=== PATIENT | male | born 1935 | race Caucasian/White ===

== ENCOUNTER → 2018-03-26 07:42 | Outpatient (CLI) | payer MEDICARE, OTHER, SELFPAY ==
[2018-03-26 09:13] LABS: Add Manual Diff / Slide Review NO; Basophils Percent Auto 0.5 % (0-2); Eosinophils Percent Auto 1.7 % (2-4); Hematocrit 43.6 % (41-53); Hemoglobin 14.8 g/dL (13.5-17.5); Lymphocytes Percent Auto 24.9 % (25-40); Mean Corpuscular Hemoglobin 32.6 PG (26-34); Mean Corpuscular Volume 95.9 fL (80-100); Monocytes Percent Auto 8.2 % (3-14); Neutrophils Absolute Auto 4900 /uL (3000-5900); Neutrophils Percent Auto 64.7 % (50-75); Platelet Count 211 X10^3/uL (150-400); Red Blood Cell Count 4.55 X10^6/uL (4.5-5.9); Red Cell Distribution Width 13.2 % (11.6-14.8); White Blood Cell Count 7.5 X10^3/uL (4.5-11.0)
[2018-03-26 09:37] LABS: Alanine Aminotransferase 34 IU/L (21-72); Albumin 4.3 g/dL (3.5-5.0); Albumin Globulin Ratio 1.3 (1.0-2.8); Alkaline Phosphatase 74 U/L (38-126); Aspartate Aminotransferase 41 IU/L (17-59); BUN Creatinine Ratio 32.5 (6-22); Bilirubin Total 0.7 mg/dL (0.2-1.3); Blood Urea Nitrogen 26 mg/dL (9-20); Calcium 9.7 mg/dL (8.4-10.2); Carbon Dioxide 30 mmol/L (22-32); Chloride 104 mmol/L (98-107); Cholesterol 197 mg/dL (140-199); Estimated Glomerular Filt Rate > 60.0 mL/min (>60); Globulin 3.4 g/dL (1.7-4.1); Glucose 91 mg/dL (80-110); HDL Cholesterol 39 mg/dL (40-60); HEMOLYSIS < 15 (0-50); LDL Cholesterol Calculated 110 mg/dL (<100); Potassium 4.6 mmol/L (3.4-5.1); Sodium 144 mmol/L (137-145); Total Protein 7.7 g/dL (6.3-8.2); Triglycerides 239 mg/dL (35-150)
[2018-03-26 10:18] LABS: Free T4, Direct Thyroxine 0.98 ng/dL (0.78-2.19)
[2018-03-26 10:32] LABS: Thyroid Stimulating Hormone 2.44 uIU/mL (0.47-4.68)
== END ==
PROVIDERS: Visit Provider Internal Medicine
DX: I10 Essential (primary) hypertension (principal); I25.10 Atherosclerotic heart disease of native coronary artery without angina pectoris; E78.5 Hyperlipidemia, unspecified
CPT/HCPCS: 36415; 80053; 80061; 84439; 84443; 85025

== ENCOUNTER → 2018-05-21 08:18 | Outpatient (CLI) | payer MEDICARE, OTHER, SELFPAY ==
--- NOTE | 2018-05-21 08:21 | DI.RAD.S_ITS ---
PROCEDURE: XR LUMBAR SPINE MIN 4V INDICATIONS: Spinal stenosis, site unspecified TECHNIQUE: 5 total views of the lumbar spine were acquired, including bilateral oblique views. COMPARISON: None. FINDINGS: Bones: Mild levoconvex scoliotic curvature is noted. 5 nonrib-bearing, lumbar type vertebral bodies are seen. There is minimal retrolisthesis at L1-L2. There is minimal anterolisthesis seen at the L3-L4 level. Minimal retrolisthesis is seen at L4-L5. There is minimal anterolisthesis at L5-S1. There is moderate to severe disc space narrowing at L4-L5, with moderate disc space narrowing at L1-L2 and mild to moderate disc space narrowing at L2-L3, L2-L4, and L5-S1. Facet arthropathy is seen throughout, which is most prominent inferiorly. Soft tissues: Overlying bowel gas pattern is normal. No suspicious soft tissue calcifications. Oblique images: No pars defects. IMPRESSION: Multiple levels of lower spine degenerative change are seen, which are worst at the L4-L5 level. No pars defects are seen. Mild levoconvex scoliotic curvature. Relatively prominent lower lumbar spine facet arthropathy. Dictated by: Omid Turner M.D. on 05/21/2018 at 8:29 Approved by: Omid Turner M.D. on 05/21/2018 at 8:32
== END ==
PROVIDERS: PCP Internal Medicine; Visit Provider Physical Medicine & Rehabilitation
DX: M51.36 Other intervertebral disc degeneration, lumbar region (principal); M47.816 Spondylosis without myelopathy or radiculopathy, lumbar region; M48.061 Spinal stenosis, lumbar region without neurogenic claudication; M96.1 Postlaminectomy syndrome, not elsewhere classified
CPT/HCPCS: 72110

== ENCOUNTER 2018-06-12 14:01 | Outpatient (CLI) | payer MEDICARE, OTHER, SELFPAY ==
--- NOTE | 2018-06-12 14:02 | DI.RAD.S_ITS ---
PROCEDURE: PAIN L/S FACET INJ/BLK 1ST ARON COMPARISON: None. INDICATIONS: SPONDYLOSIS FINDINGS: 6 intraoperative fluoroscopy images demonstrate localization and injection of left and right L4-L5 and L5-S1 facet joints. IMPRESSION: Fluoroscopy for pain management. Dictated by: Kaylie Brennan M.D. on 06/12/2018 at 17:19 Approved by: Kaylie Brennan M.D. on 06/12/2018 at 17:20
[2018-06-12 14:33] VITALS: BP 144/87; PULSE 75; RESP 20; TEMP 36.2; O2SAT 99
[2018-06-12 14:44] VITALS: BP 159/89; PULSE 75; RESP 16; O2SAT 100
[2018-06-12 14:54] VITALS: BP 158/99; PULSE 81; RESP 16; O2SAT 99
[2018-06-12] MEDS: IOPAMIDOL 15 ML VIAL 3 ML INJ (14:55)
[2018-06-12] MEDS: BUPIVACAINE 0.5% (PF) VIAL 2 ML INJ (14:56)
[2018-06-12] MEDS: BETAMETHASONE 30 MG/5 ML MDV 12 MG INJ (14:56)
[2018-06-12] MEDS: LIDOCAINE 1% 20 ML INJ 10 ML INJ (14:56)
[2018-06-12 14:57] VITALS: BP 160/91; PULSE 79; RESP 16; O2SAT 99
--- NOTE | 2018-06-12 14:59 | PC.NURSE ---
no sedation meds given during procedure. pt being assisted from table and transported to post proc area in stable position
--- NOTE | 2018-06-12 15:03 | P.PCN_ITS ---
Procedures Date/Time Date of procedure: 06/12/18 Time of procedure: 15:02 General Procedure description: PREOP DIAGNOSIS 1. FACET ARTHROPATHY 2. AXIAL LBP 3. MULTILEVEL DDD POST OP DIAGNOSIS 1. FACET ARTHROPATHY 2. AXIAL LBP 3. MULTILEVEL DDD PROCEDURES 1. FLUORSCOPICALLY GUIDED CONTRAST CONTROLLED FACET JOINT INJECTIONS BILATERAL L4/5, L5/S1 PHYSICIAN: Bry Marie, DO INDICATIONS Chuckie is referred by Dr. Proctor for treatment of Axial LBP FINDINGS Multilevel Facet Arthropathy with Clinically significant axial LBP DESCRIPTION OF PROCEDURE Fluoroscopically guided, contrast-controlled bilateral L4/5, L5/S1 facet joint injections. Following denial of allergy and review of potential side effects and complications, including, but not necessarily limited to, infection, allergic reaction, local tissue breakdown, stroke, temporary or permanent nerve injury, paralysis, and possible , the patient indicated that the patient understood and agreed to proceed. An informed consent document was signed by the patient, witnessed by a nurse, and placed in the patient's chart. Additionally, other treatment options including medications, modalities, and physical therapy were reviewed with the patient. After review of previous anaesthesic history and IV conscious sedation the patient was deemed safe to proceed with todays procedure with IV conscious sedation as ASA class II designation. Safety time-out was performed to confirm patient ID, procedure to be performed and site of procedure. IV sedation was deemed unnecessary and thus not administered by the RN after DO order, during the course of the procedure while the patient remained responsive to all verbal commands In the prone position, following sterile prep and drape of the lumbar region, the posterior aspect of the L4/5, L5/S1 facet joints were identified fluoroscopically. The skin was anesthetized via a 25-gauge 1.5-inch needle with 1% lidocaine solution into the corresponding facet joints. At this point, a 22-gauge 3.5-inch spinal needle was atraumatically introduced and advanced under fluoroscopic guidance into the corresponding facet joints. Following negative aspiration, injections of approximately 0.2-cc of Isovue 200 confirmed interarticular placement without vascular uptake. The identical procedure was then performed at the L4/5, L5/S1 facet joints on the left. Radiological data, including multiple fluoroscopic views of the lumbosacral spine, reveal a spinal needle at the L4/5, L5/S1 facet joints bilaterally. Subsequent views show flow of contrast material both superiorly and inferiorly within the joint space without vascular or intrathecal uptake. At this point, a total of 0.5 cc including a mixture of 0.25cc Marcaine and 0.25cc betamethasone was injected without complication into each of the corresponding facet joints. The patient tolerated the procedure well without signs or symptoms of complications prior to transfer to the recovery area continued monitoring without incident. The patient was then transferred to the recovery area where they were observed for an appropriate period of time after the injection. The patient reported a VAS score of 7 prior to the procedure and a post- procedure VAS of 0. Total Fluoroscopy Time: 20.3 seconds Total Conscious Sedation Time: 24min POST OP INSTRUCTIONS The patient was provided a Pain Log to continue to record their response to the target-specific procedure prior to follow-up visit with their referring physician. Additionally, specific post-injection care instructions and a contact number to our office were provided if concerns arise regarding possible complications associated with the procedure are suspected. Bry Marie, Complications: none
--- NOTE | 2018-06-12 15:28 | PC.NURSE ---
pt went unresponsive post procedure, dr granados at bedside and pt taken to er via stretcher,. pt placed on monitor nand iv started. pt care given over to dr beasley er.
--- NOTE | 2018-06-13 12:43 | PC.NURSE ---
FOLLOW UP CALL MADE, PT STATES PAIN DECREASED SINCE PROCEDURE AND DENIES ANY FURTHER SYNCOPAL EPISODES AFTER NOTED EPISODE IN POST CARE AREA AFTER PROCEDURE IN WHICH PT WAS TRANSFERED TO ED FOR FURTHER EVALUATION.
== END 2018-06-12 16:12 | disposition admitted as inpatient to this hospital (09) ==
LOC: RAD 14:01
PROVIDERS: PCP Internal Medicine; Visit Provider Physical Medicine & Rehabilitation
DX: M47.816 Spondylosis without myelopathy or radiculopathy, lumbar region (principal); M47.817 Spondylosis without myelopathy or radiculopathy, lumbosacral region; M51.36 Other intervertebral disc degeneration, lumbar region; M51.37 Other intervertebral disc degeneration, lumbosacral region; M96.1 Postlaminectomy syndrome, not elsewhere classified; M54.5 Low back pain; M48.00 Spinal stenosis, site unspecified; G89.29 Other chronic pain; G62.9 Polyneuropathy, unspecified
CPT/HCPCS: 64493; 64494; J0702; J2250

== ENCOUNTER 2018-06-12 15:18 | Emergency (ER) | payer MEDICARE, OTHER, SELFPAY ==
--- NOTE | 2018-06-12 15:24 | DI.CT.S_ITS ---
PROCEDURE: CT HEAD/BRAIN WO CON INDICATIONS: syncope on Xarelto, previous CVA TECHNIQUE: Noncontrast 4.5 mm thick angled axial sections acquired from the foramen magnum to the vertex, with coronal and sagittal reformats. For radiation dose reduction, the following was used: automated exposure control, adjustment of mA and/or kV according to patient size. COMPARISON: Outside Facility, RG, CT HEAD WITH CONTRAST, 10/06/2016, 13:17. FINDINGS: Image quality: Excellent. CSF spaces: Basal cisterns are patent. No extra-axial fluid collections. The ventricles are symmetric in size and shape. Brain: No intracranial bleeds or masses. There is cerebral volume loss for age, with resultant ventricular and sulcal prominence. There are periventricular and deep white matter chronic small vessel ischemic changes. There is intracranial internal carotid artery atherosclerosis. Skull and face: There is a chronic appearing bony defect involving the right frontal bone, which is partially healed compared to the outside 2017 CT examination. Calvarium and visualized facial bones appear intact, without suspicious lesions. Sinuses: Visualized sinuses and mastoids are clear. IMPRESSION: Negative for acute hemorrhage. No doe CT findings of acute stroke can be seen. If there is strong clinical suspicion for an acute stroke, please consider an MRI for further evaluation, as it is more sensitive (assuming that there is no contraindication to MRI). Healing lesion of the right frontal bone. Dictated by: Omid Turner M.D. on 06/12/2018 at 14:49 Approved by: Omid Turner M.D. on 06/12/2018 at 14:51
--- NOTE | 2018-06-12 15:24 | DI.RAD.S_ITS ---
PROCEDURE: XR CHEST 1V INDICATIONS: syncope TECHNIQUE: One view of the chest was acquired. COMPARISON: None. FINDINGS: Surgical changes and devices: An electronic device in the left thorax is noted. Lungs and pleura: No pleural effusions or pneumothorax. Lungs are clear. Mediastinum: Mediastinal contours appear normal. Heart size is normal. Bones and chest wall: There is left second rib fractures anteriorly. Overlying soft tissues appear unremarkable. IMPRESSION: 1. No acute cardiopulmonary disease. 2. Left second rib fracture of uncertain chronicity. Dictated by: Kaylie Brennan M.D. on 06/12/2018 at 16:03 Approved by: Kaylie Brennan M.D. on 06/12/2018 at 16:05
--- NOTE | 2018-06-12 15:33 | ED.SYNCOPE ---
HPI - Syncope General Chief Complaint: Syncope Stated Complaint: Syncope Time Seen by Provider: 06/12/18 15:23 Source: patient Mode of arrival: ambulatory Limitations: no limitations History of Present Illness HPI narrative: Patient is a 83-year-old male who had a syncopal episode after a spinal injection. He is on Xarelto. He stood up got extremely lightheaded and clammy and diaphoretic. He became unresponsive briefly. His he does have a history of a CVA and has chronic left-sided eyelid droop. He is now responsive. Family states that he frequently has these episodes. He has a 3 year loop recorder. 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 The loop recorder apparently does not show anything. They now live up here he he is established with a PCP but not a supervisor commissary production. Related Data Home Medications Medication Instructions Recorded Confirmed clopidogrel 75 mg tablet 75 mg PO DAILY 03/02/18 06/08/18 gabapentin 100 mg capsule 100 mg PO DAILY 03/02/18 06/08/18 losartan 100 mg tablet 100 mg PO DAILY 03/02/18 06/12/18 zevegvnp-pza-dktdm acid 300 1 tab PO DAILY 03/02/18 06/08/18 mcg-lycopene 600 mcg-lutein 300 mcg tablet simvastatin 20 mg tablet 20 mg PO QPM 03/02/18 06/12/18 timolol maleate 0.5 % eye drops 1 drp EYE-BOTH DIRECTED ml 05/04/18 06/12/18 Previous Rx's Medication Instructions Recorded gabapentin 400 mg capsule 400 mg PO TID #90 cap 05/10/18 Allergies Allergy/AdvReac Type Severity Reaction Status Date / Time alprazolam [From Xanax] Allergy Severe Passed Out Verified 06/12/18 14:38 oxycodone Allergy Severe Passed Out Verified 06/12/18 14:38 Review of Systems Review of Systems All systems reviewed & are unremarkable except as noted in HPI and below Constitutional Denies chills, Denies fever(s), Denies lethargy and Denies weakness Cardiovascular Reports as per HPI, Reports syncope, Denies dyspnea and Denies dyspnea on exertion Respiratory Denies cough, Denies dyspnea, Denies dyspnea on exertion and Denies wheezing Gastrointestinal Gastrointestinal: Denies abdominal pain, Denies change in bowel habits, Denies diarrhea, Denies nausea and Denies vomiting Musculoskeletal Denies back pain, Denies muscle weakness, Denies numbness and Denies tingling Integumentary/Breasts Denies pruritus, Denies erythema, Denies rash and Denies wounds Neurologic Reports syncope, Denies numbness, Denies tingling and Denies weakness Allergic/Immunologic Denies wheezing [facility] Medical History Hypertension (Chronic ~2016) Hyperlipidemia (Chronic) CAD (coronary artery disease) (Chronic ~2007) Spinal stenosis (Chronic) Osteoarthritis (Chronic) Chronic back pain (Chronic) Vertigo (Chronic ~2013) Sick sinus syndrome (Chronic) Peripheral neuropathy (Chronic ~1979) H/O: stroke (Inactive 04/10/16) Vision disorder (Chronic) Measles (Resolved) Mumps (Resolved) Squamous cell skin cancer (Resolved ~2015) Colon polyps (Inactive ~2010) Skin cancer (Inactive) Family History Father No problems noted. Mother No problems noted. Brother Diabetes mellitus Hypertension Hyperlipidemia Grandfather No problems noted. 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 travel history: other (Travel a lot) leisure activities: music and other (Writing, travel) Smoking Status: Former smoker Tobacco: How many years used: 10 Smokeless tobacco user: other (cigarettes) quit status: quit date established (1970) alcohol intake: current (1-2 drinks per week) substance use type: does not use Exam Initial Vital Signs Initial Vital Signs: Vital Signs Temperature 97.6 F 06/12/18 16:00 Pulse Rate 59 L 06/12/18 16:00 Respiratory Rate 20 06/12/18 16:00 Blood Pressure 91/63 06/12/18 16:00 Pulse Oximetry 97 06/12/18 16:00 GENERAL: Diaphoretic pale elderly male responsive follows commands currently in Trendelenburg position HEENT: Head atraumatic,EOMI, pupils reactive, left eye droop CARDIOVASCULAR: Regular rate and rhythm without murmurs, rubs or gallops. RESPIRATORY: Breath sounds equal bilaterally, no wheezes rales or rhonchi. ABDOMEN: Soft, nontender. Normoactive bowel sounds all 4 quadrants. No guarding or rebound. EXTREMITIES: Normal range of motion, no clubbing or edema. Neurovascularly intact NEUROLOGICAL: Alert and oriented x4.Normal gait and speech. Cranial nerves II through XII grossly intact. Government Relations Director strength equal bilaterally moving all extremities SKIN: Warm, dry, no laceration, no petechiae, no rashes or lesions. Course Orders Ordered: Discontinued Medications Sodium Chloride (Normal Saline 0.9%) 1,000 mls @ 1,000 mls/hr IV BOLUS ONE Stop: 06/12/18 16:23 Last Infusion: 06/12/18 17:11 Dose: 0 mls/hr Admin: 06/12/18 16:00 Dose: 1,000 mls/hr Vital Signs - 8 hr 06/12/18 16:00 Temperature 97.6 F Pulse Rate 59 L Respiratory Rate 20 Blood Pressure 91/63 Pulse Oximetry 97 MDM - Syncope Lab Data Attestation: I reviewed the patient's lab results. Result diagrams: 06/12/18 15:30 06/12/18 15:30 Lab Results 06/12/18 06/12/18 06/12/18 Range/Units 15:30 15:30 15:30 WBC 8.4 (4.5-11.0) X10^3/uL RBC 4.14 L (4.5-5.9) X10^6/uL Hgb 13.5 (13.5-17.5) g/dL Hct 39.6 L (41-53) % MCV 95.8 (80-100) fL MCH 32.6 (26-34) PG MCHC 34.0 (30-36) % RDW 13.4 (11.6-14.8) % Plt Count 209 (150-400) X10^3/uL Neut % (Auto) 53.7 (50-75) % Lymph % (Auto) 36.3 (25-40) % Robertson % (Auto) 8.6 (3-14) % Eos % (Auto) 1.1 L (2-4) % Baso % (Auto) 0.3 (0-2) % Neut # (Auto) 4500 (1896-7568) /uL PT 11.3 (10.1-12.7) SECONDS INR 1.1 (0.9-1.3) Sodium 141 (137-145) mmol/L Potassium 4.4 (3.4-5.1) mmol/L Chloride 106 (98-107) mmol/L Carbon Dioxide 24 (22-32) mmol/L BUN 22 H (9-20) mg/dL Creatinine 0.80 (0.66-1.25) mg/dL Estimated GFR > 60.0 (>60) mL/min BUN/Creatinine Ratio 27.5 H (6-22) Glucose 102 (80-110) mg/dL Calcium 8.6 (8.4-10.2) mg/dL Total Bilirubin 0.5 (0.2-1.3) mg/dL AST 38 (17-59) IU/L ALT 41 (21-72) IU/L Alkaline Phosphatase 66 (38-126) U/L Total Creatine Kinase 231 H (55-170) U/L CK-MB (CK-2) 8.01 H (<2.37) ng/mL CK-MB (CK-2) Rel Index 3.5 (1.5-5.0) % Troponin I < 0.012 (0.01-0.034) ng/mL Total Protein 7.0 (6.3-8.2) g/dL Albumin 4.0 (3.5-5.0) g/dL Globulin 3.0 (1.7-4.1) g/dL Albumin/Globulin Ratio 1.3 (1.0-2.8) Point of Care Testing Glucose POC 91 Imaging Data Chest x-ray: Radiologist's impression: PROCEDURE: XR CHEST 1V INDICATIONS: syncope TECHNIQUE: One view of the chest was acquired. COMPARISON: None. FINDINGS: Surgical changes and devices: An electronic device in the left thorax is noted. Lungs and pleura: No pleural effusions or pneumothorax. Lungs are clear. Mediastinum: Mediastinal contours appear normal. Heart size is normal. Bones and chest wall: There is left second rib fractures anteriorly. Overlying soft tissues appear unremarkable. IMPRESSION: 1. No acute cardiopulmonary disease. 2. Left second rib fracture of uncertain chronicity. Dictated by: Kaylie Brennan M.D. on 06/12/2018 at 16:03 CT scan - head: Radiologist's impression: PROCEDURE: CT HEAD/BRAIN WO CON INDICATIONS: syncope on Xarelto, previous CVA TECHNIQUE: Noncontrast 4.5 mm thick angled axial sections acquired from the foramen magnum to the vertex, with coronal and sagittal reformats. For radiation dose reduction, the following was used: automated exposure control, adjustment of mA and/or kV according to patient size. COMPARISON: Outside Facility, RG, CT HEAD WITH CONTRAST, 10/06/2016, 13:17. FINDINGS: Image quality: Excellent. CSF spaces: Basal cisterns are patent. No extra-axial fluid collections. The ventricles are symmetric in size and shape. Brain: No intracranial bleeds or masses. There is cerebral volume loss for age, with resultant ventricular and sulcal prominence. There are periventricular and deep white matter chronic small vessel ischemic changes. There is intracranial internal carotid artery atherosclerosis. Skull and face: There is a chronic appearing bony defect involving the right frontal bone, which is partially healed compared to the outside 2017 CT examination. Calvarium and visualized facial bones appear intact, without suspicious lesions. Sinuses: Visualized sinuses and mastoids are clear. IMPRESSION: Negative for acute hemorrhage. No doe CT findings of acute stroke can be seen. If there is strong clinical suspicion for an acute stroke, please consider an MRI for further evaluation, as it is more sensitive (assuming that there is no contraindication to MRI). Healing lesion of the right frontal bone. Dictated by: Omid Turner M.D. on 06/12/2018 at 14:49 Approved by: Omid Turner M.D. on 06/12/2018 at 14:51 ECG Data Attestation: I personally reviewed and interpreted this ECG as follows: Prior ECG tracings: not available for review Interpretation: Normal sinus rhythm rate [address] changes no T-wave inversions AR interval 167 QRS 83, QTC 396 MDM Narrative Medical decision making narrative: Patient is ambulatory to the restroom he is overall feeling much better. Family states this is very typical of his previous episodes. Discharge Plan Departure Patient Disposition: Home Clinical Impression: Syncope, vasovagal Discharge Date/Time: 06/12/18 17:36 Interventions: ED Discharge Assessment Last Done: 06/12/18 17:36 Instructions: DI for Syncope in Adults (Fainting) Activity Restrictions/Additional Instructions: *You have been diagnosed with vasovagal hypotension *What to do: Recommend follow-up with local Cardiology. You should have your loop recorder evaluated *Continue to take medications as directed *Follow up with your primary care provider in 2-3 days *Return to ER if you should have recurrent syncopal episode, chest pain, heart palpitation, confusion or any new, worsening or concerning symptoms Prescriptions: No Action gabapentin 400 mg capsule 400 mg PO TID Qty: 90 RF: 2 clopidogrel 75 mg tablet 75 mg PO DAILY RF: 0 simvastatin 20 mg tablet 20 mg PO QPM RF: 0 gabapentin 100 mg capsule 100 mg PO DAILY RF: 0 losartan 100 mg tablet 100 mg PO DAILY RF: 0 fwuqgctj-cnk-TO-lycopen-lutein [Centrum Silver Men] 300-600-300 mcg tablet 1 tab PO DAILY RF: 0 timolol maleate 0.5 % drops 1 drp EYE-BOTH DIRECTED RF: 0 Referrals: Dalton Proctor MD [Primary Care Provider] - Steve Walker MD [Physician] -
[2018-06-12 15:40] LABS: Add Manual Diff / Slide Review NO; Basophils Percent Auto 0.3 % (0-2); Eosinophils Percent Auto 1.1 % (2-4); Hematocrit 39.6 % (41-53); Hemoglobin 13.5 g/dL (13.5-17.5); Lymphocytes Percent Auto 36.3 % (25-40); Mean Corpuscular Hemoglobin 32.6 PG (26-34); Mean Corpuscular Volume 95.8 fL (80-100); Monocytes Percent Auto 8.6 % (3-14); Neutrophils Absolute Auto 4500 /uL (3000-5900); Neutrophils Percent Auto 53.7 % (50-75); Platelet Count 209 X10^3/uL (150-400); Red Blood Cell Count 4.14 X10^6/uL (4.5-5.9); Red Cell Distribution Width 13.4 % (11.6-14.8); White Blood Cell Count 8.4 X10^3/uL (4.5-11.0)
[2018-06-12 15:46] LABS: INR 1.1 (0.9-1.3); Prothrombin Time 11.3 SECONDS (10.1-12.7)
[2018-06-12 15:52] LABS: Alanine Aminotransferase 41 IU/L (21-72); Albumin Globulin Ratio 1.3 (1.0-2.8); Alkaline Phosphatase 66 U/L (38-126); Aspartate Aminotransferase 38 IU/L (17-59); BUN Creatinine Ratio 27.5 (6-22); Bilirubin Total 0.5 mg/dL (0.2-1.3); Blood Urea Nitrogen 22 mg/dL (9-20); Calcium 8.6 mg/dL (8.4-10.2); Carbon Dioxide 24 mmol/L (22-32); Chloride 106 mmol/L (98-107); Creatine Kinase 231 U/L (55-170); Estimated Glomerular Filt Rate > 60.0 mL/min (>60); Glucose 102 mg/dL (80-110); HEMOLYSIS < 15 (0-50); Potassium 4.4 mmol/L (3.4-5.1); Sodium 141 mmol/L (137-145)
[2018-06-12 16:00] VITALS: BP 91/63; PULSE 59; RESP 20; TEMP 36.4; O2SAT 97
[2018-06-12] MEDS: SODIUM CHLORIDE 0.9% 1,000 ML 1000 ML IV (16:00)
[2018-06-12 16:04] LABS: Troponin I < 0.012 ng/mL (0.01-0.034)
[2018-06-12 16:07] LABS: CKMB % Relative Index 3.5 % (1.5-5.0); Creatine Kinase MB 8.01 ng/mL (<2.37)
--- NOTE | 2018-06-12 16:20 | PC.NURSE ---
pt reported lightheadedness following procedure in DI r/t spinal injections, was witnessed by nurse to appear pale, diaphoretic, was assisted to chair at that time and had a reported LOC lasting approx 10 sec, no fall/injury reported. On arrival pt appears pale, diaphoretic, supine position, responds appropriately to verbal, negative FAST exam, moving all ext, reports feels just weak, denies dizziness/headache/nausea/numbness/tingling/visual changes, NSR on monitor
[2018-06-12 16:30] VITALS: BP 127/61; PULSE 76; RESP 13
[2018-06-12 17:00] VITALS: BP 141/77; PULSE 81; RESP 11
[2018-06-12 17:36] VITALS: BP 144/77; PULSE 69; RESP 20; O2SAT 98
== END 2018-06-12 17:36 | disposition home or self-care (01) ==
PROVIDERS: Emergency Provider Emergency Medicine; PCP Internal Medicine
DX: R55 Syncope and collapse (principal); M47.816 Spondylosis without myelopathy or radiculopathy, lumbar region; M47.817 Spondylosis without myelopathy or radiculopathy, lumbosacral region; M51.36 Other intervertebral disc degeneration, lumbar region; M51.37 Other intervertebral disc degeneration, lumbosacral region; M96.1 Postlaminectomy syndrome, not elsewhere classified; M54.5 Low back pain; M48.00 Spinal stenosis, site unspecified; G89.29 Other chronic pain; G62.9 Polyneuropathy, unspecified
CPT/HCPCS: 36591; 64493; 64494; 70450; 71045; 80053; 82550; 82553; 82962; 84484; 85025; 85610; 93005; 96360; 99283; 99285; J0702; J2250

== ENCOUNTER 2018-08-07 14:46 | Outpatient (CLI) | payer MEDICARE, OTHER, SELFPAY ==
[2018-08-07] VITALS (9 sets, daily range): BP systolic 118–161; BP diastolic 63–94; PULSE 74–83; RESP 11–18; TEMP 36; O2SAT 97–100
--- NOTE | 2018-08-07 14:50 | DI.RAD.S_ITS ---
PROCEDURE: PAIN L/S FACET INJ/BLK 1ST ARON COMPARISON: [facility], , PAIN L/S FACET INJ/BLK 1ST ARON, 06/12/2018, 15:52. INDICATIONS: SPONDYLOSIS FINDINGS: Multiple intraoperative fluoroscopy images were obtained for localization during pain management. Needle localizations are labeled on the film. IMPRESSION: Fluoroscopy for pain management Dictated by: Kaylie Brennan M.D. on 08/08/2018 at 9:27 Approved by: Kaylie Brennan M.D. on 08/08/2018 at 9:32
--- NOTE | 2018-08-07 15:11 | PM.PROC.1 ---
Procedures Date/Time Date of procedure: 08/07/18 Time of procedure: 15:11 General Procedure description: Procedure description: 1. FACET ARTHROPATHY PROCEDURES: 1. BILATERAL- L4, L5 and S1 MB BLOCKS PHYSICIAN: Bry Marie DO INDICATIONS: Chuckie is referred by for treatment of Bilateral Axial LBP. DESCRIPTION OF PROCEDURE Fluoroscopically guided, contrast-controlled bilateral L4, L5 and S1 medial branch blocks with 0.5cc of 0.5% Marcaine. Following denial of allergy and review of potential side effects and complications, including, but not necessarily limited to, infection, allergic reaction, local tissue breakdown, nerve injury, paralysis, stroke and possible , the patient indicated that the patient understood and agreed to proceed. An informed consent document was signed by the patient, witnessed by a nurse, and placed in the patient's chart. After review of previous anaesthesic history and IV conscious sedation the patient was deemed safe to proceed with todays procedure with IV conscious sedation as ASA class II designation. Safety time-out was performed to confirm patient ID, procedure to be performed and site of procedure. IV sedation was accomplished with a combination of 3mg of Versed was administered by the RN after DO order, titrated to patient comfort during the course of the procedure while the patient remained responsive to all verbal commands In the prone position, following sterile prep and drape of the lumbar region, the right L4, L5 and S1 anatomical location of the medial branch of the dorsal ramus was identified fluoroscopically. Subsequently an anesthetic skin wheal using 1% lidocaine solution was initiated at each of the anatomical spots. Subsequently then a 22-gauge 3.5-inch spinal needle was atraumatically introduced and advanced under fluoroscopic guidance at each of the corresponding sites at the right L4, L5 and S1 MB. After negative aspiration, 0.2 cc of Isovue 200 was injected, confirming placement without vascular or intrathecal uptake. Subsequently then 0.5 cc of 0.5% Marcaine solution was injected at each of the corresponding sites at the right L4, L5 and S1 medial branch locations. The identical procedure was replicated on the left. The patient tolerated the procedure well without signs or symptoms of complications prior to transfer to the recovery area continued monitoring without incident. Post-procedure, the patient was monitored initiating provocative activities to measure the amount of relief from block of the facetogenic pain. The patient reported a VAS of 7 prior to the procedure and a post-procedure VAS of 1. It has been a pleasure to assist in the diagnostic and therapeutic care of your patient. Total Fluoroscopy Time: 24.8 seconds Total Conscious Sedation Time: 24min POST OP INSTRUCTIONS The patient was provided with a Pain Log to complete over the next several hours and subsequent days prior to the patient's follow up with the ordering physician. If the patient has saddle and side wire stitcher relief to the solution applied, then they may be a candidate for medial branch rhizotomy. The patient is aware, was provided, once again, with a Pain Log and will follow up with the referring physician for review and clinical correlation Bry Marie DO Complications: none
[2018-08-07] MEDS: MIDAZOLAM 5 MG/5 ML VIAL IV (15:20)
[2018-08-07] MEDS: BUPIVACAINE 0.5% (PF) VIAL 30 ML INJ (15:30)
[2018-08-07] MEDS: LIDOCAINE 1% 20 ML INJ 10 ML INJ (15:31)
[2018-08-07] MEDS: BETAMETHASONE 30 MG/5 ML MDV 12 MG INJ (15:31)
[2018-08-07] MEDS: IOPAMIDOL 15 ML VIAL 3 ML INJ (15:31)
--- NOTE | 2018-08-07 15:35 | PC.NURSE ---
Pt finished procedure at 1530, pt tolerated well, able to get off table with 2 person assist. Transferred via W/C to pre procedure room where pt resumed monitoring by Marie FLORENTINO.
--- NOTE | 2018-08-07 15:46 | PC.NURSE ---
ACCEPTING CARE OF PT IN POST PROC AREA. PT IN STABLE CONDITION AT THIS TIME.
--- NOTE | 2018-08-08 16:45 | PC.NURSE ---
FOLLOW UP CALL ATTEMPTED, LEFT MSG WITH CLINIC # FOR ANY QUESTIONS/CONCERNS.
== END 2018-08-07 16:26 | disposition home or self-care (01) ==
LOC: RAD 14:48
PROVIDERS: PCP Internal Medicine; Visit Provider Physical Medicine & Rehabilitation
DX: M47.817 Spondylosis without myelopathy or radiculopathy, lumbosacral region (principal); M47.816 Spondylosis without myelopathy or radiculopathy, lumbar region; M96.1 Postlaminectomy syndrome, not elsewhere classified
CPT/HCPCS: 64493; 64494; 99152; J0702; J2250

== ENCOUNTER 2018-08-09 12:40 | Outpatient (RCR) | payer MEDICARE, OTHER, SELFPAY ==
--- NOTE | 2018-08-14 17:18 | PT.OIE ---
Current Diagnoses Other chronic pain (08/09/18) Spondylosis without myelopathy or radiculopathy, lumbosacral region (08/09/18) Spinal stenosis, site unspecified (08/09/18) Spinal stenosis, cervical region (08/09/18) Dorsalgia, unspecified (08/09/18) Postlaminectomy syndrome, not elsewhere classified (08/09/18) Past Medical History (Last Reviewed 07/11/18 @ 13:32 by Bry Marie DO) Lumbar post-laminectomy syndrome (Chronic) Cervical stenosis of spinal canal (Chronic) Lumbosacral spondylosis (Chronic) Hypertension (Chronic ~2016) Hyperlipidemia (Chronic) CAD (coronary artery disease) (Chronic ~2007) Spinal stenosis (Chronic) Osteoarthritis (Chronic) Chronic back pain (Chronic) Vertigo (Chronic ~2013) Sick sinus syndrome (Chronic) Peripheral neuropathy (Chronic ~1979) H/O: stroke (Inactive 04/10/16) Vision disorder (Chronic) Measles (Resolved) Mumps (Resolved) Squamous cell skin cancer (Resolved ~2015) Colon polyps (Inactive ~2010) Skin cancer (Inactive) Provider Visit Care Team Role Provider Type Dalton Proctor MD Primary Care Provider Physician Specialty: Internal Medicine Address: [address] [place] [address] Email: [email or web address] Bry Marie DO Attending Provider Physician Specialty: Physiatry Pain Management Address: [address] [place] [address] Email: Physical Therapy Initial Evaluation PT-OP-A Visit Information Start: 08/09/18 16:24 Freq: Status: Active Protocol: Document 08/09/18 16:25 [facility] (Rec: 08/09/18 16:30 [facility] [email or web address]) Out-Patient Physical Therapy Visit Information Visit Information Visit Type Initial Evaluation Visit Note Chuckie is being referred for cervical stenosis of the spinal canal and lumbosacral spondylosis. At this time his only complaint is right sided shoulder pain and only at night. He notes that since the injections in his lumbar spine that his shoulder pain is also a little better. He did not wish to work on the lumbar spine at this time Visit Start Time 13:00 Visit Stop Time 13:45 Total Visit Minutes 45 Visit Number 1 Evaluation Information Evaluation Date 08/09/18 PT-OP-B Current Condition Start: 08/09/18 16:24 Freq: Status: Active Protocol: Document 08/09/18 13:00 [facility] (Rec: 08/14/18 17:18 [facility] [email or web address]) Current Condition History of Current Condition Onset Date chronic Current Complaints c/o right sided shoulder pain History of Current Condition 83 year old male with c/o pain in the right shoulder when sleeping at night. He notes his shoulder does not bother him during the day but during the night when he is trying to sleep he ends up being woken up due to pain. Chuckie has recently had a series of cortisone injections into the lumbar spine and he notes that this has actually helped his shoulder some as it is not as painful as it was. Pain is rated 5/10 in the right shoulder at night. I talked with Chuckie today about his referral for his lumbosacral spondylosis. He notes his back is doing fine and he did not wish to do any PT at this time for his back Treatment Goals Patient/Caregiver Goals to reduce right sided shoulder pain at night PT-OP-F Manual Assessment Start: 08/09/18 16:24 Freq: Status: Active Protocol: Document 08/09/18 13:00 [facility] (Rec: 08/14/18 17:18 [facility] [email or web address]) Manual Assessments Soft Tissue Assessment Soft Tissue Mobility Assessment tightness in the upper trapezius, pectoralis major and minor, scalenes B PT-OP-K Range of Motion Start: 08/09/18 16:24 Freq: Status: Active Protocol: Document 08/09/18 13:00 [facility] (Rec: 08/14/18 17:18 [facility] [email or web address]) Cervical Spine Range of Motion Cervical Spine Active Testing Position Sitting Flexion 60 Extension 15 Rotation Left 50 Rotation Right 40 Lateral Flexion Left 10 Lateral Flexion Right 5 ROM Limitations Soft Tissue Tightness Bony Restriction Muscle Tone Pain Comments pain in the cervical spine with both right rotation and sidebending R Shoulder Goniometric Range of Motion Shoulder Measured in Degrees Right Shoulder ROM WFL No Testing Position Sitting Flexion 150 Abduction 145 External Rotation at 0 degrees Abduction 45 Internal Rotation 40 Internal Rotation Behind Back (text) to sacrum PT-OP-T Assessment and Plan Start: 08/09/18 16:24 Freq: Status: Active Protocol: Document 08/09/18 13:00 [facility] (Rec: 08/14/18 17:18 [facility] [email or web address]) Physical Therapy Assessment Rehab Potential Rehabilitation Potential Good Evaluation Complexity Number of Personal Factors/Comorbidities 0 Number of Body Systems Impaired 1-2 Clinical Presentation at Evaluation Stable Impairments Impairments Activity Tolerance Functional Activities Pain Posture ROM Soft Tissue Mobility Strength Tone Goals Three Impairment decreased ROM of the right shoulder and cervical spine Short Term Goal (STG) Improve pain free cervical and shoulder ROM to WFL STG Duration 5 weeks Two Impairment Right sided shoulder pain rated 5/10 only at night Short Term Goal (STG) Reduce complaints of right sided shoulder pain by correcting the neck position for sleep and working on cervical spine stretching. STG Duration 5 weeks One Impairment Chuckie lacks a HEP for cervical spine and shoulder stretching Short Term Goal (STG) Chuckie is independent with a home stretching for the cervical spine and shoulder STG Duration 5 weeks Assessment Summary Assessment Aleksey presents to physical therapy today with his diagnosis of spinal stenosis, cervical stenosis of spinal canal and lumbosacral spondylosis. His only complaint at this time is right sided shoulder pain at night. This is most likely stemming from his cervical spine. I was able to produce his symptoms of shoulder pain with cervical rotation to the right and with right sidebending. I did talk to him about working on a program for his back and he did not wish to do that at this time as it is feeling good. I gave Chuckie a list of stretches to work on both for his neck and for his shoulder and he felt comfortable doing these exercises at home. He wished to be seen for one visit only however I told him I am happy to work on additional visits should he feel he needs them. Physical Therapy Plan Frequency and Duration Frequency of Treatment 1x/Week Duration of Treatment 8 Plan of Care Start Date 08/09/18 Plan of Care End Date 10/04/18 Therapeutic Interventions Therapeutic Interventions Home Exercise Program Manual Therapy Self-Care/Home Management Soft Tissue Mobilization Therapeutic Exercises Next Visit Focus/Plan Next Note Type Treatment Note Next Visit Plan review ther ex next visit and progress as tolerated
--- NOTE | 2018-08-14 17:18 | PT.OPPOC ---
Current Diagnoses Other chronic pain (08/09/18) Spondylosis without myelopathy or radiculopathy, lumbosacral region (08/09/18) Spinal stenosis, site unspecified (08/09/18) Spinal stenosis, cervical region (08/09/18) Dorsalgia, unspecified (08/09/18) Postlaminectomy syndrome, not elsewhere classified (08/09/18) Provider Visit Care Team Role Provider Type Dalton Proctor MD Primary Care Provider Physician Specialty: Internal Medicine Address: [address] [place] [address], [id number] Email: [email or web address] Bry Marie DO Attending Provider Physician Specialty: Physiatry Pain Management Address: [address] [place] [address], [id number] Email: Plan Of Care PT-OP-T Assessment and Plan Start: 08/09/18 16:24 Freq: Status: Active Protocol: Document 08/09/18 13:00 [facility] (Rec: 08/14/18 17:18 [facility] [email or web address]) Physical Therapy Assessment Rehab Potential Rehabilitation Potential Good Evaluation Complexity Number of Personal Factors/Comorbidities 0 Number of Body Systems Impaired 1-2 Clinical Presentation at Evaluation Stable Impairments Impairments Activity Tolerance Functional Activities Pain Posture ROM Soft Tissue Mobility Strength Tone Goals Three Impairment decreased ROM of the right shoulder and cervical spine Short Term Goal (STG) Improve pain free cervical and shoulder ROM to WFL STG Duration 5 weeks Two Impairment Right sided shoulder pain rated 5/10 only at night Short Term Goal (STG) Reduce complaints of right sided shoulder pain by correcting the neck position for sleep and working on cervical spine stretching. STG Duration 5 weeks One Impairment Chuckie lacks a HEP for cervical spine and shoulder stretching Short Term Goal (STG) Chuckie is independent with a home stretching for the cervical spine and shoulder STG Duration 5 weeks Assessment Summary Assessment Aleksey presents to physical therapy today with his diagnosis of spinal stenosis, cervical stenosis of spinal canal and lumbosacral spondylosis. His only complaint at this time is right sided shoulder pain at night. This is most likely stemming from his cervcial spine. I was able to produce his symptoms of shoulder pain with cervical rotation to the right and with right sidebending. I did talk to him about working on a program for his back and he did not wish to do that at this time as it is feeling good. I gave Chuckie a list of stretches to work on both for his neck and for his shoulder and he felt comfortable doing these exercises at home. He wished to be seen for one visit only however I told him I am happy to work on additional visits should he feel he needs them. Physical Therapy Plan Frequency and Duration Frequency of Treatment 1x/Week Duration of Treatment 8 Plan of Care Start Date 08/09/18 Plan of Care End Date 10/04/18 Therapeutic Interventions Therapeutic Interventions Home Exercise Program Manual Therapy Self-Care/Home Management Soft Tissue Mobilization Therapeutic Exercises Next Visit Focus/Plan Next Note Type Treatment Note Next Visit Plan review ther ex next visit and progress as tolerated Plan of Care Dates Plan of Care Start Date 08/09/18 Plan of Care End Date 10/04/18 Please Sign and Return: I have reviewed this Plan of Care and certify that the skilled therapy services above are required to meet the patient?s needs. Physician Signature Date Printed Name and Credentials Clinical Instructor Signature Printed Name and Credentials
--- NOTE | 2019-04-02 14:13 | PT.OPDS ---
Current Diagnoses Other chronic pain (08/09/18) Spondylosis without myelopathy or radiculopathy, lumbosacral region (08/09/18) Spinal stenosis, site unspecified (08/09/18) Spinal stenosis, cervical region (08/09/18) Dorsalgia, unspecified (08/09/18) Postlaminectomy syndrome, not elsewhere classified (08/09/18) Visit Care Team Role Provider Type Dalton Proctor MD Primary Care Provider Physician Specialty: Internal Medicine Address: [address] [place] [address], [address], [address] Email: [email or web address] Bry Marie DO Attending Provider Physician Specialty: Physiatry Pain Management Address: [address] [place] [address], [id number] Email: [email or web address] Visit Number Visit Number 1 Discharge Summary PT-OP-B Current Condition Start: 08/09/18 16:24 Freq: Status: Active Protocol: Document 08/09/18 13:00 [facility] (Rec: 08/14/18 17:18 [facility] [id number]) Current Condition History of Current Condition Onset Date chronic Current Complaints c/o right sided shoulder pain History of Current Condition 83 year old male with c/o pain in the right shoulder when sleeping at night. He notes his shoulder does not bother him during the day but during the night when he is trying to sleep he ends up being woken up due to pain. Chuckie has recently had a series of cortisone injections into the lumbar spine and he notes that this has actually helped his shoulder some as it is not as painful as it was. Pain is rated 5/10 in the right shoulder at night. I talked with Chuckie today about his referral for his lumbosacral spondylosis. He notes his back is doing fine and he did not wish to do any PT at this time for his back Treatment Goals Patient/Caregiver Goals to reduce right sided shoulder pain at night PT-OP-F Manual Assessment Start: 08/09/18 16:24 Freq: Status: Active Protocol: Document 08/09/18 13:00 [facility] (Rec: 08/14/18 17:18 [facility] [email or web address]) Manual Assessments Soft Tissue Assessment Soft Tissue Mobility Assessment tightness in the upper trapezius, pectoralis major and minor, scalenes B PT-OP-K Range of Motion Start: 08/09/18 16:24 Freq: Status: Active Protocol: Document 08/09/18 13:00 [facility] (Rec: 08/14/18 17:18 [facility] [email or web address]) Cervical Spine Range of Motion Cervical Spine Active Testing Position Sitting Flexion 60 Extension 15 Rotation Left 50 Rotation Right 40 Lateral Flexion Left 10 Lateral Flexion Right 5 ROM Limitations Soft Tissue Tightness,Bony Restriction,Muscle Tone,Pain Comments pain in the cervical spine with both right rotation and sidebending R Shoulder Goniometric Range of Motion Shoulder Right Shoulder ROM WFL No Testing Position Sitting Flexion 150 Abduction 145 External Rotation at 0 degrees Abduction 45 Internal Rotation 40 Internal Rotation Behind Back (text) to sacrum PT-OP-T Assessment and Plan Start: 08/09/18 16:24 Freq: Status: Active Protocol: Document 04/02/19 14:12 [facility] (Rec: 04/02/19 14:13 [facility] [email or web address]) Physical Therapy Plan Discharge Physical Therapy Discharge Reasons No Longer Attending PT Discharge Comments Chuckie has not been seen since his initial visit in July for PT. No further treatments have been done. He will be discharged at this time
== END 2019-04-02 13:40 ==
LOC: PHYS 12:40
PROVIDERS: PCP Internal Medicine; Visit Provider Physical Medicine & Rehabilitation
DX: M47.817 Spondylosis without myelopathy or radiculopathy, lumbosacral region (principal); M96.1 Postlaminectomy syndrome, not elsewhere classified; M48.02 Spinal stenosis, cervical region; M48.00 Spinal stenosis, site unspecified; M54.9 Dorsalgia, unspecified; G89.29 Other chronic pain
CPT/HCPCS: 97110; 97161

== ENCOUNTER 2018-09-06 07:31 | Day surgery (SDC) | payer MEDICARE, OTHER, SELFPAY ==
[2018-09-06] MEDS: PROPARACAINE 0.5% OPHTH SOL 2 DROPS EYE-OP (07:56)
[2018-09-06] MEDS: CATARACT EYE COMPOUND (10 DROPS/SYRINGE) 3 DROPS EYE-OP (08:00)
[2018-09-06 08:02] VITALS: BMI 24.6
[2018-09-06 08:12] VITALS: BP 150/79; PULSE 66; RESP 20; TEMP 36; O2SAT 99
--- NOTE | 2018-09-06 08:35 | PM.PREOP ---
Pre-operative Note Interval Note History & Physical reviewed/Exam performed by Physician: Yes Changes to H&P: No
[2018-09-06] MEDS: CHONDROIDTIN/SOD HYALURONATE 1.05 ML SYRINGE INTRAOCULA (08:50)
[2018-09-06] MEDS: MOXIFLOXACIN OPHTH DROPS 3 ML BOTTLE 2 DROPS INJ (08:50)
[2018-09-06] MEDS: LIDOCAINE JELLY 2% 5 ML 1 APPLIC TOP (08:50)
[2018-09-06] MEDS: BALANCED SALT IRRIG SOLN NO.2 500 ML, EPINEPHrine 1 MG IRR (08:51)
[2018-09-06] MEDS: PHENYLEPHRINE/LIDOCAINE VIAL (OR) 0.2 ML EYE-OP (08:51)
[2018-09-06] MEDS: TETRACAINE 0.5% OPHTH DROPS 4 ML 2 DROPS EYE-RIGHT (08:52)
--- NOTE | 2018-09-06 09:28 | PM.OP.1 ---
Procedure & Clinicians Procedure: cataract extraction with intraocular lens implant, right Indications: nuclear sclerosis, visually significant, right Surgeon: Bennie Ca Click Yes if Unassisted: Yes Anesthesia Type: MAC +/- Operative Notes Procedure in detail: The patient was brought to the operating suite. The correct patient, surgical site and lens were confirmed. 0.5 % tetracaine drops were placed in the right eye. The patient was prepped and draped in the typical sterile manner. A lid speculum was placed in the eye. 3.5% lidocaine gel was placed on the eye. A paracentesis port was created with a side-port blade. 0.1 mL of 1% preservative free lidocaine was injected into the anterior chamber. Viscoelastic was injected into the anterior chamber. A 2.6mm keratome was used to create a clear corneal temporal incision. Cystotome and Utrata forceps were used to create a continuous curvilinear capsulorrhexis. Balanced salt solution was used to hydrodissect the nucleus. Phacoemulsification was used to remove the lens. The capsular bag was inflated with viscoelastic. A Ordaz ZBOO +15.0D lens was inserted into the capsule. Viscoelastic was removed and the wound hydrated. The wound was sutured with a 10-0 nylon, knot buried, and found to be leak free and the eye was assessed to be at normal physiologic pressure. 0.1mL Vigamox was injected into the anterior chamber. The lid speculum was removed. Maxitrol ointment was applied to the eye and the eye was pressure patched. The patient left the operating room in excellent condition. Complications: none Condition: stable Disposition: same day surgery
[2018-09-06] MEDS: NEOMYCIN/POLY/DEX OPHTH OINT 1 APPLIC EYE-RIGHT (09:30)
[2018-09-06 09:44] VITALS: BP 131/70; PULSE 66; RESP 16; TEMP 36.2; O2SAT 100
== END 2018-09-06 09:57 | disposition home or self-care (01) ==
PROVIDERS: PCP Internal Medicine; Visit Provider Ophthalmology
DX: H25.11 Age-related nuclear cataract, right eye (principal); I10 Essential (primary) hypertension
CPT/HCPCS: J0171; J2704

== ENCOUNTER 2018-10-09 10:03 | Outpatient (CLI) | payer MEDICARE, OTHER, SELFPAY ==
[2018-10-09] VITALS (13 sets, daily range): BP systolic 111–141; BP diastolic 60–96; PULSE 67–83; RESP 16–18; TEMP 36.4; O2SAT 98–100
--- NOTE | 2018-10-09 10:05 | DI.RAD.S_ITS ---
PROCEDURE: PAIN L/S MED/LAT N RFA BILAT INDICATIONS: SPONDYLOSIS FINDINGS: Fluoroscopic spot filming was performed to verify placement of spinal needles at the L4, L5, S1 level(s), as labeled on the films. Appropriate location(s) of the needle tip(s) was confirmed by injection of iodinated contrast. Dictated by: Michael Myers M.D. on 10/09/2018 at 14:19 Approved by: Michael Myers M.D. on 10/09/2018 at 14:20
[2018-10-09] MEDS: MIDAZOLAM 5 MG/5 ML VIAL IV (11:09)
[2018-10-09] MEDS: LIDOCAINE 1% 20 ML INJ 10 ML INJ (11:17)
[2018-10-09] MEDS: BETAMETHASONE 30 MG/5 ML MDV 12 MG INJ (11:17)
[2018-10-09] MEDS: BUPIVACAINE 0.25% (PF) VIAL 2 ML INJ (11:36)
--- NOTE | 2018-10-09 11:57 | PC.NURSE ---
assisting pt off table and tranporting to post proc area in stable condition
--- NOTE | 2018-10-09 12:04 | P.PCN_ITS ---
Procedures Date/Time Date of procedure: 10/09/18 Time of procedure: 12:01 General Procedure description: PREOP DIAGNOSIS 1. RECALCITRANT FACET ARTHROPATHY, POST OP DIAGNOSIS 1. RECALCITRANT FACET ARTHROPATHY PROCEDURES 1. BILATERAL L4 AND L5 MEDIAL BRANCH RADIOFREQUENCY NEUROTOMY AND S1 DORSAL RAMUS BRANCH RADIOFREQUENCY NEUROTOMY, PHYSICIAN: Bry Marie DO INDICATIONS: Chuckie is referred by Dr. Proctor for treatment of facet arthropathy. DESCRIPTION OF PROCEDURE Bilateral L4 and L5 medial branch radiofrequency neurotomy and bilateral S1 dorsal ramus radiofrequency neurotomy under fluoroscopy with conscious sedation. The patient is well known to this clinic having undergone previous facet injections with good but temporary relief. The patient has experienced appropriate, concordant relief with previous facet and median branch blocks but the patient's pain has been recalcitrant to further conservative measures. Therefore, based upon the patient's relief and persistent symptoms, the patient is considered an appropriate candidate for facet rhizotomy. All of the patient's questions regarding the risks versus benefits of the procedure, including, but not limited to, bleeding, infection, temporary as well as lasting nerve injury, paralysis, stroke, and , as well treatment alternatives were answered to satisfaction. After obtaining informed consent, denial of pertinent drug allergies, as well as being made aware of the potential risks of bleeding, infection, spinal cord trauma, paralysis, temporary and permanent nerve damage, seizure, stroke, and possible , the patient was brought to the fluoroscopy suite and positioned prone on the fluoroscopy table. The lumbar region was prepped with Betadine and covered with a fenestrated drape in the usual sterile fashion. Appropriate monitors applied including pulse oximeter, pulse, and blood pressure for regular monitoring throughout the procedure. After review of previous anaesthesic history and IV conscious sedation the patient was deemed safe to proceed with todays procedure with IV conscious sedation as ASA class II designation. Safety time-out was performed to confirm patient ID, procedure to be performed and site of procedure. IV sedation was accomplished with a combination of 3mg of Versed administered by the RN after DO order, titrated to patient comfort during the course of the procedure while the patient remained responsive to all verbal commands. After local infiltration using 1% lidocaine, under fluoroscopic guidance, a 10- cm RF insulated needle with a 10-mm active tip was positioned parallel to the junction of the right sacral ala and the superior articulating process where the S1 dorsal ramus resides. Needle placement was confirmed with sensory stimulation at 50 Hz, with motor stimulation of .5v on the right which produced local stimulation without radicular component. The stimulation was then increased to 1.5v with, once again, only local multifidus stimulation without radicular component. This was then followed by two discreet lesions performed at 80 degrees Celsius for 90 seconds each. The needle was then removed and the identical procedure was performed along the length of the right L5 medial branch with motor stimulation at .7v on the right. The identical procedure was once again performed along the length of the right L4 medial branch with motor stimulation of .5v on the right. The identical procedure was repeated on the left. The patient tolerated the procedure well without signs or symptoms of complications prior to transfer to the recovery area continued monitoring without incident. The patient was then transferred to the recovery area where they were observed for an appropriate period of time after the injection. The patient reported a VAS score of 9 prior to the procedure and a post-procedure VAS of 0. Total Fluoroscopy Time: 22.7 seconds Total Conscious Sedation Time: 34min POST OP INSTRUCTIONS The patient was provided a Pain Log to continue to record the patient's response to the target-specific procedure prior to the patient's follow-up visit with the referring physician. Additionally, specific post-injection care instructions and a contact number to our office were provided if concerns arise regarding possible complications associated with the procedure are suspected. Bry Marie DO Complications: none
--- NOTE | 2018-10-10 15:59 | PC.NURSE ---
Follow up call made for post RFA, pt reports he didn't sleep very well but his pain is very low and he is doing well. Pt denies any complaints.
== END 2018-10-09 12:32 ==
LOC: RAD 10:04
PROVIDERS: PCP Internal Medicine; Visit Provider Physical Medicine & Rehabilitation
DX: M47.816 Spondylosis without myelopathy or radiculopathy, lumbar region (principal); M47.817 Spondylosis without myelopathy or radiculopathy, lumbosacral region; G62.9 Polyneuropathy, unspecified
CPT/HCPCS: 64635; 64636; 99152; 99153; J0702; J2250; J3010

== ENCOUNTER 2018-10-14 10:11 | Emergency (ER) | payer MEDICARE, OTHER, SELFPAY ==
[2018-10-14] VITALS (8 sets, daily range): BP systolic 113–160; BP diastolic 64–89; PULSE 62–97; RESP 14–24; TEMP 36.3–36.4; O2SAT 92–99
--- NOTE | 2018-10-14 10:27 | DI.RAD.S_ITS ---
PROCEDURE: XR RIBS RT MIN 3V W CXR 1V INDICATIONS: Fall into Glass table on Plavix TECHNIQUE: 3 views of the right ribs were acquired, along with a single view chest. COMPARISON: None. FINDINGS: Surgical changes and devices: None. Bones and chest wall: Moderately displaced right lateral eighth rib fracture. Mild displaced right anterolateral fifth rib fracture. Moderately displaced right anterolateral sixth and seventh rib fractures. No suspicious bony lesions. Overlying soft tissues appear unremarkable. Lungs and pleura: No pleural effusions or pneumothorax. Lungs appear clear. Mediastinum: Mediastinal contours appear normal. Heart size is normal. IMPRESSION: Right rib fractures. Dictated by: Deedee Mark M.D. on 10/14/2018 at 10:43 Approved by: Deedee Mark M.D. on 10/14/2018 at 10:44
--- NOTE | 2018-10-14 11:05 | PC.NURSE ---
bruising on right side of rib cage.
--- NOTE | 2018-10-14 11:33 | ED.FALL ---
HPI - Fall General Chief Complaint: Fall Stated Complaint: FALL Time Seen by Provider: 10/14/18 10:35 Source: patient and family Mode of arrival: ambulatory Limitations: no limitations History of Present Illness HPI Narrative: Patient complains of right posterior rib pain after a fall 2 days ago. He states he was stepping backwards down off a ladder when he missed the bottom rung and stumbled back against a TV entertainment stand. Patient states he struck his posterior right ribs and felt instant pain. He denies shortness of breath but states that it hurts to take a deep breath. He stated it especially hurts to cough. He denies any fevers or chills. He was not injured in any other way. No back pain. No abdominal pain no nausea or vomiting. No chest pain or shortness of breath. Patient states he had been feeling fine before the fall. He states that he did not have any lightheadedness, dizziness, chest pain, or shortness of breath at the time to indicate anything else going on besides a simple mechanical stumble. Patient denies prior history of injury to his ribs. Related Data Home Medications Medication Instructions Recorded Confirmed clopidogrel 75 mg tablet 75 mg PO DAILY 03/02/18 10/17/18 losartan 100 mg tablet 100 mg PO DAILY 03/02/18 10/17/18 qcgjyzug-dla-dajpa acid 300 1 tab PO DAILY 03/02/18 10/17/18 mcg-lycopene 600 mcg-lutein 300 mcg tablet timolol maleate 0.5 % eye drops 1 drp EYE-BOTH BID ml 05/04/18 10/17/18 trazodone 50 mg PO BEDTIME 10/17/18 10/17/18 Previous Rx's Medication Instructions Recorded gabapentin 400 mg capsule 400 mg PO TID #90 cap 07/27/18 simvastatin 20 mg tablet 20 mg PO QPM #90 tab 10/08/18 hydrocodone-acetaminophen 2 tab PO Q4H PRN #20 tab 10/14/18 ondansetron 4 mg PO Q6-8H PRN #20 tab 10/14/18 Allergies Allergy/AdvReac Type Severity Reaction Status Date / Time alprazolam [From Xanax] Allergy Severe Passed Out Verified 10/17/18 15:21 oxycodone Allergy Severe Passed Out Verified 10/17/18 15:21 Review of Systems Constitutional Denies chills, Denies fever(s), Denies lethargy and Denies weakness Eyes Denies change in vision, Denies eye discharge, Denies irritation and Denies loss of vision ENT Ears, Nose, Mouth, and Throat: Denies change in voice, Denies neck pain and Denies sore throat Cardiovascular Denies chest pain, Denies irregular heart rhythm, Denies lightheadedness, Denies palpitations, Denies dyspnea, Denies dyspnea on exertion and Denies orthopnea Respiratory Denies cough, Denies dyspnea, Denies dyspnea on exertion and Denies wheezing Comments: Pain with deep breath Gastrointestinal Gastrointestinal: Denies abdominal pain, Denies change in bowel habits, Denies diarrhea, Denies nausea and Denies vomiting Genitourinary Denies hematuria, Denies flank pain, Denies urinary incontinence and Denies urinary urgency Musculoskeletal Denies neck pain Comments: Posterior rib pain, right Integumentary/Breasts Denies pruritus, Denies erythema, Denies rash and Denies wounds Neurologic Denies confusion, Denies loss of vision and Denies weakness Psychiatric Denies anxiety, Denies confusion, Denies depression, Denies homicidal ideation and Denies suicidal ideation Endocrine Denies palpitations Hematologic/Lymphatic Denies easy bruising Allergic/Immunologic Denies wheezing Exam Initial Vital Signs Initial Vital Signs: Vital Signs Temperature 97.4 F L 10/14/18 10:21 Pulse Rate 97 H 10/14/18 10:21 Respiratory Rate 24 10/14/18 10:21 Blood Pressure 133/89 10/14/18 10:21 Pulse Oximetry 99 10/14/18 10:21 Const General: cooperative and well developed Nutritional Appearance: well nourished Orientation: alert, awake, oriented x3 and not confused [facility] Head: normocephalic and atraumatic Ears: external ears normal and TM's normal bilaterally Nose: external nose normal and No nasal discharge Face and sinus: sinuses nontender, face symmetric, no sinus tenderness and No dry mucous membranes Mouth: oral mucosae normal and moist mucous membranes Teeth and gingiva: dentition normal Throat: tonsils normal and uvula midline Eyes General: appearance normal, both eyes and all related structures Eyelids: eyelids normal Conjunctivae: conjunctivae normal Sclera: sclerae normal Pupils: PERRL EOM: EOM intact bilaterally Neck Neck: normal visual inspection, trachea midline, No lymphadenopathy, No midline deformity and No JVD Lymphatic: No lymphedema Chest Chest: normal inspection of the chest Resp Effort & Inspection: normal respiratory effort, able to speak in complete sentences, no respiratory distress and no use of accessory muscles Auscultation: clear to auscultation bilaterally, no rales, no rhonchi and no wheezes Cardio Rate: regular rate Rhythm: regular rhythm Heart Sounds: no click, no gallops, no murmurs and no rubs Pulses: normal peripheral pulses GI Inspection: non-distended Palpation: soft, no hepatosplenomegaly, No guarding, No pulsatile mass and No tender Auscultation: normal bowel sounds Back/Spine/Pelvis Back: No CVA tenderness Cervical Spine: cervical ROM normal and No pain with cervical ROM Thoracic/Lumbar Spine: thoracic and lumbar spine normal to inspection Skin General: no rashes or lesions noted, No jaundice and No petechiae Neuro General: alert, oriented x3, gait normal and no focal motor deficits Speech: speech normal Extrem General: full ROM, no clubbing, cyanosis or edema, no pedal edema and no calf tenderness Psych Appearance: well kempt Mental Status: mental status grossly normal Attitude: cooperative Thought Content: normal and suicidality Judgment: judgment good [facility] Medical History Lumbar post-laminectomy syndrome (Chronic) Cervical stenosis of spinal canal (Chronic) Lumbosacral spondylosis (Chronic) Hypertension (Chronic ~2016) Hyperlipidemia (Chronic) CAD (coronary artery disease) (Chronic ~2007) Spinal stenosis (Chronic) Osteoarthritis (Chronic) Chronic back pain (Chronic) Vertigo (Chronic ~2013) Sick sinus syndrome (Chronic) Peripheral neuropathy (Chronic ~1979) H/O: stroke (Inactive 04/10/16) History of cardiac monitoring (Acute) Vision disorder (Chronic) Measles (Resolved) Mumps (Resolved) Squamous cell skin cancer (Resolved ~2015) Colon polyps (Inactive ~2010) Skin cancer (Inactive) Family History Father No problems noted. Mother No problems noted. Brother Diabetes mellitus Hypertension Hyperlipidemia Grandfather No problems noted. 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 Mother No problems noted. Brother Diabetes mellitus Hypertension Hyperlipidemia Grandfather No problems noted. 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 Given the patient's anticoagulated status, I was concerned for the potential for organ injury involving the liver or kidney. As such, I did feel the patient should have a CT scan of the abdomen and pelvis. Labs were initially obtained, and patient was sent for this study. commercial hvac technician noted some fluid in the patient's right chest, and so a CT scan of the thorax was performed along with that a CT of the abdomen and pelvis. Radiologist read this as a small pleural effusion, and noted the same rib fractures, with 1 fracture per rib, but otherwise no other findings. The patient had been found to be quite nauseated after receiving Dilaudid and the IV contrast, and was treated symptomatically for this. He was observed in the emergency department until feeling well enough to make the trip home with his . We have discussed home management of the symptoms; patient has been given an incentive spirometer in the emergency department, which he has been using. He has also been given a prescription for Vicodin and for Zofran. We have discussed the usual indications for return. Orders Ordered: Discontinued Medications Hydromorphone HCl (Dilaudid) 1 mg IV NOW ONE Stop: 10/14/18 11:33 Last Admin: 10/14/18 12:02 Dose: 1 mg Metoclopramide HCl (Reglan) 10 mg IV NOW ONE Stop: 10/14/18 15:06 Last Admin: 10/14/18 15:05 Dose: 10 mg Ondansetron HCl (Zofran) 4 mg IV NOW ONE Stop: 10/14/18 14:17 Last Admin: 10/14/18 14:17 Dose: 4 mg Prochlorperazine (Compazine) 10 mg IV NOW ONE Stop: 10/14/18 16:42 Last Admin: 10/14/18 16:47 Dose: 10 mg Vital Signs - 8 hr 10/14/18 10:21 Temperature 97.4 F L Pulse Rate 97 H Respiratory Rate 24 Blood Pressure 133/89 Pulse Oximetry 99 MDM - Fall Medical Records Attestation: I reviewed the patient's medical records. Lab Data Attestation: I reviewed the patient's lab results. Result diagrams: 10/14/18 11:57 10/14/18 11:57 Lab Results 10/14/18 10/14/18 10/14/18 Range/Units 11:57 11:57 11:57 WBC 10.8 (4.5-11.0) X10^3/uL RBC 4.41 L (4.5-5.9) X10^6/uL Hgb 14.5 (13.5-17.5) g/dL Hct 43.4 (41-53) % MCV 98.3 (80-100) fL MCH 32.9 (26-34) PG MCHC 33.5 (30-36) % RDW 13.8 (11.6-14.8) % Plt Count 199 (150-400) X10^3/uL Neut % (Auto) 73.5 (50-75) % Lymph % (Auto) 14.5 L (25-40) % [place] % (Auto) 10.1 (3-14) % Eos % (Auto) 1.6 L (2-4) % Baso % (Auto) 0.3 (0-2) % Neut # (Auto) 7900 H (2191-8111) /uL Lymph # (Auto) 1600 (6878-5162) /uL [place] # (Auto) 1100 H (0-900) /uL Eos # (Auto) 200 (0-450) /uL Baso # (Auto) 0 (0-100) /uL PT 11.4 (10.1-12.7) SECONDS INR 1.0 (0.9-1.3) Sodium 139 (137-145) mmol/L Potassium 4.5 (3.4-5.1) mmol/L Chloride 101 (98-107) mmol/L Carbon Dioxide 29 (22-32) mmol/L BUN 27 H (9-20) mg/dL Creatinine 0.70 (0.66-1.25) mg/dL Estimated GFR > 60.0 (>60) mL/min BUN/Creatinine Ratio 38.6 H (6-22) Glucose 87 (80-110) mg/dL Calcium 9.2 (8.4-10.2) mg/dL Total Bilirubin 0.8 (0.2-1.3) mg/dL AST 37 (17-59) IU/L ALT 56 (21-72) IU/L Alkaline Phosphatase 61 (38-126) U/L Total Protein 7.5 (6.3-8.2) g/dL Albumin 4.2 (3.5-5.0) g/dL Globulin 3.3 (1.7-4.1) g/dL Albumin/Globulin Ratio 1.3 (1.0-2.8) Imaging Data CT scan - chest: Radiologist's impression: PROCEDURE: CT CHEST WO CON INDICATIONS: trauma TECHNIQUE: Noncontrast 5 mm thick sections acquired from the pulmonary apices to the posterior costophrenic angles. 7 mm thick coronal and sagittal MIP reformats were then acquired. For radiation dose reduction, the following was used: automated exposure control, adjustment of mA and/or kV according to patient size. COMPARISON: [facility], CR, XR RIBS RT MIN 3V W CXR 1V, 10/14/2018, 10:25. FINDINGS: Image quality: Excellent. Lungs and pleura: Mild right basilar atelectasis. No pneumothorax. Small right pleural effusion. Central and peripheral airways are patent and normal in caliber. Mediastinum: Heart size is normal. There is calcification of the coronary vasculature. No pericardial effusion. No mediastinal adenopathy by size criteria. Thoracic aorta and central pulmonary arteries are normal in size. Esophagus is normal in caliber. Small hiatal hernia. Bones and chest wall: Mildly displaced fractures of the right anterolateral fifth, sixth, and seventh ribs. Mildly displaced right lateral eighth rib fracture. Mild displaced right posterior ninth rib fracture. Chronic healed left posterior second, third, and fourth rib fractures. No suspicious bony lesions. No vertebral body compression fractures. No axillary or supraclavicular adenopathy by size criteria. Thyroid gland is within normal limits. Abdomen: Visualized upper abdominal solid organs and bowel loops appear normal in the absence of contrast. IMPRESSION: 1. Right rib fractures. 2. Small right pleural effusion. 3. Small hiatal hernia. 4. Coronary artery disease. Dictated by: Deedee Mark M.D. on 10/14/2018 at 13:39 Approved by: Deedee Mark M.D. on 10/14/2018 at 13:41 CT scan - abdomen: Radiologist's impression: PROCEDURE: CT ABDOMEN PELVIS W CON INDICATIONS: trauma R side, on anticoagulation TECHNIQUE: After the administration of intravenous contrast, 5 mm thick sections acquired from the diaphragm to the symphysis. 5 mm coronal and sagittal reformats were acquired. For radiation dose reduction, the following was used: automated exposure control, adjustment of mA and/or kV according to patient size. COMPARISON: [facility], CR, XR RIBS RT MIN 3V W CXR 1V, 10/14/2018, 10:25. [facility], CT, CT CHEST WO CON, 10/14/2018, 13:03. FINDINGS: Image quality: Excellent. ABDOMEN: Lung bases: A small right pleural effusion is present. There is mild right basilar atelectasis. Heart size is normal. Solid organs: Liver is normal in size and enhancement. Gallbladder is within normal limits. Biliary system is non dilated. Pancreas enhances normally. Spleen is normal in size and enhancement. No adrenal nodules. Bilateral renal cysts are present. Kidneys demonstrate otherwise normal size and enhancement, without hydronephrosis. Peritoneum and bowel: Bowel loops demonstrate normal wall thickness and caliber. No free fluid or air. Normal appendix. Nodes and vessels: No retroperitoneal or mesenteric adenopathy by size criteria. Aorta and inferior vena cava are normal in size. Miscellaneous: No ventral hernias. PELVIS: Genitourinary: Bladder wall thickness is normal. Miscellaneous: No inguinal hernias or adenopathy. Bones: Mildly displaced right posterior ninth rib fracture. Mildly displaced fractures of the right anterolateral fifth, sixth, and seventh ribs. Mildly displaced right lateral eighth rib fracture. No suspicious bony lesions. No vertebral body compression fractures. IMPRESSION: 1. Right-sided rib fractures. 2. No evidence of injury to the soft tissues of the abdomen, nor pelvis. Dictated by: Deedee Mark M.D. on 10/14/2018 at 13:36 Approved by: Deedee Mark M.D. on 10/14/2018 at 13:38 Rib x-ray: Radiologist's impression: [place] [address] XRay Report Signed Patient: Chuckie Ryder [facility]#: [id number] : 5Acct:[id number] Age/Sex: 83 / MDate of Service: 10/14/18 Loc: ED Accession Number: [id number] Procedure: XR ribs RT min 3V w CXR1V Ordering Provider: Angle Mendoza MD PROCEDURE: XR RIBS RT MIN 3V W CXR 1V INDICATIONS: Fall into Glass table on Plavix TECHNIQUE: 3 views of the right ribs were acquired, along with a single view chest. COMPARISON: None. FINDINGS: Surgical changes and devices: None. Bones and chest wall: Moderately displaced right lateral eighth rib fracture. Mild displaced right anterolateral fifth rib fracture. Moderately displaced right anterolateral sixth and seventh rib fractures. No suspicious bony lesions. Overlying soft tissues appear unremarkable. Lungs and pleura: No pleural effusions or pneumothorax. Lungs appear clear. Mediastinum: Mediastinal contours appear normal. Heart size is normal. IMPRESSION: Right rib fractures. Dictated by: Deedee Mark M.D. on 10/14/2018 at 10:43 Approved by: Deedee Mark M.D. on 10/14/2018 at 10:44 Discharge Plan Departure Patient Disposition: Home Clinical Impression: Fracture, ribs Qualifiers: Encounter type: initial encounter Rib fracture type: multiple ribs Fracture type: closed Laterality: right Qualified Code(s): S22.41XA - Multiple fractures of ribs, right side, initial encounter for closed fracture Discharge Date/Time: 10/14/18 18:41 Interventions: ED Discharge Assessment Last Done: 10/14/18 18:41 Instructions: DI for Rib Fracture Activity Restrictions/Additional Instructions: Your chest x-ray and CT scan showed fractures of several ribs on the right. However, there is no evidence of any other organ damage, either to your lung, or to your right kidney or liver. You have developed some nausea from the pain medicine that you were given, as well as possibly from the IV contrast. This is not an allergy, and does not preclude you from having these medicines in the future, especially if necessary; however, it may be solis for you to have nausea medicine if you do require these medications in the future. You will be given a prescription for pain and nausea medicine for home, to used as needed. You should also exercise your lungs with the incentive spirometer that you have been given. This is very important to prevent pneumonia while your ribs are healing. You should blow 10 times in these incentive spirometer every hour that your awake. Try to get the ball as high as you can to encourage your lungs to open up as much as possible. If you develop a worsening cough, shortness of breath, and fever, you should be re-evaluated immediately. You may use a chest binder to help support your chest wall until the ribs are feeling better. Prescriptions: New hydrocodone-acetaminophen 5-325 mg tablet 2 tab PO Q4H PRN (Reason: pain) Qty: 20 RF: 0 ondansetron 4 mg tablet,disintegrating 4 mg PO Q6-8H PRN (Reason: nausea and vomiting) Qty: 20 RF: 0 No Action gabapentin 400 mg capsule 400 mg PO TID Qty: 90 RF: 2 simvastatin 20 mg tablet 20 mg PO QPM Qty: 90 RF: 3 clopidogrel 75 mg tablet 75 mg PO DAILY RF: 0 losartan 100 mg tablet 100 mg PO DAILY RF: 0 sdhsndfx-gll-SF-lycopen-lutein [Centrum Silver Men] 300-600-300 mcg tablet 1 tab PO DAILY RF: 0 trazodone 50 mg tablet 50 mg PO BEDTIME RF: 0 timolol maleate 0.5 % drops 1 drp EYE-BOTH BID RF: 0 Referrals: Dalton Proctor MD [Primary Care Provider] -
--- NOTE | 2018-10-14 11:38 | ED_ITS ---
HPI - Fall General Chief Complaint: Fall Stated Complaint: FALL Time Seen by Provider: 10/14/18 10:35 Source: patient and family Mode of arrival: ambulatory Limitations: no limitations History of Present Illness HPI Narrative: Patient complains of right posterior rib pain after a fall 2 days ago. He states he was stepping backwards down off a ladder when he missed the bottom rung and stumbled back against a TV entertainment stand. Patient states he struck his posterior right ribs and felt instant pain. He denies shortness of breath but states that it hurts to take a deep breath. He stated it especially hurts to cough. He denies any fevers or chills. He was not injured in any other way. No back pain. No abdominal pain no nausea or vomiting. No chest pain or shortness of breath. Patient states he had been feeling fine before the fall. He states that he did not have any lightheadedness, dizziness, chest pain, or shortness of breath at the time to indicate anything else going on besides a simple mechanical stumble. Patient denies prior history of injury to his ribs. Related Data Home Medications Medication Instructions Recorded Confirmed clopidogrel 75 mg tablet 75 mg PO DAILY 03/02/18 10/17/18 losartan 100 mg tablet 100 mg PO DAILY 03/02/18 10/17/18 [id number]-fem-ffpmr acid 300 1 tab PO DAILY 03/02/18 10/17/18 mcg-lycopene 600 mcg-lutein 300 mcg tablet timolol maleate 0.5 % eye drops 1 drp EYE-BOTH BID ml 05/04/18 10/17/18 trazodone 50 mg PO BEDTIME 10/17/18 10/17/18 Previous Rx's Medication Instructions Recorded gabapentin 400 mg capsule 400 mg PO TID #90 cap 07/27/18 simvastatin 20 mg tablet 20 mg PO QPM #90 tab 10/08/18 hydrocodone-acetaminophen 2 tab PO Q4H PRN #20 tab 10/14/18 ondansetron 4 mg PO Q6-8H PRN #20 tab 10/14/18 Allergies Allergy/AdvReac Type Severity Reaction Status Date / Time alprazolam [From Xanax] Allergy Severe Passed Out Verified 10/17/18 15:21 oxycodone Allergy Severe Passed Out Verified 10/17/18 15:21 Review of Systems Constitutional Denies chills, Denies fever(s), Denies lethargy and Denies weakness Eyes Denies change in vision, Denies eye discharge, Denies irritation and Denies loss of vision ENT Ears, Nose, Mouth, and Throat: Denies change in voice, Denies neck pain and Denies sore throat Cardiovascular Denies chest pain, Denies irregular heart rhythm, Denies lightheadedness, Denies palpitations, Denies dyspnea, Denies dyspnea on exertion and Denies orthopnea Respiratory Denies cough, Denies dyspnea, Denies dyspnea on exertion and Denies wheezing Comments: Pain with deep breath Gastrointestinal Gastrointestinal: Denies abdominal pain, Denies change in bowel habits, Denies diarrhea, Denies nausea and Denies vomiting Genitourinary Denies hematuria, Denies flank pain, Denies urinary incontinence and Denies urinary urgency Musculoskeletal Denies neck pain Comments: Posterior rib pain, right Integumentary/Breasts Denies pruritus, Denies erythema, Denies rash and Denies wounds Neurologic Denies confusion, Denies loss of vision and Denies weakness Psychiatric Denies anxiety, Denies confusion, Denies depression, Denies homicidal ideation and Denies suicidal ideation Endocrine Denies palpitations Hematologic/Lymphatic Denies easy bruising Allergic/Immunologic Denies wheezing Exam Initial Vital Signs Initial Vital Signs: Vital Signs Temperature 97.4 F L 10/14/18 10:21 Pulse Rate 97 H 10/14/18 10:21 Respiratory Rate 24 10/14/18 10:21 Blood Pressure 133/89 10/14/18 10:21 Pulse Oximetry 99 10/14/18 10:21 Const General: cooperative and well developed Nutritional Appearance: well nourished Orientation: alert, awake, oriented x3 and not confused [facility] Head: normocephalic and atraumatic Ears: external ears normal and TM's normal bilaterally Nose: external nose normal and No nasal discharge Face and sinus: sinuses nontender, face symmetric, no sinus tenderness and No dry mucous membranes Mouth: oral mucosae normal and moist mucous membranes Teeth and gingiva: dentition normal Throat: tonsils normal and uvula midline Eyes General: appearance normal, both eyes and all related structures Eyelids: eyelids normal Conjunctivae: conjunctivae normal Sclera: sclerae normal Pupils: PERRL EOM: EOM intact bilaterally Neck Neck: normal visual inspection, trachea midline, No lymphadenopathy, No midline deformity and No JVD Lymphatic: No lymphedema Chest Chest: normal inspection of the chest Resp Effort & Inspection: normal respiratory effort, able to speak in complete sentences, no respiratory distress and no use of accessory muscles Auscultation: clear to auscultation bilaterally, no rales, no rhonchi and no wheezes Cardio Rate: regular rate Rhythm: regular rhythm Heart Sounds: no click, no gallops, no murmurs and no rubs Pulses: normal peripheral pulses GI Inspection: non-distended Palpation: soft, no hepatosplenomegaly, No guarding, No pulsatile mass and No tender Auscultation: normal bowel sounds Back/Spine/Pelvis Back: No CVA tenderness Cervical Spine: cervical ROM normal and No pain with cervical ROM Thoracic/Lumbar Spine: thoracic and lumbar spine normal to inspection Skin General: no rashes or lesions noted, No jaundice and No petechiae Neuro General: alert, oriented x3, gait normal and no focal motor deficits Speech: speech normal Extrem General: full ROM, no clubbing, cyanosis or edema, no pedal edema and no calf tenderness Psych Appearance: well kempt Mental Status: mental status grossly normal Attitude: cooperative Thought Content: normal and suicidality Judgment: judgment good [facility] Medical History Lumbar post-laminectomy syndrome (Chronic) Cervical stenosis of spinal canal (Chronic) Lumbosacral spondylosis (Chronic) Hypertension (Chronic ~2016) Hyperlipidemia (Chronic) CAD (coronary artery disease) (Chronic ~2007) Spinal stenosis (Chronic) Osteoarthritis (Chronic) Chronic back pain (Chronic) Vertigo (Chronic ~2013) Sick sinus syndrome (Chronic) Peripheral neuropathy (Chronic ~1979) H/O: stroke (Inactive 04/10/16) History of cardiac monitoring (Acute) Vision disorder (Chronic) Measles (Resolved) Mumps (Resolved) Squamous cell skin cancer (Resolved ~2015) Colon polyps (Inactive ~2010) Skin cancer (Inactive) Family History Father No problems noted. Mother No problems noted. Brother Diabetes mellitus Hypertension Hyperlipidemia Grandfather No problems noted. 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 Mother No problems noted. Brother Diabetes mellitus Hypertension Hyperlipidemia Grandfather No problems noted. 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 Given the patient's anticoagulated status, I was concerned for the potential for organ injury involving the liver or kidney. As such, I did feel the patient should have a CT scan of the abdomen and pelvis. Labs were initially obtained, and patient was sent for this study. electronic test technician noted some fluid in the patient's right chest, and so a CT scan of the thorax was performed along with that a CT of the abdomen and pelvis. Radiologist read this as a small pleural effusion, and noted the same rib fractures, with 1 fracture per rib, but otherwise no other findings. The patient had been found to be quite nauseated after receiving Dilaudid and the IV contrast, and was treated symptomatically for this. He was observed in the emergency department until feeling well enough to make the trip home with his . We have discussed home management of the symptoms; [facility]. He has also been given a prescription for Vicodin and for Zofran. We have discussed the usual indications for return. Orders Ordered: Discontinued Medications Hydromorphone HCl (Dilaudid) 1 mg IV NOW ONE Stop: 10/14/18 11:33 Last Admin: 10/14/18 12:02 Dose: 1 mg Metoclopramide HCl (Reglan) 10 mg IV NOW ONE Stop: 10/14/18 15:06 Last Admin: 10/14/18 15:05 Dose: 10 mg Ondansetron HCl (Zofran) 4 mg IV NOW ONE Stop: 10/14/18 14:17 Last Admin: 10/14/18 14:17 Dose: 4 mg Prochlorperazine (Compazine) 10 mg IV NOW ONE Stop: 10/14/18 16:42 Last Admin: 10/14/18 16:47 Dose: 10 mg Vital Signs - 8 hr 10/14/18 10:21 Temperature 97.4 F L Pulse Rate 97 H Respiratory Rate 24 Blood Pressure 133/89 Pulse Oximetry 99 MDM - Fall Medical Records Attestation: I reviewed the patient's medical records. Lab Data Attestation: I reviewed the patient's lab results. Result diagrams: 10/14/18 11:57 10/14/18 11:57 Lab Results 10/14/18 10/14/18 10/14/18 Range/Units 11:57 11:57 11:57 WBC 10.8 (4.5-11.0) X10^3/uL RBC 4.41 L (4.5-5.9) X10^6/uL Hgb 14.5 (13.5-17.5) g/dL Hct 43.4 (41-53) % MCV 98.3 (80-100) fL MCH 32.9 (26-34) PG MCHC 33.5 (30-36) % RDW 13.8 (11.6-14.8) % Plt Count 199 (150-400) X10^3/uL Neut % (Auto) 73.5 (50-75) % Lymph % (Auto) 14.5 L (25-40) % Luce % (Auto) 10.1 (3-14) % Eos % (Auto) 1.6 L (2-4) % Baso % (Auto) 0.3 (0-2) % Neut # (Auto) 7900 H (0510-4774) /uL Lymph # (Auto) 1600 (1365-4162) /uL Luce # (Auto) 1100 H (0-900) /uL Eos # (Auto) 200 (0-450) /uL Baso # (Auto) 0 (0-100) /uL PT 11.4 (10.1-12.7) SECONDS INR 1.0 (0.9-1.3) Sodium 139 (137-145) mmol/L Potassium 4.5 (3.4-5.1) mmol/L Chloride 101 (98-107) mmol/L Carbon Dioxide 29 (22-32) mmol/L BUN 27 H (9-20) mg/dL Creatinine 0.70 (0.66-1.25) mg/dL Estimated GFR > 60.0 (>60) mL/min BUN/Creatinine Ratio 38.6 H (6-22) Glucose 87 (80-110) mg/dL Calcium 9.2 (8.4-10.2) mg/dL Total Bilirubin 0.8 (0.2-1.3) mg/dL AST 37 (17-59) IU/L ALT 56 (21-72) IU/L Alkaline Phosphatase 61 (38-126) U/L Total Protein 7.5 (6.3-8.2) g/dL Albumin 4.2 (3.5-5.0) g/dL Globulin 3.3 (1.7-4.1) g/dL Albumin/Globulin Ratio 1.3 (1.0-2.8) Imaging Data CT scan - chest: Radiologist's impression: PROCEDURE: CT CHEST WO CON INDICATIONS: trauma TECHNIQUE: Noncontrast 5 mm thick sections acquired from the pulmonary apices to the posterior costophrenic angles. 7 mm thick coronal and sagittal MIP reformats were then acquired. For radiation dose reduction, the following was used: automated exposure control, adjustment of mA and/or kV according to patient size. COMPARISON: [facility], CR, XR RIBS RT MIN 3V W CXR 1V, 10/14/2018, 10:25. FINDINGS: Image quality: Excellent. Lungs and pleura: Mild right basilar atelectasis. No pneumothorax. Small right pleural effusion. Central and peripheral airways are patent and normal in caliber. Mediastinum: Heart size is normal. There is calcification of the coronary vasculature. No pericardial effusion. No mediastinal adenopathy by size criteria. Thoracic aorta and central pulmonary arteries are normal in size. Esophagus is normal in caliber. Small hiatal hernia. Bones and chest wall: Mildly displaced fractures of the right anterolateral fifth, sixth, and seventh ribs. Mildly displaced right lateral eighth rib fracture. Mild displaced right posterior ninth rib fracture. Chronic healed left posterior second, third, and fourth rib fractures. No suspicious bony lesions. No vertebral body compression fractures. No axillary or supraclavicular adenopathy by size criteria. Thyroid gland is within normal limits. Abdomen: Visualized upper abdominal solid organs and bowel loops appear normal in the absence of contrast. IMPRESSION: 1. Right rib fractures. 2. Small right pleural effusion. 3. Small hiatal hernia. 4. Coronary artery disease. Dictated by: Deedee Mark M.D. on 10/14/2018 at 13:39 Approved by: Deedee Mark M.D. on 10/14/2018 at 13:41 CT scan - abdomen: Radiologist's impression: PROCEDURE: CT ABDOMEN PELVIS W CON INDICATIONS: trauma R side, on anticoagulation TECHNIQUE: After the administration of intravenous contrast, 5 mm thick sections acquired from the diaphragm to the symphysis. 5 mm coronal and sagittal reformats were acquired. For radiation dose reduction, the following was used: automated exposure control, adjustment of mA and/or kV according to patient size. COMPARISON: [facility], CR, XR RIBS RT MIN 3V W CXR 1V, 10/14/2018, 10:25. [facility], CT, CT CHEST WO CON, 10/14/2018, 13:03. FINDINGS: Image quality: Excellent. ABDOMEN: Lung bases: A small right pleural effusion is present. There is mild right basilar atelectasis. Heart size is normal. Solid organs: Liver is normal in size and enhancement. Gallbladder is within normal limits. Biliary system is non dilated. Pancreas enhances normally. Spleen is normal in size and enhancement. No adrenal nodules. Bilateral renal cysts are present. Kidneys demonstrate otherwise normal size and enhancement, without hydronephrosis. Peritoneum and bowel: Bowel loops demonstrate normal wall thickness and caliber. No free fluid or air. Normal appendix. Nodes and vessels: No retroperitoneal or mesenteric adenopathy by size criteria. Aorta and inferior vena cava are normal in size. Miscellaneous: No ventral hernias. PELVIS: Genitourinary: Bladder wall thickness is normal. Miscellaneous: No inguinal hernias or adenopathy. Bones: Mildly displaced right posterior ninth rib fracture. Mildly displaced fractures of the right anterolateral fifth, sixth, and seventh ribs. Mildly displaced right lateral eighth rib fracture. No suspicious bony lesions. No vertebral body compression fractures. IMPRESSION: 1. Right-sided rib fractures. 2. No evidence of injury to the soft tissues of the abdomen, nor pelvis. Dictated by: Deedee Mark M.D. on 10/14/2018 at 13:36 Approved by: Deedee Mark M.D. on 10/14/2018 at 13:38 Rib x-ray: Radiologist's impression: [place] [address] XRay Report Signed Patient: Chuckie Ryder [facility]#: [id number] : 5Acct:[id number] Age/Sex: 83 / MDate of Service: 10/14/18 Loc: ED Accession Number: [id number] Procedure: XR ribs RT min 3V w CXR1V Ordering Provider: Angle Mendoza MD PROCEDURE: XR RIBS RT MIN 3V W CXR 1V INDICATIONS: Fall into Glass table on Plavix TECHNIQUE: 3 views of the right ribs were acquired, along with a single view c hest. COMPARISON: None. FINDINGS: Surgical changes and devices: None. Bones and chest wall: Moderately displaced right lateral eighth rib fracture. Mild displaced right anterolateral fifth rib fracture. Moderately displaced right anterolateral sixth and seventh rib fractures. No suspicious bony lesions. Overlying soft tissues appear unremarkable. Lungs and pleura: No pleural effusions or pneumothorax. Lungs appear clear. Mediastinum: Mediastinal contours appear normal. Heart size is normal. IMPRESSION: Right rib fractures. Dictated by: Deedee Mark M.D. on 10/14/2018 at 10:43 Approved by: Deedee Mark M.D. on 10/14/2018 at 10:44 Discharge Plan Departure Patient Disposition: Home Clinical Impression: Fracture, ribs Qualifiers: Encounter type: initial encounter Rib fracture type: multiple ribs Fracture type: closed Laterality: right Qualified Code(s): S22.41XA - Multiple fractures of ribs, right side, initial encounter for closed fracture Discharge Date/Time: 10/14/18 18:41 Interventions: ED Discharge Assessment Last Done: 10/14/18 18:41 Instructions: DI for Rib Fracture Activity Restrictions/Additional Instructions: Your chest x-ray and CT scan showed fractures of several ribs on the right. However, there is no evidence of any other organ damage, either to your lung, or to your right kidney or liver. You have developed some nausea from the pain medicine that you were given, as well as possibly from the IV contrast. This is not an allergy, and does not preclude you from having these medicines in the future, especially if necessary; however, it may be solis for you to have nausea medicine if you do require these medications in the future. You will be given a prescription for pain and nausea medicine for home, to used as needed. You should also exercise your lungs with the incentive spirometer that you have been given. This is very important to prevent pneumonia while your ribs are healing. You should blow 10 times in these incentive spirometer every hour that your awake. Try to get the ball as high as you can to encourage your lungs to open up as much as possible. If you develop a worsening cough, shortness of breath, and fever, you should be re-evaluated immediately. You may use a chest binder to help support your chest wall until the ribs are feeling better. Prescriptions: New hydrocodone-acetaminophen 5-325 mg tablet 2 tab PO Q4H PRN (Reason: pain) Qty: 20 RF: 0 ondansetron 4 mg tablet,disintegrating 4 mg PO Q6-8H PRN (Reason: nausea and vomiting) Qty: 20 RF: 0 No Action gabapentin 400 mg capsule 400 mg PO TID Qty: 90 RF: 2 simvastatin 20 mg tablet 20 mg PO QPM Qty: 90 RF: 3 clopidogrel 75 mg tablet 75 mg PO DAILY RF: 0 losartan 100 mg tablet 100 mg PO DAILY RF: 0 [id number]-lycopen-lutein [Centrum Silver Men] 300-600-300 mcg tablet 1 tab PO DAILY RF: 0 trazodone 50 mg tablet 50 mg PO BEDTIME RF: 0 timolol maleate 0.5 % drops 1 drp EYE-BOTH BID RF: 0 Referrals: Dalton Proctor MD [Primary Care Provider] -
[2018-10-14] MEDS: HYDROMORPHONE 1 MG INJ IV (12:02)
[2018-10-14 12:04] LABS: Add Manual Diff / Slide Review NO; Basophils Absolute Auto 0 /uL (0-100); Basophils Percent Auto 0.3 % (0-2); Eosinophils Absolute Auto 200 /uL (0-450); Eosinophils Percent Auto 1.6 % (2-4); Hematocrit 43.4 % (41-53); Hemoglobin 14.5 g/dL (13.5-17.5); Lymphocytes Absolute Auto 1600 /uL (1100-4500); Lymphocytes Percent Auto 14.5 % (25-40); Mean Corpuscular HGB Conc 33.5 % (30-36); Mean Corpuscular Hemoglobin 32.9 PG (26-34); Mean Corpuscular Volume 98.3 fL (80-100); Monocytes Absolute Auto 1100 /uL (0-900); Monocytes Percent Auto 10.1 % (3-14); Neutrophils Absolute Auto 7900 /uL (1500-7000); Neutrophils Percent Auto 73.5 % (50-75); Platelet Count 199 X10^3/uL (150-400); Red Blood Cell Count 4.41 X10^6/uL (4.5-5.9); Red Cell Distribution Width 13.8 % (11.6-14.8); White Blood Cell Count 10.8 X10^3/uL (4.5-11.0)
[2018-10-14 12:10] LABS: Prothrombin Time 11.4 SECONDS (10.1-12.7)
[2018-10-14 12:14] LABS: Alanine Aminotransferase 56 IU/L (21-72); Albumin 4.2 g/dL (3.5-5.0); Albumin Globulin Ratio 1.3 (1.0-2.8); Alkaline Phosphatase 61 U/L (38-126); Aspartate Aminotransferase 37 IU/L (17-59); BUN Creatinine Ratio 38.6 (6-22); Bilirubin Total 0.8 mg/dL (0.2-1.3); Blood Urea Nitrogen 27 mg/dL (9-20); Calcium 9.2 mg/dL (8.4-10.2); Carbon Dioxide 29 mmol/L (22-32); Chloride 101 mmol/L (98-107); Estimated Glomerular Filt Rate > 60.0 mL/min (>60); Globulin 3.3 g/dL (1.7-4.1); Glucose 87 mg/dL (80-110); HEMOLYSIS 16 (0-50); Potassium 4.5 mmol/L (3.4-5.1); Sodium 139 mmol/L (137-145); Total Protein 7.5 g/dL (6.3-8.2)
--- NOTE | 2018-10-14 13:02 | DI.CT.S_ITS ---
PROCEDURE: CT CHEST WO CON INDICATIONS: trauma TECHNIQUE: Noncontrast 5 mm thick sections acquired from the pulmonary apices to the posterior costophrenic angles. 7 mm thick coronal and sagittal MIP reformats were then acquired. For radiation dose reduction, the following was used: automated exposure control, adjustment of mA and/or kV according to patient size. COMPARISON: [facility], CR, XR RIBS RT MIN 3V W CXR 1V, 10/14/2018, 10:25. FINDINGS: Image quality: Excellent. Lungs and pleura: Mild right basilar atelectasis. No pneumothorax. Small right pleural effusion. Central and peripheral airways are patent and normal in caliber. Mediastinum: Heart size is normal. There is calcification of the coronary vasculature. No pericardial effusion. No mediastinal adenopathy by size criteria. Thoracic aorta and central pulmonary arteries are normal in size. Esophagus is normal in caliber. Small hiatal hernia. Bones and chest wall: Mildly displaced fractures of the right anterolateral fifth, sixth, and seventh ribs. Mildly displaced right lateral eighth rib fracture. Mild displaced right posterior ninth rib fracture. Chronic healed left posterior second, third, and fourth rib fractures. No suspicious bony lesions. No vertebral body compression fractures. No axillary or supraclavicular adenopathy by size criteria. Thyroid gland is within normal limits. Abdomen: Visualized upper abdominal solid organs and bowel loops appear normal in the absence of contrast. IMPRESSION: 1. Right rib fractures. 2. Small right pleural effusion. 3. Small hiatal hernia. 4. Coronary artery disease. Dictated by: Deedee Mark M.D. on 10/14/2018 at 13:39 Approved by: Deedee Mark M.D. on 10/14/2018 at 13:41
--- NOTE | 2018-10-14 13:22 | DI.CT.S_ITS ---
PROCEDURE: CT ABDOMEN PELVIS W CON INDICATIONS: trauma R side, on anticoagulation TECHNIQUE: After the administration of intravenous contrast, 5 mm thick sections acquired from the diaphragm to the symphysis. 5 mm coronal and sagittal reformats were acquired. For radiation dose reduction, the following was used: automated exposure control, adjustment of mA and/or kV according to patient size. COMPARISON: [facility], CR, XR RIBS RT MIN 3V W CXR 1V, 10/14/2018, 10:25. [facility], CT, CT CHEST WO CON, 10/14/2018, 13:03. FINDINGS: Image quality: Excellent. ABDOMEN: Lung bases: A small right pleural effusion is present. There is mild right basilar atelectasis. Heart size is normal. Solid organs: Liver is normal in size and enhancement. Gallbladder is within normal limits. Biliary system is non dilated. Pancreas enhances normally. Spleen is normal in size and enhancement. No adrenal nodules. Bilateral renal cysts are present. Kidneys demonstrate otherwise normal size and enhancement, without hydronephrosis. Peritoneum and bowel: Bowel loops demonstrate normal wall thickness and caliber. No free fluid or air. Normal appendix. Nodes and vessels: No retroperitoneal or mesenteric adenopathy by size criteria. Aorta and inferior vena cava are normal in size. Miscellaneous: No ventral hernias. PELVIS: Genitourinary: Bladder wall thickness is normal. Miscellaneous: No inguinal hernias or adenopathy. Bones: Mildly displaced right posterior ninth rib fracture. Mildly displaced fractures of the right anterolateral fifth, sixth, and seventh ribs. Mildly displaced right lateral eighth rib fracture. No suspicious bony lesions. No vertebral body compression fractures. IMPRESSION: 1. Right-sided rib fractures. 2. No evidence of injury to the soft tissues of the abdomen, nor pelvis. Dictated by: Deedee Mark M.D. on 10/14/2018 at 13:36 Approved by: Deedee Mark M.D. on 10/14/2018 at 13:38
[2018-10-14] MEDS: ONDANSETRON 4 MG/2 ML INJ IV (14:17)
[2018-10-14] MEDS: METOCLOPRAMIDE 10 MG/2 ML INJ IV (15:05)
[2018-10-14] MEDS: PROCHLORPERAZINE 10 MG/2 ML VIAL IV (16:47)
--- NOTE | 2018-10-14 16:48 | PC.NURSE ---
In attempt to discharging patient he became nauseated and unable to sit upright. Patient needed to lay back down. Discussed symptoms with provider. Additional antiemetic ordered. patient repositioned in bed will continue to monitor
--- NOTE | 2018-10-14 18:14 | PC.NURSE ---
pt is reporting that he is still nauseated. Dr. Mendoza aware. will re evaluate patient.
== END 2018-10-14 18:41 | disposition home or self-care (01) ==
PROVIDERS: Emergency Provider Emergency Medicine; PCP Internal Medicine
DX: S22.41XA Multiple fractures of ribs, right side, initial encounter for closed fracture (principal); W11.XXXA Fall on and from ladder, initial encounter
CPT/HCPCS: 36591; 71101; 71250; 74177; 80053; 85025; 85610; 96374; 96375; 99283; 99285; J0780; J1170; J2405; J2765; Q9967

== ENCOUNTER → 2018-11-08 14:30 | Day surgery (SDC) | payer MEDICARE, OTHER, SELFPAY | PROVIDERS: Family Provider Internal Medicine; PCP Internal Medicine; Visit Provider Ophthalmology ==

== ENCOUNTER → 2018-11-09 09:07 | Outpatient (CLI) | payer MEDICARE, OTHER, SELFPAY ==
[2018-11-09 09:54] LABS: Add Manual Diff / Slide Review NO; Basophils Absolute Auto 100 /uL (0-100); Basophils Percent Auto 0.9 % (0-2); Eosinophils Absolute Auto 400 /uL (0-450); Eosinophils Percent Auto 6.1 % (2-4); Hematocrit 39.6 % (41-53); Hemoglobin 13.5 g/dL (13.5-17.5); Lymphocytes Absolute Auto 1600 /uL (1100-4500); Lymphocytes Percent Auto 25.4 % (25-40); Mean Corpuscular Hemoglobin 33.1 PG (26-34); Mean Corpuscular Volume 97.3 fL (80-100); Monocytes Absolute Auto 600 /uL (0-900); Monocytes Percent Auto 8.8 % (3-14); Neutrophils Absolute Auto 3800 /uL (1500-7000); Neutrophils Percent Auto 58.8 % (50-75); Platelet Count 270 X10^3/uL (150-400); Red Blood Cell Count 4.07 X10^6/uL (4.5-5.9); Red Cell Distribution Width 13.2 % (11.6-14.8); White Blood Cell Count 6.5 X10^3/uL (4.5-11.0)
[2018-11-09 11:38] LABS: Alanine Aminotransferase 34 IU/L (21-72); Albumin 4.2 g/dL (3.5-5.0); Albumin Globulin Ratio 1.4 (1.0-2.8); Alkaline Phosphatase 117 U/L (38-126); Aspartate Aminotransferase 34 IU/L (17-59); BUN Creatinine Ratio 38.6 (6-22); Bilirubin Total 0.5 mg/dL (0.2-1.3); Blood Urea Nitrogen 27 mg/dL (9-20); Calcium 9.7 mg/dL (8.4-10.2); Carbon Dioxide 28 mmol/L (22-32); Chloride 104 mmol/L (98-107); Cholesterol 160 mg/dL (140-199); Estimated Glomerular Filt Rate > 60.0 mL/min (>60); Globulin 2.9 g/dL (1.7-4.1); Glucose 88 mg/dL (80-110); HDL Cholesterol 39 mg/dL (40-60); HEMOLYSIS < 15 (0-50); LDL Cholesterol Calculated 100 mg/dL (<100); Magnesium 2.2 mg/dL (1.6-2.3); Potassium 5.2 mmol/L (3.4-5.1); Sodium 140 mmol/L (137-145); Total Protein 7.1 g/dL (6.3-8.2); Triglycerides 106 mg/dL (35-150)
[2018-11-09 12:09] LABS: Thyroid Stimulating Hormone 0.91 uIU/mL (0.47-4.68)
== END ==
PROVIDERS: Family Provider Internal Medicine; PCP Internal Medicine; Visit Provider Internal Medicine Cardiovascular Disease
DX: I49.3 Ventricular premature depolarization (principal); E78.5 Hyperlipidemia, unspecified; I10 Essential (primary) hypertension
CPT/HCPCS: 36415; 80053; 80061; 83735; 84443; 85025

== ENCOUNTER → 2018-11-14 06:36 | Outpatient (CLI) | payer MEDICARE, OTHER, SELFPAY ==
--- NOTE | 2018-11-14 | DI.ECHO.S_ITS ---
[place] [facility] +---------+ : : [address] : : : : [id number] : : : : Phone: [phone]+ Echocardiogram Report + + :Name: RENUKA ARREDONDO Study Date: 11/14/2018 Height: 60 in : :[facility] Exam Location: IS Weight: 167 lb : : Gender: Male BSA: 1.7 m2 : :: 1935 Age: 83 yrs BP: 140/85 mmHg: :Reason For Study: Sick Sinus Syndrome : :Ordering Physician: Sommer Wadsworth : :[place] Performed By: Kati Page : :Referring: SOMMER ZHOU : + + Interpretation Summary The left ventricle is normal in size. The ejection fraction is estimated to be 55-60%. The right ventricle is normal in size and function. There is mild to moderate mitral regurgitation. There is mild to moderate aortic regurgitation. The ascending aorta is moderate-severely enlarged.asc Aorta Diam: 4.7 cm Procedure: A two-dimensional transthoracic echocardiogram with color flow and Doppler was performed. The study quality was technically adequate. There is no prior echocardiogram noted for this patient. The patient had occasional PVCs during the exam. The patient was in normal sinus rhythm during the exam. Left Ventricle: The left ventricle is normal in size. Proximal septal thickening is noted. There is no echo evidence for significant left ventricular outflow tract obstruction. There is no thrombus. The ejection fraction is estimated to be 55-60%. There are no focal wall motion abnormalities. MV E/A: 0.92 Med Peak E' Dean: 5.4 cm/sec E/E' med: 16.4. Right Ventricle: The right ventricle is normal in size and function. Atria: Both atria are normal in size. There is no Doppler evidence for an interatrial shunt. Mitral Valve: The mitral valve leaflets are slightly calcified. There is mild mitral annular calcification. There is mild to moderate mitral regurgitation. Aortic Valve: The aortic valve is trileaflet. The aortic valve opens well. The aortic valve is mildly calcified. There is no aortic valve stenosis. There is mild to moderate aortic regurgitation. Tricuspid Valve: The tricuspid valve is normal in structure and function. There is trace tricuspid regurgitation. The right ventricular systolic pressure is estimated to be at least 23 mmHg based on an estimated right atrial pressure of 3 mm Hg. Pulmonic Valve: The pulmonic valve is not well visualized. There is trace pulmonic regurgitation. Great Vessels: The aortic root is mildly dilated. 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 Mild atherosclerotic plaque(s) in the aortic arch. The pulmonary is not well visualized. The IVC is of normal diameter and collapses greater than 50% with a sniff. This suggests a low right atrial pressure of 3 mm Hg. Pericardium/ Pleura There is no pericardial effusion. There is no pleural effusion. MMode/2D Measurements & Calculations LVIDd: 4.9 cm LVOT diam: 2.1 cm LVIDs: 3.5 cm Ao root diam: 4.2 cm FS: 27.0 % asc Aorta Diam: 4.7 cm EPSS: 0.32 cm IVSd: 0.74 cm LVPWd: 0.80 cm LV martino. diameter/BSA (cm/m^2): 2.8 LV sys. diameter/BSA (cm/m^2): 2.1 LA A2 area: 19.7 cm2 RA long axis: 5.0 cm LA A4 area: 20.7 cm2 RA area: 16.1 cm2 LA length (vol): 6.1 cm RA vol: 44.1 ml LA vol: 56.7 ml RA : 25.5 ml/m2 LA vol index: 32.8 ml/m2 IVC diam: 2.1 cm RVD1 (basal): 3.0 cm TAPSE: 1.8 cm Doppler Measurements & Calculations Ao V2 max: 133.5 cm/sec LVOT Max Dean: 114.2 cm/sec Ao V2 mean: 96.5 cm/sec LV V1 max P.2 mmHg Ao max P.1 mmHg LV V1 VTI: 24.3 cm Ao mean P.1 mmHg BRIDGETTE(I,D): 2.6 cm2 Ao V2 VTI: 31.6 cm BRIDGETTE(V,D): 2.9 cm2 sev ratio: 0.77 BRIDGETTE indexed to BSA (cm^2/m^2): 1.5 AI P1/2t: 491.3 msec AI dec slope: 249.2 cm/sec2 MV E max dean: 87.9 cm/sec TR max dean: 223.0 cm/sec MV A max dean: 95.8 cm/sec TR max P.9 mmHg MV E/A: 0.92 PA V2 max: 58.2 cm/sec Med Peak E' Dean: 5.4 cm/sec PA V2 mean: 43.3 cm/sec E/E' med: 16.4 PA mean P.80 mmHg Lat Peak E' Dean: 6.8 cm/sec PA Accel Time: 0.11 sec E/E' lat: 12.8 E/e' average: 14.6 MV dec time: 0.19 sec MV P1/2t: 57.2 msec MV P1/2t max dean: 88.9 cm/sec SV(LVOT): 82.7 ml MVA(P1/2t): 3.8 cm2 Reading Physician:ROXANNA
== END ==
PROVIDERS: Family Provider Internal Medicine; PCP Internal Medicine; Visit Provider Internal Medicine Cardiovascular Disease
DX: I08.0 Rheumatic disorders of both mitral and aortic valves (principal); I49.5 Sick sinus syndrome; I70.0 Atherosclerosis of aorta
CPT/HCPCS: 93306

== ENCOUNTER 2018-11-29 09:24 | Day surgery (SDC) | payer MEDICARE, OTHER, SELFPAY ==
[2018-11-29] MEDS: PROPARACAINE 0.5% OPHTH SOL 2 DROPS EYE-OP (09:39)
[2018-11-29 09:44] VITALS: BP 138/83; PULSE 70; RESP 15; TEMP 36.6; O2SAT 98; BMI 54.3
--- NOTE | 2018-11-29 09:47 | SUR.OPER ---
Supine on eye stretcher, head on extension cradle secured with tape. Arms tucked at sides with blanket. Pillow under knees.
[2018-11-29] MEDS: CATARACT EYE COMPOUND (10 DROPS/SYRINGE) 3 DROPS EYE-OP (09:50)
--- NOTE | 2018-11-29 10:03 | PM.PREOP ---
Pre-operative Note Interval Note History & Physical reviewed/Exam performed by Physician: Yes Changes to H&P: No
[2018-11-29] MEDS: PHENYLEPHRINE/LIDOCAINE VIAL (OR) 0.2 ML EYE-OP (10:39)
[2018-11-29] MEDS: MOXIFLOXACIN OPHTH DROPS 3 ML BOTTLE 2 DROPS INJ (10:40)
[2018-11-29] MEDS: BALANCED SALT IRRIG SOLN NO.2 15 ML IRR (10:41)
[2018-11-29] MEDS: CHONDROIDTIN/SOD HYALURONATE 1.05 ML SYRINGE INTRAOCULA (10:41)
[2018-11-29] MEDS: BALANCED SALT IRRIG SOLN NO.2 500 ML, EPINEPHrine 1 MG IRR (10:42)
[2018-11-29] MEDS: TETRACAINE 0.5% OPHTH DROPS 4 ML 1 DROPS EYE-LEFT (10:42)
[2018-11-29] MEDS: LIDOCAINE 2% INJ SDV 0.5 ML TOP (10:43)
--- NOTE | 2018-11-29 11:10 | P.OP_ITS ---
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 The correct patient, surgical site and lens were confirmed. 0.5 % tetracaine drops were placed in the left eye. The patient was prepped and draped in the typical steri le manner. A lid speculum was placed in the eye. 2% lidocaine was placed on the eye. A paracentesis port was created with a side-port blade. 0.1 mL of 1% preservative free lidocaine with phenylephrine was injected into the anterior chamber. Viscoelastic was injected into the anterior chamber. A 2.6mm keratome was used to create a clear corneal temporal incision. Cystotome and Utrata forceps were used to create a continuous curvilinear capsulorrhexis. During this step the bag was noted to be stable. Balanced salt solution was used to hydrodissect the nucleus. Phacoemulsification was used to remove the lens and residual cortical material was removed with irrigation and aspiration. The bag was polished with irrigation and aspiration tip. The capsular bag was inflated with viscoelastic. A Ordaz ZBOO +15.0D lens was inserted into the capsule. Viscoelastic was removed. The lens was well centered and the lens/capsular complex was found to be stable. The wounds were hydrated. The wounds was found to be leak free and the eye was assessed to be at normal physiologic pressure. 0.1mL Vigamox was injected into the anterior chamber. The lid speculum was removed and the patient left the operating room in excellent condition. Complications: none Condition: stable Disposition: same day surgery
[2018-11-29 11:18] VITALS: BP 142/77; PULSE 65; RESP 14; TEMP 36; O2SAT 100
[2018-11-29 11:25] VITALS: BP 151/77; PULSE 62; O2SAT 99
== END 2018-11-29 11:39 | disposition home or self-care (01) ==
LOC: OR 09:26
PROVIDERS: Family Provider Internal Medicine; PCP Internal Medicine; Visit Provider Ophthalmology
DX: H25.12 Age-related nuclear cataract, left eye (principal); I10 Essential (primary) hypertension
CPT/HCPCS: J0171; J2704

== ENCOUNTER → 2019-03-28 07:37 | Outpatient (CLI) | payer MEDICARE, OTHER, SELFPAY ==
[2019-03-28 09:22] LABS: Alanine Aminotransferase 26 IU/L (21-72); Albumin 4.2 g/dL (3.5-5.0); Albumin Globulin Ratio 1.3 (1.0-2.8); Alkaline Phosphatase 88 U/L (38-126); Aspartate Aminotransferase 33 IU/L (17-59); BUN Creatinine Ratio 33.3 (6-22); Bilirubin Total 0.6 mg/dL (0.2-1.3); Blood Urea Nitrogen 30 mg/dL (9-20); Calcium 9.7 mg/dL (8.4-10.2); Carbon Dioxide 28 mmol/L (22-32); Chloride 106 mmol/L (98-107); Cholesterol 180 mg/dL (140-199); Estimated Glomerular Filt Rate > 60.0 mL/min (>60); Globulin 3.2 g/dL (1.7-4.1); Glucose 93 mg/dL (80-110); HDL Cholesterol 41 mg/dL (40-60); HEMOLYSIS < 15 (0-50); LDL Cholesterol Calculated 108 mg/dL (<100); Sodium 141 mmol/L (137-145); Total Protein 7.4 g/dL (6.3-8.2); Triglycerides 157 mg/dL (35-150)
[2019-03-28 09:24] LABS: Potassium 5.4 mmol/L (3.4-5.1)
== END ==
PROVIDERS: PCP Internal Medicine; Visit Provider Internal Medicine Cardiovascular Disease
DX: E78.5 Hyperlipidemia, unspecified (principal)
CPT/HCPCS: 36415; 80053; 80061

== ENCOUNTER → 2019-03-29 08:30 | Outpatient (CLI) | payer MEDICARE, OTHER, SELFPAY ==
--- NOTE | 2019-03-29 | DI.CT.S_ITS ---
PROCEDURE: CT ANGIO CHEST ABDOMEN INDICATIONS: Thoracic aortic ectasia TECHNIQUE: Precontrast 5 mm thick sections acquired from the lung apices to the iliac crests. After the administration of intravenous contrast, 2.5 mm thick sections again acquired from the lung apices to the iliac crests. 10 mm maximum intensity projection (MIP) oblique sagittal and coronal reformats were then acquired. For radiation dose reduction, the following was used: automated exposure control. COMPARISON: [facility], CT, CT CHEST WO CON, 10/14/2018, 13:03. [facility], CR, XR CHEST 1V, 10/17/2018, 15:20. [facility], CR, XR CHEST 2 VIEWS, 11/21/2018, 8:01. FINDINGS: Image quality: Excellent. AORTA: Intramural hematoma: Absent Maximum hematoma thickness: Not applicable. Focal contrast enhancement: Intramural blood pool (< 2 mm neck or imperceptible communication with aortic lumen): Absent. Ulcer-like projection (broad communication with aortic lumen > 3 mm): Absent. Dissection: Absent Bellwood classification: Not applicable Maximum aortic diameter: 4.4 cm, without dissection. Periaortic hematoma: Absent. CHEST: Lungs and pleura: No acute airspace opacities. There is an interstitial prominence suggestive of prior smoking history. No pleural effusions or pneumothorax. Central and peripheral airways are patent and normal in caliber. Mediastinum: Heart size is normal. No pericardial effusion. No mediastinal or hilar adenopathy by size criteria. Central pulmonary arteries are normal in size. Esophagus is normal in caliber. No hiatal hernias. Pacemaker device and leads extend in normal position. Bones and chest wall: No axillary adenopathy by size criteria. Thyroid gland appears normal where well seen, considering streak artifact from adjacent contrast infusion density crossing through that area. No suspicious bony lesions. No vertebral body compression fractures. ABDOMEN: Vasculature: Celiac trunk and mesenteric arteries are patent. Renal arteries are also patent. Solid organs: Liver is normal in size and enhancement. Gallbladder appears normal. Biliary system is non dilated. Pancreas enhances normally. Spleen is normal in size and enhancement. No adrenal nodules. Both kidneys are normal in size and enhancement, without hydronephrosis. Several simple appearing renal cortical cysts are incidentally noted. Peritoneum and bowel: No free fluid or air. Bowel loops are normal in caliber and wall thickness. Nodes and vessels: No retroperitoneal or mesenteric adenopathy by size criteria. Inferior vena cava is normal in morphology. Bones: No suspicious bony lesions. No vertebral body compression fractures. Miscellaneous: No ventral hernias. IMPRESSION: 1. Mild ectasia of the ascending thoracic aorta measuring up to 4.4 cm in maximal dimension measured at the same site as previously measured 10/14/18 when the measurement was 4.6 cm. There is a normal degree of variability of the measurements of the ascending aorta to a last density of the vessel in different phases of the cardiac cycle. 2. No suspicion for aortic dissection or aneurysm leak. Incidental is made of interstitial prominence involving the lung parenchyma symmetric bilaterally and most likely reflecting prior smoking history. Dictated by: Victor Hugo Higgins M.D. on 03/29/2019 at 12:13 Approved by: Victor Hugo Higgins M.D. on 03/29/2019 at 12:21
== END ==
PROVIDERS: PCP Internal Medicine; Visit Provider Internal Medicine Cardiovascular Disease
DX: I77.810 Thoracic aortic ectasia (principal); J84.9 Interstitial pulmonary disease, unspecified
CPT/HCPCS: 71275; 74175; Q9967

== ENCOUNTER 2019-05-23 10:19 | Outpatient (CLI) | payer MEDICARE, OTHER, SELFPAY ==
--- NOTE | 2019-05-23 10:22 | DI.RAD.S_ITS ---
PROCEDURE: PAIN L/S TRANSFORAMINAL INJECT INDICATIONS: SPINAL STENOSIS FINDINGS: Fluoroscopic spot filming was performed to verify placement of spinal needles at the L4-L5 level(s), as labeled on the films. Appropriate location(s) of the needle tip(s) was confirmed by injection of iodinated contrast. Dictated by: Michael Myers M.D. on 05/23/2019 at 12:49 Approved by: Michael Myers M.D. on 05/23/2019 at 12:49
[2019-05-23 10:30] VITALS: BP 139/79; PULSE 63; RESP 16; TEMP 36; O2SAT 100
[2019-05-23 11:10] VITALS: BP 149/71; PULSE 60; RESP 16; O2SAT 100
[2019-05-23] MEDS: MIDAZOLAM 5 MG/5 ML VIAL IV (11:12)
[2019-05-23 11:17] VITALS: BP 128/67; PULSE 76; RESP 14; O2SAT 100
[2019-05-23] MEDS: BETAMETHASONE 30 MG/5 ML MDV 6 MG INJ (11:18)
[2019-05-23] MEDS: DEXAMETHASONE 10 MG/ML VIAL 20 MG INJ (11:18)
[2019-05-23] MEDS: BUPIVACAINE 0.25% (PF) VIAL 2 ML INJ (11:18)
[2019-05-23] MEDS: IOPAMIDOL 15 ML VIAL 3 ML INJ (11:18)
--- NOTE | 2019-05-23 11:31 | P.PCN_ITS ---
Procedures Date/Time Date of procedure: 05/23/19 Time of procedure: 11:31 General Procedure description: PREOP DIAGNOSIS 1. FORMAINAL STENOSIS WITH LE SYMPTOMS POST OP DIAGNOSIS 1. FORMAINAL STENOSIS WITH LE SYMPTOMS PROCEDURES 1. FLUOROSCOPICALLY GUIDED CONTRAST CONTROLLED TRANSFORAMINAL EPIDURAL STEROID INJECTION - LEFT L4/5 PHYSICIAN: Bry Marie DO INDICATIONS: Chuckie is referred by Dr. Proctor for treatment of Foraminal Stenosis with Left LE Symptoms FINDINGS Foraminal Nerve Root Compression secondary to disc disease and facet hypertrophy DESCRIPTION OF PROCEDURE: Following review of allergy and review of potential side effects and complications, including, but not necessarily limited to, infection, allergic reaction, local tissue breakdown, stroke, temporary or permanent nerve injury, paralysis, and possible , the patient indicated that the patient understood and agreed to proceed. An informed consent document was signed by the patient, witnessed by a nurse, and placed in the patient's chart. Additionally, other treatment options including medications, modalities, and physical therapy were reviewed with the patient. After review of previous anaesthesic history and IV conscious sedation the lynn ent was deemed safe to proceed with todays procedure with IV conscious sedation as ASA class II designation. Safety time-out was performed to confirm patient ID, procedure to be performed and site of procedure. IV sedation was accomplished with a combination of 2mg of Versed administered by the RN after DO order, titrated to patient comfort during the course of the procedure while the patient remained responsive to all verbal commands In the prone position following sterile prep and drape of the lumbar region, the left L4/5 posterior neuroforamen was identified fluoroscopically. The skin was anesthetized via a 25-gauge 1.5-inch needle with 1% lidocaine solution. At this point, a 25-gauge 3.5-inch spinal needle was atraumatically introduced and advanced under fluoroscopic guidance through the posterior left L4/5 neuroforamen to approximately the anterior aspect of the canal. Depth was confirmed on lateral view. Following negative aspiration, injection of approximately 1.5 cc of Isovue 200 under live fluoroscopy in the AP view confirmed excellent flow along the nerve root, into the epidural space without vascular or intrathecal uptake observed Radiological data, including multiple fluoroscopic views of the lumbosacral spine, reveal a spinal needle at the left L4/5 posterior neuroforamen. Subsequent views show flow of contrast material flowing superiorly and inferiorly along the nerve root confirming epidural flow. Subsequently, a test dose of 1.5 cc of 1% lidocaine solution was administered and patient was observed for two minutes for signs or symptoms of complications, including abdominal pain, shortness of breath, bilateral upper or lower extremity weakness, nausea and vomiting, prior to steroid injection. At this point, a total of 3cc or 20mg of dexamethasone and 6mg of betamethasone was injected without incident. The procedure tolerated the procedure well without signs or symptoms of complications prior to transfer to the recovery area continued monitoring without incident. The patient was then transferred to the recovery area where they were observed for an appropriate time after the injection. The patient reported a VAS score of 7 prior to the procedure and a post- procedure VAS of 0. Total Fluoroscopy Time: 20.9 seconds Total Conscious Sedation Time: 24min POST OP INSTRUCTIONS The patient was provided a Pain Log to continue to record their response to the target-specific procedure prior to follow-up visit with their referring physician. Additionally, specific post-injection care instructions and a contact number to our office were provided if concerns arise regarding possible complications associated with the procedure are suspected. Bry Marie DO Complications: none
[2019-05-23 11:37] VITALS: BP 126/83; PULSE 73; RESP 16; O2SAT 98
--- NOTE | 2019-05-23 11:37 | PC.NURSE ---
Post procedure note: time out at 1110. Medicated per provider order with 2 mg Versed IV at 1112. Tolerated procedure well. VSS, O2 Sat WNL on 2L throughtout procedure. Procedure end at 1122. patient sat up and transfered to wheelchair with 2 stand by assist. Legs slightly week but denied numbness or tingling to lower extremities. .pain level prior to transfer 3/10. Transported for post procedure monitoring. Handoff report given to Ambrose Licea at 1130. [facility] 1[facility]10 [facility]
--- NOTE | 2019-05-23 11:39 | PC.NURSE ---
ACCEPTED CARE OF PT IN POST PROC AREA IN STABLE CONDITION AT 1138AM.
[2019-05-23 11:42] VITALS: BP 110/76; PULSE 72; RESP 16; O2SAT 98
== END 2019-05-23 12:08 | disposition home or self-care (01) ==
LOC: RAD 10:21
PROVIDERS: PCP Internal Medicine; Visit Provider Physical Medicine & Rehabilitation
DX: M48.061 Spinal stenosis, lumbar region without neurogenic claudication (principal); M51.16 Intervertebral disc disorders with radiculopathy, lumbar region
CPT/HCPCS: 64483; 99152; J0702; J1100; J2250; J3010

== ENCOUNTER → 2019-06-24 08:34 | Outpatient (CLI) | payer MEDICARE, OTHER, SELFPAY ==
--- NOTE | 2019-06-24 09:22 | DI.CT.S_ITS ---
PROCEDURE: CT LUMBAR SPINE WO CON INDICATIONS: radicular pain right TECHNIQUE: Noncontrast 3 mm thick sections acquired from the T12 level to the sacrum. Sagittal and coronal reformats were constructed. For radiation dose reduction, the following was used: automated exposure control. COMPARISON: [facility], [facility], MRI L-SPINE W/O CONTRAST, 01/17/2017, 7:50. FINDINGS: Image quality: Excellent. Bones: There is trace anterolithesis of L3 on L4, trace retrolithesis of L4 on L5. Moderate to severe disc space narrowing is present at L4-5, mild throughout the remainder of the lumbar spine. Mild disc bulges are present L1-2 through L5-S1. There is moderate to severe spinal stenosis at L1-L2, severe L2-3, L3-4, L4-5 and mild to moderate L5-S1. Multilevel areas demonstrate regression compared to prior exam. There is severe left and moderate to severe right foraminal narrowing at L1-L2, moderate to severe bilateral foraminal narrowing L2-3, severe bilateral L3-4, severe bilateral L4-5 and mild left L5-S1. Multilevel interval progression is noted. Multilevel facet and ligamentum flavum hypertrophy are present. L3 left laminectomy is noted. Soft tissues: No retroperitoneal masses or hematomas. Visualized aorta is normal in caliber. IMPRESSION: 1. Significant multiple degenerative changes, progressive compared at 2017. 2. Multilevel spinal stenosis, severe at multiple levels secondary to disc bulge with contributing effect of facet/ligamentum flavum arthropathy. Dictated by: Hortensia Ashby M.D. on 06/24/2019 at 11:30 Approved by: Hortensia Ashby M.D. on 06/24/2019 at 11:56
== END ==
PROVIDERS: PCP Internal Medicine; Visit Provider Registered Nurse
DX: M47.26 Other spondylosis with radiculopathy, lumbar region (principal); M47.27 Other spondylosis with radiculopathy, lumbosacral region; M48.061 Spinal stenosis, lumbar region without neurogenic claudication; M48.07 Spinal stenosis, lumbosacral region; M51.16 Intervertebral disc disorders with radiculopathy, lumbar region; M51.17 Intervertebral disc disorders with radiculopathy, lumbosacral region
CPT/HCPCS: 72131

== ENCOUNTER 2019-07-30 14:35 | Outpatient (CLI) | payer MEDICARE, OTHER, SELFPAY ==
[2019-07-30] VITALS (7 sets, daily range): BP systolic 108–139; BP diastolic 65–76; PULSE 59–66; RESP 15–16; TEMP 36.3; O2SAT 98–100
--- NOTE | 2019-07-30 14:38 | DI.RAD.S_ITS ---
PROCEDURE: PAIN L/S TRANSFORAMINAL INJECT INDICATIONS: SPONDYLOSIS FINDINGS: Fluoroscopic spot filming was performed to verify placement of spinal needles at the L3-4 level(s), as labeled on the films. Appropriate location(s) of the needle tip(s) was confirmed by injection of iodinated contrast. There is trace anterolisthesis of L3 on L4. IMPRESSION: L3-4 needle placement as above. Dictated by: Hortensia Ashby M.D. on 07/30/2019 at 17:07 Approved by: Hortensia Ashby M.D. on 07/30/2019 at 17:08
[2019-07-30] MEDS: MIDAZOLAM 5 MG/5 ML VIAL IV (15:41)
[2019-07-30] MEDS: IOPAMIDOL 15 ML VIAL 3 ML INJ (15:52)
[2019-07-30] MEDS: BUPIVACAINE 0.25% (PF) VIAL 2 ML INJ (15:53)
[2019-07-30] MEDS: BETAMETHASONE 30 MG/5 ML MDV 12 MG INJ (15:54)
--- NOTE | 2019-07-30 16:05 | P.PCN_ITS ---
Procedures Date/Time Date of procedure: 07/30/19 Time of procedure: 16:05 General Procedure description: PROVIDER: Bry Marie DO Operative Note PREOP DIAGNOSIS 1. FORAMINAL STENOSIS WITH LE SYMPTOMS, POST OP DIAGNOSIS 1. FORAMINAL STENOSIS WITH LE SYMPTOMS, PROCEDURES 1. FLUOROSCOPICALLY GUIDED CONTRAST CONTROLLED TRANSFORAMINAL EPIDURAL STEROID INJECTION - LEFT L3/4 TFESI SURGEON: Bry Marie DO INDICATIONS is referred by for treatment of Foraminal Stenosis with left LE Symptoms FINDINGS Foraminal Nerve Root Compression secondary to disc disease and facet hypertrophy DESCRIPTION OF PROCEDURE Following review of allergy and review of potential side effects and complications, including, but not necessarily limited to, infection, allergic reaction, local tissue breakdown, stroke, temporary or permanent nerve injury, paralysis, and possible , the patient indicated that the patient understood and agreed to proceed. An informed consent document was signed by the patient, witnessed by a nurse, and placed in the patient's chart. Additionally, other treatment options including medications, modalities, and physical therapy were reviewed with the patient. After review of previous anaesthesic history and IV conscious sedation the patient was deemed safe to proceed with todays procedure with IV conscious sedation as ASA class II designation. Safety time-out was performed to confirm patient ID, procedure to be performed and site of procedure. IV sedation was accomplished with 2mg of Versed was administered by the RN after DO order, titrated to patient comfort during the course of the procedure while the patient remained responsive to all verbal commands In the prone position following sterile prep and drape of the lumbar region, the left L3/4 posterior neuroforamen was identified fluoroscopically. The skin was anesthetized via a 25-gauge 1.5-inch needle with 1% lidocaine solution. At this point, a 25-gauge 3.5-inch spinal needle was atraumatically introduced and advanced under fluoroscopic guidance through the posterior left L3/4 neuroforamen to approximately the anterior aspect of the canal. Depth was confirmed on lateral view. Following negative aspiration, injection of approxi mately 1.5cc of Isovue 200 under live fluoroscopy in the AP view confirmed excellent flow along the nerve root, into the epidural space without vascular or intrathecal uptake observed Radiological data, including multiple fluoroscopic views of the lumbosacral spine, reveal a spinal needle at the left L3/4 posterior neuroforamen. Subsequent views show flow of contrast material flowing superiorly and inferiorly along the nerve root confirming epidural flow. Subsequently, a test dose of 1.5cc of 1% lidocaine solution was administered and patient was observed for two minutes for signs or symptoms of complications, including abdominal pain, shortness of breath, bilateral upper or lower extremity weakness, nausea and vomiting, prior to steroid injection. At this point, a total of 2cc or 12mg betamethasone was injected without incident. The patient tolerated the procedure well without signs or symptoms of complications prior to transfer to the recovery area continued monitoring wit hout incident. The patient was then transferred to the recovery area where they were observed for an appropriate time after the injection. The patient reported a VAS score of 7 prior to the procedure and a post-procedure VAS of 0. Total Fluoroscopy Time: 24.2 seconds Total Conscious Sedation Time: 24min POST OP INSTRUCTIONS The patient was provided a Pain Log to continue to record their response to the target-specific procedure prior to follow-up visit with their referring physician. Additionally, specific post-injection care instructions and a contact number to our office were provided if concerns arise regarding possible complications associated with the procedure are suspected. Bry Marie DO Complications: none
--- NOTE | 2019-07-30 16:05 | PC.NURSE ---
Post procedure note: Patient medicated per providers orders. Tolerated procedure well. VSS. Able to transfer to wheelchair with 2 stand by assist. No complaints of pain, numbness or tingling. Mild weakness to lower extremities per patient. Handoff report given to Ambrose Licea RN.
--- NOTE | 2019-07-30 16:30 | PC.NURSE ---
ACCEPTED CARE OF PT IN POST PROC AREA AT 1607 IN STABLE CONDITION.
== END 2019-07-30 16:29 | disposition home or self-care (01) ==
PROVIDERS: Family Provider Internal Medicine; PCP Internal Medicine; Visit Provider Physical Medicine & Rehabilitation
DX: M48.061 Spinal stenosis, lumbar region without neurogenic claudication (principal); M51.16 Intervertebral disc disorders with radiculopathy, lumbar region
CPT/HCPCS: 64483; 99152; J0702; J2250; J3010

== ENCOUNTER → 2019-09-19 07:22 | Outpatient (CLI) | payer MEDICARE, OTHER, SELFPAY ==
[2019-09-19 08:55] LABS: Alanine Aminotransferase 33 IU/L (<50); Albumin 4.2 g/dL (3.5-5.0); Albumin Globulin Ratio 1.3 (1.0-2.8); Alkaline Phosphatase 77 U/L (38-126); Aspartate Aminotransferase 40 IU/L (17-59); BUN Creatinine Ratio 28.8 (6-22); Bilirubin Total 0.7 mg/dL (0.2-1.3); Blood Urea Nitrogen 23 mg/dL (9-20); Calcium 9.2 mg/dL (8.4-10.2); Carbon Dioxide 26 mmol/L (22-32); Chloride 106 mmol/L (98-107); Cholesterol 145 mg/dL (140-199); Estimated Glomerular Filt Rate > 60.0 mL/min (>60); Globulin 3.2 g/dL (1.7-4.1); Glucose 100 mg/dL (80-110); HDL Cholesterol 36 mg/dL (40-60); HEMOLYSIS < 15 (0-50); LDL Cholesterol Calculated 79 mg/dL (<100); Potassium 4.5 mmol/L (3.4-5.1); Sodium 140 mmol/L (137-145); Total Protein 7.4 g/dL (6.3-8.2); Triglycerides 149 mg/dL (35-150)
== END ==
PROVIDERS: Family Provider Internal Medicine; PCP Internal Medicine; Referring Provider Internal Medicine Cardiovascular Disease; Visit Provider Internal Medicine Cardiovascular Disease
DX: E78.5 Hyperlipidemia, unspecified (principal)
CPT/HCPCS: 36415; 80053; 80061

== ENCOUNTER 2019-09-24 09:42 | Outpatient (CLI) | payer MEDICARE, OTHER, SELFPAY ==
[2019-09-24] VITALS (9 sets, daily range): BP systolic 104–127; BP diastolic 59–76; PULSE 59–71; RESP 14–16; TEMP 36.6; O2SAT 97–100
--- NOTE | 2019-09-24 09:44 | DI.RAD.S_ITS ---
PROCEDURE: PAIN L/S FACET INJ/BLK 1ST ARON COMPARISON: [facility], XA, PAIN L/S FACET INJ/BLK 1ST ARON, 08/07/2018, 16:25. [facility], XA, PAIN L/S FACET INJ/BLK 1ST ARON, 06/12/2018, 15:52. INDICATIONS: SPONDYLOSIS FINDINGS: Needle tip position was documented for bilateral L3 and L4 medial branch block procedures (4 total). IMPRESSION: Successful needle tip localization for subsequent bilateral medial branch block procedures. Dictated by: Victor Hugo Higgins M.D. on 09/24/2019 at 13:22 Approved by: Victor Hugo Higgins M.D. on 09/24/2019 at 13:23
[2019-09-24] MEDS: MIDAZOLAM 5 MG/5 ML VIAL IV (10:28)
[2019-09-24] MEDS: LIDOCAINE 1% 20 ML 10 ML INJ (10:33)
[2019-09-24] MEDS: IOPAMIDOL 15 ML VIAL 3 ML INJ (10:33)
[2019-09-24] MEDS: BUPIVACAINE 0.5% (PF) VIAL 2 ML INJ (10:33)
--- NOTE | 2019-09-24 10:37 | PC.NURSE ---
ASSISTING PT OFF TABLE AND TRANSPORTING TO POST PROC AREA IN STABLE CONDITION. PASSING RN CARE OF PT OFF TO KIMBERLEE Velazquez RN
--- NOTE | 2019-09-24 10:41 | PM.PROC.1 ---
Procedures Date/Time Date of procedure: 09/24/19 Time of procedure: 10:41 General Procedure description: POST OP DIAGNOSIS 1. FACET ARTHROPATHY PROCEDURES 1. BILATERAL L3, L4 DIAGNOSTIC MB BLOCKS PHYSICIAN: DO SAMSON Merrill Chuckie is referred by Dr. Proctor for treatment of Bilateral Axial LBP. DESCRIPTION OF PROCEDURE Fluoroscopically guided, contrast-controlled bilateral L3, L4 medial branch blocks with 0.5cc of 0.5% Marcaine. Following review of allergy and review of potential side effects and complications, including, but not necessarily limited to, infection, allergic reaction, local tissue breakdown, nerve injury, paralysis, stroke and possible , the patient indicated that the patient understood and agreed to proceed. An informed consent document was signed by the patient, witnessed by a nurse, and placed in the patient's chart. After review of previous anaesthesic history and IV conscious sedation the patient was deemed safe to proceed with todays procedure with IV conscious sedation as ASA class II designation. Safety time-out was performed to confirm patient ID, procedure to be performed and site of procedure. IV sedation was accomplished with a combination of 2mg of Versed was administered by the RN after DO order, titrated to patient comfort during the course of the procedure while the patient remained responsive to all verbal commands In the prone position, following sterile prep and drape of the lumbar region, the right L3, L4 anatomical location of the medial branch of the dorsal ramus was identified fluoroscopically. Subsequently an anesthetic skin wheal using 1% lidocaine solution was initiated at each of the anatomical spots. Subsequently then a 22-gauge 3.5-inch spinal needle was atraumatically introduced and advanced under fluoroscopic guidance at each of the corresponding sites at the right L3, L4 MB. After negative aspiration, 0.2cc of Isovue 200 was injected, confirming placement without vascular or intrathecal uptake. Subsequently then 0.5cc of 0.5% Marcaine solution was injected at each of the corresponding sites at the right L3, L4 medial branch locations. The identical procedure was replicated on the left. The patient tolerated the procedure well without signs or symptoms of complications. The patient tolerated the procedure well and then extra time and reversal of the Versed due to his tentative cardiac status was implemented to ensure safe transfer to the recovery area where continued monitoring occurred without incident. Post-procedure, the patient was monitored initiating provocative activities to measure the amount of relief from block of the facetogenic pain. The patient reported a VAS of 7 prior to the procedure and a post-procedure VAS of 1. It has been a pleasure to assist in the diagnostic and therapeutic care of your patient. Total Fluoroscopy Time: 7 seconds Total Conscious Sedation Time: 24min POST OP INSTRUCTIONS The patient was provided with a Pain Log to complete over the next several hours and subsequent days prior to the patient's follow up with the ordering physician. If the patient has sole seamer relief to the solution applied, then they may be a candidate for medial branch rhizotomy. The patient is aware, was provided, once again, with a Pain Log and will follow up with the referring physician for review and clinical correlation Bry Marie DO Complications: none
--- NOTE | 2019-09-24 10:59 | PC.NURSE ---
1100: Received patient post procedure, drowsy but arouses to voice easily. Transferred from to chair, SBA. VSS upon arrival, O2 sat 99% on RA.
--- NOTE | 2019-09-24 11:07 | PC.NURSE ---
PT GROGGY AND NEEDED ASSISTANCE SITTING UP. PT ASKED MULTIPLE TIMES TO OPEN EYES AND WAS SWAYING ON TABLE WHEN ASKED TO INDEPENDENTLY SIT. PT A&OX4 AND ALL VSS. UPON ATTEMPT TO STAND, ALTHOUGH LEGS WERE STRONG AND BLE NEURO CHECK WAS NEGATIVE, PT UNABLE TO STAND. DR RODARTE ASKED FOR VERSED TO BE REVERSED. 0.2MG OF FLUMAZENIL GIVEN AT 1052. AFTER 2 MINUTES, PT ABLE TO SIT INDEPENDENTLY, STATES WOOZINESS IS GONE, MAKING EYE CONTACT AND HOLDING NORMAL CONVERSATION. PT ABLE TO GET OFF PROCEDURE TABLE WITH ASSISTANCE AND TAKEN TO POST PROC AREA IN STABLE CONDITION. RN CARE OF PT PASSING TO KIMBERLEE Velazquez RN AT APPROX [id number].
[2019-09-24] MEDS: FLUMAZENIL 0.5 MG/5 ML MDV 0.2 MG IV (11:30)
--- NOTE | 2019-09-24 11:46 | PC.NURSE ---
1125: Discharge criteria met, VSS, O2 sat 99% on RA. Awake, able to carry conversation. Very pleasant and calm. Up out of chair to WC with SBA. Discharge home via WC accompanied by and True Morgan
== END 2019-09-24 11:25 | disposition home or self-care (01) ==
LOC: RAD 09:43
PROVIDERS: Family Provider Internal Medicine; PCP Internal Medicine; Referring Provider Internal Medicine; Visit Provider Physical Medicine & Rehabilitation
DX: M47.816 Spondylosis without myelopathy or radiculopathy, lumbar region (principal)
CPT/HCPCS: 64493; 99152; J2250; J3010

== ENCOUNTER → 2019-10-07 11:04 | Outpatient (CLI) | payer MEDICARE, OTHER, SELFPAY ==
--- NOTE | 2019-10-07 11:07 | DI.RAD.S_ITS ---
PROCEDURE: XR SHOULDER RT MIN 2V INDICATIONS: Right shoulder pain TECHNIQUE: 3 is views of the shoulder were acquired. COMPARISON: None. FINDINGS: Bones: No fractures or dislocations. No suspicious bony lesions. Visualized ribs appear intact. Widening of the AC joint space measuring 11 mm, and glenohumeral degenerative sclerosis and spurring. Soft tissues: No suspicious soft tissue calcifications. IMPRESSION: Widening of the AC joint space, technically age-indeterminate although suggests acromioclavicular separation. Dedicated acromioclavicular radiographs within without weights could be performed as clinical warranted. Mild right shoulder joint degeneration. If the patient's pain or other symptoms persist, consider further evaluation with MRI Dictated by: Michael Myers M.D. on 10/07/2019 at 11:51 Approved by: Michael Myers M.D. on 10/07/2019 at 11:53
== END ==
PROVIDERS: Family Provider Internal Medicine; PCP Internal Medicine; Referring Provider Physical Medicine & Rehabilitation; Visit Provider Physical Medicine & Rehabilitation
DX: M75.41 Impingement syndrome of right shoulder (principal); M25.511 Pain in right shoulder; M19.011 Primary osteoarthritis, right shoulder
CPT/HCPCS: 73030

== ENCOUNTER → 2020-01-06 10:28 | Outpatient (CLI) | payer MEDICARE, OTHER, SELFPAY ==
[2020-01-07 15:52] LABS: COVID19 Sendout NOT DETECTED (Not Detect)
== END ==
PROVIDERS: Family Provider Internal Medicine; PCP Internal Medicine; Visit Provider Registered Nurse
DX: Z01.812 Encounter for preprocedural laboratory examination (principal)
CPT/HCPCS: 87635

== ENCOUNTER 2020-01-09 07:19 | Outpatient (CLI) | payer MEDICARE, OTHER, SELFPAY ==
[2020-01-09] VITALS (10 sets, daily range): BP systolic 115–149; BP diastolic 67–99; PULSE 60–72; RESP 12–16; TEMP 36.1; O2SAT 97–100
--- NOTE | 2020-01-09 07:23 | DI.RAD.S_ITS ---
PROCEDURE: PAIN L/S MED/LAT N RFA BILAT INDICATIONS: SPONDYLOSIS FINDINGS: Fluoroscopic spot filming was performed to verify placement of spinal needles at the L3 and L4 level(s), as labeled on the films. Appropriate location(s) of the needle tip(s) was confirmed by injection of iodinated contrast. IMPRESSION: Bilateral L3 and L4 needle tip positioning has been performed for medial branch block rhizotomy procedures, 4 total. Dictated by: Victor Hugo Higgins M.D. on 01/09/2020 at 10:18 Approved by: Victor Hugo Higgins M.D. on 01/09/2020 at 10:28
[2020-01-09] MEDS: fentaNYL 100 MCG/2 ML INJ 50 MCG IV (08:22)
[2020-01-09] MEDS: BUPIVACAINE 0.5% (PF) VIAL 5 ML INJ (08:28)
[2020-01-09] MEDS: LIDOCAINE 1% 20 ML 10 ML INJ (08:28)
--- NOTE | 2020-01-09 09:01 | PM.PROC.1 ---
Procedures Date/Time Date of procedure: 01/09/20 Time of procedure: 09:01 General Procedure description: PREOP DIAGNOSIS 1. RECALCITRANT FACET ARTHROPATHY, POST OP DIAGNOSIS 1. RECALCITRANT FACET ARTHROPATHY PROCEDURES 1. BILATERAL L3, L4 MEDIAL BRANCH RADIOFREQUENCY NEUROTOMY PHYSICIAN: Bry Marie DO INDICATIONS: Chuckie is referred by Dr. Proctor for treatment of facet arthropathy. DESCRIPTION OF PROCEDURE Bilateral L3, L4 medial branch radiofrequency neurotomy The patient is well known to this clinic having undergone previous facet injections with good but temporary relief. The patient has experienced appropriate, concordant relief with previous facet and median branch blocks but the patient's pain has been recalcitrant to further conservative measures. Therefore, based upon the patient's relief and persistent symptoms, the patient is considered an appropriate candidate for facet rhizotomy. All of the patient's questions regarding the risks versus benefits of the procedure, including, but not limited to, bleeding, infection, temporary as well as lasting nerve injury, paralysis, stroke, and , as well treatment alternatives were answered to satisfaction. After obtaining informed consent, denial of pertinent drug allergies, as well as being made aware of the potential risks of bleeding, infection, spinal cord trauma, paralysis, temporary and permanent nerve damage, seizure, stroke, and possible , the patient was brought to the fluoroscopy suite and positioned prone on the fluoroscopy table. The lumbar region was prepped with Betadine and covered with a fenestrated drape in the usual sterile fashion. Appropriate monitors applied including pulse oximeter, pulse, and blood pressure for regular monitoring throughout the procedure. After review of previous anaesthesic history and IV conscious sedation the patient was deemed safe to proceed with todays procedure with IV conscious sedation as ASA class II designation. Safety time-out was performed to confirm patient ID, procedure to be performed and site of procedure. IV sedation was accomplished with a combination of 3mg of Versed and 50mcg of Fentanyl administered by the RN after DO order, titrated to patient comfort during the course of the procedure while the patient remained responsive to all verbal commands. After local infiltration using 1% lidocaine, under fluoroscopic guidance, a 10-cm RF insulated needle with a 10-mm active tip was positioned parallel to the junction of the right the superior articulating process where the L4 medial branch resides. Needle placement was confirmed with motor stimulation of .5v on the right which produced local stimulation without radicular component. The stimulation was then increased to 1.5v with, once again, only local multifidus stimulation without radicular component. The needle was then removed and the identical procedure was performed along the length of the right L3 medial branch with motor stimulation at .7v on the right. This was then followed by two discreet lesions performed at 80 degrees Celsius for 90 seconds each. The identical procedures were repeated on the left. The patient tolerated the procedure well without signs or symptoms of complications prior to transfer to the recovery area continued monitoring without incident. The patient was then transferred to the recovery area where they were observed for an appropriate period of time after the injection. The patient reported a VAS score of 9 prior to the procedure and a post-procedure VAS of 0. Total Fluoroscopy Time: 15 seconds Total Conscious Sedation Time: 34min POST OP INSTRUCTIONS The patient was provided a Pain Log to continue to record the patient's response to the target-specific procedure prior to the patient's follow-up visit with the referring physician. Additionally, specific post-injection care instructions and a contact number to our office were provided if concerns arise regarding possible complications associated with the procedure are suspected. Bry Marie, DO Complications: none
[2020-01-09] MEDS: MIDAZOLAM 5 MG/5 ML VIAL IV (09:16)
--- NOTE | 2020-01-09 11:51 | PC.NURSE ---
0850: pt tolerated procedure well, some difficulty with moving pt from table to wc. Max assist was required to transfer. returned to procedure room in stable condition, report to CHADD Saucedo
== END 2020-01-09 09:45 | disposition home or self-care (01) ==
LOC: RAD 07:21
PROVIDERS: Family Provider Internal Medicine; PCP Internal Medicine; Referring Provider Internal Medicine; Visit Provider Physical Medicine & Rehabilitation
DX: M47.816 Spondylosis without myelopathy or radiculopathy, lumbar region (principal)
CPT/HCPCS: 64635; 99152; 99153; J2250; J3010

== ENCOUNTER → 2020-06-10 11:36 | Outpatient (CLI) | payer MEDICARE, OTHER, SELFPAY ==
--- NOTE | 2020-06-10 11:37 | DI.RAD.S_ITS ---
PROCEDURE: XR LUMBAR SPINE MIN 4V INDICATIONS: LOW BACK PAIN TECHNIQUE: A total of 4 views of the lumbar spine were acquired. COMPARISON: [facility], CR, XR LUMBAR SPINE MIN 4V, 05/21/2018, 8:33. FINDINGS: Bones: 5 nonrib-bearing vertebrae are present. There is mild convex leftward bony alignment. No vertebral body compression fractures. No suspicious bony lesions. As was previously the case in April of 2018 there is a [id number] degree of degenerative disc disease most prominent at L3-4 and L4-5. Mild grade 1 retrolisthesis of L4 is present in relationship to L3 and L5, as was previously the case. 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 Soft tissues: Overlying bowel gas pattern is normal. No suspicious soft tissue calcifications. Oblique images: No pars defects. IMPRESSION: A compression fractures not seen. No definite interval worsening of the degenerative disc disease previously present. Facet osteoarthritis becomes progressively more prominent from L3 inferiorly and allows the mild subluxation of L 4 in relationship to L3 and L5 as discussed, stable over time. Dictated by: Victor Hugo Higgins M.D. on 06/10/2020 at 13:31 Approved by: Victor Hugo Higgins M.D. on 06/10/2020 at 13:33
== END ==
PROVIDERS: Family Provider Internal Medicine; PCP Internal Medicine; Referring Provider Internal Medicine; Visit Provider Physical Medicine & Rehabilitation
DX: M48.061 Spinal stenosis, lumbar region without neurogenic claudication (principal); M48.07 Spinal stenosis, lumbosacral region; M47.816 Spondylosis without myelopathy or radiculopathy, lumbar region; M47.817 Spondylosis without myelopathy or radiculopathy, lumbosacral region; M51.36 Other intervertebral disc degeneration, lumbar region; M51.37 Other intervertebral disc degeneration, lumbosacral region
CPT/HCPCS: 72110

== ENCOUNTER 2020-06-18 14:30 | Outpatient (RCR) | payer MEDICARE, OTHER, SELFPAY ==
--- NOTE | 2020-06-04 14:04 | PT.OIE ---
Current Diagnoses Spondylosis without myelopathy or radiculopathy, lumbosacral region (06/04/20) Spinal stenosis, lumbar region without neurogenic claudication (06/04/20) Unsteadiness on feet (06/04/20) Past Medical History (Last Reviewed 04/20/20 @ 15:06 by Bry Marie DO) Acromioclavicular joint separation, type 2 (Acute) CAD (coronary artery disease) (Chronic ~2007) Cervical stenosis of spinal canal (Chronic) Chronic back pain (Chronic) Colon polyps (Inactive ~2010) Facet arthropathy, lumbar (Acute) Foraminal stenosis of lumbosacral region (Chronic) Gait instability (Chronic) H/O: stroke (Inactive 04/10/16) History of cardiac monitoring (Acute) Hyperlipidemia (Chronic) Hypertension (Chronic ~2016) Lumbar post-laminectomy syndrome (Chronic) Lumbosacral spondylosis (Chronic) Measles (Resolved) Mumps (Resolved) Osteoarthritis (Chronic) Peripheral neuropathy (Chronic ~1979) Rotator cuff impingement syndrome of right shoulder (Acute) Sick sinus syndrome (Chronic) Skin cancer (Inactive) Spinal stenosis (Chronic) Spinal stenosis of lumbar region without neurogenic claudication (Chronic) Squamous cell skin cancer (Resolved ~2015) Vertigo (Chronic ~2013) Vision disorder (Chronic) Past Surgical History (Last Reviewed 04/20/20 @ 15:06 by Bry Marie DO) S/P cardiac pacemaker procedure (Chronic) Visit Care Team Role Provider Type Dalton Proctor MD Attending Provider Physician Family Provider Primary Care Provider Referring Provider Specialty: Internal Medicine Address: [address] [place] [address], [address], [facility] Email: [email or web address] Physical Therapy Initial Evaluation PT-OP-A Visit Information Start: 06/04/20 13:22 Freq: Status: Active Protocol: Document 06/04/20 09:45 DCW (Rec: 06/04/20 13:34 DCW [id number]) Out-Patient Physical Therapy Visit Information Visit Information Visit Type Initial Evaluation Visit Start Time 09:45 Visit Stop Time 10:20 Total Visit Minutes 35 Visit Number 1 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 Pt notes that he originally hurt his back when he was 17 years old and feel out of a tree. Pt has had low back pain off and on ever since. Notes that in 1988, he did undergo surgery that helped decrease his pain for a number of years, but it has become more prominent over the last decade or two. Pt notes that suddenly about a week ago , he began getting a dull pain in his posterior hip, and severe pain down his left leg and up his left lumbar paraspinals. Pt is currently walking with a cane, which he never used prior to his leg pain, because he feels like his leg will give out at any time. Pt notes he has in the past been diagnosed with stenosis and arthritis, and can occasionally relieve some of his pain by leaning onto his counter top with his hands and performing a mild spinal traction on himself. PT-OP-C Subjective Start: 06/04/20 13:22 Freq: Status: Active Protocol: Document 06/04/20 09:45 [facility] (Rec: 06/04/20 13:34 [facility] [id number]) OP-PT Subjective Patient Comments Patient Comments I was hopful yesterday it seemed to be calming down a little, but it seems like it is even worse today. Patient Reported Progress Worse Patient Questionnaires Oswestry Low Back Index Oswestry Score 42% Oswestry Impairment 40 to 59% Impaired (Score 40- 59) PT-OP-F Manual Assessment Start: 06/04/20 13:22 Freq: Status: Active Protocol: Document 06/04/20 09:45 [facility] (Rec: 06/04/20 13:37 [facility] [id number]) Manual Assessments Soft Tissue Assessment Soft Tissue Mobility Assessment Severe tone left paraspinals, left piriformis, left QL with tenderness to palpation 3/4: Wincing and withdraw. PT-OP-G Mobility & Gait Start: 06/04/20 13:34 Freq: Status: Active Protocol: Document 06/04/20 09:45 DCW (Rec: 06/04/20 13:42 DCW [id number]) OP Gait Assessment Gait Gait Assistance Required: Standby Assistance Distance (Feet) 100 Assistive Devices Assistive Device Straight Cane Gait Deviations General Gait Pattern Antalgic,Decreased Stride Length,Flexed Trunk,Lateral Trunk Lean,Step-to Gait Factors Limiting Gait Function Factors Limiting Gait Function Abnormal Tonal Influences, Decreased Activity Tolerance, Decreased Strength,Pain Comments Gait Comments Pt ambulates with a severe lateral trunk flexion, complaints of left leg pain and weakness. After 100', complains that he feels like his leg will give out if he does not sit down soon. PT-OP-L Special Tests Start: 06/04/20 13:22 Freq: Status: Active Protocol: Document 06/04/20 09:45 DCW (Rec: 06/04/20 13:42 DCW [id number]) Special Tests Lumbar Spine Special Tests Straight Leg Raise Test Results 45? HS tightness, L ipsilateral pain Slump Test Results Positive left Manual Traction Test Results Mild relief Hip Special Tests Piriformis Test Results Left positive RUBEN Test Results Left ipsilateral pain PT-OP-M Strength Start: 06/04/20 13:22 Freq: Status: Active Protocol: Document 06/04/20 09:45 DCW (Rec: 06/04/20 13:43 DCW [id number]) Hip Strength Hip Manual Muscle Testing Right Flexion (L2) 4+ Good+ Abduction 4 Good Adduction 4 Good External Rotation 4- Good- Internal Rotation 4- Good- Left Flexion (L2) 3 Fair Abduction 3+ Fair+ Adduction 3+ Fair+ External Rotation 3- Fair- Internal Rotation 3- Fair- PT-OP-Q Treatments Start: 06/04/20 13:22 Freq: Status: Active Protocol: Document 06/04/20 09:45 DCW (Rec: 06/04/20 13:46 DCW [id number]) Self-Care/Home Management Treatment Education Other Education Seated piriformis stretch, Tennis ball self-massage of piriformis PT-OP-T Assessment and Plan Start: 06/02/20 09:32 Freq: Status: Active Protocol: Document 06/04/20 09:45 DCW (Rec: 06/04/20 14:03 DCW [id number]) Physical Therapy Assessment Rehab Potential Rehabilitation Potential Fair Evaluation Complexity Number of Personal Factors/Comorbidities 3 or More Number of Body Systems Impaired 3 Clinical Presentation at Evaluation Evolving Impairments Impairments Activity Tolerance,Functional Activities,Functional Mobility ,Gait,Posture,ROM,Strength Goals Three Impairment Left leg wekaness secondary to pain and apparent nerve impingement Intermediate Goal (LTG) Pt to improve LE MMT to at least 4/5 bilaterally LTG Duration 08/04/20 Two Impairment Pt unable to amb more than 100 ' without feeling like his leg will collapse Intermediate Goal (LTG) Pt to demonstrate ability to ambulate 300' without an assistive device with no increased pain LTG Duration 08/04/20 One Impairment Pt does not have an appropriate home exercise program Short Term Goal (STG) Pt to be independent and compliant with an appropriate HEP STG Duration 07/04/20 Assessment Summary Assessment Pt presents with significant pain and increased tone long left lumbar paraspinals and left piriformis. Pt unable to tolerate most positioning or testing due to severe pain, making a true DDx difficult. Based on reported symptoms and increased tone, at least some of pt's radicular pain does appear to be due to piriformis syndrome, with a spasming piriformis putting pressure on his sciatic nerve. Pt was shown stretches and how to use a ball for self-STM in an effort to decrease tone, and therefore allow symptoms to decline so further testing can be performed to assess any underlying changes which may be adding to his symptoms. Also discussed pt returning to his PCP if he does not improve at all over the next few days. Pt will likely benefit from skilled therapy focusing on decreasing compression of sciatic nerve, improving gait quality and tolerance, decreasing tone, and pain-control modalities. Physical Therapy Plan Frequency and Duration Frequency of Treatment 2x/Week Duration of Treatment Two months Plan of Care Start Date 06/04/20 Plan of Care End Date 08/04/20 Therapeutic Interventions Therapeutic Interventions Aquatic Therapy,Gait Training, Home Exercise Program,Joint Mobilizations,Manual Therapy, Neuromuscular Re-education, Patient/Caregiver Education, Self-Care/Home Management,Soft Tissue Mobilization, Therapeutic Activities, Therapeutic Exercises Modalities Cold Pack/Ice Massage,Electric Stimulation,Hot Packs, Ultrasound Next Visit Focus/Plan Next Note Type Treatment Note Next Visit Plan STM to lumbar paraspinals and piriformis, gait training, LE strengthening
--- NOTE | 2020-06-04 14:05 | PT.OPPOC ---
Physical, Occupational & Speech Therapy At [facility] Current Diagnoses Spondylosis without myelopathy or radiculopathy, lumbosacral region (06/04/20) Spinal stenosis, lumbar region without neurogenic claudication (06/04/20) Unsteadiness on feet (06/04/20) Visit Care Team Role Provider Type Dalton Proctor MD Attending Provider Physician Family Provider Primary Care Provider Referring Provider Specialty: Internal Medicine Address: [address] [place] [address], [address], [facility] Email: [email or web address] Plan Of Care PT-OP-T Assessment and Plan Start: 06/02/20 09:32 Freq: Status: Active Protocol: Document 06/04/20 09:45 DCW (Rec: 06/04/20 14:03 DCW [id number]) Physical Therapy Assessment Rehab Potential Rehabilitation Potential Fair Evaluation Complexity Number of Personal Factors/Comorbidities 3 or More Number of Body Systems Impaired 3 Clinical Presentation at Evaluation Evolving Impairments Impairments Activity Tolerance,Functional Activities,Functional Mobility ,Gait,Posture,ROM,Strength Goals Three Impairment Left leg wekaness secondary to pain and apparent nerve impingement Intermediate Goal (LTG) Pt to improve LE MMT to at least 4/5 bilaterally LTG Duration 08/04/20 Two Impairment Pt unable to amb more than 100 ' without feeling like his leg will collapse Intermediate Goal (LTG) Pt to demonstrate ability to ambulate 300' without an assistive device with no increased pain LTG Duration 08/04/20 One Impairment Pt does not have an appropriate home exercise program Short Term Goal (STG) Pt to be independent and compliant with an appropriate HEP STG Duration 07/04/20 Assessment Summary Assessment Pt presents with significant pain and increased tone long left lumbar paraspinals and left piriformis. Pt unable to tolerate most positioning or testing due to severe pain, making a true DDx difficult. Based on reported symptoms and increased tone, at least some of pt's radicular pain does appear to be due to piriformis syndrome, with a spasming piriformis putting pressure on his sciatic nerve. Pt was shown stretches and how to use a ball for self-STM in an effort to decrease tone, and therefore allow symptoms to decline so further testing can be performed to assess any underlying changes which may be adding to his symptoms. Also discussed pt returning to his PCP if he does not improve at all over the next few days. Pt will likely benefit from skilled therapy focusing on decreasing compression of sciatic nerve, improving gait quality and tolerance, decreasing tone, and pain-control modalities. Physical Therapy Plan Frequency and Duration Frequency of Treatment 2x/Week Duration of Treatment Two months Plan of Care Start Date 06/04/20 Plan of Care End Date 08/04/20 Therapeutic Interventions Therapeutic Interventions Aquatic Therapy,Gait Training, Home Exercise Program,Joint Mobilizations,Manual Therapy, Neuromuscular Re-education, Patient/Caregiver Education, Self-Care/Home Management,Soft Tissue Mobilization, Therapeutic Activities, Therapeutic Exercises Modalities Cold Pack/Ice Massage,Electric Stimulation,Hot Packs, Ultrasound Next Visit Focus/Plan Next Note Type Treatment Note Next Visit Plan STM to lumbar paraspinals and piriformis, gait training, LE strengthening Plan of Care Dates Plan of Care Start Date 06/04/20 Plan of Care End Date 08/04/20 Electronically Signed by: Eligio Trent, PT 06/04/20 [id number] Please Sign and Return: I have reviewed this Plan of Care and certify that the skilled therapy services above are required to meet the patient?s needs. Physician Signature Date Printed Name and Credentials Clinical Instructor Signature Printed Name and Credentials
--- NOTE | 2020-06-04 14:06 | PT.OPPOC ---
Physical, Occupational & Speech Therapy At [facility] Current Diagnoses Spondylosis without myelopathy or radiculopathy, lumbosacral region (06/04/20) Spinal stenosis, lumbar region without neurogenic claudication (06/04/20) Unsteadiness on feet (06/04/20) Visit Care Team Role Provider Type Dalton Proctor MD Attending Provider Physician Family Provider Primary Care Provider Referring Provider Specialty: Internal Medicine Address: [address] [place] [address], [address], [facility] Email: [email or web address] Plan Of Care PT-OP-T Assessment and Plan Start: 06/02/20 09:32 Freq: Status: Active Protocol: Document 06/04/20 09:45 DCW (Rec: 06/04/20 14:03 DCW [id number]) Physical Therapy Assessment Rehab Potential Rehabilitation Potential Fair Evaluation Complexity Number of Personal Factors/Comorbidities 3 or More Number of Body Systems Impaired 3 Clinical Presentation at Evaluation Evolving Impairments Impairments Activity Tolerance,Functional Activities,Functional Mobility ,Gait,Posture,ROM,Strength Goals Three Impairment Left leg wekaness secondary to pain and apparent nerve impingement Prison Goal (LTG) Pt to improve LE MMT to at least 4/5 bilaterally LTG Duration 08/04/20 Two Impairment Pt unable to amb more than 100 ' without feeling like his leg will collapse Prison Goal (LTG) Pt to demonstrate ability to ambulate 300' without an assistive device with no increased pain LTG Duration 08/04/20 One Impairment Pt does not have an appropriate home exercise program Short Term Goal (STG) Pt to be independent and compliant with an appropriate HEP STG Duration 07/04/20 Assessment Summary Assessment Pt presents with significant pain and increased tone long left lumbar paraspinals and left piriformis. Pt unable to tolerate most positioning or testing due to severe pain, making a true DDx difficult. Based on reported symptoms and increased tone, at least some of pt's radicular pain does appear to be due to piriformis syndrome, with a spasming piriformis putting pressure on his sciatic nerve. Pt was shown stretches and how to use a ball for self-STM in an effort to decrease tone, and therefore allow symptoms to decline so further testing can be performed to assess any underlying changes which may be adding to his symptoms. Also discussed pt returning to his PCP if he does not improve at all over the next few days. Pt will likely benefit from skilled therapy focusing on decreasing compression of sciatic nerve, improving gait quality and tolerance, decreasing tone, and pain-control modalities. Physical Therapy Plan Frequency and Duration Frequency of Treatment 2x/Week Duration of Treatment Two months Plan of Care Start Date 06/04/20 Plan of Care End Date 08/04/20 Therapeutic Interventions Therapeutic Interventions Aquatic Therapy,Gait Training, Home Exercise Program,Joint Mobilizations,Manual Therapy, Neuromuscular Re-education, Patient/Caregiver Education, Self-Care/Home Management,Soft Tissue Mobilization, Therapeutic Activities, Therapeutic Exercises Modalities Cold Pack/Ice Massage,Electric Stimulation,Hot Packs, Ultrasound Next Visit Focus/Plan Next Note Type Treatment Note Next Visit Plan STM to lumbar paraspinals and piriformis, gait training, LE strengthening Plan of Care Dates Plan of Care Start Date 06/04/20 Plan of Care End Date 08/04/20 Electronically Signed by: Eligio Trent, PT 06/04/20 [id number] Please Sign and Return: I have reviewed this Plan of Care and certify that the skilled therapy services above are required to meet the patient?s needs. Physician Signature Date Printed Name and Credentials Clinical Instructor Signature Printed Name and Credentials
--- NOTE | 2020-06-08 11:31 | PT-OP ANOTE ---
Pt cancelled same day, called late am for early pm appt. FIELD TEST ENGINEER called back to educate and discuss the benefits of therapy to assist with pain control. Pt verbalized understanding but decided to stay home today and will return for his next scheduled appt on 06/10/20 with TINY Dixon.
--- NOTE | 2020-06-10 16:19 | PT.OTN ---
Current Diagnoses Spondylosis without myelopathy or radiculopathy, lumbosacral region (06/10/20) Spinal stenosis, lumbar region without neurogenic claudication (06/10/20) Unsteadiness on feet (06/10/20) Physical Therapy Treatment Note PT-OP-A Visit Information Start: 06/04/20 13:22 Freq: Status: Active Protocol: Document 06/10/20 15:15 DCW (Rec: 06/10/20 16:19 DCW [id number]) Out-Patient Physical Therapy Visit Information Visit Information Visit Type Treatment Note Visit Start Time 15:15 Visit Stop Time 16:00 Total Visit Minutes 45 Visit Number 2 Number of PENSIONS RETIREMENT PLAN SPECIALIST Visits 0 Evaluation Information Evaluation Date 06/04/20 PT-OP-B Current Condition Start: 06/04/20 13:22 Freq: Status: Active Protocol: Document 06/04/20 09:45 DCW (Rec: 06/04/20 13:34 DCW [id number]) Current Condition History of Current Condition Onset Date ~one week Current Complaints Severe back pain, immobility History of Current Condition Pt is an 85 year old male presenting with a one week history of severe low back pain with left radicular symptoms. Pt notes that he originally hurt his back when he was 17 years old and feel out of a tree. Pt has had low back pain off and on ever since. Notes that in 1988, he did undergo surgery that helped decrease his pain for a number of years, but it has become more prominent over the last decade or two. Pt notes that suddenly about a week ago , he began getting a dull pain in his posterior hip, and severe pain down his left leg and up his left lumbar paraspinals. Pt is currently walking with a cane, which he never used prior to his leg pain, because he feels like his leg will give out at any time. Pt notes he has in the past been diagnosed with stenosis and arthritis, and can occasionally relieve some of his pain by leaning onto his countertop with his hands and performing a mild spinal traction on himself. PT-OP-C Subjective Start: 06/04/20 13:22 Freq: Status: Active Protocol: Document 06/10/20 15:15 DCW (Rec: 06/10/20 16:19 DCW [id number]) OP-PT Subjective Patient Comments Patient Comments Pt not doing well today, using a wheelchair to come back from the waiting room because he is having such a difficult time standing. PT-OP-F Manual Assessment Start: 06/04/20 13:22 Freq: Status: Active Protocol: Document 06/04/20 09:45 DCW (Rec: 06/04/20 13:37 DCW [id number]) Manual Assessments Soft Tissue Assessment Soft Tissue Mobility Assessment Severe tone left paraspinals, left piriformis, left QL with tenderness to palpation 3/4: Wincing and withdraw. PT-OP-G Mobility & Gait Start: 06/04/20 13:34 Freq: Status: Active Protocol: Document 06/04/20 09:45 DCW (Rec: 06/04/20 13:42 DCW [id number]) OP Gait Assessment Gait Gait Assistance Required: Standby Assistance Distance (Feet) 100 Assistive Devices Assistive Device Straight Cane Gait Deviations General Gait Pattern Antalgic,Decreased Stride Length,Flexed Trunk,Lateral Trunk Lean,Step-to Gait Factors Limiting Gait Function Factors Limiting Gait Function Abnormal Tonal Influences, Decreased Activity Tolerance, Decreased Strength,Pain Comments Gait Comments Pt ambulates with a severe lateral trunk flexion, complaints of left leg pain and weakness. After 100', complains that he feels like his leg will give out if he does not sit down soon. PT-OP-L Special Tests Start: 06/04/20 13:22 Freq: Status: Active Protocol: Document 06/04/20 09:45 DCW (Rec: 06/04/20 13:42 DCW [id number]) Special Tests Lumbar Spine Special Tests Straight Leg Raise Test Results 45? HS tightness, L ipsilateral pain Slump Test Results Positive left Manual Traction Test Results Mild relief Hip Special Tests Piriformis Test Results Left positive RUBEN Test Results Left ipsilateral pain PT-OP-M Strength Start: 06/04/20 13:22 Freq: Status: Active Protocol: Document 06/04/20 09:45 DCW (Rec: 06/04/20 13:43 DCW [id number]) Hip Strength Hip Manual Muscle Testing Right Flexion (L2) 4+ Good+ Abduction 4 Good Adduction 4 Good External Rotation 4- Good- Internal Rotation 4- Good- Left Flexion (L2) 3 Fair Abduction 3+ Fair+ Adduction 3+ Fair+ External Rotation 3- Fair- Internal Rotation 3- Fair- PT-OP-Q Treatments Start: 06/04/20 13:22 Freq: Status: Active Protocol: Document 06/10/20 15:15 DCW (Rec: 06/10/20 16:19 DCW [id number]) Therapeutic Exercises Supine Exercises 1 Supine Exercise Name Piriformis Stretch Side left Manual Therapy Treatment Soft Tissue Mobilization 3 Body Location L Piriformis 2 Body Location B Lumber Paraspinals 1 Body Location B QL Mobilization Type Strumming,Sustained Pressure Body Position Sitting PT-OP-T Assessment and Plan Start: 06/02/20 09:32 Freq: Status: Active Protocol: Document 06/10/20 15:15 DCW (Rec: 06/10/20 16:19 DCW [id number]) Physical Therapy Assessment Impairments Impairments Activity Tolerance,Functional Activities,Functional Mobility ,Gait,Posture,ROM,Strength Goals Three Impairment Left leg weakness secondary to pain and apparent nerve impingement Online Content Developer Goal (LTG) Pt to improve LE MMT to at least 4/5 bilaterally LTG Duration 08/04/20 Two Impairment Pt unable to amb more than 100 ' without feeling like his leg will collapse Alf Goal (LTG) Pt to demonstrate ability to ambulate 300' without an assistive device with no increased pain LTG Duration 08/04/20 One Impairment Pt does not have an appropriate home exercise program Short Term Goal (STG) Pt to be independent and compliant with an appropriate HEP STG Duration 07/04/20 Assessment Summary Assessment Pt tolerated treatment fairly poorly today, had difficulty with and TherEx or mobility, focused almost exclusively on STM in an attempt to decrease paraspinal and piriformis tone . Physical Therapy Plan Frequency and Duration Frequency of Treatment 2x/Week Duration of Treatment Two months Plan of Care Start Date 06/04/20 Plan of Care End Date 08/04/20 Therapeutic Interventions Therapeutic Interventions Aquatic Therapy,Gait Training, Home Exercise Program,Joint Mobilizations,Manual Therapy, Neuromuscular Re-education, Patient/Caregiver Education, Self-Care/Home Management,Soft Tissue Mobilization, Therapeutic Activities, Therapeutic Exercises Modalities Cold Pack/Ice Massage,Electric Stimulation,Hot Packs, Ultrasound Next Visit Focus/Plan Next Note Type Treatment Note Next Visit Plan STM to lumbar paraspinals and piriformis, gait training, LE strengthening
--- NOTE | 2020-06-16 15:15 | PT.OTN ---
Current Diagnoses Spondylosis without myelopathy or radiculopathy, lumbosacral region (06/16/20) Spinal stenosis, lumbar region without neurogenic claudication (06/16/20) Unsteadiness on feet (06/16/20) Physical Therapy Treatment Note PT-OP-A Visit Information Start: 06/04/20 13:22 Freq: Status: Active Protocol: Document 06/16/20 14:30 DCW (Rec: 06/16/20 15:15 DCW [id number]) Out-Patient Physical Therapy Visit Information Visit Information Visit Type Treatment Note Visit Start Time 14:30 Visit Stop Time 15:15 Total Visit Minutes 45 Visit Number [address] INSPECTOR Visits 0 Evaluation Information Evaluation Date 06/04/20 PT-OP-B Current Condition Start: 06/04/20 13:22 Freq: Status: Active Protocol: Document 06/04/20 09:45 DCW (Rec: 06/04/20 13:34 DCW [id number]) Current Condition History of Current Condition Onset Date ~one week Current Complaints Severe back pain, immobility History of Current Condition Pt is an 85 year old male presenting with a one week history of severe low back pain with left radicular symptoms. Pt notes that he originally hurt his back when he was 17 years old and feel out of a tree. Pt has had low back pain off and on ever since. Notes that in 1988, he did undergo surgery that helped decrease his pain for a number of years, but it has become more prominent over the last decade or two. Pt notes that suddenly about a week ago , he began getting a dull pain in his posterior hip, and severe pain down his left leg and up his left lumbar paraspinals. Pt is currently walking with a cane, which he never used prior to his leg pain, because he feels like his leg will give out at any time. Pt notes he has in the past been diagnosed with stenosis and arthritis, and can occasionally relieve some of his pain by leaning onto his countertop with his hands and performing a mild spinal traction on himself. PT-OP-C Subjective Start: 06/04/20 13:22 Freq: Status: Active Protocol: Document 06/16/20 14:30 DCW (Rec: 06/16/20 15:15 DCW [id number]) OP-PT Subjective Patient Comments Patient Comments Pt reports he seems to be getting worse, can barely walk more than five steps. Pt has tried to get in to be seen by Dr Marie, but has so far been unable to make an appointment sooner than 06/29. Does note he felt better following his PT appt last week, but it didn't last. PT-OP-F Manual Assessment Start: 06/04/20 13:22 Freq: Status: Active Protocol: Document 06/04/20 09:45 DCW (Rec: 06/04/20 13:37 DCW [id number]) Manual Assessments Soft Tissue Assessment Soft Tissue Mobility Assessment Severe tone left paraspinals, left piriformis, left QL with tenderness to palpation 3/4: Wincing and withdraw. PT-OP-G Mobility & Gait Start: 06/04/20 13:34 Freq: Status: Active Protocol: Document 06/04/20 09:45 DCW (Rec: 06/04/20 13:42 DCW [id number]) OP Gait Assessment Gait Gait Assistance Required: Standby Assistance Distance (Feet) 100 Assistive Devices Assistive Device Straight Cane Gait Deviations General Gait Pattern Antalgic,Decreased Stride Length,Flexed Trunk,Lateral Trunk Lean,Step-to Gait Factors Limiting Gait Function Factors Limiting Gait Function Abnormal Tonal Influences, Decreased Activity Tolerance, Decreased Strength,Pain Comments Gait Comments Pt ambulates with a severe lateral trunk flexion, complaints of left leg pain and weakness. After 100', complains that he feels like his leg will give out if he does not sit down soon. PT-OP-L Special Tests Start: 06/04/20 13:22 Freq: Status: Active Protocol: Document 06/04/20 09:45 DCW (Rec: 06/04/20 13:42 DCW [id number]) Special Tests Lumbar Spine Special Tests Straight Leg Raise Test Results 45? HS tightness, L ipsilateral pain Slump Test Results Positive left Manual Traction Test Results Mild relief Hip Special Tests Piriformis Test Results Left positive RUBEN Test Results Left ipsilateral pain PT-OP-M Strength Start: 06/04/20 13:22 Freq: Status: Active Protocol: Document 06/04/20 09:45 DCW (Rec: 06/04/20 13:43 DCW [id number]) Hip Strength Hip Manual Muscle Testing Right Flexion (L2) 4+ Good+ Abduction 4 Good Adduction 4 Good External Rotation 4- Good- Internal Rotation 4- Good- Left Flexion (L2) 3 Fair Abduction 3+ Fair+ Adduction 3+ Fair+ External Rotation 3- Fair- Internal Rotation 3- Fair- PT-OP-Q Treatments Start: 06/04/20 13:22 Freq: Status: Active Protocol: Document 06/16/20 14:30 DCW (Rec: 06/16/20 15:15 DCW [id number]) Manual Therapy Treatment Soft Tissue Mobilization 3 Body Location L Piriformis 2 Body Location B Lumber Paraspinals Mobilization Type Sustained Pressure,Trigger Point Release Body Position Sitting 1 Body Location B QL Mobilization Type Strumming,Sustained Pressure Body Position Sitting PT-OP-T Assessment and Plan Start: 06/02/20 09:32 Freq: Status: Active Protocol: Document 06/16/20 14:30 DCW (Rec: 06/16/20 15:15 DCW [id number]) Physical Therapy Assessment Impairments Impairments Activity Tolerance,Functional Activities,Functional Mobility ,Gait,Posture,ROM,Strength Goals Three Impairment Left leg weakness secondary to pain and apparent nerve impingement Sterile Tech Goal (LTG) Pt to improve LE MMT to at least 4/5 bilaterally LTG Duration 08/04/20 Two Impairment Pt unable to amb more than 100 ' without feeling like his leg will collapse Sterile Tech Goal (LTG) Pt to demonstrate ability to ambulate 300' without an assistive device with no increased pain LTG Duration 08/04/20 One Impairment Pt does not have an appropriate home exercise program Short Term Goal (STG) Pt to be independent and compliant with an appropriate HEP STG Duration 07/04/20 Assessment Summary Assessment Pt still very sore, unable to participate in anything other than STM. Trial of e-stim today to hopefully help with pain control. Physical Therapy Plan Frequency and Duration Frequency of Treatment 2x/Week Duration of Treatment Two months Plan of Care Start Date 06/04/20 Plan of Care End Date 08/04/20 Therapeutic Interventions Therapeutic Interventions Aquatic Therapy,Gait Training, Home Exercise Program,Joint Mobilizations,Manual Therapy, Neuromuscular Re-education, Patient/Caregiver Education, Self-Care/Home Management,Soft Tissue Mobilization, Therapeutic Activities, Therapeutic Exercises Modalities Cold Pack/Ice Massage,Electric Stimulation,Hot Packs, Ultrasound Next Visit Focus/Plan Next Note Type Treatment Note Next Visit Plan STM to lumbar paraspinals and piriformis, gait training, LE strengthening
--- NOTE | 2020-06-16 15:16 | PT.OTN ---
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 Pt notes that he originally hurt his back when he was 17 years old and feel out of a tree. Pt has had low back pain off and on ever since. Notes that in 1988, he did undergo surgery that helped decrease his pain for a number of years, but it has become more prominent over the last decade or two. Pt notes that suddenly about a week ago , he began getting a dull pain in his posterior hip, and severe pain down his left leg and up his left lumbar paraspinals. Pt is currently walking with a cane, which he never used prior to his leg pain, because he feels like his leg will give out at any time. Pt notes he has in the past been diagnosed with stenosis and arthritis, and can occasionally relieve some of his pain by leaning onto his countertop with his hands and performing a mild spinal traction on himself. PT-OP-C Subjective Start: 06/04/20 13:22 Freq: Status: Active Protocol: Document 06/16/20 14:30 DCW (Rec: 06/16/20 15:15 DCW [id number]) OP-PT Subjective Patient Comments Patient Comments Pt reports he seems to be getting worse, can barely walk more than five steps. Pt has tried to get in to be seen by Dr Marie, but has so far been unable to make an appointment sooner than 06/29. Does note he felt better following his PT appt last week, but it didn't last. PT-OP-F Manual Assessment Start: 06/04/20 13:22 Freq: Status: Active Protocol: Document 06/04/20 09:45 DCW (Rec: 06/04/20 13:37 DCW [id number]) Manual Assessments Soft Tissue Assessment Soft Tissue Mobility Assessment Severe tone left paraspinals, left piriformis, left QL with tenderness to palpation 3/4: Wincing and withdraw. PT-OP-G Mobility & Gait Start: 06/04/20 13:34 Freq: Status: Active Protocol: Document 06/04/20 09:45 DCW (Rec: 06/04/20 13:42 DCW [id number]) OP Gait Assessment Gait Gait Assistance Required: Standby Assistance Distance (Feet) 100 Assistive Devices Assistive Device Straight Cane Gait Deviations General Gait Pattern Antalgic,Decreased Stride Length,Flexed Trunk,Lateral Trunk Lean,Step-to Gait Factors Limiting Gait Function Factors Limiting Gait Function Abnormal Tonal Influences, Decreased Activity Tolerance, Decreased Strength,Pain Comments Gait Comments Pt ambulates with a severe lateral trunk flexion, complaints of left leg pain and weakness. After 100', complains that he feels like his leg will give out if he does not sit down soon. PT-OP-L Special Tests Start: 06/04/20 13:22 Freq: Status: Active Protocol: Document 06/04/20 09:45 DCW (Rec: 06/04/20 13:42 DCW [id number]) Special Tests Lumbar Spine Special Tests Straight Leg Raise Test Results 45? HS tightness, L ipsilateral pain Slump Test Results Positive left Manual Traction Test Results Mild relief Hip Special Tests Piriformis Test Results Left positive RUBEN Test Results Left ipsilateral pain PT-OP-M Strength Start: 06/04/20 13:22 Freq: Status: Active Protocol: Document 06/04/20 09:45 DCW (Rec: 06/04/20 13:43 DCW [id number]) Hip Strength Hip Manual Muscle Testing Right Flexion (L2) 4+ Good+ Abduction 4 Good Adduction 4 Good External Rotation 4- Good- Internal Rotation 4- Good- Left Flexion (L2) 3 Fair Abduction 3+ Fair+ Adduction 3+ Fair+ External Rotation 3- Fair- Internal Rotation 3- Fair- PT-OP-Q Treatments Start: 06/04/20 13:22 Freq: Status: Active Protocol: Document 06/16/20 14:30 DCW (Rec: 06/16/20 15:15 DCW [id number]) Manual Therapy Treatment Soft Tissue Mobilization 3 Body Location L Piriformis 2 Body Location B Lumber Paraspinals Mobilization Type Sustained Pressure,Trigger Point Release Body Position Sitting 1 Body Location B QL Mobilization Type Strumming,Sustained Pressure Body Position Sitting PT-OP-R Modalities Start: 06/04/20 13:22 Freq: Status: Active Protocol: Document 06/16/20 14:30 DCW (Rec: 06/16/20 15:16 DCW [id number]) Electric Stimulation Electric Stimulation Interferential Current (IFC) Body Location Lumbar spine Duration (Minutes) 15 Cycle Continuous Patient Position Sidelying Combined With Heat/Cold Hot Pack PT-OP-T Assessment and Plan Start: 06/02/20 09:32 Freq: Status: Active Protocol: Document 06/16/20 14:30 DCW (Rec: 06/16/20 15:15 DCW [id number]) Physical Therapy Assessment Impairments Impairments Activity Tolerance,Functional Activities,Functional Mobility ,Gait,Posture,ROM,Strength Goals Three Impairment Left leg weakness secondary to pain and apparent nerve impingement Post Closer Goal (LTG) Pt to improve LE MMT to at least 4/5 bilaterally LTG Duration 08/04/20 Two Impairment Pt unable to amb more than 100 ' without feeling like his leg will collapse Jail Goal (LTG) Pt to demonstrate ability to ambulate 300' without an assistive device with no increased pain LTG Duration 08/04/20 One Impairment Pt does not have an appropriate home exercise program Short Term Goal (STG) Pt to be independent and compliant with an appropriate HEP STG Duration 07/04/20 Assessment Summary Assessment Pt still very sore, unable to participate in anything other than STM. Trial of e-stim today to hopefully help with pain control. Physical Therapy Plan Frequency and Duration Frequency of Treatment 2x/Week Duration of Treatment Two months Plan of Care Start Date 06/04/20 Plan of Care End Date 08/04/20 Therapeutic Interventions Therapeutic Interventions Aquatic Therapy,Gait Training, Home Exercise Program,Joint Mobilizations,Manual Therapy, Neuromuscular Re-education, Patient/Caregiver Education, Self-Care/Home Management,Soft Tissue Mobilization, Therapeutic Activities, Therapeutic Exercises Modalities Cold Pack/Ice Massage,Electric Stimulation,Hot Packs, Ultrasound Next Visit Focus/Plan Next Note Type Treatment Note Next Visit Plan STM to lumbar paraspinals and piriformis, gait training, LE strengthening
--- NOTE | 2020-06-18 15:19 | PT.OTN ---
Current Diagnoses Spondylosis without myelopathy or radiculopathy, lumbosacral region (06/18/20) Spinal stenosis, lumbar region without neurogenic claudication (06/18/20) Unsteadiness on feet (06/18/20) Physical Therapy Treatment Note PT-OP-A Visit Information Start: 06/04/20 13:22 Freq: Status: Active Protocol: Document 06/18/20 14:30 DCW (Rec: 06/18/20 15:18 DCW [id number]) Out-Patient Physical Therapy Visit Information Visit Information Visit Type Treatment Note Visit Start Time 14:30 Visit Stop Time 15:15 Total Visit Minutes 45 Visit Number 4 Number of [employer] Visits 0 Evaluation Information Evaluation Date 06/04/20 PT-OP-B Current Condition Start: 06/04/20 13:22 Freq: Status: Active Protocol: Document 06/04/20 09:45 DCW (Rec: 06/04/20 13:34 DCW [id number]) Current Condition History of Current Condition Onset Date ~one week Current Complaints Severe back pain, immobility History of Current Condition Pt is an 85 year old male presenting with a one week history of severe low back pain with left radicular symptoms. Pt notes that he originally hurt his back when he was 17 years old and feel out of a tree. Pt has had low back pain off and on ever since. Notes that in 1988, he did undergo surgery that helped decrease his pain for a number of years, but it has become more prominent over the last decade or two. Pt notes that suddenly about a week ago , he began getting a dull pain in his posterior hip, and severe pain down his left leg and up his left lumbar paraspinals. Pt is currently walking with a cane, which he never used prior to his leg pain, because he feels like his leg will give out at any time. Pt notes he has in the past been diagnosed with stenosis and arthritis, and can occasionally relieve some of his pain by leaning onto his countertop with his hands and performing a mild spinal traction on himself. PT-OP-C Subjective Start: 06/04/20 13:22 Freq: Status: Active Protocol: Document 06/18/20 14:30 DCW (Rec: 06/18/20 15:18 DCW [id number]) OP-PT Subjective Patient Comments Patient Comments My right leg seems to be getting worse now. I'm n ot sure if it's spreading, or if I'm just compensating and overusing it, but I can barely even take a few steps at this point. PT-OP-F Manual Assessment Start: 06/04/20 13:22 Freq: Status: Active Protocol: Document 06/04/20 09:45 DCW (Rec: 06/04/20 13:37 DCW [id number]) Manual Assessments Soft Tissue Assessment Soft Tissue Mobility Assessment Severe tone left paraspinals, left piriformis, left QL with tenderness to palpation 3/4: Wincing and withdraw. PT-OP-G Mobility & Gait Start: 06/04/20 13:34 Freq: Status: Active Protocol: Document 06/04/20 09:45 DCW (Rec: 06/04/20 13:42 DCW [id number]) OP Gait Assessment Gait Gait Assistance Required: Standby Assistance Distance (Feet) 100 Assistive Devices Assistive Device Straight Cane Gait Deviations General Gait Pattern Antalgic,Decreased Stride Length,Flexed Trunk,Lateral Trunk Lean,Step-to Gait Factors Limiting Gait Function Factors Limiting Gait Function Abnormal Tonal Influences, Decreased Activity Tolerance, Decreased Strength,Pain Comments Gait Comments Pt ambulates with a severe lateral trunk flexion, complaints of left leg pain and weakness. After 100', complains that he feels like his leg will give out if he does not sit down soon. PT-OP-L Special Tests Start: 06/04/20 13:22 Freq: Status: Active Protocol: Document 06/04/20 09:45 DCW (Rec: 06/04/20 13:42 DCW [id number]) Special Tests Lumbar Spine Special Tests Straight Leg Raise Test Results 45? HS tightness, L ipsilateral pain Slump Test Results Positive left Manual Traction Test Results Mild relief Hip Special Tests Piriformis Test Results Left positive RUBEN Test Results Left ipsilateral pain PT-OP-M Strength Start: 06/04/20 13:22 Freq: Status: Active Protocol: Document 06/04/20 09:45 DCW (Rec: 06/04/20 13:43 DCW [id number]) Hip Strength Hip Manual Muscle Testing Right Flexion (L2) 4+ Good+ Abduction 4 Good Adduction 4 Good External Rotation 4- Good- Internal Rotation 4- Good- Left Flexion (L2) 3 Fair Abduction 3+ Fair+ Adduction 3+ Fair+ External Rotation 3- Fair- Internal Rotation 3- Fair- PT-OP-Q Treatments Start: 06/04/20 13:22 Freq: Status: Active Protocol: Document 06/18/20 14:30 DCW (Rec: 06/18/20 15:18 DCW [id number]) Manual Therapy Treatment Soft Tissue Mobilization 3 Body Location L Piriformis 2 Body Location B Lumber Paraspinals Mobilization Type Sustained Pressure,Trigger Point Release Body Position Sitting 1 Body Location B QL Mobilization Type Strumming,Sustained Pressure Body Position Sitting PT-OP-R Modalities Start: 06/04/20 13:22 Freq: Status: Active Protocol: Document 06/16/20 14:30 DCW (Rec: 06/16/20 15:16 DCW [id number]) Electric Stimulation Electric Stimulation Interferential Current (IFC) Body Location Lumbar spine Duration (Minutes) 15 Cycle Continuous Patient Position Sidelying Combined With Heat/Cold Hot Pack PT-OP-T Assessment and Plan Start: 06/02/20 09:32 Freq: Status: Active Protocol: Document 06/18/20 14:30 DCW (Rec: 06/18/20 15:18 DCW [id number]) Physical Therapy Assessment Impairments Impairments Activity Tolerance,Functional Activities,Functional Mobility ,Gait,Posture,ROM,Strength Goals Three Impairment Left leg weakness secondary to pain and apparent nerve impingement Mcfp Goal (LTG) Pt to improve LE MMT to at least 4/5 bilaterally LTG Duration 08/04/20 Two Impairment Pt unable to amb more than 100 ' without feeling like his leg will collapse [employer] 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 Pt will be seeing Dr Marie before he comes to his next appt on 07/03 , will hopefully have more information. Physical Therapy Plan Frequency and Duration Frequency of Treatment 2x/Week Duration of Treatment Two months Plan of Care Start Date 06/04/20 Plan of Care End Date 08/04/20 Therapeutic Interventions Therapeutic Interventions Aquatic Therapy,Gait Training, Home Exercise Program,Joint Mobilizations,Manual Therapy, Neuromuscular Re-education, Patient/Caregiver Education, Self-Care/Home Management,Soft Tissue Mobilization, Therapeutic Activities, Therapeutic Exercises Modalities Cold Pack/Ice Massage,Electric Stimulation,Hot Packs, Ultrasound Next Visit Focus/Plan Next Note Type Treatment Note Next Visit Plan STM to lumbar paraspinals and piriformis, gait training, LE strengthening
--- NOTE | 2020-09-10 14:56 | PT.OPDS ---
Current Diagnoses Spondylosis without myelopathy or radiculopathy, lumbosacral region (06/18/20) Spinal stenosis, lumbar region without neurogenic claudication (06/18/20) Unsteadiness on feet (06/18/20) Visit Care Team Role Provider Type Dalton Proctor MD Attending Provider Physician Family Provider Primary Care Provider Referring Provider Specialty: Internal Medicine Address: [address] [place] [address], [address], [facility] Email: [email or web address] Visit Number Visit Number 4 Discharge Summary PT-OP-B Current Condition Start: 06/04/20 13:22 Freq: Status: Active Protocol: Document 06/04/20 09:45 DCW (Rec: 06/04/20 13:34 DCW [id number]) Current Condition History of Current Condition Onset Date ~one week Current Complaints Severe back pain, immobility History of Current Condition Pt is an 85 year old male presenting with a one week history of severe low back pain with left radicular symptoms. Pt notes that he originally hurt his back when he was 17 years old and feel out of a tree. Pt has had low back pain off and on ever since. Notes that in 1988, he did undergo surgery that helped decrease his pain for a number of years, but it has become more prominent over the last decade or two. Pt notes that suddenly about a week ago , he began getting a dull pain in his posterior hip, and severe pain down his left leg and up his left lumbar paraspinals. Pt is currently walking with a cane, which he never used prior to his leg pain, because he feels like his leg will give out at any time. Pt notes he has in the past been diagnosed with stenosis and arthritis, and can occasionally relieve some of his pain by leaning onto his countertop with his hands and performing a mild spinal traction on himself. PT-OP-C Subjective Start: 06/04/20 13:22 Freq: Status: Active Protocol: Document 06/18/20 14:30 DCW (Rec: 06/18/20 15:18 DCW [id number]) OP-PT Subjective Patient Comments Patient Comments My right leg seems to be getting worse now. I'm n ot sure if it's spreading, or if I'm just compensating and overusing it, but I can barely even take a few steps at this point. PT-OP-F Manual Assessment Start: 06/04/20 13:22 Freq: Status: Active Protocol: Document 06/04/20 09:45 DCW (Rec: 06/04/20 13:37 DCW [id number]) Manual Assessments Soft Tissue Assessment Soft Tissue Mobility Assessment Severe tone left paraspinals, left piriformis, left QL with tenderness to palpation 3/4: Wincing and withdraw. PT-OP-G Mobility & Gait Start: 06/04/20 13:34 Freq: Status: Active Protocol: Document 06/04/20 09:45 DCW (Rec: 06/04/20 13:42 DCW [id number]) OP Gait Assessment Gait Gait Assistance Required: Standby Assistance Distance (Feet) 100 Assistive Devices Assistive Device Straight Cane Gait Deviations General Gait Pattern Antalgic,Decreased Stride Length,Flexed Trunk,Lateral Trunk Lean,Step-to Gait Factors Limiting Gait Function Factors Limiting Gait Function Abnormal Tonal Influences, Decreased Activity Tolerance, Decreased Strength,Pain Comments Gait Comments Pt ambulates with a severe lateral trunk flexion, complaints of left leg pain and weakness. After 100', complains that he feels like his leg will give out if he does not sit down soon. PT-OP-L Special Tests Start: 06/04/20 13:22 Freq: Status: Active Protocol: Document 06/04/20 09:45 DCW (Rec: 06/04/20 13:42 DCW [id number]) Special Tests Lumbar Spine Special Tests Straight Leg Raise Test Results 45? HS tightness, L ipsilateral pain Slump Test Results Positive left Manual Traction Test Results Mild relief Hip Special Tests Piriformis Test Results Left positive RUBEN Test Results Left ipsilateral pain PT-OP-M Strength Start: 06/04/20 13:22 Freq: Status: Active Protocol: Document 06/04/20 09:45 DCW (Rec: 06/04/20 13:43 DCW [id number]) Hip Strength Hip Manual Muscle Testing Right Flexion (L2) 4+ Good+ Abduction 4 Good Adduction 4 Good External Rotation 4- Good- Internal Rotation 4- Good- Left Flexion (L2) 3 Fair Abduction 3+ Fair+ Adduction 3+ Fair+ External Rotation 3- Fair- Internal Rotation 3- Fair- PT-OP-T Assessment and Plan Start: 06/02/20 09:32 Freq: Status: Active Protocol: Document 09/10/20 14:55 DCW (Rec: 09/10/20 14:56 DCW [id number]) Physical Therapy Assessment Assessment Summary Assessment Pt canceled last five scheduled visits, has not made any further follow-up appointments, and has now not been seen in nearly three months. Pt will be discharged from PT at this time, and will require a new referral in order to return to skilled therapy. Physical Therapy Plan Discharge Physical Therapy Discharge Reasons No Longer Attending PT
== END 2020-09-25 09:45 ==
LOC: PHYS 14:30
PROVIDERS: Family Provider Internal Medicine; PCP Internal Medicine; Referring Provider Internal Medicine; Visit Provider Internal Medicine
DX: M48.061 Spinal stenosis, lumbar region without neurogenic claudication (principal); R26.81 Unsteadiness on feet; M47.817 Spondylosis without myelopathy or radiculopathy, lumbosacral region
CPT/HCPCS: 97014; 97110; 97140; 97162; 97535; G0283

== ENCOUNTER → 2020-07-06 13:22 | Outpatient (CLI) | payer MEDICARE, OTHER, SELFPAY ==
[2020-07-06 16:07] LABS: COVID19 -Nasal RAPID Negative (Negative)
== END ==
PROVIDERS: Family Provider Internal Medicine; PCP Internal Medicine; Visit Provider Physical Medicine & Rehabilitation
DX: Z01.812 Encounter for preprocedural laboratory examination (principal); Z20.828 Contact with and (suspected) exposure to other viral communicable diseases
CPT/HCPCS: 87635; C9803

== ENCOUNTER 2020-07-07 13:40 | Outpatient (CLI) | payer MEDICARE, OTHER, SELFPAY ==
[2020-07-07] VITALS (8 sets, daily range): BP systolic 106–142; BP diastolic 56–68; PULSE 60–69; RESP 12–16; TEMP 36.3–36.4; O2SAT 98–100
--- NOTE | 2020-07-07 13:41 | DI.RAD.S_ITS ---
PROCEDURE: PAIN L/S TRANSFORAMINAL INJECT INDICATIONS: SPONDYLOSIS COMPARISON: [facility], , PAIN L/S TRANSFORAMINAL INJECT, 07/30/2019, 15:43. FINDINGS: Fluoroscopic spot filming was performed to verify placement of a spinal needle at the L4-L5 level, as labeled on the films. Appropriate location of the needle tip was confirmed by injection of iodinated contrast. IMPRESSION: Intraprocedural examination within normal limits. Dictated by: Omid Turner M.D. on 07/07/2020 at 14:04 Approved by: Omid Turner M.D. on 07/07/2020 at 14:04
[2020-07-07] MEDS: MIDAZOLAM 5 MG/5 ML VIAL IV (14:33)
[2020-07-07] MEDS: IOPAMIDOL 15 ML VIAL 3 ML INJ (14:37)
[2020-07-07] MEDS: BUPIVACAINE 0.25% (PF) VIAL 2 ML INJ (14:37)
[2020-07-07] MEDS: DEXAMETHASONE 10 MG/ML VIAL 20 MG INJ (14:38)
[2020-07-07] MEDS: BETAMETHASONE 30 MG/5 ML MDV 6 MG INJ (14:38)
--- NOTE | 2020-07-07 14:46 | P.PCN_ITS ---
Date/Time/Diagnoses Date of procedure: 07/07/20 Time of procedure: 14:46 Pre-procedure diagnosis: 1. FORAMINAL STENOSIS WITH LE SYMPTOMS Post-procedure diagnosis: same Procedure Notes Procedure: 1. FLUOROSCOPICALLY GUIDED CONTRAST CONTROLLED TRANSFORAMINAL EPIDURAL STEROID INJECTION - LEFT L4/5 Indications: Chuckie is referred by Dr. Proctor for treatment of Foraminal Stenosis with Left LE Symptoms Physician: Bry Marie Total Fluoroscopy time (seconds): 8 Total sedation minutes: 10 Complications: none Procedure in detail & Post-procedure care: FINDINGS Foraminal Nerve Root Compression secondary to disc disease and facet hypertrophy DESCRIPTION OF PROCEDURE Following review of allergy and review of potential side effects and complications, including, but not necessarily limited to, infection, allergic reaction, local tissue breakdown, stroke, temporary or permanent nerve injury, paralysis, and possible , the patient indicated that the patient understood and agreed to proceed. An informed consent document was signed by the patient, witnessed by a nurse, and placed in the patient's chart. Additionally, other treatment options including medications, modalities, and physical therapy were reviewed with the patient. After review of previous anaesthesic history and IV conscious sedation the patient was deemed safe to proceed with today?s procedure with IV conscious sedation as ASA class II designation. Safety time-out was performed to confirm patient ID, procedure to be performed and site of procedure. IV sedation was accomplished with a combination of 2mg of Versed administered by the RN after DO order, titrated to patient comfort during the course of the procedure while the patient remained responsive to all verbal commands In the prone position following sterile prep and drape of the lumbar region, the left L4/5 posterior neuroforamen was identified fluoroscopically. The skin was anesthetized via a 25-gauge 1.5-inch needle with 1% lidocaine solution. At this point, a 25-gauge 3.5-inch spinal needle was atraumatically introduced and advanced under fluoroscopic guidance through the posterior left L4/5 neuroforamen to approximately the anterior aspect of the canal. Depth was confirmed on lateral view. Following negative aspiration, injection of approximately 1.5 cc of Isovue 200 under live fluoroscopy in the AP view confirmed excellent flow along the nerve root, into the epidural space without vascular or intrathecal uptake observed Radiological data, including multiple fluoroscopic views of the lumbosacral spine, reveal a spinal needle at the left L4/5 posterior neuroforamen. Subsequent views show flow of contrast material flowing superiorly and inferiorly along the nerve root confirming epidural flow. Subsequently, a test dose of 1.5 cc of 1% lidocaine solution was administered and patient was observed for two minutes for signs or symptoms of complications, including abdominal pain, shortness of breath, bilateral upper or lower extremity weakness, nausea and vomiting, prior to steroid injection. At this point, a total of 3cc or 20mg of dexamethasone and 6mg of betamethasone was injected without incident. The procedure tolerated the procedure well without signs or symptoms of complications prior to transfer to the recovery area continued monitoring without incident. The patient was then transferred to the recovery area where they were observed for an appropriate time after the injection. The patient reported a VAS score of 7 prior to the procedure and a post- procedure VAS of 0. POST OP INSTRUCTIONS The patient was provided a Pain Log to continue to record their response to the target-specific procedure prior to follow-up visit with their referring physician. Additionally, specific post-injection care instructions and a contact number to our office were provided if concerns arise regarding possible complications associated with the procedure are suspected.
== END 2020-07-07 15:03 | disposition home or self-care (01) ==
LOC: RAD 13:41
PROVIDERS: Family Provider Internal Medicine; PCP Internal Medicine; Referring Provider Physical Medicine & Rehabilitation; Visit Provider Physical Medicine & Rehabilitation
DX: M48.061 Spinal stenosis, lumbar region without neurogenic claudication (principal); M51.16 Intervertebral disc disorders with radiculopathy, lumbar region
CPT/HCPCS: 64483; 99152; J0702; J1100; J2250; J3010

== ENCOUNTER → 2020-08-19 15:55 | Outpatient (CLI) | payer MEDICARE, OTHER, SELFPAY ==
--- NOTE | 2020-08-19 15:58 | DI.ECHO.S_ITS ---
[facility]---------+ [facility] +---------+ : : [address] : : : : [id number] : : : : Phone: [phone]---------+ Echocardiogram Report + + :Name: RENUKA ARREDONDO Study Date: 08/19/2020 Height: 69 in : :[facility] ReadingLocation: Weight: 168 lb : : Gender: Male BSA: 1.9 m2 : :: 1935 Age: 85 yrs BP: 170/94 mmHg: :Reason For Study: THORACIC AORTIC ECTASIA : :Ordering Physician: CHRISTIAN, : :JOSE LUIS Performed By: Rosi Christine : :Referring: JOSE LUIS GONZALES : + + Interpretation Summary The left ventricle is normal in size. The ejection fraction is estimated to be 55-60%. There has been no significant change in LVEF since the previous exam. The right ventricle is normal in size and function. There is a pacemaker lead in the right ventricle. There is mild mitral regurgitation. Compared to the prior echo study, there has been a decrease in the severity of mitral regurgitation. There is mild aortic regurgitation. Compared to the prior echo study, there has been a decrease in the severity of aortic regurgitation. 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 4.5 cm in diameter. In October 2018, it was 4.7 cm in diameter. Procedure: A two-dimensional transthoracic echocardiogram with color flow and Doppler was performed. The study quality was technically adequate. There is no prior echocardiogram noted for this patient. The patient was in sinus rhythm with heart rates between 60-66 bpm during the exam. Left Ventricle: The left ventricle is normal in size. Proximal septal thickening is noted. There is no echo evidence for significant left ventricular outflow tract obstruction. There is no thrombus. The ejection fraction is estimated to be 55-60%. There has been no significant change since the previous exam. There are no focal wall motion abnormalities. Diastolic parameters suggest a relaxation abnormality of the left ventricle, consistent with probable normal filling pressures. Right Ventricle: The right ventricle is normal in size and function. There is a pacemaker lead in the right ventricle. Atria: Both atria are normal in size. Both atria have remained unchanged in size since the prior echo exam. There is no Doppler evidence for an interatrial shunt. Mitral Valve: The mitral valve leaflets are slightly calcified. There is mild mitral annular calcification. There is mild mitral regurgitation. Compared to the prior echo study, there has been a decrease in the severity of mitral regurgitation. Aortic Valve: The aortic valve is mildly calcified. The aortic valve is trileaflet. The aortic valve opens well. There is no aortic valve stenosis. There is mild aortic regurgitation. Compared to the prior echo study, there has been a decrease in the severity of aortic regurgitation. Tricuspid Valve: The tricuspid valve is normal in structure and function. There is mild tricuspid regurgitation. The right ventricular systolic pressure is estimated to be at least 28 mmHg based on an estimated right atrial pressure of 3 mm Hg. Pulmonic Valve: The pulmonic valve is not well visualized. There is mild pulmonic regurgitation. Great Vessels: The aortic root is mildly dilated. This is unchanged compared to the previous study. 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 The IVC is of normal diameter and collapses greater than 50% with a sniff. This suggests a low right atrial pressure of 3 mm Hg. Pericardium/ Pleura There is no pericardial effusion. There is no pleural effusion. MMode/2D Measurements & Calculations LVIDd: 4.3 cm LVOT diam: 2.3 cm LVIDs: 2.9 cm Ao root diam: 4.2 cm FS: 31.8 % asc Aorta Diam: 4.5 cm IVSd: 0.98 cm Ao Arch Diam (Prox Trans): 2.7 cm LVPWd: 0.96 cm LV martino. diameter/BSA (cm/m^2): 2.2 LV sys. diameter/BSA (cm/m^2): 1.5 LA A2 area: 15.4 cm2 RA long axis: 4.9 cm LA A4 area: 14.9 cm2 RA area: 13.1 cm2 LA length (vol): 5.2 cm RA vol: 29.4 ml LA vol: 37.8 ml RA : 15.3 ml/m2 LA vol index: 19.7 ml/m2 IVC diam: 1.6 cm RVD1 (basal): 3.2 cm TAPSE: 2.3 cm Doppler Measurements & Calculations Ao V2 max: 144.8 cm/sec LVOT Max Dean: 88.8 cm/sec Ao V2 mean: 103.7 cm/sec LV V1 max P.2 mmHg Ao max P.4 mmHg LV V1 VTI: 19.4 cm Ao mean P.7 mmHg BRIDGETTE(I,D): 2.8 cm2 Ao V2 VTI: 29.2 cm BRIDGETTE(V,D): 2.6 cm2 sev ratio: 0.66 BRIDGETTE indexed to BSA (cm^2/m^2): 1.4 MV E max dean: 63.4 cm/sec TR max dean: 251.0 cm/sec MV A max dean: 93.8 cm/sec TR max P.2 mmHg MV E/A: 0.68 PA V2 max: 49.8 cm/sec Med Peak E' Dean: 5.1 cm/sec PA V2 mean: 33.3 cm/sec E/E' med: 12.4 PA mean P.51 mmHg Lat Peak E' Dean: 5.5 cm/sec PA pr(Accel): 25.9 mmHg E/E' lat: 11.4 E/e' average: 11.9 MV dec time: 0.25 sec SV(LVOT): 80.9 ml Reading Physician:11:47 AM
== END ==
PROVIDERS: Family Provider Internal Medicine; PCP Internal Medicine; Referring Provider Internal Medicine Cardiovascular Disease; Visit Provider Internal Medicine Cardiovascular Disease
DX: I08.3 Combined rheumatic disorders of mitral, aortic and tricuspid valves (principal); I77.810 Thoracic aortic ectasia; Z95.0 Presence of cardiac pacemaker
CPT/HCPCS: 93306

== ENCOUNTER → 2020-08-25 09:29 | Outpatient (CLI) | payer MEDICARE, OTHER, SELFPAY ==
--- NOTE | 2020-08-25 09:31 | DI.RAD.S_ITS ---
PROCEDURE: XR ACUTE ABDOMEN SERIES INDICATIONS: diarrhea TECHNIQUE: One view chest and two views of the abdomen were acquired. COMPARISON: [facility], CR, XR CHEST 2 VIEWS, 11/21/2018, 8:01. FINDINGS: Surgical changes and devices: Stable positioning of dual chamber left cardiac pacemaker. Chest: Lungs are clear. Heart size is normal. No pleural effusions. No pneumoperitoneum. Abdomen: Mild fecal loading; otherwise bowel gas pattern is normal. No suspicious calcifications. Visualized solid organ contours appear normal. Bones: No suspicious bony lesions. IMPRESSION: Mild fecal loading. Dictated by: Solomon Sheehan [facility] Interpreted: Sandoval Encarnacion MD on 08/25/2020 at 9:48 Approved by: Sandoval Encarnacion M.D. on 08/25/2020 at 10:09
== END ==
PROVIDERS: Family Provider Internal Medicine; PCP Internal Medicine; Referring Provider Internal Medicine; Visit Provider Internal Medicine
DX: R19.7 Diarrhea, unspecified (principal)
CPT/HCPCS: 74022

== ENCOUNTER → 2020-09-16 06:51 | Outpatient (CLI) | payer MEDICARE, OTHER, SELFPAY ==
[2020-09-16 08:44] LABS: Cholesterol 144 mg/dL (140-199); HDL Cholesterol 39 mg/dL (40-60); LDL Cholesterol Calculated 80 mg/dL (<100); Triglycerides 125 mg/dL (35-150)
== END ==
PROVIDERS: Family Provider Internal Medicine; PCP Internal Medicine; Referring Provider Internal Medicine Cardiovascular Disease; Visit Provider Internal Medicine Cardiovascular Disease
DX: I25.10 Atherosclerotic heart disease of native coronary artery without angina pectoris (principal)
CPT/HCPCS: 36415; 80061

== ENCOUNTER → 2020-12-01 11:08 | Outpatient (CLI) | payer MEDICARE, OTHER, SELFPAY ==
[2020-12-01 12:15] LABS: Add Manual Diff / Slide Review NO; Basophils Absolute Auto 0 /uL (0-100); Basophils Percent Auto 0.3 % (0-2); Eosinophils Absolute Auto 100 /uL (0-450); Eosinophils Percent Auto 1.5 % (2-4); Hemoglobin 13.7 g/dL (13.5-17.5); Lymphocytes Absolute Auto 1700 /uL (1100-4500); Lymphocytes Percent Auto 24.9 % (25-40); Mean Corpuscular HGB Conc 34.2 % (30-36); Mean Corpuscular Volume 96.5 fL (80-100); Monocytes Absolute Auto 700 /uL (0-900); Monocytes Percent Auto 9.8 % (3-14); Neutrophils Absolute Auto 4400 /uL (1500-7000); Neutrophils Percent Auto 63.5 % (50-75); Platelet Count 157 X10^3/uL (150-400); Red Blood Cell Count 4.14 X10^6/uL (4.5-5.9); Red Cell Distribution Width 12.8 % (11.6-14.8); White Blood Cell Count 6.8 X10^3/uL (4.5-11.0)
[2020-12-01 12:43] LABS: BUN Creatinine Ratio 30.2 (6-22); Blood Urea Nitrogen 26 mg/dL (9-20); Calcium 9.9 mg/dL (8.4-10.2); Carbon Dioxide 27 mmol/L (22-32); Chloride 104 mmol/L (98-107); Estimated Glomerular Filt Rate > 60.0 mL/min (>60); Glucose 87 mg/dL (80-110); HEMOLYSIS < 15 (0-50); Potassium 5.3 mmol/L (3.4-5.1); Sodium 139 mmol/L (137-145)
== END ==
PROVIDERS: Family Provider Internal Medicine; PCP Internal Medicine; Referring Provider Orthopaedic Surgery Orthopaedic Surgery of the Spine; Visit Provider Orthopaedic Surgery Orthopaedic Surgery of the Spine
DX: Z01.818 Encounter for other preprocedural examination (principal); Z01.812 Encounter for preprocedural laboratory examination
CPT/HCPCS: 36415; 80048; 85025; 93005

== ENCOUNTER → 2020-12-19 13:56 | Outpatient (CLI) | payer MEDICARE, OTHER, SELFPAY ==
[2020-12-19 14:40] LABS: COVID19 -Nasal RAPID Negative (Negative)
== END ==
PROVIDERS: Family Provider Internal Medicine; PCP Internal Medicine; Referring Provider Physician Assistant; Visit Provider Physician Assistant
DX: Z20.822 Contact with and (suspected) exposure to COVID-19 (principal)
CPT/HCPCS: 87635

== ENCOUNTER 2020-12-21 06:07 | Inpatient (IN) | payer MEDICARE, OTHER, SELFPAY ==
[2020-12-16 12:24] VITALS: BMI 25.7
[2020-12-21] VITALS (16 sets, daily range): BP systolic 102–143; BP diastolic 48–83; PULSE 64–91; RESP 1–18; TEMP 35.8–37.1; O2SAT 94–99; BMI 25.7
[2020-12-21] MEDS: LACTATED RINGERS 1,000 ML 42 ML IV ×2 (07:34→09:56)
--- NOTE | 2020-12-21 07:35 | PM.PREOP ---
Pre-operative Note COVID-19 COVID-19 status: Negative Result date/Date tested (Pos, Neg/Pending): 12/19/20 Interval Note History & Physical reviewed/Exam performed by Physician: Yes Changes to H&P: No
--- NOTE | 2020-12-21 08:16 | SUR.OPER ---
Prone on spine table, head in foam head support, padded chest and pelvic supports, gel pad at knees, lower legs supported by pillows; nipples, genitalia and toes free of pressure, arms secured on foam padded arm boards at <90 degrees abduction. Tape over blanket at thigh secured to table.
[2020-12-21] MEDS: CEFAZOLIN 1 GM VIAL 2 GM IV ×2 (08:42→18:47)
[2020-12-21] MEDS: BUPIVACAINE LIPOSOME 266 MG/20 ML VIAL INJ (08:43)
[2020-12-21] MEDS: BUPIVACAINE 0.5% W/ EPI (PF) 30 ML VIAL INJ (08:43)
--- NOTE | 2020-12-21 11:50 | P.OP_ITS ---
Operative Date/Time/Diagnoses Date of procedure: 12/21/20 Time of procedure: 08:03 Pre-op diagnosis: 1. L3-4, L4-5 spondylolisthesis 2. Spinal stenosis with radiculopathy 3. Hx of laminectomies with epidural scarring and post laminectomy syndrome Post-op diagnosis: same Procedure & Clinicians Procedure: 1. L3-4, L4-5 Postero-lateral and posterior interbody fusion 2. L3-4, L4-5 interbody cage placement. 3. L3-4, L4-5 decompressive laminectomy with bilateral facetecomies 4. L3-4, L4-5 Posterior segmental instrumentation 5. Turrell of bone marrow from iliac crest 6. Utilization of microsurgical technique and operating microscope Same procedure as scheduled: Yes Indications: Patient has been having chronic back pain and worsening lumbar radiculopathy. Patient had previous lumbar laminectomies with recent worsening of back pain and left lower extremity pain weakness and numbness. Patient failed multiple conservative management with worsening pain weakness and numbness in his lower extremity. Patient has been having difficulty performing activity of daily living. After discussing risks benefits of treatment options, patient elected proceed with surgery. Surgeon: Candace Gallardo Materials Planning Analyst: Laci Newton Click Yes if Unassisted: No Anesthesia Type: General Operative Notes Closure Type: primary Specimen(s): none sent Prosthetic devices, grafts, tissues, transplants, or devices: Globus revolve screws, Rise cages Applied: catheter Estimated Blood Loss (mL): 150 Blood products transfused: none Procedure in detail: Patient was seen in the preoperative area. Risks and benefits of the surgery was discussed with the patient. Informed consent was obtained from the patient and placed in the chart. Surgical site was marked. Patient was taken to the operative room. General anesthesia was administered. Prophylactic antibiotic was given to the patient less than 30 min before the incision was made. Patient was placed into a prone position on the Caesar table. Patient's back was then prepped and draped in the sterile fashion. Time- out was performed at this time. Using AP and lateral C-arm imaging the interval between L3-4, L4-5 was identified and marked on patient's back. A 2 inch incision 2 in from midline was made on the left side first. The fascia was incised in line with skin incision. Globus MARS retractors was placed inside the incision and docked onto the L3 and L4 lamina. Using microsurgical technique and operating microscope, a L3 and L4 laminectomy and L3-4, L4-5 facetectomy was performed using a Kerrison rongeur. Patient was found have significant amount of epidural scarring secondary to previous laminectomies. The scar tissue was carefully resected to further decompress the epidural space. The disc space at L3-4, L4-5 was identified. And a total diskectomy was performed at L3-4, L4-5 level. The endplates were decorticated using a rasp and shaver. The total diskectomy and decortication was performed at L3-4, L4-5 level in order to to accomplish a L3- 4, L4-5 fusion. The local bone from the laminectomy and facetectomy was saved for local bone grafting. After the total diskectomy and decortication was completed, Trifecta bone graft material was combined with local bone that was harvested earlier. At this time, a separate skin is incision was made over the iliac crest. A Jamshidi needle was inserted into the iliac crest through a separate skin incision. 5 cc of bone marrow aspiration was obtained through the separate skin incision using a Jamshidi needle from the iliac crest. The bone marrow aspiration was combined with local bone and the Trifecta bone grafting material. The bone grafting material was placed into the L3-4, L4-5 interbody space along with two cages, one expandable cage at each level. The cages were expanded to their maximum height using the torque limiting screwdriver. At this time a mirror image incision was made on the right side. The fascia was incised in line with the skin incision. Globus MARS retractor was inserted and docked onto the L3-4, L4-5 posterolateral gutter. Using the power drill, posterior-lateral decortication was performed at L3-4, L4-5 level until bleeding cortical bone was identified. The remaining bone grafting material was placed into the L3-4, L4-5 posterior lateral gutter he order to accomplish posterolateral fusion at the L3-4, L4-5 levels. Using the double C-arm technique, pedicle screws were placed into the L3, L4, L5 pedicles bilaterally. This was done by placing the Jamshidi needle into the pedicles, then placing the guidewires over the Jamshidi needle, and finally placing the cannulated screws over the guidewires bilaterally. After the pedicle screws were placed, 2 titanium rods was locked into the heads of the pedicle screws using locking caps and torque limiting screwdriver. Total 6 pedicles screws were placed. After all the hardware was placed, and confirmed with AP and lateral C-arm imaging, the wound was then irrigated with sterile normal saline and packed with Ray-Anoop gauze for 3 min to accomplish hemostasis. After the gauze was removed the deep fascia was closed with #1 Vicryl suture. The subcutaneous layer was closed with 2-0 Vicryl. The skin was closed with skin bunny. Patient tolerated the procedure well. There were no complications. Complications: none Post-operative Condition: stable Disposition: PACU Plan for aftercare: Admit to inpatient hospital
--- NOTE | 2020-12-21 11:58 | DI.RAD.S_ITS ---
PROCEDURE: XR LUMBAR SPINE 2-3V INDICATIONS: L3-4, L4-5 TLIF TECHNIQUE: 2 views of the lumbar spine were acquired. COMPARISON: [facility], ANGIE, XR LUMBAR SPINE MIN 4V, 06/10/2020, 11:37. [facility], ANGIE, XR LUMBAR SPINE MIN 4V, 05/21/2018, 8:33. FINDINGS: Intraoperative images of the L3-L5 TLIF and intervertebral body spacers. Pedicle screws project in the expected location. IMPRESSION: L3-L5 pedicle screw fixation. Dictated by: Jarocho Mack M.D. on 12/21/2020 at 12:33 Approved by: Jarocho Mack M.D. on 12/21/2020 at 12:35
[2020-12-21] MEDS: SODIUM CHLORIDE 0.9% 1,000 ML 100 ML IV ×2 (13:39→23:33)
[2020-12-21] MEDS: ACETAMINOPHEN 325 MG TABLET 650 MG PO ×2 (14:56→22:13)
--- NOTE | 2020-12-21 17:00 | PT-IP ANOTE ---
Pt arrived on acute care floor ~1400. Attempted to see pt at 1630 for PT evaluation, but pt was symptomatically hypotensive and diaphoretic sitting EOB (BP 96/55 HR 71). Communicated findings with RN. Will follow up morning of 12/22 to complete evaluation.
[2020-12-21] MEDS: DOCUSATE 100 MG CAPSULE PO (22:12)
[2020-12-21] MEDS: GABAPENTIN 400 MG CAPSULE PO (22:12)
[2020-12-21] MEDS: SENNOSIDES 8.6 MG TABLET 17.2 MG PO (22:12)
[2020-12-22] VITALS (8 sets, daily range): BP systolic 112–128; BP diastolic 63–80; PULSE 79–87; RESP 12–18; TEMP 36.7–37.3; O2SAT 96–99
[2020-12-22] MEDS: CEFAZOLIN 1 GM VIAL 2 GM IV (01:40)
[2020-12-22 05:45] LABS: Hematocrit 33.9 % (41-53); Hemoglobin 11.2 g/dL (13.5-17.5)
--- NOTE | 2020-12-22 08:17 | PM.PNPO.1 ---
Subjective Subjective Date Patient Seen: 12/22/20 Time Patient Seen: 08:17 Interval history: Patient's pain is [id number]. Denies fever or chills. No nausea or vomiting. Patient has his home to assist him. Otherwise without complaints this morning. Exam Vital Signs (past 8 hours): - 12/22/20 05:15 12/22/20 07:30 Temperature 98.3 F 98.8 F Pulse Rate 82 79 Respiratory Rate 12 16 Blood Pressure 119/74 128/68 Pulse Oximetry 97 97 Oxygen Delivery Method Room Air Oxygen Flow Rate 0 Narrative Exam Narrative: A 5-year-old male resting comfortably in bed having breakfast. Patient no apparent distress. Catheter in place. Dressing intact. Motor functions intact bilateral lower extremities. Sensation grossly intact to light touch bilateral lower extremities. Objective Labs Result Diagrams: 12/22/20 05:25 Labs: Laboratory Results - last 24 hr 12/22/20 05:25 Hgb 11.2 L Hct 33.9 L PFSH Medical History Acromioclavicular joint separation, type 2 CAD (coronary artery disease) (~2007) Cervical stenosis of spinal canal Chronic back pain Colon polyps (~2010) CVA (cerebral vascular accident) (2015) Discoloration of skin Facet arthropathy, lumbar Foraminal stenosis of lumbosacral region Gait instability H/O: stroke (04/10/16) Hyperlipidemia Hypertension (~2016) Leg pain, bilateral Lumbar post-laminectomy syndrome Lumbosacral spondylosis Measles Mumps Neuropathy Osteoarthritis PAD (peripheral artery disease) Peripheral neuropathy (~1979) Rotator cuff impingement syndrome of right shoulder Sick sinus syndrome Skin cancer Skin infection Spinal stenosis Spinal stenosis of lumbar region without neurogenic claudication Spondylolisthesis at L4-L5 level Squamous cell skin cancer (~2015) Syncope Vertigo (~2013) Vision disorder Surgical History History of lumbar laminectomy (1988) History of lumbar laminectomy (1952) History of surgery (2007) History of surgery (1952) History of vasectomy Hx of bilateral cataract extraction 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 Mother No problems noted. Brother Diabetes mellitus Hypertension Hyperlipidemia Grandfather No problems noted. 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 Mobilize with physical therapy. Limit bending, twisting, lifting. Possible discharge home tomorrow.
[2020-12-22] MEDS: ATORVASTATIN 20 MG TABLET 40 MG PO (09:17)
[2020-12-22] MEDS: DOCUSATE 100 MG CAPSULE PO ×2 (09:17→20:17)
[2020-12-22] MEDS: METOPROLOL ER 25 MG TABLET PO (09:18)
[2020-12-22] MEDS: GABAPENTIN 400 MG CAPSULE PO ×2 (09:18→20:17)
[2020-12-22] MEDS: LOSARTAN 50 MG TABLET 100 MG PO (09:19)
--- NOTE | 2020-12-22 10:49 | OT.IP.EVAL ---
Current Diagnoses Spondylolisthesis, lumbar region (12/21/20) Other spondylosis with radiculopathy, lumbosacral region (12/21/20) Spinal stenosis, lumbar region without neurogenic claudication (12/21/20) Surgery Performed Operation Date: 12/21/20 07:45 Actual Procedures p L3-4, L4-5 TLIF with posterior instrumentation(Not Applicable) - Candace Gallardo MD Past Medical History (Last Reviewed 12/22/20 @ 08:18 by Davidson Knowles PA-C) Acromioclavicular joint separation, type 2 CAD (coronary artery disease) (~2007) Cervical stenosis of spinal canal Chronic back pain Colon polyps (~2010) CVA (cerebral vascular accident) (2015) Discoloration of skin Facet arthropathy, lumbar Foraminal stenosis of lumbosacral region Gait instability H/O: stroke (04/10/16) Hyperlipidemia Hypertension (~2016) Leg pain, bilateral Lumbar post-laminectomy syndrome Lumbosacral spondylosis Measles Mumps Neuropathy Osteoarthritis PAD (peripheral artery disease) Peripheral neuropathy (~1979) Rotator cuff impingement syndrome of right shoulder Sick sinus syndrome Skin cancer Skin infection Spinal stenosis Spinal stenosis of lumbar region without neurogenic claudication Spondylolisthesis at L4-L5 level Squamous cell skin cancer (~2015) Syncope Vertigo (~2013) Vision disorder Surgical History (Last Reviewed 12/22/20 @ 08:18 by Davidson Knowles PA-C) History of lumbar laminectomy (1988) History of lumbar laminectomy (1952) History of surgery (2007) History of surgery (1952) History of vasectomy Hx of bilateral cataract extraction 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 Pt states could only stand for 10 minutes at a time. Activities of Daily Living and IADL's Pt states was completely independent with all his ADL's . Social History Household Members spouse Living Arrangements House Number of Floors (Floors) Two Floors Number of Stairs To Enter/Railing? NO steps to enter from the back to bedroom,living, and kitchen areas. Pt has 10 step with right rail going up to his office. Pt states will not being going upstairs initially. Home Environment Standard Height Toilet,Walk in Shower,Built-In Shower Seat Home Equipment Four Wheel Walker,Straight Cane,Hand Held Shower,Sagger Preparer, Grab Bars In Shower M2 OT-IP Current Condition Start: 12/22/20 12:04 Freq: Status: Active Protocol: Document 12/22/20 10:03 [facility] (Rec: 12/22/20 12:23 [facility] [id number]) Occupational Therapy Current Condition Current Condition Evaluation Date 12/22/20 Treatment Diagnosis s/p L3-4, L4-5 TLIF with post. instr Diagnosis Onset Date 12/21/20 Post Operative Precautions Lumbar Precautions Log Roll,No Twisting,Limit Bending,Lifting Restriction of 10 lbs,Gait Belt above Incisional Area M3 OT- IP Subjective and Pain Start: 12/22/20 12:04 Freq: Status: Active Protocol: Document 12/22/20 10:03 [facility] (Rec: 12/22/20 12:23 [facility] [id number]) OT- Subjective Occupational Therapy Visit Type Type Initial Evaluation Visit Start Time 10:03 Visit Stop Time 10:49 Total Visit Minutes 46 Occupational Therapy Visit Comments Patient Comments Pt agreed to get up. Patient/Caregiver Goals To go home. OT Pain Assessment Pain When Pain Assessed At Rest Pain Present Pain Present Pain Reported Location Back Intensity 4 Scale Used Numeric (0 - 10) M4 OT- IP ADL's Start: 12/22/20 12:04 Freq: Status: Active Protocol: Document 12/22/20 10:03 [facility] (Rec: 12/22/20 12:23 [facility] [id number]) OT [id number] Comments OT Self-Feeding Comments NOt at meal time. OT ADL-Grooming General Evaluation Grooming Ability Standby Assistance Areas Needing Assistance Retrieving/Set-up of Grooming Items Comments OT Grooming Comments Set up while seated. OT ADL-Oral Care General Eval Oral Care Ability Independent Comments Oral Care Comments Educated if standing, best for pt to spit into a cup to best follow his back precautions. OT ADL-Dressing General Eval Lower Body Dressing Ability Maximum Assistance Areas Needing Assistance Socks Comments OT Dressing Comments Pt insistent that his to assist him with all his needs. OT ADL-Toileting General Evaluation Toileting Ability Total Assistance Comments OT Toileting Comments ledezma in place OT ADL-Bathing Comments OT Bathing Comments Not performed. M5 OT- IP IADL's Start: 12/22/20 12:04 Freq: Status: Active Protocol: Document 12/22/20 10:03 [facility] (Rec: 12/22/20 12:23 [facility] [id number]) OT-Instrumental Activities of Daily Living Home Safety Awareness Home Safety Comments Pt a bit groggy, will need assist and supervision for all ADl and mobility needs. M6 OT- IP Functional Cognition Start: 12/22/20 12:04 Freq: Status: Active Protocol: Document 12/22/20 10:03 [facility] (Rec: 12/22/20 12:23 [facility] [id number]) Cognitive Factors Limiting Selfcare Function Cognitive Ability Level of Alertness Alert Patient Orientation Name,Place,Situation Attention Span Ability Capable of Focused Attention, Capable of Sustained Attention Ability to Follow Commands Able to Follow One Step Commands Safety Awareness Decreased Recall of Precautions,Decreased Ability to Apply Precautions Cognitive Comments Cognitive Assessment Comments Pt a bit groggy and needing cues to recall and follow back precautions. Pt insistent that his to be able to assist him for all needs at home. OT- Vision and Hearing OT- Hearing Assessment OT- Hearing Assessment WFL OT- Vision Assessment Visual Acuity Glasses For Reading M7 OT- IP Mobility and Balance Start: 12/22/20 12:04 Freq: Status: Active Protocol: Document 12/22/20 10:03 [facility] (Rec: 12/22/20 12:23 [facility] [id number]) OT- Bed Mobility Assessment Rolling Type of Rolling Roll to Right Level of Assistance Minimal Assistance Supine to Sit Supine to Sit Assist Minimal Assistance Sit to Supine Sit to Supine Assist Minimal Assistance Scooting Scooting to Edge of Bed Moderate Assistance,1 Person Assistance OT-Transfer Assessment Sit to and From Stand Sit to and from Stand Moderate Assistance Transfers Transfer Ability Moderate Assistance Technique Transfer Destination Bed,Chair Transfer Technique Stand Step Pivot Devices Transfer Assistive Devices Gait Belt,Front Wheeled Walker Comments Mobility Comments MODA to stand and cues to push up from the bed, assist for balance and to help guide the FWW to transfer to the recliner. Pt too tired to do more at this time. OT- Gait Assessment Comments Gait Ability Comments Transfer only at this time. OT- Balance Assessment Sitting Balance and Reactions Static Sitting Balance Ability Good Dynamic Sitting Balance Ability Fair Standing Balance and Reactions Static Standing Balance Ability Poor M8 OT- IP Objective Assessments Start: 12/22/20 12:04 Freq: Status: Active Protocol: Document 12/22/20 10:03 [facility] (Rec: 12/22/20 12:23 [facility] [id number]) OT Gross Range of Motion Upper Extremity Range of Motion Assessment Within Functional Limits OT-Muscle Tone Assessment Muscle Tone WNL Yes M9 OT- IP Assessment and Plan Start: 12/22/20 12:04 Freq: Status: Active Protocol: Document 12/22/20 10:03 [facility] (Rec: 12/22/20 12:23 [facility] [id number]) OT Summary Assessment and Plan Potential Rehabilitation Potential Good Analytic Complexity at Evaluation Low Summary OT Impairments Pain,Strength,Balance, Functional Cognition, Functional Mobility,Grooming, Dressing,Toileting,Bathing, Toilet Transfers,Shower Transfers,Activity Tolerance Progress Towards Goals Slow Progress due to Pain,Slow Progress due to Medical Issues,Slow Progress due to Activity Tolerance,Slow Progress due to Cognition Assessment Summary Pt low complexity and main barriers are weakness in his legs, difficulty with transitions and needing extensive assist for all ADl and functional mobility needs. Pending caregiver training, progress and medical stability , pt may need skilled rehab. Per pt, pt's only able to provide minimal lifting assist for his at home. Goals Grooming Goal Independent Dressing Goal Independent Toileting Goal Independent Bathing Goal Independent Toilet Transfer Goal Independent Shower Transfer Goal Independent Patient/Caregiver Education Goal Demonstrate Post-Op Precautions,Caregiver Independent Assisting Patient Days to Meet Goals 10 Frequency of Treatment Frequency Of Treatment Once a Day Treatment Plan OT Treatment Plan ADL Training,Functional Cognition Training,Functional Mobility,Patient/Family Education,Discharge Planning Other Treatment Recommendations and Next Stand at sink for grooming Treatment Focus needs. Discharge Recommendations OT Discharge Recommendations Home vs SNF Home Equipment Needs FWW, shower chair Transportation Needs at Discharge Wheelchair/Cabulance
--- NOTE | 2020-12-22 11:27 | PT.IIE ---
Current Diagnoses Spondylolisthesis, lumbar region (12/21/20) Other spondylosis with radiculopathy, lumbosacral region (12/21/20) Spinal stenosis, lumbar region without neurogenic claudication (12/21/20) Surgery Performed Operation Date: 12/21/20 07:45 Actual Procedures p L3-4, L4-5 TLIF with posterior instrumentation(Not Applicable) - Candace Gallardo MD Surgical History (Last Reviewed 12/22/20 @ 08:18 by Davidson Knowles PA-C) History of lumbar laminectomy (1988) History of lumbar laminectomy (1952) History of surgery (2007) History of surgery (1952) History of vasectomy Hx of bilateral cataract extraction 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) Medical History (Last Reviewed 12/22/20 @ 08:18 by Davidson Knowles PA-C) Acromioclavicular joint separation, type 2 CAD (coronary artery disease) (~2007) Cervical stenosis of spinal canal Chronic back pain Colon polyps (~2010) CVA (cerebral vascular accident) (2015) Discoloration of skin Facet arthropathy, lumbar Foraminal stenosis of lumbosacral region Gait instability H/O: stroke (04/10/16) Hyperlipidemia Hypertension (~2016) Leg pain, bilateral Lumbar post-laminectomy syndrome Lumbosacral spondylosis Measles Mumps Neuropathy Osteoarthritis PAD (peripheral artery disease) Peripheral neuropathy (~1979) Rotator cuff impingement syndrome of right shoulder Sick sinus syndrome Skin cancer Skin infection Spinal stenosis Spinal stenosis of lumbar region without neurogenic claudication Spondylolisthesis at L4-L5 level Squamous cell skin cancer (~2015) Syncope Vertigo (~2013) Vision disorder Physical Therapy Inpatient Evaluation/Re-Eval M1 PT/OT-IP Prior Functional Status Start: 12/21/20 12:25 Freq: NEEDED Status: Active Protocol: Document 12/22/20 11:27 AW (Rec: 12/22/20 12:40 AW [id number]) Medical Review Prior Functional Status Medical History Reviewed Yes Communication Pt is able to make his needs known Mobility and Gait Pt states he uses a SPC outside and tends to stay close to furniture inside. He will occasionally go on a grocery shopping trip but tends to use the motorized carts when he does. Activities of Daily Living and IADL's Pt reports independent with ADL's. He drives. He and his share housekeeping responsibilities. Social History Household Members spouse Living Arrangements House Number of Floors (Floors) Two Floors Number of Stairs To Enter/Railing? Pt hammer in the garage and then walks through a covered breezeway 20 feet to the back door which has a level entrance. His office is on the second level but he will not need to go upstairs when he goes home. 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 His will be able to provide some assist at home. His son, Yasir, also lives in [facility]. He works during the day but would be able to assist when not at work. M2 PT-IP Current Condition Start: 12/21/20 12:25 Freq: NEEDED Status: Active Protocol: Document 12/22/20 11:27 AW (Rec: 12/22/20 12:40 AW [id number]) Physical Therapy Current Condition Current Condition Evaluation Date 12/22/20 Treatment Diagnosis L3-4 L4-5 TLIF; difficulty in walking Onset Date 12/21/20 Precautions Lumbar Precautions Log Roll,No Twisting,Limit Bending,Lifting Restriction of 10 lbs,Gait Belt above Incisional Area M3 PT-IP Subjective Start: 12/21/20 12:25 Freq: NEEDED Status: Active Protocol: Document 12/22/20 11:27 AW (Rec: 12/22/20 12:40 AW [id number]) Subjective Physical Therapy Visit Type Type Initial Evaluation Visit Start Time 11:11 Visit Stop Time 11:27 Total Visit Minutes 16 Notes Saw pt briefly at 1630 yesterday but he was hypotensive sitting EOB and needed to return to supine. Returned today to finish mobility assessment but pt was unable to tolerate standing > 1 minute. Number of OB TECH Visits 0 Physical Therapy Visit Comments Patient Comments Pt is willing to work with PT Patient Goals Pt hopes to return home with spouse support Therapy Pain Assessment Pain When Pain Assessed During Mobility Pain Present Pain Present Pain Reported Location Back Intensity 7 Scale Used 4/10 at rest; 7/10 in standing Pain Management Techniques Modification of Treatment, Timing of Activity with Medications M4 PT-IP Mobility and Gait Start: 12/21/20 12:25 Freq: NEEDED Status: Active Protocol: Document 12/22/20 11:27 AW (Rec: 12/22/20 12:40 AW [id number]) PT-Bed Mobility Assessment Rolling Level of Assist Moderate Assistance,1 Person Assistance Supine to Sit Supine to Sit Moderate Assistance,1 Person Assistance,Bedrails PT-Transfer Assessment Sit to and From Stand Sit to and from Stand Maximum Assistance,1 Person Assistance,Use of Upper Extremities Equipment Transfer Assistive Device Gait Belt,Front Wheeled Walker Orthotic/Prosthetic Devices or Brace: No Comments Mobility Comments Pt seen for brief assessment on afternoon of 12/21 when he required mod assist for bed mobility and then was symptomatically hypotensive so evaluation was delayed. Today , pt was sitting up in the chair as PT arrived. He had transferred with OT. After seated assessment, pt agreed to mobilize. He attempted to stand, requirng max cues to scoot to EOC and use BUE to push off the chair but was unsuccessful first attempt. Second attempt required max assist, verbal and tactile cues for knee extension and assist to move hands from the chair to walker handles. He was able to stand and take small marching steps in place but reported sharply increased pain and needed to sit after standing <1 minute. Discussed pain control needs with pt and the relationship with mobility independence. Reported findings to RN. Pt was left with call light and tray table in reach. Gait Assessment Comments Gait Comments Pt unable at this time. Stair Climbing Assessment Comments Stair Climbing Comments Not assessed. No need to manage stairs at home. PT-Balance Assessment Sitting Balance and Reactions Static Sitting Balance Ability Good Dynamic Sitting Balance Ability Fair Standing Balance and Reactions Static Standing Balance Ability Poor Device Used FWW Balance Tests Single Limb Standing 1 sec RLE and LLE M5 PT-IP Objective Assessments Start: 12/21/20 12:25 Freq: NEEDED Status: Active Protocol: Document 12/22/20 11:27 AW (Rec: 12/22/20 12:40 AW [id number]) Orientation Orientation/Cognition Level of Alertness Confusional State Orientation Name,Month,Place,Situation Language Function Ability No Deficits Noted Safety Awareness Decreased Safety Awareness Memory Description Short Term Impaired Gross Range of Motion Lower Extremity ROM Assessment Within Functional Limits Strength Lower Extremity Strength Assessment Bilaterally Impaired Hip R 3+/5; L 3/5 Knee R 4/5; L 4-/5 Ankle B 4-/5 Sensation Assessment Sensation Gross Sensation Right LE Impaired,Left LE Impaired Light Touch Impaired Proprioception (Position) Impaired Sensation Description Numbness Comments Sensation Comments Peripheral neuropathy chronically affecting BLE up to ankles Muscle Tone Muscle Tone WNL Yes M6 PT-IP Treatment Start: 12/21/20 12:25 Freq: NEEDED Status: Active Protocol: Document 12/22/20 11:27 AW (Rec: 12/22/20 12:40 AW [id number]) Physical Therapy Treatment Education Education Provided Precautions,Weight Bearing Status,Post-Op Packet,Safety Other Treatments Other Treatment Performed Pt able to recall all three precautions M7 PT-IP Assessment and Plan Start: 12/21/20 12:25 Freq: NEEDED Status: Active Protocol: Document 12/22/20 11:27 AW (Rec: 12/22/20 12:40 AW [id number]) PT Summary Assessment and Plan Potential Rehabilitation Potential Good Status of Condition at Evaluation Evolving Summary Impairments Pain,ROM,Strength,Balance, Sensation,Cognition,Bed Mobility,Transfers,Gait, Activity Tolerance Assessment Summary Chuckie is an 85 yo man seen for PT evaluation on POD1 following L3-4 L4-5 TLIF. He is reportedly modified independent at baseline with use of SPC but he reports limited standing tolerance up to about 10 minutes due to back and BLE pain. Evaluation was limited due to pt's pain response and inability to tolerate standing >1 minute. He present with weakness (left more affected than right) and some confusion affecting his mobility. Pt may require SNF rehab depending on progress before transitioning back to home. PT will continue to assess. If pt going home, PT will conduct caregiver training though pt's may not be able to provide much physical assist. Goals Bed Mobility Goal Standby Assistance Transfer Goal Standby Assistance,Front Wheeled Walker Gait Goal Standby Assistance,Front Wheel Walker Gait Distance 100 Days to Meet Goals 5 Frequency of Treatment Frequency Of Treatment Twice a Day Treatment Plan Physical Therapy Treatment Plan Bed Mobility Training,Transfer Training,Gait Training, Therapeutic Exercise,Balance Retraining,Post Op Education, Discharge Planning,Hot or Cold Pack,Neuromuscular Re-ed, Coordination Retraining Other Recommendations and Next Treatment transfers, standing tolerance, Focus gait as able Precautions Lumbar Precautions Log Roll,No Twisting,Limit Bending,Lifting Restriction of 10 lbs,Gait Belt above Incisional Area Recommendations To Nursing Amount of Assist Needed 1 Person Assist Discharge Recommendations PT Discharge Recommendations Home vs SNF Other Discharge Recommendations SNF vs home with assist and HH depending on prgoress Transportation Needs at Discharge Wheelchair/Cabulance
[2020-12-22] MEDS: ACETAMINOPHEN 325 MG TABLET 650 MG PO (12:10)
--- NOTE | 2020-12-22 12:45 | PT.IPTN ---
Current Diagnoses Spondylolisthesis, lumbar region (12/21/20) Other spondylosis with radiculopathy, lumbosacral region (12/21/20) Spinal stenosis, lumbar region without neurogenic claudication (12/21/20) Surgery Performed Operation Date: 12/21/20 07:45 Actual Procedures p L3-4, L4-5 TLIF with posterior instrumentation(Not Applicable) - Candace Gallardo MD Physical Therapy Treatment Note M2 PT-IP Current Condition Start: 12/21/20 12:25 Freq: NEEDED Status: Active Protocol: Document 12/22/20 11:27 AW (Rec: 12/22/20 12:40 AW [id number]) Physical Therapy Current Condition Current Condition Evaluation Date 12/22/20 Treatment Diagnosis L3-4 L4-5 TLIF; difficulty in walking Onset Date 12/21/20 Precautions Lumbar Precautions Log Roll,No Twisting,Limit Bending,Lifting Restriction of 10 lbs,Gait Belt above Incisional Area M3 PT-IP Subjective Start: 12/21/20 12:25 Freq: NEEDED Status: Active Protocol: Document 12/22/20 12:45 AB (Rec: 12/22/20 14:14 AB [id number]) Subjective Physical Therapy Visit Type Type Treatment Note Visit Start Time 12:45 Visit Stop Time 13:20 Total Visit Minutes 35 Number of BUDGET CONTROLLER Visits 0 Physical Therapy Visit Comments Patient Comments pt is agreeable to do PT Therapy Pain Assessment Pain When Pain Assessed At Rest Pain Present Pain Present Pain Reported Location Back Intensity 6 M4 PT-IP Mobility and Gait Start: 12/21/20 12:25 Freq: NEEDED Status: Active Protocol: Document 12/22/20 12:45 AB (Rec: 12/22/20 14:14 AB [id number]) PT-Bed Mobility Assessment Rolling Type of Rolling Log Rolling Sit to Supine Sit to Supine Moderate Assistance,1 Person Assistance Scooting Scooting Up and Down in Bed Moderate Assistance PT-Transfer Assessment Sit to and From Stand Sit to and from Stand Maximum Assistance,1 Person Assistance,Use of Upper Extremities Equipment Transfer Assistive Device Gait Belt,Front Wheeled Walker Orthotic/Prosthetic Devices or Brace: No Transfers Transfer Destination Bed Transfer Technique Stand Step Pivot Transfer Ability Level of Assist Moderate Assistance,Maximum Assistance,1 Person Assistance ,2 Person Assistance,Use of Upper Extremities Comments Mobility Comments pt sitting on chair and agreed to do PT. Bp sitting on chair: 126/59. completed sit to stand max A and cues. educated pt on sit to stand techniques and completed sit to stand again and was steadier with initial standing but continues to require max A and max cues. instructed to sit down. BP checked again: 123/61. NAC in to assist. pt completed sit to stand max A and max cues. pt ambulated in room using FWW mod to max A ~ 4 ft with chair follow. pt requested to sit down and stated that he feels his legs are going to give out. pt rested. requested to go back to bed. completed sit to stand from chair again max A x 1-2. pt seems to be getting tired and c/o increase pain. completed step transfer to bed max A and cues. completed sit to supine mod A with LE and max cues. positioned in bed. call light and table placed within reach. informed pt regarding SNF rehab at this time and understood. spouse came in at end of tx session and informed regarding pt's mobility and SNF rehab at this time but if pt progresses, will conduct caregiver training and agreed. pt's spouse uses a tripod cane for ambulation and may be limited with assistance that can be provided to the pt. Gait Assessment Gait Gait Assistance Required: Moderate Assistance,Maximum Assistance,1 Person Assist Distance (Feet) 5 Able to Maintain Weight Bearing Status Yes During Gait Assistive Devices Assistive Device Gait Belt,Front Wheeled Walker Orthotic/Prosthetic Devices or Brace: No Gait Deviations General Gait Pattern Antalgic,Decreased Stride Length,Decreased Feet Clearance,Step-to Gait Factors Limiting Gait Function Factors Limiting Gait Function Decreased Activity Tolerance, Decreased Strength,Limited Range of Motion,Pain,Poor Balance M5 PT-IP Objective Assessments Start: 12/21/20 12:25 Freq: NEEDED Status: Active Protocol: Document 12/22/20 11:27 AW (Rec: 12/22/20 12:40 AW [id number]) Orientation Orientation/Cognition Level of Alertness Confusional State Orientation Name,Month,Place,Situation Language Function Ability No Deficits Noted Safety Awareness Decreased Safety Awareness Memory Description Short Term Impaired Gross Range of Motion Lower Extremity ROM Assessment Within Functional Limits Strength Lower Extremity Strength Assessment Bilaterally Impaired Hip R 3+/5; L 3/5 Knee R 4/5; L 4-/5 Ankle B 4-/5 Sensation Assessment Sensation Gross Sensation Right LE Impaired,Left LE Impaired Light Touch Impaired Proprioception (Position) Impaired Sensation Description Numbness Comments Sensation Comments Peripheral neuropathy chronically affecting BLE up to ankles Muscle Tone Muscle Tone WNL Yes M6 PT-IP Treatment Start: 12/21/20 12:25 Freq: NEEDED Status: Active Protocol: Document 12/22/20 12:45 AB (Rec: 12/22/20 14:14 AB [id number]) Physical Therapy Treatment Education Education Provided Precautions,Safety M7 PT-IP Assessment and Plan Start: 12/21/20 12:25 Freq: NEEDED Status: Active Protocol: Document 12/22/20 12:45 AB (Rec: 12/22/20 14:14 AB [id number]) PT Summary Assessment and Plan Potential Rehabilitation Potential Good Summary Impairments Pain,ROM,Strength,Balance, Coordination,Cognition,Bed Mobility,Transfers,Gait, Activity Tolerance Progress Towards Goals Slow Progress due to Pain,Slow Progress due to Activity Tolerance Assessment Summary pt requiring max A with mobility at this time and unable to ambulate much. c/o increase pain with mobility. pt will require SNF rehab at this time. spouse may be limited with assistance that she can provide to pt. will conduct caregiver training when appropriate. will continue to assess pt's mobility. Goals Bed Mobility Goal Standby Assistance Transfer Goal Standby Assistance,Front Wheeled Walker Gait Goal Standby Assistance,Front Wheel Walker Gait Distance 100 Days to Meet Goals 5 Frequency of Treatment Frequency Of Treatment Twice a Day Treatment Plan Physical Therapy Treatment Plan Bed Mobility Training,Transfer Training,Gait Training, Therapeutic Exercise,Balance Retraining,Post Op Education, Discharge Planning,Hot or Cold Pack,Neuromuscular Re-ed, Coordination Retraining Precautions Lumbar Precautions Log Roll,No Twisting,Limit Bending,Lifting Restriction of 10 lbs,Gait Belt above Incisional Area Recommendations To Nursing Amount of Assist Needed 2 Person Assist Discharge Recommendations PT Discharge Recommendations SNF Rehab Transportation Needs at Discharge Wheelchair/Cabulance
[2020-12-22] MEDS: HYDROCODONE/ACET 5/325 TABLET 2 TAB PO ×2 (13:41→20:17)
--- NOTE | 2020-12-22 17:18 | CM.DANOTE ---
DCP Assessement; Patient is an 85 year-old male admitted for a translaminar Interbody fusion/laminotomy. PCP is Dr. Dalton Proctor. Primary payer is Medicare and [employer]. Physical therapy is recommending SNF placement. TEXTILES SALES REPRESENTATIVE student met with patient at bedside he was alert and oriented. TEXTILES SALES REPRESENTATIVE provided education on role of social work in discharge planning. 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 Later in day met with patient again he is open to a SNF placement for rehab. Called Sarah at [facility] to review for acceptance if need at time of D/C. PLAN: CM Team to follow closely home vs SNF. ANDREA Sood MSW Student Discharge Planning/Care Management CM Discharge Assessment Start: 12/22/20 11:48 Freq: Status: Active Protocol: Document 12/22/20 11:48 AL (Rec: 12/22/20 11:50 AL [id number]) Discharge Planning Assessment Assigned Treer ANDREA Escobedo Student Contact Information Jeni Moseley Advance Directives? Yes Advance Directives on File Yes: Dr. Proctor's office has on file History Provided By Patient,Medical Record Has Patient been admitted in last 30 No days? Prior Living Arrangements House Household Members spouse Type of transporation used prior to Drives own vehicle admit Independent with ADL's Yes Is patient alert and oriented? Yes Caregiver for Another No DME Already Rented / Owned FWW / Walker,Cane Barriers to Discharge No Discharge Plan Home Transportation Arrangement Patients Jeni will provide transportation from facility Whiteboard Updated in Patient Room with Yes name and ext. # of Treer Review Status In Process Pre-Anesthesia Assessment Start: 12/14/20 09:54 Freq: Status: Complete Protocol: Document 12/16/20 12:24 CAB (Rec: 12/16/20 12:36 CAB [id number]) Pre-Anesthesia Assessment Patient Information Reviewed Via Chart Review,Phone Assessment Assessment Completed With Patient Diagnostic Results BMP/CMP,CBC,EKG Comment Labs/EKG @ [facility] 12/01/20 COVID screen @ [facility] 12/19/20 Primary Care Provider Dalton Proctor Seen Specialist in Last 12 Months Yes Specialist Seen Disability Specialist,Orthopedist Primary Language Russian Endoscopy Technician Required No Height 175.26 cm Weight 78.925 kg Body Mass Index (BMI) 25.7 Hearing Ability Normal Visual Assist Glasses Dentition Type Full- Upper Barriers to Learning None Hx Anesthesia Reactions No Hx Family Anesthesia Reaction No Hx Malignant Hyperthermia No Hx Blood Transfusions No Hx Blood Transfusion Reaction No Anesthesia Review Requested Yes: Surgeon requested re: Cardiac history alcohol intake current alcohol intake frequency a few times a month Smoking Status Former smoker Substance Use Type does not use Pain Present Pain Reported Musculoskeletal Symptoms Back Pain,Difficulty Walking History of Falling (Recent or History of No ) Patient is completely paralyzed or No completely immobile Prosthesis or Orthotic Device Cane Mental Status Oriented to own ability Is patient on oxygen? No Does patient have OSEI/SOB No Hx Sleep Apnea No CPAP/BIPAP use not prescribed Currently Taking a Beta Manda No Can You Climb a Flight of Stairs Without Yes SOB Hx Chest Pain No Hx SOB No Hx Syncope or Dizziness No Anti-Coagulant Therapy Yes: Plavix-pt stopped 12/14/20 Has a Disability Specialist Yes: Dr. Walker-visit 09/17/20 Hx Pacemaker/ICD Yes Pacemaker Rep Required? No: Form scanned and put in surgery folder for dos Cardiac Clearance Received Yes Comment Cardiac records scanned Diet Type At Home Vegetarian dysphagia No Urinary Catheter Present No Hx Urinary Self Catheterization No Diabetes No Hx Drug Resistant Organism No Presence of External or Internal Medical Yes: Pacemaker, cardiac stent, Devices telly eye lens Have you had any close contact with No someone diagnosed with COVID-19? Marital Status Lives With spouse Prior Living Arrangements House Support System Spouse Does the Patient Have Assistance After Yes Surgery Patient Discharge Plan Description Return Home Comment Pt advised 1-2 day length of stay per surgeon Feels Safe in Current Environment Yes Been Physically Hurt or Threatened By a No Person in Current Environment Do you have thoughts of harming yourself None or others? Are you currently considering suicide? No Do you have a plan to hurt yourself or No Plan others? Do You Have Any Spiritual Beliefs That No May Affect Your HC Choices? Do You Have Any Cultural Practices That No May Affect Your HC Choices? Who Can We Speak to About Patient's Care Family, friends Identifying Code for Release of Patient Declines to issue Information Health Care Proxy/Next of Kin Jeni () Health Care Proxy Emergency Contact Name Jeni () Yasir (son) Emergency Contact Phone Number Jeni: [phone] Yasir: [phone] Advance Directives? Yes Power of Master Mechanic Yes Power of Master Mechanic Name Jeni Ryder Power of Master Mechanic PAC Instructions Durable medical equipment, Medications to take/avoid, Nasal antibiotic,No ETOH/ petroleum product on skin DOS, NPO,Post-op transportation,Pre -surgical wash,Sensory aids, Sturdy shoes/comfortable clothes,Do not bring valuables and remove jewelry
[2020-12-22] MEDS: GABAPENTIN 100 MG CAPSULE PO (20:17)
[2020-12-22] MEDS: SODIUM CHLORIDE 0.9% FLUSH 10 ML IV (20:17)
[2020-12-22] MEDS: SENNOSIDES 8.6 MG TABLET 17.2 MG PO (20:17)
[2020-12-23] VITALS (9 sets, daily range): BP systolic 94–126; BP diastolic 51–79; PULSE 70–88; RESP 12–17; TEMP 36.6–37.1; O2SAT 93–97
--- NOTE | 2020-12-23 07:30 | PM.PNPO.1 ---
Subjective Subjective Date Patient Seen: 12/23/20 Time Patient Seen: 07:30 Interval history: Patient states he is doing well overall and has mild discomfort at rest. At this time the patient states his pain is 4/10 in intensity and he notes that the pain is exacerbated with activity. He reports good sensation throughout the bilateral lower extremities in notes that he has been working with physical therapy successfully on ambulation with the assistance of a front wheel walker. This time the patient denies fever, chills, nausea, chest pain, shortness of breath, or urinary retention. Exam Vital Signs (past 8 hours): - 12/23/20 00:31 12/23/20 05:00 Temperature 98.1 F 98.2 F Pulse Rate 79 79 Respiratory Rate 14 12 Blood Pressure 112/71 125/78 Pulse Oximetry 96 96 Oxygen Delivery Method Room Air Oxygen Flow Rate 0 Narrative Exam Narrative: 85-year-old male postop day 2. Patient is resting comfortably in bed, is in no acute distress, is alert and oriented x3. Skin is warm and dry, skin surrounding the incision site is free of erythema, warmth, induration, or discharge. Dressing over the incision site is clean, dry, and intact. Good sensation appreciated throughout the bilateral lower extremities light touch. Slight discomfort appreciated to palpation along the lateral aspect of the left thigh. Ankle dorsiflexion, plantar flexion, eversion, inversion performed bilaterally without difficulty or discomfort. Palpable pulses appreciated, capillary refill less than 2 seconds. Calves are soft nontender, negative Homans sign. No other signs of DVT appreciated. Const General: cooperative, healthy appearing and comfortable Resp Effort & Inspection: normal respiratory effort and able to speak in complete sentences Skin General: no rashes or lesions noted Objective Labs Result Diagrams: 12/22/20 05:25 [facility] Medical History Acromioclavicular joint separation, type 2 CAD (coronary artery disease) (~2007) Cervical stenosis of spinal canal Chronic back pain Colon polyps (~2010) CVA (cerebral vascular accident) (2015) Discoloration of skin Facet arthropathy, lumbar Foraminal stenosis of lumbosacral region Gait instability H/O: stroke (04/10/16) Hyperlipidemia Hypertension (~2016) Leg pain, bilateral Lumbar post-laminectomy syndrome Lumbosacral spondylosis Measles Mumps Neuropathy Osteoarthritis PAD (peripheral artery disease) Peripheral neuropathy (~1979) Rotator cuff impingement syndrome of right shoulder Sick sinus syndrome Skin cancer Skin infection Spinal stenosis Spinal stenosis of lumbar region without neurogenic claudication Spondylolisthesis at L4-L5 level Squamous cell skin cancer (~2015) Syncope Vertigo (~2013) Vision disorder Surgical History History of lumbar laminectomy (1988) History of lumbar laminectomy (1952) History of surgery (2007) History of surgery (1952) History of vasectomy Hx of bilateral cataract extraction 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 Mother No problems noted. Brother Diabetes mellitus Hypertension Hyperlipidemia Grandfather No problems noted. 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 travel history: other leisure activities: music and other Smoking Status: Former smoker Tobacco: How many years used: 10 Smokeless tobacco user: other quit status: quit date established alcohol intake: current substance use type: does not use Assessment & Plan Post-op Postoperative Procedures: Procedures Operation Date: 12/21/20 07:45 Actual Procedures Side Surgeon p L3-4, L4-5 TLIF with posterior instrumentation Not Applicable Candace Gallardo MD Postoperative day: 2 Postoperative status: doing well Postoperative plan: ambulate Postoperative plan narrative: Patient is to continue working on ambulation with the assistance of a front wheeled walker with physical therapy. Patient is to continue current pain management regimen as it is adequately controlling his pain level at this time. Sequential compression devices are to be continued for DVT prophylaxis. Catheter is to be removed today. Time Spent With Patient Time with patient: less than 15 minutes
[2020-12-23] MEDS: DOCUSATE 100 MG CAPSULE PO ×2 (08:00→21:51)
[2020-12-23] MEDS: SODIUM CHLORIDE 0.9% FLUSH 10 ML IV ×2 (08:00→21:51)
[2020-12-23] MEDS: LOSARTAN 50 MG TABLET 100 MG PO (08:00)
[2020-12-23] MEDS: METOPROLOL ER 25 MG TABLET PO (08:01)
[2020-12-23] MEDS: HYDROCODONE/ACET 5/325 TABLET 2 TAB PO ×2 (08:01→13:00)
[2020-12-23] MEDS: ATORVASTATIN 20 MG TABLET 40 MG PO (08:01)
[2020-12-23] MEDS: GABAPENTIN 400 MG CAPSULE PO ×2 (08:01→21:51)
--- NOTE | 2020-12-23 10:55 | PT.IPTN ---
Current Diagnoses Spondylolisthesis, lumbar region (12/21/20) Other spondylosis with radiculopathy, lumbosacral region (12/21/20) Spinal stenosis, lumbar region without neurogenic claudication (12/21/20) Surgery Performed Operation Date: 12/21/20 07:45 Actual Procedures p L3-4, L4-5 TLIF with posterior instrumentation(Not Applicable) - Candace Gallardo MD Physical Therapy Treatment Note M2 PT-IP Current Condition Start: 12/21/20 12:25 Freq: NEEDED Status: Active Protocol: Document 12/22/20 11:27 AW (Rec: 12/22/20 12:40 AW [id number]) Physical Therapy Current Condition Current Condition Evaluation Date 12/22/20 Treatment Diagnosis L3-4 L4-5 TLIF; difficulty in walking Onset Date 12/21/20 Precautions Lumbar Precautions Log Roll,No Twisting,Limit Bending,Lifting Restriction of 10 lbs,Gait Belt above Incisional Area M3 PT-IP Subjective Start: 12/21/20 12:25 Freq: NEEDED Status: Active Protocol: Document 12/23/20 10:30 SP (Rec: 12/23/20 13:18 SP [id number]) Subjective Physical Therapy Visit Type Type Treatment Note Visit Start Time 10:30 Visit Stop Time 10:55 Total Visit Minutes 25 Notes Vitals taken: supine BP 111/66 SaO2 97% on RA, seated BP 123/69 HR 98, post mobility in supine BP 127/71. Number of DATA ACQUISITION TECHNICIAN Visits 1 Physical Therapy Visit Comments Patient Comments Pt agreeable to working with therapy. Patient Goals Pt agreeable to going to rehab to improve strength before returning home. Therapy Pain Assessment Pain When Pain Assessed During Mobility Pain Present Pain Present Pain Reported Location Back Intensity 6 Scale Used Numeric (0 - 10) Description With Movement Pain Behaviors Facial Grimacing Pain Management Techniques Modification of Treatment,Re- positioning,Timing of Activity with Medications M4 PT-IP Mobility and Gait Start: 12/21/20 12:25 Freq: NEEDED Status: Active Protocol: Document 12/23/20 10:30 SP (Rec: 12/23/20 13:18 SP [id number]) PT-Bed Mobility Assessment Rolling Type of Rolling Log Rolling,Bilateral Level of Assist Minimal Assistance,1 Person Assistance Supine to Sit Supine to Sit Moderate Assistance,1 Person Assistance,Head of Bed Elevated,Bedrails Sit to Supine Sit to Supine Moderate Assistance,1 Person Assistance,Bedrails Scooting Scooting to Edge of Bed Contact Guard Assistance Scooting Up and Down in Bed Moderate Assistance PT-Transfer Assessment Sit to and From Stand Sit to and from Stand Maximum Assistance,1 Person Assistance,Use of Upper Extremities Equipment Transfer Assistive Device Gait Belt,Front Wheeled Walker Orthotic/Prosthetic Devices or Brace: No Transfers Transfer Destination Bed,Chair Transfer Technique Stand Step Pivot Transfer Ability Level of Assist Moderate Assistance,1 Person Assistance,Use of Upper Extremities Comments Mobility Comments Pt inclined in bed when arrived. LR Min A for trunk support, Mod A R SL > sit, scoot to EOB CGA, Sit>stand heavy use of BUE WB and cued for transition to FWW Max A x1 with intermittent cuing for upright posture, cued wt shift pre gait for awareness of stability . SPT bed>chair using FWW Mod A x1 cuing for centering and hand placement, Amina descent into chair. Pt required 2 min rest in chair Sit>stand Mod A x1, ambulated to closet intermittent cuing for upright posture and occasional forward to decrease retro lean Min-Mod A x1 using FWW step over step patterning w/chair trailing by nurse due to decreased strength and activity tolerance, Min A to sit back in chair. Sit>stand Mod A, SPT to bed using fWW Min-Mod A x1 max cuing for body and FWW spacial awareness forward at times COG over TYREL to decrease retro lean. Sit> supine Mod A for BLE support in bed. Mod A x1 to lateral scoot trunk to center in bed. Pt had call light all needs in reach with bed alarmed before left. DATA ACQUISITION TECHNICIAN provided ADMITTED ATTORNEYS and nurse verbal progress in mobility still recommending tranfers only and 2 person for safety support. Gait Assessment Gait Gait Assistance Required: Moderate Assistance,1 Person Assist Distance (Feet) 10 Able to Maintain Weight Bearing Status Yes During Gait Assistive Devices Assistive Device Gait Belt,Front Wheeled Walker Orthotic/Prosthetic Devices or Brace: No Gait Deviations General Gait Pattern Antalgic,Decreased Stride Length,Decreased Feet Clearance,Flexed Trunk Factors Limiting Gait Function Factors Limiting Gait Function Decreased Activity Tolerance, Decreased Strength,Limited Range of Motion,Pain,Poor Balance,Poor Safety Awareness Comments Gait Comments See mobility comments. Stair Climbing Assessment Comments Stair Climbing Comments Not assessed. No need to manage stairs at home. PT-Balance Assessment Sitting Balance and Reactions Static Sitting Balance Ability Good Dynamic Sitting Balance Ability Fair Standing Balance and Reactions Static Standing Balance Ability Poor Dynamic Standing Balance Ability Poor Device Used FWW M5 PT-IP Objective Assessments Start: 12/21/20 12:25 Freq: NEEDED Status: Active Protocol: Document 12/22/20 11:27 AW (Rec: 12/22/20 12:40 AW [id number]) Orientation Orientation/Cognition Level of Alertness Confusional State Orientation Name,Month,Place,Situation Language Function Ability No Deficits Noted Safety Awareness Decreased Safety Awareness Memory Description Short Term Impaired Gross Range of Motion Lower Extremity ROM Assessment Within Functional Limits Strength Lower Extremity Strength Assessment Bilaterally Impaired Hip R 3+/5; L 3/5 Knee R 4/5; L 4-/5 Ankle B 4-/5 Sensation Assessment Sensation Gross Sensation Right LE Impaired,Left LE Impaired Light Touch Impaired Proprioception (Position) Impaired Sensation Description Numbness Comments Sensation Comments Peripheral neuropathy chronically affecting BLE up to ankles Muscle Tone Muscle Tone WNL Yes M6 PT-IP Treatment Start: 12/21/20 12:25 Freq: NEEDED Status: Active Protocol: Document 12/23/20 10:30 SP (Rec: 12/23/20 13:18 SP [id number]) Physical Therapy Treatment Education Education Provided Precautions,Safety M7 PT-IP Assessment and Plan Start: 12/21/20 12:25 Freq: NEEDED Status: Active Protocol: Document 12/23/20 10:30 SP (Rec: 12/23/20 13:18 SP [id number]) PT Summary Assessment and Plan Potential Rehabilitation Potential Good Status of Condition at Evaluation Evolving Summary Impairments Pain,ROM,Strength,Balance, Coordination,Cognition,Bed Mobility,Transfers,Gait, Activity Tolerance Progress Towards Goals Progressing Toward Goals,Slow Progress due to Pain,Slow Progress due to Activity Tolerance Assessment Summary Pt required Mod A during bed mobility, Max> Mod A during sit<>stand, Mod A during transfer and gait using FWW w/ chair trailing with intermittent cuing for tall forward posture. pt will require and is agreeable to SNF rehab at this time. spouse may be limited with assistance. Goals Bed Mobility Goal Standby Assistance Transfer Goal Standby Assistance,Front Wheeled Walker Gait Goal Standby Assistance,Front Wheel Walker Gait Distance 100 Days to Meet Goals 5 Frequency of Treatment Frequency Of Treatment Twice a Day Treatment Plan Physical Therapy Treatment Plan Bed Mobility Training,Transfer Training,Gait Training, Therapeutic Exercise,Balance Retraining,Post Op Education, Discharge Planning,Hot or Cold Pack,Neuromuscular Re-ed, Coordination Retraining Other Recommendations and Next Treatment bed mobiltiy, transfers, gait, Focus sit<>Stands for LE/trunk strengthening. Precautions Lumbar Precautions Log Roll,No Twisting,Limit Bending,Lifting Restriction of 10 lbs,Gait Belt above Incisional Area Recommendations To Nursing Amount of Assist Needed 2 Person Assist Discharge Recommendations PT Discharge Recommendations SNF Rehab Transportation Needs at Discharge Wheelchair/Cabulance
--- NOTE | 2020-12-23 14:10 | OT.IP.TRT ---
Current Diagnoses Spondylolisthesis, lumbar region (12/21/20) Other spondylosis with radiculopathy, lumbosacral region (12/21/20) Spinal stenosis, lumbar region without neurogenic claudication (12/21/20) Surgery Performed Operation Date: 12/21/20 07:45 Actual Procedures p L3-4, L4-5 TLIF with posterior instrumentation(Not Applicable) - Candace Gallardo MD Occupational Therapy Treatment Note M2 OT-IP Current Condition Start: 12/22/20 12:04 Freq: Status: Active Protocol: Document 12/22/20 10:03 [facility] (Rec: 12/22/20 12:23 [facility] [id number]) Occupational Therapy Current Condition Current Condition Evaluation Date 12/22/20 Treatment Diagnosis s/p L3-4, L4-5 TLIF with post. instr Diagnosis Onset Date 12/21/20 Post Operative Precautions Lumbar Precautions Log Roll,No Twisting,Limit Bending,Lifting Restriction of 10 lbs,Gait Belt above Incisional Area M3 OT- IP Subjective and Pain Start: 12/22/20 12:04 Freq: Status: Active Protocol: Document 12/23/20 14:13 [facility] (Rec: 12/23/20 14:23 [facility] [id number]) OT- Subjective Occupational Therapy Visit Type Type Treatment Note Visit Start Time 13:41 Visit Stop Time 14:10 Total Visit Minutes 29 Occupational Therapy Visit Comments Patient Comments Pt very drowsy and had to wake up. Pt's present in the room. Patient/Caregiver Goals Pt wanting to go home , but realizes would be best to go to skilled rehab first as pt's just had arm surgery and not able to do much lifting assist for pt. OT Pain Assessment Pain When Pain Assessed At Rest Pain Present Pain Present Pain Reported Location Back Intensity 5 Scale Used Numeric (0 - 10) M5 OT- IP IADL's Start: 12/22/20 12:04 Freq: Status: Active Protocol: Document 12/22/20 10:03 [facility] (Rec: 12/22/20 12:23 [facility] [id number]) OT-Instrumental Activities of Daily Living Home Safety Awareness Home Safety Comments Pt a bit groggy, will need assist and superivision for all ADl and mobility needs. M6 OT- IP Functional Cognition Start: 12/22/20 12:04 Freq: Status: Active Protocol: Document 12/23/20 14:13 [facility] (Rec: 12/23/20 14:23 [facility] [id number]) Cognitive Factors Limiting Selfcare Function Cognitive Ability Level of Alertness Alert,Drowsy Ability to Follow Commands Able to Follow One Step Commands with Increased Time, Able to Follow One Step Commands with Repetition Cognitive Comments Cognitive Assessment Comments Pt very drowsy and needing repeated cues to follow. M7 OT- IP Mobility and Balance Start: 12/22/20 12:04 Freq: Status: Active Protocol: Document 12/23/20 14:13 [facility] (Rec: 12/23/20 14:23 [facility] [id number]) OT- Bed Mobility Assessment Rolling Type of Rolling Roll to Right Level of Assistance Moderate Assistance Supine to Sit Supine to Sit Assist Moderate Assistance Sit to Supine Sit to Supine Assist Moderate Assistance Scooting Scooting to Edge of Bed Moderate Assistance OT-Transfer Assessment Sit to and From Stand Sit to and from Stand Maximum Assistance Comments Mobility Comments MAX AX 1 to stand and not wanting to take any steps, but agreed to side step to the head of the bed with MODAx1 and FWW. Pt needing MODA to help scoot each leg forwards when coming to the edge of the bed. Pt needing assist to help get trunk up from supine, and assist for legs up when getting back into bed. OT- Balance Assessment Sitting Balance and Reactions Static Sitting Balance Ability Good Dynamic Sitting Balance Ability Fair Standing Balance and Reactions Static Standing Balance Ability Poor M8 OT- IP Objective Assessments Start: 12/22/20 12:04 Freq: Status: Active Protocol: Document 12/22/20 10:03 [facility] (Rec: 12/22/20 12:23 [facility] [id number]) OT Gross Range of Motion Upper Extremity Range of Motion Assessment Within Functional Limits OT-Muscle Tone Assessment Muscle Tone WNL Yes M9 OT- IP Assessment and Plan Start: 12/22/20 12:04 Freq: Status: Active Protocol: Document 12/23/20 14:13 [facility] (Rec: 12/23/20 14:23 [facility] [id number]) OT Summary Assessment and Plan Potential Rehabilitation Potential Good Analytic Complexity at Evaluation Low Summary OT Impairments Pain,Strength,Balance, Functional Cognition, Functional Mobility,Grooming, Dressing,Toileting,Bathing, Toilet Transfers,Shower Transfers,Activity Tolerance Progress Towards Goals Slow Progress due to Pain,Slow Progress due to Medical Issues,Slow Progress due to Activity Tolerance,Slow Progress due to Cognition Assessment Summary Pt very groggy today and having more difficulty to come to stand and needing MAX AX 1 . Pts present and not aware of plan for possible skilled rehab. Based on pt's current status, pt's not able to provide enough assistance and in addition would need another person to assist for ADL and mobility needs. Pt's states that she has just had arm surgery and not able to lift as well. Therefore both pt and agreed it woud be best to go to skilled rehab. Spoke to case management of pt 's request to talk about discharge plans. Goals Grooming Goal Independent Dressing Goal Independent Toileting Goal Independent Bathing Goal Independent Toilet Transfer Goal Independent Shower Transfer Goal Independent Patient/Caregiver Education Goal Demonstrate Post-Op Precautions,Caregiver Independent Assisting Patient Days to Meet Goals 20 Frequency of Treatment Frequency Of Treatment Once a Day Treatment Plan OT Treatment Plan ADL Training,Functional Cognition Training,Functional Mobility,Patient/Family Education,Discharge Planning Other Treatment Recommendations and Next Stand at sink for grooming Treatment Focus needs. Discharge Recommendations OT Discharge Recommendations SNF Rehab Home Equipment Needs defer to SNF Transportation Needs at Discharge Wheelchair/Cabulance
--- NOTE | 2020-12-23 14:57 | PC.NURSE ---
Addendum entered by Marie Yap R.N. 12/23/20 15:03: Voicemail left for provider to inform him of this finding. Original Note: Pt attempted to void standing at bedside at 1200, without success. Bladder scan revealed 86mL and 96mL per [facility]. Pt attempted to void again sitting in bed, pt refused to stand at bedside, again without success. Bladder scan revealed 84mL. Pt denies any urgency.
--- NOTE | 2020-12-23 14:58 | CM.DPC ---
DCP SNF Planning: Per Ortho PA, spoke to pt and spouse and also per PT/OT recommendation of SNF and Ortho also feels SNF needed at d/c. SW updated on [facility] acceptance and Medicare coverage by tomorrow. Ortho feels pt may be stable for d/c tomorrow. Per RN, pt having some urinary retention and addressing that today although he has some at baseline. SW met bedside with pt and spouse and updated spouse on [facility] acceptance and Medicare coverage and process for transport by facility van and she is very appreciative and agreeable with d[facility]. Spouse confirms that she and the pt are fully vaccinated and [facility] and spouse agreeable to bringing a copy if needed. Plan: SW to follow for likely pt d/c to [facility] tomorrow if medically stable and to update spouse on d/c and time if she is not bedside. Stephanie Stone MSW
--- NOTE | 2020-12-23 14:59 | PC.NURSE ---
Pt's questioned pt's left eye, as the eyelid remains slightly closed. I understood on admission that it was pt's baseline, as it was talked about with on day of admit, although possibly misunderstood, because the only issue she reports is the right eye does not close all the way. Assessed pt's strength in hands and arms and sensation to face, no deficits. Call to provider, voicemail left requesting call back, to inform him of this finding.
--- NOTE | 2020-12-23 15:30 | PT-IP ANOTE ---
Pt refused pm physical therapy treatment when arrived stating, I am to tired to do anything, you can come back tomorrow. Pt was not see for pm tx, will return in am. Will continue to assess progress.
--- NOTE | 2020-12-23 16:56 | DI.CT.S_ITS ---
PROCEDURE: CT HEAD/BRAIN WO CON INDICATIONS: left eye droop TECHNIQUE: Noncontrast 4.5 mm thick angled axial sections acquired from the foramen magnum to the vertex, with coronal and sagittal reformats. For radiation dose reduction, the following was used: automated exposure control, adjustment of mA and/or kV according to patient size. COMPARISON: [facility], CT, CT HEAD/BRAIN WO CON, 06/12/2018, 15:24. FINDINGS: Image quality: Excellent. CSF spaces: Basal cisterns are patent. No extra-axial fluid collections. The ventricles are symmetric in size and shape. Brain: No intracranial bleeds or masses. There is cerebral volume loss for age, with resultant ventricular and sulcal prominence. There are periventricular and deep white matter chronic small vessel ischemic changes. There is intracranial internal carotid artery atherosclerosis. Skull and face: Calvarium and visualized facial bones appear intact, without suspicious lesions. Metallic device overlies the right globe anteriorly. Sinuses: Visualized sinuses and mastoids are clear. IMPRESSION: 1. No acute intracranial abnormality. 2. Volume loss and small vessel ischemic disease. Dictated by: Deedee Mark M.D. on 12/23/2020 at 17:34 Approved by: Deedee Mark M.D. on 12/23/2020 at 17:35
[2020-12-23] MEDS: ASPIRIN 325 MG TABLET PO (17:03)
--- NOTE | 2020-12-23 17:51 | P.PN_ITS ---
Exam Vital Signs (past 8 hours): - 12/23/20 12:07 12/23/20 12:53 12/23/20 15:35 Temperature 98.4 F 98.2 F Pulse Rate 85 70 Respiratory Rate 17 16 Blood Pressure 94/56 L 123/67 101/62 Pulse Oximetry 97 93 Oxygen Delivery Method Room Air Oxygen Flow Rate 0 Objective Labs Result Diagrams: 12/22/20 05:25 [facility] Medical History Acromioclavicular joint separation, type 2 CAD (coronary artery disease) (~2007) Cervical stenosis of spinal canal Chronic back pain Colon polyps (~2010) CVA (cerebral vascular accident) (2015) Discoloration of skin Facet arthropathy, lumbar Foraminal stenosis of lumbosacral region Gait instability H/O: stroke (04/10/16) Hyperlipidemia Hypertension (~2016) Leg pain, bilateral Lumbar post-laminectomy syndrome Lumbosacral spondylosis Measles Mumps Neuropathy Osteoarthritis PAD (peripheral artery disease) Peripheral neuropathy (~1979) Rotator cuff impingement syndrome of right shoulder Sick sinus syndrome Skin cancer Skin infection Spinal stenosis Spinal stenosis of lumbar region without neurogenic claudication Spondylolisthesis at L4-L5 level Squamous cell skin cancer (~2015) Syncope Vertigo (~2013) Vision disorder Surgical History History of lumbar laminectomy (1988) History of lumbar laminectomy (1952) History of surgery (2007) History of surgery (1952) History of vasectomy Hx of bilateral cataract extraction 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 Mother No problems noted. Brother Diabetes mellitus Hypertension Hyperlipidemia Grandfather No problems noted. Social History marital status: number of children: 3 household members: spouse lives independently: Yes caregiver/support person: No housing: house pets and animals: No education level: college occupational status: other Previous occupational history: [employer] travel history: other leisure activities: music and other Smoking Status: Former smoker Tobacco: How many years used: 10 Smokeless tobacco user: other quit status: quit date established alcohol intake: current substance use type: does not use Assessment & Plan Assessment & Plan narrative: Patient was reported to have slurred speech and facial droop this PM. Patient was seen and examined. His dressing is clean and dry. He is alert and oriented. Complains of back pain. He did not notice his facial droop or speech. A nurse told him. He has left sided facial droop, speech was normal during our conversation. Other neuro exam was normal without obvious deficits. I discussed with medicine team his management plan. He is high risk for developing epidural hematoma and neurologic injury if he is placed on therapeutic dose heparin or other anticoag agents since he is only 2 days post surgery. His head CT did not show intracranial lesion correlating with his facial droop. Will continue monitoring and continue current medical management.
[2020-12-23 17:58] LABS: Hematocrit 32.1 % (41-53); Hemoglobin 10.6 g/dL (13.5-17.5); Mean Corpuscular Hemoglobin 32.2 PG (26-34); Mean Corpuscular Volume 97.4 fL (80-100); Platelet Count 125 X10^3/uL (150-400); Red Blood Cell Count 3.29 X10^6/uL (4.5-5.9); Red Cell Distribution Width 13.7 % (11.6-14.8)
[2020-12-23 18:01] LABS: INR 1.1 (0.9-1.3); Prothrombin Time 12.3 SECONDS (10.1-12.7)
[2020-12-23 18:07] LABS: Alanine Aminotransferase 24 IU/L (<50); Albumin 3.3 g/dL (3.5-5.0); Albumin Globulin Ratio 1.2 (1.0-2.8); Alkaline Phosphatase 51 U/L (38-126); Aspartate Aminotransferase 44 IU/L (17-59); BUN Creatinine Ratio 29.3 (6-22); Bilirubin Total 0.5 mg/dL (0.2-1.3); Blood Urea Nitrogen 29 mg/dL (9-20); Calcium 8.4 mg/dL (8.4-10.2); Carbon Dioxide 28 mmol/L (22-32); Chloride 102 mmol/L (98-107); Estimated Glomerular Filt Rate > 60.0 mL/min (>60); Globulin 2.8 g/dL (1.7-4.1); Glucose 102 mg/dL (80-110); HEMOLYSIS 25 (0-50); Potassium 4.8 mmol/L (3.4-5.1); Sodium 135 mmol/L (137-145); Total Protein 6.1 g/dL (6.3-8.2)
--- NOTE | 2020-12-23 20:03 | PC.NURSE ---
Addendum entered by Chaya Mims R.N. 12/23/20 23:23: Bobbi shift, late entry: notified provider on all regarding pt's Lt. eyelid droop. hospitalist consulted. reported to day shift nurse that his left eyelid droop is not part of his baseline. pt also has a slight R. facial droop. pt reports that his speech is slightly slurred, but it does not sound slurred speech to me. pt reports he has slight difficulty in swallowing. I did my swallow eval and he passed it. I watched him eat his general diet and he was able to swallow ok. no cough. Original Note: ledezma removed at 0800 today, pt voided 25cc, bladder scan had 109cc at [address]. notified Dr. Oliver, no new orders and just continue to push fluids. BP 101/51, HR 70, pt asymptomatic. urine dark yellow. provider aware.
--- NOTE | 2020-12-23 20:58 | P.CONS_ITS ---
History of Present Illness Consult details Date Patient Seen: 12/23/20 Time Patient Seen: 17:00 Chief complaint: Translaminar Interbody Fusion/Laminotomy Reason for consult: Left eye droop, R facial droop, slurred speech Requesting provider: Rafael Oliver Narrative: Mr. Ryder is an 85M with PMH of CAD, CVA, HTN, HL, PAD who comes in to the hospital on 12/21 for spinal surgery for symptomatic spinal stenosis. He und erwent the surgery successfully on 12/21. Patient after the OR was noted by nursing staff to have left upper eye drooping, R facial droop, and slurred speech. Per nursing this was thought to be his baseline. Speaking with the nurse who has taken care of him for the previous two days. She notes that when patient was admitted to the floor, there was communication with the that indicated the findings of his left upper eyelid droop was chronic. Per the nurse she also noted that the patient had slight R facial droop and intermittent slurred speech. This was again noted on 12/21 and thought to be baseline for the patient. This afternoon the patient's noted his left eyelid droop and said this was not his baseline. Medicine is consulted for further evaluation and treatment. Upon being consulted, I immediately evaluated the patient and discussed with the nurse. Patient was unaware of any changes. He says he does not have at baseline upper left eyelid droop, or facial droop. But aside from some slurred speech after surgery, which he attributed to his medications, he has not noticed any different. I did call the patient's who confirms the difference primarily of his drooping left upper eyelid, but when she was here after surgery on prior day, patient was sleeping, and she did not see if he had eyelid droop at that time. Patient at baseline has trouble with his vision, and he is not sure if his vision is worse than his baseline. He denies any new upper or lower extremity we akness, or any new swallowing difficulty. Meds Home Medications and Allergies Home Medications Medication Instructions Recorded Confirmed Type losartan 100 mg tablet 100 mg PO DAILY 03/02/18 12/21/20 History rosuvastatin 20 mg tablet 20 mg PO DAILY tab 12/03/19 12/21/20 History Disabled Parking #1 ea 06/15/20 12/21/20 Rx acetaminophen 325 mg capsule 325 mg PO DAILY PRN 07/29/20 12/14/20 History gabapentin 100 mg capsule 100 mg PO BEDTIME #90 cap 12/03/20 12/21/20 Rx clopidogrel 75 mg tablet 75 mg PO DAILY #90 tab 12/14/20 12/21/20 Rx gabapentin 400 mg PO BID 12/14/20 12/21/20 History metoprolol succinate 25 mg PO DAILY 12/14/20 12/21/20 History Allergies Allergy/AdvReac Type Severity Reaction Status Date / Time alprazolam [From Xanax] AdvReac Severe Passed Out Verified 12/14/20 10:08 oxycodone AdvReac Severe Passed Out Verified 12/14/20 10:08 Review of Systems Review of Systems Narrative: 14 systems reviewed and negative aside from HPI Exam Vital Signs (past 8 hours): - 12/23/20 15:35 12/23/20 19:49 Temperature 98.2 F 97.9 F Pulse Rate 70 70 Respiratory Rate 16 15 Blood Pressure 101/62 101/51 L Pulse Oximetry 93 95 Oxygen Delivery Method Room Air Oxygen Flow Rate 0 Narrative Exam Narrative: GEN: no acute distress HEENT: moist mucous membranes, pupils equally dilated and reactive NECK: trachea midline, no JVD CV: RRR, with no murmurs PULM: clear bilaterally with no wheezes rhonchi rales ABD: soft, nontender, nondistended no organomegaly EXT: warm and well perfused, no edema NEURO: slight R facial droop noted, patient has drooping left eyelid but he is able to raise it completely, R eyelid is unable to completely close (which patient says is his baseline), speech slow, but clear, no cerebellar signs, able to perform heel to rowland, no arm drift, upper and lower extremity strength 5/5, visual sow intact Objective Labs Result Diagrams: 12/23/20 17:45 12/23/20 17:45 Labs: Laboratory Results - last 24 hr 12/23/20 12/23/20 12/23/20 17:45 17:45 17:45 WBC 13.0 H RBC 3.29 L Hgb 10.6 L Hct 32.1 L MCV 97.4 MCH 32.2 MCHC 33.0 RDW 13.7 Plt Count 125 L PT 12.3 INR 1.1 Sodium 135 L Potassium 4.8 Chloride 102 Carbon Dioxide 28 BUN 29 H Creatinine 0.99 Estimated GFR > 60.0 BUN/Creatinine Ratio 29.3 H Glucose 102 Calcium 8.4 Total Bilirubin 0.5 AST 44 ALT 24 Alkaline Phosphatase 51 Total Protein 6.1 L Albumin 3.3 L Globulin 2.8 Albumin/Globulin Ratio 1.2 Assessment & Plan Assessment & Plan narrative: Mr. Ryder is an 85M with PMH CVA, CAD, s/p PPM, HTN, HL who was admitted for spinal surgery on 12/21 and noted today by to have left eyelid droop. 1. Left ptosis, R facial droop, slow speech -etiology includes stroke, vs other metabolic or med effect -no evidence of impaired dilation, or impaired ocular movement which would raise aneurysm, cranial nerve 3, or rodrick's syndrome as possibilities -may also be aponeurotic or mechanical ptosis -overall findings seem inconsistent with a specific neurologic distribution given right and left facial findings -last known normal after discussion with nurse, family, and patient was prior to surgery over 48 hours ago -patient outside window for code stroke -patient also has recent spinal surgery which is a contraindication to anticoagulation and tPA -did get full dose aspirin -would benefit from continuing anti-platelet for stroke risk reduction -ordered for high dose atorvastatin for stroke risk reduction -NIH stroke score per my exam was 2 (slurred speech, and facial droop), LAMS =1 -repeat NIH score q4 -swallow screen ordered -PT/OT/speech eval -stat CT head showed no acute bleed -MRI brain contraindicated due to pacemaker -ECHO, doppler of carotids ordered to complete stroke workup -lipid panel, a1c ordered for risk stratification -stat cbc, bmp ordered Thank you for this consult. We will continue to follow along.
[2020-12-23] MEDS: ATORVASTATIN 20 MG TABLET 80 MG PO (21:50)
[2020-12-23] MEDS: SENNOSIDES 8.6 MG TABLET 17.2 MG PO (21:51)
[2020-12-23] MEDS: GABAPENTIN 100 MG CAPSULE PO (21:51)
[2020-12-24 00:30] VITALS: BP 111/72; PULSE 77; RESP 18; TEMP 37.1; O2SAT 96
[2020-12-24 05:00] VITALS: BP 107/60; PULSE 81; RESP 16; TEMP 36.9; O2SAT 95
[2020-12-24 06:15] LABS: Add Manual Diff / Slide Review NO; Basophils Absolute Auto 0 /uL (0-100); Basophils Percent Auto 0.4 % (0-2); Eosinophils Absolute Auto 300 /uL (0-450); Eosinophils Percent Auto 2.6 % (2-4); Hematocrit 29.6 % (41-53); Hemoglobin 9.9 g/dL (13.5-17.5); Lymphocytes Absolute Auto 1700 /uL (1100-4500); Lymphocytes Percent Auto 16.6 % (25-40); Mean Corpuscular HGB Conc 33.3 % (30-36); Mean Corpuscular Hemoglobin 32.6 PG (26-34); Mean Corpuscular Volume 97.9 fL (80-100); Monocytes Absolute Auto 1300 /uL (0-900); Neutrophils Absolute Auto 6700 /uL (1500-7000); Neutrophils Percent Auto 67.4 % (50-75); Platelet Count 112 X10^3/uL (150-400); Red Blood Cell Count 3.02 X10^6/uL (4.5-5.9); Red Cell Distribution Width 13.8 % (11.6-14.8)
[2020-12-24 06:44] LABS: Cholesterol 111 mg/dL (140-199); HDL Cholesterol 32 mg/dL (40-60); LDL Cholesterol Calculated 51 mg/dL (<100); Triglycerides 138 mg/dL (35-150)
[2020-12-24 06:46] LABS: Alanine Aminotransferase 21 IU/L (<50); Albumin 2.9 g/dL (3.5-5.0); Albumin Globulin Ratio 1.1 (1.0-2.8); Alkaline Phosphatase 48 U/L (38-126); Aspartate Aminotransferase 35 IU/L (17-59); BUN Creatinine Ratio 28.3 (6-22); Bilirubin Total 0.4 mg/dL (0.2-1.3); Blood Urea Nitrogen 34 mg/dL (9-20); Calcium 8.3 mg/dL (8.4-10.2); Carbon Dioxide 26 mmol/L (22-32); Chloride 102 mmol/L (98-107); Estimated Glomerular Filt Rate 57.5 mL/min (>60); Globulin 2.7 g/dL (1.7-4.1); Glucose 108 mg/dL (80-110); HEMOLYSIS < 15 (0-50); Potassium 4.9 mmol/L (3.4-5.1); Sodium 132 mmol/L (137-145); Total Protein 5.6 g/dL (6.3-8.2)
[2020-12-24 06:52] LABS: Hemoglobin A1C% w Est Avg Glu 5.5 % (4.0-6.0)
--- NOTE | 2020-12-24 07:41 | PM.PNPO.1 ---
Subjective Subjective Date Patient Seen: 12/24/20 Time Patient Seen: 07:42 Interval history: Patient states his pain is mild this morning. Denies fever or chills. No nausea or vomiting. Patient denies headache or vision changes. Patient believes he may have had some blurred vision yesterday but does not recall how long lasted. Denies having any headache yesterday. No shortness of breath or chest pain. Patient states his will likely be unable to assist him much. Patient is wanting to consider residential facility placement. Exam Vital Signs (past 8 hours): - 12/24/20 00:30 12/24/20 05:00 Temperature 98.8 F 98.5 F Pulse Rate 77 81 Respiratory Rate 18 16 Blood Pressure 111/72 107/60 Pulse Oximetry 96 95 Oxygen Delivery Method Room Air Oxygen Flow Rate 0 Narrative Exam Narrative: 85-year-old male resting comfortably in bed in no apparent distress. Lumbar dressing is Clean, dry, intact.. Motor functions intact bilateral lower extremities. Sensation grossly intact to light touch bilateral lower extremities. Const General: cooperative Orientation: alert and oriented x3 Objective Labs Result Diagrams: 12/24/20 05:30 12/24/20 05:30 Labs: Laboratory Results - last 24 hr 12/23/20 12/23/20 12/23/20 17:45 17:45 17:45 WBC 13.0 H RBC 3.29 L Hgb 10.6 L Hct 32.1 L MCV 97.4 MCH 32.2 MCHC 33.0 RDW 13.7 Plt Count 125 L Neut % (Auto) Lymph % (Auto) [place] % (Auto) Eos % (Auto) Baso % (Auto) Neut # (Auto) Lymph # (Auto) [place] # (Auto) Eos # (Auto) Baso # (Auto) PT 12.3 INR 1.1 Sodium 135 L Potassium 4.8 Chloride 102 Carbon Dioxide 28 BUN 29 H Creatinine 0.99 Estimated GFR > 60.0 BUN/Creatinine Ratio 29.3 H Glucose 102 Hemoglobin A1c Calcium 8.4 Total Bilirubin 0.5 AST 44 ALT 24 Alkaline Phosphatase 51 Total Protein 6.1 L Albumin 3.3 L Globulin 2.8 Albumin/Globulin Ratio 1.2 Triglycerides Cholesterol LDL Cholesterol, Calc HDL Cholesterol 12/24/20 12/24/20 12/24/20 05:30 05:30 05:30 WBC 10.0 RBC 3.02 L Hgb 9.9 L Hct 29.6 L MCV 97.9 MCH 32.6 MCHC 33.3 RDW 13.8 Plt Count 112 L Neut % (Auto) 67.4 Lymph % (Auto) 16.6 L [place] % (Auto) 13.0 Eos % (Auto) 2.6 Baso % (Auto) 0.4 Neut # (Auto) 6700 Lymph # (Auto) 1700 [place] # (Auto) 1300 H Eos # (Auto) 300 Baso # (Auto) 0 PT INR Sodium 132 L Potassium 4.9 Chloride 102 Carbon Dioxide 26 BUN 34 H Creatinine 1.20 Estimated GFR 57.5 L BUN/Creatinine Ratio 28.3 H Glucose 108 Hemoglobin A1c 5.5 Calcium 8.3 L Total Bilirubin 0.4 AST 35 ALT 21 Alkaline Phosphatase 48 Total Protein 5.6 L Albumin 2.9 L Globulin 2.7 Albumin/Globulin Ratio 1.1 Triglycerides Cholesterol LDL Cholesterol, Calc HDL Cholesterol 12/24/20 05:30 WBC RBC Hgb Hct MCV MCH MCHC RDW Plt Count Neut % (Auto) Lymph % (Auto) [place] % (Auto) Eos % (Auto) Baso % (Auto) Neut # (Auto) Lymph # (Auto) [place] # (Auto) Eos # (Auto) Baso # (Auto) PT INR Sodium Potassium Chloride Carbon Dioxide BUN Creatinine Estimated GFR BUN/Creatinine Ratio Glucose Hemoglobin A1c Calcium Total Bilirubin AST ALT Alkaline Phosphatase Total Protein Albumin Globulin Albumin/Globulin Ratio Triglycerides 138 Cholesterol 111 L LDL Cholesterol, Calc 51 HDL Cholesterol 32 L [facility] Medical History Acromioclavicular joint separation, type 2 CAD (coronary artery disease) (~2007) Cervical stenosis of spinal canal Chronic back pain Colon polyps (~2010) CVA (cerebral vascular accident) (2016) Discoloration of skin Facet arthropathy, lumbar Foraminal stenosis of lumbosacral region Gait instability H/O: stroke (04/10/16) Hyperlipidemia Hypertension (~2016) Leg pain, bilateral Lumbar post-laminectomy syndrome Lumbosacral spondylosis Measles Mumps Neuropathy Osteoarthritis PAD (peripheral artery disease) Peripheral neuropathy (~1979) Rotator cuff impingement syndrome of right shoulder Sick sinus syndrome Skin cancer Skin infection Spinal stenosis Spinal stenosis of lumbar region without neurogenic claudication Spondylolisthesis at L4-L5 level Squamous cell skin cancer (~2016) Syncope Vertigo (~2013) Vision disorder Surgical History History of lumbar laminectomy (1988) History of lumbar laminectomy (1952) History of surgery (2007) History of surgery (1952) History of vasectomy Hx of bilateral cataract extraction 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 Mother No problems noted. Brother Diabetes mellitus Hypertension Hyperlipidemia Grandfather No problems noted. 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 Patient progressing slower than expected. Patient is 2 person assist with physical therapy. Physical therapy is recommending residential facility rehab. Consultation by hospitalist for left eye droop, right facial droop, slurred speech yesterday evening. Overall findings seemed inconsistent with specific neurologic distribution given right and left facial findings. Head CT December 23, 2020 shows no acute intracranial abnormality. Volume loss and small vessel ischemic disease. Weight-bearing as tolerated. Limit bending, twisting, lifting Discharge to residential facility when stable per hospitalist.
[2020-12-24 08:00] VITALS: BP 113/67; PULSE 82; RESP 16; TEMP 36.9; O2SAT 97
--- NOTE | 2020-12-24 08:00 | DI.US.S_ITS ---
PROCEDURE: US CAROTID DOPPLER BI INDICATIONS: CVA? TECHNIQUE: Color and pulse Doppler interrogation was performed of both carotid systems, with image documentation and velocity measurements. COMPARISON: None. FINDINGS: Stenosis calculations are based on SRU (Society of Radiologists in Ultrasound) criteria. Right side: Brachial blood pressure: 118/67 mm Hg. Common carotid artery peak systolic velocity: 116 cm/sec. Internal carotid artery peak systolic velocity: 113 cm/sec. Internal carotid artery end diastolic velocity: 38 cm/sec. External carotid artery peak systolic velocity: 109 cm/sec. ICA/CCA peak systolic ratio: 1 Clarke scale imaging description: Normal. Percent internal carotid artery stenosis: Less than 50% by velocity criteria. Vertebral artery: Flow direction is antegrade. Left side: Brachial blood pressure: 113/67 mm Hg. Common carotid artery peak systolic velocity: 144 cm/sec. Internal carotid artery peak systolic velocity: Nerve 44 cm/sec. Internal carotid artery end diastolic velocity: 37 cm/sec. External carotid artery peak systolic velocity: 129 cm/sec. ICA/CCA peak systolic ratio: 1 Clarke scale imaging description: Mild soft plaque can be seen. Percent internal carotid artery stenosis: 50-69% by velocity criteria Vertebral artery: Flow direction is antegrade. IMPRESSION: By velocity criteria, there is a moderate stenosis (between 50 and 69% stenosis) within the left proximal internal carotid artery. The true degree of stenosis is felt most likely to be at the lower end of this range. Dictated by: Omid Turner M.D. on 12/24/2020 at 9:26 Approved by: Omid Turner M.D. on 12/24/2020 at 9:27
--- NOTE | 2020-12-24 08:09 | PC.NURSE ---
Addendum entered by Marie Yap R.N. 12/24/20 08:13: Facial droop also included L side eyelid droop. Original Note: NIH score 3, d/t: LLE limb ataxia (pt reports LLE weak for months and painful post operatively), R side facial droop of lip, and mild slur of speech.
[2020-12-24 08:51] VITALS: BP 113/67; PULSE 83
[2020-12-24] MEDS: METOPROLOL ER 25 MG TABLET PO (08:51)
[2020-12-24] MEDS: DOCUSATE 100 MG CAPSULE PO (08:51)
[2020-12-24] MEDS: GABAPENTIN 400 MG CAPSULE PO (08:51)
[2020-12-24] MEDS: LOSARTAN 50 MG TABLET 100 MG PO (08:51)
[2020-12-24] MEDS: SODIUM CHLORIDE 0.9% FLUSH 10 ML IV (08:52)
[2020-12-24] MEDS: HYDROCODONE/ACET 5/325 TABLET 2 TAB PO ×2 (08:54→12:53)
--- NOTE | 2020-12-24 09:23 | PT.IPTN ---
Current Diagnoses Spondylolisthesis, lumbar region (12/21/20) Other spondylosis with radiculopathy, lumbosacral region (12/21/20) Spinal stenosis, lumbar region without neurogenic claudication (12/21/20) Surgery Performed Operation Date: 12/21/20 07:45 Actual Procedures p L3-4, L4-5 TLIF with posterior instrumentation(Not Applicable) - Candace Gallardo MD Physical Therapy Treatment Note M2 PT-IP Current Condition Start: 12/21/20 12:25 Freq: NEEDED Status: Active Protocol: Document 12/22/20 11:27 AW (Rec: 12/22/20 12:40 AW [id number]) Physical Therapy Current Condition Current Condition Evaluation Date 12/22/20 Treatment Diagnosis L3-4 L4-5 TLIF; difficulty in walking Onset Date 12/21/20 Precautions Lumbar Precautions Log Roll,No Twisting,Limit Bending,Lifting Restriction of 10 lbs,Gait Belt above Incisional Area M3 PT-IP Subjective Start: 12/21/20 12:25 Freq: NEEDED Status: Active Protocol: Document 12/24/20 09:00 SP (Rec: 12/24/20 09:51 SP [id number]) Subjective Physical Therapy Visit Type Type Treatment Note Visit Start Time 09:00 Visit Stop Time 09:23 Total Visit Minutes 23 Notes Cotx with OT increased physical assist required this tx. Number of LABORER SHAFT SINKING Visits 2 Physical Therapy Visit Comments Patient Comments Pt agreeable to working with therapy but stated just got his pain meds. Patient Goals Pt agreeable to going to rehab to improve strength before returning home. Therapy Pain Assessment Pain When Pain Assessed At Rest Pain Present Pain Present Pain Reported Location Back Intensity 6 Scale Used Numeric (0 - 10) Description With Movement Pain Behaviors Facial Grimacing,Guarding, Wincing Pain Management Techniques Modification of Treatment,Re- positioning,Timing of Activity with Medications M4 PT-IP Mobility and Gait Start: 12/21/20 12:25 Freq: NEEDED Status: Active Protocol: Document 12/24/20 09:00 SP (Rec: 12/24/20 09:51 SP [id number]) PT-Bed Mobility Assessment Rolling Type of Rolling Log Rolling,Roll to Right Level of Assist Minimal Assistance,1 Person Assistance Supine to Sit Supine to Sit Moderate Assistance,1 Person Assistance,Bedrails Scooting Scooting to Edge of Bed Moderate Assistance PT-Transfer Assessment Sit to and From Stand Sit to and from Stand Moderate Assistance,2 Person Assistance,Use of Upper Extremities Equipment Transfer Assistive Device Gait Belt,Front Wheeled Walker Orthotic/Prosthetic Devices or Brace: No Transfers Transfer Destination Bed Transfer Technique Stand Step Pivot Transfer Ability Level of Assist Moderate Assistance,2 Person Assistance,Use of Upper Extremities Comments Mobility Comments Pt inclined in bed when arrived, lowered bed flat. R LR use of bed rail, R SL>sit Min and Mod A x1 for trunk righting, Mod A x1 to scoot to EOB for trunk stability and LE forward locomotion. Sitting balance initially CGA- min then decreased to SBA while used urinal. Sit>stand retro lean initially required sit back on bed successful complete upright 2nd attempt use of FWW SPT to chair Mod A x2 with support and max cuing for recorrecting R trunk lean and fWW mgt with difficulty stated by pt. Cued for proper hand placement Mod A slow decent into chair. Seated rest for 3 min then Sit>stand Mod A x2 forward gait with heavy WB BUE on FWW Max A x1 and chair follow forward gait toward closet approx 8 ft before requried to sit due to forward and R trunk lean with decreased L>R foot clearance. Pt was upright sitting in chair with chair alarm donned call light and allneeds in reach with OT in room before left. Gait Assessment Gait Gait Assistance Required: Maximum Assistance,1 Person Assist Distance (Feet) 8 Able to Maintain Weight Bearing Status Yes During Gait Assistive Devices Assistive Device Gait Belt,Front Wheeled Walker Orthotic/Prosthetic Devices or Brace: No Gait Deviations General Gait Pattern Antalgic,Decreased Stride Length,Decreased Feet Clearance,Flexed Trunk,Lateral Trunk Lean,Narrow Based Gait Factors Limiting Gait Function Factors Limiting Gait Function Decreased Activity Tolerance, Decreased Strength,Difficulty Following Directions,Limited Range of Motion,Pain,Poor Balance,Poor Safety Awareness Comments Gait Comments See mobility comments Stair Climbing Assessment Comments Stair Climbing Comments Not assessed. No need to manage stairs at home. PT-Balance Assessment Sitting Balance and Reactions Static Sitting Balance Ability Fair Dynamic Sitting Balance Ability Poor Standing Balance and Reactions Static Standing Balance Ability Poor Dynamic Standing Balance Ability Poor Device Used FWW M5 PT-IP Objective Assessments Start: 12/21/20 12:25 Freq: NEEDED Status: Active Protocol: Document 12/22/20 11:27 AW (Rec: 12/22/20 12:40 AW [id number]) Orientation Orientation/Cognition Level of Alertness Confusional State Orientation Name,Month,Place,Situation Language Function Ability No Deficits Noted Safety Awareness Decreased Safety Awareness Memory Description Short Term Impaired Gross Range of Motion Lower Extremity ROM Assessment Within Functional Limits Strength Lower Extremity Strength Assessment Bilaterally Impaired Hip R 3+/5; L 3/5 Knee R 4/5; L 4-/5 Ankle B 4-/5 Sensation Assessment Sensation Gross Sensation Right LE Impaired,Left LE Impaired Light Touch Impaired Proprioception (Position) Impaired Sensation Description Numbness Comments Sensation Comments Peripheral neuropathy chronically affecting BLE up to ankles Muscle Tone Muscle Tone WNL Yes M6 PT-IP Treatment Start: 12/21/20 12:25 Freq: NEEDED Status: Active Protocol: Document 12/24/20 09:00 SP (Rec: 12/24/20 09:51 SP [id number]) Physical Therapy Treatment Education Education Provided Precautions,Safety Other Treatments Other Treatment Performed Pt able to recall 2/3 precautions, missed no heavy lifting. M7 PT-IP Assessment and Plan Start: 12/21/20 12:25 Freq: NEEDED Status: Active Protocol: Document 12/24/20 09:00 SP (Rec: 12/24/20 09:51 SP [id number]) PT Summary Assessment and Plan Potential Rehabilitation Potential Good Status of Condition at Evaluation Evolving Summary Impairments Pain,ROM,Strength,Balance, Coordination,Cognition,Bed Mobility,Transfers,Gait, Activity Tolerance Progress Towards Goals Slow Progress due to Pain,Slow Progress due to Medical Issues,Slow Progress due to Activity Tolerance Assessment Summary Pt more lethargic today with reported increased pain and little confusion in conversation. Pt requires increase physical assist during all mobiltiy: Mod bed mobility, CGA- min for sitting balance at EOB, Mod A x2 for transfers using, gait Max A x1 with chair follow and increased R trunk lean. Continue recommendation of SNF upon DC. Will continue to assess progress. Goals Bed Mobility Goal Standby Assistance Transfer Goal Standby Assistance,Front Wheeled Walker Gait Goal Standby Assistance,Front Wheel Walker Gait Distance 100 Days to Meet Goals 5 Frequency of Treatment Frequency Of Treatment Twice a Day Treatment Plan Physical Therapy Treatment Plan Bed Mobility Training,Transfer Training,Gait Training, Therapeutic Exercise,Balance Retraining,Post Op Education, Discharge Planning,Hot or Cold Pack,Neuromuscular Re-ed, Coordination Retraining Other Recommendations and Next Treatment bed mobiltiy, transfers, gait Focus if tolerated 2 person for safety. Precautions Lumbar Precautions Log Roll,No Twisting,Limit Bending,Lifting Restriction of 10 lbs,Gait Belt above Incisional Area Recommendations To Nursing Amount of Assist Needed 2 Person Assist Discharge Recommendations PT Discharge Recommendations SNF Rehab Transportation Needs at Discharge Wheelchair/Cabulance
--- NOTE | 2020-12-24 09:23 | PT.IPTN ---
Current Diagnoses Spondylolisthesis, lumbar region (12/21/20) Other spondylosis with radiculopathy, lumbosacral region (12/21/20) Spinal stenosis, lumbar region without neurogenic claudication (12/21/20) Surgery Performed Operation Date: 12/21/20 07:45 Actual Procedures p L3-4, L4-5 TLIF with posterior instrumentation(Not Applicable) - Candace Gallardo MD Physical Therapy Treatment Note M2 PT-IP Current Condition Start: 12/21/20 12:25 Freq: NEEDED Status: Active Protocol: Document 12/22/20 11:27 AW (Rec: 12/22/20 12:40 AW [id number]) Physical Therapy Current Condition Current Condition Evaluation Date 12/22/20 Treatment Diagnosis L3-4 L4-5 TLIF; difficulty in walking Onset Date 12/21/20 Precautions Lumbar Precautions Log Roll,No Twisting,Limit Bending,Lifting Restriction of 10 lbs,Gait Belt above Incisional Area M3 PT-IP Subjective Start: 12/21/20 12:25 Freq: NEEDED Status: Active Protocol: Document 12/24/20 09:00 SP (Rec: 12/24/20 09:51 SP [id number]) Subjective Physical Therapy Visit Type Type Treatment Note Visit Start Time 09:00 Visit Stop Time 09:23 Total Visit Minutes 23 Number of YEAST SUPERVISOR Visits 2 Physical Therapy Visit Comments Patient Comments Pt agreeable to working with therapy but stated just got his pain meds. Patient Goals Pt agreeable to going to rehab to improve strength before returning home. Therapy Pain Assessment Pain When Pain Assessed At Rest Pain Present Pain Present Pain Reported Location Back Intensity 6 Scale Used Numeric (0 - 10) Description With Movement Pain Behaviors Facial Grimacing,Guarding, Wincing Pain Management Techniques Modification of Treatment,Re- positioning,Timing of Activity with Medications M4 PT-IP Mobility and Gait Start: 12/21/20 12:25 Freq: NEEDED Status: Active Protocol: Document 12/24/20 09:00 SP (Rec: 12/24/20 09:51 SP [id number]) PT-Bed Mobility Assessment Rolling Type of Rolling Log Rolling,Roll to Right Level of Assist Minimal Assistance,1 Person Assistance Supine to Sit Supine to Sit Moderate Assistance,1 Person Assistance,Bedrails Scooting Scooting to Edge of Bed Moderate Assistance PT-Transfer Assessment Sit to and From Stand Sit to and from Stand Moderate Assistance,2 Person Assistance,Use of Upper Extremities Equipment Transfer Assistive Device Gait Belt,Front Wheeled Walker Orthotic/Prosthetic Devices or Brace: No Transfers Transfer Destination Bed Transfer Technique Stand Step Pivot Transfer Ability Level of Assist Moderate Assistance,2 Person Assistance,Use of Upper Extremities Comments Mobility Comments Pt inclined in bed when arrived, lowered bed flat. R LR use of bed rail, R SL>sit Min and Mod A x1 for trunk righting, Mod A x1 to scoot to EOB for trunk stability and LE forward locomotion. Sitting balance initially CGA- min then decreased to SBA while used urinal. Sit>stand retro lean initially required sit back on bed successful complete upright 2nd attempt use of FWW SPT to chair Mod A x2 with support and max cuing for recorrecting R trunk lean and fWW mgt with difficulty stated by pt. Cued for proper hand placement Mod A slow decent into chair. Seated rest for 3 min then Sit>stand Mod A x2 forward gait with heavy WB BUE on FWW Max A x1 and chair follow forward gait toward closet approx 8 ft before requried to sit due to forward and R trunk lean with decreased L>R foot clearance. Pt was upright sitting in chair with chair alarm donned call light and allneeds in reach with OT in room before left. Gait Assessment Gait Gait Assistance Required: Maximum Assistance,1 Person Assist Distance (Feet) 8 Able to Maintain Weight Bearing Status Yes During Gait Assistive Devices Assistive Device Gait Belt,Front Wheeled Walker Orthotic/Prosthetic Devices or Brace: No Gait Deviations General Gait Pattern Antalgic,Decreased Stride Length,Decreased Feet Clearance,Flexed Trunk,Lateral Trunk Lean,Narrow Based Gait Factors Limiting Gait Function Factors Limiting Gait Function Decreased Activity Tolerance, Decreased Strength,Difficulty Following Directions,Limited Range of Motion,Pain,Poor Balance,Poor Safety Awareness Comments Gait Comments See mobility comments Stair Climbing Assessment Comments Stair Climbing Comments Not assessed. No need to manage stairs at home. PT-Balance Assessment Sitting Balance and Reactions Static Sitting Balance Ability Fair Dynamic Sitting Balance Ability Poor Standing Balance and Reactions Static Standing Balance Ability Poor Dynamic Standing Balance Ability Poor Device Used FWW M5 PT-IP Objective Assessments Start: 12/21/20 12:25 Freq: NEEDED Status: Active Protocol: Document 12/22/20 11:27 AW (Rec: 12/22/20 12:40 AW [id number]) Orientation Orientation/Cognition Level of Alertness Confusional State Orientation Name,Month,Place,Situation Language Function Ability No Deficits Noted Safety Awareness Decreased Safety Awareness Memory Description Short Term Impaired Gross Range of Motion Lower Extremity ROM Assessment Within Functional Limits Strength Lower Extremity Strength Assessment Bilaterally Impaired Hip R 3+/5; L 3/5 Knee R 4/5; L 4-/5 Ankle B 4-/5 Sensation Assessment Sensation Gross Sensation Right LE Impaired,Left LE Impaired Light Touch Impaired Proprioception (Position) Impaired Sensation Description Numbness Comments Sensation Comments Peripheral neuropathy chronically affecting BLE up to ankles Muscle Tone Muscle Tone WNL Yes M6 PT-IP Treatment Start: 12/21/20 12:25 Freq: NEEDED Status: Active Protocol: Document 12/24/20 09:00 SP (Rec: 12/24/20 09:51 SP [id number]) Physical Therapy Treatment Education Education Provided Precautions,Safety Other Treatments Other Treatment Performed Pt able to recall 2/3 precautions, missed no heavy lifting. M7 PT-IP Assessment and Plan Start: 12/21/20 12:25 Freq: NEEDED Status: Active Protocol: Document 12/24/20 09:00 SP (Rec: 12/24/20 09:51 SP [id number]) PT Summary Assessment and Plan Potential Rehabilitation Potential Good Status of Condition at Evaluation Evolving Summary Impairments Pain,ROM,Strength,Balance, Coordination,Cognition,Bed Mobility,Transfers,Gait, Activity Tolerance Progress Towards Goals Slow Progress due to Pain,Slow Progress due to Medical Issues,Slow Progress due to Activity Tolerance Assessment Summary Pt more lethargic today with reported increased pain and little confusion in conversation. Pt requires increase physical assist during all mobiltiy: Mod bed mobility, CGA- min for sitting balance at EOB, Mod A x2 for transfers using, gait Max A x1 with chair follow and increased R trunk lean. Continue recommendation of SNF upon DC. Will continue to assess progress. Goals Bed Mobility Goal Standby Assistance Transfer Goal Standby Assistance,Front Wheeled Walker Gait Goal Standby Assistance,Front Wheel Walker Gait Distance 100 Days to Meet Goals 5 Frequency of Treatment Frequency Of Treatment Twice a Day Treatment Plan Physical Therapy Treatment Plan Bed Mobility Training,Transfer Training,Gait Training, Therapeutic Exercise,Balance Retraining,Post Op Education, Discharge Planning,Hot or Cold Pack,Neuromuscular Re-ed, Coordination Retraining Other Recommendations and Next Treatment bed mobiltiy, transfers, gait Focus if tolerated 2 person for safety. Precautions Lumbar Precautions Log Roll,No Twisting,Limit Bending,Lifting Restriction of 10 lbs,Gait Belt above Incisional Area Recommendations To Nursing Amount of Assist Needed 2 Person Assist Discharge Recommendations PT Discharge Recommendations SNF Rehab Transportation Needs at Discharge Wheelchair/Cabulance
--- NOTE | 2020-12-24 09:30 | OT.IP.TRT ---
Current Diagnoses Spondylolisthesis, lumbar region (12/21/20) Other spondylosis with radiculopathy, lumbosacral region (12/21/20) Spinal stenosis, lumbar region without neurogenic claudication (12/21/20) Surgery Performed Operation Date: 12/21/20 07:45 Actual Procedures p L3-4, L4-5 TLIF with posterior instrumentation(Not Applicable) - Candace Gallardo MD Occupational Therapy Treatment Note M2 OT-IP Current Condition Start: 12/22/20 12:04 Freq: Status: Active Protocol: Document 12/22/20 10:03 [facility] (Rec: 12/22/20 12:23 [facility] [id number]) Occupational Therapy Current Condition Current Condition Evaluation Date 12/22/20 Treatment Diagnosis s/p L3-4, L4-5 TLIF with post. instr Diagnosis Onset Date 12/21/20 Post Operative Precautions Lumbar Precautions Log Roll,No Twisting,Limit Bending,Lifting Restriction of 10 lbs,Gait Belt above Incisional Area M3 OT- IP Subjective and Pain Start: 12/22/20 12:04 Freq: Status: Active Protocol: Document 12/24/20 09:31 [facility] (Rec: 12/24/20 09:42 [facility] [id number]) OT- Subjective Occupational Therapy Visit Type Type Treatment Note Visit Start Time 09:00 Visit Stop Time 09:30 Total Visit Minutes 30 Occupational Therapy Visit Comments Patient Comments Pt wanting to use the urinal versus walk to the bathroom. BRANCH SALES MANAGER there for the session due to pt need for two person assist for mobility needs. Patient/Caregiver Goals Pt wanting to go home , but realizes would be best to go to skilled rehab first as pt's just had arm surgery and not able to do much lifting assist for pt. OT Pain Assessment Pain When Pain Assessed During Mobility Pain Present Pain Present Pain Reported Location Back Intensity 5 Scale Used Numeric (0 - 10) M4 OT- IP ADL's Start: 12/22/20 12:04 Freq: Status: Active Protocol: Document 12/24/20 09:31 [facility] (Rec: 12/24/20 09:42 [facility] [id number]) OT [id number] Comments OT Self-Feeding Comments NOt at meal time. Noted pt coughing after brushing his teeth and voice quetionable if sounding wet. Notified nursing, nursing states CUSTOMER SERVICE LEADER eval ordered already. OT ADL-Grooming General Evaluation Grooming Ability Standby Assistance Areas Needing Assistance Retrieving/Set-up of Grooming Items Comments OT Grooming Comments Set up while seated. OT ADL-Oral Care General Eval Oral Care Ability Independent OT ADL-Dressing General Eval Lower Body Dressing Ability Maximum Assistance Areas Needing Assistance Socks OT ADL-Toileting General Evaluation Toileting Ability Minimal Assistance Comments OT Toileting Comments Assist to help place urinal in place and for set-up of wash cloth. Pt seated. M6 OT- IP Functional Cognition Start: 12/22/20 12:04 Freq: Status: Active Protocol: Document 12/24/20 09:31 [facility] (Rec: 12/24/20 09:42 [facility] [id number]) Cognitive Factors Limiting Selfcare Function Cognitive Ability Level of Alertness Alert,Confusional State,Drowsy Attention Span Ability Capable of Focused Attention, Capable of Sustained Attention Ability to Follow Commands Able to Follow One Step Commands with Increased Time, Able to Follow One Step Commands with Repetition Safety Awareness Decreased Recall of Precautions,Decreased Ability to Apply Precautions Cognitive Comments Cognitive Assessment Comments Pt very drowsy and needing repeated cues to follow. Pt initially trying to put the urinal on top on his gown and needing assist to help position the urinal in place. Pt needing vc for safety awareness for hand placement and FWW safety. Pt only able to recall 2/3 back precautions at this time. M7 OT- IP Mobility and Balance Start: 12/22/20 12:04 Freq: Status: Active Protocol: Document 12/24/20 09:31 [facility] (Rec: 12/24/20 09:42 [facility] [id number]) OT- Bed Mobility Assessment Rolling Type of Rolling Roll to Right Level of Assistance Moderate Assistance Supine to Sit Supine to Sit Assist Moderate Assistance Scooting Scooting to Edge of Bed Moderate Assistance OT-Transfer Assessment Sit to and From Stand Sit to and from Stand Moderate Assistance,2 Person Assistance Transfers Transfer Ability Moderate Assistance,2 Person Assistance Technique Transfer Destination Bed,Chair Transfer Technique Stand Step Pivot Devices Transfer Assistive Devices Gait Belt,Front Wheeled Walker Comments Mobility Comments MOD A x2 to stand from high bed . Pt initially able to take a few steps with mod/MAX a x1 wit FWW and then needing two person for safety . OT- Balance Assessment Sitting Balance and Reactions Static Sitting Balance Ability Good Dynamic Sitting Balance Ability Fair Standing Balance and Reactions Static Standing Balance Ability Poor M8 OT- IP Objective Assessments Start: 12/22/20 12:04 Freq: Status: Active Protocol: Document 12/22/20 10:03 [facility] (Rec: 12/22/20 12:23 [facility] [id number]) OT Gross Range of Motion Upper Extremity Range of Motion Assessment Within Functional Limits OT-Muscle Tone Assessment Muscle Tone WNL Yes M9 OT- IP Assessment and Plan Start: 12/22/20 12:04 Freq: Status: Active Protocol: Document 12/24/20 09:31 [facility] (Rec: 12/24/20 09:42 [facility] [id number]) OT Summary Assessment and Plan Potential Rehabilitation Potential Good Analytic Complexity at Evaluation Low Summary OT Impairments Pain,Strength,Balance, Functional Cognition, Functional Mobility,Grooming, Dressing,Toileting,Bathing, Toilet Transfers,Shower Transfers,Activity Tolerance Progress Towards Goals Slow Progress due to Pain,Slow Progress due to Medical Issues,Slow Progress due to Activity Tolerance,Slow Progress due to Cognition Assessment Summary Pt still groggy, and noted increased leaning to the right while seated and needing cue to correct. Pt also noted heavily leaning to the right while standing. Nursing notified. Pt to go to skilled rehab when medically stable. Goals Grooming Goal Independent Dressing Goal Independent Toileting Goal Independent Bathing Goal Independent Toilet Transfer Goal Independent Shower Transfer Goal Independent Patient/Caregiver Education Goal Demonstrate Post-Op Precautions,Caregiver Independent Assisting Patient Days to Meet Goals 20 Frequency of Treatment Frequency Of Treatment Once a Day Treatment Plan OT Treatment Plan ADL Training,Functional Cognition Training,Functional Mobility,Patient/Family Education,Discharge Planning Other Treatment Recommendations and Next Stand at sink for grooming Treatment Focus needs. Discharge Recommendations OT Discharge Recommendations SNF Rehab Home Equipment Needs defer to SNF Transportation Needs at Discharge Wheelchair/Cabulance
--- NOTE | 2020-12-24 11:05 | P.PN_ITS ---
Subjective Subjective Date Patient Seen: 12/24/20 Time Patient Seen: 11:05 Interval history: Chuckie Ryder is an 85-year-old male, medicine was consulted for further evaluation of neurological changes, including a right-sided facial droop and some slow speech. Initial CT testing showed no evidence of hemorrhage. He had a prior carotid ultrasound in August of this year which did not show evidence of an interatrial shunt. Carotid ultrasound did show mild stenosis in his left internal carotid artery, but not significantly so that he would need surgery. Patient denies complaints of chest pain, palpitations, naseua, vomiting today. Feels slightly stronger today, speech still is a bit slow. Exam Vital Signs (past 8 hours): - 12/24/20 05:00 12/24/20 08:00 12/24/20 08:51 Temperature 98.5 F 98.4 F Pulse Rate 81 82 83 Respiratory Rate 16 16 Blood Pressure 107/60 113/67 113/67 Pulse Oximetry 95 97 Oxygen Delivery Method Room Air Oxygen Flow Rate 0 Narrative Exam Narrative: GEN: no acute distress, WDWN HEENT: moist mucous membranes, pupils equally dilated and reactive NECK: trachea midline, no JVD CV: RRR, with no murmurs PULM: clear bilaterally with no wheezes rhonchi rales ABD: soft, nontender, nondistended no organomegaly EXT: warm and well perfused, no edema NEURO: slight R facial droop noted, patient has drooping left eyelid but he is able to raise it completely, R eyelid is unable to completely close (which patient says is his baseline), speech slow, but clear, no cerebellar signs, able to perform heel to rowland, no arm drift, upper and lower extremity strength 5/5, visual sow intact Objective Labs Result Diagrams: 12/24/20 05:30 12/24/20 05:30 Labs: Laboratory Results - last 24 hr 12/23/20 12/23/20 12/23/20 17:45 17:45 17:45 WBC 13.0 H RBC 3.29 L Hgb 10.6 L Hct 32.1 L MCV 97.4 MCH 32.2 MCHC 33.0 RDW 13.7 Plt Count 125 L Neut % (Auto) Lymph % (Auto) [place] % (Auto) Eos % (Auto) Baso % (Auto) Neut # (Auto) Lymph # (Auto) [place] # (Auto) Eos # (Auto) Baso # (Auto) PT 12.3 INR 1.1 Sodium 135 L Potassium 4.8 Chloride 102 Carbon Dioxide 28 BUN 29 H Creatinine 0.99 Estimated GFR > 60.0 BUN/Creatinine Ratio 29.3 H Glucose 102 Hemoglobin A1c Calcium 8.4 Total Bilirubin 0.5 AST 44 ALT 24 Alkaline Phosphatase 51 Total Protein 6.1 L Albumin 3.3 L Globulin 2.8 Albumin/Globulin Ratio 1.2 Triglycerides Cholesterol LDL Cholesterol, Calc HDL Cholesterol 12/24/20 12/24/20 12/24/20 05:30 05:30 05:30 WBC 10.0 RBC 3.02 L Hgb 9.9 L Hct 29.6 L MCV 97.9 MCH 32.6 MCHC 33.3 RDW 13.8 Plt Count 112 L Neut % (Auto) 67.4 Lymph % (Auto) 16.6 L [place] % (Auto) 13.0 Eos % (Auto) 2.6 Baso % (Auto) 0.4 Neut # (Auto) 6700 Lymph # (Auto) 1700 [place] # (Auto) 1300 H Eos # (Auto) 300 Baso # (Auto) 0 PT INR Sodium 132 L Potassium 4.9 Chloride 102 Carbon Dioxide 26 BUN 34 H Creatinine 1.20 Estimated GFR 57.5 L BUN/Creatinine Ratio 28.3 H Glucose 108 Hemoglobin A1c 5.5 Calcium 8.3 L Total Bilirubin 0.4 AST 35 ALT 21 Alkaline Phosphatase 48 Total Protein 5.6 L Albumin 2.9 L Globulin 2.7 Albumin/Globulin Ratio 1.1 Triglycerides Cholesterol LDL Cholesterol, Calc HDL Cholesterol 12/24/20 05:30 WBC RBC Hgb Hct MCV MCH MCHC RDW Plt Count Neut % (Auto) Lymph % (Auto) [place] % (Auto) Eos % (Auto) Baso % (Auto) Neut # (Auto) Lymph # (Auto) [place] # (Auto) Eos # (Auto) Baso # (Auto) PT INR Sodium Potassium Chloride Carbon Dioxide BUN Creatinine Estimated GFR BUN/Creatinine Ratio Glucose Hemoglobin A1c Calcium Total Bilirubin AST ALT Alkaline Phosphatase Total Protein Albumin Globulin Albumin/Globulin Ratio Triglycerides 138 Cholesterol 111 L LDL Cholesterol, Calc 51 HDL Cholesterol 32 L [facility] Medical History Acromioclavicular joint separation, type 2 CAD (coronary artery disease) (~2007) Cervical stenosis of spinal canal Chronic back pain Colon polyps (~2010) CVA (cerebral vascular accident) (2015) Discoloration of skin Facet arthropathy, lumbar Foraminal stenosis of lumbosacral region Gait instability H/O: stroke (04/10/16) Hyperlipidemia Hypertension (~2016) Leg pain, bilateral Lumbar post-laminectomy syndrome Lumbosacral spondylosis Measles Mumps Neuropathy Osteoarthritis PAD (peripheral artery disease) Peripheral neuropathy (~1979) Rotator cuff impingement syndrome of right shoulder Sick sinus syndrome Skin cancer Skin infection Spinal stenosis Spinal stenosis of lumbar region without neurogenic claudication Spondylolisthesis at L4-L5 level Squamous cell skin cancer (~2015) Syncope Vertigo (~2013) Vision disorder Surgical History History of lumbar laminectomy (1988) History of lumbar laminectomy (1952) History of surgery (2007) History of surgery (1952) History of vasectomy Hx of bilateral cataract extraction 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 Mother No problems noted. Brother Diabetes mellitus Hypertension Hyperlipidemia Grandfather No problems noted. 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 Ryder is an 85M with PMH CVA, CAD, s/p PPM, HTN, HL who was admitted for spinal surgery on 12/21, medicine was consulted for neurological changes and possible CVA. 1. Acute CVA. -etiology includes stroke most likely, unable to completely rule out other metabolic or med effect although given persistent symptoms these are felt to be less likely today. Unable to confirm with MR imaging given patient's PPM. Outside of stroke window at time of consultation. -overall findings seem inconsistent with a specific neurologic distribution given right and left facial findings, although still R facial droop and speech difficulties, left sided sypmtoms may be unrelated. Carotid ultrasound showed mild stenosis on the left, though less than 70%. -did get full dose aspirin, would benefit from continuing anti-platelet for st roke risk reduction, can continue asa and plavix at discharge for 21 days, then can discontinue aspirin. This is ideal, however changes can be modified based on bleeding risk after surgery. He further has a history of atrial fibrillation according to cardiology documentation, though he now has a PPM. 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 -patient's crestor already prescribed at high intensity dosing, no medication changes necessary. -NIH stroke score per my exam was 2 (slurred speech, and facial droop) -continue PT/OT/Speech therapy as an outpatient if recommended by therapies -patient with recent TTE 07/2020 without evidence of shunting. No need for repeat testing this admission. -Lipid panel with adequate control. A1c 5.5%. -consider MRI brain as an outpatient with facility that may be able to perform MRI with his PPM if possible to possibly clarify or confirm the diagnosis. Can also consider repeat head CT to see if there is a notable infarct as an outpa tient. recommend PCP follow up in 1-2 weeks to help determine if this is necessary. 2. HTN - continue home medications, no changes recommended at this time. 3. history of paroxysmal atrial fibrillation - follow up with cardiology as documented above. Medicine will sign off at this time, no further inpatient evaluation is required from my persepective, recommend outpatient evaluation as noted above to, in brief include: 1. further testing with PCP to possibly include outpatient MRI vs repeat head CT, some locations can perform MRI with MRI compatible PPM. 2. continue asa 81 mg daily and plavix 75 mg daily for an additional 20 days after discharge for stroke reduction risk ideally, however surgery may differ with patient's bleeding risk. 3. Follow up with cardiology for interrogation of PPM at that time and discussion about stroke reduction given his history of afib with possible full dose AC. 4. I have reviewed his chart and Patient's PCP is Dr. Proctor, whom typically does inpatient consults on his own patients. I reached out to his office to see if he would like to do anything further at this time, or if patient can follow up as an outpatient.
--- NOTE | 2020-12-24 11:29 | ST.IPIE ---
ST IP Initial Evaluation Report [facility] Clinical Swallow Evaluation Start: 12/24/20 11:09 Freq: Status: Active Protocol: Document 12/24/20 11:10 [facility] (Rec: 12/24/20 11:25 [facility] [id number]) Clinical Swallow Evaluation Session Time Visit Start Time 10:35 Visit Stop Time 11:00 Total Visit Minutes 25 Visit Information Visit Number 1 Referral Reason for Referral Coughing on liquids, slurred speech Setting Assessment Location Acute Care Visit Type Note Type Initial evaluation Patient Information Identification Type Name History Patient had surgery for chronic back pain on 12/21. He was noted to have right sided mouth droop and left sided eye droop. CT on 12/23 revealed No acute intracranial abnormality, Volume loss and small vessel ischemic disease. Patient has pacemaker and is not able to undergo MRI. Subjective Observations Patient sleeping in bed in room, but awoke when I knocked on the door and entered. He was noted to have flat affect and was rather slow and limited in his responses, but was cooperative throughout the visit. Reported by Patient Comment Patient reports increased difficulty swallowing saliva. OT noted coughing after brushing teeth. Current Diet Regular,Thin liquids Baseline Feeding Method Independent in self-feeding Objective Assessment Oral Integrity WFL Dentition Within normal limits,Upper dentures/partials,Adequate denture or partial fitting Lip Function Mild impairment Observation of Lips at Rest Right sided weakness/Drooping Pucker Reduced range of motion Lip Retraction Reduced range of motion,Right sided weakness/Drooping Tongue Function Mild impairment Observations of Tongue at Rest Within normal limits Tongue Protrusion Within normal limits Nasality Within normal limits Phonation Within normal limits Respiratory Sufficiency Within normal limits Comment Noted overall slowness with movement during [facility] . Food and Liquid Trials Position During Assessment Upright (90 degrees) Liquids Trialed Ice chips,Thin Solids Trialed Regular Administration Type Self-feeding Oral Impairment Within functional limits Oral Phase Comments Adequate mastication and manipulation without anterior loss of bolus or oral residue post PO trials. Pharyngeal Impairment Within functional limits Pharyngeal Phase Comments Increased effort and time required to initiate dry swallow when prompted. No delay or difficulty observed during PO trials. No obvious signs of aspiration or penetration observed. We discussed that his difficulty initiating swallow may be due to dryness of the mouth which could be a side effect of medication. Recommend keeping water available at all times and increasing sauces/gravies with meals. Patient verbalized understanding. Comment Not fully assessed due to limited PO trials. Findings Swallowing Function Within functional limits Severity of Swallow Impairment Within functional limits Comments Mouth dryness Prognosis Good Impact on Safety and Functioning No limitations Recommendations Instrumental Assessment No Swallowing Treatment No Recommended Solids Regular Recommended Liquids Thin Other Recommendations Extra sauces/gravies, alternate solids/liquids Medication Recommendations As Tolerated Education Patient/Caregiver Education Described results of evaluation,Patient expressed understanding of evaluation Speech-Language Pathology Speech/Language Eval [facility] Adult Cognitive Linguistic Eval Start: 12/24/20 11:25 Freq: Status: Active Protocol: Document 12/24/20 11:25 [facility] (Rec: 12/24/20 11:28 [facility] [id number]) Adult Cognitive Linguistic Evaluation Vision Vision Status Impaired Comments reading glasses Informal Assessment Receptive Language Normal Yes Expressive Language Normal Yes Pragmatic Language Normal No Pragmatic Language Impairment(s) Flat affect Speech Normal No Speech Impairment(s) Slow speech rate Cognition Normal Did not assess, discussed with OT Findings/Results Findings Speech is 100% intelligible. Patient reports he notices some mild slurring of speech, which could again be due to dry mouth or side effect of medication. Patient was able to follow 2 and 3 step directions without difficulty. No impairments noted in word finding. Patient presents with flat affect, but unsure whether or not this is his baseline.
[2020-12-24 12:52] VITALS: BP 143/66; PULSE 60; RESP 18; TEMP 36.7; O2SAT 96
--- NOTE | 2020-12-24 13:31 | P.DS_ITS ---
History of Present Illness History of Present Illness Date Patient Seen: 12/24/20 Time Patient Seen: 13:31 Chief complaint: Translaminar Interbody Fusion/Laminotomy Narrative: Patient has been having chronic back pain and worsening lumbar radiculopathy. Patient had previous lumbar laminectomies with recent worsening of back pain and left lower extremity pain weakness and numbness. Patient failed multiple conservative management with worsening pain weakness and numbness in his lower extremity. Patient has been having difficulty performing activity of daily living. After discussing risks benefits of treatment options, patient elected proceed with surgery. Discharge Providers Provider Date of admission: 12/21/20 06:07 Discharge Date: 12/24/20 Primary care physician: Dalton Proctor MD Consults: 12/16/20 12:49 Consult to Anesthesiology Routine Comment: Consulting Provider: Anesthesiologist Reason for consultation: Surgeon requested re: Cardiac history 12/21/20 12:20 Consult to Occupational Therapy Evaluate & Treat Comment: Physician Instructions: Evaluate and treat Consult to Physical Therapy Evaluate & Treat Comment: Physician Instructions: Evaluate and Treat 12/23/20 16:33 Consult to Hospitalist Service Routine Comment: Consulting Provider: Rohan Meredith Reason for consultation: Slurred speech Has provider been notified: Yes 12/23/20 18:51 Consult to Discharge Planning Routine Comment: Consult to Occupational Therapy Evaluate & Treat Comment: Physician Instructions: Evaluate and treat Consult to Physical Therapy Evaluate & Treat Comment: Physician Instructions: Evaluate and Treat Consult to Speech Therapy Evaluate & Treat Comment: Physician Instructions: Evaluate and treat Discharge provider: Laci Newton PA-C Summary Hospital Course Discharge Diagnosis: L3-4, L4-5 spondylolisthesis Spinal stenosis with radiculopathy History of laminectomies with epidural scarring and post laminectomy syndrome Status post L3-4, L4-5 Postero-lateral and posterior interbody fusion, L3-4, L4- 5 interbody cage placement, L3-4, L4-5 decompressive laminectomy with bilateral facetecomies, L3-4, L4-5 Posterior segmental instrumentation, [place] of bone marrow from iliac crest, Utilization of microsurgical technique and operating microscope Hospital Course: Patient was admitted to the hospital following the above-listed procedure for the above-listed diagnosis. Following the procedure the patient has been convalescing appropriately in his pain has been managed with his cu rrent pain management regimen. Despite adequate pain control the patient has had difficulty ambulating with the assistance of physical therapy. Throughout his time in the hospital the patient has denied fever, chills, nausea, chest pain, shortness of breath, or urinary retention. Patient has reported good sensation throughout the bilateral lower extremities light touch. Sequential compression devices have been used for DVT prophylaxis. Throughout his stay in the hospital the patient has been ambulating with the assistance of a front wheeled walker and has avoided bending, twisting, or lifting in excess of 10 lb. Status at Discharge Cognitive/behavioral status at discharge: oriented Functional status at discharge: uses cane/walker Overall status at discharge: patient is progressing back to baseline Exam Vital Signs (past 8 hours): - 12/24/20 08:00 12/24/20 08:51 12/24/20 12:52 Temperature 98.4 F 98.1 F Pulse Rate 82 83 60 Respiratory Rate 16 18 Blood Pressure 113/67 113/67 143/66 H Pulse Oximetry 97 96 Oxygen Delivery Method Room Air Oxygen Flow Rate 0 Narrative Exam Narrative: 85-year-old male resting comfortably in bed in no apparent distress. Lumbar dressing is Clean, dry, intact.. Motor functions intact bilateral lower extremities. Sensation grossly intact to light touch bilateral lower extremities. Const General: cooperative Orientation: alert and oriented x3 Objective Labs Result Diagrams: 12/24/20 05:30 12/24/20 05:30 Labs: Laboratory Results - last 24 hr 12/23/20 12/23/20 12/23/20 17:45 17:45 17:45 WBC 13.0 H RBC 3.29 L Hgb 10.6 L Hct 32.1 L MCV 97.4 MCH 32.2 MCHC 33.0 RDW 13.7 Plt Count 125 L Neut % (Auto) Lymph % (Auto) [place] % (Auto) Eos % (Auto) Baso % (Auto) Neut # (Auto) Lymph # (Auto) [place] # (Auto) Eos # (Auto) Baso # (Auto) PT 12.3 INR 1.1 Sodium 135 L Potassium 4.8 Chloride 102 Carbon Dioxide 28 BUN 29 H Creatinine 0.99 Estimated GFR > 60.0 BUN/Creatinine Ratio 29.3 H Glucose 102 Hemoglobin A1c Calcium 8.4 Total Bilirubin 0.5 AST 44 ALT 24 Alkaline Phosphatase 51 Total Protein 6.1 L Albumin 3.3 L Globulin 2.8 Albumin/Globulin Ratio 1.2 Triglycerides Cholesterol LDL Cholesterol, Calc HDL Cholesterol 12/24/20 12/24/20 12/24/20 05:30 05:30 05:30 WBC 10.0 RBC 3.02 L Hgb 9.9 L Hct 29.6 L MCV 97.9 MCH 32.6 MCHC 33.3 RDW 13.8 Plt Count 112 L Neut % (Auto) 67.4 Lymph % (Auto) 16.6 L [place] % (Auto) 13.0 Eos % (Auto) 2.6 Baso % (Auto) 0.4 Neut # (Auto) 6700 Lymph # (Auto) 1700 [place] # (Auto) 1300 H Eos # (Auto) 300 Baso # (Auto) 0 PT INR Sodium 132 L Potassium 4.9 Chloride 102 Carbon Dioxide 26 BUN 34 H Creatinine 1.20 Estimated GFR 57.5 L BUN/Creatinine Ratio 28.3 H Glucose 108 Hemoglobin A1c 5.5 Calcium 8.3 L Total Bilirubin 0.4 AST 35 ALT 21 Alkaline Phosphatase 48 Total Protein 5.6 L Albumin 2.9 L Globulin 2.7 Albumin/Globulin Ratio 1.1 Triglycerides Cholesterol LDL Cholesterol, Calc HDL Cholesterol 12/24/20 05:30 WBC RBC Hgb Hct MCV MCH MCHC RDW Plt Count Neut % (Auto) Lymph % (Auto) [place] % (Auto) Eos % (Auto) Baso % (Auto) Neut # (Auto) Lymph # (Auto) [place] # (Auto) Eos # (Auto) Baso # (Auto) PT INR Sodium Potassium Chloride Carbon Dioxide BUN Creatinine Estimated GFR BUN/Creatinine Ratio Glucose Hemoglobin A1c Calcium Total Bilirubin AST ALT Alkaline Phosphatase Total Protein Albumin Globulin Albumin/Globulin Ratio Triglycerides 138 Cholesterol 111 L LDL Cholesterol, Calc 51 HDL Cholesterol 32 L [facility] Medical History Acromioclavicular joint separation, type 2 CAD (coronary artery disease) (~2007) Cervical stenosis of spinal canal Chronic back pain Colon polyps (~2010) CVA (cerebral vascular accident) (2016) Discoloration of skin Facet arthropathy, lumbar Foraminal stenosis of lumbosacral region Gait instability H/O: stroke (04/10/16) Hyperlipidemia Hypertension (~2016) Leg pain, bilateral Lumbar post-laminectomy syndrome Lumbosacral spondylosis Measles Mumps Neuropathy Osteoarthritis PAD (peripheral artery disease) Peripheral neuropathy (~1979) Rotator cuff impingement syndrome of right shoulder Sick sinus syndrome Skin cancer Skin infection Spinal stenosis Spinal stenosis of lumbar region without neurogenic claudication Spondylolisthesis at L4-L5 level Squamous cell skin cancer (~2015) Syncope Vertigo (~2013) Vision disorder Surgical History History of lumbar laminectomy (1988) History of lumbar laminectomy (1952) History of surgery (2007) History of surgery (1952) History of vasectomy Hx of bilateral cataract extraction 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 Mother No problems noted. Brother Diabetes mellitus Hypertension Hyperlipidemia Grandfather No problems noted. 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 His condition has slowly but gradually improved following surgery. Plan of Treatment: Patient is to continue working on ambulation with the assistance of a front wheeled walker. Patient is to avoid bending, twisting, or lifting in excess of 10 lb. Current pain management regimen is to be continued as it is adequately controlled the patient's pain level at this time. Aspirin 81 mg twice daily is to be added to his home medications for prophylaxis. First postoperative visit in clinic is scheduled for 2 weeks following discharge from hospital. Patient is to contact clinic with any concerns or questions. Any signs of increased redness, swelling, discharge, pain, or warmth from the incision site should be reported to the clinic. Patient is to remain weight-bearing as tolerated with the assistance of a front wheeled walker and he is to avoid bending, twisting, or lifting in excess of 10 lb. Discharge Plan Discharge Plan Patient Disposition: SNF Transfer to: [facility] Discharge orders & Medications Prescriptions: New hydrocodone-acetaminophen 5-325 mg Tablet 2 tab PO Q4HR PRN (Reason: Pain, Severe (7-10)) Qty: 42 RF: 0 aspirin 81 mg tablet,delayed release (DR/EC) 81 mg PO BID Qty: 90 RF: 0 Continued (DME) Disabled Parking See Rx Instructions .ROUTE .MEDSUPPLY Qty: 1 RF: 0 gabapentin 100 mg capsule 100 mg PO BEDTIME Qty: 90 RF: 3 clopidogrel 75 mg tablet 75 mg PO DAILY Qty: 90 RF: 3 losartan 100 mg tablet 100 mg PO DAILY RF: 0 metoprolol succinate 25 mg Tablet Extended Release 24 Hr 25 mg PO DAILY RF: 0 gabapentin 400 mg capsule 400 mg PO BID RF: 0 acetaminophen [Tylenol] 325 mg capsule 325 mg PO DAILY PRN (Reason: Pain) RF: 0 rosuvastatin 20 mg tablet 20 mg PO DAILY RF: 0 Follow up/Referrals: Dalton Proctor MD [Primary Care Provider] - Diet/Activity/Treatments Diet: Diet as Tolerated Activity: Ambulation with the assistance of a front wheeled walker. Avoid bending, twisting, or lifting in excess of 10 lb. Skin/Wound/Dressing Care Report to your healthcare provider any signs of infection, such as:: chills, fever, night sweats, increased pain, unusual drainage and unusual redness Dressing: Dressing over the incision site can be changed as needed if it becomes damaged or soiled. Other wound treatment: Avoid placing topical ointments over the incision site or soaking the incision site. [facility] Rehabilitation [facility] Reason for rehabilitation: Post-operative therapy Rehab type: Physical therapy and Occupational therapy Visit Report/Discharge Packet Instructions: DI for Prescription Opioid Use, DI for Transforaminal Lumbar Interbody Fusion Stand Alone Forms: Surgery Discharge Discharge Data Primary Care Provider: Dalton Proctor
--- NOTE | 2020-12-24 13:57 | CM.DPNOTE ---
Faxed [facility] & signed med list/prescriptions to [facility] gisela Albrecht on 12/24/20. Fax confirm. received. Melvi Tavarez CM Asst.
--- NOTE | 2020-12-24 14:07 | PC.NURSE ---
Spoke with Dr. Proctor regarding pt's admission status and discharge plan, informed him that the hospitalist was consulted and has cleared him for DC. Dr. Proctor okay with DC, will see pt once DC'd from SNF.
[2020-12-24 14:17] LABS: COVID19 -Nasal RAPID Negative (Negative)
--- NOTE | 2020-12-24 14:32 | CM.DPNOTE ---
Faxed Covid 19 vaccine card to [facility] per [facility] on 12/24/20. Received fax confirmation. Also uploaded to EMR. CARIDAD [employer].
--- NOTE | 2020-12-24 14:33 | PC.NURSE ---
Drsg change performed. Unable to assess incisions as Xeroform remained intact. Bruising noted at distal end of periwound skin, no erythema or warmth. Covrsite Plus applied.
--- NOTE | 2020-12-24 15:15 | PT-IP ANOTE ---
Per RN and CM, pt discharging to SNF at 1600. Hold PM treat.
[2020-12-24 15:30] VITALS: BP 103/61; PULSE 79; RESP 16; TEMP 36.7; O2SAT 96
--- NOTE | 2020-12-24 15:31 | PC.NURSE ---
Called Milagro, nurse at [facility] for her to call back to give report for transfer.
--- NOTE | 2020-12-24 17:12 | PC.NURSE ---
Evening Shift Note- [facility] scheduled to pickup up patient at 1600. Transporter had to leave to warehouse order picker another patient because patient was not ready to leave due to need to use restroom. IV line removed and bandaid applied. tele monitor removed. All patient belongings packed up. Patient left with [facility] transported via wheelchair at 1630. Report called to admit nurse Humphrey by this RN.
--- NOTE | 2020-12-25 14:24 | CM.DPNOTE ---
DC Note Late Entry DC order was placed 12.24.20, spoke w/patient and spouse, both agreeable to DC to [facility], so w/c transport was arranged and completed and signed DC ppk/med list were faxed to [facility]. Coordination through December, [facility] w/much assist from CHILANGO Ogden. COVID-19 vaccination card brought in by spouse and faxed to [facility] Plan: DC to [facility] 12.24.20 via w/c JW
== END 2020-12-24 16:30 | DRG 453 ==
PROVIDERS: Internal Medicine; Admitting Provider Orthopaedic Surgery Orthopaedic Surgery of the Spine; Family Provider Internal Medicine; PCP Internal Medicine; Referring Provider Orthopaedic Surgery Orthopaedic Surgery of the Spine; Visit Provider Orthopaedic Surgery Orthopaedic Surgery of the Spine
PROC: 0SG10AJ Fusion of 2 or more Lumbar Vertebral Joints with Interbody Fusion Device, Posterior Approach, Anterior Column, Open Approach (ICD-10-PCS; principal; 2020-12-21 07:45)
DX: M48.061 Spinal stenosis, lumbar region without neurogenic claudication (principal); I63.9 Cerebral infarction, unspecified; Z20.822 Contact with and (suspected) exposure to COVID-19; M43.16 Spondylolisthesis, lumbar region; M96.1 Postlaminectomy syndrome, not elsewhere classified; I10 Essential (primary) hypertension; M47.27 Other spondylosis with radiculopathy, lumbosacral region; I25.10 Atherosclerotic heart disease of native coronary artery without angina pectoris; I48.0 Paroxysmal atrial fibrillation; R47.81 Slurred speech; E78.5 Hyperlipidemia, unspecified; I73.9 Peripheral vascular disease, unspecified; R29.810 Facial weakness; Z95.0 Presence of cardiac pacemaker; Z86.73 Personal history of transient ischemic attack (TIA), and cerebral infarction without residual deficits
CPT/HCPCS: 36415; 70450; 72100; 76000; 80053; 80061; 82962; 83036; 85014; 85018; 85025; 85027; 85610; 87635; 92610; 93880; 97161; 97165; 97530; 97535; C1776; C9803; C9290; J0330; J0690; J1100; J1170; J2405; J2704; J3010

== ENCOUNTER → 2021-10-20 09:07 | Outpatient (CLI) | payer MEDICARE, OTHER, SELFPAY ==
[2020-12-21 13:40] VITALS: BMI 25.7
--- NOTE | 2021-10-20 | DI.ECHO.S_ITS ---
[place] [facility]---------+ [facility] +---------+ : : [address] : [address] : : : : [id number] : : : : Phone: [phone]+ Echocardiogram Report + + :Name: RENUKA ARREDONDO Study Date: 10/20/2021 Height: 69 in : :[facility] ReadingLocation: Weight: 165 lb : : Gender: Male BSA: 1.9 m2 : :: 1935 Age: 86 yrs BP: 129/73 mmHg: :Reason For Study: ASCENDING AORTA ENLARGEMENT : : Performed By: Rip Kellogg : :Referring: JOSE LUIS GONZALES : + + Interpretation Summary The left ventricle is normal in size. The ejection fraction is estimated to be 55-60%. The right ventricle is normal in size and function. There is a pacemaker lead in the right ventricle. No significant valvular pathology seen. Mild atherosclerotic plaque(s) in the aortic arch. 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 4.5 cm in diameter. In August 19, 2020 it was about 4.5 cm in diameter. Procedure: A two-dimensional transthoracic echocardiogram with color flow and Doppler was performed. The study quality was technically adequate. Comparison is made with the echocardiogram of 08/19/20. The suprasternal notch views were difficult to obtain and are suboptimal in quality. The patient was in normal sinus rhythm during the exam. Left Ventricle: The left ventricle is normal in size. Proximal septal thickening is noted. There is no echo evidence for significant left ventricular outflow tract obstruction. There is no thrombus. The ejection fraction is estimated to be 55-60%. There are no focal wall motion abnormalities. Diastolic parameters suggest a relaxation abnormality of the left ventricle, consistent with probable normal filling pressures. Right Ventricle: The right ventricle is normal in size and function. There is a pacemaker lead in the right ventricle. Atria: Both atria are normal in size. Both atria have remained unchanged in size since the prior echo exam. There is a catheter/pacemaker lead seen in the right atrium. There is no Doppler evidence for an atrial septal defect. Mitral Valve: There is mild mitral annular calcification. The mitral valve leaflets are mildly calcified. There is mild mitral regurgitation. Compared to the prior echo study, there has been no change in the severity of mitral regurgitation. Aortic Valve: The aortic valve is trileaflet. The aortic valve opens well. The aortic valve is mildly calcified. There is discrete nodular thickening of the right coronary cusp. There is mild aortic regurgitation. Compared to the prior echo study, there has been no change in the severity of aortic regurgitation. Tricuspid Valve: The tricuspid valve is normal in structure and function. There is trace tricuspid regurgitation. The right ventricular systolic pressure is estimated to be at least 28 mmHg based on an estimated right atrial pressure of 3 mm Hg. Compared to the prior echo exam, there has been a decrease in TR severity. Pulmonic Valve: The pulmonic valve is not well seen, but is grossly normal. There is mild pulmonic regurgitation. Great Vessels: The aortic root is normal size. 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 Mild atherosclerotic plaque(s) in the aortic arch. The pulmonary artery is normal size. The IVC is of normal diameter and collapses greater than 50% with a sniff. This suggests a low right atrial pressure of 3 mm Hg. Pericardium/ Pleura There is no pericardial effusion. There is no pleural effusion. MMode/2D Measurements & Calculations LVIDd: 4.4 cm LVOT diam: 2.4 cm LVIDs: 2.8 cm Ao root diam: 3.9 cm FS: 35.8 % asc Aorta Diam: 4.5 cm EPSS: 0.23 cm IVSd: 0.86 cm LVPWd: 0.73 cm LV martino. diameter/BSA (cm/m^2): 2.3 LV sys. diameter/BSA (cm/m^2): 1.5 LA A2 area: 13.6 cm2 RA long axis: 4.8 cm LA A4 area: 10.6 cm2 RA area: 12.6 cm2 LA length (vol): 4.8 cm RA vol: 27.8 ml LA vol: 25.3 ml RA : 14.6 ml/m2 LA vol index: 13.3 ml/m2 IVC diam: 1.5 cm TAPSE: 1.8 cm Doppler Measurements & Calculations Ao V2 max: 141.7 cm/sec LVOT Max Dean: 92.3 cm/sec Ao V2 mean: 106.6 cm/sec LV V1 max P.4 mmHg Ao max P.0 mmHg LV V1 VTI: 16.0 cm Ao mean P.9 mmHg BRIDGETTE(I,D): 2.2 cm2 Ao V2 VTI: 31.7 cm BRIDGETTE(V,D): 2.9 cm2 sev ratio: 0.50 BRIDGETTE indexed to BSA (cm^2/m^2): 1.2 AI P1/2t: 696.5 msec AI dec slope: 166.8 cm/sec2 MV E max dean: 55.6 cm/sec TR max dean: 248.4 cm/sec MV A max dean: 98.9 cm/sec TR max P.7 mmHg MV E/A: 0.56 PA V2 max: 73.6 cm/sec Med Peak E' Dean: 5.6 cm/sec PA V2 mean: 56.6 cm/sec E/E' med: 10.0 PA mean P.3 mmHg Lat Peak E' Dean: 5.5 cm/sec PA pr(Accel): 32.8 mmHg E/E' lat: 10.1 E/e' average: 10.0 MV dec time: 0.20 sec SV(LVOT): 70.6 ml Reading Physician:05:55 PM
== END ==
PROVIDERS: Family Provider Internal Medicine; PCP Internal Medicine; Referring Provider Internal Medicine Cardiovascular Disease; Visit Provider Internal Medicine Cardiovascular Disease
DX: I08.0 Rheumatic disorders of both mitral and aortic valves (principal); I77.89 Other specified disorders of arteries and arterioles; I70.0 Atherosclerosis of aorta
CPT/HCPCS: 93306

== ENCOUNTER → 2021-11-11 06:47 | Outpatient (CLI) | payer MEDICARE, OTHER, SELFPAY ==
[2020-12-21 13:40] VITALS: BMI 25.7
[2021-11-11 08:23] LABS: Add Manual Diff / Slide Review NO; Basophils Absolute Auto 0 /uL (0-100); Basophils Percent Auto 0.6 % (0-2); Eosinophils Absolute Auto 200 /uL (0-450); Eosinophils Percent Auto 3.1 % (2-4); Hematocrit 40.9 % (41-53); Hemoglobin 13.5 g/dL (13.5-17.5); Lymphocytes Absolute Auto 2000 /uL (1100-4500); Lymphocytes Percent Auto 31.9 % (25-40); Mean Corpuscular HGB Conc 32.9 % (30-36); Mean Corpuscular Hemoglobin 31.8 PG (26-34); Mean Corpuscular Volume 96.5 fL (80-100); Monocytes Absolute Auto 700 /uL (0-900); Monocytes Percent Auto 11.5 % (3-14); Neutrophils Absolute Auto 3300 /uL (1500-7000); Neutrophils Percent Auto 52.9 % (50-75); Platelet Count 190 X10^3/uL (150-400); Red Blood Cell Count 4.24 X10^6/uL (4.5-5.9); Red Cell Distribution Width 13.5 % (11.6-14.8); White Blood Cell Count 6.3 X10^3/uL (4.5-11.0)
[2021-11-11 08:57] LABS: Alanine Aminotransferase 27 IU/L (<50); Albumin 4.3 g/dL (3.5-5.0); Albumin Globulin Ratio 1.3 (1.0-2.8); Alkaline Phosphatase 91 U/L (38-126); Aspartate Aminotransferase 34 IU/L (17-59); BUN Creatinine Ratio 23.3 (6-22); Bilirubin Total 0.6 mg/dL (0.2-1.3); Blood Urea Nitrogen 21 mg/dL (9-20); Calcium 8.7 mg/dL (8.4-10.2); Carbon Dioxide 29 mmol/L (22-32); Chloride 106 mmol/L (98-107); Cholesterol 203 mg/dL (140-199); Estimated Glomerular Filt Rate > 60 mL/min (>60); Globulin 3.3 g/dL (1.7-4.1); Glucose 99 mg/dL (80-110); HDL Cholesterol 34 mg/dL (40-60); HEMOLYSIS < 15 (0-50); LDL Cholesterol Calculated 131 mg/dL (<100); Potassium 4.3 mmol/L (3.4-5.1); Sodium 141 mmol/L (137-145); Total Protein 7.6 g/dL (6.3-8.2); Triglycerides 191 mg/dL (35-150)
== END ==
PROVIDERS: Family Provider Internal Medicine; PCP Internal Medicine; Referring Provider Nurse Practitioner Acute Care; Visit Provider Nurse Practitioner Acute Care
DX: E78.5 Hyperlipidemia, unspecified (principal); I73.9 Peripheral vascular disease, unspecified
CPT/HCPCS: 36415; 80053; 80061; 85025

== ENCOUNTER 2022-01-18 13:20 | Observation (INO) | payer MEDICARE, OTHER, SELFPAY ==
[2020-12-21 13:40] VITALS: BMI 25.7
[2022-01-18] VITALS (20 sets, daily range): BP systolic 80–122; BP diastolic 50–74; PULSE 74–94; RESP 11–22; TEMP 36.6–37.2; O2SAT 95–98; BMI 25.8
--- NOTE | 2022-01-18 13:27 | DI.RAD.S_ITS ---
PROCEDURE: XR CHEST 1V INDICATIONS: Chest pain TECHNIQUE: One view of the chest was acquired. COMPARISON: [facility], CR, XR CHEST 1V, 10/17/2018, 15:20. FINDINGS: Surgical changes and devices: Left chest wall 2 lead cardiac pacing device. Lungs and pleura: Lungs are clear. No pleural effusions or pneumothorax. Mediastinum: Mediastinal contours appear normal. Heart size is normal. Bones and chest wall: No suspicious bony lesions. Overlying soft tissues appear unremarkable. IMPRESSION: No acute cardiopulmonary process demonstrated radiographically. Dictated by: Pardeep Ga M.D. on 01/18/2022 at 14:20 Approved by: Pardeep Ga M.D. on 01/18/2022 at 14:20
[2022-01-18 13:49] LABS: Add Manual Diff / Slide Review NO; Basophils Absolute Auto 0 /uL (0-100); Basophils Percent Auto 0.3 % (0-2); Eosinophils Absolute Auto 100 /uL (0-450); Eosinophils Percent Auto 0.5 % (2-4); Hematocrit 38.9 % (41-53); Hemoglobin 13.4 g/dL (13.5-17.5); Lymphocytes Absolute Auto 1000 /uL (1100-4500); Lymphocytes Percent Auto 9.1 % (25-40); Mean Corpuscular HGB Conc 34.4 % (30-36); Mean Corpuscular Hemoglobin 33.2 PG (26-34); Mean Corpuscular Volume 96.7 fL (80-100); Monocytes Absolute Auto 1100 /uL (0-900); Monocytes Percent Auto 9.9 % (3-14); Neutrophils Absolute Auto 8500 /uL (1500-7000); Neutrophils Percent Auto 80.2 % (50-75); Platelet Count 159 X10^3/uL (150-400); Red Blood Cell Count 4.03 X10^6/uL (4.5-5.9); Red Cell Distribution Width 13.6 % (11.6-14.8); White Blood Cell Count 10.6 X10^3/uL (4.5-11.0)
[2022-01-18 14:02] LABS: Alanine Aminotransferase 23 IU/L (<50); Albumin 4.3 g/dL (3.5-5.0); Albumin Globulin Ratio 1.3 (1.0-2.8); Alkaline Phosphatase 92 U/L (38-126); Aspartate Aminotransferase 30 IU/L (17-59); BUN Creatinine Ratio 32.5 (6-22); Bilirubin Total 0.6 mg/dL (0.2-1.3); Blood Urea Nitrogen 27 mg/dL (9-20); Calcium 8.9 mg/dL (8.4-10.2); Carbon Dioxide 26 mmol/L (22-32); Chloride 105 mmol/L (98-107); Creatine Kinase 132 U/L (55-170); Estimated Glomerular Filt Rate > 60 mL/min (>60); Globulin 3.4 g/dL (1.7-4.1); Glucose 89 mg/dL (80-110); HEMOLYSIS < 15 (0-50); Lipase 121 U/L (23-300); Magnesium 1.7 mg/dL (1.6-2.3); Potassium 4.6 mmol/L (3.4-5.1); Sodium 138 mmol/L (137-145); Total Protein 7.7 g/dL (6.3-8.2)
[2022-01-18 14:13] LABS: Troponin I < 0.012 ng/mL (0.01-0.034)
[2022-01-18 14:17] LABS: CKMB % Relative Index 3.9 % (1.5-5.0); Creatine Kinase MB 5.12 ng/mL (<2.37)
--- NOTE | 2022-01-18 14:33 | ED.GENADULT ---
HPI - General Adult General Chief complaint: Weakness Stated complaint: Fall / Gen Weakness Time Seen by Provider: 01/18/22 13:32 Source: patient, family and EMS Mode of arrival: EMS History of Present Illness HPI narrative: 86-year-old gentleman with history of coronary artery disease, pacemaker placement for sick sinus syndrome anticoagulated on apixaban, hypertension who has has been fully vaccinated against COVID and unfortunately is still tested positive today. He states that yesterday he had a mild cough and had a positive COVID test. He contacted his primary care physician and Paxlovid was prescribed. He does not report fevers, chills, dyspnea, orthopnea, chest pain, palpitations, vomiting, diarrhea, changes to taste or smell and no change chronic lower extremity edema. He does note that today he is so weak that he is having trouble even lifting his hands from the bed. He comes in today with a chief complaint of dramatic weakness. Related Data Home Medications Medication Instructions Recorded Confirmed losartan 100 mg tablet 100 mg PO DAILY 03/02/18 04/26/21 rosuvastatin 20 mg tablet 20 mg PO DAILY 12/03/19 04/26/21 acetaminophen 325 mg capsule 325 mg PO DAILY PRN Pain 07/29/20 04/26/21 (Tylenol) metoprolol succinate 25 mg 25 mg PO DAILY 12/14/20 04/26/21 tablet,extended release 24 hr apixaban 5 mg tablet (Eliquis) 5 mg PO BID 04/26/21 04/26/21 Previous Rx's Medication Instructions Recorded Disabled Parking #1 ea 06/15/20 clopidogrel 75 mg tablet 75 mg PO DAILY #90 tabs 12/14/20 gabapentin 400 mg capsule 400 mg PO BID #180 caps 03/29/21 gabapentin 100 mg capsule 100 mg PO BEDTIME #90 caps 11/09/21 nirmatrelvir 300 mg (150 mg x See Rx Instructions PO .COMPLEX 5 01/18/22 2)-ritonavir 100 mg tablet (EUA) days #30 tabs (Paxlovid 300 mg () Allergies Allergy/AdvReac Type Severity Reaction Status Date / Time alprazolam [From Xanax] AdvReac Severe Passed Out Verified 04/26/21 14:31 oxycodone AdvReac Severe Passed Out Verified 04/26/21 14:31 Review of Systems Review of Systems Narrative: Remainder of complete review of systems is otherwise unremarkable except for that included in the HPI. Patient History Medical History Acromioclavicular joint separation, type 2 CAD (coronary artery disease) (~2007) Cervical stenosis of spinal canal Chronic back pain Colon polyps (~2010) CVA (cerebral vascular accident) (2015) Facet arthropathy, lumbar Foraminal stenosis of lumbosacral region Gait instability H/O: stroke (04/10/16) Hyperlipidemia Hypertension (~2016) Lumbar post-laminectomy syndrome Lumbosacral spondylosis Measles Mumps Neuropathy Osteoarthritis PAD (peripheral artery disease) Peripheral neuropathy (~1979) Peripheral vascular disease Rotator cuff impingement syndrome of right shoulder Sick sinus syndrome Skin cancer Spinal stenosis Spinal stenosis of lumbar region without neurogenic claudication Spondylolisthesis at L4-L5 level Squamous cell skin cancer (~2015) Syncope Vertigo (~2013) Vision disorder Surgical History History of lumbar laminectomy (1988) History of lumbar laminectomy (1952) History of surgery (2007) History of surgery (1952) History of vasectomy Hx of bilateral cataract extraction 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 Mother No problems noted. Brother Diabetes mellitus Hypertension Hyperlipidemia Grandfather No problems noted. 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 travel history: other leisure activities: music and other Smoking Status: Former smoker Tobacco: How many years used: 10 Smokeless tobacco user: other quit status: quit date established alcohol intake: current substance use type: does not use Smoking Status: Former smoker alcohol intake frequency: a few times a month Substance Use Type: does not use Exam Initial Vital Signs Initial Vital Signs: Vital Signs Temperature 99.0 F 01/18/22 13:27 Pulse Rate 93 H 01/18/22 13:27 Respiratory Rate 22 01/18/22 13:27 Blood Pressure 117/66 01/18/22 13:27 Pulse Oximetry 98 01/18/22 13:27 Oxygen Delivery Method 01/18/22 13:27 General: Fatigued and appears that he does not feel well but, in no acute distress. Able to give a complete and coherent history. HEENT: Moist mucous membranes, normal sclera with reactive pupils, so tired he reports that is hard to keep his eyes open Neck: No JVD, supple Respiratory: Lungs are clear to auscultation, no wheezing no rales no rhonchi. Full and symmetrical air movement, no accessory muscle use and no tachypnea Cardiac: Regular rate and rhythm, 2/6 systolic murmur Abdomen: Soft, nontender, good bowel tones, no flank pain Skin: Warm and dry, no rashes Neurologic: Dramatic global weakness but otherwise Grossly neurologically intact with no obvious asymmetries or abnormalities Extremities: No trauma, well perfused, 1+ bilateral lower extremity edema Psych: Cooperative, appropriate insight and affect Course Orders Ordered: ED Orders 01/18/22 13:25 BNP [NT-proBNP (BNP-Adult 18+)] Stat Complete Blood Count AUTO DIFF Stat Comprehensive Metabolic Panel Stat Lactate (Lactic Acid) Stat Lipase Stat Magnesium Stat Procalcitonin Stat Troponin & CK Cardiac Panel Stat 01/18/22 13:27 XR chest 1V Stat EKG-12 Lead Stat 01/18/22 13:32 UA dip and micro [Urinalysis and Microscopic] Stat 01/18/22 14:55 Blood Culture Stat 01/18/22 15:00 Respiratory Panel (Film Array) Stat Sodium Chloride (Normal Saline 0.9%) 1,000 mls @ 500 mls/hr IV BOLUS ONE Stop: 01/18/22 17:23 Last Admin: 01/18/22 15:39 Dose: 500 mls/hr Documented By: JAMAR Sodium Chloride (Normal Saline 0.9%) 1,000 mls @ 150 mls/hr IV CONT JOSHUA Discontinued Medications Dexamethasone (Dexamethasone 10 Mg/Ml Vial) 6 mg IV NOW ONE Stop: 01/18/22 15:25 Last Admin: 01/18/22 15:38 Dose: 6 mg Documented By: JAMAR Vital Signs Vital signs: Vital Signs - 8 hr 01/18/22 13:27 01/18/22 14:29 01/18/22 14:30 Temperature 99.0 F Pulse Rate 93 H 91 H 90 Respiratory Rate 22 Blood Pressure 117/66 Pulse Oximetry 98 96 96 Oxygen Delivery Method Room Air 01/18/22 14:44 01/18/22 14:44 01/18/22 14:45 Temperature Pulse Rate 88 89 Respiratory Rate Blood Pressure 99/54 L Pulse Oximetry 96 96 Oxygen Delivery Method 01/18/22 14:59 01/18/22 14:59 01/18/22 15:00 Temperature Pulse Rate 88 94 H Respiratory Rate 20 Blood Pressure 80/50 L Pulse Oximetry 97 96 Oxygen Delivery Method 01/18/22 15:01 01/18/22 15:01 01/18/22 15:03 Temperature Pulse Rate 87 Respiratory Rate Blood Pressure 89/51 L 89/50 L Pulse Oximetry 96 Oxygen Delivery Method 01/18/22 15:03 01/18/22 15:06 01/18/22 15:06 Temperature Pulse Rate 88 91 H Respiratory Rate 14 Blood Pressure 98/57 L Pulse Oximetry 96 96 Oxygen Delivery Method Medical Decision Making Lab Data Result diagrams: 01/18/22 13:25 01/18/22 13:25 Labs: Lab Results 01/18/22 01/18/22 01/18/22 Range/Units 13:25 13:25 13:25 WBC 10.6 (4.5-11.0) X10^3/uL RBC 4.03 L (4.5-5.9) X10^6/uL Hgb 13.4 L (13.5-17.5) g/dL Hct 38.9 L (41-53) % MCV 96.7 (80-100) fL MCH 33.2 (26-34) PG MCHC 34.4 (30-36) % RDW 13.6 (11.6-14.8) % Plt Count 159 (150-400) X10^3/uL Neut % (Auto) 80.2 H (50-75) % Lymph % (Auto) 9.1 L (25-40) % [place] % (Auto) 9.9 (3-14) % Eos % (Auto) 0.5 L (2-4) % Baso % (Auto) 0.3 (0-2) % Neut # (Auto) 8500 H (1352-8086) /uL Lymph # (Auto) 1000 L (5021-3585) /uL [place] # (Auto) 1100 H (0-900) /uL Eos # (Auto) 100 (0-450) /uL Baso # (Auto) 0 (0-100) /uL Sodium 138 (137-145) mmol/L Potassium 4.6 (3.4-5.1) mmol/L Chloride 105 (98-107) mmol/L Carbon Dioxide 26 (22-32) mmol/L BUN 27 H (9-20) mg/dL Creatinine 0.83 (0.66-1.25) mg/dL Estimated GFR > 60 (>60) mL/min BUN/Creatinine Ratio 32.5 H (6-22) Glucose 89 (80-110) mg/dL Calcium 8.9 (8.4-10.2) mg/dL Magnesium 1.7 (1.6-2.3) mg/dL Total Bilirubin 0.6 (0.2-1.3) mg/dL AST 30 (17-59) IU/L ALT 23 (<50) IU/L Alkaline Phosphatase 92 (38-126) U/L Total Creatine Kinase 132 (55-170) U/L CK-MB (CK-2) 5.12 H (<2.37) ng/mL CK-MB (CK-2) Rel Index 3.9 (1.5-5.0) % Troponin I < 0.012 (0.01-0.034) ng/mL Total Protein 7.7 (6.3-8.2) g/dL Albumin 4.3 (3.5-5.0) g/dL Globulin 3.4 (1.7-4.1) g/dL Albumin/Globulin Ratio 1.3 (1.0-2.8) Lipase 121 (23-300) U/L Procalcitonin 0.10 (<0.5) ng/mL Imaging Data Chest x-ray: Radiologist's Impression: FINDINGS:? ? Surgical changes and devices:? Left chest wall 2 lead cardiac pacing device. ? Lungs and pleura:? Lungs are clear.? No pleural effusions or pneumothorax.? ? Mediastinum:? Mediastinal contours appear normal.? Heart size is normal.? ? Bones and chest wall:? No suspicious bony lesions.? Overlying soft tissues appear unremarkable.? ? IMPRESSION:? No acute cardiopulmonary process demonstrated radiographically. ? ? Dictated by: Pardeep Ga M.D. on 01/18/2022 at 14:20? ?? ECG Data Interpretation: Sinus rhythm at a rate of 98 Normal intervals, normal axis No acute ischemic changes MDM Narrative Medical decision making narrative: 86-year-old gentleman with cardiovascular disease who was testing positive for COVID over the last 24 hours and is now so weak he is having trouble keeping his eyes open or even lifting his hands from the bed. He has no signs of COVID pneumonia, no impending respiratory distress, oxygen saturations are in the upper 90s on room air. There is no evidence of concurrent abnormalities such as acute coronary syndrome, congestive heart failure, alternative viral etiologies, stroke, intracranial hemorrhage, or sepsis.. Discussed with his primary care in admitting physician, Dr. Proctor. Because he is being admitted he is no longer a candidate for paxlovid. Will go ahead and give him 6 mg of Decadron but without significant hypoxia he is not going to be a remdesivir candidate as well. Suspect that he will do quite well and simply needs time to work through this acute viral illness until he has some strength back and can return home. Discharge Plan Departure Patient Disposition: Admitted As Inpatient Clinical Impression: COVID-19, Weakness Admit Date/Time: 01/18/22 15:07 Admit Provider: Dalton Proctor
--- NOTE | 2022-01-18 15:09 | P.HP_ITS ---
History of Present Illness History of Present Illness Date Patient Seen: 01/18/22 Time Patient Seen: 15:09 Chief complaint: Fall / Gen Weakness Narrative: 86-year-old male with multiple medical problems including coronary disease hypertension peripheral vascular disease and significant back issues who was diagnosed with [id number] infection and has been progressively increasingly weak at home. This is reached a point where he is really unable to be up and ar ound whatsoever on unable to be cared for in the home setting. Has no respiratory symptoms, beyond a persistent cough but does not feel short of breath etcetera. He presented to the ER where he was evaluated and evaluation there was essentially unremarkable except for his global weakness and mild hypotension (although blood pressures within his usual range) He was not able to be discharged home and is admitted for further evaluation and observation in case he declines Patient History Medical History Acromioclavicular joint separation, type 2 CAD (coronary artery disease) (~2007) Cervical stenosis of spinal canal Chronic back pain Colon polyps (~2010) CVA (cerebral vascular accident) (2015) Facet arthropathy, lumbar Foraminal stenosis of lumbosacral region Gait instability H/O: stroke (04/10/16) Hyperlipidemia Hypertension (~2016) Lumbar post-laminectomy syndrome Lumbosacral spondylosis Measles Mumps Neuropathy Osteoarthritis PAD (peripheral artery disease) Peripheral neuropathy (~1979) Peripheral vascular disease Rotator cuff impingement syndrome of right shoulder Sick sinus syndrome Skin cancer Spinal stenosis Spinal stenosis of lumbar region without neurogenic claudication Spondylolisthesis at L4-L5 level Squamous cell skin cancer (~2015) Syncope Vertigo (~2013) Vision disorder Surgical History History of lumbar laminectomy (1988) History of lumbar laminectomy (1952) History of surgery (2007) History of surgery (1952) History of vasectomy Hx of bilateral cataract extraction 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) Family & Social History Family History Father No problems noted. Mother No problems noted. Brother Diabetes mellitus Hypertension Hyperlipidemia Grandfather No problems noted. Social History: household members spouse lives independently Yes caregiver/support person No Tobacco & Substance use: Smoking Status Former smoker alcohol intake current alcohol intake frequency a few times a month Substance Use Type does not use Meds Home Medications and Allergies Home Medications Medication Instructions Recorded Confirmed Type losartan 100 mg tablet 100 mg PO DAILY 03/02/18 01/19/22 History rosuvastatin 20 mg tablet 20 mg PO DAILY 12/03/19 04/26/21 History Disabled Parking #1 ea 06/15/20 04/26/21 Rx acetaminophen 325 mg capsule 325 mg PO DAILY PRN Pain 07/29/20 01/19/22 History (Tylenol) clopidogrel 75 mg tablet 75 mg PO DAILY #90 tabs 12/14/20 01/19/22 Rx metoprolol succinate 25 mg 25 mg PO DAILY 12/14/20 01/19/22 History tablet,extended release 24 hr gabapentin 400 mg capsule 400 mg PO BID #180 caps 03/29/21 04/26/21 Rx apixaban 5 mg tablet (Eliquis) 2.5 mg PO BID 04/26/21 01/19/22 History gabapentin 100 mg capsule 100 mg PO BEDTIME #90 caps 11/09/21 Rx nirmatrelvir 300 mg (150 mg x See Rx Instructions PO .COMPLEX 5 01/18/22 Rx 2)-ritonavir 100 mg tablet (EUA) days #30 tabs (Paxlovid 300 mg () gabapentin 400 mg capsule 400 mg PO BEDTIME 01/19/22 01/19/22 History pravastatin 40 mg PO DAILY 01/19/22 01/19/22 History Allergies Allergy/AdvReac Type Severity Reaction Status Date / Time alprazolam [From Xanax] AdvReac Severe Passed Out Verified 04/26/21 14:31 oxycodone AdvReac Severe Passed Out Verified 04/26/21 14:31 Review of Systems Review of Systems ROS: Yes All systems reviewed with the patient and are negative except as otherwise documented Exam Vital Signs (past 8 hours): - 01/18/22 13:27 01/18/22 14:29 01/18/22 14:30 Temperature 99.0 F Pulse Rate 93 H 91 H 90 Respiratory Rate 22 Blood Pressure 117/66 Pulse Oximetry 98 96 96 Oxygen Delivery Method Room Air 01/18/22 14:44 01/18/22 14:44 Temperature Pulse Rate 88 Respiratory Rate Blood Pressure 99/54 L Pulse Oximetry 96 Oxygen Delivery Method Oxygen Delivery Method Room Air Narrative Exam Narrative: Elderly male lying on a gurney in the emergency department with an occasional cough looks to be generally fatigued but not in any extremis HEENT unremarkable Neck-no bruits Lungs-good breath sounds deep breathing causes cough no wheezes or crackles Heart-regular rate and rhythm Abdomen-benign Objective Labs Result Diagrams: 01/18/22 13:25 01/18/22 13:25 Labs: Laboratory Results - last 24 hr 01/18/22 01/18/22 01/18/22 13:25 13:25 13:25 WBC 10.6 RBC 4.03 L Hgb 13.4 L Hct 38.9 L MCV 96.7 MCH 33.2 MCHC 34.4 RDW 13.6 Plt Count 159 Neut % (Auto) 80.2 H Lymph % (Auto) 9.1 L [place] % (Auto) 9.9 Eos % (Auto) 0.5 L Baso % (Auto) 0.3 Neut # (Auto) 8500 H Lymph # (Auto) 1000 L [place] # (Auto) 1100 H Eos # (Auto) 100 Baso # (Auto) 0 Sodium 138 Potassium 4.6 Chloride 105 Carbon Dioxide 26 BUN 27 H Creatinine 0.83 Estimated GFR > 60 BUN/Creatinine Ratio 32.5 H Glucose 89 Calcium 8.9 Magnesium 1.7 Total Bilirubin 0.6 AST 30 ALT 23 Alkaline Phosphatase 92 Total Creatine Kinase 132 CK-MB (CK-2) 5.12 H CK-MB (CK-2) Rel Index 3.9 Troponin I < 0.012 Total Protein 7.7 Albumin 4.3 Globulin 3.4 Albumin/Globulin Ratio 1.3 Lipase 121 Procalcitonin 0.10 Assessment & Plan Assessment & Plan narrative: 1. [id number] infection-patient obviously extraordinarily weak in part because of his multiple medical issues and his age in the setting of COVID-19 infection. Fortunately does not appear to have any serious respiratory issues or other serious issues at this time. Given that he is now hospitalized he is not a candidate for an oral antiviral nor a monoclonal antibody therapy. It had been attempted to start him on Paxlovid as an outpatient but this was denied by his insurance company as per his pharmacy requiring prior authorization. Reviewing current literature there is a suggestion that remdesivir given for least 3 days intravenously can reduce risk of progression to severe disease in patients at high risk of progression who have more moderate to mild disease, and or hospitalized either for other reasons or with [id number] COVID-19 disease. I believe that applies in this case and so will give 100 mg remdesivir IV daily x3 or 4 days depending on his clinical course and length of stay I am going to go ahead and start him on dexamethasone though in effort to reduce likelihood of progression to more severe respiratory illness. Fortunately he is fully immunized and boosted against [id number] 2. Coronary artery disease-no evidence of cardiac issue currently. Lab work unremarkable. Continue usual medications although will hold his losartan for now given his modest hypotension 3. Back issues-patient with chronic long-term back issues. Continue his usual medications including gabapentin 4. Chronic shoulder pain-continue patient's usual medications the setting of significant right shoulder issues as well 5. VTE prophylaxis-patient chronic anticoagulated with Eliquis which will be continued and serve as excellent prophylaxis against venous thromboembolism 6. Code status-patient should be a full code in the event of a sudden cardiac or respiratory arrest which is confirmed with patient and ordered COVID-19 COVID-19 status: Positive Result date/Date tested (Pos, Neg/Pending): 01/17/22
[2022-01-18] MEDS: DEXAMETHASONE 10 MG/ML VIAL 6 MG IV (15:38)
[2022-01-18] MEDS: SODIUM CHLORIDE 0.9% 1,000 ML 500 ML IV (15:39)
[2022-01-18 17:46] LABS: Adenovirus Not Detected (Not Detect); B. parapertussis Not Detected (Not Detecte); Bordetella pertussis Not Detected (Not Detecte); Chlamydophila pneumoniae Not Detected (Not Detect); Coronavirus 229E Not Detected (Not Detect); Coronavirus HKU1 Not Detected (Not Detect); Coronavirus NL 63 Not Detected (Not Detect); Coronavirus OC43 Not Detected (Not Detect); Human Metapneumovirus Not Detected (Not Detect); Human Rhinovirus/Enterovirus Not Detected (Not Detect); Influenza A Not Detected (Not Detect); Influenza B Not Detected (Not Detect); Mycoplasma pneumoniae Not Detected (Not Detect); Parainfluenza Virus 1 Not Detected (Not Detect); Parainfluenza Virus 2 Not Detected (Not Detect); Parainfluenza Virus 3 Not Detected (Not Detect); Parainfluenza Virus 4 Not Detected (Not Detect); Respiratory Syncytial Virus Not Detected (Not Detect); SARS- CoV-2 Detected (Not Detecte)
[2022-01-18] MEDS: DEXTROSE 5%-0.9% NS 1,000 ML 80 ML IV (18:30)
[2022-01-18] MEDS: REMDESIVIR 100 MG in SODIUM CHLORIDE 0.9% 230 ML 250 MG IV (19:10)
[2022-01-18 19:45] LABS: Lactate (Lactic Acid) 1.6 mmol/L (0.7-2.1)
[2022-01-18 19:54] LABS: NT-proBNP (BNP-Adult 18+) 85 pg/mL (<450)
[2022-01-18] MEDS: GABAPENTIN 100 MG CAPSULE PO (22:24)
[2022-01-18] MEDS: GABAPENTIN 400 MG CAPSULE PO (22:24)
[2022-01-18] MEDS: APIXABAN 5 MG TABLET PO (22:24)
--- NOTE | 2022-01-19 07:26 | PM.PN.1 ---
Subjective Subjective Date Patient Seen: 01/19/22 Time Patient Seen: 07:26 Interval history: Patient looks to be feeling somewhat better. Still feels very weak and overall bothered by his cough but no other particular symptoms Uneventful evening. He was able to be placed in a regular hospital room eventually yesterday Exam Vital Signs (past 8 hours): Oxygen Delivery Method Room Air Oxygen Flow Rate 0 Objective Labs Result Diagrams: 01/18/22 13:25 01/18/22 13:25 Labs: Laboratory Results - last 24 hr 01/18/22 01/18/22 01/18/22 13:25 13:25 13:25 WBC 10.6 RBC 4.03 L Hgb 13.4 L Hct 38.9 L MCV 96.7 MCH 33.2 MCHC 34.4 RDW 13.6 Plt Count 159 Neut % (Auto) 80.2 H Lymph % (Auto) 9.1 L [place] % (Auto) 9.9 Eos % (Auto) 0.5 L Baso % (Auto) 0.3 Neut # (Auto) 8500 H Lymph # (Auto) 1000 L [place] # (Auto) 1100 H Eos # (Auto) 100 Baso # (Auto) 0 Sodium 138 Potassium 4.6 Chloride 105 Carbon Dioxide 26 BUN 27 H Creatinine 0.83 Estimated GFR > 60 BUN/Creatinine Ratio 32.5 H Glucose 89 Lactate Calcium 8.9 Magnesium 1.7 Total Bilirubin 0.6 AST 30 ALT 23 Alkaline Phosphatase 92 Total Creatine Kinase 132 CK-MB (CK-2) 5.12 H CK-MB (CK-2) Rel Index 3.9 Troponin I < 0.012 NT-Pro-B Natriuret Pep 85 Total Protein 7.7 Albumin 4.3 Globulin 3.4 Albumin/Globulin Ratio 1.3 Lipase 121 Procalcitonin Chlamy pneumoniae PCR Adenovirus (PCR) B. pertussis DNA (PCR) B.parapertussis DNA PCR Coronavirus OC43 (PCR) Coronavirus HKU1 (PCR) Coronavirus 229E (PCR) SARS-CoV-2 (PCR) Coronavirus NL63 (PCR) Human Metapneumovir PCR Influenza Type A (PCR) Influenza Type B (PCR) M. pneumoniae (PCR) Parainfluenza 1 (PCR) Parainfluenza 2 (PCR) Parainfluenza 3 (PCR) Parainfluenza 4 (PCR) RSV (PCR) Entero/Rhino (PCR) 01/18/22 01/18/22 01/18/22 13:25 13:25 15:00 WBC RBC Hgb Hct MCV MCH MCHC RDW Plt Count Neut % (Auto) Lymph % (Auto) [place] % (Auto) Eos % (Auto) Baso % (Auto) Neut # (Auto) Lymph # (Auto) [place] # (Auto) Eos # (Auto) Baso # (Auto) Sodium Potassium Chloride Carbon Dioxide BUN Creatinine Estimated GFR BUN/Creatinine Ratio Glucose Lactate 1.6 Calcium Magnesium Total Bilirubin AST ALT Alkaline Phosphatase Total Creatine Kinase CK-MB (CK-2) CK-MB (CK-2) Rel Index Troponin I NT-Pro-B Natriuret Pep Total Protein Albumin Globulin Albumin/Globulin Ratio Lipase Procalcitonin 0.10 Chlamy pneumoniae PCR Not detected Adenovirus (PCR) Not detected B. pertussis DNA (PCR) Not detected B.parapertussis DNA PCR Not detected Coronavirus OC43 (PCR) Not detected Coronavirus HKU1 (PCR) Not detected Coronavirus 229E (PCR) Not detected SARS-CoV-2 (PCR) Detected H Coronavirus NL63 (PCR) Not detected Human Metapneumovir PCR Not detected Influenza Type A (PCR) Not detected Influenza Type B (PCR) Not detected M. pneumoniae (PCR) Not detected Parainfluenza 1 (PCR) Not detected Parainfluenza 2 (PCR) Not detected Parainfluenza 3 (PCR) Not detected Parainfluenza 4 (PCR) Not detected RSV (PCR) Not detected Entero/Rhino (PCR) Not detected [facility] [place] Medical History Acromioclavicular joint separation, type 2 CAD (coronary artery disease) (~2007) Cervical stenosis of spinal canal Chronic back pain Colon polyps (~2010) CVA (cerebral vascular accident) (2015) Facet arthropathy, lumbar Foraminal stenosis of lumbosacral region Gait instability H/O: stroke (04/10/16) Hyperlipidemia Hypertension (~2016) Lumbar post-laminectomy syndrome Lumbosacral spondylosis Measles Mumps Neuropathy Osteoarthritis PAD (peripheral artery disease) Peripheral neuropathy (~1979) Peripheral vascular disease Rotator cuff impingement syndrome of right shoulder Sick sinus syndrome Skin cancer Spinal stenosis Spinal stenosis of lumbar region without neurogenic claudication Spondylolisthesis at L4-L5 level Squamous cell skin cancer (~2016) Syncope Vertigo (~2013) Vision disorder Surgical History History of lumbar laminectomy (1988) History of lumbar laminectomy (1952) History of surgery (2007) History of surgery (1952) History of vasectomy Hx of bilateral cataract extraction 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 Mother No problems noted. Brother Diabetes mellitus Hypertension Hyperlipidemia Grandfather No problems noted. 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 COVID-19 infection-patient minimally symptomatic at this point. Continue with the plan 4 days of remdesivir. Despite my statement in the H&P that I was starting him on dexamethasone after further review I decided not to do that. There is more evidence to support use of remdesivir without dexamethasone in patients who are basically minimally symptomatic or admitted to the hospital for an alternate diagnosis and found to have COVID-19 as well. Patient does seem to be improved slightly with increased strength etcetera. No change in overall plan. When he improves enough to be able to be managed in the home setting he can likely be discharged hopefully in the next 2-4 days 2. Patient's other medical issues including his coronary disease chronic back pain and shoulder pain issues appear to be stable. Continue usual medications 3. Disposition-patient likely be able to return home when his weakness in overall symptoms from his COVID-19 infection begin to improve. At this point I am not anticipating need for skilled therapies but if he is failing to improve over the next 24-36 hours likely would benefit from some level of physical therapy and/or occupational therapy. Note: Greater than 20 minutes total time was spent on day of service, evaluating the patient on the floor, including examining the patient, discussing clinical course with clinical and nursing staff, reviewing clinical course in the computer, preparing documentation and writing orders for continued management of care, discussing status with family as appropriate, reviewing plans for the next 24 hours with both patient/family and nursing staff as appropriate. Quality VTE Deep Vein Thrombosis/Pulmonary Embolism Present on Admission: No
[2022-01-19 08:00] VITALS: BP 135/77; PULSE 77; RESP 17; TEMP 36.4; O2SAT 99
[2022-01-19] MEDS: GABAPENTIN 400 MG CAPSULE PO ×2 (09:37→22:38)
[2022-01-19] MEDS: REMDESIVIR 100 MG in SODIUM CHLORIDE 0.9% 230 ML 250 MG IV (09:37)
[2022-01-19] MEDS: ATORVASTATIN 20 MG TABLET 40 MG PO (09:37)
[2022-01-19] MEDS: CLOPIDOGREL 75 MG TABLET PO (09:37)
[2022-01-19 09:38] VITALS: PULSE 77
[2022-01-19] MEDS: METOPROLOL ER 25 MG TABLET PO (09:38)
[2022-01-19] MEDS: APIXABAN 5 MG TABLET PO ×2 (09:38→22:38)
[2022-01-19] MEDS: DEXTROSE 5%-0.9% NS 1,000 ML 80 ML IV ×2 (09:43→22:37)
[2022-01-19 10:00] VITALS: O2SAT 97
--- NOTE | 2022-01-19 16:37 | CM.DANOTE ---
DCP/Brief Assessment: Reviewed chart. Patient is a 86yr old male admitted to [facility] with COVID related symptoms. PCP is Dr. Proctor. Primary payor is 1)Medicare 2). DIE ATTACHER did not attempt visit today. Patient currently on treatment for COVID and expected to remain hospitalized for the next 3-4dys. Per provider note if patient weakens during hospitalization he will order PT/OT evaluations. CM team following closely and will plan to touch base with patient prior to d/c. P: Home when stable. Home health to be determined. [facility] Discharge Planning/Care Management CM Discharge Assessment Start: 01/19/22 16:32 Freq: Status: Active Protocol: Document 01/19/22 16:33 KJS (Rec: 01/19/22 16:37 KJ [id number]) Discharge Planning Assessment Assigned Dispensing And Measuring Optician ANDREA Sood Contact Information Jeni Ryder (spouse) # Advance Directives? Yes Advance Directives on File Yes: Dr. Proctor's office has on file History Provided By Medical Record Prior Living Arrangements House Household Members spouse Independent with ADL's Yes: Currently weak due to COVID Is patient alert and oriented? Yes Caregiver for Another No Barriers to Discharge No Comment Anticipate patient will return home once stable. Patient currently being treated for COVID with remdesivir. Unclear if patient will need PT/OT evaluations once treatment completed. Discharge Plan Home Transportation Arrangement Patients Jnei will provide transportation from facility Referrals Initiated Other Additional Comment Too soon to tell. CM team following closely. Anticipate home when stable, may need HH depending on progress. Review Status In Process Next Review Type Continued Stay Review
[2022-01-19 19:00] VITALS: O2SAT 94
[2022-01-19 19:15] VITALS: BP 162/79; PULSE 69; RESP 16; TEMP 36.6; O2SAT 94
[2022-01-19 19:50] VITALS: O2SAT 94
[2022-01-19] MEDS: GABAPENTIN 100 MG CAPSULE PO (22:38)
--- NOTE | 2022-01-20 06:55 | PC.NURSE ---
End of shift note. Care of patient from . AAOX4, denies pain, BS clear diminished, on RA O2 Sats 95%. Uses call light appropriately, up to BR with SBA. Hopes to go home today.
[2022-01-20 08:07] VITALS: O2SAT 97
[2022-01-20] MEDS: CLOPIDOGREL 75 MG TABLET PO (08:07)
[2022-01-20] MEDS: GABAPENTIN 400 MG CAPSULE PO (08:07)
[2022-01-20] MEDS: APIXABAN 5 MG TABLET PO (08:07)
[2022-01-20] MEDS: ATORVASTATIN 20 MG TABLET 40 MG PO (08:07)
[2022-01-20 08:08] VITALS: PULSE 69
[2022-01-20] MEDS: METOPROLOL ER 25 MG TABLET PO (08:08)
--- NOTE | 2022-01-20 08:08 | PM.DS.1 ---
History of Present Illness History of Present Illness Date Patient Seen: 01/20/22 Time Patient Seen: 08:08 Chief complaint: Fall / Gen Weakness Narrative: 86-year-old male with multiple medical problems including coronary disease hypertension peripheral vascular disease and significant back issues who was diagnosed with [id number] infection and has been progressively increasingly weak at home. This is reached a point where he is really unable to be up and around whatsoever on unable to be cared for in the home setting. Has no respiratory symptoms, beyond a persistent cough but does not feel short of breath etcetera. He presented to the ER where he was evaluated and evaluation there was essentially unremarkable except for his global weakness and mild hypotension (although blood pressures within his usual range) He was not able to be discharged home and is admitted for further evaluation and observation in case he declines Discharge Providers Provider Date of admission: 01/18/22 15:07 Discharge Date: 01/20/22 Primary care physician: Dalton Proctor MD Discharge provider: Dalton Proctor MD Summary Hospital Course Discharge Diagnosis: 1. SARS-CoV-2 infection 2. Generalized weakness 3. Hypertension 4. Coronary disease 5. Peripheral vascular disease 6. Chronic back pain 7. Lumbar post-laminectomy syndrome 8. Chronic shoulder pain 9. Sick sinus syndrome status post pacemaker placement prior to hospitalization Hospital Course: Patient presented as above. He was globally weak although fortunately not showing any serious respiratory symptoms from his COVID-19 infection. He was gently rehydrated with IV fluids. Some of his antihypertensives were held given his modest hypotension upon presentation and admission However blood pressure came back up patient began to feel much improved was able to be up and around limited fashion in his room. He felt like he could probably function at home. His normal antihypertensive regimen is reinstituted Patient did receive remdesivir 100 mg daily intravenously while hospitalized in effort to provide some risk reduction for progression of his infection to something more serious given his age and comorbidities However patient did not show any evidence of progression of his COVID-19 infection and disease during his hospitalization fortunately. He did have some coughing some episodes of coughing but remained without any evidence of hypoxia or respiratory issues beyond the persistent cough Exam Vital Signs (past 8 hours): Oxygen Delivery Method Room Air Oxygen Flow Rate 0 Objective Labs Result Diagrams: 01/18/22 13:25 01/18/22 13:25 COUNTS INCLUDE 234 BEDS AT THE [facility] Medical History Acromioclavicular joint separation, type 2 CAD (coronary artery disease) (~2007) Cervical stenosis of spinal canal Chronic back pain Colon polyps (~2010) CVA (cerebral vascular accident) (2015) Facet arthropathy, lumbar Foraminal stenosis of lumbosacral region Gait instability H/O: stroke (04/10/16) Hyperlipidemia Hypertension (~2016) Lumbar post-laminectomy syndrome Lumbosacral spondylosis Measles Mumps Neuropathy Osteoarthritis PAD (peripheral artery disease) Peripheral neuropathy (~1979) Peripheral vascular disease Rotator cuff impingement syndrome of right shoulder Sick sinus syndrome Skin cancer Spinal stenosis Spinal stenosis of lumbar region without neurogenic claudication Spondylolisthesis at L4-L5 level Squamous cell skin cancer (~2015) Syncope Vertigo (~2013) Vision disorder Surgical History History of lumbar laminectomy (1988) History of lumbar laminectomy (1952) History of surgery (2007) History of surgery (1952) History of vasectomy Hx of bilateral cataract extraction 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 Mother No problems noted. Brother Diabetes mellitus Hypertension Hyperlipidemia Grandfather No problems noted. 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 He had been prescribed Paxlovid prior to being admitted to the hospital. He has does not need to take that upon discharge. He received antiviral therapy here in the hospital. Patient will be seen in the outpatient clinic in approximately 2 weeks time Discharge Plan Discharge Plan Patient Disposition: Home Discharge orders & Medications Prescriptions: Continued (DME) Disabled Parking See Rx Instructions .ROUTE .MEDSUPPLY Qty: 1 0RF Rx Instructions: Patient qualifies for disabled parking as per the attached form. clopidogrel 75 mg tablet 75 mg PO DAILY Qty: 90 3RF gabapentin 400 mg capsule 400 mg PO BID Qty: 180 3RF gabapentin 100 mg capsule 100 mg PO BEDTIME Qty: 90 3RF Rx Instructions: PATIENT SHOULD FOLLOW UP W/PCP COME 03/2022 FOR YEARLY CHECK IN. THANK YOU losartan 100 mg tablet 100 mg PO DAILY Eliquis 5 mg tablet 2.5 mg PO BID gabapentin 400 mg Capsule 400 mg PO BEDTIME pravastatin 40 mg PO DAILY metoprolol succinate 25 mg Tablet Extended Release 24 Hr 25 mg PO DAILY acetaminophen [Tylenol] 325 mg capsule 325 mg PO DAILY PRN (Reason: Pain) rosuvastatin 20 mg tablet 20 mg PO DAILY Discontinued Paxlovid (EUA) 150 mg x 2- 100 mg tablet See Rx Instructions PO .COMPLEX 5 Days Qty: 30 0RF Rx Instructions: take TWO 150 mg tablets of nirmatrelvir with ONE 100 mg tablet of ritonavir twice daily for 5 days PO// PATIENT AWARE OF NOT TAKING HIS PLAVIX/HOLD FOR 5 DAYS. Follow up/Referrals: Dalton Proctor MD [Primary Care Provider] - 2 Weeks Discharge Health Status Multidrug resistant organism: No MDRO Diet/Activity/Treatments Diet: Diet as Tolerated Discharge Data Primary Care Provider: Dalton Proctor Quality VTE Deep Vein Thrombosis/Pulmonary Embolism Present on Admission: No
[2022-01-20 08:09] VITALS: BP 162/79; PULSE 69
[2022-01-20] MEDS: LOSARTAN 50 MG TABLET 100 MG PO (08:09)
[2022-01-20 08:15] VITALS: BP 150/74; PULSE 71; RESP 17; TEMP 36.2; O2SAT 97
[2022-01-20] MEDS: REMDESIVIR 100 MG in SODIUM CHLORIDE 0.9% 230 ML 250 MG IV (09:36)
--- NOTE | 2022-01-20 12:36 | CM.DPC ---
DCP Discharge Home Per MD, pt has improved with his COVID symptoms and is medically stable to d/c home today with no identified barriers to discharge. Per RN, d/c instructions provided and pt discharged home via family POV during SW rounds with the MD this morning. Plan: Patient discharged home via spouse POV and no further d/c needs at this time and outpt f/u. ANDREA Chiang
== END 2022-01-20 10:31 | disposition home or self-care (01) ==
LOC: ED 15:06 → AC 15:35
PROVIDERS: Admitting Provider Internal Medicine; Emergency Provider Emergency Medicine; Family Provider Internal Medicine; PCP Internal Medicine; Referring Provider Emergency Medicine; Visit Provider Internal Medicine
DX: U07.1 COVID-19 (principal); I25.10 Atherosclerotic heart disease of native coronary artery without angina pectoris; G89.29 Other chronic pain; M25.511 Pain in right shoulder; M54.9 Dorsalgia, unspecified; I10 Essential (primary) hypertension; E78.5 Hyperlipidemia, unspecified; I49.3 Ventricular premature depolarization; Z87.891 Personal history of nicotine dependence; Z79.01 Long term (current) use of anticoagulants; Z95.0 Presence of cardiac pacemaker
CPT/HCPCS: 36415; 71045; 80053; 82550; 82553; 83605; 83690; 83735; 83880; 84145; 84484; 85025; 87040; 87633; 93005; 94760; 96365; 96375; 99217; 99219; 99224; 99284; G0378; J1100

== ENCOUNTER 2022-04-13 22:16 | Emergency (ER) | payer MEDICARE, OTHER, SELFPAY ==
[2022-01-18 15:17] VITALS: BMI 25.8
[2022-04-13 22:21] VITALS: BP 193/93; PULSE 89; RESP 20; TEMP 36.7; O2SAT 100
--- NOTE | 2022-04-13 22:29 | DI.CT.S_ITS ---
PROCEDURE: CT CERVICAL SPINE WO CON INDICATIONS: trauma TECHNIQUE: Noncontrast 3 mm thick sections acquired from the skull base to the T4 level. Sagittal and coronal reformats were then constructed. For radiation dose reduction, the following was used: automated exposure control, adjustment of mA and/or kV according to patient size. COMPARISON: Outside Facility, RG, CT C-SPINE WO CONTRAST, 10/06/2016, 13:21. FINDINGS: Image quality: Excellent. Bones: No fractures or subluxation. There is straightening of the cervical lordosis. Multilevel degenerative disc disease and facet joint arthropathy demonstrated throughout the cervical spine. Visualized superior ribs are intact. Soft tissues: Prevertebral soft tissues are normal in thickness. No paravertebral hematomas. No apical pneumothoraces. IMPRESSION: 1. No acute fracture or subluxation. Dictated by: Benjamin Cadena M.D. on 04/14/2022 at 0:08 Approved by: Benjamin Cadena M.D. on 04/14/2022 at 0:09
--- NOTE | 2022-04-13 22:29 | DI.CT.S_ITS ---
PROCEDURE: CT HEAD/BRAIN WO CON INDICATIONS: trauma TECHNIQUE: Noncontrast 4.5 mm thick angled axial sections acquired from the foramen magnum to the vertex, with coronal and sagittal reformats. For radiation dose reduction, the following was used: automated exposure control, adjustment of mA and/or kV according to patient size. COMPARISON: [facility], CT, CT HEAD/BRAIN WO CON, 12/23/2020, 17:04. FINDINGS: Image quality: There is metallic streak artifact from a metal device reportedly on the patient's right eyelid. CSF spaces: Basal cisterns are patent. No extra-axial fluid collections. There is mild to moderate cerebral volume loss, with resultant ventricular and sulcal prominence. Brain: No intracranial hemorrhage, mass, or mass effect. There are subcortical, periventricular and deep white matter hypodensities consistent with jtzj-on-dkgjnnly chronic small vessel ischemic changes. The goode-white matter junction appears preserved. There is intracranial internal carotid artery atherosclerosis. Skull and face: Calvarium and visualized facial bones appear intact, without suspicious lesions. There is a metallic device adjacent to the right globe with associated streak artifact. Sinuses: Visualized sinuses and mastoids are clear. IMPRESSION: 1. No definite acute intracranial abnormality. 2. Mild to moderate chronic white matter small vessel ischemic changes and cerebral volume loss. Dictated by: Benjamin Cadena M.D. on 04/13/2022 at 23:55 Approved by: Benjamin Cadena M.D. on 04/13/2022 at 23:56
[2022-04-13 23:42] VITALS: O2SAT 96
[2022-04-13 23:43] VITALS: BP 167/77; PULSE 71; O2SAT 97
[2022-04-13 23:45] VITALS: BP 167/77; PULSE 72; RESP 13; TEMP 36.8; O2SAT 99
[2022-04-14] VITALS (9 sets, daily range): BP systolic 141–197; BP diastolic 64–88; PULSE 61–73; RESP 9–15; O2SAT 95–98
--- NOTE | 2022-04-14 00:53 | DI.RAD.S_ITS ---
PROCEDURE: XR CHEST 1V INDICATIONS: chest pain TECHNIQUE: One view of the chest was acquired. COMPARISON: [facility], CR, XR CHEST 2 VIEWS, 11/21/2018, 8:01. [facility], CR, XR CHEST 1V, 01/18/2022, 13:38. FINDINGS: Surgical changes and devices: Left chest wall dual lead pacemaker and leads appear similar in position. Lungs and pleura: There is an indistinct peripheral opacity redemonstrated laterally in the left lung base. No definite acute consolidation. No pleural effusions or pneumothorax. Mediastinum: Mediastinal contours appear normal. Heart size is normal. Bones and chest wall: No suspicious bony lesions. Overlying soft tissues appear unremarkable. IMPRESSION: 1. No definite acute cardiopulmonary disease. 2. Indistinct peripheral opacity in the left lung base is suggestive of atelectasis or scarring. Dictated by: Benjamin Cadena M.D. on 04/14/2022 at 1:34 Approved by: Benjamin Cadena M.D. on 04/14/2022 at 1:37
[2022-04-14 01:04] LABS: Add Manual Diff / Slide Review NO; Basophils Absolute Auto 0 /uL (0-100); Basophils Percent Auto 0.3 % (0-2); Eosinophils Absolute Auto 100 /uL (0-450); Eosinophils Percent Auto 1.3 % (2-4); Hematocrit 42.5 % (41-53); Hemoglobin 14.4 g/dL (13.5-17.5); Lymphocytes Absolute Auto 1400 /uL (1100-4500); Mean Corpuscular Hemoglobin 32.6 PG (26-34); Mean Corpuscular Volume 95.9 fL (80-100); Monocytes Absolute Auto 800 /uL (0-900); Monocytes Percent Auto 9.3 % (3-14); Neutrophils Absolute Auto 5800 /uL (1500-7000); Neutrophils Percent Auto 72.1 % (50-75); Platelet Count 203 X10^3/uL (150-400); Red Blood Cell Count 4.43 X10^6/uL (4.5-5.9); Red Cell Distribution Width 13.4 % (11.6-14.8); White Blood Cell Count 8.1 X10^3/uL (4.5-11.0)
[2022-04-14 01:06] LABS: Alanine Aminotransferase 31 IU/L (<50); Albumin 4.4 g/dL (3.5-5.0); Albumin Globulin Ratio 1.1 (1.0-2.8); Alkaline Phosphatase 96 U/L (38-126); Aspartate Aminotransferase 42 IU/L (17-59); BUN Creatinine Ratio 25.3 (6-22); Bilirubin Total 0.5 mg/dL (0.2-1.3); Blood Urea Nitrogen 22 mg/dL (9-20); Calcium 9.1 mg/dL (8.4-10.2); Carbon Dioxide 27 mmol/L (22-32); Chloride 104 mmol/L (98-107); Creatine Kinase 303 U/L (55-170); Estimated Glomerular Filt Rate > 60 mL/min (>60); Globulin 3.9 g/dL (1.7-4.1); Glucose 117 mg/dL (80-110); HEMOLYSIS 19 (0-50); Lipase 107 U/L (23-300); Magnesium 2.2 mg/dL (1.6-2.3); Potassium 4.7 mmol/L (3.4-5.1); Sodium 141 mmol/L (137-145); Total Protein 8.3 g/dL (6.3-8.2)
[2022-04-14 01:17] LABS: Troponin I < 0.012 ng/mL (0.01-0.034)
[2022-04-14 01:21] LABS: CKMB % Relative Index 4.1 % (1.5-5.0)
--- NOTE | 2022-04-14 02:42 | ED.FALL ---
HPI - Fall General Chief Complaint: Trauma Stated Complaint: Fall on thinners Time Seen by Provider: 04/14/22 02:42 Source: patient Mode of arrival: EMS Limitations: no limitations History of Present Illness HPI Narrative: This is a 86-year-old male with prior pacemaker for sick sinus syndrome, hypertension, cardiac stents and TIAs on Eliquis and Plavix who had a ground level fall witnessed on Eliquis and Plavix. Patient was confused after hitting his head. He had a witnessed fall with positive loss of consciousness and patient does not recall the event. Repetitive with family. Patient's mentation has improved over time. Denies headache or syncope. He has a mild headache at this time. No neck or back pain, no chest pain or shortness of breath, no nausea or vomiting, no bowel or bladder incontinence. Patient has chronic weakness bilateral lower extremities after back surgery and normally uses a walker but does not appreciate any new numbness, tingling or weakness. Related Data Home Medications Medication Instructions Recorded Confirmed losartan 100 mg tablet 100 mg PO DAILY 03/02/18 02/25/22 acetaminophen 325 mg capsule 325 mg PO DAILY PRN Pain 07/29/20 02/25/22 (Tylenol) metoprolol succinate 25 mg 25 mg PO DAILY 12/14/20 02/25/22 tablet,extended release 24 hr apixaban 5 mg tablet (Eliquis) 2.5 mg PO BID 04/26/21 02/25/22 gabapentin 400 mg capsule 400 mg PO BEDTIME 01/19/22 02/25/22 pravastatin 40 mg tablet 40 mg PO BEDTIME 02/25/22 02/25/22 Previous Rx's Medication Instructions Recorded Disabled Parking #1 ea 06/15/20 clopidogrel 75 mg tablet 75 mg PO DAILY #90 tabs 12/14/20 gabapentin 400 mg capsule 400 mg PO BID #180 caps 02/01/22 Allergies Allergy/AdvReac Type Severity Reaction Status Date / Time alprazolam [From Xanax] AdvReac Severe Passed Out Verified 02/25/22 10:33 oxycodone AdvReac Severe Passed Out Verified 02/25/22 10:33 Review of Systems Review of Systems ROS Unobtainable: All systems reviewed & are unremarkable except as noted in HPI and below Patient History Medical History Acromioclavicular joint separation, type 2 CAD (coronary artery disease) (~2007) Cervical stenosis of spinal canal Chronic back pain Colon polyps (~2010) CVA (cerebral vascular accident) (2016) Facet arthropathy, lumbar Foraminal stenosis of lumbosacral region Gait instability H/O: stroke (04/10/16) Hyperlipidemia Hypertension (~2016) Lumbar post-laminectomy syndrome Lumbosacral spondylosis Measles Mumps Neuropathy Osteoarthritis PAD (peripheral artery disease) Peripheral neuropathy (~1979) Peripheral vascular disease Rotator cuff impingement syndrome of right shoulder Sick sinus syndrome Skin cancer Spinal stenosis Spinal stenosis of lumbar region without neurogenic claudication Spondylolisthesis at L4-L5 level Squamous cell skin cancer (~2015) Syncope Vertigo (~2013) Vision disorder Surgical History History of lumbar laminectomy (1988) History of lumbar laminectomy (1952) History of surgery (2007) History of surgery (1952) History of vasectomy Hx of bilateral cataract extraction 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 Mother No problems noted. Brother Diabetes mellitus Hypertension Hyperlipidemia Grandfather No problems noted. Social History marital status: number of children: 3 household members: spouse lives independently: Yes caregiver/support person: No housing: house pets and animals: No education level: college occupational status: other Previous occupational history: [employer] travel history: other leisure activities: music and other Smoking Status: Former smoker Tobacco: How many years used: 10 Smokeless tobacco user: other quit status: quit date established alcohol intake: current substance use type: does not use Smoking Status: Former smoker alcohol intake frequency: a few times a month Substance Use Type: does not use Exam Narrative Exam Narrative: GEN: Patient appears in mild distress. HEAD: No evidence of trauma, no raccoon/Cantrell sign. NECK: Nontender, painless range of motion, trachea midline Positive for Nexus criteria, there is no midline line tenderness, distracting injury, positive for altered mental status, negative for neuro deficit, recent EtOH. EYES: PERRLA, EOMI ENT: External inspection normal, trachea is midline, TM's are normal no hemotypanum, Nares are clear, no septal hematoma, no dental or oral injury, airway is normal and with normal occlusion, No bony tenderness RESP: Chest is nontender and has symmetric movement, no ecchymosis, breath sounds are normal no crackles, wheezes or rales CVS: Heart sounds are normal, no murmur noted, No JVD. ABG/GI: Nontender, soft, normal bowel sounds, no distention, no organomegaly, pelvic rock is negative NEURO: Oriented AOx3, neuro is grossly intact, sensation and motor is normal all 4 extremities moving, cranial nerves II through XII are intact, GCS is 15 PSYCH: Normal mood and affect SKIN: Intact, warm and dry, no crepitus and without decubitus BACK: No CVA tenderness, no vertebral tenderness, no step-off's, no crepitus EXT: Atraumatic, hips are nontender, no pedal edema, normal color and temperature, normal range of motion of extremities with normal tendon exam, 2+ pulses in all four extremities Initial Vital Signs Initial Vital Signs: Vital Signs Temperature 98.1 F 04/13/22 22:21 Pulse Rate 89 04/13/22 22:21 Respiratory Rate 20 04/13/22 22:21 Blood Pressure 193/93 H 04/13/22 22:21 Pulse Oximetry 100 04/13/22 22:21 Oxygen Delivery Method 04/13/22 22:[address] Head Rule Age <16 years old: No Patient on blood thinners: Yes Seizure after injury: No Exclusion: Patient meets exclusion criteria GCS < 15 at 2 hr post trauma: No Suspected open or depressed skull fracture: No Any sign of basilar skull fracture (hemotympanum, raccoon eyes, Cantrell's sign, CSF abi-/rhinorrhea): No Two or more episodes of vomiting: No Age greater or equal to 65 years: Yes Retrograde amnesia to the event greater or equal to 30 min: No Dangerous Mechanism (pedestrian vs. mv, occupant ejected from mv, fall from >3 ft or > 5 stairs): No Recommendation: Consider CT. The [facility] Head CT Rule cannot rule out need for Imaging. GCS Grant coma scale eye opening: Spontaneous Grant coma scale verbal response: Orientated [place] coma scale motor response: Obey commands Grant coma scale total score: 15 Nexus Score for C-Spine Focal Neurologic deficit present: No Midline spinal tenderness present: No Altered level of conciousness present: Yes Intoxication present: No Distracting Injury Present: No Nexus Criteria for C-spine: 1 Course Orders Ordered: ED Orders 04/13/22 22:29 CT cervical spine wo con Stat CT head/brain wo con Stat 04/14/22 00:53 XR chest 1V Stat Complete Blood Count AUTO DIFF Stat Comprehensive Metabolic Panel Stat Lipase Stat Magnesium Stat Troponin & CK Cardiac Panel Stat 04/14/22 00:57 EKG-12 Lead Stat Vital Signs Vital signs: Vital Signs - 8 hr 04/13/22 22:21 04/13/22 23:45 04/13/22 23:42 Temperature 98.1 F 98.3 F Pulse Rate 89 72 Respiratory Rate 20 13 Blood Pressure 193/93 H 167/77 H Pulse Oximetry 100 99 96 Oxygen Delivery Method Room Air 04/13/22 23:43 04/13/22 23:43 04/14/22 00:00 Temperature Pulse Rate 71 Respiratory Rate Blood Pressure 167/77 H 158/73 H Pulse Oximetry 97 Oxygen Delivery Method 04/14/22 00:00 04/14/22 00:30 04/14/22 00:37 Temperature Pulse Rate 68 73 68 Respiratory Rate 11 L 14 15 Blood Pressure Pulse Oximetry 96 95 98 Oxygen Delivery Method 04/14/22 00:37 04/14/22 01:00 04/14/22 01:01 Temperature Pulse Rate 64 67 Respiratory Rate 10 L 13 Blood Pressure 197/88 H Pulse Oximetry 98 97 Oxygen Delivery Method 04/14/22 01:01 04/14/22 01:30 04/14/22 01:30 Temperature Pulse Rate 64 Respiratory Rate 9 L Blood Pressure 156/76 H 152/72 H Pulse Oximetry 96 Oxygen Delivery Method 04/14/22 02:00 04/14/22 02:00 04/14/22 02:30 Temperature Pulse Rate 62 Respiratory Rate 9 L Blood Pressure 151/66 H 141/64 H Pulse Oximetry 97 Oxygen Delivery Method 04/14/22 02:30 04/14/22 03:00 04/14/22 03:00 Temperature Pulse Rate 61 65 Respiratory Rate 9 L 10 L Blood Pressure 157/74 H Pulse Oximetry 97 97 Oxygen Delivery Method MDM - Fall Lab Data Result diagrams: 04/13/22 22:18 04/13/22 22:18 Labs: Lab Results 04/13/22 04/13/22 Range/Units 22:18 22:18 WBC 8.1 (4.5-11.0) X10^3/uL RBC 4.43 L (4.5-5.9) X10^6/uL Hgb 14.4 (13.5-17.5) g/dL Hct 42.5 (41-53) % MCV 95.9 (80-100) fL MCH 32.6 (26-34) PG MCHC 34.0 (30-36) % RDW 13.4 (11.6-14.8) % Plt Count 203 (150-400) X10^3/uL Neut % (Auto) 72.1 (50-75) % Lymph % (Auto) 17.0 L (25-40) % Griggs % (Auto) 9.3 (3-14) % Eos % (Auto) 1.3 L (2-4) % Baso % (Auto) 0.3 (0-2) % Neut # (Auto) 5800 (8995-0101) /uL Lymph # (Auto) 1400 (8192-9356) /uL [place]gs # (Auto) 800 (0-900) /uL Eos # (Auto) 100 (0-450) /uL Baso # (Auto) 0 (0-100) /uL Sodium 141 (137-145) mmol/L Potassium 4.7 (3.4-5.1) mmol/L Chloride 104 (98-107) mmol/L Carbon Dioxide 27 (22-32) mmol/L BUN 22 H (9-20) mg/dL Creatinine 0.87 (0.66-1.25) mg/dL Estimated GFR > 60 (>60) mL/min BUN/Creatinine Ratio 25.3 H (6-22) Glucose 117 H (80-110) mg/dL Calcium 9.1 (8.4-10.2) mg/dL Magnesium 2.2 (1.6-2.3) mg/dL Total Bilirubin 0.5 (0.2-1.3) mg/dL AST 42 (17-59) IU/L ALT 31 (<50) IU/L Alkaline Phosphatase 96 (38-126) U/L Total Creatine Kinase 303 H (55-170) U/L CK-MB (CK-2) 12.30 H (<2.37) ng/mL CK-MB (CK-2) Rel Index 4.1 (1.5-5.0) % Troponin I < 0.012 (0.01-0.034) ng/mL Total Protein 8.3 H (6.3-8.2) g/dL Albumin 4.4 (3.5-5.0) g/dL Globulin 3.9 (1.7-4.1) g/dL Albumin/Globulin Ratio 1.1 (1.0-2.8) Lipase 107 (23-300) U/L Imaging Data CT scan - head: Radiologist's Impression: [address] [address] [address] Scan Report Signed Patient: Chuckie Ryder MR#: [id number] : 1935 Acct:[id number] Age/Sex: 86 / M Date of Service: 04/13/22 Loc: ED Accession Number: [id number] ?? Procedure: CT head/brain wo con Ordering Provider: Sindhu Stein D.O. PROCEDURE:? CT HEAD/BRAIN WO CON ? INDICATIONS:? trauma ? TECHNIQUE:? Noncontrast 4.5 mm thick angled axial sections acquired from the foramen magnum to the vertex, with coronal and sagittal reformats.? For radiation dose reduction, the following was used:? automated exposure control, adjustment of mA and/or kV according to patient size.? ? COMPARISON:? [facility], CT, CT HEAD/BRAIN WO CON, 12/23/2020, 17:04. ? FINDINGS:? Image quality:? There is metallic streak artifact from a metal device reportedly on the patient's right eyelid.? ? CSF spaces:? Basal cisterns are patent.? No extra-axial fluid collections.? There is mild to moderate cerebral volume loss, with resultant ventricular and sulcal prominence.? ? Brain:? No intracranial hemorrhage, mass, or mass effect.? There are subcortical, periventricular and deep white matter hypodensities consistent with [id number] chronic small vessel ischemic changes.? The goode-white matter junction appears preserved. ?There is intracranial internal carotid artery atherosclerosis.? ? Skull and face:? Calvarium and visualized facial bones appear intact, without suspicious lesions.? There is a metallic device adjacent to the right globe with associated streak artifact.? ? Sinuses:? Visualized sinuses and mastoids are clear.? ? IMPRESSION:? ? 1. No definite acute intracranial abnormality. ? 2. Mild to moderate chronic white matter small vessel ischemic changes and cerebral volume loss.? ? Dictated by: Benjamin Cadena M.D. on 04/13/2022 at 23:55 ? ? Approved by: Benjamin Cadena M.D. on 04/13/2022 at 23: CT - cervical spine: Radiologist's Impression: [place] [address] CT Scan Report Signed Patient: Chuckie Ryder MR#: [id number] : 1935 Acct:[id number] Age/Sex: 86 / M Date of Service: 04/13/22 Loc: ED Accession Number: [id number] ?? Procedure: CT cervical spine wo con Ordering Provider: Sindhu Stein D.O. PROCEDURE:? CT CERVICAL SPINE WO CON ? INDICATIONS:? trauma ? TECHNIQUE:? Noncontrast 3 mm thick sections acquired from the skull base to the T4 level.? Sagittal and coronal reformats were then constructed.? For radiation dose reduction, the following was used:? automated exposure control, adjustment of mA and/or kV according to patient size.? ? COMPARISON:? Outside Facility, , CT C-SPINE WO CONTRAST, 10/06/2016, 13:21. ? FINDINGS:? Image quality:? Excellent.? ? Bones:? No fractures or subluxation.? There is straightening of the cervical lordosis.? Multilevel degenerative disc disease and facet joint arthropathy demonstrated throughout the cervical spine.? Visualized superior ribs are intact.? ? Soft tissues:? Prevertebral soft tissues are normal in thickness.? No paravertebral hematomas.? No apical pneumothoraces.? ? ? IMPRESSION:? ? 1. No acute fracture or subluxation.? Dictated by: Benjamin Cadena M.D. on 04/14/2022 at 0:08 ? ? Approved by: Benjamin Cadena M.D. on 04/14/2022 at 0:09 Chest x-ray: Radiologist's Impression: Close Chest X-Ray (Signed) Benjamin Cadena - 04/14/[address] (Signed) Benjamin Cadena - 04/13/[address] (Signed) Benjamin Cadena - 04/13/22 Chest X-Ray (Signed) Pardeep Ga - 01/18/22 EKG Rpt. 01/18/22 Echocardiogram Ultrasound (Signed) Steve Walker - 10/20/21 DI Result 01/12/21 Carotid Doppler Study (Signed) Omid Turner - 12/24/[address] (Signed) MarkFredrick williamsonr - 12/23/20 Lumbar Spine X-Ray (Signed) Kye Mackwn - 12/21/20 Telemetry Strips 12/21/20 DI Result CC 12/18/20 DI Result 12/18/20 Outside EKG 09/17/20 Chest/Abdomen X-ray (Signed) Sandoval Encarnacion - 08/25/20 Echocardiogram Ultrasound (Signed) Steve Walker - 08/19/20 Injection Lumbar, Sacrum (Signed) Omid Turner - 07/07/20 Lumbar Spine X-Ray (Signed) Victor Hugo Higgins - 06/10/20 Injection Lumbar, Sacrum (Signed) Victor Hugo Higgins - 01/09/20 Shoulder X-Ray (Signed) Michael Myers - 10/07/19 Facet Joint Injection X-Ray (Signed) Victor Hugo Higgins - 09/24/19 Injection Lumbar, Sacrum (Signed) Hortensia Ashby - 07/30/[address] (Signed) Hortensia Ashby - 06/24/19 Injection Lumbar, Sacrum (Signed) Michael Myers - 05/23/19 Chest/Abdomen CTA (Signed) Victor Hugo Higgins - 03/29/19 Echocardiogram Ultrasound (Signed) Steve Walker - 11/14/18 Chest X-Ray (Signed) Deedee Mark - 10/17/18 Abdomen/Pelvis CT (Signed) Mark,Muneer - 10/14/[address] (Signed) Mark,Muneer - 10/14/18 Ribs X-Ray (Signed) Mark,Muneer - 10/14/18 Injection Lumbar, Sacrum (Signed) Michael Myers - 10/09/18 Facet Joint Injection X-Ray (Signed) Keya Brennan - 08/07/[address] (Signed) Ania Turnere - 06/12/18 Chest X-Ray (Signed) Keya Brennan - 06/12/18 Facet Joint Injection X-Ray (Signed) Keya Brennan - 06/12/18 Lumbar Spine X-Ray (Signed) Johnny,Omid - 05/21/18 DI Result CC 01/17/17 Launch?Image [address] [address] XRay Report Signed Patient: Chuckie Ryder MR#: [id number] : 1935 Acct:[id number] Age/Sex: 86 / M Date of Service: 04/14/22 Loc: ED Accession Number: [id number] ?? Procedure: XR chest 1V Ordering Provider: Sindhu Stein D.O. PROCEDURE:? XR CHEST 1V ? INDICATIONS:? chest pain ? TECHNIQUE:? One view of the chest was acquired.? ? COMPARISON:? [facility], CR, XR CHEST 2 VIEWS, 11/21/2018, 8:01.? [facility], CR, XR CHEST 1V, 01/18/2022, 13:38. ? FINDINGS:? ? Surgical changes and devices:? Left chest wall dual lead pacemaker and leads appear similar in position.? ? Lungs and pleura:? There is an indistinct peripheral opacity redemonstrated laterally in the left lung base.? No definite acute consolidation.? No pleural effusions or pneumothorax.? ? Mediastinum:? Mediastinal contours appear normal.? Heart size is normal.? ? Bones and chest wall:? No suspicious bony lesions.? Overlying soft tissues appear unremarkable.? ? IMPRESSION:? ? 1. No definite acute cardiopulmonary disease. ? 2. Indistinct peripheral opacity in the left lung base is suggestive of atelectasis or scarring.? ? ? Dictated by: Benjamin Cadena M.D. on 04/14/2022 at 1:34 ? ? Approved by: Benjamin Cadena M.D. on 04/14/2022 at 1:37?? ECG Data Attestation: I personally reviewed and interpreted this ECG as follows: Interpretation: Sinus rhythm rate of 68 NC 168 QRS is 72 and QTC of 401. No acute ST changes noted. EKG 2. Normal sinus rhythm rate of 64 NC 166, QRS is 72 and QTC 396. No acute ST changes appreciated. MDM Narrative Medical decision making narrative: This is an 86-year-old male with a witnessed fall with loss of consciousness, confusion and repetitive questioning immediately afterwards patient had improvement of mentation over time, head CT is negative, C-spine is negative which was obtained as he was altered immediately afterwards. Chest x-ray is negative, labs do not show any clear changes. EKG does not show acute change or arrhythmia. Patient was ambulated in the department on clinically cleared. Discharge Plan Departure Patient Disposition: Home Clinical Impression: Concussion Qualifiers: Encounter type: initial encounter Loss of consciousness presence/duration: with LOC of 30 min or less Qualified Code(s): S06.0X1A - Concussion with loss of consciousness of 30 minutes or less, initial encounter Instructions: DI for Concussion Activity Restrictions/Additional Instructions: Follow-up with your physician for recheck. You may continue normal activities as tolerated if activities make you dizzy, tired or exacerbate your symptoms please return to your lower activity level for 24 hours and then re-attempt. You can take Tylenol up to a 1000 mg every 6 hours as needed for headache. Please return for new confusion, severe headaches, new neck or back pain, numbness, tingling new weakness, new loss of bowel or bladder control, persistent vomiting or other new or concerning symptoms. Prescriptions: No Action (DME) Disabled Parking See Rx Instructions .ROUTE .MEDSULY Qty: 1 0RF Rx Instructions: Patient qualifies for disabled parking as per the attached form. clopidogrel 75 mg tablet 75 mg PO DAILY Qty: 90 3RF gabapentin 400 mg capsule 400 mg PO BID Qty: 180 3RF losartan 100 mg tablet 100 mg PO DAILY Eliquis 5 mg tablet 2.5 mg PO BID pravastatin 40 mg tablet 40 mg PO BEDTIME gabapentin 400 mg Capsule 400 mg PO BEDTIME metoprolol succinate 25 mg Tablet Extended Release 24 Hr 25 mg PO DAILY acetaminophen [Tylenol] 325 mg capsule 325 mg PO DAILY PRN (Reason: Pain) Referrals: Dalton Proctor MD [Primary Care Provider] - Visit Report Forms: Patient Portal/API
== END 2022-04-14 03:50 | disposition home or self-care (01) ==
PROVIDERS: Emergency Provider Emergency Medicine; Family Provider Internal Medicine; PCP Internal Medicine
DX: S06.0X1A Concussion with loss of consciousness of 30 minutes or less, initial encounter (principal); R07.9 Chest pain, unspecified; Z79.01 Long term (current) use of anticoagulants; W19.XXXA Unspecified fall, initial encounter
CPT/HCPCS: 70450; 71045; 72125; 80053; 82550; 82553; 83690; 83735; 84484; 85025; 93005; 99283; 99284

== ENCOUNTER 2022-05-31 16:45 | Outpatient (RCR) | payer MEDICARE, OTHER, SELFPAY ==
[2020-12-21 13:40] VITALS: BMI 25.7
--- NOTE | 2022-01-05 17:38 | PT.OIE ---
Current Diagnoses Polyneuropathy, unspecified (01/05/22) Other abnormalities of gait and mobility (01/05/22) Repeated falls (01/05/22) Past Medical History (Last Updated 04/26/21 @ 15:13 by Dalton Proctor MD) Acromioclavicular joint separation, type 2 CAD (coronary artery disease) (~2007) Cervical stenosis of spinal canal Chronic back pain Colon polyps (~2010) CVA (cerebral vascular accident) (2015) Facet arthropathy, lumbar Foraminal stenosis of lumbosacral region Gait instability H/O: stroke (04/10/16) History of lumbar laminectomy (1988) History of lumbar laminectomy (1952) History of surgery (2007) History of surgery (1952) History of vasectomy Hx of bilateral cataract extraction Hyperlipidemia Hypertension (~2016) Lumbar post-laminectomy syndrome Lumbosacral spondylosis Measles Mumps Neuropathy Osteoarthritis PAD (peripheral artery disease) Peripheral neuropathy (~1979) Peripheral vascular disease Rotator cuff impingement syndrome of right shoulder 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) Sick sinus syndrome Skin cancer Spinal stenosis Spinal stenosis of lumbar region without neurogenic claudication Spondylolisthesis at L4-L5 level Squamous cell skin cancer (~2015) Syncope Vertigo (~2013) Vision disorder Past Surgical History (Last Reviewed 12/24/20 @ 13:36 by Laci Newton PA-C) History of lumbar laminectomy (1988) History of lumbar laminectomy (1952) History of surgery (2007) History of surgery (1952) History of vasectomy Hx of bilateral cataract extraction 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) Visit Care Team Role Provider Type Dalton Proctor MD Family Provider Physician Primary Care Provider Specialty: Internal Medicine Address: [address] [place] [address], [address] [place] [address], [address] Email: [email or web address] David Lowery MD Attending Provider Non-Staff Referring Provider Specialty: Medical Address: [address] [place] [address], [id number] Email: Physical Therapy Initial Evaluation PT-OP-A Visit Information Start: 06/08/22 17:14 Freq: Status: Active Protocol: Document 01/05/22 16:00 DCW (Rec: 01/05/22 17:23 DCW [id number]) Out-Patient Physical Therapy Visit Information Visit Information Visit Type Initial Evaluation Visit Start Time 16:00 Visit Stop Time 16:45 Total Visit Minutes 45 Visit Number 1 Number of CLERICAL SUPERVISOR Visits 0 Evaluation Information Evaluation Date 01/05/22 PT-OP-B Current Condition Start: 01/05/22 17:14 Freq: Status: Active Protocol: Document 01/05/22 16:00 DCW (Rec: 01/05/22 17:33 DCW [id number]) Current Condition History of Current Condition Onset Date Long-standing history Current Complaints LE neuropathy, poor balance, gait difficulty, falls History of Current Condition Pt is an 86 year old male presenting with a long- standing history of LE polyneuropathy. Pt notes a general muted sensation in his feet and ankles, and feels like his balance has been worsening, but is unsure if his difficulty comes from his actual neuropathy, or just his leg weakness, which he feels is the main issue. Pt notes that he had back surgery November of last year, the cleaned out between L4-5 and put some contraption in, and following therapy, was receiving therapy at a different clinic. Pt reports that both he and the therapist felt that he had reached a plateau, and they were not seeing much progress, however pt admits that since he stopped PT, he has lost a significant amount of LE strength and stability. Notes increased back pain when standing or walking longer than 15-20 minutes. Has had two recent falls, and another that was a few months ago. Admits that he doesn't really worry about his falls, because they have not yet resulted in an injury, but they seem to occur when he is in the bathroom and he just loses his balance. Uses a 4WW around his house, but finds it hard to get the walker into his car , so he keeps a FWW in the car for use when out. Notes that when he showers, he is unable to feel the water on his left foot because of his neuropathy . PT-OP-C Subjective Start: 01/05/22 17:14 Freq: Status: Active Protocol: Document 01/05/22 16:00 DCW (Rec: 01/05/22 17:33 [facility] [id number]) OP-PT Subjective Patient Comments Patient Comments My big question is whether or not my difficulty is from the neuropathy, or if my legs have just gotten weak. Patient Reported Progress Worse OP-PT Pain Assessment Location Bilateral Leg Intensity 4 Scale Used Numeric (0 - 10) Description Tingling PT-OP-D Balance Start: 01/05/22 17:14 Freq: Status: Active Protocol: Document 01/05/22 16:00 DCW (Rec: 01/05/22 17:36 [facility] [id number]) Balance Tests Ann Balance Test Ann Balance Test Score 10/56 Ann Impairment Rating 80 to 99% Impaired (Score 1-11 ) Ann Balance Assessment Evaluation Sitting to Standing Ability Independent w/Hands Unsupported Stance Unable w/out Assistance Sitting Unsupported, Feet on Floor Safely- 2 minutes Standing to Sitting Ability Independent, Uncontrolled Transfer Ability Supervision, Verbal Cues Unsupported Stance- Eyes Closed Falls Without Assistance Unsupported Stance- Eyes Open Assist to attain,<15 secs Reaching Forward Standing Supported, Looses Balance Pick- Up Object From Floor Requires Assistance Look Behind Shoulder - Standing Assist to Prevent Fall Turning 360 Degrees Requires Assistance Unsupported Stance, Alternating Feet on Assist to Prevent Fall Stair Unsupported Tandem Stance Balance Lost- Step/Stand Unilateral Leg Stance Unable,assist to not fall Total Score Ann Total Score (out of 56 points) 10 Ann Impairment Rating 80 to 99% Impaired (Score 1-11 ) PT-OP-E Functional Tests Start: 01/05/22 17:14 Freq: Status: Active Protocol: Document 01/05/22 16:00 DCW (Rec: 01/05/22 17:36 [facility] [id number]) Functional Tests Timed Up and Go (TUG) Score 21.14 /c FWW Comments 3-trial average: 22.19, 21.37 , 19.87 TUG Impairment Rating 100% Impaired (Score 20) PT-OP-G Mobility & Gait Start: 01/05/22 17:14 Freq: Status: Active Protocol: Document 01/05/22 16:00 DCW (Rec: 01/05/22 17:36 [facility] [id number]) OP Gait Assessment Gait Gait Assistance Required: Standby Assistance Assistive Devices Assistive Device Gait Belt,Front Wheeled Walker Gait Deviations General Gait Pattern Decreased Stride Length, Decreased Feet Clearance, Flexed Trunk,Lateral Trunk Lean,Wide Based Gait Factors Limiting Gait Function Factors Limiting Gait Function Decreased Activity Tolerance, Decreased Sensation,Decreased Strength,Poor Balance PT-OP-M Strength Start: 01/05/22 17:36 Freq: Status: Active Protocol: Document 01/05/22 16:00 DCW (Rec: 01/05/22 17:38 DCW [id number]) Hip Strength Hip Manual Muscle Testing Right Flexion (L2) 4- Good- Abduction 4- Good- Adduction 4 Good External Rotation 4 Good Internal Rotation 4 Good Left Flexion (L2) 4- Good- Abduction 4- Good- Adduction 4 Good External Rotation 4- Good- Internal Rotation 4- Good- Knee Strength Knee Manual Muscle Testing Right Flexion (S2) 4- Good- Extension (L3) 4+ Good+ Left Flexion (S2) 4- Good- Extension (L3) 4 Good Ankle/Foot Strength Ankle and Foot Manual Muscle Testing Right Dorsiflexion (L4) 3+ Fair+ Plantarflexion (S1) 3 Fair Left Dorsiflexion (L4) 3- Fair- Plantarflexion (S1) 3- Fair- PT-OP-T Assessment and Plan Start: 01/05/22 17:14 Freq: Status: Active Protocol: Document 01/05/22 16:00 DCW (Rec: 01/05/22 17:23 DCW [id number]) Physical Therapy Assessment Rehab Potential Rehabilitation Potential Fair Evaluation Complexity Number of Personal Factors/Comorbidities 3 or More Number of Body Systems Impaired 4 or More Clinical Presentation at Evaluation Unstable Impairments Impairments Activity Tolerance,Balance, Functional Activities, Functional Mobility,Gait, Posture,Strength,Tone, Transfers Other Concerns Fall Risk Yes, per falls history and Ann score (10/56) Goals Three Impairment TUG score of 21.14 using a FWW [employer] Goal (LTG) Pt to decrease time taken to perform TUG while using a FWW to <16 seconds in order to demonstrate an improved gait speed. LTG Duration 04/05/22 Two Impairment Pt shows significant falls risk with Ann score of 10/56 [employer] Goal (LTG) Pt to score at least 10 points higher on the Ann Balance scale with a score of 20/56 in order to demonstrate a decreased falls risk. LTG Duration 04/05/22 One Impairment Pt does not have an appropriate home exercise program Short Term Goal (STG) Pt to be independent and compliant with an appropriate HEP STG Duration 02/04/22 Assessment Summary Assessment Pt presents with significant falls risk and poor performance with balance testing. Score of 10/56 shows significant balance impairment . Balance negatively affected by LE neuropathy, as well as hip and ankle weakness. Pt struggles with sit<->stand transfers, and is unable to stand unsupported longer than 3-4 seconds. Pt additionally presents with poor posture, with a right lateral trunk lean and forward flexion while ambulating using his FWW. Pt should benefit from skilled therapy focusing on LE strengthening, posture training, balance training, and gait training. Physical Therapy Plan Frequency and Duration Frequency of Treatment 2x/Week Duration of Treatment 90 days Plan of Care Start Date 01/05/22 Plan of Care End Date 04/05/22 Therapeutic Interventions Therapeutic Interventions Aquatic Therapy,Balance Training,Gait Training,Home Exercise Program,Manual Therapy,Neuromuscular Re- education,Patient/Caregiver Education,Self-Care/Home Management,Soft Tissue Mobilization,Therapeutic Activities,Therapeutic Exercises Next Visit Focus/Plan Next Note Type Treatment Note Next Visit Plan LE strengthening, transfers, balance and gait training
--- NOTE | 2022-01-05 17:39 | PT.OPPOC ---
Physical, Occupational & Speech Therapy At [facility] Current Diagnoses Polyneuropathy, unspecified (01/05/22) Other abnormalities of gait and mobility (01/05/22) Repeated falls (01/05/22) Visit Care Team Role Provider Type Dalton Proctor MD Family Provider Physician Primary Care Provider Specialty: Internal Medicine Address: [address] [place] [address], [facility] [address], [place], [address] Email: [email or web address] David Lowery MD Attending Provider Non-Staff Referring Provider Specialty: Medical Address: [address] [place] [address], [place], [address] Email: Plan Of Care PT-OP-T Assessment and Plan Start: 01/05/22 17:14 Freq: Status: Active Protocol: Document 01/05/22 16:00 DCW (Rec: 01/05/22 17:23 DC[facility] [id number]) Physical Therapy Assessment Rehab Potential Rehabilitation Potential Fair Evaluation Complexity Number of Personal Factors/Comorbidities 3 or More Number of Body Systems Impaired 4 or More Clinical Presentation at Evaluation Unstable Impairments Impairments Activity Tolerance,Balance, Functional Activities, Functional Mobility,Gait, Posture,Strength,Tone, Transfers Other Concerns Fall Risk Yes, per falls history and Ann score (10/56) Goals Three Impairment TUG score of 21.14 using a FWW [employer] Operations [employer] Goal (LTG) Pt to decrease time taken to perform TUG while using a FWW to <16 seconds in order to demonstrate an improved gait speed. LTG Duration 04/05/22 Two Impairment Pt shows significant falls risk with Ann score of 10/56 [employer] Goal (LTG) Pt to score at least 10 points higher on the Ann Balance scale with a score of 20/56 in order to demonstrate a decreased falls risk. LTG Duration 04/05/22 One Impairment Pt does not have an appropriate home exercise program Short Term Goal (STG) Pt to be independent and compliant with an appropriate HEP STG Duration 02/04/22 Assessment Summary Assessment Pt presents with significant falls risk and poor performance with balance testing. Score of 10/56 shows significant balance impairment . Balance negatively affected by LE neuropathy, as well as hip and ankle weakness. Pt struggles with sit<->stand transfers, and is unable to stand unsupported longer than 3-4 seconds. Pt additionally presents with poor posture, with a right lateral trunk lean and forward flexion while ambulating using his FWW. Pt should benefit from skilled therapy focusing on LE strengthening, posture training, balance training, and gait training. Physical Therapy Plan Frequency and Duration Frequency of Treatment 2x/Week Duration of Treatment 90 days Plan of Care Start Date 01/05/22 Plan of Care End Date 04/05/22 Therapeutic Interventions Therapeutic Interventions Aquatic Therapy,Balance Training,Gait Training,Home Exercise Program,Manual Therapy,Neuromuscular Re- education,Patient/Caregiver Education,Self-Care/Home Management,Soft Tissue Mobilization,Therapeutic Activities,Therapeutic Exercises Next Visit Focus/Plan Next Note Type Treatment Note Next Visit Plan LE strengthening, transfers, balance and gait training Plan of Care Dates Plan of Care Start Date 01/05/22 Plan of Care End Date 04/05/22 Electronically Signed by: Eligio Trent, PT 01/05/22 [id number] If you are in agreement with this Plan of Care, please return a signed and dated copy. I have reviewed this Plan of Care and certify that the skilled therapy services above are required to meet the patient?s needs. Physician Signature Date Printed Name and Credentials Clinical Instructor Signature Printed Name and Credentials
--- NOTE | 2022-02-01 14:31 | PT.OTN ---
Current Diagnoses Polyneuropathy, unspecified (02/01/22) Other abnormalities of gait and mobility (02/01/22) Repeated falls (02/01/22) Physical Therapy Treatment Note PT-OP-A Visit Information Start: 01/05/22 17:14 Freq: Status: Active Protocol: Document 02/01/22 13:45 DCW (Rec: 02/01/22 14:31 DCW [id number]) Out-Patient Physical Therapy Visit Information Visit Information Visit Type Treatment Note Visit Start Time 13:45 Visit Stop Time 14:30 Total Visit Minutes 45 Visit Number 2 Number of CIVIL PREPAREDNESS OFFICER Visits 0 Evaluation Information Evaluation Date 01/05/22 PT-OP-B Current Condition Start: 01/05/22 17:14 Freq: Status: Active Protocol: Document 01/05/22 16:00 DCW (Rec: 01/05/22 17:33 DCW [id number]) Current Condition History of Current Condition Onset Date Long-standing history Current Complaints LE neuropathy, poor balance, gait difficulty, falls History of Current Condition Pt is an 86 year old male presenting with a long- standing history of LE polyneuropathy. Pt notes a general muted sensation in his feet and ankles, and feels like his balance has been worsening, but is unsure if his difficulty comes from his actual neuropathy, or just his leg weakness, which he feels is the main issue. Pt notes that he had back surgery November of last year, the cleaned out between L4-5 and put some contraption in, and following therapy, was receiving therapy at a different clinic. Pt reports that both he and the therapist felt that he had reached a plateau, and they were not seeing much progress, however pt admits that since he stopped PT, he has lost a significant amount of LE strength and stability. Notes increased back pain when standing or walking longer than 15-20 minutes. Has had two recent falls, and another that was a few months ago. Admits that he doesn't really worry about his falls, because they have not yet resulted in an injury, but they seem to occur when he is in the bathroom and he just loses his balance. Uses a 4WW around his house, but finds it hard to get the walker into his car , so he keeps a FWW in the car for use when out. Notes that when he showers, he is unable to feel the water on his left foot because of his neuropathy . PT-OP-C Subjective Start: 01/05/22 17:14 Freq: Status: Active Protocol: Document 02/01/22 13:45 DCW (Rec: 02/01/22 14:31 DCW [id number]) OP-PT Subjective Patient Comments Patient Comments Pt returns to PT following multiple cancellations while he was ill with COVID-19. Notes that has he was worsening, his legs gave out under him, he slid to the floor, and was just so weak that I couldn't get myself up, ended up hospitalized for two days. PT-OP-D Balance Start: 01/05/22 17:14 Freq: Status: Active Protocol: Document 01/05/22 16:00 DCW (Rec: 01/05/22 17:36 DCW [id number]) Balance Tests Ann Balance Test Ann Balance Test Score 10/56 Ann Impairment Rating 80 to 99% Impaired (Score 1-11 ) Ann Balance Assessment Evaluation Sitting to Standing Ability Independent w/Hands Unsupported Stance Unable w/out Assistance Sitting Unsupported, Feet on Floor Safely- 2 minutes Standing to Sitting Ability Independent, Uncontrolled Transfer Ability Supervision, Verbal Cues Unsupported Stance- Eyes Closed Falls Without Assistance Unsupported Stance- Eyes Open Assist to attain,<15 secs Reaching Forward Standing Supported, Looses Balance Pick- Up Object From Floor Requires Assistance Look Behind Shoulder - Standing Assist to Prevent Fall Turning 360 Degrees Requires Assistance Unsupported Stance, Alternating Feet on Assist to Prevent Fall Stair Unsupported Tandem Stance Balance Lost- Step/Stand Unilateral Leg Stance Unable,assist to not fall Total Score Ann Total Score (out of 56 points) 10 Ann Impairment Rating 80 to 99% Impaired (Score 1-11 ) PT-OP-E Functional Tests Start: 01/05/22 17:14 Freq: Status: Active Protocol: Document 01/05/22 16:00 DCW (Rec: 01/05/22 17:36 DCW [id number]) Functional Tests Timed Up and Go (TUG) Score 21.14 /c FWW Comments 3-trial average: 22.19, 21.37 , 19.87 TUG Impairment Rating 100% Impaired (Score 20) PT-OP-G Mobility & Gait Start: 01/05/22 17:14 Freq: Status: Active Protocol: Document 01/05/22 16:00 DCW (Rec: 01/05/22 17:36 [facility] [id number]) OP Gait Assessment Gait Gait Assistance Required: Standby Assistance Assistive Devices Assistive Device Gait Belt,Front Wheeled Walker Gait Deviations General Gait Pattern Decreased Stride Length, Decreased Feet Clearance, Flexed Trunk,Lateral Trunk Lean,Wide Based Gait Factors Limiting Gait Function Factors Limiting Gait Function Decreased Activity Tolerance, Decreased Sensation,Decreased Strength,Poor Balance PT-OP-M Strength Start: 01/05/22 17:36 Freq: Status: Active Protocol: Document 01/05/22 16:00 DCW (Rec: 01/05/22 17:38 DC [id number]) Hip Strength Hip Manual Muscle Testing Right Flexion (L2) 4- Good- Abduction 4- Good- Adduction 4 Good External Rotation 4 Good Internal Rotation 4 Good Left Flexion (L2) 4- Good- Abduction 4- Good- Adduction 4 Good External Rotation 4- Good- Internal Rotation 4- Good- Knee Strength Knee Manual Muscle Testing Right Flexion (S2) 4- Good- Extension (L3) 4+ Good+ Left Flexion (S2) 4- Good- Extension (L3) 4 Good Ankle/Foot Strength Ankle and Foot Manual Muscle Testing Right Dorsiflexion (L4) 3+ Fair+ Plantarflexion (S1) 3 Fair Left Dorsiflexion (L4) 3- Fair- Plantarflexion (S1) 3- Fair- PT-OP-Q Treatments Start: 01/05/22 17:14 Freq: Status: Active Protocol: Document 02/01/22 13:45 DCW (Rec: 02/01/22 14:31 [facility] [id number]) Cardio Equipment Recumbent Elliptical ([employer]) Duration (Minutes) 5 Resistance 3 Seat Position 9 Therapeutic Exercises Sitting Exercises LAQ Side bilateral Resistance 4# Hamstring Curls Side bilateral Resistance Lv 2 Ankle Flexion Sitting Exercise Name 4-way ankle flexion Standing Exercises Extension Standing Exercise Name Hip Extension Side bilateral Resistance Red Reps/Minutes x10 Abduction Standing Exercise Name Hip Abduction Side bilateral Resistance Red Reps/Minutes x10 Therapeutic Activity Therapeutic Activity Sit<->Stand Name Sit<->Stand Comments Cures for positioning, posture , hip hinge PT-OP-T Assessment and Plan Start: 01/05/22 17:14 Freq: Status: Active Protocol: Document 02/01/22 13:45 DCW (Rec: 02/01/22 14:31 [facility] [id number]) Physical Therapy Assessment Impairments Impairments Activity Tolerance,Balance, Functional Activities, Functional Mobility,Gait, Posture,Strength,Tone, Transfers Goals Three Impairment TUG score of 21.14 using a FWW Marine Steam Fitter Helper Goal (LTG) Pt to decrease time taken to perform TUG while using a FWW to <16 seconds in order to demonstrate an improved gait speed. LTG Duration 04/05/22 Two Impairment Pt shows significant falls risk with Ann score of 10/56 Senior Care Goal (LTG) Pt to score at least 10 points higher on the Ann Balance scale with a score of 20/56 in order to demonstrate a decreased falls risk. LTG Duration 04/05/22 One Impairment Pt does not have an appropriate home exercise program Short Term Goal (STG) Pt to be independent and compliant with an appropriate HEP STG Duration 02/04/22 Assessment Summary Assessment Pt very fatigued, clearly still very low tolerance to activity following recent COVID illness. Pt did better with sit<->stand positioning following verbal cues, however still struggled simply due to quad weakness. Physical Therapy Plan Frequency and Duration Frequency of Treatment 2x/Week Duration of Treatment 90 days Plan of Care Start Date 01/05/22 Plan of Care End Date 04/05/22 Therapeutic Interventions Therapeutic Interventions Aquatic Therapy,Balance Training,Gait Training,Home Exercise Program,Manual Therapy,Neuromuscular Re- education,Patient/Caregiver Education,Self-Care/Home Management,Soft Tissue Mobilization,Therapeutic Activities,Therapeutic Exercises Next Visit Focus/Plan Next Note Type Treatment Note Next Visit Plan LE strengthening, transfers, balance and gait training
--- NOTE | 2022-02-03 14:29 | PT.OTN ---
Current Diagnoses Polyneuropathy, unspecified (02/03/22) Other abnormalities of gait and mobility (02/03/22) Repeated falls (02/03/22) Physical Therapy Treatment Note PT-OP-A Visit Information Start: 01/05/22 17:14 Freq: Status: Active Protocol: Document 02/03/22 13:45 DCW (Rec: 02/03/22 14:29 DCW [id number]) Out-Patient Physical Therapy Visit Information Visit Information Visit Type Treatment Note Visit Start Time 13:45 Visit Stop Time 14:30 Total Visit Minutes 45 Visit Number 3 Number of LOG BRANDER Visits 0 Evaluation Information Evaluation Date 01/05/22 PT-OP-B Current Condition Start: 01/05/22 17:14 Freq: Status: Active Protocol: Document 01/05/22 16:00 DCW (Rec: 01/05/22 17:33 DCW [id number]) Current Condition History of Current Condition Onset Date Long-standing history Current Complaints LE neuropathy, poor balance, gait difficulty, falls History of Current Condition Pt is an 86 year old male presenting with a long- standing history of LE polyneuropathy. Pt notes a general muted sensation in his feet and ankles, and feels like his balance has been worsening, but is unsure if his difficulty comes from his actual neuropathy, or just his leg weakness, which he feels is the main issue. Pt notes that he had back surgery November of last year, the cleaned out between L4-5 and put some contraption in, and following therapy, was receiving therapy at a different clinic. Pt reports that both he and the therapist felt that he had reached a plateau, and they were not seeing much progress, however pt admits that since he stopped PT, he has lost a significant amount of LE strength and stability. Notes increased back pain when standing or walking longer than 15-20 minutes. Has had two recent falls, and another that was a few months ago. Admits that he doesn't really worry about his falls, because they have not yet resulted in an injury, but they seem to occur when he is in the bathroom and he just loses his balance. Uses a 4WW around his house, but finds it hard to get the walker into his car , so he keeps a FWW in the car for use when out. Notes that when he showers, he is unable to feel the water on his left foot because of his neuropathy . PT-OP-C Subjective Start: 01/05/22 17:14 Freq: Status: Active Protocol: Document 02/03/22 13:45 DCW (Rec: 02/03/22 14:29 DCW [id number]) OP-PT Subjective Patient Comments Patient Comments I'm doing about as well as expected. Does admit his legs were pretty fatigued after his last visit. PT-OP-D Balance Start: 01/05/22 17:14 Freq: Status: Active Protocol: Document 01/05/22 16:00 DCW (Rec: 01/05/22 17:36 DCW [id number]) Balance Tests Ann Balance Test Ann Balance Test Score 10/56 Ann Impairment Rating 80 to 99% Impaired (Score 1-11 ) Ann Balance Assessment Evaluation Sitting to Standing Ability Independent w/Hands Unsupported Stance Unable w/out Assistance Sitting Unsupported, Feet on Floor Safely- 2 minutes Standing to Sitting Ability Independent, Uncontrolled Transfer Ability Supervision, Verbal Cues Unsupported Stance- Eyes Closed Falls Without Assistance Unsupported Stance- Eyes Open Assist to attain,<15 secs Reaching Forward Standing Supported, Looses Balance Pick- Up Object From Floor Requires Assistance Look Behind Shoulder - Standing Assist to Prevent Fall Turning 360 Degrees Requires Assistance Unsupported Stance, Alternating Feet on Assist to Prevent Fall Stair Unsupported Tandem Stance Balance Lost- Step/Stand Unilateral Leg Stance Unable,assist to not fall Total Score Ann Total Score (out of 56 points) 10 Ann Impairment Rating 80 to 99% Impaired (Score 1-11 ) PT-OP-E Functional Tests Start: 01/05/22 17:14 Freq: Status: Active Protocol: Document 01/05/22 16:00 DCW (Rec: 01/05/22 17:36 DCW [id number]) Functional Tests Timed Up and Go (TUG) Score 21.14 /c FWW Comments 3-trial average: 22.19, 21.37 , 19.87 TUG Impairment Rating 100% Impaired (Score 20) PT-OP-G Mobility & Gait Start: 01/05/22 17:14 Freq: Status: Active Protocol: Document 01/05/22 16:00 DCW (Rec: 01/05/22 17:36 DC [id number]) OP Gait Assessment Gait Gait Assistance Required: Standby Assistance Assistive Devices Assistive Device Gait Belt,Front Wheeled Walker Gait Deviations General Gait Pattern Decreased Stride Length, Decreased Feet Clearance, Flexed Trunk,Lateral Trunk Lean,Wide Based Gait Factors Limiting Gait Function Factors Limiting Gait Function Decreased Activity Tolerance, Decreased Sensation,Decreased Strength,Poor Balance PT-OP-M Strength Start: 01/05/22 17:36 Freq: Status: Active Protocol: Document 01/05/22 16:00 DCW (Rec: 01/05/22 17:38 DCW [id number]) Hip Strength Hip Manual Muscle Testing Right Flexion (L2) 4- Good- Abduction 4- Good- Adduction 4 Good External Rotation 4 Good Internal Rotation 4 Good Left Flexion (L2) 4- Good- Abduction 4- Good- Adduction 4 Good External Rotation 4- Good- Internal Rotation 4- Good- Knee Strength Knee Manual Muscle Testing Right Flexion (S2) 4- Good- Extension (L3) 4+ Good+ Left Flexion (S2) 4- Good- Extension (L3) 4 Good Ankle/Foot Strength Ankle and Foot Manual Muscle Testing Right Dorsiflexion (L4) 3+ Fair+ Plantarflexion (S1) 3 Fair Left Dorsiflexion (L4) 3- Fair- Plantarflexion (S1) 3- Fair- PT-OP-Q Treatments Start: 01/05/22 17:14 Freq: Status: Active Protocol: Document 02/03/22 13:45 DCW (Rec: 02/03/22 14:29 DCW [id number]) Cardio Equipment Recumbent Elliptical (Biodex) Duration (Minutes) 5 Resistance 3 Seat Position 9 Gym Equipment Shuttle Recovery Bilateral Heel Raises Resistance 37#->12# Reps/Time Pt unable to perform Unilateral Squats Resistance 25# Bilateral Squats Resistance 62# Therapeutic Exercises Sitting Exercises Marching Sitting Exercise Name Seated marching Side bilateral Resistance 4# LAQ Side bilateral Resistance 4# Hamstring Curls Side bilateral Resistance Lv 2 Ankle Flexion Sitting Exercise Name 4-way ankle flexion Side bilateral Resistance Lv 2 Standing Exercises Extension Standing Exercise Name Hip Extension Side bilateral Resistance Red Reps/Minutes x10 Abduction Standing Exercise Name Hip Abduction Side bilateral Resistance Red Reps/Minutes x10 Neuro Re-Education Treatment Balance Activities NBOS Details NBOS Surface Firm Equipment @ rail Foam stance Surface Blue foam PT-OP-T Assessment and Plan Start: 01/05/22 17:14 Freq: Status: Active Protocol: Document 02/03/22 13:45 DCW (Rec: 02/03/22 14:29 DCW [id number]) Physical Therapy Assessment Impairments Impairments Activity Tolerance,Balance, Functional Activities, Functional Mobility,Gait, Posture,Strength,Tone, Transfers Goals Three Impairment TUG score of 21.14 using a FWW Nursing Home Goal (LTG) Pt to decrease time taken to perform TUG while using a FWW to <16 seconds in order to demonstrate an improved gait speed. LTG Duration 04/05/22 Two Impairment Pt shows significant falls risk with Ann score of 10/56 Spanish Interpreter Goal (LTG) Pt to score at least 10 points higher on the Ann Balance scale with a score of 20/56 in order to demonstrate a decreased falls risk. LTG Duration 04/05/22 One Impairment Pt does not have an appropriate home exercise program Short Term Goal (STG) Pt to be independent and compliant with an appropriate HEP STG Duration 02/04/22 Assessment Summary Assessment Pt again very fatigued by end of session, but puts forward very good effort during his PT appointments. Physical Therapy Plan Frequency and Duration Frequency of Treatment 2x/Week Duration of Treatment 90 days Plan of Care Start Date 01/05/22 Plan of Care End Date 04/05/22 Therapeutic Interventions Therapeutic Interventions Aquatic Therapy,Balance Training,Gait Training,Home Exercise Program,Manual Therapy,Neuromuscular Re- education,Patient/Caregiver Education,Self-Care/Home Management,Soft Tissue Mobilization,Therapeutic Activities,Therapeutic Exercises Next Visit Focus/Plan Next Note Type Treatment Note Next Visit Plan LE strengthening, transfers, balance and gait training
--- NOTE | 2022-02-07 14:28 | PT.OTN ---
Current Diagnoses Polyneuropathy, unspecified (02/07/22) Other abnormalities of gait and mobility (02/07/22) Repeated falls (02/07/22) Physical Therapy Treatment Note PT-OP-A Visit Information Start: 01/05/22 17:14 Freq: Status: Active Protocol: Document 02/07/22 13:45 DCW (Rec: 02/07/22 14:28 DCW [id number]) Out-Patient Physical Therapy Visit Information Visit Information Visit Type Treatment Note Visit Start Time 13:45 Visit Stop Time 14:30 Total Visit Minutes 45 Visit Number 4 Number of HULL DRAFTER Visits 0 Evaluation Information Evaluation Date 01/05/22 PT-OP-B Current Condition Start: 01/05/22 17:14 Freq: Status: Active Protocol: Document 01/05/22 16:00 DCW (Rec: 01/05/22 17:33 DCW [id number]) Current Condition History of Current Condition Onset Date Long-standing history Current Complaints LE neuropathy, poor balance, gait difficulty, falls History of Current Condition Pt is an 86 year old male presenting with a long- standing history of LE polyneuropathy. Pt notes a general muted sensation in his feet and ankles, and feels like his balance has been worsening, but is unsure if his difficulty comes from his actual neuropathy, or just his leg weakness, which he feels is the main issue. Pt notes that he had back surgery November of last year, the cleaned out between L4-5 and put some contraption in, and following therapy, was receiving therapy at a different clinic. Pt reports that both he and the therapist felt that he had reached a plateau, and they were not seeing much progress, however pt admits that since he stopped PT, he has lost a significant amount of LE strength and stability. Notes increased back pain when standing or walking longer than 15-20 minutes. Has had two recent falls, and another that was a few months ago. Admits that he doesn't really worry about his falls, because they have not yet resulted in an injury, but they seem to occur when he is in the bathroom and he just loses his balance. Uses a 4WW around his house, but finds it hard to get the walker into his car , so he keeps a FWW in the car for use when out. Notes that when he showers, he is unable to feel the water on his left foot because of his neuropathy . PT-OP-C Subjective Start: 01/05/22 17:14 Freq: Status: Active Protocol: Document 02/07/22 13:45 DCW (Rec: 02/07/22 14:28 DCW [id number]) OP-PT Subjective Patient Comments Patient Comments Pt notes he is not all that great today, just general fatigue, and I just feel like I'm not moving right. PT-OP-D Balance Start: 01/05/22 17:14 Freq: Status: Active Protocol: Document 01/05/22 16:00 DCW (Rec: 01/05/22 17:36 DCW [id number]) Balance Tests Ann Balance Test Ann Balance Test Score 10/56 Ann Impairment Rating 80 to 99% Impaired (Score 1-11 ) Ann Balance Assessment Evaluation Sitting to Standing Ability Independent w/Hands Unsupported Stance Unable w/out Assistance Sitting Unsupported, Feet on Floor Safely- 2 minutes Standing to Sitting Ability Independent, Uncontrolled Transfer Ability Supervision, Verbal Cues Unsupported Stance- Eyes Closed Falls Without Assistance Unsupported Stance- Eyes Open Assist to attain,<15 secs Reaching Forward Standing Supported, Looses Balance Pick- Up Object From Floor Requires Assistance Look Behind Shoulder - Standing Assist to Prevent Fall Turning 360 Degrees Requires Assistance Unsupported Stance, Alternating Feet on Assist to Prevent Fall Stair Unsupported Tandem Stance Balance Lost- Step/Stand Unilateral Leg Stance Unable,assist to not fall Total Score Ann Total Score (out of 56 points) 10 Ann Impairment Rating 80 to 99% Impaired (Score 1-11 ) PT-OP-E Functional Tests Start: 01/05/22 17:14 Freq: Status: Active Protocol: Document 01/05/22 16:00 DCW (Rec: 01/05/22 17:36 [facility] [id number]) Functional Tests Timed Up and Go (TUG) Score 21.14 /c FWW Comments 3-trial average: 22.19, 21.37 , 19.87 TUG Impairment Rating 100% Impaired (Score 20) PT-OP-G Mobility & Gait Start: 01/05/22 17:14 Freq: Status: Active Protocol: Document 01/05/22 16:00 DCW (Rec: 01/05/22 17:36 [facility] [id number]) OP Gait Assessment Gait Gait Assistance Required: Standby Assistance Assistive Devices Assistive Device Gait Belt,Front Wheeled Walker Gait Deviations General Gait Pattern Decreased Stride Length, Decreased Feet Clearance, Flexed Trunk,Lateral Trunk Lean,Wide Based Gait Factors Limiting Gait Function Factors Limiting Gait Function Decreased Activity Tolerance, Decreased Sensation,Decreased Strength,Poor Balance PT-OP-M Strength Start: 01/05/22 17:36 Freq: Status: Active Protocol: Document 01/05/22 16:00 DCW (Rec: 01/05/22 17:38 DCW [id number]) Hip Strength Hip Manual Muscle Testing Right Flexion (L2) 4- Good- Abduction 4- Good- Adduction 4 Good External Rotation 4 Good Internal Rotation 4 Good Left Flexion (L2) 4- Good- Abduction 4- Good- Adduction 4 Good External Rotation 4- Good- Internal Rotation 4- Good- Knee Strength Knee Manual Muscle Testing Right Flexion (S2) 4- Good- Extension (L3) 4+ Good+ Left Flexion (S2) 4- Good- Extension (L3) 4 Good Ankle/Foot Strength Ankle and Foot Manual Muscle Testing Right Dorsiflexion (L4) 3+ Fair+ Plantarflexion (S1) 3 Fair Left Dorsiflexion (L4) 3- Fair- Plantarflexion (S1) 3- Fair- PT-OP-Q Treatments Start: 01/05/22 17:14 Freq: Status: Active Protocol: Document 02/07/22 13:45 DCW (Rec: 02/07/22 14:28 DCW [id number]) Cardio Equipment Recumbent Elliptical (Biodex) Duration (Minutes) 5 Resistance 3 Seat Position 10 Gym Equipment Shuttle Recovery Unilateral Squats Resistance 25# Bilateral Squats Resistance 62# Therapeutic Exercises Standing Exercises Extension Standing Exercise Name Hip Extension Side bilateral Resistance Red Reps/Minutes x10 Abduction Standing Exercise Name Hip Abduction Side bilateral Resistance Red Reps/Minutes x10 Therapeutic Activity Therapeutic Activity Sit<->Stand Name Sit<->Stand Comments Cures for positioning, posture , hip hinge Neuro Re-Education Treatment Balance Activities Hurdles Details Hurdles Equipment // bars Comments UE support, Fwd and lateral NBOS Details NBOS Surface Firm Equipment @ rail Foam stance Surface Blue foam PT-OP-T Assessment and Plan Start: 01/05/22 17:14 Freq: Status: Active Protocol: Document 02/07/22 13:45 DCW (Rec: 02/07/22 14:28 DCW [id number]) Physical Therapy Assessment Impairments Impairments Activity Tolerance,Balance, Functional Activities, Functional Mobility,Gait, Posture,Strength,Tone, Transfers Goals Three Impairment TUG score of 21.14 using a FWW Pressing Machine Tender Goal (LTG) Pt to decrease time taken to perform TUG while using a FWW to <16 seconds in order to demonstrate an improved gait speed. LTG Duration 04/05/22 Two Impairment Pt shows significant falls risk with Ann score of 10/56 Long-Term Goal (LTG) Pt to score at least 10 points higher on the Ann Balance scale with a score of 20/56 in order to demonstrate a decreased falls risk. LTG Duration 04/05/22 One Impairment Pt does not have an appropriate home exercise program Short Term Goal (STG) Pt to be independent and compliant with an appropriate HEP STG Duration 02/04/22 Assessment Summary Assessment Pt showing improved sit<-> stand, able to lift body weight with LEs, still needs min Ax1 to limit retro lean during transfer and immediately upon standing. Physical Therapy Plan Frequency and Duration Frequency of Treatment 2x/Week Duration of Treatment 90 days Plan of Care Start Date 01/05/22 Plan of Care End Date 04/05/22 Therapeutic Interventions Therapeutic Interventions Aquatic Therapy,Balance Training,Gait Training,Home Exercise Program,Manual Therapy,Neuromuscular Re- education,Patient/Caregiver Education,Self-Care/Home Management,Soft Tissue Mobilization,Therapeutic Activities,Therapeutic Exercises Next Visit Focus/Plan Next Note Type Treatment Note Next Visit Plan LE strengthening, transfers, balance and gait training
--- NOTE | 2022-02-10 14:29 | PT.OTN ---
Current Diagnoses Polyneuropathy, unspecified (02/10/22) Other abnormalities of gait and mobility (02/10/22) Repeated falls (02/10/22) Physical Therapy Treatment Note PT-OP-A Visit Information Start: 01/05/22 17:14 Freq: Status: Active Protocol: Document 02/10/22 13:45 DCW (Rec: 02/10/22 14:29 DCW [id number]) Out-Patient Physical Therapy Visit Information Visit Information Visit Type Treatment Note Visit Start Time 13:45 Visit Stop Time 14:30 Total Visit Minutes 45 Visit Number 5 Number of FINANCE BUSINESS MANAGER Visits 0 Evaluation Information Evaluation Date 01/05/22 PT-OP-B Current Condition Start: 01/05/22 17:14 Freq: Status: Active Protocol: Document 01/05/22 16:00 DCW (Rec: 01/05/22 17:33 DCW [id number]) Current Condition History of Current Condition Onset Date Long-standing history Current Complaints LE neuropathy, poor balance, gait difficulty, falls History of Current Condition Pt is an 86 year old male presenting with a long- standing history of LE polyneuropathy. Pt notes a general muted sensation in his feet and ankles, and feels like his balance has been worsening, but is unsure if his difficulty comes from his actual neuropathy, or just his leg weakness, which he feels is the main issue. Pt notes that he had back surgery November of last year, the cleaned out between L4-5 and put some contraption in, and following therapy, was receiving therapy at a different clinic. Pt reports that both he and the therapist felt that he had reached a plateau, and they were not seeing much progress, however pt admits that since he stopped PT, he has lost a significant amount of LE strength and stability. Notes increased back pain when standing or walking longer than 15-20 minutes. Has had two recent falls, and another that was a few months ago. Admits that he doesn't really worry about his falls, because they have not yet resulted in an injury, but they seem to occur when he is in the bathroom and he just loses his balance. Uses a 4WW around his house, but finds it hard to get the walker into his car , so he keeps a FWW in the car for use when out. Notes that when he showers, he is unable to feel the water on his left foot because of his neuropathy . PT-OP-C Subjective Start: 01/05/22 17:14 Freq: Status: Active Protocol: Document 02/10/22 13:45 DCW (Rec: 02/10/22 14:29 DCW [id number]) OP-PT Subjective Patient Comments Patient Comments Pt notes he is okay today, but admits that he is pretty impatient, feels he isn't improving quickly. PT-OP-D Balance Start: 01/05/22 17:14 Freq: Status: Active Protocol: Document 01/05/22 16:00 DCW (Rec: 01/05/22 17:36 DCW [id number]) Balance Tests Ann Balance Test Ann Balance Test Score 10/56 Ann Impairment Rating 80 to 99% Impaired (Score 1-11 ) Ann Balance Assessment Evaluation Sitting to Standing Ability Independent w/Hands Unsupported Stance Unable w/out Assistance Sitting Unsupported, Feet on Floor Safely- 2 minutes Standing to Sitting Ability Independent, Uncontrolled Transfer Ability Supervision, Verbal Cues Unsupported Stance- Eyes Closed Falls Without Assistance Unsupported Stance- Eyes Open Assist to attain,<15 secs Reaching Forward Standing Supported, Looses Balance Pick- Up Object From Floor Requires Assistance Look Behind Shoulder - Standing Assist to Prevent Fall Turning 360 Degrees Requires Assistance Unsupported Stance, Alternating Feet on Assist to Prevent Fall Stair Unsupported Tandem Stance Balance Lost- Step/Stand Unilateral Leg Stance Unable,assist to not fall Total Score Ann Total Score (out of 56 points) 10 Ann Impairment Rating 80 to 99% Impaired (Score 1-11 ) PT-OP-E Functional Tests Start: 01/05/22 17:14 Freq: Status: Active Protocol: Document 01/05/22 16:00 DCW (Rec: 01/05/22 17:36 DCW [id number]) Functional Tests Timed Up and Go (TUG) Score 21.14 /c FWW Comments 3-trial average: 22.19, 21.37 , 19.87 TUG Impairment Rating 100% Impaired (Score 20) PT-OP-G Mobility & Gait Start: 01/05/22 17:14 Freq: Status: Active Protocol: Document 01/05/22 16:00 DCW (Rec: 01/05/22 17:36 DCW [id number]) OP Gait Assessment Gait Gait Assistance Required: Standby Assistance Assistive Devices Assistive Device Gait Belt,Front Wheeled Walker Gait Deviations General Gait Pattern Decreased Stride Length, Decreased Feet Clearance, Flexed Trunk,Lateral Trunk Lean,Wide Based Gait Factors Limiting Gait Function Factors Limiting Gait Function Decreased Activity Tolerance, Decreased Sensation,Decreased Strength,Poor Balance PT-OP-M Strength Start: 01/05/22 17:36 Freq: Status: Active Protocol: Document 01/05/22 16:00 DCW (Rec: 01/05/22 17:38 DCW [id number]) Hip Strength Hip Manual Muscle Testing Right Flexion (L2) 4- Good- Abduction 4- Good- Adduction 4 Good External Rotation 4 Good Internal Rotation 4 Good Left Flexion (L2) 4- Good- Abduction 4- Good- Adduction 4 Good External Rotation 4- Good- Internal Rotation 4- Good- Knee Strength Knee Manual Muscle Testing Right Flexion (S2) 4- Good- Extension (L3) 4+ Good+ Left Flexion (S2) 4- Good- Extension (L3) 4 Good Ankle/Foot Strength Ankle and Foot Manual Muscle Testing Right Dorsiflexion (L4) 3+ Fair+ Plantarflexion (S1) 3 Fair Left Dorsiflexion (L4) 3- Fair- Plantarflexion (S1) 3- Fair- PT-OP-Q Treatments Start: 01/05/22 17:14 Freq: Status: Active Protocol: Document 02/10/22 13:45 DCW (Rec: 02/10/22 14:29 DCW [id number]) Cardio Equipment Recumbent Elliptical (Biodex) Duration (Minutes) 5 Resistance 3 Seat Position 10 Gym Equipment Shuttle Recovery Unilateral Squats Resistance 25# Bilateral Squats Resistance 62# Therapeutic Exercises Sitting Exercises Ankle Flexion Sitting Exercise Name 4-way ankle flexion Side bilateral Resistance Lv 2 Standing Exercises Extension Standing Exercise Name Hip Extension Side bilateral Resistance Red Reps/Minutes x10 Abduction Standing Exercise Name Hip Abduction Side bilateral Resistance Red Reps/Minutes x10 Neuro Re-Education Treatment Balance Activities Tilt board Details Tilt board Comments DF/PF SLS Details SLS Equipment // bars Tandem Stance Details Tandem stance Equipment // bars Hurdles Details Hurdles Equipment // bars Comments UE support, Fwd and lateral PT-OP-T Assessment and Plan Start: 01/05/22 17:14 Freq: Status: Active Protocol: Document 02/10/22 13:45 DCW (Rec: 02/10/22 14:29 [facility] [id number]) Physical Therapy Assessment Impairments Impairments Activity Tolerance,Balance, Functional Activities, Functional Mobility,Gait, Posture,Strength,Tone, Transfers Goals Three Impairment TUG score of 21.14 using a FWW Care Home Goal (LTG) Pt to decrease time taken to perform TUG while using a FWW to <16 seconds in order to demonstrate an improved gait speed. LTG Duration 04/05/22 Two Impairment Pt shows significant falls risk with Ann score of 10/56 Utilization Management Manager Goal (LTG) Pt to score at least 10 points higher on the Ann Balance scale with a score of 20/56 in order to demonstrate a decreased falls risk. LTG Duration 04/05/22 One Impairment Pt does not have an appropriate home exercise program Short Term Goal (STG) Pt to be independent and compliant with an appropriate HEP STG Duration 02/04/22 Assessment Summary Assessment Pt continues to fatigue quickly throughout his session , multiple short rest breaks, pt does recover quickly. Physical Therapy Plan Frequency and Duration Frequency of Treatment 2x/Week Duration of Treatment 90 days Plan of Care Start Date 01/05/22 Plan of Care End Date 04/05/22 Therapeutic Interventions Therapeutic Interventions Aquatic Therapy,Balance Training,Gait Training,Home Exercise Program,Manual Therapy,Neuromuscular Re- education,Patient/Caregiver Education,Self-Care/Home Management,Soft Tissue Mobilization,Therapeutic Activities,Therapeutic Exercises Next Visit Focus/Plan Next Note Type Treatment Note Next Visit Plan LE strengthening, transfers, balance and gait training
--- NOTE | 2022-02-17 10:25 | PT.OTN ---
Current Diagnoses Polyneuropathy, unspecified (02/17/22) Other abnormalities of gait and mobility (02/17/22) Repeated falls (02/17/22) Physical Therapy Treatment Note PT-OP-A Visit Information Start: 01/05/22 17:14 Freq: Status: Active Protocol: Document 02/17/22 09:45 AMB (Rec: 02/17/22 10:25 AMB [id number]) Out-Patient Physical Therapy Visit Information Visit Information Visit Type Treatment Note Visit Start Time 09:45 Visit Stop Time 10:30 Total Visit Minutes 45 Visit Number 6 PT-OP-B Current Condition Start: 01/05/22 17:14 Freq: Status: Active Protocol: Document 01/05/22 16:00 DCW (Rec: 01/05/22 17:33 DCW [id number]) Current Condition History of Current Condition Onset Date Long-standing history Current Complaints LE neuropathy, poor balance, gait difficulty, falls History of Current Condition Pt is an 86 year old male presenting with a long- standing history of LE polyneuropathy. Pt notes a general muted sensation in his feet and ankles, and feels like his balance has been worsening, but is unsure if his difficulty comes from his actual neuropathy, or just his leg weakness, which he feels is the main issue. Pt notes that he had back surgery November of last year, the cleaned out between L4-5 and put some contraption in, and following therapy, was receiving therapy at a different clinic. Pt reports that both he and the therapist felt that he had reached a plateau, and they were not seeing much progress, however pt admits that since he stopped PT, he has lost a significant amount of LE strength and stability. Notes increased back pain when standing or walking longer than 15-20 minutes. Has had two recent falls, and another that was a few months ago. Admits that he doesn't really worry about his falls, because they have not yet resulted in an injury, but they seem to occur when he is in the bathroom and he just loses his balance. Uses a 4WW around his house, but finds it hard to get the walker into his car , so he keeps a FWW in the car for use when out. Notes that when he showers, he is unable to feel the water on his left foot because of his neuropathy . PT-OP-C Subjective Start: 01/05/22 17:14 Freq: Status: Active Protocol: Document 02/17/22 09:45 AMB (Rec: 02/17/22 10:25 AMB [id number]) OP-PT Subjective Patient Comments Patient Comments No new falls. Continues to feel quite fatigued. PT-OP-D Balance Start: 01/05/22 17:14 Freq: Status: Active Protocol: Document 01/05/22 16:00 DCW (Rec: 01/05/22 17:36 DCW [id number]) Balance Tests Ann Balance Test Ann Balance Test Score 10/56 Ann Impairment Rating 80 to 99% Impaired (Score 1-11 ) Ann Balance Assessment Evaluation Sitting to Standing Ability Independent w/Hands Unsupported Stance Unable w/out Assistance Sitting Unsupported, Feet on Floor Safely- 2 minutes Standing to Sitting Ability Independent, Uncontrolled Transfer Ability Supervision, Verbal Cues Unsupported Stance- Eyes Closed Falls Without Assistance Unsupported Stance- Eyes Open Assist to attain,<15 secs Reaching Forward Standing Supported, Looses Balance Pick- Up Object From Floor Requires Assistance Look Behind Shoulder - Standing Assist to Prevent Fall Turning 360 Degrees Requires Assistance Unsupported Stance, Alternating Feet on Assist to Prevent Fall Stair Unsupported Tandem Stance Balance Lost- Step/Stand Unilateral Leg Stance Unable,assist to not fall Total Score Ann Total Score (out of 56 points) 10 Ann Impairment Rating 80 to 99% Impaired (Score 1-11 ) PT-OP-E Functional Tests Start: 01/05/22 17:14 Freq: Status: Active Protocol: Document 01/05/22 16:00 DCW (Rec: 01/05/22 17:36 DCW [id number]) Functional Tests Timed Up and Go (TUG) Score 21.14 /c FWW Comments 3-trial average: 22.19, 21.37 , 19.87 TUG Impairment Rating 100% Impaired (Score 20) PT-OP-G Mobility & Gait Start: 01/05/22 17:14 Freq: Status: Active Protocol: Document 01/05/22 16:00 DCW (Rec: 01/05/22 17:36 DCW [id number]) OP Gait Assessment Gait Gait Assistance Required: Standby Assistance Assistive Devices Assistive Device Gait Belt,Front Wheeled Walker Gait Deviations General Gait Pattern Decreased Stride Length, Decreased Feet Clearance, Flexed Trunk,Lateral Trunk Lean,Wide Based Gait Factors Limiting Gait Function Factors Limiting Gait Function Decreased Activity Tolerance, Decreased Sensation,Decreased Strength,Poor Balance PT-OP-M Strength Start: 01/05/22 17:36 Freq: Status: Active Protocol: Document 01/05/22 16:00 DCW (Rec: 01/05/22 17:38 DCW [id number]) Hip Strength Hip Manual Muscle Testing Right Flexion (L2) 4- Good- Abduction 4- Good- Adduction 4 Good External Rotation 4 Good Internal Rotation 4 Good Left Flexion (L2) 4- Good- Abduction 4- Good- Adduction 4 Good External Rotation 4- Good- Internal Rotation 4- Good- Knee Strength Knee Manual Muscle Testing Right Flexion (S2) 4- Good- Extension (L3) 4+ Good+ Left Flexion (S2) 4- Good- Extension (L3) 4 Good Ankle/Foot Strength Ankle and Foot Manual Muscle Testing Right Dorsiflexion (L4) 3+ Fair+ Plantarflexion (S1) 3 Fair Left Dorsiflexion (L4) 3- Fair- Plantarflexion (S1) 3- Fair- PT-OP-Q Treatments Start: 01/05/22 17:14 Freq: Status: Active Protocol: Document 02/17/22 09:45 AMB (Rec: 02/17/22 10:25 AMB [id number]) Cardio Equipment Recumbent Elliptical (Biodex) Duration (Minutes) 5 Resistance 4>5 Seat Position 10 Gym Equipment Shuttle Recovery Unilateral Squats Resistance 25# Bilateral Squats Resistance 62# Shuttle Recovery Platform Stable Reps/Time 10 Therapeutic Exercises Standing Exercises Extension Standing Exercise Name Hip Extension Side bilateral Resistance Red Reps/Minutes x10 Abduction Standing Exercise Name Hip Abduction Side bilateral Resistance Red Reps/Minutes x10 Neuro Re-Education Treatment Balance Activities Tandem Stance Details Tandem stance Equipment // bars NBOS Details NBOS Surface Firm Equipment @ rail Comments working on looking forward rather than at feet, posture PT-OP-T Assessment and Plan Start: 01/05/22 17:14 Freq: Status: Active Protocol: Document 02/17/22 09:45 AMB (Rec: 02/17/22 10:25 AMB [id number]) Physical Therapy Assessment Goals Three Impairment TUG score of 21.14 using a FWW Economic Developer Goal (LTG) Pt to decrease time taken to perform TUG while using a FWW to <16 seconds in order to demonstrate an improved gait speed. LTG Duration 04/05/22 Two Impairment Pt shows significant falls risk with Ann score of 10/56 Economic Developer Goal (LTG) Pt to score at least 10 points higher on the Ann Balance scale with a score of 20/56 in order to demonstrate a decreased falls risk. LTG Duration 04/05/22 One Impairment Pt does not have an appropriate home exercise program Short Term Goal (STG) Pt to be independent and compliant with an appropriate HEP STG Duration 02/04/22 Assessment Summary Assessment Pt continues to require rest breaks especially after standing activities. Sit to stand was improved from 2 visits previous. Not requiring as much assist. Physical Therapy Plan Next Visit Focus/Plan Next Note Type Treatment Note Next Visit Plan LE strengthening, transfers, balance and gait training
--- NOTE | 2022-02-22 15:45 | PT.OTN ---
Current Diagnoses Polyneuropathy, unspecified (02/22/22) Other abnormalities of gait and mobility (02/22/22) Repeated falls (02/22/22) Physical Therapy Treatment Note PT-OP-A Visit Information Start: 01/05/22 17:14 Freq: Status: Active Protocol: Document 02/22/22 14:38 AMB (Rec: 02/22/22 15:45 AMB [id number]) Out-Patient Physical Therapy Visit Information Visit Information Visit Type Treatment Note Visit Start Time 14:30 Visit Stop Time 15:15 Total Visit Minutes 45 Visit Number 7 PT-OP-B Current Condition Start: 01/05/22 17:14 Freq: Status: Active Protocol: Document 01/05/22 16:00 DCW (Rec: 01/05/22 17:33 DCW [id number]) Current Condition History of Current Condition Onset Date Long-standing history Current Complaints LE neuropathy, poor balance, gait difficulty, falls History of Current Condition Pt is an 86 year old male presenting with a long- standing history of LE polyneuropathy. Pt notes a general muted sensation in his feet and ankles, and feels like his balance has been worsening, but is unsure if his difficulty comes from his actual neuropathy, or just his leg weakness, which he feels is the main issue. Pt notes that he had back surgery November of last year, the cleaned out between L4-5 and put some contraption in, and following therapy, was receiving therapy at a different clinic. Pt reports that both he and the therapist felt that he had reached a plateau, and they were not seeing much progress, however pt admits that since he stopped PT, he has lost a significant amount of LE strength and stability. Notes increased back pain when standing or walking longer than 15-20 minutes. Has had two recent falls, and another that was a few months ago. Admits that he doesn't really worry about his falls, because they have not yet resulted in an injury, but they seem to occur when he is in the bathroom and he just loses his balance. Uses a 4WW around his house, but finds it hard to get the walker into his car , so he keeps a FWW in the car for use when out. Notes that when he showers, he is unable to feel the water on his left foot because of his neuropathy . PT-OP-C Subjective Start: 01/05/22 17:14 Freq: Status: Active Protocol: Document 02/22/22 14:38 AMB (Rec: 02/22/22 15:45 AMB [id number]) OP-PT Subjective Patient Comments Patient Comments Very fatigued, no falls. Doesn't sleep well. Upset about schedule. PT-OP-D Balance Start: 01/05/22 17:14 Freq: Status: Active Protocol: Document 01/05/22 16:00 DCW (Rec: 01/05/22 17:36 DCW [id number]) Balance Tests Ann Balance Test Ann Balance Test Score 10/56 Ann Impairment Rating 80 to 99% Impaired (Score 1-11 ) Ann Balance Assessment Evaluation Sitting to Standing Ability Independent w/Hands Unsupported Stance Unable w/out Assistance Sitting Unsupported, Feet on Floor Safely- 2 minutes Standing to Sitting Ability Independent, Uncontrolled Transfer Ability Supervision, Verbal Cues Unsupported Stance- Eyes Closed Falls Without Assistance Unsupported Stance- Eyes Open Assist to attain,<15 secs Reaching Forward Standing Supported, Looses Balance Pick- Up Object From Floor Requires Assistance Look Behind Shoulder - Standing Assist to Prevent Fall Turning 360 Degrees Requires Assistance Unsupported Stance, Alternating Feet on Assist to Prevent Fall Stair Unsupported Tandem Stance Balance Lost- Step/Stand Unilateral Leg Stance Unable,assist to not fall Total Score Ann Total Score (out of 56 points) 10 Ann Impairment Rating 80 to 99% Impaired (Score 1-11 ) PT-OP-E Functional Tests Start: 01/05/22 17:14 Freq: Status: Active Protocol: Document 01/05/22 16:00 DCW (Rec: 01/05/22 17:36 DCW [id number]) Functional Tests Timed Up and Go (TUG) Score 21.14 /c FWW Comments 3-trial average: 22.19, 21.37 , 19.87 TUG Impairment Rating 100% Impaired (Score 20) PT-OP-G Mobility & Gait Start: 01/05/22 17:14 Freq: Status: Active Protocol: Document 01/05/22 16:00 DCW (Rec: 01/05/22 17:36 DCW [id number]) OP Gait Assessment Gait Gait Assistance Required: Standby Assistance Assistive Devices Assistive Device Gait Belt,Front Wheeled Walker Gait Deviations General Gait Pattern Decreased Stride Length, Decreased Feet Clearance, Flexed Trunk,Lateral Trunk Lean,Wide Based Gait Factors Limiting Gait Function Factors Limiting Gait Function Decreased Activity Tolerance, Decreased Sensation,Decreased Strength,Poor Balance PT-OP-M Strength Start: 01/05/22 17:36 Freq: Status: Active Protocol: Document 01/05/22 16:00 DCW (Rec: 01/05/22 17:38 DCW [id number]) Hip Strength Hip Manual Muscle Testing Right Flexion (L2) 4- Good- Abduction 4- Good- Adduction 4 Good External Rotation 4 Good Internal Rotation 4 Good Left Flexion (L2) 4- Good- Abduction 4- Good- Adduction 4 Good External Rotation 4- Good- Internal Rotation 4- Good- Knee Strength Knee Manual Muscle Testing Right Flexion (S2) 4- Good- Extension (L3) 4+ Good+ Left Flexion (S2) 4- Good- Extension (L3) 4 Good Ankle/Foot Strength Ankle and Foot Manual Muscle Testing Right Dorsiflexion (L4) 3+ Fair+ Plantarflexion (S1) 3 Fair Left Dorsiflexion (L4) 3- Fair- Plantarflexion (S1) 3- Fair- PT-OP-Q Treatments Start: 01/05/22 17:14 Freq: Status: Active Protocol: Document 02/22/22 14:38 AMB (Rec: 02/22/22 15:45 AMB [id number]) Cardio Equipment Recumbent Stepper (Sci-Fit) Duration (Minutes) 5 Resistance 3 Seat Position 12 Gym Equipment Shuttle Recovery Unilateral Squats Resistance 25# Reps/Time 10 ea Bilateral Squats Resistance 62# Shuttle Recovery Platform Stable Reps/Time 10 Therapeutic Exercises Standing Exercises mini squats Standing Exercise Name at FWW/ chair behind Marching Standing Exercise Name at FWW/ chair behind Reps/Minutes 2x10 Neuro Re-Education Treatment Balance Activities WBOS Details at walker Comments trying to reduce UE support- challenging SLS Details SLS Equipment // bars PT-OP-T Assessment and Plan Start: 01/05/22 17:14 Freq: Status: Active Protocol: Document 02/22/22 14:38 AMB (Rec: 02/22/22 15:45 AMB [id number]) Physical Therapy Assessment Goals Three Impairment TUG score of 21.14 using a FWW Gut Snatcher Goal (LTG) Pt to decrease time taken to perform TUG while using a FWW to <16 seconds in order to demonstrate an improved gait speed. LTG Duration 04/05/22 Two Impairment Pt shows significant falls risk with Ann score of 10/56 Gut Snatcher Goal (LTG) Pt to score at least 10 points higher on the Ann Balance scale with a score of 20/56 in order to demonstrate a decreased falls risk. LTG Duration 04/05/22 One Impairment Pt does not have an appropriate home exercise program Short Term Goal (STG) Pt to be independent and compliant with an appropriate HEP STG Duration 02/04/22 Assessment Summary Assessment Pt required fewer rest breaks today, but continues to need UE support with balance exercises, can only hold for a few seconds with WBOS when not holding onto FWW. Physical Therapy Plan Next Visit Focus/Plan Next Note Type Treatment Note Next Visit Plan LE strengthening, transfers, balance and gait training
--- NOTE | 2022-02-24 21:26 | PT.OTN ---
Current Diagnoses Polyneuropathy, unspecified (02/24/22) Other abnormalities of gait and mobility (02/24/22) Repeated falls (02/24/22) Physical Therapy Treatment Note PT-OP-A Visit Information Start: 01/05/22 17:14 Freq: Status: Active Protocol: Document 02/24/22 14:31 AMB (Rec: 02/24/22 15:08 AMB [id number]) Out-Patient Physical Therapy Visit Information Visit Information Visit Type Treatment Note Visit Start Time 14:30 Visit Stop Time 15:15 Total Visit Minutes 45 Visit Number 8 PT-OP-B Current Condition Start: 01/05/22 17:14 Freq: Status: Active Protocol: Document 01/05/22 16:00 DCW (Rec: 01/05/22 17:33 DCW [id number]) Current Condition History of Current Condition Onset Date Long-standing history Current Complaints LE neuropathy, poor balance, gait difficulty, falls History of Current Condition Pt is an 86 year old male presenting with a long- standing history of LE polyneuropathy. Pt notes a general muted sensation in his feet and ankles, and feels like his balance has been worsening, but is unsure if his difficulty comes from his actual neuropathy, or just his leg weakness, which he feels is the main issue. Pt notes that he had back surgery November of last year, the cleaned out between L4-5 and put some contraption in, and following therapy, was receiving therapy at a different clinic. Pt reports that both he and the therapist felt that he had reached a plateau, and they were not seeing much progress, however pt admits that since he stopped PT, he has lost a significant amount of LE strength and stability. Notes increased back pain when standing or walking longer than 15-20 minutes. Has had two recent falls, and another that was a few months ago. Admits that he doesn't really worry about his falls, because they have not yet resulted in an injury, but they seem to occur when he is in the bathroom and he just loses his balance. Uses a 4WW around his house, but finds it hard to get the walker into his car , so he keeps a FWW in the car for use when out. Notes that when he showers, he is unable to feel the water on his left foot because of his neuropathy . PT-OP-C Subjective Start: 01/05/22 17:14 Freq: Status: Active Protocol: Document 02/24/22 14:31 AMB (Rec: 02/24/22 15:08 AMB [id number]) OP-PT Subjective Patient Comments Patient Comments Did try HEP, squats and marches at home went fine, did them 1x/day. PT-OP-D Balance Start: 01/05/22 17:14 Freq: Status: Active Protocol: Document 01/05/22 16:00 DCW (Rec: 01/05/22 17:36 DCW [id number]) Balance Tests Ann Balance Test Ann Balance Test Score 10/56 Ann Impairment Rating 80 to 99% Impaired (Score 1-11 ) Ann Balance Assessment Evaluation Sitting to Standing Ability Independent w/Hands Unsupported Stance Unable w/out Assistance Sitting Unsupported, Feet on Floor Safely- 2 minutes Standing to Sitting Ability Independent, Uncontrolled Transfer Ability Supervision, Verbal Cues Unsupported Stance- Eyes Closed Falls Without Assistance Unsupported Stance- Eyes Open Assist to attain,<15 secs Reaching Forward Standing Supported, Looses Balance Pick- Up Object From Floor Requires Assistance Look Behind Shoulder - Standing Assist to Prevent Fall Turning 360 Degrees Requires Assistance Unsupported Stance, Alternating Feet on Assist to Prevent Fall Stair Unsupported Tandem Stance Balance Lost- Step/Stand Unilateral Leg Stance Unable,assist to not fall Total Score Ann Total Score (out of 56 points) 10 Ann Impairment Rating 80 to 99% Impaired (Score 1-11 ) PT-OP-E Functional Tests Start: 01/05/22 17:14 Freq: Status: Active Protocol: Document 01/05/22 16:00 DCW (Rec: 01/05/22 17:36 DCW [id number]) Functional Tests Timed Up and Go (TUG) Score 21.14 /c FWW Comments 3-trial average: 22.19, 21.37 , 19.87 TUG Impairment Rating 100% Impaired (Score 20) PT-OP-G Mobility & Gait Start: 01/05/22 17:14 Freq: Status: Active Protocol: Document 01/05/22 16:00 DCW (Rec: 01/05/22 17:36 DCW [id number]) OP Gait Assessment Gait Gait Assistance Required: Standby Assistance Assistive Devices Assistive Device Gait Belt,Front Wheeled Walker Gait Deviations General Gait Pattern Decreased Stride Length, Decreased Feet Clearance, Flexed Trunk,Lateral Trunk Lean,Wide Based Gait Factors Limiting Gait Function Factors Limiting Gait Function Decreased Activity Tolerance, Decreased Sensation,Decreased Strength,Poor Balance PT-OP-M Strength Start: 01/05/22 17:36 Freq: Status: Active Protocol: Document 01/05/22 16:00 DCW (Rec: 01/05/22 17:38 DCW [id number]) Hip Strength Hip Manual Muscle Testing Right Flexion (L2) 4- Good- Abduction 4- Good- Adduction 4 Good External Rotation 4 Good Internal Rotation 4 Good Left Flexion (L2) 4- Good- Abduction 4- Good- Adduction 4 Good External Rotation 4- Good- Internal Rotation 4- Good- Knee Strength Knee Manual Muscle Testing Right Flexion (S2) 4- Good- Extension (L3) 4+ Good+ Left Flexion (S2) 4- Good- Extension (L3) 4 Good Ankle/Foot Strength Ankle and Foot Manual Muscle Testing Right Dorsiflexion (L4) 3+ Fair+ Plantarflexion (S1) 3 Fair Left Dorsiflexion (L4) 3- Fair- Plantarflexion (S1) 3- Fair- PT-OP-Q Treatments Start: 01/05/22 17:14 Freq: Status: Active Protocol: Document 02/24/22 14:31 AMB (Rec: 02/24/22 15:08 AMB [id number]) Cardio Equipment Recumbent Elliptical (Biodex) Duration (Minutes) 5 Resistance 4>5 Seat Position 10 Therapeutic Exercises Standing Exercises sidestepping Standing Exercise Name AROM // bars Reps/Minutes 10'x4 partial forward lunge Standing Exercise Name // bars Reps/Minutes 10 mini squats Standing Exercise Name // bars Reps/Minutes 2x10 Marching Standing Exercise Name // bars Reps/Minutes 2x10 Neuro Re-Education Treatment Balance Activities tap ups Details 4 step // bars Reps/Duration 2x10 Hurdles Details Hurdles Equipment // bars Comments UE support, Fwd and lateral Foam stance Surface Blue foam PT-OP-T Assessment and Plan Start: 01/05/22 17:14 Freq: Status: Active Protocol: Document 02/24/22 14:31 AMB (Rec: 02/24/22 15:08 AMB [id number]) Physical Therapy Assessment Goals Three Impairment TUG score of 21.14 using a FWW Automotive Hardware Engineer Goal (LTG) Pt to decrease time taken to perform TUG while using a FWW to <16 seconds in order to demonstrate an improved gait speed. LTG Duration 04/05/22 Two Impairment Pt shows significant falls risk with Ann score of 10/56 Automotive Hardware Engineer Goal (LTG) Pt to score at least 10 points higher on the Ann Balance scale with a score of 20/56 in order to demonstrate a decreased falls risk. LTG Duration 04/05/22 One Impairment Pt does not have an appropriate home exercise program Short Term Goal (STG) Pt to be independent and compliant with an appropriate HEP STG Duration 02/04/22 Assessment Summary Assessment Pt did need continued rest breaks today, especially fatigued after hurdles. Does well in // bars with UE support, but ankle weakness is significant. Physical Therapy Plan Next Visit Focus/Plan Next Note Type Treatment Note Next Visit Plan LE strengthening, transfers, balance and gait training
--- NOTE | 2022-02-28 10:57 | PT.OTN ---
Current Diagnoses Polyneuropathy, unspecified (02/28/22) Other abnormalities of gait and mobility (02/28/22) Repeated falls (02/28/22) Physical Therapy Treatment Note PT-OP-A Visit Information Start: 01/05/22 17:14 Freq: Status: Active Protocol: Document 02/28/22 09:56 AMB (Rec: 02/28/22 10:56 AMB [id number]) Out-Patient Physical Therapy Visit Information Visit Information Visit Type Progress Note Visit Start Time 09:45 Visit Stop Time 10:30 Total Visit Minutes 45 Visit Number 9 PT-OP-B Current Condition Start: 01/05/22 17:14 Freq: Status: Active Protocol: Document 01/05/22 16:00 DCW (Rec: 01/05/22 17:33 DCW [id number]) Current Condition History of Current Condition Onset Date Long-standing history Current Complaints LE neuropathy, poor balance, gait difficulty, falls History of Current Condition Pt is an 86 year old male presenting with a long- standing history of LE polyneuropathy. Pt notes a general muted sensation in his feet and ankles, and feels like his balance has been worsening, but is unsure if his difficulty comes from his actual neuropathy, or just his leg weakness, which he feels is the main issue. Pt notes that he had back surgery November of last year, the cleaned out between L4-5 and put some contraption in, and following therapy, was receiving therapy at a different clinic. Pt reports that both he and the therapist felt that he had reached a plateau, and they were not seeing much progress, however pt admits that since he stopped PT, he has lost a significant amount of LE strength and stability. Notes increased back pain when standing or walking longer than 15-20 minutes. Has had two recent falls, and another that was a few months ago. Admits that he doesn't really worry about his falls, because they have not yet resulted in an injury, but they seem to occur when he is in the bathroom and he just loses his balance. Uses a 4WW around his house, but finds it hard to get the walker into his car , so he keeps a FWW in the car for use when out. Notes that when he showers, he is unable to feel the water on his left foot because of his neuropathy . PT-OP-C Subjective Start: 01/05/22 17:14 Freq: Status: Active Protocol: Document 02/28/22 09:56 AMB (Rec: 02/28/22 10:56 AMB [id number]) OP-PT Subjective Patient Comments Patient Comments Difficult to do exercises 2x/ day, pretty wiped by the afternoon PT-OP-D Balance Start: 01/05/22 17:14 Freq: Status: Active Protocol: Document 01/05/22 16:00 DCW (Rec: 01/05/22 17:36 DCW [id number]) Balance Tests Cunha Balance Test Cunha Balance Test Score 10/56 Cunha Impairment Rating 80 to 99% Impaired (Score 1-11 ) Cunha Balance Assessment Evaluation Sitting to Standing Ability Independent w/Hands Unsupported Stance Unable w/out Assistance Sitting Unsupported, Feet on Floor Safely- 2 minutes Standing to Sitting Ability Independent, Uncontrolled Transfer Ability Supervision, Verbal Cues Unsupported Stance- Eyes Closed Falls Without Assistance Unsupported Stance- Eyes Open Assist to attain,<15 secs Reaching Forward Standing Supported, Looses Balance Pick- Up Object From Floor Requires Assistance Look Behind Shoulder - Standing Assist to Prevent Fall Turning 360 Degrees Requires Assistance Unsupported Stance, Alternating Feet on Assist to Prevent Fall Stair Unsupported Tandem Stance Balance Lost- Step/Stand Unilateral Leg Stance Unable,assist to not fall Total Score Cunha Total Score (out of 56 points) 10 Cunha Impairment Rating 80 to 99% Impaired (Score 1-11 ) PT-OP-E Functional Tests Start: 01/05/22 17:14 Freq: Status: Active Protocol: Document 01/05/22 16:00 DCW (Rec: 01/05/22 17:36 DCW [id number]) Functional Tests Timed Up and Go (TUG) Score 21.14 /c FWW Comments 3-trial average: 22.19, 21.37 , 19.87 TUG Impairment Rating 100% Impaired (Score 20) PT-OP-G Mobility & Gait Start: 01/05/22 17:14 Freq: Status: Active Protocol: Document 01/05/22 16:00 DCW (Rec: 01/05/22 17:36 DCW [id number]) OP Gait Assessment Gait Gait Assistance Required: Standby Assistance Assistive Devices Assistive Device Gait Belt,Front Wheeled Walker Gait Deviations General Gait Pattern Decreased Stride Length, Decreased Feet Clearance, Flexed Trunk,Lateral Trunk Lean,Wide Based Gait Factors Limiting Gait Function Factors Limiting Gait Function Decreased Activity Tolerance, Decreased Sensation,Decreased Strength,Poor Balance PT-OP-M Strength Start: 01/05/22 17:36 Freq: Status: Active Protocol: Document 01/05/22 16:00 DCW (Rec: 01/05/22 17:38 DCW [id number]) Hip Strength Hip Manual Muscle Testing Right Flexion (L2) 4- Good- Abduction 4- Good- Adduction 4 Good External Rotation 4 Good Internal Rotation 4 Good Left Flexion (L2) 4- Good- Abduction 4- Good- Adduction 4 Good External Rotation 4- Good- Internal Rotation 4- Good- Knee Strength Knee Manual Muscle Testing Right Flexion (S2) 4- Good- Extension (L3) 4+ Good+ Left Flexion (S2) 4- Good- Extension (L3) 4 Good Ankle/Foot Strength Ankle and Foot Manual Muscle Testing Right Dorsiflexion (L4) 3+ Fair+ Plantarflexion (S1) 3 Fair Left Dorsiflexion (L4) 3- Fair- Plantarflexion (S1) 3- Fair- PT-OP-Q Treatments Start: 01/05/22 17:14 Freq: Status: Active Protocol: Document 02/28/22 09:56 AMB (Rec: 02/28/22 10:56 AMB [id number]) Cardio Equipment Recumbent Elliptical (Biodex) Duration (Minutes) 5 Resistance 5 Seat Position 10 Gym Equipment Shuttle Recovery Unilateral Squats Resistance 25# Reps/Time 10 ea Bilateral Squats Resistance 50# Shuttle Recovery Platform Stable Reps/Time 10 Therapeutic Exercises Sitting Exercises sit to stand Sitting Exercise Name work at reducing UE support Reps/Minutes 3 Ankle Flexion Sitting Exercise Name 4-way ankle flexion Side bilateral Resistance Lv 2 Standing Exercises partial forward lunge Standing Exercise Name rail Reps/Minutes 10 mini squats Standing Exercise Name rail Reps/Minutes 2x10 Neuro Re-Education Treatment Balance Activities transfer Details from chair to chair Comments reducing UE support WBOS Details at walker Comments trying to reduce UE support- challenging PT-OP-T Assessment and Plan Start: 01/05/22 17:14 Freq: Status: Active Protocol: Document 02/28/22 09:56 AMB (Rec: 02/28/22 10:56 AMB [id number]) Physical Therapy Assessment Goals Three Impairment TUG score of 21.14 using a FWW Alf Goal (LTG) Pt to decrease time taken to perform TUG while using a FWW to <16 seconds in order to demonstrate an improved gait speed. 02/28: 25.5 seconds LTG Duration 04/05/22 Two Impairment Pt shows significant falls risk with Cunha score of 10/56 Alf Goal (LTG) Pt to score at least 10 points higher on the Cunha Balance scale with a score of 20/56 in order to demonstrate a decreased falls risk. 02/28: 13 /56 LTG Duration 04/05/22 One Impairment Pt does not have an appropriate home exercise program Short Term Goal (STG) Pt to be independent and compliant with an appropriate HEP STG Duration 02/04/22 Assessment Summary Assessment Pt's CUNHA score has improved slightly since eval, but TUG score declined. Pt did have significant decline from initial eval to second visit due to 1 month c COVID, will continue to benefit from PT to improve balance/gait/strength to reduce fall risk and improve activity tolerance. Physical Therapy Plan Next Visit Focus/Plan Next Note Type Treatment Note Next Visit Plan LE strengthening, transfers, balance and gait training
--- NOTE | 2022-03-03 16:28 | PT.OTN ---
Current Diagnoses Polyneuropathy, unspecified (03/03/22) Other abnormalities of gait and mobility (03/03/22) Repeated falls (03/03/22) Physical Therapy Treatment Note PT-OP-A Visit Information Start: 01/05/22 17:14 Freq: Status: Active Protocol: Document 03/03/22 12:59 SAK (Rec: 03/03/22 13:45 SAK [id number]) Out-Patient Physical Therapy Visit Information Visit Information Visit Type Treatment Note Visit Start Time 13:00 Visit Stop Time 13:45 Total Visit Minutes 45 Visit Number 10 Evaluation Information Evaluation Date 01/05/22 PT-OP-B Current Condition Start: 01/05/22 17:14 Freq: Status: Active Protocol: Document 01/05/22 16:00 DCW (Rec: 01/05/22 17:33 DCW [id number]) Current Condition History of Current Condition Onset Date Long-standing history Current Complaints LE neuropathy, poor balance, gait difficulty, falls History of Current Condition Pt is an 86 year old male presenting with a long- standing history of LE polyneuropathy. Pt notes a general muted sensation in his feet and ankles, and feels like his balance has been worsening, but is unsure if his difficulty comes from his actual neuropathy, or just his leg weakness, which he feels is the main issue. Pt notes that he had back surgery November of last year, the cleaned out between L4-5 and put some contraption in, and following therapy, was receiving therapy at a different clinic. Pt reports that both he and the therapist felt that he had reached a plateau, and they were not seeing much progress, however pt admits that since he stopped PT, he has lost a significant amount of LE strength and stability. Notes increased back pain when standing or walking longer than 15-20 minutes. Has had two recent falls, and another that was a few months ago. Admits that he doesn't really worry about his falls, because they have not yet resulted in an injury, but they seem to occur when he is in the bathroom and he just loses his balance. Uses a 4WW around his house, but finds it hard to get the walker into his car , so he keeps a FWW in the car for use when out. Notes that when he showers, he is unable to feel the water on his left foot because of his neuropathy . PT-OP-C Subjective Start: 01/05/22 17:14 Freq: Status: Active Protocol: Document 03/03/22 12:59 SAK (Rec: 03/03/22 13:45 SAK [id number]) OP-PT Subjective Patient Comments Patient Comments Balance is my biggest issue. Strength an issue as well especially left foot and ankle . Wants to be able to walk without assistance or at the most, a cane. PT-OP-D Balance Start: 01/05/22 17:14 Freq: Status: Active Protocol: Document 01/05/22 16:00 DCW (Rec: 01/05/22 17:36 DCW [id number]) Balance Tests Ann Balance Test Ann Balance Test Score 10/56 Ann Impairment Rating 80 to 99% Impaired (Score 1-11 ) Ann Balance Assessment Evaluation Sitting to Standing Ability Independent w/Hands Unsupported Stance Unable w/out Assistance Sitting Unsupported, Feet on Floor Safely- 2 minutes Standing to Sitting Ability Independent, Uncontrolled Transfer Ability Supervision, Verbal Cues Unsupported Stance- Eyes Closed Falls Without Assistance Unsupported Stance- Eyes Open Assist to attain,<15 secs Reaching Forward Standing Supported, Looses Balance Pick- Up Object From Floor Requires Assistance Look Behind Shoulder - Standing Assist to Prevent Fall Turning 360 Degrees Requires Assistance Unsupported Stance, Alternating Feet on Assist to Prevent Fall Stair Unsupported Tandem Stance Balance Lost- Step/Stand Unilateral Leg Stance Unable,assist to not fall Total Score Ann Total Score (out of 56 points) 10 Ann Impairment Rating 80 to 99% Impaired (Score 1-11 ) PT-OP-E Functional Tests Start: 01/05/22 17:14 Freq: Status: Active Protocol: Document 01/05/22 16:00 DCW (Rec: 01/05/22 17:36 DCW [id number]) Functional Tests Timed Up and Go (TUG) Score 21.14 /c FWW Comments 3-trial average: 22.19, 21.37 , 19.87 TUG Impairment Rating 100% Impaired (Score 20) PT-OP-G Mobility & Gait Start: 01/05/22 17:14 Freq: Status: Active Protocol: Document 01/05/22 16:00 DCW (Rec: 01/05/22 17:36 DCW [id number]) OP Gait Assessment Gait Gait Assistance Required: Standby Assistance Assistive Devices Assistive Device Gait Belt,Front Wheeled Walker Gait Deviations General Gait Pattern Decreased Stride Length, Decreased Feet Clearance, Flexed Trunk,Lateral Trunk Lean,Wide Based Gait Factors Limiting Gait Function Factors Limiting Gait Function Decreased Activity Tolerance, Decreased Sensation,Decreased Strength,Poor Balance PT-OP-M Strength Start: 01/05/22 17:36 Freq: Status: Active Protocol: Document 01/05/22 16:00 DCW (Rec: 01/05/22 17:38 DCW [id number]) Hip Strength Hip Manual Muscle Testing Right Flexion (L2) 4- Good- Abduction 4- Good- Adduction 4 Good External Rotation 4 Good Internal Rotation 4 Good Left Flexion (L2) 4- Good- Abduction 4- Good- Adduction 4 Good External Rotation 4- Good- Internal Rotation 4- Good- Knee Strength Knee Manual Muscle Testing Right Flexion (S2) 4- Good- Extension (L3) 4+ Good+ Left Flexion (S2) 4- Good- Extension (L3) 4 Good Ankle/Foot Strength Ankle and Foot Manual Muscle Testing Right Dorsiflexion (L4) 3+ Fair+ Plantarflexion (S1) 3 Fair Left Dorsiflexion (L4) 3- Fair- Plantarflexion (S1) 3- Fair- PT-OP-Q Treatments Start: 01/05/22 17:14 Freq: Status: Active Protocol: Document 03/03/22 12:59 [facility] (Rec: 03/03/22 13:45 [facility] [id number]) Cardio Equipment Recumbent Elliptical (Biodex) Duration (Minutes) 6 Resistance 5 Seat Position 10 Gym Equipment Shuttle Recovery Unilateral Squats Resistance 25# Reps/Time 10 ea Bilateral Squats Resistance 50# Shuttle Recovery Platform Stable Reps/Time 10 Therapeutic Exercises Sitting Exercises sit to stand Sitting Exercise Name work at reducing UE support Reps/Minutes 4x Comments fatigued, needs mod verbal and tactile cues for set up and performance Ankle Flexion Sitting Exercise Name 4-way ankle flexion Side bilateral Resistance Lv 2 Reps/Minutes 10x ea Standing Exercises mini squats Standing Exercise Name rail Reps/Minutes 2x10 Neuro Re-Education Treatment Balance Activities Tilt board Details Tilt board A/P Comments easily loses balances, needs moderate UE support Hurdles Details Hurdles Equipment // bars Comments UE support, Fwd and lateral 3 times ea Foam stance Surface Blue foam Reps/Duration 3 min Comments mod UE support telly PT-OP-T Assessment and Plan Start: 01/05/22 17:14 Freq: Status: Active Protocol: Document 03/03/22 12:59 [facility] (Rec: 03/03/22 13:45 SAK [id number]) Physical Therapy Assessment Goals Three Impairment TUG score of 21.14 using a FWW Oven Unloader Goal (LTG) Pt to decrease time taken to perform TUG while using a FWW to <16 seconds in order to demonstrate an improved gait speed. 02/28: 25.5 seconds LTG Duration 04/05/22 Two Impairment Pt shows significant falls risk with Ann score of 10/56 Oven Unloader Goal (LTG) Pt to score at least 10 points higher on the Ann Balance scale with a score of 20/56 in order to demonstrate a decreased falls risk. 02/28: 56 LTG Duration 04/05/22 One Impairment Pt does not have an appropriate home exercise program Short Term Goal (STG) Pt to be independent and compliant with an appropriate HEP STG Duration 02/04/22 Assessment Summary Assessment Patient had much difficulty with balance tasks, losing balance both forward and backward requiring extensive use of hands for support. Needed moderate verbal and tactile cues for set-up and performance of controlled sit to stand, would benefit from practicing from higher surface than standard height chair used today. Physical Therapy Plan Frequency and Duration Frequency of Treatment 2x/Week Duration of Treatment 90 days Plan of Care Start Date 01/05/22 Plan of Care End Date 04/05/22 Therapeutic Interventions Therapeutic Interventions Aquatic Therapy,Balance Training,Gait Training,Home Exercise Program,Manual Therapy,Neuromuscular Re- education,Patient/Caregiver Education,Self-Care/Home Management,Soft Tissue Mobilization,Therapeutic Activities,Therapeutic Exercises Next Visit Focus/Plan Next Note Type Treatment Note Next Visit Plan Continue PT per POC for strengthening, transfers, balance and gait training
--- NOTE | 2022-03-08 16:48 | PT.OTN ---
Current Diagnoses Polyneuropathy, unspecified (03/08/22) Other abnormalities of gait and mobility (03/08/22) Repeated falls (03/08/22) Physical Therapy Treatment Note PT-OP-A Visit Information Start: 01/05/22 17:14 Freq: Status: Active Protocol: Document 03/08/22 12:58 SAK (Rec: 03/08/22 13:50 SAK [id number]) Out-Patient Physical Therapy Visit Information Visit Information Visit Type Treatment Note Visit Start Time 13:00 Visit Stop Time 13:45 Total Visit Minutes 45 Visit Number 11 Evaluation Information Evaluation Date 01/05/22 PT-OP-B Current Condition Start: 01/05/22 17:14 Freq: Status: Active Protocol: Document 01/05/22 16:00 DCW (Rec: 01/05/22 17:33 DCW [id number]) Current Condition History of Current Condition Onset Date Long-standing history Current Complaints LE neuropathy, poor balance, gait difficulty, falls History of Current Condition Pt is an 86 year old male presenting with a long- standing history of LE polyneuropathy. Pt notes a general muted sensation in his feet and ankles, and feels like his balance has been worsening, but is unsure if his difficulty comes from his actual neuropathy, or just his leg weakness, which he feels is the main issue. Pt notes that he had back surgery November of last year, the cleaned out between L4-5 and put some contraption in, and following therapy, was receiving therapy at a different clinic. Pt reports that both he and the therapist felt that he had reached a plateau, and they were not seeing much progress, however pt admits that since he stopped PT, he has lost a significant amount of LE strength and stability. Notes increased back pain when standing or walking longer than 15-20 minutes. Has had two recent falls, and another that was a few months ago. Admits that he doesn't really worry about his falls, because they have not yet resulted in an injury, but they seem to occur when he is in the bathroom and he just loses his balance. Uses a 4WW around his house, but finds it hard to get the walker into his car , so he keeps a FWW in the car for use when out. Notes that when he showers, he is unable to feel the water on his left foot because of his neuropathy . PT-OP-C Subjective Start: 01/05/22 17:14 Freq: Status: Active Protocol: Document 03/08/22 12:58 SAK (Rec: 03/08/22 13:50 SAK [id number]) OP-PT Subjective Patient Comments Patient Comments States frustrated by continued weakness and balance difficulty. Feels he has felt weaker since his back surgery , though back feels much better. C/o telly LE pain. States the doctors don't give him much hope for improvement, he feels unsure what to do. PT-OP-D Balance Start: 01/05/22 17:14 Freq: Status: Active Protocol: Document 01/05/22 16:00 DCW (Rec: 01/05/22 17:36 DCW [id number]) Balance Tests Ann Balance Test Ann Balance Test Score 10/56 Ann Impairment Rating 80 to 99% Impaired (Score 1-11 ) Ann Balance Assessment Evaluation Sitting to Standing Ability Independent w/Hands Unsupported Stance Unable w/out Assistance Sitting Unsupported, Feet on Floor Safely- 2 minutes Standing to Sitting Ability Independent, Uncontrolled Transfer Ability Supervision, Verbal Cues Unsupported Stance- Eyes Closed Falls Without Assistance Unsupported Stance- Eyes Open Assist to attain,<15 secs Reaching Forward Standing Supported, Looses Balance Pick- Up Object From Floor Requires Assistance Look Behind Shoulder - Standing Assist to Prevent Fall Turning 360 Degrees Requires Assistance Unsupported Stance, Alternating Feet on Assist to Prevent Fall Stair Unsupported Tandem Stance Balance Lost- Step/Stand Unilateral Leg Stance Unable,assist to not fall Total Score Ann Total Score (out of 56 points) 10 Ann Impairment Rating 80 to 99% Impaired (Score 1-11 ) PT-OP-E Functional Tests Start: 01/05/22 17:14 Freq: Status: Active Protocol: Document 01/05/22 16:00 DCW (Rec: 01/05/22 17:36 DCW [id number]) Functional Tests Timed Up and Go (TUG) Score 21.14 /c FWW Comments 3-trial average: 22.19, 21.37 , 19.87 TUG Impairment Rating 100% Impaired (Score 20) PT-OP-G Mobility & Gait Start: 01/05/22 17:14 Freq: Status: Active Protocol: Document 01/05/22 16:00 DCW (Rec: 01/05/22 17:36 DCW [id number]) OP Gait Assessment Gait Gait Assistance Required: Standby Assistance Assistive Devices Assistive Device Gait Belt,Front Wheeled Walker Gait Deviations General Gait Pattern Decreased Stride Length, Decreased Feet Clearance, Flexed Trunk,Lateral Trunk Lean,Wide Based Gait Factors Limiting Gait Function Factors Limiting Gait Function Decreased Activity Tolerance, Decreased Sensation,Decreased Strength,Poor Balance PT-OP-M Strength Start: 01/05/22 17:36 Freq: Status: Active Protocol: Document 01/05/22 16:00 DCW (Rec: 01/05/22 17:38 DC [id number]) Hip Strength Hip Manual Muscle Testing Right Flexion (L2) 4- Good- Abduction 4- Good- Adduction 4 Good External Rotation 4 Good Internal Rotation 4 Good Left Flexion (L2) 4- Good- Abduction 4- Good- Adduction 4 Good External Rotation 4- Good- Internal Rotation 4- Good- Knee Strength Knee Manual Muscle Testing Right Flexion (S2) 4- Good- Extension (L3) 4+ Good+ Left Flexion (S2) 4- Good- Extension (L3) 4 Good Ankle/Foot Strength Ankle and Foot Manual Muscle Testing Right Dorsiflexion (L4) 3+ Fair+ Plantarflexion (S1) 3 Fair Left Dorsiflexion (L4) 3- Fair- Plantarflexion (S1) 3- Fair- PT-OP-Q Treatments Start: 01/05/22 17:14 Freq: Status: Active Protocol: Document 03/08/22 12:58 [facility] (Rec: 03/08/22 13:50 [facility] [id number]) Cardio Equipment Recumbent Elliptical (Biodex) Duration (Minutes) 8 Resistance 5 Seat Position 10 Therapeutic Exercises Sitting Exercises sit to stand Sitting Exercise Name work at reducing UE support Reps/Minutes 5x Comments fatigued, needs mod verbal and tactile cues for set up and performance Standing Exercises sidestepping Standing Exercise Name // bars Reps/Minutes 10'x4 mini squats Standing Exercise Name rail Reps/Minutes 2x10 Gait Training Gait Activity 2 min walk Device Used FWW Level of Assistance CGA Surface firm Distance/Duration 156 ft Treatment Focus walking endurance Comments c/o leg fatigue and pain walk parallel bars Device Used telly UE suport Level of Assistance CGA Distance/Duration 10'x2 Treatment Focus decreasing UE support as able Manual Therapy Treatment Manual Traction Lumbar Details gentle Body Position Hooklying Reps/Duration 2 min Comments no improvement in symptoms Neuro Re-Education Treatment Balance Activities rhythmic stabilization Details standing in // bars Reps/Duration 3 min Comments much difficulty with adapting to changing direction of pressure Foam stance Surface Blue foam Reps/Duration 3 min Comments mod UE support telly Self-Care/Home Management Treatment Education Other Education Consider 2nd opinion regarding prognosis. Consider aquatic PT as part of his treatment. PT-OP-T Assessment and Plan Start: 01/05/22 17:14 Freq: Status: Active Protocol: Document 03/08/22 12:58 [facility] (Rec: 03/08/22 13:50 [facility] [id number]) Physical Therapy Assessment Goals Three Impairment TUG score of 21.14 using a FWW Shelter Goal (LTG) Pt to decrease time taken to perform TUG while using a FWW to <16 seconds in order to demonstrate an improved gait speed. 02/28: 25.5 seconds LTG Duration 04/05/22 Two Impairment Pt shows significant falls risk with Ann score of 10/56 [employer] Goal (LTG) Pt to score at least 10 points higher on the Ann Balance scale with a score of 20/56 in order to demonstrate a decreased falls risk. 02/28: 56 LTG Duration 04/05/22 One Impairment Pt does not have an appropriate home exercise program Short Term Goal (STG) Pt to be independent and compliant with an appropriate HEP STG Duration 02/04/22 Assessment Summary Assessment 2 min walk test 156 ft. Patient fatigues quickly with gait, felt unable to attempt 6 min walk test. Poor balance reactions. Patient expressing frustration with continued limitations and no guidance from physicans. He remains at high risk for falls at this time. Fair compliance to HEP. Physical Therapy Plan Frequency and Duration Frequency of Treatment 2x/Week Duration of Treatment 90 days Plan of Care Start Date 01/05/22 Plan of Care End Date 04/05/22 Therapeutic Interventions Therapeutic Interventions Aquatic Therapy,Balance Training,Gait Training,Home Exercise Program,Manual Therapy,Neuromuscular Re- education,Patient/Caregiver Education,Self-Care/Home Management,Soft Tissue Mobilization,Therapeutic Activities,Therapeutic Exercises Next Visit Focus/Plan Next Note Type Treatment Note Next Visit Plan Continue PT per POC for strengthening, transfers, balance, gait training.
--- NOTE | 2022-03-10 17:16 | PT.OTN ---
Current Diagnoses Polyneuropathy, unspecified (03/10/22) Other abnormalities of gait and mobility (03/10/22) Repeated falls (03/10/22) Physical Therapy Treatment Note PT-OP-A Visit Information Start: 01/05/22 17:14 Freq: Status: Active Protocol: Document 03/10/22 13:00 SAK (Rec: 03/10/22 13:46 SAK [id number]) Out-Patient Physical Therapy Visit Information Visit Information Visit Type Treatment Note Visit Start Time 13:00 Visit Stop Time 13:45 Total Visit Minutes 45 Visit Number 12 Evaluation Information Evaluation Date 01/05/22 PT-OP-B Current Condition Start: 01/05/22 17:14 Freq: Status: Active Protocol: Document 01/05/22 16:00 DCW (Rec: 01/05/22 17:33 DCW [id number]) Current Condition History of Current Condition Onset Date Long-standing history Current Complaints LE neuropathy, poor balance, gait difficulty, falls History of Current Condition Pt is an 86 year old male presenting with a long- standing history of LE polyneuropathy. Pt notes a general muted sensation in his feet and ankles, and feels like his balance has been worsening, but is unsure if his difficulty comes from his actual neuropathy, or just his leg weakness, which he feels is the main issue. Pt notes that he had back surgery November of last year, the cleaned out between L4-5 and put some contraption in, and following therapy, was receiving therapy at a different clinic. Pt reports that both he and the therapist felt that he had reached a plateau, and they were not seeing much progress, however pt admits that since he stopped PT, he has lost a significant amount of LE strength and stability. Notes increased back pain when standing or walking longer than 15-20 minutes. Has had two recent falls, and another that was a few months ago. Admits that he doesn't really worry about his falls, because they have not yet resulted in an injury, but they seem to occur when he is in the bathroom and he just loses his balance. Uses a 4WW around his house, but finds it hard to get the walker into his car , so he keeps a FWW in the car for use when out. Notes that when he showers, he is unable to feel the water on his left foot because of his neuropathy . PT-OP-C Subjective Start: 01/05/22 17:14 Freq: Status: Active Protocol: Document 03/10/22 13:00 SAK (Rec: 03/10/22 13:46 SAK [id number]) OP-PT Subjective Patient Comments Patient Comments [place] weaker immediately after PT for short time, then resolved. PT-OP-D Balance Start: 01/05/22 17:14 Freq: Status: Active Protocol: Document 01/05/22 16:00 DCW (Rec: 01/05/22 17:36 DCW [id number]) Balance Tests Ann Balance Test Ann Balance Test Score 10/56 Ann Impairment Rating 80 to 99% Impaired (Score 1-11 ) Ann Balance Assessment Evaluation Sitting to Standing Ability Independent w/Hands Unsupported Stance Unable w/out Assistance Sitting Unsupported, Feet on Floor Safely- 2 minutes Standing to Sitting Ability Independent, Uncontrolled Transfer Ability Supervision, Verbal Cues Unsupported Stance- Eyes Closed Falls Without Assistance Unsupported Stance- Eyes Open Assist to attain,<15 secs Reaching Forward Standing Supported, Looses Balance Pick- Up Object From Floor Requires Assistance Look Behind Shoulder - Standing Assist to Prevent Fall Turning 360 Degrees Requires Assistance Unsupported Stance, Alternating Feet on Assist to Prevent Fall Stair Unsupported Tandem Stance Balance Lost- Step/Stand Unilateral Leg Stance Unable,assist to not fall Total Score Ann Total Score (out of 56 points) 10 Ann Impairment Rating 80 to 99% Impaired (Score 1-11 ) PT-OP-E Functional Tests Start: 01/05/22 17:14 Freq: Status: Active Protocol: Document 01/05/22 16:00 DCW (Rec: 01/05/22 17:36 DCW [id number]) Functional Tests Timed Up and Go (TUG) Score 21.14 /c FWW Comments 3-trial average: 22.19, 21.37 , 19.87 TUG Impairment Rating 100% Impaired (Score 20) PT-OP-G Mobility & Gait Start: 01/05/22 17:14 Freq: Status: Active Protocol: Document 01/05/22 16:00 DCW (Rec: 01/05/22 17:36 DCW [id number]) OP Gait Assessment Gait Gait Assistance Required: Standby Assistance Assistive Devices Assistive Device Gait Belt,Front Wheeled Walker Gait Deviations General Gait Pattern Decreased Stride Length, Decreased Feet Clearance, Flexed Trunk,Lateral Trunk Lean,Wide Based Gait Factors Limiting Gait Function Factors Limiting Gait Function Decreased Activity Tolerance, Decreased Sensation,Decreased Strength,Poor Balance PT-OP-M Strength Start: 01/05/22 17:36 Freq: Status: Active Protocol: Document 01/05/22 16:00 DCW (Rec: 01/05/22 17:38 DCW [id number]) Hip Strength Hip Manual Muscle Testing Right Flexion (L2) 4- Good- Abduction 4- Good- Adduction 4 Good External Rotation 4 Good Internal Rotation 4 Good Left Flexion (L2) 4- Good- Abduction 4- Good- Adduction 4 Good External Rotation 4- Good- Internal Rotation 4- Good- Knee Strength Knee Manual Muscle Testing Right Flexion (S2) 4- Good- Extension (L3) 4+ Good+ Left Flexion (S2) 4- Good- Extension (L3) 4 Good Ankle/Foot Strength Ankle and Foot Manual Muscle Testing Right Dorsiflexion (L4) 3+ Fair+ Plantarflexion (S1) 3 Fair Left Dorsiflexion (L4) 3- Fair- Plantarflexion (S1) 3- Fair- PT-OP-Q Treatments Start: 01/05/22 17:14 Freq: Status: Active Protocol: Document 03/10/22 13:00 SAK (Rec: 03/10/22 13:46 SAK [id number]) Cardio Equipment Recumbent Elliptical (Biodex) Duration (Minutes) 8 Resistance 5>4 Seat Position 10 Other UE's and LE's 4 min, LE's only (L4) 4 min Gym Equipment Shuttle Recovery Unilateral Squats Resistance 25# Reps/Time 10x2 Bilateral Squats Resistance 50# Shuttle Recovery Platform Stable Reps/Time 10x2 Therapeutic Exercises Sitting Exercises sit to stand Sitting Exercise Name focus on reducing UE support Reps/Minutes 5x Comments fatigued, needs mod verbal and tactile cues for set up and performance Ankle Flexion Sitting Exercise Name 4-way ankle flexion Side bilateral Resistance Lv 2 Reps/Minutes 10x ea Standing Exercises sidestepping Standing Exercise Name // bars Reps/Minutes 10'x4 Gait Training Gait Activity walk parallel bars Device Used telly UE suport Level of Assistance CGA Distance/Duration 10'x2 Treatment Focus decreasing UE support as able Neuro Re-Education Treatment Balance Activities seated on dynadisc Details feet shoulder width Reps/Duration 6 min Comments EO, EC, balloon volleyball, LAQ PT-OP-T Assessment and Plan Start: 01/05/22 17:14 Freq: Status: Active Protocol: Document 03/10/22 13:00 MICHELL (Rec: 03/10/22 13:46 SAK [id number]) Physical Therapy Assessment Goals Three Impairment TUG score of 21.14 using a FWW Senior Care Goal (LTG) Pt to decrease time taken to perform TUG while using a FWW to <16 seconds in order to demonstrate an improved gait speed. 02/28: 25.5 seconds LTG Duration 04/05/22 Two Impairment Pt shows significant falls risk with Ann score of 10/56 Chief Information Security Officer Goal (LTG) Pt to score at least 10 points higher on the Ann Balance scale with a score of 20/56 in order to demonstrate a decreased falls risk. 02/28: LTG Duration 04/05/22 One Impairment Pt does not have an appropriate home exercise program Short Term Goal (STG) Pt to be independent and compliant with an appropriate HEP STG Duration 02/04/22 Assessment Summary Assessment Good static balance reactions seated on Dynadisc, frequent LOB dynamic with balloon volleyball but frequently able to catch balance without use of hands vs in standing where use of hands required constantly. Progressed to 2 sets of 10 with shuttle recovery. Scheduled 2 visits for trial of aquatic therapy after discussing benefits and patient receptive. Physical Therapy Plan Frequency and Duration Frequency of Treatment 2x/Week Duration of Treatment 90 days Plan of Care Start Date 01/05/22 Plan of Care End Date 04/05/22 Therapeutic Interventions Therapeutic Interventions Aquatic Therapy,Balance Training,Gait Training,Home Exercise Program,Manual Therapy,Neuromuscular Re- education,Patient/Caregiver Education,Self-Care/Home Management,Soft Tissue Mobilization,Therapeutic Activities,Therapeutic Exercises Next Visit Focus/Plan Next Note Type Treatment Note Next Visit Plan Continue PT per POC for strengthening, transfers, balance, gait training.
--- NOTE | 2022-03-14 16:46 | PT.OTN ---
Current Diagnoses Polyneuropathy, unspecified (03/14/22) Other abnormalities of gait and mobility (03/14/22) Repeated falls (03/14/22) Physical Therapy Treatment Note PT-OP-A Visit Information Start: 01/05/22 17:14 Freq: Status: Active Protocol: Document 03/14/22 16:00 DCW (Rec: 03/14/22 16:46 DCW [id number]) Out-Patient Physical Therapy Visit Information Visit Information Visit Type Treatment Note Visit Start Time 16:00 Visit Stop Time 16:45 Total Visit Minutes 45 Visit Number 13 Number of GLOBAL ACCOUNT MANAGER Visits 0 Evaluation Information Evaluation Date 01/05/22 PT-OP-B Current Condition Start: 01/05/22 17:14 Freq: Status: Active Protocol: Document 01/05/22 16:00 DCW (Rec: 01/05/22 17:33 DCW [id number]) Current Condition History of Current Condition Onset Date Long-standing history Current Complaints LE neuropathy, poor balance, gait difficulty, falls History of Current Condition Pt is an 86 year old male presenting with a long- standing history of LE polyneuropathy. Pt notes a general muted sensation in his feet and ankles, and feels like his balance has been worsening, but is unsure if his difficulty comes from his actual neuropathy, or just his leg weakness, which he feels is the main issue. Pt notes that he had back surgery November of last year, the cleaned out between L4-5 and put some contraption in, and following therapy, was receiving therapy at a different clinic. Pt reports that both he and the therapist felt that he had reached a plateau, and they were not seeing much progress, however pt admits that since he stopped PT, he has lost a significant amount of LE strength and stability. Notes increased back pain when standing or walking longer than 15-20 minutes. Has had two recent falls, and another that was a few months ago. Admits that he doesn't really worry about his falls, because they have not yet resulted in an injury, but they seem to occur when he is in the bathroom and he just loses his balance. Uses a 4WW around his house, but finds it hard to get the walker into his car , so he keeps a FWW in the car for use when out. Notes that when he showers, he is unable to feel the water on his left foot because of his neuropathy . PT-OP-C Subjective Start: 01/05/22 17:14 Freq: Status: Active Protocol: Document 03/14/22 16:00 DCW (Rec: 03/14/22 16:46 DCW [id number]) OP-PT Subjective Patient Comments Patient Comments I'm feeling alright, I'm just not seeing much progress. I'm still feeling weak during the day, and more problematic is my balance. PT-OP-D Balance Start: 01/05/22 17:14 Freq: Status: Active Protocol: Document 01/05/22 16:00 DCW (Rec: 01/05/22 17:36 DCW [id number]) Balance Tests Ann Balance Test Ann Balance Test Score 10/56 Ann Impairment Rating 80 to 99% Impaired (Score 1-11 ) Ann Balance Assessment Evaluation Sitting to Standing Ability Independent w/Hands Unsupported Stance Unable w/out Assistance Sitting Unsupported, Feet on Floor Safely- 2 minutes Standing to Sitting Ability Independent, Uncontrolled Transfer Ability Supervision, Verbal Cues Unsupported Stance- Eyes Closed Falls Without Assistance Unsupported Stance- Eyes Open Assist to attain,<15 secs Reaching Forward Standing Supported, Looses Balance Pick- Up Object From Floor Requires Assistance Look Behind Shoulder - Standing Assist to Prevent Fall Turning 360 Degrees Requires Assistance Unsupported Stance, Alternating Feet on Assist to Prevent Fall Stair Unsupported Tandem Stance Balance Lost- Step/Stand Unilateral Leg Stance Unable,assist to not fall Total Score Ann Total Score (out of 56 points) 10 Ann Impairment Rating 80 to 99% Impaired (Score 1-11 ) PT-OP-E Functional Tests Start: 01/05/22 17:14 Freq: Status: Active Protocol: Document 01/05/22 16:00 DCW (Rec: 01/05/22 17:36 DC [id number]) Functional Tests Timed Up and Go (TUG) Score 21.14 /c FWW Comments 3-trial average: 22.19, 21.37 , 19.87 TUG Impairment Rating 100% Impaired (Score 20) PT-OP-G Mobility & Gait Start: 01/05/22 17:14 Freq: Status: Active Protocol: Document 01/05/22 16:00 DCW (Rec: 01/05/22 17:36 DCW [id number]) OP Gait Assessment Gait Gait Assistance Required: Standby Assistance Assistive Devices Assistive Device Gait Belt,Front Wheeled Walker Gait Deviations General Gait Pattern Decreased Stride Length, Decreased Feet Clearance, Flexed Trunk,Lateral Trunk Lean,Wide Based Gait Factors Limiting Gait Function Factors Limiting Gait Function Decreased Activity Tolerance, Decreased Sensation,Decreased Strength,Poor Balance PT-OP-M Strength Start: 01/05/22 17:36 Freq: Status: Active Protocol: Document 01/05/22 16:00 DCW (Rec: 01/05/22 17:38 DC [id number]) Hip Strength Hip Manual Muscle Testing Right Flexion (L2) 4- Good- Abduction 4- Good- Adduction 4 Good External Rotation 4 Good Internal Rotation 4 Good Left Flexion (L2) 4- Good- Abduction 4- Good- Adduction 4 Good External Rotation 4- Good- Internal Rotation 4- Good- Knee Strength Knee Manual Muscle Testing Right Flexion (S2) 4- Good- Extension (L3) 4+ Good+ Left Flexion (S2) 4- Good- Extension (L3) 4 Good Ankle/Foot Strength Ankle and Foot Manual Muscle Testing Right Dorsiflexion (L4) 3+ Fair+ Plantarflexion (S1) 3 Fair Left Dorsiflexion (L4) 3- Fair- Plantarflexion (S1) 3- Fair- PT-OP-Q Treatments Start: 01/05/22 17:14 Freq: Status: Active Protocol: Document 03/14/22 16:00 DCW (Rec: 03/14/22 16:46 DC [id number]) Cardio Equipment Recumbent Elliptical (Biodex) Duration (Minutes) 5 Resistance 5 Seat Position 9 Gym Equipment Shuttle Recovery Unilateral Squats Resistance 25# Reps/Time 10x2 Bilateral Squats Resistance 50# Shuttle Recovery Platform Stable Reps/Time 10x2 Therapeutic Exercises Sitting Exercises Seated crunches Sitting Exercise Name Crunches/Reverse Crunches Resistance Lv 3 T-band Ankle Flexion Sitting Exercise Name 4-way ankle flexion Side bilateral Resistance Lv 3 Reps/Minutes 10x ea Standing Exercises Hamstring Curls Standing Exercise Name HS curls Side bilateral Resistance 2# sidestepping Standing Exercise Name // bars Reps/Minutes 10'x4 partial forward lunge Standing Exercise Name rail Reps/Minutes x10 each mini squats Standing Exercise Name rail Reps/Minutes x10 Therapeutic Activity Therapeutic Activity Sit<->Stand Name Sit<->Stand Comments Cures for positioning, posture , hip hinge Neuro Re-Education Treatment Balance Activities tap ups Details 6 step // bars Equipment 2# Reps/Duration 2x10 PT-OP-T Assessment and Plan Start: 01/05/22 17:14 Freq: Status: Active Protocol: Document 03/14/22 16:00 DCW (Rec: 03/14/22 16:46 DCW [id number]) Physical Therapy Assessment Goals Three Impairment TUG score of 21.14 using a FWW President And Chief Operating Officer Goal (LTG) Pt to decrease time taken to perform TUG while using a FWW to <16 seconds in order to demonstrate an improved gait speed. 02/28: 25.5 seconds LTG Duration 04/05/22 Two Impairment Pt shows significant falls risk with Ann score of 10/56 [facility] Goal (LTG) Pt to score at least 10 points higher on the Ann Balance scale with a score of 20/56 in order to demonstrate a decreased falls risk. 02/28: 13 /56 LTG Duration 04/05/22 One Impairment Pt does not have an appropriate home exercise program Short Term Goal (STG) Pt to be independent and compliant with an appropriate HEP STG Duration 02/04/22 Assessment Summary Assessment Pt tired in a good way after session today, clearly very fatigued by end of session. Pt required fewer rest breaks than he used to, showing some improvement in activity tolerance. Physical Therapy Plan Frequency and Duration Frequency of Treatment 2x/Week Duration of Treatment 90 days Plan of Care Start Date 01/05/22 Plan of Care End Date 04/05/22 Therapeutic Interventions Therapeutic Interventions Aquatic Therapy,Balance Training,Gait Training,Home Exercise Program,Manual Therapy,Neuromuscular Re- education,Patient/Caregiver Education,Self-Care/Home Management,Soft Tissue Mobilization,Therapeutic Activities,Therapeutic Exercises Next Visit Focus/Plan Next Note Type Treatment Note Next Visit Plan Continue PT per POC for strengthening, transfers, balance, gait training.
--- NOTE | 2022-03-18 15:55 | PT.OTN ---
Current Diagnoses Polyneuropathy, unspecified (03/18/22) Other abnormalities of gait and mobility (03/18/22) Repeated falls (03/18/22) Physical Therapy Treatment Note PT-OP-A Visit Information Start: 01/05/22 17:14 Freq: Status: Active Protocol: Document 03/18/22 15:15 DCW (Rec: 03/18/22 15:55 DCW [id number]) Out-Patient Physical Therapy Visit Information Visit Information Visit Type Treatment Note Visit Start Time 15:15 Visit Stop Time 16:00 Total Visit Minutes 45 Visit Number 14 Number of FIELD PARTY MANAGER Visits 0 Evaluation Information Evaluation Date 01/05/22 PT-OP-B Current Condition Start: 01/05/22 17:14 Freq: Status: Active Protocol: Document 01/05/22 16:00 DCW (Rec: 01/05/22 17:33 DCW [id number]) Current Condition History of Current Condition Onset Date Long-standing history Current Complaints LE neuropathy, poor balance, gait difficulty, falls History of Current Condition Pt is an 86 year old male presenting with a long- standing history of LE polyneuropathy. Pt notes a general muted sensation in his feet and ankles, and feels like his balance has been worsening, but is unsure if his difficulty comes from his actual neuropathy, or just his leg weakness, which he feels is the main issue. Pt notes that he had back surgery November of last year, the cleaned out between L4-5 and put some contraption in, and following therapy, was receiving therapy at a different clinic. Pt reports that both he and the therapist felt that he had reached a plateau, and they were not seeing much progress, however pt admits that since he stopped PT, he has lost a significant amount of LE strength and stability. Notes increased back pain when standing or walking longer than 15-20 minutes. Has had two recent falls, and another that was a few months ago. Admits that he doesn't really worry about his falls, because they have not yet resulted in an injury, but they seem to occur when he is in the bathroom and he just loses his balance. Uses a 4WW around his house, but finds it hard to get the walker into his car , so he keeps a FWW in the car for use when out. Notes that when he showers, he is unable to feel the water on his left foot because of his neuropathy . PT-OP-C Subjective Start: 01/05/22 17:14 Freq: Status: Active Protocol: Document 03/18/22 15:15 DCW (Rec: 03/18/22 15:55 DCW [id number]) OP-PT Subjective Patient Comments Patient Comments Pt reports he's doing fairly well today. PT-OP-D Balance Start: 01/05/22 17:14 Freq: Status: Active Protocol: Document 01/05/22 16:00 DCW (Rec: 01/05/22 17:36 DCW [id number]) Balance Tests Ann Balance Test Ann Balance Test Score 10/56 Ann Impairment Rating 80 to 99% Impaired (Score 1-11 ) Ann Balance Assessment Evaluation Sitting to Standing Ability Independent w/Hands Unsupported Stance Unable w/out Assistance Sitting Unsupported, Feet on Floor Safely- 2 minutes Standing to Sitting Ability Independent, Uncontrolled Transfer Ability Supervision, Verbal Cues Unsupported Stance- Eyes Closed Falls Without Assistance Unsupported Stance- Eyes Open Assist to attain,<15 secs Reaching Forward Standing Supported, Looses Balance Pick- Up Object From Floor Requires Assistance Look Behind Shoulder - Standing Assist to Prevent Fall Turning 360 Degrees Requires Assistance Unsupported Stance, Alternating Feet on Assist to Prevent Fall Stair Unsupported Tandem Stance Balance Lost- Step/Stand Unilateral Leg Stance Unable,assist to not fall Total Score Ann Total Score (out of 56 points) 10 Ann Impairment Rating 80 to 99% Impaired (Score 1-11 ) PT-OP-E Functional Tests Start: 01/05/22 17:14 Freq: Status: Active Protocol: Document 01/05/22 16:00 DCW (Rec: 01/05/22 17:36 DCW [id number]) Functional Tests Timed Up and Go (TUG) Score 21.14 /c FWW Comments 3-trial average: 22.19, 21.37 , 19.87 TUG Impairment Rating 100% Impaired (Score 20) PT-OP-G Mobility & Gait Start: 01/05/22 17:14 Freq: Status: Active Protocol: Document 01/05/22 16:00 DCW (Rec: 01/05/22 17:36 DCW [id number]) OP Gait Assessment Gait Gait Assistance Required: Standby Assistance Assistive Devices Assistive Device Gait Belt,Front Wheeled Walker Gait Deviations General Gait Pattern Decreased Stride Length, Decreased Feet Clearance, Flexed Trunk,Lateral Trunk Lean,Wide Based Gait Factors Limiting Gait Function Factors Limiting Gait Function Decreased Activity Tolerance, Decreased Sensation,Decreased Strength,Poor Balance PT-OP-M Strength Start: 01/05/22 17:36 Freq: Status: Active Protocol: Document 01/05/22 16:00 DCW (Rec: 01/05/22 17:38 DCW [id number]) Hip Strength Hip Manual Muscle Testing Right Flexion (L2) 4- Good- Abduction 4- Good- Adduction 4 Good External Rotation 4 Good Internal Rotation 4 Good Left Flexion (L2) 4- Good- Abduction 4- Good- Adduction 4 Good External Rotation 4- Good- Internal Rotation 4- Good- Knee Strength Knee Manual Muscle Testing Right Flexion (S2) 4- Good- Extension (L3) 4+ Good+ Left Flexion (S2) 4- Good- Extension (L3) 4 Good Ankle/Foot Strength Ankle and Foot Manual Muscle Testing Right Dorsiflexion (L4) 3+ Fair+ Plantarflexion (S1) 3 Fair Left Dorsiflexion (L4) 3- Fair- Plantarflexion (S1) 3- Fair- PT-OP-Q Treatments Start: 01/05/22 17:14 Freq: Status: Active Protocol: Document 03/18/22 15:15 DCW (Rec: 03/18/22 15:55 DCW [id number]) Cardio Equipment Recumbent Elliptical (Biodex) Duration (Minutes) 5 Resistance 5 Seat Position 11 Gym Equipment Shuttle Recovery Unilateral Squats Resistance 25# Reps/Time 10x2 Bilateral Squats Resistance 50# Shuttle Recovery Platform Stable Reps/Time 10x2 Therapeutic Exercises Sitting Exercises Seated crunches Sitting Exercise Name Crunches/Reverse Crunches Resistance Lv 3 T-band LAQ Sitting Exercise Name LAQ Side bilateral Resistance 4# Ankle Flexion Sitting Exercise Name 4-way ankle flexion Side bilateral Resistance Lv 3 Reps/Minutes 10x ea Standing Exercises Hamstring Curls Standing Exercise Name HS curls Side bilateral Resistance 4# sidestepping Standing Exercise Name // bars Reps/Minutes 20'x4 partial forward lunge Standing Exercise Name rail Reps/Minutes x10 each mini squats Standing Exercise Name rail Reps/Minutes x10 PT-OP-T Assessment and Plan Start: 01/05/22 17:14 Freq: Status: Active Protocol: Document 03/18/22 15:15 DCW (Rec: 03/18/22 15:55 DCW [id number]) Physical Therapy Assessment Impairments Impairments Activity Tolerance,Balance, Functional Activities, Functional Mobility,Gait, Posture,Strength,Tone, Transfers Goals Three Impairment TUG score of 21.14 using a FWW Half-Way Goal (LTG) Pt to decrease time taken to perform TUG while using a FWW to <16 seconds in order to demonstrate an improved gait speed. 02/28: 25.5 seconds LTG Duration 04/05/22 Two Impairment Pt shows significant falls risk with Ann score of 10/56 Bar Tacker Goal (LTG) Pt to score at least 10 points higher on the Ann Balance scale with a score of 20/56 in order to demonstrate a decreased falls risk. 02/28: 13 /56 LTG Duration 04/05/22 One Impairment Pt does not have an appropriate home exercise program Short Term Goal (STG) Pt to be independent and compliant with an appropriate HEP STG Duration 02/04/22 Assessment Summary Assessment Pt once again very fatigued with activity, required multiple rest breaks. Still making good effort with activities. Physical Therapy Plan Frequency and Duration Frequency of Treatment 2x/Week Duration of Treatment 90 days Plan of Care Start Date 01/05/22 Plan of Care End Date 04/05/22 Therapeutic Interventions Therapeutic Interventions Aquatic Therapy,Balance Training,Gait Training,Home Exercise Program,Manual Therapy,Neuromuscular Re- education,Patient/Caregiver Education,Self-Care/Home Management,Soft Tissue Mobilization,Therapeutic Activities,Therapeutic Exercises Next Visit Focus/Plan Next Note Type Treatment Note Next Visit Plan Continue PT per POC for strengthening, transfers, balance, gait training.
--- NOTE | 2022-03-22 15:15 | PT.OTN ---
Current Diagnoses Polyneuropathy, unspecified (03/22/22) Other abnormalities of gait and mobility (03/22/22) Repeated falls (03/22/22) Physical Therapy Treatment Note PT-OP-A Visit Information Start: 01/05/22 17:14 Freq: Status: Active Protocol: Document 03/22/22 14:30 DCW (Rec: 03/22/22 15:15 DCW [id number]) Out-Patient Physical Therapy Visit Information Visit Information Visit Type Treatment Note Visit Start Time 14:30 Visit Stop Time 15:15 Total Visit Minutes 45 Visit Number 15 Number of APARTMENT MAINTENANCE TECHNICIAN Visits 0 Evaluation Information Evaluation Date 01/05/22 PT-OP-B Current Condition Start: 01/05/22 17:14 Freq: Status: Active Protocol: Document 01/05/22 16:00 DCW (Rec: 01/05/22 17:33 DCW [id number]) Current Condition History of Current Condition Onset Date Long-standing history Current Complaints LE neuropathy, poor balance, gait difficulty, falls History of Current Condition Pt is an 86 year old male presenting with a long- standing history of LE polyneuropathy. Pt notes a general muted sensation in his feet and ankles, and feels like his balance has been worsening, but is unsure if his difficulty comes from his actual neuropathy, or just his leg weakness, which he feels is the main issue. Pt notes that he had back surgery November of last year, the cleaned out between L4-5 and put some contraption in, and following therapy, was receiving therapy at a different clinic. Pt reports that both he and the therapist felt that he had reached a plateau, and they were not seeing much progress, however pt admits that since he stopped PT, he has lost a significant amount of LE strength and stability. Notes increased back pain when standing or walking longer than 15-20 minutes. Has had two recent falls, and another that was a few months ago. Admits that he doesn't really worry about his falls, because they have not yet resulted in an injury, but they seem to occur when he is in the bathroom and he just loses his balance. Uses a 4WW around his house, but finds it hard to get the walker into his car , so he keeps a FWW in the car for use when out. Notes that when he showers, he is unable to feel the water on his left foot because of his neuropathy . PT-OP-C Subjective Start: 01/05/22 17:14 Freq: Status: Active Protocol: Document 03/22/22 14:30 DCW (Rec: 03/22/22 15:15 DCW [id number]) OP-PT Subjective Patient Comments Patient Comments I feel like my legs are a bit stronger, but my balance doesn't seem to be getting any better. PT-OP-D Balance Start: 01/05/22 17:14 Freq: Status: Active Protocol: Document 01/05/22 16:00 DCW (Rec: 01/05/22 17:36 DCW [id number]) Balance Tests Ann Balance Test Ann Balance Test Score 10/56 Ann Impairment Rating 80 to 99% Impaired (Score 1-11 ) Ann Balance Assessment Evaluation Sitting to Standing Ability Independent w/Hands Unsupported Stance Unable w/out Assistance Sitting Unsupported, Feet on Floor Safely- 2 minutes Standing to Sitting Ability Independent, Uncontrolled Transfer Ability Supervision, Verbal Cues Unsupported Stance- Eyes Closed Falls Without Assistance Unsupported Stance- Eyes Open Assist to attain,<15 secs Reaching Forward Standing Supported, Looses Balance Pick- Up Object From Floor Requires Assistance Look Behind Shoulder - Standing Assist to Prevent Fall Turning 360 Degrees Requires Assistance Unsupported Stance, Alternating Feet on Assist to Prevent Fall Stair Unsupported Tandem Stance Balance Lost- Step/Stand Unilateral Leg Stance Unable,assist to not fall Total Score Ann Total Score (out of 56 points) 10 Ann Impairment Rating 80 to 99% Impaired (Score 1-11 ) PT-OP-E Functional Tests Start: 01/05/22 17:14 Freq: Status: Active Protocol: Document 01/05/22 16:00 DCW (Rec: 01/05/22 17:36 DCW [id number]) Functional Tests Timed Up and Go (TUG) Score 21.14 /c FWW Comments 3-trial average: 22.19, 21.37 , 19.87 TUG Impairment Rating 100% Impaired (Score 20) PT-OP-G Mobility & Gait Start: 01/05/22 17:14 Freq: Status: Active Protocol: Document 01/05/22 16:00 DCW (Rec: 01/05/22 17:36 DCW [id number]) OP Gait Assessment Gait Gait Assistance Required: Standby Assistance Assistive Devices Assistive Device Gait Belt,Front Wheeled Walker Gait Deviations General Gait Pattern Decreased Stride Length, Decreased Feet Clearance, Flexed Trunk,Lateral Trunk Lean,Wide Based Gait Factors Limiting Gait Function Factors Limiting Gait Function Decreased Activity Tolerance, Decreased Sensation,Decreased Strength,Poor Balance PT-OP-M Strength Start: 01/05/22 17:36 Freq: Status: Active Protocol: Document 01/05/22 16:00 DCW (Rec: 01/05/22 17:38 DCW [id number]) Hip Strength Hip Manual Muscle Testing Right Flexion (L2) 4- Good- Abduction 4- Good- Adduction 4 Good External Rotation 4 Good Internal Rotation 4 Good Left Flexion (L2) 4- Good- Abduction 4- Good- Adduction 4 Good External Rotation 4- Good- Internal Rotation 4- Good- Knee Strength Knee Manual Muscle Testing Right Flexion (S2) 4- Good- Extension (L3) 4+ Good+ Left Flexion (S2) 4- Good- Extension (L3) 4 Good Ankle/Foot Strength Ankle and Foot Manual Muscle Testing Right Dorsiflexion (L4) 3+ Fair+ Plantarflexion (S1) 3 Fair Left Dorsiflexion (L4) 3- Fair- Plantarflexion (S1) 3- Fair- PT-OP-Q Treatments Start: 01/05/22 17:14 Freq: Status: Active Protocol: Document 03/22/22 14:30 DCW (Rec: 03/22/22 15:15 DCW [id number]) Cardio Equipment Recumbent Elliptical (Biodex) Duration (Minutes) 5 Resistance 5 Seat Position 10 Gym Equipment Shuttle Recovery Unilateral Squats Resistance 37# Reps/Time 10x2 Bilateral Squats Resistance 50# Shuttle Recovery Platform Stable Reps/Time 10x2 Neuro Re-Education Treatment Balance Activities WBOS Equipment // bars Comments WBOS, nudge, EO/EC Tilt board Details Tilt board A/P, Lateral Comments Able to spend 5-10 seconds at a time without UE support SLS Details SLS Equipment // bars Tandem Stance Details Tandem stance Equipment // bars Hurdles Details Hurdles Equipment // bars Comments UE support, Fwd and lateral 3 times ea Foam stance Surface Blue foam Reps/Duration 3 min Comments Occasional UE support PT-OP-T Assessment and Plan Start: 01/05/22 17:14 Freq: Status: Active Protocol: Document 03/22/22 14:30 DCW (Rec: 08/23/22 15:15 DCW [id number]) Physical Therapy Assessment Impairments Impairments Activity Tolerance,Balance, Functional Activities, Functional Mobility,Gait, Posture,Strength,Tone, Transfers Goals Three Impairment TUG score of 21.14 using a FWW [facility] Goal (LTG) Pt to decrease time taken to perform TUG while using a FWW to <16 seconds in order to demonstrate an improved gait speed. 02/28: 25.5 seconds LTG Duration 04/05/22 Two Impairment Pt shows significant falls risk with Ann score of 10/56 [facility] Goal (LTG) Pt to score at least 10 points higher on the Ann Balance scale with a score of 20/56 in order to demonstrate a decreased falls risk. 02/28: 13 /56 LTG Duration 04/05/22 One Impairment Pt does not have an appropriate home exercise program Short Term Goal (STG) Pt to be independent and compliant with an appropriate HEP STG Duration 02/04/22 Assessment Summary Assessment Pt showing some improvement with balance today, able to perform most activities with less UE assistance and tolerates longer without a rest break. Physical Therapy Plan Frequency and Duration Frequency of Treatment 2x/Week Duration of Treatment 90 days Plan of Care Start Date 01/05/22 Plan of Care End Date 04/05/22 Therapeutic Interventions Therapeutic Interventions Aquatic Therapy,Balance Training,Gait Training,Home Exercise Program,Manual Therapy,Neuromuscular Re- education,Patient/Caregiver Education,Self-Care/Home Management,Soft Tissue Mobilization,Therapeutic Activities,Therapeutic Exercises Next Visit Focus/Plan Next Note Type Treatment Note Next Visit Plan Continue PT per POC for strengthening, transfers, balance, gait training.
--- NOTE | 2022-03-25 12:02 | PT.OTN ---
Current Diagnoses Polyneuropathy, unspecified (03/25/22) Other abnormalities of gait and mobility (03/25/22) Repeated falls (03/25/22) Physical Therapy Treatment Note PT-OP-A Visit Information Start: 01/05/22 17:14 Freq: Status: Active Protocol: Document 03/25/22 11:17 DCW (Rec: 03/25/22 12:02 DCW [id number]) Out-Patient Physical Therapy Visit Information Visit Information Visit Type Treatment Note Visit Start Time 11:17 Visit Stop Time 12:00 Total Visit Minutes 43 Visit Number 16 Number of DIAGNOSTIC SALES SPECIALIST Visits 0 Evaluation Information Evaluation Date 01/05/22 PT-OP-B Current Condition Start: 01/05/22 17:14 Freq: Status: Active Protocol: Document 01/05/22 16:00 DCW (Rec: 01/05/22 17:33 DCW [id number]) Current Condition History of Current Condition Onset Date Long-standing history Current Complaints LE neuropathy, poor balance, gait difficulty, falls History of Current Condition Pt is an 86 year old male presenting with a long- standing history of LE polyneuropathy. Pt notes a general muted sensation in his feet and ankles, and feels like his balance has been worsening, but is unsure if his difficulty comes from his actual neuropathy, or just his leg weakness, which he feels is the main issue. Pt notes that he had back surgery November of last year, the cleaned out between L4-5 and put some contraption in, and following therapy, was receiving therapy at a different clinic. Pt reports that both he and the therapist felt that he had reached a plateau, and they were not seeing much progress, however pt admits that since he stopped PT, he has lost a significant amount of LE strength and stability. Notes increased back pain when standing or walking longer than 15-20 minutes. Has had two recent falls, and another that was a few months ago. Admits that he doesn't really worry about his falls, because they have not yet resulted in an injury, but they seem to occur when he is in the bathroom and he just loses his balance. Uses a 4WW around his house, but finds it hard to get the walker into his car , so he keeps a FWW in the car for use when out. Notes that when he showers, he is unable to feel the water on his left foot because of his neuropathy . PT-OP-C Subjective Start: 01/05/22 17:14 Freq: Status: Active Protocol: Document 03/25/22 11:17 DCW (Rec: 03/25/22 12:02 DCW [id number]) OP-PT Subjective Patient Comments Patient Comments Pt feeling alright today, still notes leg weakness, notes they hurt when he is sitting around for too long. PT-OP-D Balance Start: 01/05/22 17:14 Freq: Status: Active Protocol: Document 01/05/22 16:00 DCW (Rec: 01/05/22 17:36 DC [id number]) Balance Tests Ann Balance Test Ann Balance Test Score 10/56 Ann Impairment Rating 80 to 99% Impaired (Score 1-11 ) Ann Balance Assessment Evaluation Sitting to Standing Ability Independent w/Hands Unsupported Stance Unable w/out Assistance Sitting Unsupported, Feet on Floor Safely- 2 minutes Standing to Sitting Ability Independent, Uncontrolled Transfer Ability Supervision, Verbal Cues Unsupported Stance- Eyes Closed Falls Without Assistance Unsupported Stance- Eyes Open Assist to attain,<15 secs Reaching Forward Standing Supported, Looses Balance Pick- Up Object From Floor Requires Assistance Look Behind Shoulder - Standing Assist to Prevent Fall Turning 360 Degrees Requires Assistance Unsupported Stance, Alternating Feet on Assist to Prevent Fall Stair Unsupported Tandem Stance Balance Lost- Step/Stand Unilateral Leg Stance Unable,assist to not fall Total Score Ann Total Score (out of 56 points) 10 Ann Impairment Rating 80 to 99% Impaired (Score 1-11 ) PT-OP-E Functional Tests Start: 01/05/22 17:14 Freq: Status: Active Protocol: Document 01/05/22 16:00 DCW (Rec: 01/05/22 17:36 [facility] [id number]) Functional Tests Timed Up and Go (TUG) Score 21.14 /c FWW Comments 3-trial average: 22.19, 21.37 , 19.87 TUG Impairment Rating 100% Impaired (Score 20) PT-OP-G Mobility & Gait Start: 01/05/22 17:14 Freq: Status: Active Protocol: Document 01/05/22 16:00 DCW (Rec: 01/05/22 17:36 [facility] [id number]) OP Gait Assessment Gait Gait Assistance Required: Standby Assistance Assistive Devices Assistive Device Gait Belt,Front Wheeled Walker Gait Deviations General Gait Pattern Decreased Stride Length, Decreased Feet Clearance, Flexed Trunk,Lateral Trunk Lean,Wide Based Gait Factors Limiting Gait Function Factors Limiting Gait Function Decreased Activity Tolerance, Decreased Sensation,Decreased Strength,Poor Balance PT-OP-M Strength Start: 01/05/22 17:36 Freq: Status: Active Protocol: Document 01/05/22 16:00 DCW (Rec: 01/05/22 17:38 DCW [id number]) Hip Strength Hip Manual Muscle Testing Right Flexion (L2) 4- Good- Abduction 4- Good- Adduction 4 Good External Rotation 4 Good Internal Rotation 4 Good Left Flexion (L2) 4- Good- Abduction 4- Good- Adduction 4 Good External Rotation 4- Good- Internal Rotation 4- Good- Knee Strength Knee Manual Muscle Testing Right Flexion (S2) 4- Good- Extension (L3) 4+ Good+ Left Flexion (S2) 4- Good- Extension (L3) 4 Good Ankle/Foot Strength Ankle and Foot Manual Muscle Testing Right Dorsiflexion (L4) 3+ Fair+ Plantarflexion (S1) 3 Fair Left Dorsiflexion (L4) 3- Fair- Plantarflexion (S1) 3- Fair- PT-OP-Q Treatments Start: 01/05/22 17:14 Freq: Status: Active Protocol: Document 03/25/22 11:17 DCW (Rec: 03/25/22 12:02 DCW [id number]) Cardio Equipment Recumbent Elliptical (Biodex) Duration (Minutes) 5 Resistance 5 Seat Position 9 Gym Equipment Shuttle Recovery Unilateral Squats Resistance 37# Reps/Time 10x2 Bilateral Squats Resistance 50# Shuttle Recovery Platform Stable Reps/Time 10x2 Neuro Re-Education Treatment Balance Activities Tandem Stance Details Tandem stance Equipment // bars Hurdles Details Hurdles Equipment // bars Comments UE support, Fwd and lateral 3 times ea NBOS Details NBOS Surface Firm Equipment @ rail Comments working on looking forward rather than at feet, posture Foam stance Surface [place] foam Reps/Duration 3 min Comments Occasional UE support, EO/EC PT-OP-T Assessment and Plan Start: 01/05/22 17:14 Freq: Status: Active Protocol: Document 03/25/22 11:17 DCW (Rec: 03/25/22 12:02 DCW [id number]) Physical Therapy Assessment Impairments Impairments Activity Tolerance,Balance, Functional Activities, Functional Mobility,Gait, Posture,Strength,Tone, Transfers Goals Three Impairment TUG score of 21.14 using a FWW Suction Plate Roller Hand Goal (LTG) Pt to decrease time taken to perform TUG while using a FWW to <16 seconds in order to demonstrate an improved gait speed. 02/28: 25.5 seconds LTG Duration 04/05/22 Two Impairment Pt shows significant falls risk with Ann score of 10/56 [facility] Goal (LTG) Pt to score at least 10 points higher on the Ann Balance scale with a score of 20/56 in order to demonstrate a decreased falls risk. 02/28: 13 /56 LTG Duration 04/05/22 One Impairment Pt does not have an appropriate home exercise program Short Term Goal (STG) Pt to be independent and compliant with an appropriate HEP STG Duration 02/04/22 Assessment Summary Assessment Pt completely fatigued by end of session today, requested a few rest breaks in the middle of his exercises today. Worked more on balance today vs strengthening. Physical Therapy Plan Frequency and Duration Frequency of Treatment 2x/Week Duration of Treatment 90 days Plan of Care Start Date 01/05/22 Plan of Care End Date 04/05/22 Therapeutic Interventions Therapeutic Interventions Aquatic Therapy,Balance Training,Gait Training,Home Exercise Program,Manual Therapy,Neuromuscular Re- education,Patient/Caregiver Education,Self-Care/Home Management,Soft Tissue Mobilization,Therapeutic Activities,Therapeutic Exercises Next Visit Focus/Plan Next Note Type Treatment Note Next Visit Plan Continue PT per POC for strengthening, transfers, balance, gait training.
--- NOTE | 2022-03-29 15:56 | PT.OTN ---
Current Diagnoses Polyneuropathy, unspecified (03/29/22) Other abnormalities of gait and mobility (03/29/22) Repeated falls (03/29/22) Physical Therapy Treatment Note PT-OP-A Visit Information Start: 01/05/22 17:14 Freq: Status: Active Protocol: Document 03/29/22 15:15 DCW (Rec: 03/29/22 15:55 DCW [id number]) Out-Patient Physical Therapy Visit Information Visit Information Visit Type Treatment Note Visit Start Time 15:15 Visit Stop Time 16:00 Total Visit Minutes 45 Visit Number 17 Number of STRIPPING SHOVEL OILER Visits 0 Evaluation Information Evaluation Date 01/05/22 PT-OP-B Current Condition Start: 01/05/22 17:14 Freq: Status: Active Protocol: Document 01/05/22 16:00 DCW (Rec: 01/05/22 17:33 DCW [id number]) Current Condition History of Current Condition Onset Date Long-standing history Current Complaints LE neuropathy, poor balance, gait difficulty, falls History of Current Condition Pt is an 86 year old male presenting with a long- standing history of LE polyneuropathy. Pt notes a general muted sensation in his feet and ankles, and feels like his balance has been worsening, but is unsure if his difficulty comes from his actual neuropathy, or just his leg weakness, which he feels is the main issue. Pt notes that he had back surgery November of last year, the cleaned out between L4-5 and put some contraption in, and following therapy, was receiving therapy at a different clinic. Pt reports that both he and the therapist felt that he had reached a plateau, and they were not seeing much progress, however pt admits that since he stopped PT, he has lost a significant amount of LE strength and stability. Notes increased back pain when standing or walking longer than 15-20 minutes. Has had two recent falls, and another that was a few months ago. Admits that he doesn't really worry about his falls, because they have not yet resulted in an injury, but they seem to occur when he is in the bathroom and he just loses his balance. Uses a 4WW around his house, but finds it hard to get the walker into his car , so he keeps a FWW in the car for use when out. Notes that when he showers, he is unable to feel the water on his left foot because of his neuropathy . PT-OP-C Subjective Start: 01/05/22 17:14 Freq: Status: Active Protocol: Document 03/29/22 15:15 DCW (Rec: 03/29/22 15:55 DCW [id number]) OP-PT Subjective Patient Comments Patient Comments Nothing much has changed. PT-OP-D Balance Start: 01/05/22 17:14 Freq: Status: Active Protocol: Document 01/05/22 16:00 DCW (Rec: 01/05/22 17:36 DCW [id number]) Balance Tests Ann Balance Test Ann Balance Test Score 10/56 Ann Impairment Rating 80 to 99% Impaired (Score 1-11 ) Ann Balance Assessment Evaluation Sitting to Standing Ability Independent w/Hands Unsupported Stance Unable w/out Assistance Sitting Unsupported, Feet on Floor Safely- 2 minutes Standing to Sitting Ability Independent, Uncontrolled Transfer Ability Supervision, Verbal Cues Unsupported Stance- Eyes Closed Falls Without Assistance Unsupported Stance- Eyes Open Assist to attain,<15 secs Reaching Forward Standing Supported, Looses Balance Pick- Up Object From Floor Requires Assistance Look Behind Shoulder - Standing Assist to Prevent Fall Turning 360 Degrees Requires Assistance Unsupported Stance, Alternating Feet on Assist to Prevent Fall Stair Unsupported Tandem Stance Balance Lost- Step/Stand Unilateral Leg Stance Unable,assist to not fall Total Score Ann Total Score (out of 56 points) 10 Ann Impairment Rating 80 to 99% Impaired (Score 1-11 ) PT-OP-E Functional Tests Start: 01/05/22 17:14 Freq: Status: Active Protocol: Document 01/05/22 16:00 DCW (Rec: 01/05/22 17:36 DCW [id number]) Functional Tests Timed Up and Go (TUG) Score 21.14 /c FWW Comments 3-trial average: 22.19, 21.37 , 19.87 TUG Impairment Rating 100% Impaired (Score 20) PT-OP-G Mobility & Gait Start: 01/05/22 17:14 Freq: Status: Active Protocol: Document 01/05/22 16:00 DCW (Rec: 01/05/22 17:36 DCW [id number]) OP Gait Assessment Gait Gait Assistance Required: Standby Assistance Assistive Devices Assistive Device Gait Belt,Front Wheeled Walker Gait Deviations General Gait Pattern Decreased Stride Length, Decreased Feet Clearance, Flexed Trunk,Lateral Trunk Lean,Wide Based Gait Factors Limiting Gait Function Factors Limiting Gait Function Decreased Activity Tolerance, Decreased Sensation,Decreased Strength,Poor Balance PT-OP-M Strength Start: 01/05/22 17:36 Freq: Status: Active Protocol: Document 01/05/22 16:00 DCW (Rec: 01/05/22 17:38 DCW [id number]) Hip Strength Hip Manual Muscle Testing Right Flexion (L2) 4- Good- Abduction 4- Good- Adduction 4 Good External Rotation 4 Good Internal Rotation 4 Good Left Flexion (L2) 4- Good- Abduction 4- Good- Adduction 4 Good External Rotation 4- Good- Internal Rotation 4- Good- Knee Strength Knee Manual Muscle Testing Right Flexion (S2) 4- Good- Extension (L3) 4+ Good+ Left Flexion (S2) 4- Good- Extension (L3) 4 Good Ankle/Foot Strength Ankle and Foot Manual Muscle Testing Right Dorsiflexion (L4) 3+ Fair+ Plantarflexion (S1) 3 Fair Left Dorsiflexion (L4) 3- Fair- Plantarflexion (S1) 3- Fair- PT-OP-Q Treatments Start: 01/05/22 17:14 Freq: Status: Active Protocol: Document 03/29/22 15:15 DCW (Rec: 03/29/22 15:55 DCW [id number]) Cardio Equipment Recumbent Elliptical (Biodex) Duration (Minutes) 5 Resistance 5 Seat Position 10 Gym Equipment Shuttle Recovery Unilateral Squats Resistance 37# Reps/Time 10x2 Bilateral Squats Resistance 50# Shuttle Recovery Platform Stable Reps/Time 10x2 Therapeutic Exercises Standing Exercises sidestepping Standing Exercise Name // bars Resistance Yellow Reps/Minutes 20'x4 mini squats Standing Exercise Name squats @ // bars Reps/Minutes x10 Neuro Re-Education Treatment Balance Activities Tilt board Details Tilt board A/P, Lateral Comments EO/EC SLS Details SLS Equipment // bars Tandem Stance Details Tandem stance Equipment // bars Hurdles Details Hurdles Equipment // bars Comments UE support, Fwd and lateral 3 times ea NBOS Details NBOS Surface Firm Equipment @ rail Comments X1 PT-OP-T Assessment and Plan Start: 01/05/22 17:14 Freq: Status: Active Protocol: Document 03/29/22 15:15 DCW (Rec: 03/29/22 15:55 DCW [id number]) Physical Therapy Assessment Impairments Impairments Activity Tolerance,Balance, Functional Activities, Functional Mobility,Gait, Posture,Strength,Tone, Transfers Goals Three Impairment TUG score of 21.14 using a FWW Saw Tailer Goal (LTG) Pt to decrease time taken to perform TUG while using a FWW to <16 seconds in order to demonstrate an improved gait speed. 02/28: 25.5 seconds LTG Duration 04/05/22 Two Impairment Pt shows significant falls risk with Ann score of 10/56 [facility] Goal (LTG) Pt to score at least 10 points higher on the Ann Balance scale with a score of 20/56 in order to demonstrate a decreased falls risk. 02/28: 13 /56 LTG Duration 04/05/22 One Impairment Pt does not have an appropriate home exercise program Short Term Goal (STG) Pt to be independent and compliant with an appropriate HEP STG Duration 02/04/22 Assessment Summary Assessment Pt more fatigued again today, multiple rest breaks throughout session. Did perform HEP this morning prior to PT, may have led to increased fatigue. Physical Therapy Plan Frequency and Duration Frequency of Treatment 2x/Week Duration of Treatment 90 days Plan of Care Start Date 01/05/22 Plan of Care End Date 04/05/22 Therapeutic Interventions Therapeutic Interventions Aquatic Therapy,Balance Training,Gait Training,Home Exercise Program,Manual Therapy,Neuromuscular Re- education,Patient/Caregiver Education,Self-Care/Home Management,Soft Tissue Mobilization,Therapeutic Activities,Therapeutic Exercises Next Visit Focus/Plan Next Note Type Treatment Note Next Visit Plan Continue PT per POC for strengthening, transfers, balance, gait training.
--- NOTE | 2022-04-01 15:17 | PT.OTN ---
Current Diagnoses Polyneuropathy, unspecified (04/01/22) Other abnormalities of gait and mobility (04/01/22) Repeated falls (04/01/22) Physical Therapy Treatment Note PT-OP-A Visit Information Start: 01/05/22 17:14 Freq: Status: Active Protocol: Document 04/01/22 14:30 DCW (Rec: 04/01/22 15:17 DCW [id number]) Out-Patient Physical Therapy Visit Information Visit Information Visit Type Treatment Note Visit Start Time 14:30 Visit Stop Time 15:15 Total Visit Minutes 45 Visit Number 18 Number of MAILROOM CLERK Visits 0 Evaluation Information Evaluation Date 01/05/22 PT-OP-B Current Condition Start: 01/05/22 17:14 Freq: Status: Active Protocol: Document 01/05/22 16:00 DCW (Rec: 01/05/22 17:33 DCW [id number]) Current Condition History of Current Condition Onset Date Long-standing history Current Complaints LE neuropathy, poor balance, gait difficulty, falls History of Current Condition Pt is an 86 year old male presenting with a long- standing history of LE polyneuropathy. Pt notes a general muted sensation in his feet and ankles, and feels like his balance has been worsening, but is unsure if his difficulty comes from his actual neuropathy, or just his leg weakness, which he feels is the main issue. Pt notes that he had back surgery November of last year, the cleaned out between L4-5 and put some contraption in, and following therapy, was receiving therapy at a different clinic. Pt reports that both he and the therapist felt that he had reached a plateau, and they were not seeing much progress, however pt admits that since he stopped PT, he has lost a significant amount of LE strength and stability. Notes increased back pain when standing or walking longer than 15-20 minutes. Has had two recent falls, and another that was a few months ago. Admits that he doesn't really worry about his falls, because they have not yet resulted in an injury, but they seem to occur when he is in the bathroom and he just loses his balance. Uses a 4WW around his house, but finds it hard to get the walker into his car , so he keeps a FWW in the car for use when out. Notes that when he showers, he is unable to feel the water on his left foot because of his neuropathy . PT-OP-C Subjective Start: 01/05/22 17:14 Freq: Status: Active Protocol: Document 04/01/22 14:30 DCW (Rec: 04/01/22 15:17 DCW [id number]) OP-PT Subjective Patient Comments Patient Comments I think I feel stronger than I did the other day. PT-OP-D Balance Start: 01/05/22 17:14 Freq: Status: Active Protocol: Document 01/05/22 16:00 DCW (Rec: 01/05/22 17:36 DCW [id number]) Balance Tests Ann Balance Test Ann Balance Test Score 10/56 Ann Impairment Rating 80 to 99% Impaired (Score 1-11 ) Ann Balance Assessment Evaluation Sitting to Standing Ability Independent w/Hands Unsupported Stance Unable w/out Assistance Sitting Unsupported, Feet on Floor Safely- 2 minutes Standing to Sitting Ability Independent, Uncontrolled Transfer Ability Supervision, Verbal Cues Unsupported Stance- Eyes Closed Falls Without Assistance Unsupported Stance- Eyes Open Assist to attain,<15 secs Reaching Forward Standing Supported, Looses Balance Pick- Up Object From Floor Requires Assistance Look Behind Shoulder - Standing Assist to Prevent Fall Turning 360 Degrees Requires Assistance Unsupported Stance, Alternating Feet on Assist to Prevent Fall Stair Unsupported Tandem Stance Balance Lost- Step/Stand Unilateral Leg Stance Unable,assist to not fall Total Score Ann Total Score (out of 56 points) 10 Ann Impairment Rating 80 to 99% Impaired (Score 1-11 ) PT-OP-E Functional Tests Start: 01/05/22 17:14 Freq: Status: Active Protocol: Document 01/05/22 16:00 DCW (Rec: 01/05/22 17:36 DCW [id number]) Functional Tests Timed Up and Go (TUG) Score 21.14 /c FWW Comments 3-trial average: 22.19, 21.37 , 19.87 TUG Impairment Rating 100% Impaired (Score 20) PT-OP-G Mobility & Gait Start: 01/05/22 17:14 Freq: Status: Active Protocol: Document 01/05/22 16:00 DCW (Rec: 01/05/22 17:36 DCW [id number]) OP Gait Assessment Gait Gait Assistance Required: Standby Assistance Assistive Devices Assistive Device Gait Belt,Front Wheeled Walker Gait Deviations General Gait Pattern Decreased Stride Length, Decreased Feet Clearance, Flexed Trunk,Lateral Trunk Lean,Wide Based Gait Factors Limiting Gait Function Factors Limiting Gait Function Decreased Activity Tolerance, Decreased Sensation,Decreased Strength,Poor Balance PT-OP-M Strength Start: 01/05/22 17:36 Freq: Status: Active Protocol: Document 01/05/22 16:00 DCW (Rec: 01/05/22 17:38 DCW [id number]) Hip Strength Hip Manual Muscle Testing Right Flexion (L2) 4- Good- Abduction 4- Good- Adduction 4 Good External Rotation 4 Good Internal Rotation 4 Good Left Flexion (L2) 4- Good- Abduction 4- Good- Adduction 4 Good External Rotation 4- Good- Internal Rotation 4- Good- Knee Strength Knee Manual Muscle Testing Right Flexion (S2) 4- Good- Extension (L3) 4+ Good+ Left Flexion (S2) 4- Good- Extension (L3) 4 Good Ankle/Foot Strength Ankle and Foot Manual Muscle Testing Right Dorsiflexion (L4) 3+ Fair+ Plantarflexion (S1) 3 Fair Left Dorsiflexion (L4) 3- Fair- Plantarflexion (S1) 3- Fair- PT-OP-Q Treatments Start: 01/05/22 17:14 Freq: Status: Active Protocol: Document 04/01/22 14:30 DCW (Rec: 04/01/22 15:17 DCW [id number]) Cardio Equipment Recumbent Elliptical (Biodex) Duration (Minutes) 5 Resistance 5 Seat Position 10 Gym Equipment Shuttle Recovery Unilateral Squats Resistance 37# Shuttle Recovery Platform Stable Reps/Time 10x2 Bilateral Squats Resistance 50# Shuttle Recovery Platform Stable Reps/Time 10x2 Therapeutic Exercises Standing Exercises Hamstring Curls Standing Exercise Name HS curls Side bilateral Resistance 4# sidestepping Standing Exercise Name // bars Resistance Red Reps/Minutes 20'x4 mini squats Standing Exercise Name squats @ // bars Reps/Minutes x10 Extension Standing Exercise Name Hip Extension Side bilateral Resistance Red Reps/Minutes x10 Therapeutic Activity Therapeutic Activity Sit<->Stand Name Sit<->Stand Comments Cures for positioning, posture , hip hinge Neuro Re-Education Treatment Balance Activities SLS Details SLS Equipment // bars Tandem Stance Details Tandem stance Equipment // bars Foam stance Surface Gaona foam Reps/Duration 3 min Comments Occasional UE support, EO/EC PT-OP-T Assessment and Plan Start: 01/05/22 17:14 Freq: Status: Active Protocol: Document 04/01/22 14:30 DCW (Rec: 04/01/22 15:17 DCW [id number]) Physical Therapy Assessment Impairments Impairments Activity Tolerance,Balance, Functional Activities, Functional Mobility,Gait, Posture,Strength,Tone, Transfers Goals Three Impairment TUG score of 21.14 using a FWW Care Home Goal (LTG) Pt to decrease time taken to perform TUG while using a FWW to <16 seconds in order to demonstrate an improved gait speed. 02/28: 25.5 seconds LTG Duration 04/05/22 Two Impairment Pt shows significant falls risk with Ann score of 10/56 Wood Lathe Operator Goal (LTG) Pt to score at least 10 points higher on the Ann Balance scale with a score of 20/56 in order to demonstrate a decreased falls risk. 02/28: 56 LTG Duration 04/05/22 One Impairment Pt does not have an appropriate home exercise program Short Term Goal (STG) Pt to be independent and compliant with an appropriate HEP STG Duration 02/04/22 Assessment Summary Assessment Fewer rest breaks needed today , still struggling noticeably with sit to stand secondary to LE weakness, especially left- sided. Physical Therapy Plan Frequency and Duration Frequency of Treatment 2x/Week Duration of Treatment 90 days Plan of Care Start Date 01/05/22 Plan of Care End Date 04/05/22 Therapeutic Interventions Therapeutic Interventions Aquatic Therapy,Balance Training,Gait Training,Home Exercise Program,Manual Therapy,Neuromuscular Re- education,Patient/Caregiver Education,Self-Care/Home Management,Soft Tissue Mobilization,Therapeutic Activities,Therapeutic Exercises Next Visit Focus/Plan Next Note Type Treatment Note Next Visit Plan Continue PT per POC for strengthening, transfers, balance, gait training.
--- NOTE | 2022-04-05 14:32 | PT.OTN ---
Current Diagnoses Polyneuropathy, unspecified (04/05/22) Other abnormalities of gait and mobility (04/05/22) Repeated falls (04/05/22) Physical Therapy Treatment Note PT-OP-A Visit Information Start: 01/05/22 17:14 Freq: Status: Active Protocol: Document 04/05/22 13:45 DCW (Rec: 04/05/22 14:32 DCW [id number]) Out-Patient Physical Therapy Visit Information Visit Information Visit Type Progress Note Visit Start Time 13:45 Visit Stop Time 14:30 Total Visit Minutes 45 Visit Number 19 Number of ARTIST SCIENTIFIC Visits 0 Evaluation Information Evaluation Date 01/05/22 PT-OP-B Current Condition Start: 01/05/22 17:14 Freq: Status: Active Protocol: Document 01/05/22 16:00 DCW (Rec: 01/05/22 17:33 DCW [id number]) Current Condition History of Current Condition Onset Date Long-standing history Current Complaints LE neuropathy, poor balance, gait difficulty, falls History of Current Condition Pt is an 86 year old male presenting with a long- standing history of LE polyneuropathy. Pt notes a general muted sensation in his feet and ankles, and feels like his balance has been worsening, but is unsure if his difficulty comes from his actual neuropathy, or just his leg weakness, which he feels is the main issue. Pt notes that he had back surgery November of last year, the cleaned out between L4-5 and put some contraption in, and following therapy, was receiving therapy at a different clinic. Pt reports that both he and the therapist felt that he had reached a plateau, and they were not seeing much progress, however pt admits that since he stopped PT, he has lost a significant amount of LE strength and stability. Notes increased back pain when standing or walking longer than 15-20 minutes. Has had two recent falls, and another that was a few months ago. Admits that he doesn't really worry about his falls, because they have not yet resulted in an injury, but they seem to occur when he is in the bathroom and he just loses his balance. Uses a 4WW around his house, but finds it hard to get the walker into his car , so he keeps a FWW in the car for use when out. Notes that when he showers, he is unable to feel the water on his left foot because of his neuropathy . PT-OP-C Subjective Start: 01/05/22 17:14 Freq: Status: Active Protocol: Document 04/05/22 13:45 DCW (Rec: 04/05/22 14:32 DCW [id number]) OP-PT Subjective Patient Comments Patient Comments Pt reports his has asked about the possibility of using a leg brace. PT-OP-D Balance Start: 01/05/22 17:14 Freq: Status: Active Protocol: Document 04/05/22 13:45 DCW (Rec: 04/05/22 14:16 DCW [id number]) Balance Tests Ann Balance Test Ann Balance Test Score 12/56 Ann Impairment Rating 60 to 79% Impaired (Score 12- 22) Ann Balance Assessment Evaluation Sitting to Standing Ability Independent w/Hands Unsupported Stance Unable w/out Assistance Sitting Unsupported, Feet on Floor Safely- 2 minutes Standing to Sitting Ability Assist, Control w/Hands Transfer Ability Supervision, Verbal Cues Unsupported Stance- Eyes Closed Falls Without Assistance Unsupported Stance- Eyes Open Assist to attain,<15 secs Reaching Forward Standing Supported, Looses Balance Pick- Up Object From Floor Requires Assistance Look Behind Shoulder - Standing Assist to Prevent Fall Turning 360 Degrees Requires Assistance Unsupported Stance, Alternating Feet on Assist to Prevent Fall Stair Unsupported Tandem Stance Balance Lost- Step/Stand Unilateral Leg Stance Unable,assist to not fall Total Score Ann Total Score (out of 56 points) 12 Ann Impairment Rating 60 to 79% Impaired (Score 12- 22) PT-OP-E Functional Tests Start: 01/05/22 17:14 Freq: Status: Active Protocol: Document 04/05/22 13:45 DCW (Rec: 04/05/22 14:16 DCW [id number]) Functional Tests Timed Up and Go (TUG) Score 25.51 /c FWW Comments 3-trial average: 30.38, 23.10 , 23.06 TUG Impairment Rating 100% Impaired (Score 20) PT-OP-G Mobility & Gait Start: 01/05/22 17:14 Freq: Status: Active Protocol: Document 04/05/22 13:45 DCW (Rec: 04/05/22 14:16 DCW [id number]) OP Gait Assessment Gait Gait Assistance Required: Standby Assistance Assistive Devices Assistive Device Gait Belt,Front Wheeled Walker Gait Deviations General Gait Pattern Decreased Stride Length, Decreased Feet Clearance, Flexed Trunk,Lateral Trunk Lean,Wide Based Gait Factors Limiting Gait Function Factors Limiting Gait Function Decreased Activity Tolerance, Decreased Sensation,Decreased Strength,Poor Balance PT-OP-M Strength Start: 01/05/22 17:36 Freq: Status: Active Protocol: Document 04/05/22 13:45 DCW (Rec: 04/05/22 14:16 DCW [id number]) Hip Strength Hip Manual Muscle Testing Right Flexion (L2) 4+ Good+ Abduction 4 Good Adduction 4+ Good+ External Rotation 4+ Good+ Internal Rotation 4 Good Left Flexion (L2) 4 Good Abduction 4 Good Adduction 4 Good External Rotation 4+ Good+ Internal Rotation 4 Good Knee Strength Knee Manual Muscle Testing Right Flexion (S2) 4 Good Extension (L3) 4+ Good+ Left Flexion (S2) 4 Good Extension (L3) 4+ Good+ Ankle/Foot Strength Ankle and Foot Manual Muscle Testing Right Dorsiflexion (L4) 4- Good- Plantarflexion (S1) 4- Good- Left Dorsiflexion (L4) 3+ Fair+ Plantarflexion (S1) 4- Good- PT-OP-Q Treatments Start: 01/05/22 17:14 Freq: Status: Active Protocol: Document 04/05/22 13:45 DCW (Rec: 04/05/22 14:32 DCW [id number]) Gym Equipment Shuttle Recovery Unilateral Squats Resistance 37# Shuttle Recovery Platform Stable Reps/Time 10x2 Bilateral Squats Resistance 50# Shuttle Recovery Platform Stable Reps/Time 10x2 Therapeutic Exercises Standing Exercises Hamstring Curls Standing Exercise Name HS curls Side bilateral Resistance 4# PT-OP-T Assessment and Plan Start: 01/05/22 17:14 Freq: Status: Active Protocol: Document 04/05/22 13:45 DCW (Rec: 04/05/22 14:32 [facility] [id number]) Physical Therapy Assessment Impairments Impairments Activity Tolerance,Balance, Functional Activities, Functional Mobility,Gait, Posture,Strength,Tone, Transfers Goals Three Impairment TUG score of 21.14 using a FWW Dental Laboratory Worker Goal (LTG) Pt to decrease time taken to perform TUG while using a FWW to <16 seconds in order to demonstrate an improved gait speed. 04/05/22: 25.51 seconds LTG Duration 06/05/22 Two Impairment Pt shows significant falls risk with Ann score of 10/56 Dental Laboratory Worker Goal (LTG) Pt to score at least 10 points higher on the Ann Balance scale with a score of 20/56 in order to demonstrate a decreased falls risk. 04/05/22: LTG Duration 06/05/22 One Impairment Pt does not have an appropriate home exercise program Short Term Goal (STG) Pt to be independent and compliant with an appropriate HEP STG Duration Met Assessment Summary Assessment Although pt balance testing remains largely unchanged ( Ann ->) or slightly worse (TUG 21.14->25.51), pt is finally progressing with MMT, good improvement in nearly all LE MMT planes. Pt seems to be very close to getting enough strength in his ankles to make a significant change in his stability, will likely benefit from continued LE strengthening, balance challenges, and implementation of aquatic therapy. Physical Therapy Plan Frequency and Duration Frequency of Treatment 2x/Week Duration of Treatment 90 days Plan of Care Start Date 04/05/22 Plan of Care End Date 07/04/22 Therapeutic Interventions Therapeutic Interventions Aquatic Therapy,Balance Training,Gait Training,Home Exercise Program,Manual Therapy,Neuromuscular Re- education,Patient/Caregiver Education,Self-Care/Home Management,Soft Tissue Mobilization,Therapeutic Activities,Therapeutic Exercises Next Visit Focus/Plan Next Note Type Treatment Note Next Visit Plan Continue PT per POC for strengthening, transfers, balance, gait training.
--- NOTE | 2022-04-05 14:33 | PT.OPPOC ---
Physical, Occupational & Speech Therapy At [facility] Current Diagnoses Polyneuropathy, unspecified (04/05/22) Other abnormalities of gait and mobility (04/05/22) Repeated falls (04/05/22) Visit Care Team Role Provider Type Dalton Proctor MD Family Provider Physician Primary Care Provider Specialty: Internal Medicine Address: [address] [place] [address], [facility] [address], [place], [address] Email: [email or web address] David Lowery MD Attending Provider Non-Staff Referring Provider Specialty: Medical Address: [address] [place] [address], [place], [address] Email: Plan Of Care PT-OP-T Assessment and Plan Start: 01/05/22 17:14 Freq: Status: Active Protocol: Document 04/05/22 13:45 DCW (Rec: 04/05/22 14:32 DCW [id number]) Physical Therapy Assessment Impairments Impairments Activity Tolerance,Balance, Functional Activities, Functional Mobility,Gait, Posture,Strength,Tone, Transfers Goals Three Impairment TUG score of 21.14 using a FWW Penitentiary Goal (LTG) Pt to decrease time taken to perform TUG while using a FWW to <16 seconds in order to demonstrate an improved gait speed. 04/05/22: 25.51 seconds LTG Duration 06/05/22 Two Impairment Pt shows significant falls risk with Ann score of 10/56 Executive Personal Assistant Goal (LTG) Pt to score at least 10 points higher on the Ann Balance scale with a score of 20/56 in order to demonstrate a decreased falls risk. 04/05/22: 12/56 LTG Duration 06/05/22 One Impairment Pt does not have an appropriate home exercise program Short Term Goal (STG) Pt to be independent and compliant with an appropriate HEP STG Duration Met Assessment Summary Assessment Although pt balance testing remains largely unchanged ( Ann 10/56->12/56) or slightly worse (TUG 21.14->25.51), pt is finally progressing with MMT, good improvement in nearly all LE MMT planes. Pt seems to be very close to getting enough strength in his ankles to make a significant change in his stability, will likely benefit from continued LE strengthening, balance challenges, and implementation of aquatic therapy. Physical Therapy Plan Frequency and Duration Frequency of Treatment 2x/Week Duration of Treatment 90 days Plan of Care Start Date 04/05/22 Plan of Care End Date 07/04/22 Therapeutic Interventions Therapeutic Interventions Aquatic Therapy,Balance Training,Gait Training,Home Exercise Program,Manual Therapy,Neuromuscular Re- education,Patient/Caregiver Education,Self-Care/Home Management,Soft Tissue Mobilization,Therapeutic Activities,Therapeutic Exercises Next Visit Focus/Plan Next Note Type Treatment Note Next Visit Plan Continue PT per POC for strengthening, transfers, balance, gait training. Plan of Care Dates Plan of Care Start Date 04/05/22 Plan of Care End Date 07/04/22 Electronically Signed by: Eligio Trent, PT 04/05/22 [id number] If you are in agreement with this Plan of Care, please return a signed and dated copy. I have reviewed this Plan of Care and certify that the skilled therapy services above are required to meet the patient?s needs. Physician Signature Date Printed Name and Credentials Clinical Instructor Signature Printed Name and Credentials
--- NOTE | 2022-04-08 14:32 | PT.OTN ---
Current Diagnoses Polyneuropathy, unspecified (04/08/22) Other abnormalities of gait and mobility (04/08/22) Repeated falls (04/08/22) Physical Therapy Treatment Note PT-OP-A Visit Information Start: 01/05/22 17:14 Freq: Status: Active Protocol: Document 04/08/22 13:45 DCW (Rec: 04/08/22 14:32 DCW [id number]) Out-Patient Physical Therapy Visit Information Visit Information Visit Type Treatment Note Visit Start Time 13:45 Visit Stop Time 14:30 Total Visit Minutes 45 Visit Number 20 Number of FULL STACK PHP DEVELOPER Visits 0 Evaluation Information Evaluation Date 01/05/22 PT-OP-B Current Condition Start: 01/05/22 17:14 Freq: Status: Active Protocol: Document 01/05/22 16:00 DCW (Rec: 01/05/22 17:33 DCW [id number]) Current Condition History of Current Condition Onset Date Long-standing history Current Complaints LE neuropathy, poor balance, gait difficulty, falls History of Current Condition Pt is an 86 year old male presenting with a long- standing history of LE polyneuropathy. Pt notes a general muted sensation in his feet and ankles, and feels like his balance has been worsening, but is unsure if his difficulty comes from his actual neuropathy, or just his leg weakness, which he feels is the main issue. Pt notes that he had back surgery November of last year, the cleaned out between L4-5 and put some contraption in, and following therapy, was receiving therapy at a different clinic. Pt reports that both he and the therapist felt that he had reached a plateau, and they were not seeing much progress, however pt admits that since he stopped PT, he has lost a significant amount of LE strength and stability. Notes increased back pain when standing or walking longer than 15-20 minutes. Has had two recent falls, and another that was a few months ago. Admits that he doesn't really worry about his falls, because they have not yet resulted in an injury, but they seem to occur when he is in the bathroom and he just loses his balance. Uses a 4WW around his house, but finds it hard to get the walker into his car , so he keeps a FWW in the car for use when out. Notes that when he showers, he is unable to feel the water on his left foot because of his neuropathy . PT-OP-C Subjective Start: 01/05/22 17:14 Freq: Status: Active Protocol: Document 04/08/22 13:45 DCW (Rec: 04/08/22 14:32 DCW [id number]) OP-PT Subjective Patient Comments Patient Comments Pt reports he had a fall a few days ago, struggled a lot trying to get up off the ground, and discovered that his UEs have become very week. PT-OP-D Balance Start: 01/05/22 17:14 Freq: Status: Active Protocol: Document 04/05/22 13:45 DCW (Rec: 04/05/22 14:16 DCW [id number]) Balance Tests Ann Balance Test Ann Balance Test Score 12/56 Ann Impairment Rating 60 to 79% Impaired (Score 12- 22) Ann Balance Assessment Evaluation Sitting to Standing Ability Independent w/Hands Unsupported Stance Unable w/out Assistance Sitting Unsupported, Feet on Floor Safely- 2 minutes Standing to Sitting Ability Assist, Control w/Hands Transfer Ability Supervision, Verbal Cues Unsupported Stance- Eyes Closed Falls Without Assistance Unsupported Stance- Eyes Open Assist to attain,<15 secs Reaching Forward Standing Supported, Looses Balance Pick- Up Object From Floor Requires Assistance Look Behind Shoulder - Standing Assist to Prevent Fall Turning 360 Degrees Requires Assistance Unsupported Stance, Alternating Feet on Assist to Prevent Fall Stair Unsupported Tandem Stance Balance Lost- Step/Stand Unilateral Leg Stance Unable,assist to not fall Total Score Ann Total Score (out of 56 points) 12 Ann Impairment Rating 60 to 79% Impaired (Score 12- 22) PT-OP-E Functional Tests Start: 01/05/22 17:14 Freq: Status: Active Protocol: Document 04/05/22 13:45 DCW (Rec: 04/05/22 14:16 DCW [id number]) Functional Tests Timed Up and Go (TUG) Score 25.51 /c FWW Comments 3-trial average: 30.38, 23.10 , 23.06 TUG Impairment Rating 100% Impaired (Score 20) PT-OP-G Mobility & Gait Start: 01/05/22 17:14 Freq: Status: Active Protocol: Document 04/05/22 13:45 DCW (Rec: 04/05/22 14:16 DCW [id number]) OP Gait Assessment Gait Gait Assistance Required: Standby Assistance Assistive Devices Assistive Device Gait Belt,Front Wheeled Walker Gait Deviations General Gait Pattern Decreased Stride Length, Decreased Feet Clearance, Flexed Trunk,Lateral Trunk Lean,Wide Based Gait Factors Limiting Gait Function Factors Limiting Gait Function Decreased Activity Tolerance, Decreased Sensation,Decreased Strength,Poor Balance PT-OP-M Strength Start: 01/05/22 17:36 Freq: Status: Active Protocol: Document 04/05/22 13:45 DCW (Rec: 04/05/22 14:16 DCW [id number]) Hip Strength Hip Manual Muscle Testing Right Flexion (L2) 4+ Good+ Abduction 4 Good Adduction 4+ Good+ External Rotation 4+ Good+ Internal Rotation 4 Good Left Flexion (L2) 4 Good Abduction 4 Good Adduction 4 Good External Rotation 4+ Good+ Internal Rotation 4 Good Knee Strength Knee Manual Muscle Testing Right Flexion (S2) 4 Good Extension (L3) 4+ Good+ Left Flexion (S2) 4 Good Extension (L3) 4+ Good+ Ankle/Foot Strength Ankle and Foot Manual Muscle Testing Right Dorsiflexion (L4) 4- Good- Plantarflexion (S1) 4- Good- Left Dorsiflexion (L4) 3+ Fair+ Plantarflexion (S1) 4- Good- PT-OP-Q Treatments Start: 01/05/22 17:14 Freq: Status: Active Protocol: Document 04/08/22 13:45 DCW (Rec: 04/08/22 14:32 DCW [id number]) Cardio Equipment Recumbent Elliptical (Biodex) Duration (Minutes) 5 Resistance 5 Seat Position 9 Gym Equipment Shuttle Recovery Unilateral Squats Resistance 37# Shuttle Recovery Platform Stable Reps/Time 10x2 Bilateral Squats Resistance 50# Shuttle Recovery Platform Stable Reps/Time 10x2 Therapeutic Exercises Other Exercises Wall push-ups Other Exercise Name Wall push-ups Comments help with floor transfers Neuro Re-Education Treatment Balance Activities SLS Details SLS Equipment // bars Tandem Stance Details Tandem stance Equipment // bars Hurdles Details Hurdles Equipment // bars Comments UE support, Fwd and lateral 3 times ea Foam stance Surface Gaona foam Reps/Duration 3 min Comments Occasional UE support, EO/EC PT-OP-T Assessment and Plan Start: 01/05/22 17:14 Freq: Status: Active Protocol: Document 04/08/22 13:45 DCW (Rec: 04/08/22 14:32 DC [id number]) Physical Therapy Assessment Impairments Impairments Activity Tolerance,Balance, Functional Activities, Functional Mobility,Gait, Posture,Strength,Tone, Transfers Goals Three Impairment TUG score of 21.14 using a FWW Senior Care Goal (LTG) Pt to decrease time taken to perform TUG while using a FWW to <16 seconds in order to demonstrate an improved gait speed. 04/05/22: 25.51 seconds LTG Duration 06/05/22 Two Impairment Pt shows significant falls risk with Ann score of 10/56 Senior Care Goal (LTG) Pt to score at least 10 points higher on the Ann Balance scale with a score of 20/56 in order to demonstrate a decreased falls risk. 04/05/22: 1256 LTG Duration 06/05/22 One Impairment Pt does not have an appropriate home exercise program Short Term Goal (STG) Pt to be independent and compliant with an appropriate HEP STG Duration Met Assessment Summary Assessment Continues to display decreased tolerance for activity, requires rest break following most activities. Some indications of improving strength. Physical Therapy Plan Frequency and Duration Frequency of Treatment 2x/Week Duration of Treatment 90 days Plan of Care Start Date 04/05/22 Plan of Care End Date 07/04/22 Therapeutic Interventions Therapeutic Interventions Aquatic Therapy,Balance Training,Gait Training,Home Exercise Program,Manual Therapy,Neuromuscular Re- education,Patient/Caregiver Education,Self-Care/Home Management,Soft Tissue Mobilization,Therapeutic Activities,Therapeutic Exercises Next Visit Focus/Plan Next Note Type Treatment Note Next Visit Plan Continue PT per POC for strengthening, transfers, balance, gait training.
--- NOTE | 2022-04-12 14:30 | PT.OTN ---
Current Diagnoses Polyneuropathy, unspecified (04/12/22) Other abnormalities of gait and mobility (04/12/22) Repeated falls (04/12/22) Physical Therapy Treatment Note PT-OP-A Visit Information Start: 01/05/22 17:14 Freq: Status: Active Protocol: Document 04/12/22 13:45 DCW (Rec: 04/12/22 14:30 DCW [id number]) Out-Patient Physical Therapy Visit Information Visit Information Visit Type Treatment Note Visit Start Time 13:45 Visit Stop Time 14:30 Total Visit Minutes 45 Visit Number 21 Number of MACHINE MAINTENANCE REPAIRER Visits 0 Evaluation Information Evaluation Date 01/05/22 PT-OP-B Current Condition Start: 01/05/22 17:14 Freq: Status: Active Protocol: Document 01/05/22 16:00 DCW (Rec: 01/05/22 17:33 DCW [id number]) Current Condition History of Current Condition Onset Date Long-standing history Current Complaints LE neuropathy, poor balance, gait difficulty, falls History of Current Condition Pt is an 86 year old male presenting with a long- standing history of LE polyneuropathy. Pt notes a general muted sensation in his feet and ankles, and feels like his balance has been worsening, but is unsure if his difficulty comes from his actual neuropathy, or just his leg weakness, which he feels is the main issue. Pt notes that he had back surgery November of last year, the cleaned out between L4-5 and put some contraption in, and following therapy, was receiving therapy at a different clinic. Pt reports that both he and the therapist felt that he had reached a plateau, and they were not seeing much progress, however pt admits that since he stopped PT, he has lost a significant amount of LE strength and stability. Notes increased back pain when standing or walking longer than 15-20 minutes. Has had two recent falls, and another that was a few months ago. Admits that he doesn't really worry about his falls, because they have not yet resulted in an injury, but they seem to occur when he is in the bathroom and he just loses his balance. Uses a 4WW around his house, but finds it hard to get the walker into his car , so he keeps a FWW in the car for use when out. Notes that when he showers, he is unable to feel the water on his left foot because of his neuropathy . PT-OP-C Subjective Start: 01/05/22 17:14 Freq: Status: Active Protocol: Document 04/12/22 13:45 DCW (Rec: 04/12/22 14:30 DCW [id number]) OP-PT Subjective Patient Comments Patient Comments Pt notes that physically, I'm doing pretty good. PT-OP-D Balance Start: 01/05/22 17:14 Freq: Status: Active Protocol: Document 04/05/22 13:45 DCW (Rec: 04/05/22 14:16 DCW [id number]) Balance Tests Ann Balance Test Ann Balance Test Score 12/56 Ann Impairment Rating 60 to 79% Impaired (Score 12- 22) Ann Balance Assessment Evaluation Sitting to Standing Ability Independent w/Hands Unsupported Stance Unable w/out Assistance Sitting Unsupported, Feet on Floor Safely- 2 minutes Standing to Sitting Ability Assist, Control w/Hands Transfer Ability Supervision, Verbal Cues Unsupported Stance- Eyes Closed Falls Without Assistance Unsupported Stance- Eyes Open Assist to attain,<15 secs Reaching Forward Standing Supported, Looses Balance Pick- Up Object From Floor Requires Assistance Look Behind Shoulder - Standing Assist to Prevent Fall Turning 360 Degrees Requires Assistance Unsupported Stance, Alternating Feet on Assist to Prevent Fall Stair Unsupported Tandem Stance Balance Lost- Step/Stand Unilateral Leg Stance Unable,assist to not fall Total Score Ann Total Score (out of 56 points) 12 Ann Impairment Rating 60 to 79% Impaired (Score 12- 22) PT-OP-E Functional Tests Start: 01/05/22 17:14 Freq: Status: Active Protocol: Document 04/05/22 13:45 DCW (Rec: 04/05/22 14:16 DCW [id number]) Functional Tests Timed Up and Go (TUG) Score 25.51 /c FWW Comments 3-trial average: 30.38, 23.10 , 23.06 TUG Impairment Rating 100% Impaired (Score 20) PT-OP-G Mobility & Gait Start: 01/05/22 17:14 Freq: Status: Active Protocol: Document 04/05/22 13:45 DCW (Rec: 04/05/22 14:16 DCW [id number]) OP Gait Assessment Gait Gait Assistance Required: Standby Assistance Assistive Devices Assistive Device Gait Belt,Front Wheeled Walker Gait Deviations General Gait Pattern Decreased Stride Length, Decreased Feet Clearance, Flexed Trunk,Lateral Trunk Lean,Wide Based Gait Factors Limiting Gait Function Factors Limiting Gait Function Decreased Activity Tolerance, Decreased Sensation,Decreased Strength,Poor Balance PT-OP-M Strength Start: 01/05/22 17:36 Freq: Status: Active Protocol: Document 04/05/22 13:45 DCW (Rec: 04/05/22 14:16 DCW [id number]) Hip Strength Hip Manual Muscle Testing Right Flexion (L2) 4+ Good+ Abduction 4 Good Adduction 4+ Good+ External Rotation 4+ Good+ Internal Rotation 4 Good Left Flexion (L2) 4 Good Abduction 4 Good Adduction 4 Good External Rotation 4+ Good+ Internal Rotation 4 Good Knee Strength Knee Manual Muscle Testing Right Flexion (S2) 4 Good Extension (L3) 4+ Good+ Left Flexion (S2) 4 Good Extension (L3) 4+ Good+ Ankle/Foot Strength Ankle and Foot Manual Muscle Testing Right Dorsiflexion (L4) 4- Good- Plantarflexion (S1) 4- Good- Left Dorsiflexion (L4) 3+ Fair+ Plantarflexion (S1) 4- Good- PT-OP-Q Treatments Start: 01/05/22 17:14 Freq: Status: Active Protocol: Document 04/12/22 13:45 DCW (Rec: 04/12/22 14:30 DCW [id number]) Cardio Equipment Recumbent Elliptical (Biodex) Duration (Minutes) 5 Resistance 5 Seat Position 9 Gym Equipment Shuttle Recovery Unilateral Squats Resistance 37# Shuttle Recovery Platform Stable Reps/Time 10x2 Bilateral Squats Resistance 50# Shuttle Recovery Platform Stable Reps/Time 10x2 Therapeutic Exercises Sitting Exercises Bench Press Sitting Exercise Name Seated T-band bench press Side bilateral Resistance Lv 2 Comments Assist /c floor transfer ability Ankle Flexion Sitting Exercise Name 4-way ankle flexion Side bilateral Resistance Lv 2 Reps/Minutes 10x ea Neuro Re-Education Treatment Balance Activities Tilt board Details Tilt board A/P, Lateral Comments EO/EC Tandem Stance Details Tandem stance Equipment // bars Hurdles Details Hurdles Equipment // bars Comments UE support, Fwd and lateral 3 times ea PT-OP-T Assessment and Plan Start: 01/05/22 17:14 Freq: Status: Active Protocol: Document 04/12/22 13:45 DCW (Rec: 04/12/22 14:30 DCW [id number]) Physical Therapy Assessment Impairments Impairments Activity Tolerance,Balance, Functional Activities, Functional Mobility,Gait, Posture,Strength,Tone, Transfers Goals Three Impairment TUG score of 21.14 using a FWW Longterm Goal (LTG) Pt to decrease time taken to perform TUG while using a FWW to <16 seconds in order to demonstrate an improved gait speed. 04/05/22: 25.51 seconds LTG Duration 06/05/22 Two Impairment Pt shows significant falls risk with Ann score of 10/56 Longterm Goal (LTG) Pt to score at least 10 points higher on the Ann Balance scale with a score of 20/56 in order to demonstrate a decreased falls risk. 04/05/22: 1256 LTG Duration 06/05/22 One Impairment Pt does not have an appropriate home exercise program Short Term Goal (STG) Pt to be independent and compliant with an appropriate HEP STG Duration Met Assessment Summary Assessment Fewer rest breaks today, pt able to string together multiple activities in a row without rest, noticeable improvement with hurdles today . Physical Therapy Plan Frequency and Duration Frequency of Treatment 2x/Week Duration of Treatment 90 days Plan of Care Start Date 04/05/22 Plan of Care End Date 07/04/22 Therapeutic Interventions Therapeutic Interventions Aquatic Therapy,Balance Training,Gait Training,Home Exercise Program,Manual Therapy,Neuromuscular Re- education,Patient/Caregiver Education,Self-Care/Home Management,Soft Tissue Mobilization,Therapeutic Activities,Therapeutic Exercises Next Visit Focus/Plan Next Note Type Treatment Note Next Visit Plan Continue PT per POC for strengthening, transfers, balance, gait training.
--- NOTE | 2022-04-20 08:02 | PT-OP ANOTE ---
cancelled due to concerned about safety at pool due to his poor balance. Reports recent fall for which he went to ED.
--- NOTE | 2022-04-22 14:31 | PT.OTN ---
Current Diagnoses Polyneuropathy, unspecified (04/22/22) Other abnormalities of gait and mobility (04/22/22) Repeated falls (04/22/22) Physical Therapy Treatment Note PT-OP-A Visit Information Start: 01/05/22 17:14 Freq: Status: Active Protocol: Document 04/22/22 13:45 DCW (Rec: 04/22/22 14:31 DCW [id number]) Out-Patient Physical Therapy Visit Information Visit Information Visit Type Treatment Note Visit Start Time 13:45 Visit Stop Time 14:30 Total Visit Minutes 45 Visit Number 22 Number of NET C DEVELOPER Visits 0 Evaluation Information Evaluation Date 01/05/22 PT-OP-B Current Condition Start: 01/05/22 17:14 Freq: Status: Active Protocol: Document 01/05/22 16:00 DCW (Rec: 01/05/22 17:33 DCW [id number]) Current Condition History of Current Condition Onset Date Long-standing history Current Complaints LE neuropathy, poor balance, gait difficulty, falls History of Current Condition Pt is an 86 year old male presenting with a long- standing history of LE polyneuropathy. Pt notes a general muted sensation in his feet and ankles, and feels like his balance has been worsening, but is unsure if his difficulty comes from his actual neuropathy, or just his leg weakness, which he feels is the main issue. Pt notes that he had back surgery November of last year, the cleaned out between L4-5 and put some contraption in, and following therapy, was receiving therapy at a different clinic. Pt reports that both he and the therapist felt that he had reached a plateau, and they were not seeing much progress, however pt admits that since he stopped PT, he has lost a significant amount of LE strength and stability. Notes increased back pain when standing or walking longer than 15-20 minutes. Has had two recent falls, and another that was a few months ago. Admits that he doesn't really worry about his falls, because they have not yet resulted in an injury, but they seem to occur when he is in the bathroom and he just loses his balance. Uses a 4WW around his house, but finds it hard to get the walker into his car , so he keeps a FWW in the car for use when out. Notes that when he showers, he is unable to feel the water on his left foot because of his neuropathy . PT-OP-C Subjective Start: 01/05/22 17:14 Freq: Status: Active Protocol: Document 04/22/22 13:45 DCW (Rec: 04/22/22 14:31 DCW [id number]) OP-PT Subjective Patient Comments Patient Comments Pt discussing his recent fall, which resulted in a trip to the ED. Reports he is feeling better, no injuries, still not sure how he actually fell. PT-OP-D Balance Start: 01/05/22 17:14 Freq: Status: Active Protocol: Document 04/05/22 13:45 DCW (Rec: 04/05/22 14:16 DCW [id number]) Balance Tests Ann Balance Test Ann Balance Test Score 12/56 Ann Impairment Rating 60 to 79% Impaired (Score 12- 22) Ann Balance Assessment Evaluation Sitting to Standing Ability Independent w/Hands Unsupported Stance Unable w/out Assistance Sitting Unsupported, Feet on Floor Safely- 2 minutes Standing to Sitting Ability Assist, Control w/Hands Transfer Ability Supervision, Verbal Cues Unsupported Stance- Eyes Closed Falls Without Assistance Unsupported Stance- Eyes Open Assist to attain,<15 secs Reaching Forward Standing Supported, Looses Balance Pick- Up Object From Floor Requires Assistance Look Behind Shoulder - Standing Assist to Prevent Fall Turning 360 Degrees Requires Assistance Unsupported Stance, Alternating Feet on Assist to Prevent Fall Stair Unsupported Tandem Stance Balance Lost- Step/Stand Unilateral Leg Stance Unable,assist to not fall Total Score Ann Total Score (out of 56 points) 12 Ann Impairment Rating 60 to 79% Impaired (Score 12- 22) PT-OP-E Functional Tests Start: 01/05/22 17:14 Freq: Status: Active Protocol: Document 04/05/22 13:45 DCW (Rec: 04/05/22 14:16 DCW [id number]) Functional Tests Timed Up and Go (TUG) Score 25.51 /c FWW Comments 3-trial average: 30.38, 23.10 , 23.06 TUG Impairment Rating 100% Impaired (Score 20) PT-OP-G Mobility & Gait Start: 01/05/22 17:14 Freq: Status: Active Protocol: Document 04/05/22 13:45 DCW (Rec: 04/05/22 14:16 DCW [id number]) OP Gait Assessment Gait Gait Assistance Required: Standby Assistance Assistive Devices Assistive Device Gait Belt,Front Wheeled Walker Gait Deviations General Gait Pattern Decreased Stride Length, Decreased Feet Clearance, Flexed Trunk,Lateral Trunk Lean,Wide Based Gait Factors Limiting Gait Function Factors Limiting Gait Function Decreased Activity Tolerance, Decreased Sensation,Decreased Strength,Poor Balance PT-OP-M Strength Start: 01/05/22 17:36 Freq: Status: Active Protocol: Document 04/05/22 13:45 DCW (Rec: 04/05/22 14:16 DCW [id number]) Hip Strength Hip Manual Muscle Testing Right Flexion (L2) 4+ Good+ Abduction 4 Good Adduction 4+ Good+ External Rotation 4+ Good+ Internal Rotation 4 Good Left Flexion (L2) 4 Good Abduction 4 Good Adduction 4 Good External Rotation 4+ Good+ Internal Rotation 4 Good Knee Strength Knee Manual Muscle Testing Right Flexion (S2) 4 Good Extension (L3) 4+ Good+ Left Flexion (S2) 4 Good Extension (L3) 4+ Good+ Ankle/Foot Strength Ankle and Foot Manual Muscle Testing Right Dorsiflexion (L4) 4- Good- Plantarflexion (S1) 4- Good- Left Dorsiflexion (L4) 3+ Fair+ Plantarflexion (S1) 4- Good- PT-OP-Q Treatments Start: 01/05/22 17:14 Freq: Status: Active Protocol: Document 04/22/22 13:45 DCW (Rec: 04/22/22 14:31 DCW [id number]) Cardio Equipment Recumbent Elliptical (Biodex) Duration (Minutes) 5 Resistance 5 Seat Position 9 Gym Equipment Shuttle Recovery Unilateral Squats Resistance 37# Shuttle Recovery Platform Stable Reps/Time 10x2 Bilateral Squats Resistance 50# Shuttle Recovery Platform Stable Reps/Time 10x2 Therapeutic Exercises Sitting Exercises Bench Press Sitting Exercise Name Seated T-band bench press Side bilateral Resistance Lv 2 Comments Assist /c floor transfer ability LAQ Sitting Exercise Name LAQ Side bilateral Resistance 4# Ankle Flexion Sitting Exercise Name 4-way ankle flexion Side bilateral Resistance Lv 2 Reps/Minutes 10x ea Standing Exercises Hamstring Curls Standing Exercise Name HS curls Side bilateral Resistance 4# Extension Standing Exercise Name Hip Extension Side bilateral Resistance Red Reps/Minutes x10 Abduction Standing Exercise Name Hip Abduction Side bilateral Resistance Red Reps/Minutes x10 Neuro Re-Education Treatment Balance Activities Tilt board Details Tilt board A/P, Lateral Comments EO/EC Tandem Stance Details Tandem stance Equipment // bars Hurdles Details Hurdles Equipment // bars Comments UE support, Fwd and lateral 3 times ea PT-OP-T Assessment and Plan Start: 01/05/22 17:14 Freq: Status: Active Protocol: Document 04/22/22 13:45 DCW (Rec: 04/22/22 14:31 DCW [id number]) Physical Therapy Assessment Impairments Impairments Activity Tolerance,Balance, Functional Activities, Functional Mobility,Gait, Posture,Strength,Tone, Transfers Goals Three Impairment TUG score of 21.14 using a FWW Residential Goal (LTG) Pt to decrease time taken to perform TUG while using a FWW to <16 seconds in order to demonstrate an improved gait speed. 04/05/22: 25.51 seconds LTG Duration 06/05/22 Two Impairment Pt shows significant falls risk with Ann score of 10/56 Residential Goal (LTG) Pt to score at least 10 points higher on the Ann Balance scale with a score of 20/56 in order to demonstrate a decreased falls risk. 04/05/22: 12/56 LTG Duration 06/05/22 One Impairment Pt does not have an appropriate home exercise program Short Term Goal (STG) Pt to be independent and compliant with an appropriate HEP STG Duration Met Assessment Summary Assessment Improving activity tolerance overall, pt feeling a little more confident despite his recent fall. Discussed more how good aquatic therapy could be for him, pt appears to be more interested in it today. Physical Therapy Plan Frequency and Duration Frequency of Treatment 2x/Week Duration of Treatment 90 days Plan of Care Start Date 04/05/22 Plan of Care End Date 07/04/22 Therapeutic Interventions Therapeutic Interventions Aquatic Therapy,Balance Training,Gait Training,Home Exercise Program,Manual Therapy,Neuromuscular Re- education,Patient/Caregiver Education,Self-Care/Home Management,Soft Tissue Mobilization,Therapeutic Activities,Therapeutic Exercises Next Visit Focus/Plan Next Note Type Treatment Note Next Visit Plan Continue PT per POC for strengthening, transfers, balance, gait training.
--- NOTE | 2022-04-25 14:21 | PT-OP ANOTE ---
not up to it today per patient discussion with front office staff
--- NOTE | 2022-04-29 14:33 | PT.OTN ---
Current Diagnoses Polyneuropathy, unspecified (04/29/22) Other abnormalities of gait and mobility (04/29/22) Repeated falls (04/29/22) Physical Therapy Treatment Note PT-OP-A Visit Information Start: 01/05/22 17:14 Freq: Status: Active Protocol: Document 04/29/22 13:45 DCW (Rec: 04/29/22 14:33 DCW [id number]) Out-Patient Physical Therapy Visit Information Visit Information Visit Type Treatment Note Visit Start Time 13:45 Visit Stop Time 14:30 Total Visit Minutes 45 Visit Number 23 Number of VP CUSTOMER SERVICE Visits 0 Evaluation Information Evaluation Date 01/05/22 PT-OP-B Current Condition Start: 01/05/22 17:14 Freq: Status: Active Protocol: Document 01/05/22 16:00 DCW (Rec: 01/05/22 17:33 DCW [id number]) Current Condition History of Current Condition Onset Date Long-standing history Current Complaints LE neuropathy, poor balance, gait difficulty, falls History of Current Condition Pt is an 86 year old male presenting with a long- standing history of LE polyneuropathy. Pt notes a general muted sensation in his feet and ankles, and feels like his balance has been worsening, but is unsure if his difficulty comes from his actual neuropathy, or just his leg weakness, which he feels is the main issue. Pt notes that he had back surgery November of last year, the cleaned out between L4-5 and put some contraption in, and following therapy, was receiving therapy at a different clinic. Pt reports that both he and the therapist felt that he had reached a plateau, and they were not seeing much progress, however pt admits that since he stopped PT, he has lost a significant amount of LE strength and stability. Notes increased back pain when standing or walking longer than 15-20 minutes. Has had two recent falls, and another that was a few months ago. Admits that he doesn't really worry about his falls, because they have not yet resulted in an injury, but they seem to occur when he is in the bathroom and he just loses his balance. Uses a 4WW around his house, but finds it hard to get the walker into his car , so he keeps a FWW in the car for use when out. Notes that when he showers, he is unable to feel the water on his left foot because of his neuropathy . PT-OP-C Subjective Start: 01/05/22 17:14 Freq: Status: Active Protocol: Document 04/29/22 13:45 DCW (Rec: 04/29/22 14:33 DCW [id number]) OP-PT Subjective Patient Comments Patient Comments Pt admits he's just not confident enough to go to the pool for aquatic therapy, has changed his schedule to all land-based PT for now, willing to revisit in the future when he feels more confident. PT-OP-D Balance Start: 01/05/22 17:14 Freq: Status: Active Protocol: Document 04/05/22 13:45 DCW (Rec: 04/05/22 14:16 DCW [id number]) Balance Tests Ann Balance Test Ann Balance Test Score 12/56 Nan Impairment Rating 60 to 79% Impaired (Score 12- 22) Ann Balance Assessment Evaluation Sitting to Standing Ability Independent w/Hands Unsupported Stance Unable w/out Assistance Sitting Unsupported, Feet on Floor Safely- 2 minutes Standing to Sitting Ability Assist, Control w/Hands Transfer Ability Supervision, Verbal Cues Unsupported Stance- Eyes Closed Falls Without Assistance Unsupported Stance- Eyes Open Assist to attain,<15 secs Reaching Forward Standing Supported, Looses Balance Pick- Up Object From Floor Requires Assistance Look Behind Shoulder - Standing Assist to Prevent Fall Turning 360 Degrees Requires Assistance Unsupported Stance, Alternating Feet on Assist to Prevent Fall Stair Unsupported Tandem Stance Balance Lost- Step/Stand Unilateral Leg Stance Unable,assist to not fall Total Score Ann Total Score (out of 56 points) 12 Ann Impairment Rating 60 to 79% Impaired (Score 12- 22) PT-OP-E Functional Tests Start: 01/05/22 17:14 Freq: Status: Active Protocol: Document 04/05/22 13:45 DCW (Rec: 04/05/22 14:16 DCW [id number]) Functional Tests Timed Up and Go (TUG) Score 25.51 /c FWW Comments 3-trial average: 30.38, 23.10 , 23.06 TUG Impairment Rating 100% Impaired (Score 20) PT-OP-G Mobility & Gait Start: 01/05/22 17:14 Freq: Status: Active Protocol: Document 04/05/22 13:45 DCW (Rec: 04/05/22 14:16 DCW [id number]) OP Gait Assessment Gait Gait Assistance Required: Standby Assistance Assistive Devices Assistive Device Gait Belt,Front Wheeled Walker Gait Deviations General Gait Pattern Decreased Stride Length, Decreased Feet Clearance, Flexed Trunk,Lateral Trunk Lean,Wide Based Gait Factors Limiting Gait Function Factors Limiting Gait Function Decreased Activity Tolerance, Decreased Sensation,Decreased Strength,Poor Balance PT-OP-M Strength Start: 01/05/22 17:36 Freq: Status: Active Protocol: Document 04/05/22 13:45 DCW (Rec: 04/05/22 14:16 [email or web address] [id number]) Hip Strength Hip Manual Muscle Testing Right Flexion (L2) 4+ Good+ Abduction 4 Good Adduction 4+ Good+ External Rotation 4+ Good+ Internal Rotation 4 Good Left Flexion (L2) 4 Good Abduction 4 Good Adduction 4 Good External Rotation 4+ Good+ Internal Rotation 4 Good Knee Strength Knee Manual Muscle Testing Right Flexion (S2) 4 Good Extension (L3) 4+ Good+ Left Flexion (S2) 4 Good Extension (L3) 4+ Good+ Ankle/Foot Strength Ankle and Foot Manual Muscle Testing Right Dorsiflexion (L4) 4- Good- Plantarflexion (S1) 4- Good- Left Dorsiflexion (L4) 3+ Fair+ Plantarflexion (S1) 4- Good- PT-OP-Q Treatments Start: 01/05/22 17:14 Freq: Status: Active Protocol: Document 04/29/22 13:45 DCW (Rec: 04/29/22 14:33 DCW [id number]) Cardio Equipment Recumbent Elliptical (Biodex) Duration (Minutes) 5 Resistance 5 Seat Position 9 Gym Equipment Shuttle Recovery Unilateral Squats Resistance 37# Shuttle Recovery Platform Stable Reps/Time 10x2 Bilateral Squats Resistance 50# Shuttle Recovery Platform Stable Reps/Time x10 Therapeutic Exercises Sitting Exercises Ankle Flexion Sitting Exercise Name 4-way ankle flexion Side bilateral Resistance Lv 2 Reps/Minutes 10x ea Standing Exercises Extension Standing Exercise Name Hip Extension Side bilateral Resistance Red Reps/Minutes x10 Abduction Standing Exercise Name Hip Abduction Side bilateral Resistance Red Reps/Minutes x10 Neuro Re-Education Treatment Balance Activities Tilt board Details Tilt board A/P, Lateral Comments EO/EC Tandem Stance Details Tandem stance Equipment // bars Hurdles Details Hurdles Equipment // bars Comments UE support, Fwd and lateral 3 times ea PT-OP-T Assessment and Plan Start: 01/05/22 17:14 Freq: Status: Active Protocol: Document 04/29/22 13:45 DCW (Rec: 04/29/22 14:33 DCW [id number]) Physical Therapy Assessment Impairments Impairments Activity Tolerance,Balance, Functional Activities, Functional Mobility,Gait, Posture,Strength,Tone, Transfers Goals Three Impairment TUG score of 21.14 using a FWW Mcfp Goal (LTG) Pt to decrease time taken to perform TUG while using a FWW to <16 seconds in order to demonstrate an improved gait speed. 04/05/22: 25.51 seconds LTG Duration 06/05/22 Two Impairment Pt shows significant falls risk with Ann score of 10/56 [employer] Tax Auditor Goal (LTG) Pt to score at least 10 points higher on the Ann Balance scale with a score of 20/56 in order to demonstrate a decreased falls risk. 04/05/22: 1256 LTG Duration 06/05/22 One Impairment Pt does not have an appropriate home exercise program Short Term Goal (STG) Pt to be independent and compliant with an appropriate HEP STG Duration Met Assessment Summary Assessment Pt still feeling less confident in his gait and balance after his recent fall, but has been working hard in therapy. Activity tolerance limiting some participation in PT, pt requires fairly consistent rest breaks. Physical Therapy Plan Frequency and Duration Frequency of Treatment 2x/Week Plan of Care Start Date 04/05/22 Plan of Care End Date 07/04/22 Therapeutic Interventions Therapeutic Interventions Aquatic Therapy,Balance Training,Gait Training,Home Exercise Program,Manual Therapy,Neuromuscular Re- education,Patient/Caregiver Education,Self-Care/Home Management,Soft Tissue Mobilization,Therapeutic Activities,Therapeutic Exercises Next Visit Focus/Plan Next Note Type Treatment Note Next Visit Plan Continue PT per POC for strengthening, transfers, balance, gait training.
--- NOTE | 2022-05-02 17:23 | PT.OTN ---
Current Diagnoses Polyneuropathy, unspecified (05/02/22) Other abnormalities of gait and mobility (05/02/22) Repeated falls (05/02/22) Physical Therapy Treatment Note PT-OP-A Visit Information Start: 01/05/22 17:14 Freq: Status: Active Protocol: Document 05/02/22 13:01 NBM (Rec: 05/02/22 13:48 NBM [id number]) Out-Patient Physical Therapy Visit Information Visit Information Visit Type Treatment Note Visit Start Time 13:00 Visit Stop Time 13:42 Total Visit Minutes 42 Visit Number 24 Number of ARTIFICIAL STONE APPLICATOR Visits 1 PT-OP-B Current Condition Start: 01/05/22 17:14 Freq: Status: Active Protocol: Document 01/05/22 16:00 DCW (Rec: 01/05/22 17:33 DCW [id number]) Current Condition History of Current Condition Onset Date Long-standing history Current Complaints LE neuropathy, poor balance, gait difficulty, falls History of Current Condition Pt is an 86 year old male presenting with a long- standing history of LE polyneuropathy. Pt notes a general muted sensation in his feet and ankles, and feels like his balance has been worsening, but is unsure if his difficulty comes from his actual neuropathy, or just his leg weakness, which he feels is the main issue. Pt notes that he had back surgery November of last year, the cleaned out between L4-5 and put some contraption in, and following therapy, was receiving therapy at a different clinic. Pt reports that both he and the therapist felt that he had reached a plateau, and they were not seeing much progress, however pt admits that since he stopped PT, he has lost a significant amount of LE strength and stability. Notes increased back pain when standing or walking longer than 15-20 minutes. Has had two recent falls, and another that was a few months ago. Admits that he doesn't really worry about his falls, because they have not yet resulted in an injury, but they seem to occur when he is in the bathroom and he just loses his balance. Uses a 4WW around his house, but finds it hard to get the walker into his car , so he keeps a FWW in the car for use when out. Notes that when he showers, he is unable to feel the water on his left foot because of his neuropathy . PT-OP-C Subjective Start: 01/05/22 17:14 Freq: Status: Active Protocol: Document 05/02/22 13:01 NBM (Rec: 05/02/22 13:48 NBM [id number]) OP-PT Subjective Patient Comments Patient Comments Pt states he wants to improve balance to feel more confident with accessing the pool for aquatic therapy. PT-OP-D Balance Start: 01/05/22 17:14 Freq: Status: Active Protocol: Document 04/05/22 13:45 DCW (Rec: 04/05/22 14:16 DCW [id number]) Balance Tests Ann Balance Test Ann Balance Test Score 12/56 Ann Impairment Rating 60 to 79% Impaired (Score 12- 22) Ann Balance Assessment Evaluation Sitting to Standing Ability Independent w/Hands Unsupported Stance Unable w/out Assistance Sitting Unsupported, Feet on Floor Safely- 2 minutes Standing to Sitting Ability Assist, Control w/Hands Transfer Ability Supervision, Verbal Cues Unsupported Stance- Eyes Closed Falls Without Assistance Unsupported Stance- Eyes Open Assist to attain,<15 secs Reaching Forward Standing Supported, Looses Balance Pick- Up Object From Floor Requires Assistance Look Behind Shoulder - Standing Assist to Prevent Fall Turning 360 Degrees Requires Assistance Unsupported Stance, Alternating Feet on Assist to Prevent Fall Stair Unsupported Tandem Stance Balance Lost- Step/Stand Unilateral Leg Stance Unable,assist to not fall Total Score Ann Total Score (out of 56 points) 12 Ann Impairment Rating 60 to 79% Impaired (Score 12- 22) PT-OP-E Functional Tests Start: 01/05/22 17:14 Freq: Status: Active Protocol: Document 04/05/22 13:45 DCW (Rec: 04/05/22 14:16 DCW [id number]) Functional Tests Timed Up and Go (TUG) Score 25.51 /c FWW Comments 3-trial average: 30.38, 23.10 , 23.06 TUG Impairment Rating 100% Impaired (Score 20) PT-OP-G Mobility & Gait Start: 01/05/22 17:14 Freq: Status: Active Protocol: Document 04/05/22 13:45 DCW (Rec: 04/05/22 14:16 DCW [id number]) OP Gait Assessment Gait Gait Assistance Required: Standby Assistance Assistive Devices Assistive Device Gait Belt,Front Wheeled Walker Gait Deviations General Gait Pattern Decreased Stride Length, Decreased Feet Clearance, Flexed Trunk,Lateral Trunk Lean,Wide Based Gait Factors Limiting Gait Function Factors Limiting Gait Function Decreased Activity Tolerance, Decreased Sensation,Decreased Strength,Poor Balance PT-OP-M Strength Start: 01/05/22 17:36 Freq: Status: Active Protocol: Document 04/05/22 13:45 DCW (Rec: 04/05/22 14:16 DCW [id number]) Hip Strength Hip Manual Muscle Testing Right Flexion (L2) 4+ Good+ Abduction 4 Good Adduction 4+ Good+ External Rotation 4+ Good+ Internal Rotation 4 Good Left Flexion (L2) 4 Good Abduction 4 Good Adduction 4 Good External Rotation 4+ Good+ Internal Rotation 4 Good Knee Strength Knee Manual Muscle Testing Right Flexion (S2) 4 Good Extension (L3) 4+ Good+ Left Flexion (S2) 4 Good Extension (L3) 4+ Good+ Ankle/Foot Strength Ankle and Foot Manual Muscle Testing Right Dorsiflexion (L4) 4- Good- Plantarflexion (S1) 4- Good- Left Dorsiflexion (L4) 3+ Fair+ Plantarflexion (S1) 4- Good- PT-OP-Q Treatments Start: 01/05/22 17:14 Freq: Status: Active Protocol: Document 05/02/22 13:01 NB (Rec: 05/02/22 13:48 [facility] [place] [id number]) Cardio Equipment Recumbent Elliptical (Biodex) Duration (Minutes) 5 Resistance 5 Seat Position 9 Gym Equipment Shuttle Recovery Unilateral Squats Resistance 37# Shuttle Recovery Platform Stable Reps/Time 10x2 Bilateral Squats Resistance 50# Shuttle Recovery Platform Stable Reps/Time x10, cue for R knee alignment Therapeutic Exercises Sitting Exercises Bench Press Sitting Exercise Name Seated T-band bench press Side bilateral Resistance Lv 2 Comments Assist /c floor transfer ability Ankle Flexion Sitting Exercise Name 4-way ankle- DV/PF only today Side bilateral Resistance Lv 2 Reps/Minutes 10x ea Comments cued slow eccentric Standing Exercises Hamstring Curls Standing Exercise Name HS curls Side bilateral Resistance 4# Marching Equipment Used FWW Reps/Minutes 2x10 Extension Standing Exercise Name Hip Extension Side bilateral Reps/Minutes x10 Comments cued for upright posture, DF Abduction Standing Exercise Name Hip Abduction Side bilateral Resistance Red Reps/Minutes x10 Comments vc for slow eccentric Neuro Re-Education Treatment Balance Activities Tandem Stance Details Tandem stance Equipment // bars Comments L back more challenging Foam stance Surface [place] foam Equipment // bars Reps/Duration 3 min Comments EO: occasional PROJECT FINANCE ANALYST, EC: R PROJECT FINANCE ANALYST> 3 finger touch w/ cueing Coordination Activities Walking Equipment gait belt, // bars Reps/Duration 4x10ft Comments PROJECT FINANCE ANALYST x2>x1, CGA>Yanira, cues for upright posture/focal point. Balance greatly improves w/ PROJECT FINANCE ANALYST. PT-OP-T Assessment and Plan Start: 01/05/22 17:14 Freq: Status: Active Protocol: Document 05/02/22 13:01 [facility] [place] (Rec: 05/02/22 13:48 [facility] [place] [id number]) Physical Therapy Assessment Impairments Impairments Activity Tolerance,Balance, Functional Activities, Functional Mobility,Gait, Posture,Strength,Tone, Transfers Other Concerns Fall Risk Yes, per falls history and Ann score (1056) Goals Three Impairment TUG score of 21.14 using a FWW Longterm Goal (LTG) Pt to decrease time taken to perform TUG while using a FWW to <16 seconds in order to demonstrate an improved gait speed. 04/05/22: 25.51 seconds LTG Duration 06/05/22 Two Impairment Pt shows significant falls risk with Ann score of 10/56 Pre Assembly Wirer Goal (LTG) Pt to score at least 10 points higher on the Ann Balance scale with a score of 20/56 in order to demonstrate a decreased falls risk. 04/05/22: 12/56 LTG Duration 06/05/22 One Impairment Pt does not have an appropriate home exercise program Short Term Goal (STG) Pt to be independent and compliant with an appropriate HEP STG Duration Met Assessment Summary Assessment Pt's requires consistent cues for slow eccentric motion with exercises but responds well to verbal cues. Pt's self- awareness of R knee alignment w/ closed chain ex improves throughout treatment session. Walking in // bars requires CGA>min A w/ PROJECT FINANCE ANALYST cues for upright posture/focal point. Balance noticably improves w/ PROJECT FINANCE ANALYST. Pt requires occasional rest breaks. Physical Therapy Plan Frequency and Duration Frequency of Treatment 2x/Week Plan of Care Start Date 04/05/22 Plan of Care End Date 07/04/22 Therapeutic Interventions Therapeutic Interventions Aquatic Therapy,Balance Training,Gait Training,Home Exercise Program,Manual Therapy,Neuromuscular Re- education,Patient/Caregiver Education,Self-Care/Home Management,Soft Tissue Mobilization,Therapeutic Activities,Therapeutic Exercises Next Visit Focus/Plan Next Note Type Treatment Note Next Visit Plan Continue PT per POC for strengthening, transfers, balance, gait training.
--- NOTE | 2022-05-06 15:15 | PT.OTN ---
Current Diagnoses Polyneuropathy, unspecified (05/06/22) Other abnormalities of gait and mobility (05/06/22) Repeated falls (05/06/22) Physical Therapy Treatment Note PT-OP-A Visit Information Start: 01/05/22 17:14 Freq: Status: Active Protocol: Document 05/06/22 14:30 DCW (Rec: 05/06/22 15:15 DCW [id number]) Out-Patient Physical Therapy Visit Information Visit Information Visit Type Treatment Note Visit Start Time 14:30 Visit Stop Time 15:15 Total Visit Minutes 45 Visit Number 25 Number of PLISSE MACHINE OPERATOR Visits 0 Evaluation Information Evaluation Date 01/05/22 PT-OP-B Current Condition Start: 01/05/22 17:14 Freq: Status: Active Protocol: Document 01/05/22 16:00 DCW (Rec: 01/05/22 17:33 DCW [id number]) Current Condition History of Current Condition Onset Date Long-standing history Current Complaints LE neuropathy, poor balance, gait difficulty, falls History of Current Condition Pt is an 86 year old male presenting with a long- standing history of LE polyneuropathy. Pt notes a general muted sensation in his feet and ankles, and feels like his balance has been worsening, but is unsure if his difficulty comes from his actual neuropathy, or just his leg weakness, which he feels is the main issue. Pt notes that he had back surgery November of last year, the cleaned out between L4-5 and put some contraption in, and following therapy, was receiving therapy at a different clinic. Pt reports that both he and the therapist felt that he had reached a plateau, and they were not seeing much progress, however pt admits that since he stopped PT, he has lost a significant amount of LE strength and stability. Notes increased back pain when standing or walking longer than 15-20 minutes. Has had two recent falls, and another that was a few months ago. Admits that he doesn't really worry about his falls, because they have not yet resulted in an injury, but they seem to occur when he is in the bathroom and he just loses his balance. Uses a 4WW around his house, but finds it hard to get the walker into his car , so he keeps a FWW in the car for use when out. Notes that when he showers, he is unable to feel the water on his left foot because of his neuropathy . PT-OP-C Subjective Start: 01/05/22 17:14 Freq: Status: Active Protocol: Document 05/06/22 14:30 DCW (Rec: 05/06/22 15:15 DCW [id number]) OP-PT Subjective Patient Comments Patient Comments Pt feels his strength is slowly improving. PT-OP-D Balance Start: 01/05/22 17:14 Freq: Status: Active Protocol: Document 04/05/22 13:45 DCW (Rec: 04/05/22 14:16 DCW [id number]) Balance Tests Ann Balance Test Ann Balance Test Score 12/56 Ann Impairment Rating 60 to 79% Impaired (Score 12- 22) Ann Balance Assessment Evaluation Sitting to Standing Ability Independent w/Hands Unsupported Stance Unable w/out Assistance Sitting Unsupported, Feet on Floor Safely- 2 minutes Standing to Sitting Ability Assist, Control w/Hands Transfer Ability Supervision, Verbal Cues Unsupported Stance- Eyes Closed Falls Without Assistance Unsupported Stance- Eyes Open Assist to attain,<15 secs Reaching Forward Standing Supported, Looses Balance Pick- Up Object From Floor Requires Assistance Look Behind Shoulder - Standing Assist to Prevent Fall Turning 360 Degrees Requires Assistance Unsupported Stance, Alternating Feet on Assist to Prevent Fall Stair Unsupported Tandem Stance Balance Lost- Step/Stand Unilateral Leg Stance Unable,assist to not fall Total Score Ann Total Score (out of 56 points) 12 Ann Impairment Rating 60 to 79% Impaired (Score 12- 22) PT-OP-E Functional Tests Start: 01/05/22 17:14 Freq: Status: Active Protocol: Document 04/05/22 13:45 DCW (Rec: 04/05/22 14:16 DCW [id number]) Functional Tests Timed Up and Go (TUG) Score 25.51 /c FWW Comments 3-trial average: 30.38, 23.10 , 23.06 TUG Impairment Rating 100% Impaired (Score 20) PT-OP-G Mobility & Gait Start: 01/05/22 17:14 Freq: Status: Active Protocol: Document 04/05/22 13:45 DCW (Rec: 04/05/22 14:16 DCW [id number]) OP Gait Assessment Gait Gait Assistance Required: Standby Assistance Assistive Devices Assistive Device Gait Belt,Front Wheeled Walker Gait Deviations General Gait Pattern Decreased Stride Length, Decreased Feet Clearance, Flexed Trunk,Lateral Trunk Lean,Wide Based Gait Factors Limiting Gait Function Factors Limiting Gait Function Decreased Activity Tolerance, Decreased Sensation,Decreased Strength,Poor Balance PT-OP-M Strength Start: 01/05/22 17:36 Freq: Status: Active Protocol: Document 04/05/22 13:45 DCW (Rec: 04/05/22 14:16 DCW [id number]) Hip Strength Hip Manual Muscle Testing Right Flexion (L2) 4+ Good+ Abduction 4 Good Adduction 4+ Good+ External Rotation 4+ Good+ Internal Rotation 4 Good Left Flexion (L2) 4 Good Abduction 4 Good Adduction 4 Good External Rotation 4+ Good+ Internal Rotation 4 Good Knee Strength Knee Manual Muscle Testing Right Flexion (S2) 4 Good Extension (L3) 4+ Good+ Left Flexion (S2) 4 Good Extension (L3) 4+ Good+ Ankle/Foot Strength Ankle and Foot Manual Muscle Testing Right Dorsiflexion (L4) 4- Good- Plantarflexion (S1) 4- Good- Left Dorsiflexion (L4) 3+ Fair+ Plantarflexion (S1) 4- Good- PT-OP-Q Treatments Start: 01/05/22 17:14 Freq: Status: Active Protocol: Document 05/06/22 14:30 DCW (Rec: 05/06/22 15:15 DCW [id number]) Cardio Equipment Recumbent Elliptical (Biodex) Duration (Minutes) 5 Resistance 5 Seat Position 9 Gym Equipment Shuttle Recovery Unilateral Squats Resistance 37# Shuttle Recovery Platform Stable Reps/Time 10x2 Bilateral Squats Resistance 50# Shuttle Recovery Platform Stable Reps/Time x10, cue for R knee alignment Therapeutic Exercises Sitting Exercises Marching Sitting Exercise Name Seated marching Side bilateral Resistance 4# Reps/Minutes x10 LAQ Sitting Exercise Name LAQ Side bilateral Resistance 4# Reps/Minutes x10 Hamstring Curls Side bilateral Resistance Lv 2 Ankle Flexion Sitting Exercise Name 4-way ankle flexion Side bilateral Resistance Lv 2 Reps/Minutes 10x ea Standing Exercises Heel Raises Standing Exercise Name Heel Raises Side bilateral Extension Standing Exercise Name Hip Extension Side bilateral Reps/Minutes x10 Comments cued for upright posture, DF Abduction Standing Exercise Name Hip Abduction Side bilateral Resistance Red Reps/Minutes x10 Comments vc for slow eccentric Neuro Re-Education Treatment Balance Activities tap ups Details 6 step // bars Equipment 2# Reps/Duration 2x10 WBOS Surface Blue Foam Equipment // bars Comments EO/EC Tandem Stance Details Tandem stance Equipment // bars Comments L back more challenging PT-OP-T Assessment and Plan Start: 01/05/22 17:14 Freq: Status: Active Protocol: Document 05/06/22 14:30 DCW (Rec: 05/06/22 15:15 DCW [id number]) Physical Therapy Assessment Impairments Impairments Activity Tolerance,Balance, Functional Activities, Functional Mobility,Gait, Posture,Strength,Tone, Transfers Other Concerns Fall Risk Yes, per falls history and Ann score () Goals Three Impairment TUG score of 21.14 using a FWW Child Care Education Coordinator Goal (LTG) Pt to decrease time taken to perform TUG while using a FWW to <16 seconds in order to demonstrate an improved gait speed. 04/05/22: 25.51 seconds LTG Duration 06/05/22 Two Impairment Pt shows significant falls risk with Ann score of 10/56 Child Care Education Coordinator Goal (LTG) Pt to score at least 10 points higher on the Ann Balance scale with a score of 20/56 in order to demonstrate a decreased falls risk. 04/05/22: 1256 LTG Duration 06/05/22 One Impairment Pt does not have an appropriate home exercise program Short Term Goal (STG) Pt to be independent and compliant with an appropriate HEP STG Duration Met Assessment Summary Assessment Pt showing some improvement with strength, able to tolerate more activity without rest. Increased left ankle strength. Physical Therapy Plan Frequency and Duration Frequency of Treatment 2x/Week Plan of Care Start Date 04/05/22 Plan of Care End Date 07/04/22 Therapeutic Interventions Therapeutic Interventions Aquatic Therapy,Balance Training,Gait Training,Home Exercise Program,Manual Therapy,Neuromuscular Re- education,Patient/Caregiver Education,Self-Care/Home Management,Soft Tissue Mobilization,Therapeutic Activities,Therapeutic Exercises Next Visit Focus/Plan Next Note Type Treatment Note Next Visit Plan Continue PT per POC for strengthening, transfers, balance, gait training.
--- NOTE | 2022-05-09 16:55 | PT.OTN ---
Current Diagnoses Polyneuropathy, unspecified (05/09/22) Other abnormalities of gait and mobility (05/09/22) Repeated falls (05/09/22) Physical Therapy Treatment Note PT-OP-A Visit Information Start: 01/05/22 17:14 Freq: Status: Active Protocol: Document 05/09/22 13:49 NBM (Rec: 05/09/22 14:33 NBM [id number]) Out-Patient Physical Therapy Visit Information Visit Information Visit Type Treatment Note Visit Start Time 13:49 Visit Stop Time 14:27 Total Visit Minutes 38 Visit Number 26 Number of SCOOTER MECHANIC Visits 1 Evaluation Information Evaluation Date 01/05/22 PT-OP-B Current Condition Start: 01/05/22 17:14 Freq: Status: Active Protocol: Document 01/05/22 16:00 DCW (Rec: 01/05/22 17:33 DCW [id number]) Current Condition History of Current Condition Onset Date Long-standing history Current Complaints LE neuropathy, poor balance, gait difficulty, falls History of Current Condition Pt is an 86 year old male presenting with a long- standing history of LE polyneuropathy. Pt notes a general muted sensation in his feet and ankles, and feels like his balance has been worsening, but is unsure if his difficulty comes from his actual neuropathy, or just his leg weakness, which he feels is the main issue. Pt notes that he had back surgery November of last year, the cleaned out between L4-5 and put some contraption in, and following therapy, was receiving therapy at a different clinic. Pt reports that both he and the therapist felt that he had reached a plateau, and they were not seeing much progress, however pt admits that since he stopped PT, he has lost a significant amount of LE strength and stability. Notes increased back pain when standing or walking longer than 15-20 minutes. Has had two recent falls, and another that was a few months ago. Admits that he doesn't really worry about his falls, because they have not yet resulted in an injury, but they seem to occur when he is in the bathroom and he just loses his balance. Uses a 4WW around his house, but finds it hard to get the walker into his car , so he keeps a FWW in the car for use when out. Notes that when he showers, he is unable to feel the water on his left foot because of his neuropathy . PT-OP-C Subjective Start: 01/05/22 17:14 Freq: Status: Active Protocol: Document 05/09/22 13:49 NBM (Rec: 05/09/22 14:33 NBM [id number]) OP-PT Subjective Patient Comments Patient Comments Pt reports no changes since last visit. PT-OP-D Balance Start: 01/05/22 17:14 Freq: Status: Active Protocol: Document 04/05/22 13:45 DCW (Rec: 04/05/22 14:16 DCW [id number]) Balance Tests Ann Balance Test Ann Balance Test Score 12/56 Ann Impairment Rating 60 to 79% Impaired (Score 12- 22) Ann Balance Assessment Evaluation Sitting to Standing Ability Independent w/Hands Unsupported Stance Unable w/out Assistance Sitting Unsupported, Feet on Floor Safely- 2 minutes Standing to Sitting Ability Assist, Control w/Hands Transfer Ability Supervision, Verbal Cues Unsupported Stance- Eyes Closed Falls Without Assistance Unsupported Stance- Eyes Open Assist to attain,<15 secs Reaching Forward Standing Supported, Looses Balance Pick- Up Object From Floor Requires Assistance Look Behind Shoulder - Standing Assist to Prevent Fall Turning 360 Degrees Requires Assistance Unsupported Stance, Alternating Feet on Assist to Prevent Fall Stair Unsupported Tandem Stance Balance Lost- Step/Stand Unilateral Leg Stance Unable,assist to not fall Total Score Ann Total Score (out of 56 points) 12 Ann Impairment Rating 60 to 79% Impaired (Score 12- 22) PT-OP-E Functional Tests Start: 01/05/22 17:14 Freq: Status: Active Protocol: Document 04/05/22 13:45 DCW (Rec: 04/05/22 14:16 DCW [id number]) Functional Tests Timed Up and Go (TUG) Score 25.51 /c FWW Comments 3-trial average: 30.38, 23.10 , 23.06 TUG Impairment Rating 100% Impaired (Score 20) PT-OP-G Mobility & Gait Start: 01/05/22 17:14 Freq: Status: Active Protocol: Document 04/05/22 13:45 DCW (Rec: 04/05/22 14:16 DCW [id number]) OP Gait Assessment Gait Gait Assistance Required: Standby Assistance Assistive Devices Assistive Device Gait Belt,Front Wheeled Walker Gait Deviations General Gait Pattern Decreased Stride Length, Decreased Feet Clearance, Flexed Trunk,Lateral Trunk Lean,Wide Based Gait Factors Limiting Gait Function Factors Limiting Gait Function Decreased Activity Tolerance, Decreased Sensation,Decreased Strength,Poor Balance PT-OP-M Strength Start: 01/05/22 17:36 Freq: Status: Active Protocol: Document 04/05/22 13:45 DCW (Rec: 04/05/22 14:16 DCW [id number]) Hip Strength Hip Manual Muscle Testing Right Flexion (L2) 4+ Good+ Abduction 4 Good Adduction 4+ Good+ External Rotation 4+ Good+ Internal Rotation 4 Good Left Flexion (L2) 4 Good Abduction 4 Good Adduction 4 Good External Rotation 4+ Good+ Internal Rotation 4 Good Knee Strength Knee Manual Muscle Testing Right Flexion (S2) 4 Good Extension (L3) 4+ Good+ Left Flexion (S2) 4 Good Extension (L3) 4+ Good+ Ankle/Foot Strength Ankle and Foot Manual Muscle Testing Right Dorsiflexion (L4) 4- Good- Plantarflexion (S1) 4- Good- Left Dorsiflexion (L4) 3+ Fair+ Plantarflexion (S1) 4- Good- PT-OP-Q Treatments Start: 01/05/22 17:14 Freq: Status: Active Protocol: Document 05/09/22 13:49 NB (Rec: 05/09/22 14:33 [facility] [id number]) Cardio Equipment Recumbent Elliptical (Biodex) Duration (Minutes) 5 Resistance 5 Seat Position 8 Other vc for knee alignment. Gym Equipment Shuttle Balance Red Details WBOS, weightshifting a/p, m/l Comments weightshifting a/p - Pt unable to get front of board to touch floor anteriorly - cues for upright, no knee bend : anterior weight shift improves but then pt hyperextends back /bends knees. Therapeutic Exercises Sitting Exercises Bench Press Sitting Exercise Name Seated T-band bench press Side bilateral Resistance Lv 2 Comments Assist /c floor transfer ability Marching Sitting Exercise Name changed to seated step taps 6 Side bilateral Comments cues for knees fwd, high knees Neuro Re-Education Treatment Balance Activities tap ups Details 6 step // bars Equipment mirror Reps/Duration 2x10 Comments upright posture, knees alignment WBOS Surface Blue Foam Equipment // bars, mirror Comments EO/EC Tandem Stance Details Tandem stance Equipment // bars, mirror Comments EO/EC PT-OP-T Assessment and Plan Start: 01/05/22 17:14 Freq: Status: Active Protocol: Document 05/09/22 13:49 NB (Rec: 05/09/22 14:33 [facility] [id number]) Physical Therapy Assessment Goals Three Impairment TUG score of 21.14 using a FWW System Validation Engineer Goal (LTG) Pt to decrease time taken to perform TUG while using a FWW to <16 seconds in order to demonstrate an improved gait speed. 04/05/22: 25.51 seconds LTG Duration 06/05/22 Two Impairment Pt shows significant falls risk with Ann score of 10/56 Alf Goal (LTG) Pt to score at least 10 points higher on the Ann Balance scale with a score of 20/56 in order to demonstrate a decreased falls risk. 04/05/22: LTG Duration 06/05/22 One Impairment Pt does not have an appropriate home exercise program Short Term Goal (STG) Pt to be independent and compliant with an appropriate HEP STG Duration Met Assessment Summary Assessment Treatment focus today on balance training and LE stengthening w/ focus on knee alignment and foot clearance. Pt requires cues for knee alignment and high knees for foot clearance w/ seated 6 step staps, L foot catch x2. Pt is challenged w/ anterior weight shift on Shuttle Balance and needs cues for upright posture and straight leg - pt's self-awareness improves w/ initial weight shift but then pt hyperextends back and bends knees. Pt uses less rest breaks today but requests to end session early due to fatigue. Physical Therapy Plan Frequency and Duration Frequency of Treatment 2x/Week Plan of Care Start Date 04/05/22 Plan of Care End Date 07/04/22 Therapeutic Interventions Therapeutic Interventions Aquatic Therapy,Balance Training,Gait Training,Home Exercise Program,Manual Therapy,Neuromuscular Re- education,Patient/Caregiver Education,Self-Care/Home Management,Soft Tissue Mobilization,Therapeutic Activities,Therapeutic Exercises Next Visit Focus/Plan Next Note Type Treatment Note Next Visit Plan Assess response to last tx session. Continue shuttle balance w/ ant. weight shift focus. Continue PT per POC for strengthening, transfers, balance, gait training.
--- NOTE | 2022-05-12 11:16 | PT.OTN ---
Current Diagnoses Polyneuropathy, unspecified (05/12/22) Other abnormalities of gait and mobility (05/12/22) Repeated falls (05/12/22) Physical Therapy Treatment Note PT-OP-A Visit Information Start: 01/05/22 17:14 Freq: Status: Active Protocol: Document 05/12/22 10:30 DCW (Rec: 05/12/22 11:16 DCW [id number]) Out-Patient Physical Therapy Visit Information Visit Information Visit Type Treatment Note Visit Start Time 10:30 Visit Stop Time 11:15 Total Visit Minutes 45 Visit Number 27 Number of CYTOGEN[employer] LABORATORY MANAGER Visits 0 Evaluation Information Evaluation Date 01/05/22 PT-OP-B Current Condition Start: 01/05/22 17:14 Freq: Status: Active Protocol: Document 01/05/22 16:00 DCW (Rec: 01/05/22 17:33 DCW [id number]) Current Condition History of Current Condition Onset Date Long-standing history Current Complaints LE neuropathy, poor balance, gait difficulty, falls History of Current Condition Pt is an 86 year old male presenting with a long- standing history of LE polyneuropathy. Pt notes a general muted sensation in his feet and ankles, and feels like his balance has been worsening, but is unsure if his difficulty comes from his actual neuropathy, or just his leg weakness, which he feels is the main issue. Pt notes that he had back surgery November of last year, the cleaned out between L4-5 and put some contraption in, and following therapy, was receiving therapy at a different clinic. Pt reports that both he and the therapist felt that he had reached a plateau, and they were not seeing much progress, however pt admits that since he stopped PT, he has lost a significant amount of LE strength and stability. Notes increased back pain when standing or walking longer than 15-20 minutes. Has had two recent falls, and another that was a few months ago. Admits that he doesn't really worry about his falls, because they have not yet resulted in an injury, but they seem to occur when he is in the bathroom and he just loses his balance. Uses a 4WW around his house, but finds it hard to get the walker into his car , so he keeps a FWW in the car for use when out. Notes that when he showers, he is unable to feel the water on his left foot because of his neuropathy . PT-OP-C Subjective Start: 01/05/22 17:14 Freq: Status: Active Protocol: Document 05/12/22 10:30 DCW (Rec: 05/12/22 11:16 DCW [id number]) OP-PT Subjective Patient Comments Patient Comments Pt reports he has a follow-up visit with his neurologist next week. PT-OP-D Balance Start: 01/05/22 17:14 Freq: Status: Active Protocol: Document 04/05/22 13:45 DCW (Rec: 04/05/22 14:16 DCW [id number]) Balance Tests Ann Balance Test Ann Balance Test Score 12/56 Ann Impairment Rating 60 to 79% Impaired (Score 12- 22) Ann Balance Assessment Evaluation Sitting to Standing Ability Independent w/Hands Unsupported Stance Unable w/out Assistance Sitting Unsupported, Feet on Floor Safely- 2 minutes Standing to Sitting Ability Assist, Control w/Hands Transfer Ability Supervision, Verbal Cues Unsupported Stance- Eyes Closed Falls Without Assistance Unsupported Stance- Eyes Open Assist to attain,<15 secs Reaching Forward Standing Supported, Looses Balance Pick- Up Object From Floor Requires Assistance Look Behind Shoulder - Standing Assist to Prevent Fall Turning 360 Degrees Requires Assistance Unsupported Stance, Alternating Feet on Assist to Prevent Fall Stair Unsupported Tandem Stance Balance Lost- Step/Stand Unilateral Leg Stance Unable,assist to not fall Total Score Ann Total Score (out of 56 points) 12 Ann Impairment Rating 60 to 79% Impaired (Score 12- 22) PT-OP-E Functional Tests Start: 01/05/22 17:14 Freq: Status: Active Protocol: Document 04/05/22 13:45 DCW (Rec: 04/05/22 14:16 DCW [id number]) Functional Tests Timed Up and Go (TUG) Score 25.51 /c FWW Comments 3-trial average: 30.38, 23.10 , 23.06 TUG Impairment Rating 100% Impaired (Score 20) PT-OP-G Mobility & Gait Start: 01/05/22 17:14 Freq: Status: Active Protocol: Document 04/05/22 13:45 DCW (Rec: 04/05/22 14:16 DCW [id number]) OP Gait Assessment Gait Gait Assistance Required: Standby Assistance Assistive Devices Assistive Device Gait Belt,Front Wheeled Walker Gait Deviations General Gait Pattern Decreased Stride Length, Decreased Feet Clearance, Flexed Trunk,Lateral Trunk Lean,Wide Based Gait Factors Limiting Gait Function Factors Limiting Gait Function Decreased Activity Tolerance, Decreased Sensation,Decreased Strength,Poor Balance PT-OP-M Strength Start: 01/05/22 17:36 Freq: Status: Active Protocol: Document 04/05/22 13:45 DCW (Rec: 04/05/22 14:16 DCW [id number]) Hip Strength Hip Manual Muscle Testing Right Flexion (L2) 4+ Good+ Abduction 4 Good Adduction 4+ Good+ External Rotation 4+ Good+ Internal Rotation 4 Good Left Flexion (L2) 4 Good Abduction 4 Good Adduction 4 Good External Rotation 4+ Good+ Internal Rotation 4 Good Knee Strength Knee Manual Muscle Testing Right Flexion (S2) 4 Good Extension (L3) 4+ Good+ Left Flexion (S2) 4 Good Extension (L3) 4+ Good+ Ankle/Foot Strength Ankle and Foot Manual Muscle Testing Right Dorsiflexion (L4) 4- Good- Plantarflexion (S1) 4- Good- Left Dorsiflexion (L4) 3+ Fair+ Plantarflexion (S1) 4- Good- PT-OP-Q Treatments Start: 01/05/22 17:14 Freq: Status: Active Protocol: Document 05/12/22 10:30 DCW (Rec: 05/12/22 11:16 DCW [id number]) Cardio Equipment Recumbent Stepper (Sci-Fit) Duration (Minutes) 5 Resistance 3 Seat Position 12 Gym Equipment Shuttle Recovery Unilateral Squats Resistance 37# Shuttle Recovery Platform Stable Reps/Time 10x2 Bilateral Squats Resistance 50# Shuttle Recovery Platform Stable Reps/Time x10, cue for R knee alignment Therapeutic Exercises Sitting Exercises LAQ Sitting Exercise Name LAQ Side bilateral Resistance 5# Reps/Minutes x10 Hamstring Curls Side bilateral Resistance Lv 2 Ankle Flexion Sitting Exercise Name 4-way ankle flexion Side bilateral Resistance Lv 2 Reps/Minutes 10x ea Standing Exercises Marching Side bilateral Resistance 5# Equipment Used // bars Reps/Minutes 2x10 Extension Standing Exercise Name Hip Extension Side bilateral Resistance Red Reps/Minutes x10 Comments cued for upright posture, DF Abduction Standing Exercise Name Hip Abduction Side bilateral Resistance Red Reps/Minutes x10 Comments vc for slow eccentric Other Exercises Wall push-ups Other Exercise Name Wall push-ups Comments help with floor transfers Neuro Re-Education Treatment Balance Activities Tandem Stance Details Tandem stance Equipment // bars, mirror Comments EO/EC PT-OP-T Assessment and Plan Start: 01/05/22 17:14 Freq: Status: Active Protocol: Document 05/12/22 10:30 DCW (Rec: 05/12/22 11:16 DCW [id number]) Physical Therapy Assessment Impairments Impairments Activity Tolerance,Balance, Functional Activities, Functional Mobility,Gait, Posture,Strength,Tone, Transfers Other Concerns Fall Risk Yes, per falls history and Ann score () Goals Three Impairment TUG score of 21.14 using a FWW Microsoft Access Developer Goal (LTG) Pt to decrease time taken to perform TUG while using a FWW to <16 seconds in order to demonstrate an improved gait speed. 04/05/22: 25.51 seconds LTG Duration 06/05/22 Two Impairment Pt shows significant falls risk with Ann score of 10/56 Chcf Goal (LTG) Pt to score at least 10 points higher on the Ann Balance scale with a score of 20/56 in order to demonstrate a decreased falls risk. 04/05/22: LTG Duration 06/05/22 One Impairment Pt does not have an appropriate home exercise program Short Term Goal (STG) Pt to be independent and compliant with an appropriate HEP STG Duration Met Assessment Summary Assessment Pt showing some improvement with balance challenges and strengthening, still mainly limited by right ankle weakness. Requiring fewer verbal cues for LE alignment, although still struggles with sit<->stand positioning and strength. Physical Therapy Plan Frequency and Duration Frequency of Treatment 2x/Week Plan of Care Start Date 04/05/22 Plan of Care End Date 07/04/22 Therapeutic Interventions Therapeutic Interventions Aquatic Therapy,Balance Training,Gait Training,Home Exercise Program,Manual Therapy,Neuromuscular Re- education,Patient/Caregiver Education,Self-Care/Home Management,Soft Tissue Mobilization,Therapeutic Activities,Therapeutic Exercises Next Visit Focus/Plan Next Note Type Treatment Note Next Visit Plan Assess response to last tx session. Continue shuttle balance w/ ant. weight shift focus. Continue PT per POC for strengthening, transfers, balance, gait training.
--- NOTE | 2022-05-17 11:15 | PT.OTN ---
Current Diagnoses Polyneuropathy, unspecified (05/17/22) Other abnormalities of gait and mobility (05/17/22) Repeated falls (05/17/22) Physical Therapy Treatment Note PT-OP-A Visit Information Start: 01/05/22 17:14 Freq: Status: Active Protocol: Document 05/17/22 10:32 SP (Rec: 05/17/22 11:26 SP [id number]) Out-Patient Physical Therapy Visit Information Visit Information Visit Type Treatment Note Visit Start Time 10:32 Visit Stop Time 11:15 Total Visit Minutes 43 Visit Number 28 Number of COPPER PLATE PRINTER Visits 1 PT-OP-B Current Condition Start: 01/05/22 17:14 Freq: Status: Active Protocol: Document 01/05/22 16:00 DCW (Rec: 01/05/22 17:33 DCW [id number]) Current Condition History of Current Condition Onset Date Long-standing history Current Complaints LE neuropathy, poor balance, gait difficulty, falls History of Current Condition Pt is an 86 year old male presenting with a long- standing history of LE polyneuropathy. Pt notes a general muted sensation in his feet and ankles, and feels like his balance has been worsening, but is unsure if his difficulty comes from his actual neuropathy, or just his leg weakness, which he feels is the main issue. Pt notes that he had back surgery November of last year, the cleaned out between L4-5 and put some contraption in, and following therapy, was receiving therapy at a different clinic. Pt reports that both he and the therapist felt that he had reached a plateau, and they were not seeing much progress, however pt admits that since he stopped PT, he has lost a significant amount of LE strength and stability. Notes increased back pain when standing or walking longer than 15-20 minutes. Has had two recent falls, and another that was a few months ago. Admits that he doesn't really worry about his falls, because they have not yet resulted in an injury, but they seem to occur when he is in the bathroom and he just loses his balance. Uses a 4WW around his house, but finds it hard to get the walker into his car , so he keeps a FWW in the car for use when out. Notes that when he showers, he is unable to feel the water on his left foot because of his neuropathy . PT-OP-C Subjective Start: 01/05/22 17:14 Freq: Status: Active Protocol: Document 05/17/22 10:32 SP (Rec: 05/17/22 11:26 SP [id number]) OP-PT Subjective Patient Comments Patient Comments Pt states always sore in anterior and posterior thighs all the time whether post PT or not and more when getting out of bed. PT-OP-D Balance Start: 01/05/22 17:14 Freq: Status: Active Protocol: Document 04/05/22 13:45 DCW (Rec: 04/05/22 14:16 DCW [id number]) Balance Tests Ann Balance Test Ann Balance Test Score 12/56 Ann Impairment Rating 60 to 79% Impaired (Score 12- 22) Ann Balance Assessment Evaluation Sitting to Standing Ability Independent w/Hands Unsupported Stance Unable w/out Assistance Sitting Unsupported, Feet on Floor Safely- 2 minutes Standing to Sitting Ability Assist, Control w/Hands Transfer Ability Supervision, Verbal Cues Unsupported Stance- Eyes Closed Falls Without Assistance Unsupported Stance- Eyes Open Assist to attain,<15 secs Reaching Forward Standing Supported, Looses Balance Pick- Up Object From Floor Requires Assistance Look Behind Shoulder - Standing Assist to Prevent Fall Turning 360 Degrees Requires Assistance Unsupported Stance, Alternating Feet on Assist to Prevent Fall Stair Unsupported Tandem Stance Balance Lost- Step/Stand Unilateral Leg Stance Unable,assist to not fall Total Score Ann Total Score (out of 56 points) 12 Ann Impairment Rating 60 to 79% Impaired (Score 12- 22) PT-OP-E Functional Tests Start: 01/05/22 17:14 Freq: Status: Active Protocol: Document 04/05/22 13:45 DCW (Rec: 04/05/22 14:16 DCW [id number]) Functional Tests Timed Up and Go (TUG) Score 25.51 /c FWW Comments 3-trial average: 30.38, 23.10 , 23.06 TUG Impairment Rating 100% Impaired (Score 20) PT-OP-G Mobility & Gait Start: 01/05/22 17:14 Freq: Status: Active Protocol: Document 04/05/22 13:45 DCW (Rec: 04/05/22 14:16 DCW [id number]) OP Gait Assessment Gait Gait Assistance Required: Standby Assistance Assistive Devices Assistive Device Gait Belt,Front Wheeled Walker Gait Deviations General Gait Pattern Decreased Stride Length, Decreased Feet Clearance, Flexed Trunk,Lateral Trunk Lean,Wide Based Gait Factors Limiting Gait Function Factors Limiting Gait Function Decreased Activity Tolerance, Decreased Sensation,Decreased Strength,Poor Balance PT-OP-M Strength Start: 01/05/22 17:36 Freq: Status: Active Protocol: Document 04/05/22 13:45 DCW (Rec: 04/05/22 14:16 DCW [id number]) Hip Strength Hip Manual Muscle Testing Right Flexion (L2) 4+ Good+ Abduction 4 Good Adduction 4+ Good+ External Rotation 4+ Good+ Internal Rotation 4 Good Left Flexion (L2) 4 Good Abduction 4 Good Adduction 4 Good External Rotation 4+ Good+ Internal Rotation 4 Good Knee Strength Knee Manual Muscle Testing Right Flexion (S2) 4 Good Extension (L3) 4+ Good+ Left Flexion (S2) 4 Good Extension (L3) 4+ Good+ Ankle/Foot Strength Ankle and Foot Manual Muscle Testing Right Dorsiflexion (L4) 4- Good- Plantarflexion (S1) 4- Good- Left Dorsiflexion (L4) 3+ Fair+ Plantarflexion (S1) 4- Good- PT-OP-Q Treatments Start: 01/05/22 17:14 Freq: Status: Active Protocol: Document 05/17/22 10:32 SP (Rec: 05/17/22 11:26 SP [id number]) Cardio Equipment Recumbent Stepper (Sci-Fit) Duration (Minutes) 5 Resistance 5 Seat Position 10 Other 42 RPM, UEs/ LEs Gym Equipment Shuttle Recovery Unilateral Squats Resistance 37#>25# BLE Shuttle Recovery Platform Stable Reps/Time 10x2 Bilateral Squats Resistance 50# Shuttle Recovery Platform Stable Reps/Time x10, cue for R knee alignment Therapeutic Exercises Sitting Exercises hip abd Resistance GTB Reps/Minutes 2x10 Comments good form self STMs Sitting Exercise Name added rolling pin: quad, HS, adductor, ITB, calf Side bilateral Reps/Minutes 3 min total Comments good feedback LAQ Sitting Exercise Name LAQ Side bilateral Resistance 4# (5# unavailable) Reps/Minutes 2x7, 1 sec pause hold Comments good form Standing Exercises Heel Raises Standing Exercise Name Heel Raises Side bilateral Equipment Used FWW Reps/Minutes unable end tx due to tiring. Other Exercises Wall push-ups Other Exercise Name Wall push-ups (help with floor transfers) Resistance AROM Equipment Used feet 20 away from wall, hands eye level Reps/Minutes 10 reps, 5 reps Comments cue no UT recruitment Neuro Re-Education Treatment Balance Activities tap ups Details rail Surface 4# leg wt Equipment rail on L Reps/Duration 2x10 Comments upright posture, knees alignment Tandem Stance Details Tandem stance Surface 50% A COPPER PLATE PRINTER or 1 UE Equipment // bars, mirror Comments EO cued posturing, pelvis underneath him, wt shift into = LEs, tends lean into RLE more each position PT-OP-T Assessment and Plan Start: 01/05/22 17:14 Freq: Status: Active Protocol: Document 05/17/22 10:32 SP (Rec: 05/17/22 11:26 SP [id number]) Physical Therapy Assessment Goals Three Impairment TUG score of 21.14 using a FWW Slurry Control Operator Helper Goal (LTG) Pt to decrease time taken to perform TUG while using a FWW to <16 seconds in order to demonstrate an improved gait speed. 04/05/22: 25.51 seconds LTG Duration 06/05/22 Two Impairment Pt shows significant falls risk with Ann score of 10/56 Half-Way Goal (LTG) Pt to score at least 10 points higher on the Ann Balance scale with a score of 20/56 in order to demonstrate a decreased falls risk. 04/05/22: 12/56 LTG Duration 06/05/22 One Impairment Pt does not have an appropriate home exercise program Short Term Goal (STG) Pt to be independent and compliant with an appropriate HEP STG Duration Met Assessment Summary Assessment Pt able to complete step taps with 4# leg wt L HR but tires quickly. Pt requires rest between activities for recovery.Ask if rolling pin at home helped. Physical Therapy Plan Frequency and Duration Frequency of Treatment 2x/Week Plan of Care Start Date 04/05/22 Plan of Care End Date 07/04/22 Therapeutic Interventions Therapeutic Interventions Aquatic Therapy,Balance Training,Gait Training,Home Exercise Program,Manual Therapy,Neuromuscular Re- education,Patient/Caregiver Education,Self-Care/Home Management,Soft Tissue Mobilization,Therapeutic Activities,Therapeutic Exercises Next Visit Focus/Plan Next Note Type Treatment Note Next Visit Plan Ask how felt last tx. Next tx: balance activities before machines due to tires quickly. POC: Continue shuttle balance w/ ant. weight shift focus. Continue PT per POC for strengthening, transfers, balance, gait training.
--- NOTE | 2022-05-24 13:00 | PT.OTN ---
Current Diagnoses Polyneuropathy, unspecified (05/24/22) Other abnormalities of gait and mobility (05/24/22) Repeated falls (05/24/22) Physical Therapy Treatment Note PT-OP-A Visit Information Start: 01/05/22 17:14 Freq: Status: Active Protocol: Document 05/24/22 12:18 SP (Rec: 05/24/22 13:07 SP [id number]) Out-Patient Physical Therapy Visit Information Visit Information Visit Type Treatment Note Visit Note DAMIEN Morales provided ther ex instruction to pt under direct supervision and guidence of [employer]IST Safia throughout tx. Visit Start Time 12:18 Visit Stop Time 13:00 Total Visit Minutes 42 Visit Number 29 Number of [employer] MARKETING SPECIALIST Visits 2 Evaluation Information Evaluation Date 01/05/22 PT-OP-B Current Condition Start: 01/05/22 17:14 Freq: Status: Active Protocol: Document 01/05/22 16:00 DCW (Rec: 01/05/22 17:33 DCW [id number]) Current Condition History of Current Condition Onset Date Long-standing history Current Complaints LE neuropathy, poor balance, gait difficulty, falls History of Current Condition Pt is an 86 year old male presenting with a long- standing history of LE polyneuropathy. Pt notes a general muted sensation in his feet and ankles, and feels like his balance has been worsening, but is unsure if his difficulty comes from his actual neuropathy, or just his leg weakness, which he feels is the main issue. Pt notes that he had back surgery November of last year, the cleaned out between L4-5 and put some contraption in, and following therapy, was receiving therapy at a different clinic. Pt reports that both he and the therapist felt that he had reached a plateau, and they were not seeing much progress, however pt admits that since he stopped PT, he has lost a significant amount of LE strength and stability. Notes increased back pain when standing or walking longer than 15-20 minutes. Has had two recent falls, and another that was a few months ago. Admits that he doesn't really worry about his falls, because they have not yet resulted in an injury, but they seem to occur when he is in the bathroom and he just loses his balance. Uses a 4WW around his house, but finds it hard to get the walker into his car , so he keeps a FWW in the car for use when out. Notes that when he showers, he is unable to feel the water on his left foot because of his neuropathy . PT-OP-C Subjective Start: 01/05/22 17:14 Freq: Status: Active Protocol: Document 05/24/22 12:18 SP (Rec: 05/24/22 13:07 SP [id number]) OP-PT Subjective Patient Comments Patient Comments Pt reported his HEP is getting easy. Occasional adding another rep. He is stated his balance hasn't gotten better. He had appt with neurologist last week stated balance could be factor due to neuropathy. Is aware could be surgery but heard is is painful and some not significant improvement. PT-OP-D Balance Start: 01/05/22 17:14 Freq: Status: Active Protocol: Document 04/05/22 13:45 DCW (Rec: 04/05/22 14:16 DCW [id number]) Balance Tests Ann Balance Test Ann Balance Test Score 12/56 Ann Impairment Rating 60 to 79% Impaired (Score 12- 22) Ann Balance Assessment Evaluation Sitting to Standing Ability Independent w/Hands Unsupported Stance Unable w/out Assistance Sitting Unsupported, Feet on Floor Safely- 2 minutes Standing to Sitting Ability Assist, Control w/Hands Transfer Ability Supervision, Verbal Cues Unsupported Stance- Eyes Closed Falls Without Assistance Unsupported Stance- Eyes Open Assist to attain,<15 secs Reaching Forward Standing Supported, Looses Balance Pick- Up Object From Floor Requires Assistance Look Behind Shoulder - Standing Assist to Prevent Fall Turning 360 Degrees Requires Assistance Unsupported Stance, Alternating Feet on Assist to Prevent Fall Stair Unsupported Tandem Stance Balance Lost- Step/Stand Unilateral Leg Stance Unable,assist to not fall Total Score Ann Total Score (out of 56 points) 12 Ann Impairment Rating 60 to 79% Impaired (Score 12- 22) PT-OP-E Functional Tests Start: 01/05/22 17:14 Freq: Status: Active Protocol: Document 04/05/22 13:45 DCW (Rec: 04/05/22 14:16 DCW [id number]) Functional Tests Timed Up and Go (TUG) Score 25.51 /c FWW Comments 3-trial average: 30.38, 23.10 , 23.06 TUG Impairment Rating 100% Impaired (Score 20) PT-OP-G Mobility & Gait Start: 01/05/22 17:14 Freq: Status: Active Protocol: Document 04/05/22 13:45 DCW (Rec: 04/05/22 14:16 DCW [id number]) OP Gait Assessment Gait Gait Assistance Required: Standby Assistance Assistive Devices Assistive Device Gait Belt,Front Wheeled Walker Gait Deviations General Gait Pattern Decreased Stride Length, Decreased Feet Clearance, Flexed Trunk,Lateral Trunk Lean,Wide Based Gait Factors Limiting Gait Function Factors Limiting Gait Function Decreased Activity Tolerance, Decreased Sensation,Decreased Strength,Poor Balance PT-OP-M Strength Start: 01/05/22 17:36 Freq: Status: Active Protocol: Document 04/05/22 13:45 DCW (Rec: 04/05/22 14:16 DCW [id number]) Hip Strength Hip Manual Muscle Testing Right Flexion (L2) 4+ Good+ Abduction 4 Good Adduction 4+ Good+ External Rotation 4+ Good+ Internal Rotation 4 Good Left Flexion (L2) 4 Good Abduction 4 Good Adduction 4 Good External Rotation 4+ Good+ Internal Rotation 4 Good Knee Strength Knee Manual Muscle Testing Right Flexion (S2) 4 Good Extension (L3) 4+ Good+ Left Flexion (S2) 4 Good Extension (L3) 4+ Good+ Ankle/Foot Strength Ankle and Foot Manual Muscle Testing Right Dorsiflexion (L4) 4- Good- Plantarflexion (S1) 4- Good- Left Dorsiflexion (L4) 3+ Fair+ Plantarflexion (S1) 4- Good- PT-OP-Q Treatments Start: 01/05/22 17:14 Freq: Status: Active Protocol: Document 05/24/22 12:18 SP (Rec: 05/24/22 13:07 SP [id number]) Cardio Equipment Recumbent Stepper (Sci-Fit) Duration (Minutes) 5 Resistance 5 Seat Position 1 Other 42 RPM, UEs/ LEs Gym Equipment Shuttle Recovery Bilateral Heel Raises Resistance 50# Shuttle Recovery Platform Stable Reps/Time 2x10 Unilateral Squats Resistance 37# RLE, 12# LLE Shuttle Recovery Platform Stable Reps/Time 10x2 Shuttle Balance Red Details red to challenging so use Blue Comments pt retro leaning Mod A due to unable come into DF and anterior TYREL without difficult quad fac so stopped. Therapeutic Exercises Sitting Exercises sit to stand Equipment Used needs use 1 UE support Reps/Minutes 2 reps Comments fatigued, needs mod verbal and tactile cues for set up and performance Ankle Flexion Sitting Exercise Name 4-way ankle flexion Side bilateral Resistance Lv 1 TB Reps/Minutes 10x ea Comments max cues for set up and direction, improved able do opp LE PT-OP-T Assessment and Plan Start: 01/05/22 17:14 Freq: Status: Active Protocol: Document 05/24/22 12:18 SP (Rec: 05/24/22 13:07 SP [id number]) Physical Therapy Assessment Goals Three Impairment TUG score of 21.14 using a FWW Correction Goal (LTG) Pt to decrease time taken to perform TUG while using a FWW to <16 seconds in order to demonstrate an improved gait speed. 04/05/22: 25.51 seconds LTG Duration 06/05/22 Two Impairment Pt shows significant falls risk with Ann score of 10/56 Food And Nutrition Services Supervisor Goal (LTG) Pt to score at least 10 points higher on the Ann Balance scale with a score of 20/56 in order to demonstrate a decreased falls risk. 04/05/22: 12 LTG Duration 06/05/22 One Impairment Pt does not have an appropriate home exercise program Short Term Goal (STG) Pt to be independent and compliant with an appropriate HEP STG Duration Met Assessment Summary Assessment Pt tired quickly after cardio and shuttle recovery very challenged shuttle balance. noted Ankle weakness so provided TB and HO after review for carry over at home, better understanding and set up . Physical Therapy Plan Frequency and Duration Frequency of Treatment 2x/Week Plan of Care Start Date 04/05/22 Plan of Care End Date 05/24/22 Therapeutic Interventions Therapeutic Interventions Aquatic Therapy,Balance Training,Gait Training,Home Exercise Program,Manual Therapy,Neuromuscular Re- education,Patient/Caregiver Education,Self-Care/Home Management,Soft Tissue Mobilization,Therapeutic Activities,Therapeutic Exercises Next Visit Focus/Plan Next Note Type Treatment Note Next Visit Plan recheck TB ANKLE Next tx: balance activities before machines due to tires quickly. POC: Continue shuttle balance w/ ant. weight shift focus. Continue PT per POC for strengthening, transfers, balance, gait training.
--- NOTE | 2022-05-26 11:16 | PT.OTN ---
Current Diagnoses Polyneuropathy, unspecified (05/26/22) Other abnormalities of gait and mobility (05/26/22) Repeated falls (05/26/22) Physical Therapy Treatment Note PT-OP-A Visit Information Start: 01/05/22 17:14 Freq: Status: Active Protocol: Document 05/26/22 10:30 DCW (Rec: 05/26/22 11:16 DCW [id number]) Out-Patient Physical Therapy Visit Information Visit Information Visit Type Treatment Note Visit Start Time 10:30 Visit Stop Time 11:15 Total Visit Minutes 45 Visit Number 30 Number of OUTSOLE PARAFFINER Visits 0 Evaluation Information Evaluation Date 01/05/22 PT-OP-B Current Condition Start: 01/05/22 17:14 Freq: Status: Active Protocol: Document 01/05/22 16:00 DCW (Rec: 01/05/22 17:33 DCW [id number]) Current Condition History of Current Condition Onset Date Long-standing history Current Complaints LE neuropathy, poor balance, gait difficulty, falls History of Current Condition Pt is an 86 year old male presenting with a long- standing history of LE polyneuropathy. Pt notes a general muted sensation in his feet and ankles, and feels like his balance has been worsening, but is unsure if his difficulty comes from his actual neuropathy, or just his leg weakness, which he feels is the main issue. Pt notes that he had back surgery November of last year, the cleaned out between L4-5 and put some contraption in, and following therapy, was receiving therapy at a different clinic. Pt reports that both he and the therapist felt that he had reached a plateau, and they were not seeing much progress, however pt admits that since he stopped PT, he has lost a significant amount of LE strength and stability. Notes increased back pain when standing or walking longer than 15-20 minutes. Has had two recent falls, and another that was a few months ago. Admits that he doesn't really worry about his falls, because they have not yet resulted in an injury, but they seem to occur when he is in the bathroom and he just loses his balance. Uses a 4WW around his house, but finds it hard to get the walker into his car , so he keeps a FWW in the car for use when out. Notes that when he showers, he is unable to feel the water on his left foot because of his neuropathy . PT-OP-C Subjective Start: 01/05/22 17:14 Freq: Status: Active Protocol: Document 05/26/22 10:30 DCW (Rec: 05/26/22 11:16 DCW [id number]) OP-PT Subjective Patient Comments Patient Comments Pt is interested in performing a reassessment next visit to determine if he is making expected progress. PT-OP-D Balance Start: 01/05/22 17:14 Freq: Status: Active Protocol: Document 04/05/22 13:45 DCW (Rec: 04/05/22 14:16 DCW [id number]) Balance Tests Ann Balance Test Ann Balance Test Score 12/56 Ann Impairment Rating 60 to 79% Impaired (Score 12- 22) Ann Balance Assessment Evaluation Sitting to Standing Ability Independent w/Hands Unsupported Stance Unable w/out Assistance Sitting Unsupported, Feet on Floor Safely- 2 minutes Standing to Sitting Ability Assist, Control w/Hands Transfer Ability Supervision, Verbal Cues Unsupported Stance- Eyes Closed Falls Without Assistance Unsupported Stance- Eyes Open Assist to attain,<15 secs Reaching Forward Standing Supported, Looses Balance Pick- Up Object From Floor Requires Assistance Look Behind Shoulder - Standing Assist to Prevent Fall Turning 360 Degrees Requires Assistance Unsupported Stance, Alternating Feet on Assist to Prevent Fall Stair Unsupported Tandem Stance Balance Lost- Step/Stand Unilateral Leg Stance Unable,assist to not fall Total Score Ann Total Score (out of 56 points) 12 Ann Impairment Rating 60 to 79% Impaired (Score 12- 22) PT-OP-E Functional Tests Start: 01/05/22 17:14 Freq: Status: Active Protocol: Document 04/05/22 13:45 DCW (Rec: 04/05/22 14:16 DCW [id number]) Functional Tests Timed Up and Go (TUG) Score 25.51 /c FWW Comments 3-trial average: 30.38, 23.10 , 23.06 TUG Impairment Rating 100% Impaired (Score 20) PT-OP-G Mobility & Gait Start: 01/05/22 17:14 Freq: Status: Active Protocol: Document 04/05/22 13:45 DCW (Rec: 04/05/22 14:16 DCW [id number]) OP Gait Assessment Gait Gait Assistance Required: Standby Assistance Assistive Devices Assistive Device Gait Belt,Front Wheeled Walker Gait Deviations General Gait Pattern Decreased Stride Length, Decreased Feet Clearance, Flexed Trunk,Lateral Trunk Lean,Wide Based Gait Factors Limiting Gait Function Factors Limiting Gait Function Decreased Activity Tolerance, Decreased Sensation,Decreased Strength,Poor Balance PT-OP-M Strength Start: 01/05/22 17:36 Freq: Status: Active Protocol: Document 04/05/22 13:45 DCW (Rec: 04/05/22 14:16 DCW [id number]) Hip Strength Hip Manual Muscle Testing Right Flexion (L2) 4+ Good+ Abduction 4 Good Adduction 4+ Good+ External Rotation 4+ Good+ Internal Rotation 4 Good Left Flexion (L2) 4 Good Abduction 4 Good Adduction 4 Good External Rotation 4+ Good+ Internal Rotation 4 Good Knee Strength Knee Manual Muscle Testing Right Flexion (S2) 4 Good Extension (L3) 4+ Good+ Left Flexion (S2) 4 Good Extension (L3) 4+ Good+ Ankle/Foot Strength Ankle and Foot Manual Muscle Testing Right Dorsiflexion (L4) 4- Good- Plantarflexion (S1) 4- Good- Left Dorsiflexion (L4) 3+ Fair+ Plantarflexion (S1) 4- Good- PT-OP-Q Treatments Start: 01/05/22 17:14 Freq: Status: Active Protocol: Document 05/26/22 10:30 DCW (Rec: 05/26/22 11:16 DCW [id number]) Gym Equipment Shuttle Recovery Unilateral Squats Resistance 25# Shuttle Recovery Platform Stable Bilateral Squats Resistance 50# Shuttle Recovery Platform Stable Reps/Time x10, cue for R knee alignment Therapeutic Exercises Sitting Exercises Ankle Flexion Sitting Exercise Name 4-way ankle flexion Side bilateral Resistance Lv 2 Reps/Minutes 10x ea Comments max cues for set up and direction, improved able do opp LE Neuro Re-Education Treatment Balance Activities Tilt board Details Tilt board A/P, Lateral Comments EO/EC SLS Details SLS Equipment // bars Tandem Stance Details Tandem stance Surface 50% assist 1 UE Equipment // bars, mirror Comments EO cued posturing, pelvis underneath him, wt shift into = LEs, tends lean into RLE more each position PT-OP-T Assessment and Plan Start: 01/05/22 17:14 Freq: Status: Active Protocol: Document 05/26/22 10:30 DCW (Rec: 05/26/22 11:16 DCW [id number]) Physical Therapy Assessment Goals Three Impairment TUG score of 21.14 using a FWW Manager Animation Goal (LTG) Pt to decrease time taken to perform TUG while using a FWW to <16 seconds in order to demonstrate an improved gait speed. 04/05/22: 25.51 seconds LTG Duration 06/05/22 Two Impairment Pt shows significant falls risk with Ann score of 10/56 Usp Goal (LTG) Pt to score at least 10 points higher on the Ann Balance scale with a score of 20/56 in order to demonstrate a decreased falls risk. 04/05/22: 1256 LTG Duration 06/05/22 One Impairment Pt does not have an appropriate home exercise program Short Term Goal (STG) Pt to be independent and compliant with an appropriate HEP STG Duration Met Assessment Summary Assessment Pt continues to fatigue with almost all activities. Pt would like to do reassessment next visit in order to determine if he is making enough progress. Physical Therapy Plan Frequency and Duration Frequency of Treatment 2x/Week Plan of Care Start Date 04/05/22 Plan of Care End Date 07/04/22 Therapeutic Interventions Therapeutic Interventions Aquatic Therapy,Balance Training,Gait Training,Home Exercise Program,Manual Therapy,Neuromuscular Re- education,Patient/Caregiver Education,Self-Care/Home Management,Soft Tissue Mobilization,Therapeutic Activities,Therapeutic Exercises Next Visit Focus/Plan Next Note Type Progress Note Next Visit Plan Next tx: balance activities before machines due to tires quickly. POC: Continue shuttle balance w/ ant. weight shift focus. Continue PT per POC for strengthening, transfers, balance, gait training.
--- NOTE | 2022-05-31 17:48 | PT.OTN ---
Current Diagnoses Polyneuropathy, unspecified (05/31/22) Other abnormalities of gait and mobility (05/31/22) Repeated falls (05/31/22) Physical Therapy Treatment Note PT-OP-A Visit Information Start: 01/05/22 17:14 Freq: Status: Active Protocol: Document 05/31/22 16:45 DCW (Rec: 05/31/22 17:43 DCW [id number]) Out-Patient Physical Therapy Visit Information Visit Information Visit Type Treatment Note Visit Start Time 16:45 Visit Stop Time 17:20 Total Visit Minutes 35 Visit Number 31 Number of HOIST MECHANIC Visits 0 Evaluation Information Evaluation Date 01/05/22 PT-OP-B Current Condition Start: 01/05/22 17:14 Freq: Status: Active Protocol: Document 01/05/22 16:00 DCW (Rec: 01/05/22 17:33 DCW [id number]) Current Condition History of Current Condition Onset Date Long-standing history Current Complaints LE neuropathy, poor balance, gait difficulty, falls History of Current Condition Pt is an 86 year old male presenting with a long- standing history of LE polyneuropathy. Pt notes a general muted sensation in his feet and ankles, and feels like his balance has been worsening, but is unsure if his difficulty comes from his actual neuropathy, or just his leg weakness, which he feels is the main issue. Pt notes that he had back surgery November of last year, the cleaned out between L4-5 and put some contraption in, and following therapy, was receiving therapy at a different clinic. Pt reports that both he and the therapist felt that he had reached a plateau, and they were not seeing much progress, however pt admits that since he stopped PT, he has lost a significant amount of LE strength and stability. Notes increased back pain when standing or walking longer than 15-20 minutes. Has had two recent falls, and another that was a few months ago. Admits that he doesn't really worry about his falls, because they have not yet resulted in an injury, but they seem to occur when he is in the bathroom and he just loses his balance. Uses a 4WW around his house, but finds it hard to get the walker into his car , so he keeps a FWW in the car for use when out. Notes that when he showers, he is unable to feel the water on his left foot because of his neuropathy . PT-OP-C Subjective Start: 01/05/22 17:14 Freq: Status: Active Protocol: Document 05/31/22 16:45 DCW (Rec: 05/31/22 17:43 DCW [id number]) OP-PT Subjective Patient Comments Patient Comments Pt requests reassessment, and if there has not been substantial change, would prefer to discharge this case and switch focus to shoulder pain. PT-OP-D Balance Start: 01/05/22 17:14 Freq: Status: Active Protocol: Document 05/31/22 16:45 DCW (Rec: 05/31/22 17:38 DCW [id number]) Balance Tests Ann Balance Test Ann Balance Test Score 13/56 Ann Impairment Rating 60 to 79% Impaired (Score 12- 22) Ann Balance Assessment Evaluation Sitting to Standing Ability Independent w/Hands Unsupported Stance Unable w/out Assistance Sitting Unsupported, Feet on Floor Safely- 2 minutes Standing to Sitting Ability Assist, Use Legs on Chair Transfer Ability Supervision, Verbal Cues Unsupported Stance- Eyes Closed Falls Without Assistance Unsupported Stance- Eyes Open Assist to attain, 15 secs Reaching Forward Standing Supervision Needed Pick- Up Object From Floor Requires Assistance Look Behind Shoulder - Standing Assist to Prevent Fall Turning 360 Degrees Requires Assistance Unsupported Stance, Alternating Feet on Assist to Prevent Fall Stair Unsupported Tandem Stance Balance Lost- Step/Stand Unilateral Leg Stance Unable,assist to not fall Total Score Ann Total Score (out of 56 points) 13 Ann Impairment Rating 60 to 79% Impaired (Score 12- 22) PT-OP-E Functional Tests Start: 01/05/22 17:14 Freq: Status: Active Protocol: Document 05/31/22 16:45 DCW (Rec: 05/31/22 17:38 DCW [id number]) Functional Tests Timed Up and Go (TUG) Score 21.95 /c FWW Comments 3-trial average: 24.32, 20.90, 20.63 TUG Impairment Rating 100% Impaired (Score 20) PT-OP-G Mobility & Gait Start: 01/05/22 17:14 Freq: Status: Active Protocol: Document 05/31/22 16:45 DCW (Rec: 05/31/22 17:38 DCW [id number]) OP Gait Assessment Gait Gait Assistance Required: Standby Assistance Assistive Devices Assistive Device Gait Belt,Front Wheeled Walker Gait Deviations General Gait Pattern Decreased Stride Length, Decreased Feet Clearance, Flexed Trunk,Lateral Trunk Lean,Wide Based Gait Factors Limiting Gait Function Factors Limiting Gait Function Decreased Activity Tolerance, Decreased Sensation,Decreased Strength,Poor Balance PT-OP-M Strength Start: 01/05/22 17:36 Freq: Status: Active Protocol: Document 05/31/22 16:45 DCW (Rec: 05/31/22 17:38 DCW [id number]) Ankle/Foot Strength Ankle and Foot Manual Muscle Testing Right Dorsiflexion (L4) 4- Good- Plantarflexion (S1) 4- Good- Left Dorsiflexion (L4) 3+ Fair+ Plantarflexion (S1) 4- Good- PT-OP-Q Treatments Start: 01/05/22 17:14 Freq: Status: Active Protocol: Document 05/31/22 16:45 DCW (Rec: 05/31/22 17:43 DCW [id number]) Neuro Re-Education Treatment Other Activities Testing Details Ann, TUG PT-OP-T Assessment and Plan Start: 01/05/22 17:14 Freq: Status: Active Protocol: Document 05/31/22 16:45 DCW (Rec: 05/31/22 17:43 DCW [id number]) Physical Therapy Assessment Goals Three Impairment TUG score of 21.14 using a FWW Half-Way Goal (LTG) Pt to decrease time taken to perform TUG while using a FWW to <16 seconds in order to demonstrate an improved gait speed. 04/05/22: 25.51 seconds LTG Duration 06/05/22 Two Impairment Pt shows significant falls risk with Ann score of 10/56 Actuarial Technician Goal (LTG) Pt to score at least 10 points higher on the Ann Balance scale with a score of 20/56 in order to demonstrate a decreased falls risk. 05/31/22 : 13/56 LTG Duration 06/05/22 One Impairment Pt does not have an appropriate home exercise program Short Term Goal (STG) Pt to be independent and compliant with an appropriate HEP STG Duration Met Assessment Summary Assessment No significant change in Ann or TUG since initial evaluation, will likely discharge following today's visit, pt would prefer to use remaining scheduled visits to focus on a new evaluation for shoulder pain. Will require new referral from Dr. Proctro Physical Therapy Plan Frequency and Duration Frequency of Treatment 2x/Week Plan of Care Start Date 04/05/22 Plan of Care End Date 07/04/22 Therapeutic Interventions Therapeutic Interventions Aquatic Therapy,Balance Training,Gait Training,Home Exercise Program,Manual Therapy,Neuromuscular Re- education,Patient/Caregiver Education,Self-Care/Home Management,Soft Tissue Mobilization,Therapeutic Activities,Therapeutic Exercises Next Visit Focus/Plan Next Note Type Progress Note Next Visit Plan Next tx: balance activities before machines due to tires quickly. POC: Continue shuttle balance w/ ant. weight shift focus. Continue PT per POC for strengthening, transfers, balance, gait training.
--- NOTE | 2022-06-06 09:36 | PT.OPDS ---
Current Diagnoses Polyneuropathy, unspecified (05/31/22) Other abnormalities of gait and mobility (05/31/22) Repeated falls (05/31/22) Visit Care Team Role Provider Type Dalton Proctor MD Family Provider Physician Primary Care Provider Specialty: Internal Medicine Address: [address] [place] [address], [address], [place], [address] Email: [email or web address] David Lowery MD Attending Provider Non-Staff Referring Provider Specialty: Medical Address: [address] [place] [address], [place], [address] Email: Visit Number Visit Number 31 Discharge Summary PT-OP-B Current Condition Start: 01/05/22 17:14 Freq: Status: Active Protocol: Document 01/05/22 16:00 DCW (Rec: 01/05/22 17:33 DCW [id number]) Current Condition History of Current Condition Onset Date Long-standing history Current Complaints LE neuropathy, poor balance, gait difficulty, falls History of Current Condition Pt is an 86 year old male presenting with a long- standing history of LE polyneuropathy. Pt notes a general muted sensation in his feet and ankles, and feels like his balance has been worsening, but is unsure if his difficulty comes from his actual neuropathy, or just his leg weakness, which he feels is the main issue. Pt notes that he had back surgery November of last year, the cleaned out between L4-5 and put some contraption in, and following therapy, was receiving therapy at a different clinic. Pt reports that both he and the therapist felt that he had reached a plateau, and they were not seeing much progress, however pt admits that since he stopped PT, he has lost a significant amount of LE strength and stability. Notes increased back pain when standing or walking longer than 15-20 minutes. Has had two recent falls, and another that was a few months ago. Admits that he doesn't really worry about his falls, because they have not yet resulted in an injury, but they seem to occur when he is in the bathroom and he just loses his balance. Uses a 4WW around his house, but finds it hard to get the walker into his car , so he keeps a FWW in the car for use when out. Notes that when he showers, he is unable to feel the water on his left foot because of his neuropathy . PT-OP-C Subjective Start: 01/05/22 17:14 Freq: Status: Active Protocol: Document 05/31/22 16:45 DCW (Rec: 05/31/22 17:43 DCW [id number]) OP-PT Subjective Patient Comments Patient Comments Pt requests reassessment, and if there has not been substantial change, would prefer to discharge this case and switch focus to shoulder pain. PT-OP-D Balance Start: 01/05/22 17:14 Freq: Status: Active Protocol: Document 05/31/22 16:45 DCW (Rec: 05/31/22 17:38 DCW [id number]) Balance Tests Ann Balance Test Ann Balance Test Score 13/56 Ann Impairment Rating 60 to 79% Impaired (Score 12- 22) Ann Balance Assessment Evaluation Sitting to Standing Ability Independent w/Hands Unsupported Stance Unable w/out Assistance Sitting Unsupported, Feet on Floor Safely- 2 minutes Standing to Sitting Ability Assist, Use Legs on Chair Transfer Ability Supervision, Verbal Cues Unsupported Stance- Eyes Closed Falls Without Assistance Unsupported Stance- Eyes Open Assist to attain, 15 secs Reaching Forward Standing Supervision Needed Pick- Up Object From Floor Requires Assistance Look Behind Shoulder - Standing Assist to Prevent Fall Turning 360 Degrees Requires Assistance Unsupported Stance, Alternating Feet on Assist to Prevent Fall Stair Unsupported Tandem Stance Balance Lost- Step/Stand Unilateral Leg Stance Unable,assist to not fall Total Score Ann Total Score (out of 56 points) 13 Ann Impairment Rating 60 to 79% Impaired (Score 12- 22) PT-OP-E Functional Tests Start: 01/05/22 17:14 Freq: Status: Active Protocol: Document 05/31/22 16:45 DCW (Rec: 05/31/22 17:38 DCW [id number]) Functional Tests Timed Up and Go (TUG) Score 21.95 /c FWW Comments 3-trial average: 24.32, 20.90, 20.63 TUG Impairment Rating 100% Impaired (Score 20) PT-OP-G Mobility & Gait Start: 01/05/22 17:14 Freq: Status: Active Protocol: Document 05/31/22 16:45 DCW (Rec: 05/31/22 17:38 [facility] [id number]) OP Gait Assessment Gait Gait Assistance Required: Standby Assistance Assistive Devices Assistive Device Gait Belt,Front Wheeled Walker Gait Deviations General Gait Pattern Decreased Stride Length, Decreased Feet Clearance, Flexed Trunk,Lateral Trunk Lean,Wide Based Gait Factors Limiting Gait Function Factors Limiting Gait Function Decreased Activity Tolerance, Decreased Sensation,Decreased Strength,Poor Balance PT-OP-M Strength Start: 01/05/22 17:36 Freq: Status: Active Protocol: Document 05/31/22 16:45 DCW (Rec: 05/31/22 17:38 DC [id number]) Ankle/Foot Strength Ankle and Foot Manual Muscle Testing Right Dorsiflexion (L4) 4- Good- Plantarflexion (S1) 4- Good- Left Dorsiflexion (L4) 3+ Fair+ Plantarflexion (S1) 4- Good- PT-OP-T Assessment and Plan Start: 01/05/22 17:14 Freq: Status: Active Protocol: Document 05/31/22 16:45 DCW (Rec: 05/31/22 17:43 DC [id number]) Physical Therapy Assessment Goals Three Impairment TUG score of 21.14 using a FWW Chcf Goal (LTG) Pt to decrease time taken to perform TUG while using a FWW to <16 seconds in order to demonstrate an improved gait speed. 04/05/22: 25.51 seconds LTG Duration 06/05/22 Two Impairment Pt shows significant falls risk with Ann score of 10/56 Traffic Inspector Goal (LTG) Pt to score at least 10 points higher on the Ann Balance scale with a score of 20/56 in order to demonstrate a decreased falls risk. 05/31/22 : 13/56 LTG Duration 06/05/22 One Impairment Pt does not have an appropriate home exercise program Short Term Goal (STG) Pt to be independent and compliant with an appropriate HEP STG Duration Met Assessment Summary Assessment No significant change in Ann or TUG since initial evaluation, will likely discharge following today's visit, pt would prefer to use remaining scheduled visits to focus on a new evaluation for shoulder pain. Will require new referral from Dr. Proctor Physical Therapy Plan Frequency and Duration Frequency of Treatment 2x/Week Plan of Care Start Date 04/05/22 Plan of Care End Date 12/05/22 Therapeutic Interventions Therapeutic Interventions Aquatic Therapy,Balance Training,Gait Training,Home Exercise Program,Manual Therapy,Neuromuscular Re- education,Patient/Caregiver Education,Self-Care/Home Management,Soft Tissue Mobilization,Therapeutic Activities,Therapeutic Exercises Next Visit Focus/Plan Next Note Type Progress Note Next Visit Plan Next tx: balance activities before machines due to tires quickly. POC: Continue shuttle balance w/ ant. weight shift focus. Continue PT per POC for strengthening, transfers, balance, gait training.
== END 2022-06-08 08:40 | disposition home or self-care (01) ==
LOC: PHYS 16:45
PROVIDERS: Family Provider Internal Medicine; PCP Internal Medicine; Referring Provider Neuromusculoskeletal Medicine, Sports Medicine; Visit Provider Neuromusculoskeletal Medicine, Sports Medicine
DX: G62.9 Polyneuropathy, unspecified (principal); R29.6 Repeated falls; R26.89 Other abnormalities of gait and mobility
CPT/HCPCS: 97110; 97112; 97163; 97530

== ENCOUNTER 2022-07-29 14:30 | Outpatient (RCR) | payer MEDICARE, OTHER, SELFPAY ==
[2022-01-18 15:17] VITALS: BMI 25.8
--- NOTE | 2022-06-06 18:15 | PT.OIE ---
Current Diagnoses Pain in right shoulder (06/06/22) Pain in unspecified shoulder (06/06/22) Impingement syndrome of right shoulder (06/06/22) Past Medical History (Last Updated 05/30/22 @ 15:54 by Dalton Proctor MD) Acromioclavicular joint separation, type 2 CAD (coronary artery disease) (~2007) Cervical stenosis of spinal canal Chronic back pain Colon polyps (~2010) COVID-19 (~12/2021) CVA (cerebral vascular accident) (2015) Facet arthropathy, lumbar Foraminal stenosis of lumbosacral region Gait instability H/O: stroke (04/10/16) Hyperlipidemia Hypertension (~2016) Lumbar post-laminectomy syndrome Lumbosacral spondylosis Measles Mumps Neuropathy Osteoarthritis PAD (peripheral artery disease) Peripheral neuropathy (~1979) Peripheral vascular disease Rotator cuff impingement syndrome of right shoulder Sick sinus syndrome Skin cancer Spinal stenosis Spinal stenosis of lumbar region without neurogenic claudication Spondylolisthesis at L4-L5 level Squamous cell skin cancer (~2015) Syncope Vertigo (~2013) Vision disorder Past Surgical History (Last Reviewed 01/20/22 @ 08:10 by Dalton Proctor MD) History of lumbar laminectomy (1988) History of lumbar laminectomy (1952) History of surgery (2007) History of surgery (1952) History of vasectomy Hx of bilateral cataract extraction 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) Visit Care Team Role Provider Type Dalton Proctor MD Attending Provider Physician Family Provider Primary Care Provider Referring Provider Specialty: Internal Medicine Address: [address] [place] [address], [address], [facility] Email: [email or web address] Therapy Initial Evaluation PT-OP-A Visit Information Start: 06/06/22 17:41 Freq: Status: Active Protocol: Document 06/06/22 10:30 DCW (Rec: 06/06/22 18:15 DCW [id number]) Out-Patient Physical Therapy Visit Information Visit Information Visit Type Initial Evaluation Visit Start Time 10:30 Visit Stop Time 11:15 Total Visit Minutes 45 Visit Number 1 Number of MANAGER PLACEMENT Visits 0 Evaluation Information Evaluation Date 06/06/22 PT-OP-B Current Condition Start: 06/06/22 17:41 Freq: Status: Active Protocol: Document 06/06/22 10:30 DCW (Rec: 06/06/22 18:15 DCW [id number]) Current Condition History of Current Condition Onset Date 6 month history Current Complaints R shoulder pain white weight- bearing or side-sleeping History of Current Condition Pt is an 87 year old male well known to this clinic presenting with a six month history of right shoulder pain . Pt admits that he has had shoulder pain off and on for years, but over the past six months, he has noticed that it has been worse with no relief . Pt was just discharged from this clinic last week, which he was attending for falls, balance, and neuropathy. Pt ambulates exclusively with a FWW, which he does tend to rely on excessive UE support while walking. Pt reports if he tries to sleep on his right side, he typically gets shooting pain down his arm and into his hand. Does not have any issues with overhead activities or lifting. Treatment Goals Patient/Caregiver Goals Pt's goal is to decrease shoulder pain, especially at night. PT-OP-C Subjective Start: 06/06/22 17:41 Freq: Status: Active Protocol: Document 06/06/22 10:30 DCW (Rec: 06/06/22 18:15 DCW [id number]) OP-PT Subjective Patient Comments Patient Comments I can't remember ever doing anything to it, it just seems to get worse. Patient Questionnaires Quick Dash- Upper Extremity Quick Dash UE Score 43.18% Quick Dash UE Impairment 40 to 59% Impaired (Score 40- 59) OP-PT Pain Assessment Location Right Lateral Shoulder Intensity 5 Scale Used Numeric (0 - 10) Description Aching,Radiating,Shooting, Tingling Frequency Frequent Pain Aggravating Factors Position PT-OP-E Functional Tests Start: 06/06/22 17:41 Freq: Status: Active Protocol: Document 06/06/22 10:30 DCW (Rec: 06/06/22 18:15 DCW [id number]) Functional Tests Apley's Scratch Test Action 1- Left Posterior opposite shoulder Action 1- Right Posterior opposite shoulder Action 2- Left T2 Action 2- Right T2 Action 3- Left T10 Action 3- Right T11 PT-OP-F Manual Assessment Start: 06/06/22 17:41 Freq: Status: Active Protocol: Document 06/06/22 10:30 DCW (Rec: 06/06/22 18:15 DCW [id number]) Manual Assessments Soft Tissue Assessment Soft Tissue Mobility Assessment Hypertonia in right upper trap and scalenes Joint Mobility Assessment Joint Mobility Assessment Elevated right scapula, moderate right scapular winging PT-OP-K Range of Motion Start: 06/06/22 17:41 Freq: Status: Active Protocol: Document 06/06/22 10:30 DCW (Rec: 06/06/22 18:15 DCW [id number]) Shoulder Goniometric Range of Motion Shoulder Right Active Shoulder ROM WFL Yes Testing Position Sitting Flexion 180 Abduction 180 External Rotation at 0 degrees Abduction 55 Internal Rotation Behind Back (text) T11 Comments Pain at end-range flexion in right lateral shoulder Left Active Shoulder ROM WFL Yes Testing Position Sitting Flexion 180 Abduction 180 External Rotation at 0 degrees Abduction 55 Internal Rotation Behind Back (text) T10 PT-OP-L Special Tests Start: 06/06/22 17:41 Freq: Status: Active Protocol: Document 06/06/22 10:30 DCW (Rec: 06/06/22 18:15 DCW [id number]) Special Tests Shoulder Special Tests Passive ER Rotator Cuff Test Results Negative Painful Arc Test Results Negative Lift-Off Rotator Cuff Test Results Negative Patterson Joe Impingement Test Results Positive Right Grind Labrum Test Results Negative Empty Can Test Results Negative Drop Arm Rotator Cuff Test Results Negative Belly Press Test Results Negative Apprehension Test Test Results Negative Anterior Draw Test Results Negative AC Joint Compression Test Results Negative Neural Special Tests- Upper Body Radial Nerve Tension Test Results Negative Median Nerve Tension Test Results Negative PT-OP-M Strength Start: 06/06/22 17:41 Freq: Status: Active Protocol: Document 06/06/22 10:30 DCW (Rec: 06/06/22 18:15 DCW [id number]) Shoulder Strength Shoulder Manual Muscle Testing Right Flexion 4 Good Abduction (C5) 4 Good External Rotation 4+ Good+ Internal Rotation 4+ Good+ Comments Pain with resisted right flexion Left Flexion 4+ Good+ Abduction (C5) 4+ Good+ External Rotation 4+ Good+ Internal Rotation 4+ Good+ PT-OP-Q Treatments Start: 06/06/22 17:41 Freq: Status: Active Protocol: Document 06/06/22 10:30 DCW (Rec: 06/06/22 18:15 DCW [id number]) Therapeutic Exercises Sitting Exercises Shrugs Sitting Exercise Name Shoulder Shrugs Side bilateral Resistance Lv 2 Flexion Sitting Exercise Name Shoulder Flexion Side bilateral Resistance Lv 2 Abduction Sitting Exercise Name Shoulder Abduction Side bilateral Resistance Lv 2 PT-OP-T Assessment and Plan Start: 06/06/22 17:41 Freq: Status: Active Protocol: Document 06/06/22 10:30 DCW (Rec: 06/06/22 18:15 DCW [id number]) Physical Therapy Assessment Rehab Potential Rehabilitation Potential Good Evaluation Complexity Number of Personal Factors/Comorbidities 1-2 Number of Body Systems Impaired 3 Clinical Presentation at Evaluation Evolving Impairments Impairments Activity Tolerance,Functional Activities,Functional Mobility ,Pain,Posture,Soft Tissue Mobility,Strength,Tone Other Concerns Fall Risk Yes, per past rehab Goals Two Impairment Pt sleep frequently disturbed due to right shoulder pain Preparation Center Coordinator Goal (LTG) Pt to report ability to sleep without disturbances due to shoulder pain for one full week LTG Duration 08/15/22 One Impairment Pt does not have an appropriate home exercise program Short Term Goal (STG) Pt to be independent and compliant with an appropriate HEP STG Duration 07/11/22 Assessment Summary Assessment Pt presents with signs and symptoms consistent with possible right shoulder impingement. Special testing largely negative, and pt shows ROM WNL, some slight weakness with right abduction and flexion. Pt also displays increased upper trap and scalene tone, as well as mild scapular winging and elevation on the right side. Pt should benefit from skilled therapy focusing on improving joint mobility and stability, increased sub-acromial space, shoulder strengthen, and posture training. Physical Therapy Plan Frequency and Duration Frequency of Treatment 2x/Week Duration of treatment (weeks) 10 Plan of Care Start Date 06/06/22 Plan of Care End Date 08/15/22 Therapeutic Interventions Therapeutic Interventions Home Exercise Program,Joint Mobilizations,Manual Therapy, Patient/Caregiver Education, Self-Care/Home Management,Soft Tissue Mobilization, Therapeutic Activities, Therapeutic Exercises Modalities Cold Pack/Ice Massage,Hot Packs Next Visit Focus/Plan Next Note Type Treatment Note Next Visit Plan Focus on shoulder strengthening, joint mobilization, improved scapular stabilization
--- NOTE | 2022-06-06 18:15 | PT.OPPOC ---
Physical, Occupational & Speech Therapy At [facility] Current Diagnoses Pain in right shoulder (06/06/22) Pain in unspecified shoulder (06/06/22) Impingement syndrome of right shoulder (06/06/22) Visit Care Team Role Provider Type Dalton Proctor MD Attending Provider Physician Family Provider Primary Care Provider Referring Provider Specialty: Internal Medicine Address: [address] [place] [address], [address], [facility] Email: [email or web address] Plan Of Care PT-OP-T Assessment and Plan Start: 06/06/22 17:41 Freq: Status: Active Protocol: Document 06/06/22 10:30 DCW (Rec: 06/06/22 18:15 DCW [id number]) Physical Therapy Assessment Rehab Potential Rehabilitation Potential Good Evaluation Complexity Number of Personal Factors/Comorbidities 1-2 Number of Body Systems Impaired 3 Clinical Presentation at Evaluation Evolving Impairments Impairments Activity Tolerance,Functional Activities,Functional Mobility ,Pain,Posture,Soft Tissue Mobility,Strength,Tone Other Concerns Fall Risk Yes, per past rehab Goals Two Impairment Pt sleep frequently disturbed due to right shoulder pain Gas Maker Goal (LTG) Pt to report ability to sleep without disturbances due to shoulder pain for one full week LTG Duration 08/15/22 One Impairment Pt does not have an appropriate home exercise program Short Term Goal (STG) Pt to be independent and compliant with an appropriate HEP STG Duration 07/11/22 Assessment Summary Assessment Pt presents with signs and symptoms consistent with possible right shoulder impingement. Special testing largely negative, and pt shows ROM WNL, some slight weakness with right abduction and flexion. Pt also displays increased upper trap and scalene tone, as well as mild scapular winging and elevation on the right side. Pt should benefit from skilled therapy focusing on improving joint mobility and stability, increased sub-acromial space, shoulder strengthen, and posture training. Physical Therapy Plan Frequency and Duration Frequency of Treatment 2x/Week Duration of treatment (weeks) 10 Plan of Care Start Date 06/06/22 Plan of Care End Date 08/15/22 Therapeutic Interventions Therapeutic Interventions Home Exercise Program,Joint Mobilizations,Manual Therapy, Patient/Caregiver Education, Self-Care/Home Management,Soft Tissue Mobilization, Therapeutic Activities, Therapeutic Exercises Modalities Cold Pack/Ice Massage,Hot Packs Next Visit Focus/Plan Next Note Type Treatment Note Next Visit Plan Focus on shoulder strengthening, joint mobilization, improved scapular stabilization Plan of Care Dates Plan of Care Start Date 06/06/22 Plan of Care End Date 08/15/22 Electronically Signed by: Eligio Trent, PT 06/06/22 [id number] If you are in agreement with this Plan of Care, please return a signed and dated copy. I have reviewed this Plan of Care and certify that the skilled therapy services above are required to meet the patient?s needs. Physician Signature Date Printed Name and Credentials Clinical Instructor Signature Printed Name and Credentials
--- NOTE | 2022-06-21 20:53 | PT.OTN ---
Current Diagnoses Pain in right shoulder (06/21/22) Pain in unspecified shoulder (06/21/22) Impingement syndrome of right shoulder (06/21/22) Physical Therapy Treatment Note PT-OP-A Visit Information Start: 06/06/22 17:41 Freq: Status: Active Protocol: Document 06/21/22 10:42 NBM (Rec: 06/21/22 20:29 NBM [id number]) Out-Patient Physical Therapy Visit Information Visit Information Visit Type Treatment Note Visit Note [employer] late getting pt. Visit Start Time 10:42 Visit Stop Time 11:15 Total Visit Minutes 33 Visit Number 2 Number of LABORER [employer]CR[employer] Visits 1 PT-OP-B Current Condition Start: 06/06/22 17:41 Freq: Status: Active Protocol: Document 06/06/22 10:30 DCW (Rec: 06/06/22 18:15 DCW [id number]) Current Condition History of Current Condition Onset Date 6 month history Current Complaints R shoulder pain white weight- bearing or side-sleeping History of Current Condition Pt is an 87 year old male well known to this clinic presenting with a six month history of right shoulder pain . Pt admits that he has had shoulder pain off and on for years, but over the past six months, he has noticed that it has been worse with no relief . Pt was just discharged from this clinic last week, which he was attending for falls, balance, and neuropathy. Pt ambulates exclusively with a FWW, which he does tend to rely on excessive UE support while walking. Pt reports if he tries to sleep on his right side, he typically gets shooting pain down his arm and into his hand. Does not have any issues with overhead activities or lifting. Treatment Goals Patient/Caregiver Goals Pt's goal is to decrease shoulder pain, especially at night. PT-OP-C Subjective Start: 06/06/22 17:41 Freq: Status: Active Protocol: Document 06/21/22 10:42 NBM (Rec: 06/21/22 13:00 NBM [id number]) OP-PT Subjective Patient Comments Patient Comments Pt fell a week and a half ago and bruised his ribs on the bed footboard, so didn't do exercises then. He started them again two days ago. His shoulder is the same. PT-OP-E Functional Tests Start: 06/06/22 17:41 Freq: Status: Active Protocol: Document 06/06/22 10:30 DCW (Rec: 06/06/22 18:15 DCW [id number]) Functional Tests Apley's Scratch Test Action 1- Left Posterior opposite shoulder Action 1- Right Posterior opposite shoulder Action 2- Left T2 Action 2- Right T2 Action 3- Left T10 Action 3- Right T11 PT-OP-F Manual Assessment Start: 06/06/22 17:41 Freq: Status: Active Protocol: Document 06/06/22 10:30 DCW (Rec: 06/06/22 18:15 DCW [id number]) Manual Assessments Soft Tissue Assessment Soft Tissue Mobility Assessment Hypertonia in right upper trap and scalenes Joint Mobility Assessment Joint Mobility Assessment Elevated right scapula, moderate right scapular winging PT-OP-K Range of Motion Start: 06/06/22 17:41 Freq: Status: Active Protocol: Document 06/06/22 10:30 DCW (Rec: 06/06/22 18:15 DCW [id number]) Shoulder Goniometric Range of Motion Shoulder Right Active Shoulder ROM WFL Yes Testing Position Sitting Flexion 180 Abduction 180 External Rotation at 0 degrees Abduction 55 Internal Rotation Behind Back (text) T11 Comments Pain at end-range flexion in right lateral shoulder Left Active Shoulder ROM WFL Yes Testing Position Sitting Flexion 180 Abduction 180 External Rotation at 0 degrees Abduction 55 Internal Rotation Behind Back (text) T10 PT-OP-L Special Tests Start: 06/06/22 17:41 Freq: Status: Active Protocol: Document 06/06/22 10:30 DCW (Rec: 06/06/22 18:15 DCW [id number]) Special Tests Shoulder Special Tests Passive ER Rotator Cuff Test Results Negative Painful Arc Test Results Negative Lift-Off Rotator Cuff Test Results Negative Patterson Joe Impingement Test Results Positive Right Grind Labrum Test Results Negative Empty Can Test Results Negative Drop Arm Rotator Cuff Test Results Negative Belly Press Test Results Negative Apprehension Test Test Results Negative Anterior Draw Test Results Negative AC Joint Compression Test Results Negative Neural Special Tests- Upper Body Radial Nerve Tension Test Results Negative Median Nerve Tension Test Results Negative PT-OP-M Strength Start: 06/06/22 17:41 Freq: Status: Active Protocol: Document 06/06/22 10:30 DCW (Rec: 06/06/22 18:15 DCW [id number]) Shoulder Strength Shoulder Manual Muscle Testing Right Flexion 4 Good Abduction (C5) 4 Good External Rotation 4+ Good+ Internal Rotation 4+ Good+ Comments Pain with resisted right flexion Left Flexion 4+ Good+ Abduction (C5) 4+ Good+ External Rotation 4+ Good+ Internal Rotation 4+ Good+ PT-OP-Q Treatments Start: 06/06/22 17:41 Freq: Status: Active Protocol: Document 06/21/22 10:42 NBM (Rec: 06/21/22 13:00 [facility] [id number]) Therapeutic Exercises Sitting Exercises Stretches Sitting Exercise Name 1. Lower cervical extensors 2. LS 3. UT Side bilateral Reps/Minutes x30s ea Comments cues for chin tuck, no rotation w/ UT - added to HEP Shrugs Sitting Exercise Name Shoulder Shrugs Side bilateral Resistance Lv 2 Comments choke up Flexion Sitting Exercise Name Shoulder Flexion Side bilateral Resistance Lv 2 Abduction Sitting Exercise Name Shoulder Abduction Side bilateral Resistance Lv 2 Manual Therapy Treatment Soft Tissue Mobilization cervical Body Location paraspinals, SO Mobilization Type Rolling,Strumming,Sustained Pressure,Other Intensity/Depth Moderate Body Position Hooklying Comments manual cervical trx 2x 30s - good feedback response R shoulder Body Location UT, LS, scalenes Mobilization Type Rolling,Strumming,Sustained Pressure,Other Intensity/Depth Moderate Body Position Hooklying Comments manual stretching to UT and LS - with LS stretch pt noted discomfort in L ribs from recent fall. Self-Care/Home Management Treatment Education Patient Education Home Exercise Program,Pain Management,Posture Other Education Added to HEP: lower cervical extensor stretch, LS stretch, UT stretch - HO given. Educated pt on s/l sleep positioning strategies to relieve shoulder pain - HO given. Discussed posture correction w / chin tucks and scapular squeezes. Discussed ice to relieve shoulder pain as well. PT-OP-T Assessment and Plan Start: 06/06/22 17:41 Freq: Status: Active Protocol: Document 06/21/22 10:42 NBM (Rec: 06/21/22 13:00 [facility] [id number]) Physical Therapy Assessment Goals Two Impairment Pt sleep frequently disturbed due to right shoulder pain Short Term Goal (STG) 06/21/22: Educated pt on sleep positioning strategies to relieve shoulder pain - HO given. Discussed ice to relieve shoulder pain as well. Retirement Goal (LTG) Pt to report ability to sleep without disturbances due to shoulder pain for one full week LTG Duration 08/15/22 One Impairment Pt does not have an appropriate home exercise program Short Term Goal (STG) Pt to be independent and compliant with an appropriate HEP 06/21/22: HEP review: resisted shoulder shrugs, flexion, abducation. Added to HEP: lower cervical extensor stretch, LS stretch, UT stretch - HO given. STG Duration 07/11/22 Assessment Summary Assessment Pt requires tactile cues for scapular squeezes and max cues for Upper trapezius overactivation with resisted exercises and for chin tuck w/ posture and stretches. Added to HEP: lower cervical extensor stretch, LS stretch, UT stretch - HO given. Palpable tightness in R UT and LS decreases with manual therapy. Educated pt on sidelying sleep positioning strategies to relieve shoulder pain - HO given. Discussed ice to relieve shoulder pain as well. Physical Therapy Plan Frequency and Duration Frequency of Treatment 2x/Week Duration of treatment (weeks) 10 Plan of Care Start Date 06/06/22 Plan of Care End Date 08/15/22 Therapeutic Interventions Therapeutic Interventions Home Exercise Program,Joint Mobilizations,Manual Therapy, Patient/Caregiver Education, Self-Care/Home Management,Soft Tissue Mobilization, Therapeutic Activities, Therapeutic Exercises Modalities Cold Pack/Ice Massage,Hot Packs Next Visit Focus/Plan Next Note Type Treatment Note Next Visit Plan Add scapular squeeze. Focus on shoulder strengthening, joint mobilization, improved scapular stabilization
--- NOTE | 2022-07-05 11:13 | PT.OTN ---
Current Diagnoses Pain in right shoulder (07/05/22) Pain in unspecified shoulder (07/05/22) Impingement syndrome of right shoulder (07/05/22) Physical Therapy Treatment Note PT-OP-A Visit Information Start: 06/06/22 17:41 Freq: Status: Active Protocol: Document 07/05/22 10:30 DCW (Rec: 07/05/22 11:13 DCW [id number]) Out-Patient Physical Therapy Visit Information Visit Information Visit Type Treatment Note Visit Start Time 10:30 Visit Stop Time 11:15 Total Visit Minutes 45 Visit Number 3 Number of TOOL PUSHER Visits 0 Evaluation Information Evaluation Date 06/06/22 PT-OP-B Current Condition Start: 06/06/22 17:41 Freq: Status: Active Protocol: Document 06/06/22 10:30 DCW (Rec: 06/06/22 18:15 DCW [id number]) Current Condition History of Current Condition Onset Date 6 month history Current Complaints R shoulder pain white weight- bearing or side-sleeping History of Current Condition Pt is an 87 year old male well known to this clinic presenting with a six month history of right shoulder pain . Pt admits that he has had shoulder pain off and on for years, but over the past six months, he has noticed that it has been worse with no relief . Pt was just discharged from this clinic last week, which he was attending for falls, balance, and neuropathy. Pt ambulates exclusively with a FWW, which he does tend to rely on excessive UE support while walking. Pt reports if he tries to sleep on his right side, he typically gets shooting pain down his arm and into his hand. Does not have any issues with overhead activities or lifting. Treatment Goals Patient/Caregiver Goals Pt's goal is to decrease shoulder pain, especially at night. PT-OP-C Subjective Start: 06/06/22 17:41 Freq: Status: Active Protocol: Document 07/05/22 10:30 DCW (Rec: 07/05/22 11:13 DCW [id number]) OP-PT Subjective Patient Comments Patient Comments Pt feels his shoulder is starting to feel a little better. Shoulder still bothers him if he sleeps on that side, but not as severely . PT-OP-E Functional Tests Start: 06/06/22 17:41 Freq: Status: Active Protocol: Document 06/06/22 10:30 DCW (Rec: 06/06/22 18:15 DCW [id number]) Functional Tests Apley's Scratch Test Action 1- Left Posterior opposite shoulder Action 1- Right Posterior opposite shoulder Action 2- Left T2 Action 2- Right T2 Action 3- Left T10 Action 3- Right T11 PT-OP-F Manual Assessment Start: 06/06/22 17:41 Freq: Status: Active Protocol: Document 06/06/22 10:30 DCW (Rec: 06/06/22 18:15 DCW [id number]) Manual Assessments Soft Tissue Assessment Soft Tissue Mobility Assessment Hypertonia in right upper trap and scalenes Joint Mobility Assessment Joint Mobility Assessment Elevated right scapula, moderate right scapular winging PT-OP-K Range of Motion Start: 06/06/22 17:41 Freq: Status: Active Protocol: Document 06/06/22 10:30 DCW (Rec: 06/06/22 18:15 DCW [id number]) Shoulder Goniometric Range of Motion Shoulder Right Active Shoulder ROM WFL Yes Testing Position Sitting Flexion 180 Abduction 180 External Rotation at 0 degrees Abduction 55 Internal Rotation Behind Back (text) T11 Comments Pain at end-range flexion in right lateral shoulder Left Active Shoulder ROM WFL Yes Testing Position Sitting Flexion 180 Abduction 180 External Rotation at 0 degrees Abduction 55 Internal Rotation Behind Back (text) T10 PT-OP-L Special Tests Start: 06/06/22 17:41 Freq: Status: Active Protocol: Document 06/06/22 10:30 DCW (Rec: 06/06/22 18:15 DCW [id number]) Special Tests Shoulder Special Tests Passive ER Rotator Cuff Test Results Negative Painful Arc Test Results Negative Lift-Off Rotator Cuff Test Results Negative Patterson Joe Impingement Test Results Positive Right Grind Labrum Test Results Negative Empty Can Test Results Negative Drop Arm Rotator Cuff Test Results Negative Belly Press Test Results Negative Apprehension Test Test Results Negative Anterior Draw Test Results Negative AC Joint Compression Test Results Negative Neural Special Tests- Upper Body Radial Nerve Tension Test Results Negative Median Nerve Tension Test Results Negative PT-OP-M Strength Start: 06/06/22 17:41 Freq: Status: Active Protocol: Document 06/06/22 10:30 DCW (Rec: 06/06/22 18:15 DCW [id number]) Shoulder Strength Shoulder Manual Muscle Testing Right Flexion 4 Good Abduction (C5) 4 Good External Rotation 4+ Good+ Internal Rotation 4+ Good+ Comments Pain with resisted right flexion Left Flexion 4+ Good+ Abduction (C5) 4+ Good+ External Rotation 4+ Good+ Internal Rotation 4+ Good+ PT-OP-Q Treatments Start: 06/06/22 17:41 Freq: Status: Active Protocol: Document 07/05/22 10:30 DCW (Rec: 07/05/22 11:13 DCW [id number]) Cardio Equipment Upper Body Ergometer (UBE) Duration (Minutes) 5 RPM 45 Seat Position 11 Height 3 Therapeutic Exercises Sitting Exercises Shoulder Press Sitting Exercise Name Shoulder Press/ Press Side bilateral Resistance 4# /c PVC Rows Sitting Exercise Name Rows Side bilateral Resistance Lv 3 Standing Exercises Extension Standing Exercise Name Shoulder Extension Side bilateral Resistance Lv 2 Comments one side at a time, holding onto FWW for stability Manual Therapy Treatment Soft Tissue Mobilization cervical Body Location paraspinals, SO Mobilization Type Rolling,Strumming,Sustained Pressure,Other Intensity/Depth Moderate Body Position Hooklying Comments manual cervical trx 2x 30s - good feedback response R shoulder Body Location UT, LS, scalenes Mobilization Type Rolling,Strumming,Sustained Pressure,Other Intensity/Depth Moderate Body Position Hooklying Comments manual stretching to UT and LS - with LS stretch pt noted discomfort in L ribs from recent fall. PT-OP-T Assessment and Plan Start: 06/06/22 17:41 Freq: Status: Active Protocol: Document 07/05/22 10:30 DCW (Rec: 07/05/22 11:13 DCW [id number]) Physical Therapy Assessment Impairments Impairments Activity Tolerance,Functional Activities,Functional Mobility ,Pain,Posture,Soft Tissue Mobility,Strength,Tone Goals Two Impairment Pt sleep frequently disturbed due to right shoulder pain Short Term Goal (STG) 06/21/22: Educated pt on sleep positioning strategies to relieve shoulder pain - HO given. Discussed ice to relieve shoulder pain as well. Information Tech Goal (LTG) Pt to report ability to sleep without disturbances due to shoulder pain for one full week LTG Duration 08/15/22 One Impairment Pt does not have an appropriate home exercise program Short Term Goal (STG) Pt to be independent and compliant with an appropriate HEP 06/21/22: HEP review: resisted shoulder shrugs, flexion, abduction. Added to HEP: lower cervical extensor stretch, LS stretch, UT stretch - HO given. STG Duration 07/11/22 Assessment Summary Assessment Pt tolerated treatment well today, noticeable decrease in tone following STM, showing improved pain levels overall. Physical Therapy Plan Frequency and Duration Frequency of Treatment 2x/Week Duration of treatment (weeks) 10 Plan of Care Start Date 06/06/22 Plan of Care End Date 08/15/22 Therapeutic Interventions Therapeutic Interventions Home Exercise Program,Joint Mobilizations,Manual Therapy, Patient/Caregiver Education, Self-Care/Home Management,Soft Tissue Mobilization, Therapeutic Activities, Therapeutic Exercises Modalities Cold Pack/Ice Massage,Hot Packs Next Visit Focus/Plan Next Note Type Treatment Note Next Visit Plan Focus on shoulder strengthening, joint mobilization, improved scapular stabilization
--- NOTE | 2022-07-08 15:15 | PT.OTN ---
Current Diagnoses Pain in right shoulder (07/08/22) Pain in unspecified shoulder (07/08/22) Impingement syndrome of right shoulder (07/08/22) Physical Therapy Treatment Note PT-OP-A Visit Information Start: 06/06/22 17:41 Freq: Status: Active Protocol: Document 07/08/22 14:30 DCW (Rec: 07/08/22 15:15 DCW [id number]) Out-Patient Physical Therapy Visit Information Visit Information Visit Type Treatment Note Visit Start Time 14:30 Visit Stop Time 15:15 Total Visit Minutes 45 Visit Number 4 Number of LOG SORTING SUPERVISOR Visits 0 Evaluation Information Evaluation Date 06/06/22 PT-OP-B Current Condition Start: 06/06/22 17:41 Freq: Status: Active Protocol: Document 06/06/22 10:30 DCW (Rec: 06/06/22 18:15 DCW [id number]) Current Condition History of Current Condition Onset Date 6 month history Current Complaints R shoulder pain white weight- bearing or side-sleeping History of Current Condition Pt is an 87 year old male well known to this clinic presenting with a six month history of right shoulder pain . Pt admits that he has had shoulder pain off and on for years, but over the past six months, he has noticed that it has been worse with no relief . Pt was just discharged from this clinic last week, which he was attending for falls, balance, and neuropathy. Pt ambulates exclusively with a FWW, which he does tend to rely on excessive UE support while walking. Pt reports if he tries to sleep on his right side, he typically gets shooting pain down his arm and into his hand. Does not have any issues with overhead activities or lifting. Treatment Goals Patient/Caregiver Goals Pt's goal is to decrease shoulder pain, especially at night. PT-OP-C Subjective Start: 06/06/22 17:41 Freq: Status: Active Protocol: Document 07/08/22 14:30 DCW (Rec: 07/08/22 15:15 DCW [id number]) OP-PT Subjective Patient Comments Patient Comments I think it's feeling better, but laying on it is still a problem. PT-OP-E Functional Tests Start: 06/06/22 17:41 Freq: Status: Active Protocol: Document 06/06/22 10:30 DCW (Rec: 06/06/22 18:15 DCW [id number]) Functional Tests Apley's Scratch Test Action 1- Left Posterior opposite shoulder Action 1- Right Posterior opposite shoulder Action 2- Left T2 Action 2- Right T2 Action 3- Left T10 Action 3- Right T11 PT-OP-F Manual Assessment Start: 06/06/22 17:41 Freq: Status: Active Protocol: Document 06/06/22 10:30 DCW (Rec: 06/06/22 18:15 DCW [id number]) Manual Assessments Soft Tissue Assessment Soft Tissue Mobility Assessment Hypertonia in right upper trap and scalenes Joint Mobility Assessment Joint Mobility Assessment Elevated right scapula, moderate right scapular winging PT-OP-K Range of Motion Start: 06/06/22 17:41 Freq: Status: Active Protocol: Document 06/06/22 10:30 DCW (Rec: 06/06/22 18:15 DCW [id number]) Shoulder Goniometric Range of Motion Shoulder Right Active Shoulder ROM WFL Yes Testing Position Sitting Flexion 180 Abduction 180 External Rotation at 0 degrees Abduction 55 Internal Rotation Behind Back (text) T11 Comments Pain at end-range flexion in right lateral shoulder Left Active Shoulder ROM WFL Yes Testing Position Sitting Flexion 180 Abduction 180 External Rotation at 0 degrees Abduction 55 Internal Rotation Behind Back (text) T10 PT-OP-L Special Tests Start: 06/06/22 17:41 Freq: Status: Active Protocol: Document 06/06/22 10:30 DCW (Rec: 06/06/22 18:15 DCW [id number]) Special Tests Shoulder Special Tests Passive ER Rotator Cuff Test Results Negative Painful Arc Test Results Negative Lift-Off Rotator Cuff Test Results Negative Patterson Joe Impingement Test Results Positive Right Grind Labrum Test Results Negative Empty Can Test Results Negative Drop Arm Rotator Cuff Test Results Negative Belly Press Test Results Negative Apprehension Test Test Results Negative Anterior Draw Test Results Negative AC Joint Compression Test Results Negative Neural Special Tests- Upper Body Radial Nerve Tension Test Results Negative Median Nerve Tension Test Results Negative PT-OP-M Strength Start: 06/06/22 17:41 Freq: Status: Active Protocol: Document 06/06/22 10:30 DCW (Rec: 06/06/22 18:15 DCW [id number]) Shoulder Strength Shoulder Manual Muscle Testing Right Flexion 4 Good Abduction (C5) 4 Good External Rotation 4+ Good+ Internal Rotation 4+ Good+ Comments Pain with resisted right flexion Left Flexion 4+ Good+ Abduction (C5) 4+ Good+ External Rotation 4+ Good+ Internal Rotation 4+ Good+ PT-OP-Q Treatments Start: 06/06/22 17:41 Freq: Status: Active Protocol: Document 07/08/22 14:30 DCW (Rec: 07/08/22 15:15 DCW [id number]) Cardio Equipment Upper Body Ergometer (UBE) Duration (Minutes) 5 RPM 45 Seat Position 11 Height 3 Therapeutic Exercises Sitting Exercises Shoulder Press Sitting Exercise Name Shoulder Press/ Press Side bilateral Resistance 10# /c PVC Rows Sitting Exercise Name Rows Side bilateral Resistance Lv 3 Stretches Sitting Exercise Name Wall stretch - Flexion, Abduction Side bilateral Flexion Sitting Exercise Name Shoulder Flexion Side bilateral Resistance Lv 3 Abduction Sitting Exercise Name Shoulder Abduction Side bilateral Resistance Lv 3 Manual Therapy Treatment Joint Mobilizations GH Joint R GH Direction Inferior Grade III PT-OP-T Assessment and Plan Start: 06/06/22 17:41 Freq: Status: Active Protocol: Document 07/08/22 14:30 DCW (Rec: 07/08/22 15:15 DCW [id number]) Physical Therapy Assessment Impairments Impairments Activity Tolerance,Functional Activities,Functional Mobility ,Pain,Posture,Soft Tissue Mobility,Strength,Tone Goals Two Impairment Pt sleep frequently disturbed due to right shoulder pain Short Term Goal (STG) 06/21/22: Educated pt on sleep positioning strategies to relieve shoulder pain - HO given. Discussed ice to relieve shoulder pain as well. Underwear Welter Goal (LTG) Pt to report ability to sleep without disturbances due to shoulder pain for one full week LTG Duration 08/15/22 One Impairment Pt does not have an appropriate home exercise program Short Term Goal (STG) Pt to be independent and compliant with an appropriate HEP 06/21/22: HEP review: resisted shoulder shrugs, flexion, abduction. Added to HEP: lower cervical extensor stretch, LS stretch, UT stretch - HO given. STG Duration 07/11/22 Assessment Summary Assessment Pt did well with therapy today , was given new T-band for increased resistance during HEP. Continues to struggle donning jacket due to shoulder pain. Physical Therapy Plan Frequency and Duration Frequency of Treatment 2x/Week Duration of treatment (weeks) 10 Plan of Care Start Date 06/06/22 Plan of Care End Date 08/15/22 Therapeutic Interventions Therapeutic Interventions Home Exercise Program,Joint Mobilizations,Manual Therapy, Patient/Caregiver Education, Self-Care/Home Management,Soft Tissue Mobilization, Therapeutic Activities, Therapeutic Exercises Modalities Cold Pack/Ice Massage,Hot Packs Next Visit Focus/Plan Next Note Type Treatment Note Next Visit Plan Focus on shoulder strengthening, joint mobilization, improved scapular stabilization
--- NOTE | 2022-07-12 11:25 | PT.OTN ---
Current Diagnoses Pain in right shoulder (07/12/22) Pain in unspecified shoulder (07/12/22) Impingement syndrome of right shoulder (07/12/22) Physical Therapy Treatment Note PT-OP-A Visit Information Start: 06/06/22 17:41 Freq: Status: Active Protocol: Document 07/12/22 10:30 DCW (Rec: 07/12/22 11:25 DCW [id number]) Out-Patient Physical Therapy Visit Information Visit Information Visit Type Treatment Note Visit Start Time 10:30 Visit Stop Time 11:15 Total Visit Minutes 45 Visit Number 5 Number of FOOD COOKING MACHINE OPERATOR Visits 0 Evaluation Information Evaluation Date 06/06/22 PT-OP-B Current Condition Start: 06/06/22 17:41 Freq: Status: Active Protocol: Document 06/06/22 10:30 DCW (Rec: 06/06/22 18:15 DCW [id number]) Current Condition History of Current Condition Onset Date 6 month history Current Complaints R shoulder pain white weight- bearing or side-sleeping History of Current Condition Pt is an 87 year old male well known to this clinic presenting with a six month history of right shoulder pain . Pt admits that he has had shoulder pain off and on for years, but over the past six months, he has noticed that it has been worse with no relief . Pt was just discharged from this clinic last week, which he was attending for falls, balance, and neuropathy. Pt ambulates exclusively with a FWW, which he does tend to rely on excessive UE support while walking. Pt reports if he tries to sleep on his right side, he typically gets shooting pain down his arm and into his hand. Does not have any issues with overhead activities or lifting. Treatment Goals Patient/Caregiver Goals Pt's goal is to decrease shoulder pain, especially at night. PT-OP-C Subjective Start: 06/06/22 17:41 Freq: Status: Active Protocol: Document 07/12/22 10:30 DCW (Rec: 07/12/22 11:25 DCW [id number]) OP-PT Subjective Patient Comments Patient Comments Pt admits he is still about the same. PT-OP-E Functional Tests Start: 06/06/22 17:41 Freq: Status: Active Protocol: Document 06/06/22 10:30 DCW (Rec: 06/06/22 18:15 DCW [id number]) Functional Tests Apley's Scratch Test Action 1- Left Posterior opposite shoulder Action 1- Right Posterior opposite shoulder Action 2- Left T2 Action 2- Right T2 Action 3- Left T10 Action 3- Right T11 PT-OP-F Manual Assessment Start: 06/06/22 17:41 Freq: Status: Active Protocol: Document 06/06/22 10:30 DCW (Rec: 06/06/22 18:15 DCW [id number]) Manual Assessments Soft Tissue Assessment Soft Tissue Mobility Assessment Hypertonia in right upper trap and scalenes Joint Mobility Assessment Joint Mobility Assessment Elevated right scapula, moderate right scapular winging PT-OP-K Range of Motion Start: 06/06/22 17:41 Freq: Status: Active Protocol: Document 06/06/22 10:30 DCW (Rec: 06/06/22 18:15 DCW [id number]) Shoulder Goniometric Range of Motion Shoulder Right Active Shoulder ROM WFL Yes Testing Position Sitting Flexion 180 Abduction 180 External Rotation at 0 degrees Abduction 55 Internal Rotation Behind Back (text) T11 Comments Pain at end-range flexion in right lateral shoulder Left Active Shoulder ROM WFL Yes Testing Position Sitting Flexion 180 Abduction 180 External Rotation at 0 degrees Abduction 55 Internal Rotation Behind Back (text) T10 PT-OP-L Special Tests Start: 06/06/22 17:41 Freq: Status: Active Protocol: Document 06/06/22 10:30 DCW (Rec: 06/06/22 18:15 DCW [id number]) Special Tests Shoulder Special Tests Passive ER Rotator Cuff Test Results Negative Painful Arc Test Results Negative Lift-Off Rotator Cuff Test Results Negative Patterson Joe Impingement Test Results Positive Right Grind Labrum Test Results Negative Empty Can Test Results Negative Drop Arm Rotator Cuff Test Results Negative Belly Press Test Results Negative Apprehension Test Test Results Negative Anterior Draw Test Results Negative AC Joint Compression Test Results Negative Neural Special Tests- Upper Body Radial Nerve Tension Test Results Negative Median Nerve Tension Test Results Negative PT-OP-M Strength Start: 06/06/22 17:41 Freq: Status: Active Protocol: Document 06/06/22 10:30 DCW (Rec: 06/06/22 18:15 DCW [id number]) Shoulder Strength Shoulder Manual Muscle Testing Right Flexion 4 Good Abduction (C5) 4 Good External Rotation 4+ Good+ Internal Rotation 4+ Good+ Comments Pain with resisted right flexion Left Flexion 4+ Good+ Abduction (C5) 4+ Good+ External Rotation 4+ Good+ Internal Rotation 4+ Good+ PT-OP-Q Treatments Start: 06/06/22 17:41 Freq: Status: Active Protocol: Document 07/12/22 10:30 DCW (Rec: 07/12/22 11:25 DCW [id number]) Cardio Equipment Upper Body Ergometer (UBE) Duration (Minutes) 5 RPM 45 Seat Position 12 Height 3 Therapeutic Exercises Sitting Exercises Shoulder Press Sitting Exercise Name Shoulder Press/ Press Side bilateral Resistance 10# /c PVC Standing Exercises Wall Stretch Standing Exercise Name Wall Stretch - Flexion/ Abduction Other Exercises Resisted Ambulation Other Exercise Name UE side-stepping Resistance Red Manual Therapy Treatment Soft Tissue Mobilization cervical Body Location paraspinals, SO Mobilization Type Rolling,Strumming,Sustained Pressure,Other Intensity/Depth Moderate Body Position Hooklying Comments manual cervical trx 2x 30s - good feedback response R shoulder Body Location UT, LS, scalenes Mobilization Type Rolling,Strumming,Sustained Pressure,Other Intensity/Depth Moderate Body Position Hooklying Comments manual stretching to UT and LS - with LS stretch pt noted discomfort in L ribs from recent fall. Joint Mobilizations GH Joint R GH Direction Inferior Grade III PT-OP-T Assessment and Plan Start: 06/06/22 17:41 Freq: Status: Active Protocol: Document 07/12/22 10:30 DCW (Rec: 07/12/22 11:25 DCW [id number]) Physical Therapy Assessment Impairments Impairments Activity Tolerance,Functional Activities,Functional Mobility ,Pain,Posture,Soft Tissue Mobility,Strength,Tone Goals Two Impairment Pt sleep frequently disturbed due to right shoulder pain Short Term Goal (STG) 06/21/22: Educated pt on sleep positioning strategies to relieve shoulder pain - HO given. Discussed ice to relieve shoulder pain as well. Assistant Professor Of Dietetics Goal (LTG) Pt to report ability to sleep without disturbances due to shoulder pain for one full week LTG Duration 08/15/22 One Impairment Pt does not have an appropriate home exercise program Short Term Goal (STG) Pt to be independent and compliant with an appropriate HEP 06/21/22: HEP review: resisted shoulder shrugs, flexion, abduction. Added to HEP: lower cervical extensor stretch, LS stretch, UT stretch - HO given. STG Duration 07/11/22 Assessment Summary Assessment Pt unable to use stronger T- band for HEP, has returned to Lv 1 during home use. Pt tolerated treatment well, showing some ROM improvements since initial eval. Physical Therapy Plan Frequency and Duration Frequency of Treatment 2x/Week Duration of treatment (weeks) 10 Plan of Care Start Date 06/06/22 Plan of Care End Date 08/15/22 Therapeutic Interventions Therapeutic Interventions Home Exercise Program,Joint Mobilizations,Manual Therapy, Patient/Caregiver Education, Self-Care/Home Management,Soft Tissue Mobilization, Therapeutic Activities, Therapeutic Exercises Modalities Cold Pack/Ice Massage,Hot Packs Next Visit Focus/Plan Next Note Type Treatment Note Next Visit Plan Focus on shoulder strengthening, joint mobilization, improved scapular stabilization
--- NOTE | 2022-07-15 15:15 | PT.OTN ---
Current Diagnoses Pain in right shoulder (07/15/22) Pain in unspecified shoulder (07/15/22) Impingement syndrome of right shoulder (07/15/22) Physical Therapy Treatment Note PT-OP-A Visit Information Start: 06/06/22 17:41 Freq: Status: Active Protocol: Document 07/15/22 14:30 DCW (Rec: 07/15/22 15:15 DCW [id number]) Out-Patient Physical Therapy Visit Information Visit Information Visit Type Treatment Note Visit Start Time 14:30 Visit Stop Time 15:15 Total Visit Minutes 45 Visit Number 6 Number of STOCK RECEIVER Visits 0 Evaluation Information Evaluation Date 06/06/22 PT-OP-B Current Condition Start: 06/06/22 17:41 Freq: Status: Active Protocol: Document 06/06/22 10:30 DCW (Rec: 06/06/22 18:15 DCW [id number]) Current Condition History of Current Condition Onset Date 6 month history Current Complaints R shoulder pain white weight- bearing or side-sleeping History of Current Condition Pt is an 87 year old male well known to this clinic presenting with a six month history of right shoulder pain . Pt admits that he has had shoulder pain off and on for years, but over the past six months, he has noticed that it has been worse with no relief . Pt was just discharged from this clinic last week, which he was attending for falls, balance, and neuropathy. Pt ambulates exclusively with a FWW, which he does tend to rely on excessive UE support while walking. Pt reports if he tries to sleep on his right side, he typically gets shooting pain down his arm and into his hand. Does not have any issues with overhead activities or lifting. Treatment Goals Patient/Caregiver Goals Pt's goal is to decrease shoulder pain, especially at night. PT-OP-C Subjective Start: 06/06/22 17:41 Freq: Status: Active Protocol: Document 07/15/22 14:30 DCW (Rec: 07/15/22 15:15 DCW [id number]) OP-PT Subjective Patient Comments Patient Comments Pt notes he is still waking up occasionally due to his shoulder pain. Reports it is more of a tingling sensation in his right arm, like when your foot falls asleep. PT-OP-E Functional Tests Start: 06/06/22 17:41 Freq: Status: Active Protocol: Document 06/06/22 10:30 DCW (Rec: 06/06/22 18:15 DCW [id number]) Functional Tests Apley's Scratch Test Action 1- Left Posterior opposite shoulder Action 1- Right Posterior opposite shoulder Action 2- Left T2 Action 2- Right T2 Action 3- Left T10 Action 3- Right T11 PT-OP-F Manual Assessment Start: 06/06/22 17:41 Freq: Status: Active Protocol: Document 06/06/22 10:30 DCW (Rec: 06/06/22 18:15 DCW [id number]) Manual Assessments Soft Tissue Assessment Soft Tissue Mobility Assessment Hypertonia in right upper trap and scalenes Joint Mobility Assessment Joint Mobility Assessment Elevated right scapula, moderate right scapular winging PT-OP-K Range of Motion Start: 06/06/22 17:41 Freq: Status: Active Protocol: Document 06/06/22 10:30 DCW (Rec: 06/06/22 18:15 DCW [id number]) Shoulder Goniometric Range of Motion Shoulder Right Active Shoulder ROM WFL Yes Testing Position Sitting Flexion 180 Abduction 180 External Rotation at 0 degrees Abduction 55 Internal Rotation Behind Back (text) T11 Comments Pain at end-range flexion in right lateral shoulder Left Active Shoulder ROM WFL Yes Testing Position Sitting Flexion 180 Abduction 180 External Rotation at 0 degrees Abduction 55 Internal Rotation Behind Back (text) T10 PT-OP-L Special Tests Start: 06/06/22 17:41 Freq: Status: Active Protocol: Document 06/06/22 10:30 DCW (Rec: 06/06/22 18:15 DCW [id number]) Special Tests Shoulder Special Tests Passive ER Rotator Cuff Test Results Negative Painful Arc Test Results Negative Lift-Off Rotator Cuff Test Results Negative Patterson Joe Impingement Test Results Positive Right Grind Labrum Test Results Negative Empty Can Test Results Negative Drop Arm Rotator Cuff Test Results Negative Belly Press Test Results Negative Apprehension Test Test Results Negative Anterior Draw Test Results Negative AC Joint Compression Test Results Negative Neural Special Tests- Upper Body Radial Nerve Tension Test Results Negative Median Nerve Tension Test Results Negative PT-OP-M Strength Start: 06/06/22 17:41 Freq: Status: Active Protocol: Document 06/06/22 10:30 DCW (Rec: 06/06/22 18:15 DCW [id number]) Shoulder Strength Shoulder Manual Muscle Testing Right Flexion 4 Good Abduction (C5) 4 Good External Rotation 4+ Good+ Internal Rotation 4+ Good+ Comments Pain with resisted right flexion Left Flexion 4+ Good+ Abduction (C5) 4+ Good+ External Rotation 4+ Good+ Internal Rotation 4+ Good+ PT-OP-Q Treatments Start: 06/06/22 17:41 Freq: Status: Active Protocol: Document 07/15/22 14:30 DCW (Rec: 07/15/22 15:15 DCW [id number]) Cardio Equipment Upper Body Ergometer (UBE) Duration (Minutes) 5 RPM 45 Seat Position 12 Height 3 Therapeutic Activity Therapeutic Activity Positioning Name Pre-sleep positing in seated position to check for TOS symptoms Manual Therapy Treatment Soft Tissue Mobilization R shoulder Body Location UT, LS, scalenes Mobilization Type Rolling,Strumming,Sustained Pressure,Other Intensity/Depth Moderate Body Position Sitting Comments manual stretching to UT and LS - with LS stretch pt noted discomfort in L ribs from recent fall. Joint Mobilizations GH Joint R GH Direction Inferior Grade III PT-OP-T Assessment and Plan Start: 06/06/22 17:41 Freq: Status: Active Protocol: Document 07/15/22 14:30 DCW (Rec: 07/15/22 15:15 DCW [id number]) Physical Therapy Assessment Impairments Impairments Activity Tolerance,Functional Activities,Functional Mobility ,Pain,Posture,Soft Tissue Mobility,Strength,Tone Goals Two Impairment Pt sleep frequently disturbed due to right shoulder pain Short Term Goal (STG) 06/21/22: Educated pt on sleep positioning strategies to relieve shoulder pain - HO given. Discussed ice to relieve shoulder pain as well. Nurse Head Goal (LTG) Pt to report ability to sleep without disturbances due to shoulder pain for one full week LTG Duration 08/15/22 One Impairment Pt does not have an appropriate home exercise program Short Term Goal (STG) Pt to be independent and compliant with an appropriate HEP 06/21/22: HEP review: resisted shoulder shrugs, flexion, abducation. Added to HEP: lower cervical extensor stretch, LS stretch, UT stretch - HO given. STG Duration 07/11/22 Assessment Summary Assessment Discussed TOS positioning prior to bed to see if this helps limit tingling and pain during the night. Pt instructed to sit with pillows propping up his arms into a should shrug for ~15 minutes to see if this makes him symptomatic. Physical Therapy Plan Frequency and Duration Frequency of Treatment 2x/Week Duration of treatment (weeks) 10 Plan of Care Start Date 06/06/22 Plan of Care End Date 08/15/22 Therapeutic Interventions Therapeutic Interventions Home Exercise Program,Joint Mobilizations,Manual Therapy, Patient/Caregiver Education, Self-Care/Home Management,Soft Tissue Mobilization, Therapeutic Activities, Therapeutic Exercises Modalities Cold Pack/Ice Massage,Hot Packs Next Visit Focus/Plan Next Note Type Treatment Note Next Visit Plan Focus on shoulder strengthening, joint mobilization, improved scapular stabilization
--- NOTE | 2022-07-26 14:32 | PT.OTN ---
Current Diagnoses Pain in right shoulder (07/26/22) Pain in unspecified shoulder (07/26/22) Impingement syndrome of right shoulder (07/26/22) Physical Therapy Treatment Note PT-OP-A Visit Information Start: 06/06/22 17:41 Freq: Status: Active Protocol: Document 07/26/22 13:45 DCW (Rec: 07/26/22 14:32 DCW [id number]) Out-Patient Physical Therapy Visit Information Visit Information Visit Type Treatment Note Visit Start Time 13:45 Visit Stop Time 14:30 Total Visit Minutes 45 Visit Number 7 Number of COLLECTION SUPPORT SPECIALIST Visits 0 Evaluation Information Evaluation Date 06/06/22 PT-OP-B Current Condition Start: 06/06/22 17:41 Freq: Status: Active Protocol: Document 06/06/22 10:30 DCW (Rec: 06/06/22 18:15 DCW [id number]) Current Condition History of Current Condition Onset Date 6 month history Current Complaints R shoulder pain white weight- bearing or side-sleeping History of Current Condition Pt is an 87 year old male well known to this clinic presenting with a six month history of right shoulder pain . Pt admits that he has had shoulder pain off and on for years, but over the past six months, he has noticed that it has been worse with no relief . Pt was just discharged from this clinic last week, which he was attending for falls, balance, and neuropathy. Pt ambulates exclusively with a FWW, which he does tend to rely on excessive UE support while walking. Pt reports if he tries to sleep on his right side, he typically gets shooting pain down his arm and into his hand. Does not have any issues with overhead activities or lifting. Treatment Goals Patient/Caregiver Goals Pt's goal is to decrease shoulder pain, especially at night. PT-OP-C Subjective Start: 06/06/22 17:41 Freq: Status: Active Protocol: Document 07/26/22 13:45 DCW (Rec: 07/26/22 14:32 DCW [id number]) OP-PT Subjective Patient Comments Patient Comments I don't think there has been much change. PT-OP-E Functional Tests Start: 06/06/22 17:41 Freq: Status: Active Protocol: Document 06/06/22 10:30 DCW (Rec: 06/06/22 18:15 DCW [id number]) Functional Tests Apley's Scratch Test Action 1- Left Posterior opposite shoulder Action 1- Right Posterior opposite shoulder Action 2- Left T2 Action 2- Right T2 Action 3- Left T10 Action 3- Right T11 PT-OP-F Manual Assessment Start: 06/06/22 17:41 Freq: Status: Active Protocol: Document 06/06/22 10:30 DCW (Rec: 06/06/22 18:15 DCW [id number]) Manual Assessments Soft Tissue Assessment Soft Tissue Mobility Assessment Hypertonia in right upper trap and scalenes Joint Mobility Assessment Joint Mobility Assessment Elevated right scapula, moderate right scapular winging PT-OP-K Range of Motion Start: 06/06/22 17:41 Freq: Status: Active Protocol: Document 06/06/22 10:30 DCW (Rec: 06/06/22 18:15 DCW [id number]) Shoulder Goniometric Range of Motion Shoulder Right Active Shoulder ROM WFL Yes Testing Position Sitting Flexion 180 Abduction 180 External Rotation at 0 degrees Abduction 55 Internal Rotation Behind Back (text) T11 Comments Pain at end-range flexion in right lateral shoulder Left Active Shoulder ROM WFL Yes Testing Position Sitting Flexion 180 Abduction 180 External Rotation at 0 degrees Abduction 55 Internal Rotation Behind Back (text) T10 PT-OP-L Special Tests Start: 06/06/22 17:41 Freq: Status: Active Protocol: Document 06/06/22 10:30 DCW (Rec: 06/06/22 18:15 DCW [id number]) Special Tests Shoulder Special Tests Passive ER Rotator Cuff Test Results Negative Painful Arc Test Results Negative Lift-Off Rotator Cuff Test Results Negative Patterson Joe Impingement Test Results Positive Right Grind Labrum Test Results Negative Empty Can Test Results Negative Drop Arm Rotator Cuff Test Results Negative Belly Press Test Results Negative Apprehension Test Test Results Negative Anterior Draw Test Results Negative AC Joint Compression Test Results Negative Neural Special Tests- Upper Body Radial Nerve Tension Test Results Negative Median Nerve Tension Test Results Negative PT-OP-M Strength Start: 06/06/22 17:41 Freq: Status: Active Protocol: Document 06/06/22 10:30 DCW (Rec: 06/06/22 18:15 DCW [id number]) Shoulder Strength Shoulder Manual Muscle Testing Right Flexion 4 Good Abduction (C5) 4 Good External Rotation 4+ Good+ Internal Rotation 4+ Good+ Comments Pain with resisted right flexion Left Flexion 4+ Good+ Abduction (C5) 4+ Good+ External Rotation 4+ Good+ Internal Rotation 4+ Good+ PT-OP-Q Treatments Start: 06/06/22 17:41 Freq: Status: Active Protocol: Document 07/26/22 13:45 DCW (Rec: 07/26/22 14:32 DCW [id number]) Cardio Equipment Upper Body Ergometer (UBE) Duration (Minutes) 5 RPM 45 Seat Position 12 Height 3 Therapeutic Exercises Sitting Exercises Shoulder Press Sitting Exercise Name Shoulder Press/ Press Side bilateral Resistance 10# /c PVC Shrugs Sitting Exercise Name Shoulder Shrugs Side bilateral Resistance 4# Flexion Sitting Exercise Name Shoulder Flexion Side bilateral Resistance 4# Abduction Sitting Exercise Name Shoulder Abduction Side bilateral Resistance 4# Other Exercises Resisted Ambulation Other Exercise Name UE side-stepping Resistance Red Manual Therapy Treatment Soft Tissue Mobilization cervical Body Location paraspinals, SO Mobilization Type Rolling,Strumming,Sustained Pressure,Other Intensity/Depth Moderate Body Position Hooklying Comments manual cervical trx 2x 30s - good feedback response R shoulder Body Location UT, LS, scalenes Mobilization Type Rolling,Strumming,Sustained Pressure,Other Intensity/Depth Moderate Body Position Hooklying Comments manual stretching to UT and LS - with LS stretch pt noted discomfort in L ribs from recent fall. Joint Mobilizations GH Joint R GH Direction Inferior Grade III PT-OP-T Assessment and Plan Start: 06/06/22 17:41 Freq: Status: Active Protocol: Document 07/26/22 13:45 DCW (Rec: 07/26/22 14:32 DCW [id number]) Physical Therapy Assessment Impairments Impairments Activity Tolerance,Functional Activities,Functional Mobility ,Pain,Posture,Soft Tissue Mobility,Strength,Tone Goals Two Impairment Pt sleep frequently disturbed due to right shoulder pain Short Term Goal (STG) 06/21/22: Educated pt on sleep positioning strategies to relieve shoulder pain - HO given. Discussed ice to relieve shoulder pain as well. Heat And Vent Aircraft Mechanic Goal (LTG) Pt to report ability to sleep without disturbances due to shoulder pain for one full week LTG Duration 08/15/22 One Impairment Pt does not have an appropriate home exercise program Short Term Goal (STG) Pt to be independent and compliant with an appropriate HEP 06/21/22: HEP review: resisted shoulder shrugs, flexion, abduction. Added to HEP: lower cervical extensor stretch, LS stretch, UT stretch - HO given. STG Duration 07/11/22 Assessment Summary Assessment Pt not yet tried TOS positioning, reports he will by next visit. Reassessment will be performed next visit, if pt has reached progress plateau, will likely discharge afterward. Physical Therapy Plan Frequency and Duration Frequency of Treatment 2x/Week Duration of treatment (weeks) 10 Plan of Care Start Date 06/06/22 Plan of Care End Date 08/15/22 Therapeutic Interventions Therapeutic Interventions Home Exercise Program,Joint Mobilizations,Manual Therapy, Patient/Caregiver Education, Self-Care/Home Management,Soft Tissue Mobilization, Therapeutic Activities, Therapeutic Exercises Modalities Cold Pack/Ice Massage,Hot Packs Next Visit Focus/Plan Next Note Type Progress Note Next Visit Plan Focus on shoulder strengthening, joint mobilization, improved scapular stabilization
--- NOTE | 2022-07-29 15:13 | PT.OTN ---
Current Diagnoses Pain in right shoulder (07/29/22) Pain in unspecified shoulder (07/29/22) Impingement syndrome of right shoulder (07/29/22) Physical Therapy Treatment Note PT-OP-A Visit Information Start: 06/06/22 17:41 Freq: Status: Active Protocol: Document 07/29/22 14:30 DCW (Rec: 07/29/22 15:12 DCW [id number]) Out-Patient Physical Therapy Visit Information Visit Information Visit Type Discharge Summary Visit Start Time 14:30 Visit Stop Time 15:00 Total Visit Minutes 30 Visit Number 8 Number of SHUTDOWN PLANNER Visits 0 Evaluation Information Evaluation Date 06/06/22 PT-OP-B Current Condition Start: 06/06/22 17:41 Freq: Status: Active Protocol: Document 06/06/22 10:30 DCW (Rec: 06/06/22 18:15 DCW [id number]) Current Condition History of Current Condition Onset Date 6 month history Current Complaints R shoulder pain white weight- bearing or side-sleeping History of Current Condition Pt is an 87 year old male well known to this clinic presenting with a six month history of right shoulder pain . Pt admits that he has had shoulder pain off and on for years, but over the past six months, he has noticed that it has been worse with no relief . Pt was just discharged from this clinic last week, which he was attending for falls, balance, and neuropathy. Pt ambulates exclusively with a FWW, which he does tend to rely on excessive UE support while walking. Pt reports if he tries to sleep on his right side, he typically gets shooting pain down his arm and into his hand. Does not have any issues with overhead activities or lifting. Treatment Goals Patient/Caregiver Goals Pt's goal is to decrease shoulder pain, especially at night. PT-OP-C Subjective Start: 06/06/22 17:41 Freq: Status: Active Protocol: Document 07/29/22 14:30 DCW (Rec: 07/29/22 15:12 DCW [id number]) OP-PT Subjective Patient Comments Patient Comments I'm not sure if I can even tell if there has been a change or not, I live with it 20/02. PT-OP-E Functional Tests Start: 06/06/22 17:41 Freq: Status: Active Protocol: Document 07/29/22 14:30 DCW (Rec: 07/29/22 15:06 DCW [id number]) Functional Tests Apley's Scratch Test Action 1- Left Posterior opposite shoulder Action 1- Right Posterior opposite shoulder Action 2- Left T2 Action 2- Right T2 Action 3- Left T9 Action 3- Right T9 PT-OP-F Manual Assessment Start: 06/06/22 17:41 Freq: Status: Active Protocol: Document 07/29/22 14:30 DCW (Rec: 07/29/22 15:06 DCW [id number]) Manual Assessments Soft Tissue Assessment Soft Tissue Mobility Assessment Hypertonia in right upper trap and scalenes Joint Mobility Assessment Joint Mobility Assessment Elevated right scapula PT-OP-K Range of Motion Start: 06/06/22 17:41 Freq: Status: Active Protocol: Document 07/29/22 14:30 DCW (Rec: 07/29/22 15:06 DCW [id number]) Shoulder Goniometric Range of Motion Shoulder Right Active Shoulder ROM WFL Yes Testing Position Sitting Flexion 180 Abduction 180 External Rotation at 0 degrees Abduction 57 Internal Rotation Behind Back (text) T9 Left Active Shoulder ROM WFL Yes Testing Position Sitting Flexion 180 Abduction 180 External Rotation at 0 degrees Abduction 62 Internal Rotation Behind Back (text) T9 PT-OP-L Special Tests Start: 06/06/22 17:41 Freq: Status: Active Protocol: Document 07/29/22 14:30 DCW (Rec: 07/29/22 15:06 DCW [id number]) Special Tests Shoulder Special Tests Passive ER Rotator Cuff Test Results Negative Painful Arc Test Results Negative Lift-Off Rotator Cuff Test Results Negative Patterson Joe Impingement Test Results Positive Right Drop Arm Rotator Cuff Test Results Negative Belly Press Test Results Negative PT-OP-M Strength Start: 06/06/22 17:41 Freq: Status: Active Protocol: Document 07/29/22 14:30 DCW (Rec: 07/29/22 15:06 DCW [id number]) Shoulder Strength Shoulder Manual Muscle Testing Right Flexion 4+ Good+ Abduction (C5) 4+ Good+ External Rotation 5 Normal Internal Rotation 5 Normal Comments Pain with resisted right flexion Left Flexion 4+ Good+ Abduction (C5) 4+ Good+ External Rotation 5 Normal Internal Rotation 5 Normal PT-OP-Q Treatments Start: 06/06/22 17:41 Freq: Status: Active Protocol: Document 07/26/22 13:45 DCW (Rec: 07/26/22 14:32 DCW [id number]) Cardio Equipment Upper Body Ergometer (UBE) Duration (Minutes) 5 RPM 45 Seat Position 12 Height 3 Therapeutic Exercises Sitting Exercises Shoulder Press Sitting Exercise Name Shoulder Press/ Press Side bilateral Resistance 10# /c PVC Shrugs Sitting Exercise Name Shoulder Shrugs Side bilateral Resistance 4# Flexion Sitting Exercise Name Shoulder Flexion Side bilateral Resistance 4# Abduction Sitting Exercise Name Shoulder Abduction Side bilateral Resistance 4# Other Exercises Resisted Ambulation Other Exercise Name UE side-stepping Resistance Red Manual Therapy Treatment Soft Tissue Mobilization cervical Body Location paraspinals, SO Mobilization Type Rolling,Strumming,Sustained Pressure,Other Intensity/Depth Moderate Body Position Hooklying Comments manual cervical trx 2x 30s - good feedback response R shoulder Body Location UT, LS, scalenes Mobilization Type Rolling,Strumming,Sustained Pressure,Other Intensity/Depth Moderate Body Position Hooklying Comments manual stretching to UT and LS - with LS stretch pt noted discomfort in L ribs from recent fall. Joint Mobilizations GH Joint R GH Direction Inferior Grade III PT-OP-T Assessment and Plan Start: 06/06/22 17:41 Freq: Status: Active Protocol: Document 07/29/22 14:30 DCW (Rec: 07/29/22 15:12 DCW [id number]) Physical Therapy Assessment Impairments Impairments Activity Tolerance,Functional Activities,Functional Mobility ,Pain,Posture,Soft Tissue Mobility,Strength,Tone Goals Two Impairment Pt sleep frequently disturbed due to right shoulder pain Short Term Goal (STG) 06/21/22: Educated pt on sleep positioning strategies to relieve shoulder pain - HO given. Discussed ice to relieve shoulder pain as well. Awning Hanger Goal (LTG) Pt to report ability to sleep without disturbances due to shoulder pain for one full week LTG Duration 08/15/22 - minimal change One Impairment Pt does not have an appropriate home exercise program Short Term Goal (STG) Pt to be independent and compliant with an appropriate HEP 06/21/22: HEP review: resisted shoulder shrugs, flexion, abducation. Added to HEP: lower cervical extensor stretch, LS stretch, UT stretch - HO given. STG Duration Met Assessment Summary Assessment Pt objectively doing much better, pain-free ROM largely WNL, special testing negative except for Patterson-Joe. Pt still struggling subjectively with right shoulder pain either when sleeping or when putting too much weight through his UEs while walking with FWW. Discharge pt shoulder pain from skilled therapy at this time. Pt will likely return at a later date with a new referral in order to continue therapy for his balance and gait. Physical Therapy Plan Frequency and Duration Frequency of Treatment 2x/Week Duration of treatment (weeks) 10 Plan of Care Start Date 06/06/22 Plan of Care End Date 08/15/22 Therapeutic Interventions Therapeutic Interventions Home Exercise Program,Joint Mobilizations,Manual Therapy, Patient/Caregiver Education, Self-Care/Home Management,Soft Tissue Mobilization, Therapeutic Activities, Therapeutic Exercises Modalities Cold Pack/Ice Massage,Hot Packs Discharge Physical Therapy Discharge Comments Discharge shoulder chart, will return at latere date to continue working with therapy for balance and gait. Next Visit Focus/Plan Next Note Type Discharge Summary
== END 2022-08-02 08:51 | disposition home or self-care (01) ==
LOC: PHYS 14:30
PROVIDERS: Family Provider Internal Medicine; PCP Internal Medicine; Referring Provider Internal Medicine; Visit Provider Internal Medicine
DX: M25.519 Pain in unspecified shoulder (principal); M25.511 Pain in right shoulder; M75.41 Impingement syndrome of right shoulder
CPT/HCPCS: 97110; 97140; 97162; 97530

== ENCOUNTER → 2022-08-09 07:22 | Outpatient (CLI) | payer MEDICARE, OTHER, SELFPAY ==
[2022-01-18 15:17] VITALS: BMI 25.8
[2022-08-09 08:01] LABS: Add Manual Diff / Slide Review NO; Basophils Absolute Auto 0 /uL (0-100); Basophils Percent Auto 0.6 % (0-2); Eosinophils Absolute Auto 200 /uL (0-450); Eosinophils Percent Auto 2.7 % (2-4); Hematocrit 41.6 % (41-53); Hemoglobin 13.8 g/dL (13.5-17.5); Lymphocytes Absolute Auto 2200 /uL (1100-4500); Lymphocytes Percent Auto 33.1 % (25-40); Mean Corpuscular HGB Conc 33.1 % (30-36); Mean Corpuscular Hemoglobin 32.3 PG (26-34); Mean Corpuscular Volume 97.5 fL (80-100); Monocytes Absolute Auto 700 /uL (0-900); Monocytes Percent Auto 9.8 % (3-14); Neutrophils Absolute Auto 3600 /uL (1500-7000); Neutrophils Percent Auto 53.8 % (50-75); Platelet Count 178 X10^3/uL (150-400); Red Blood Cell Count 4.27 X10^6/uL (4.5-5.9); Red Cell Distribution Width 13.8 % (11.6-14.8); White Blood Cell Count 6.7 X10^3/uL (4.5-11.0)
[2022-08-09 08:36] LABS: Alanine Aminotransferase 32 IU/L (<50); Albumin 4.1 g/dL (3.5-5.0); Albumin Globulin Ratio 1.3 (1.0-2.8); Alkaline Phosphatase 96 U/L (38-126); Aspartate Aminotransferase 36 IU/L (17-59); BUN Creatinine Ratio 31.5 (6-22); Bilirubin Total 0.7 mg/dL (0.2-1.3); Blood Urea Nitrogen 28 mg/dL (9-20); Calcium 8.9 mg/dL (8.4-10.2); Carbon Dioxide 25 mmol/L (22-32); Chloride 106 mmol/L (98-107); Cholesterol 181 mg/dL (140-199); Estimated Glomerular Filt Rate > 60 mL/min (>60); Globulin 3.1 g/dL (1.7-4.1); Glucose 99 mg/dL (80-110); HDL Cholesterol 39 mg/dL (40-60); HEMOLYSIS < 15 (0-50); LDL Cholesterol Calculated 103 mg/dL (<100); Potassium 5.3 mmol/L (3.4-5.1); Sodium 141 mmol/L (137-145); Total Protein 7.2 g/dL (6.3-8.2); Triglycerides 196 mg/dL (35-150)
== END ==
PROVIDERS: Family Provider Internal Medicine; PCP Internal Medicine; Referring Provider Internal Medicine Interventional Cardiology; Visit Provider Internal Medicine Interventional Cardiology
DX: E78.5 Hyperlipidemia, unspecified (principal); I73.9 Peripheral vascular disease, unspecified; I25.10 Atherosclerotic heart disease of native coronary artery without angina pectoris
CPT/HCPCS: 36415; 80053; 80061; 85025

== ENCOUNTER 2022-10-19 11:15 | Outpatient (RCR) | payer MEDICARE, OTHER, SELFPAY ==
[2022-01-18 15:17] VITALS: BMI 25.8
--- NOTE | 2022-08-09 17:30 | PT.OIE ---
Current Diagnoses Other chronic pain (08/09/22) Dorsalgia, unspecified (08/09/22) Pain in right leg (08/09/22) Pain in left leg (08/09/22) Unsteadiness on feet (08/09/22) Other abnormalities of gait and mobility (08/09/22) Past Medical History (Last Updated 05/30/22 @ 15:54 by Dalton Proctor MD) Acromioclavicular joint separation, type 2 CAD (coronary artery disease) (~2007) Cervical stenosis of spinal canal Chronic back pain Colon polyps (~2010) COVID-19 (~12/2021) CVA (cerebral vascular accident) (2015) Facet arthropathy, lumbar Foraminal stenosis of lumbosacral region Gait instability H/O: stroke (04/10/16) Hyperlipidemia Hypertension (~2016) Lumbar post-laminectomy syndrome Lumbosacral spondylosis Measles Mumps Neuropathy Osteoarthritis PAD (peripheral artery disease) Peripheral neuropathy (~1979) Peripheral vascular disease Rotator cuff impingement syndrome of right shoulder Sick sinus syndrome Skin cancer Spinal stenosis Spinal stenosis of lumbar region without neurogenic claudication Spondylolisthesis at L4-L5 level Squamous cell skin cancer (~2015) Syncope Vertigo (~2013) Vision disorder Past Surgical History (Last Reviewed 01/20/22 @ 08:10 by Dalton Proctor MD) History of lumbar laminectomy (1988) History of lumbar laminectomy (1952) History of surgery (2007) History of surgery (1952) History of vasectomy Hx of bilateral cataract extraction 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) Visit Care Team Role Provider Type Dalton Proctor MD Attending Provider Physician Family Provider Primary Care Provider Referring Provider Specialty: Internal Medicine Address: [address] [place] [address], [address], [facility] Email: [email or web address] Physical Therapy Initial Evaluation PT-OP-A Visit Information Start: 08/09/22 17:33 Freq: Status: Active Protocol: Document 08/09/22 16:45 DCW (Rec: 08/09/22 17:35 DCW [id number]) Out-Patient Physical Therapy Visit Information Visit Information Visit Type Initial Evaluation Visit Start Time 16:45 Visit Stop Time 17:25 Total Visit Minutes 40 Visit Number 1 Number of FACE MAN Visits 0 Evaluation Information Evaluation Date 08/09/22 PT-OP-B Current Condition Start: 08/09/22 17:33 Freq: Status: Active Protocol: Document 08/09/22 16:45 DCW (Rec: 08/09/22 17:47 DCW [id number]) Current Condition History of Current Condition Onset Date Multi-year history Current Complaints Poor balance, LE weakness History of Current Condition Pt is an 87 year old male well known to this clinic presenting with LE weakness, gait disturbances, and poor balance. Pt has been seen at this clinic for these complaints before, most recently between December and April 2022. At time of discharge, pt had largely plateaued, and it was decided to perform a new evaluation for his shoulder pain. Pt was seen for two months for his shoulder, but was unable to progress, largely because he shoulders were constantly sore due to overuse of FWW secondary to his ongoing imbalance and gait difficulty, and therefore decided to discharge shoulders and return once again with a new referral for his balance and gait in an attempt to decrease reliance on UEs while walking . Pt feels leg weakness and imbalance largely began following lumbar surgery in Nov, 2020. Pt fatigues quickly , has difficulty with anything which relies on leg strength or tolerance to activity. Unable to use LEs to stand up or simply stand without UE support. Does note he has not had any falls recently. Requests more intense, difficult exercises, since he plateaued with his last round of PT. Treatment Goals Patient/Caregiver Goals Decrease use of FWW PT-OP-C Subjective Start: 08/09/22 17:33 Freq: Status: Active Protocol: Document 08/09/22 16:45 DCW (Rec: 08/09/22 17:35 DCW [id number]) OP-PT Subjective Patient Comments Patient Comments I was talking to my , and I'm going to try this agin, but if we still don't get much progress, I may just bag it. Patient Reported Progress Same PT-OP-D Balance Start: 08/09/22 17:33 Freq: Status: Active Protocol: Document 08/09/22 16:45 DCW (Rec: 08/09/22 17:52 DCW [id number]) OP-PT Balance Assessment Sitting Balance Static Sitting Balance Ability Normal Dynamic Sitting Balance Ability Normal Standing Balance Static Standing Balance Ability Poor Dynamic Standing Balance Ability Poor Device Used FWW Balance Tests Other Other Balance Tests Performed Standing double leg without UE support: 9.7 max, three other attempts were 1.7, 1.6 , and 7.8 Mazariegos Fall Scale Copyright Permission PT-OP-E Functional Tests Start: 08/09/22 17:33 Freq: Status: Active Protocol: Document 08/09/22 16:45 DCW (Rec: 08/09/22 17:52 DCW [id number]) Functional Tests 2 Minute Walk Test Distance FWW Device Used 168' Comments 1.4 ft/sec Five Times Sit to Stand Test Comments Unable to perform one UE-free sit<->stand Timed Up and Go (TUG) Score 21.57 Comments Three-trial average (22.27, 21 .20, 21.24) TUG Impairment Rating 100% Impaired (Score 20) PT-OP-G Mobility & Gait Start: 08/09/22 17:33 Freq: Status: Active Protocol: Document 08/09/22 16:45 DCW (Rec: 08/09/22 17:52 DCW [id number]) OP Gait Assessment Gait Deviations General Gait Pattern Decreased Stride Length, Decreased Feet Clearance,Wide Based Gait Factors Limiting Gait Function Factors Limiting Gait Function Decreased Activity Tolerance, Decreased Strength,Poor Balance Comments Gait Comments Pt ambulates with left foot slap and steppage gait due to left ankle weakness PT-OP-M Strength Start: 08/09/22 17:33 Freq: Status: Active Protocol: Document 08/09/22 16:45 DCW (Rec: 08/09/22 17:52 DC [id number]) Hip Strength Hip Manual Muscle Testing Right Flexion (L2) 4- Good- Abduction 4 Good Adduction 4 Good External Rotation 4- Good- Internal Rotation 4- Good- Left Flexion (L2) 4 Good Abduction 4 Good Adduction 4 Good External Rotation 4- Good- Internal Rotation 4- Good- Knee Strength Knee Manual Muscle Testing Right Flexion (S2) 3+ Fair+ Extension (L3) 4- Good- Left Flexion (S2) 3+ Fair+ Extension (L3) 4- Good- Ankle/Foot Strength Ankle and Foot Manual Muscle Testing Right Dorsiflexion (L4) 3- Fair- Left Dorsiflexion (L4) 2- Poor- PT-OP-Q Treatments Start: 08/09/22 17:33 Freq: Status: Active Protocol: Document 08/09/22 16:45 DCW (Rec: 08/09/22 17:36 DCW [id number]) Gym Equipment Therapeutic Ball Bridging Exercise Details Bridging, feet on ball, /c and /s UE support Ball Size/Color Red - 55 cm Body Position Supine Therapeutic Exercises Supine Exercises Bridging Supine Exercise Name Bridging Comments cues for glute contraction PT-OP-T Assessment and Plan Start: 08/09/22 17:33 Freq: Status: Active Protocol: Document 08/09/22 16:45 DCW (Rec: 08/10/22 09:51 DCW [id number]) Physical Therapy Assessment Rehab Potential Rehabilitation Potential Fair Evaluation Complexity Number of Personal Factors/Comorbidities 3 or More Number of Body Systems Impaired 4 or More Clinical Presentation at Evaluation Evolving Impairments Impairments Activity Tolerance,Balance, Functional Activities, Functional Mobility,Gait,Pain, Strength Goals Three Impairment Pt unable to stand longer than 10 seconds without support Guard Sergeant Goal (LTG) Pt to increased double leg stance time without support to >20 seconds to show increased LE strength and improved ankle strategies. LTG Duration 11/07/22 Two Impairment Pt ambulates with a gait speed of 1.4 ft.sec Impairment A gait speed of less than 1.97 ft/sec is indicative of increased likelihood of further functional decline in older adults. Prison Goal (LTG) Pt to increase gait distance to 709' using a FWW during a 6 minute walk test in order to demonstrate decreased risk of functional decline LTG Duration 11/07/22 One Impairment Pt does not have an appropriate home exercise program Short Term Goal (STG) Pt to be independent and compliant with an appropriate HEP STG Duration 10/07/22 Assessment Summary Assessment Pt presents with LE weakness, decreased balance, poor activity tolerance, and significant reliance on his upper extremities for transfers, gait, and balance. Pt feels this all traces back to his lumbar surgery ~2 years ago. Pt has undergone therapy for these complaints in the past with minimal improvement, however pt returns again asking for more intense therapy with increased exercise difficulty. This may be difficult for pt to tolerate, as he has relatively poor activity tolerance and was typically very fatigued by end of session when performing much more gentle exercise, but may be worthwhile to try, as he had previously hit a progress plateau. Pt's biggest limiting factor is ankle weakness, left worse than right, which impacts his ability to ambulate without steppage gait , and decreases ability to perform ankle strategies to help stability. Skilled PT should focus mainly on ankle strength, balance, gait, and increasing activity tolerance Physical Therapy Plan Frequency and Duration Frequency of Treatment 2x/Week Plan of Care Start Date 08/09/22 Plan of Care End Date 11/07/22 Therapeutic Interventions Therapeutic Interventions Balance Training,Gait Training ,Home Exercise Program,Joint Mobilizations,Manual Therapy, Neuromuscular Re-education, Patient/Caregiver Education, Self-Care/Home Management,Soft Tissue Mobilization, Therapeutic Activities, Therapeutic Exercises Next Visit Focus/Plan Next Note Type Treatment Note Next Visit Plan LE strengthening, balance training
--- NOTE | 2022-08-09 17:30 | PT.OPPOC ---
Physical, Occupational & Speech Therapy At [facility] Current Diagnoses Other chronic pain (08/09/22) Dorsalgia, unspecified (08/09/22) Pain in right leg (08/09/22) Pain in left leg (08/09/22) Unsteadiness on feet (08/09/22) Other abnormalities of gait and mobility (08/09/22) Visit Care Team Role Provider Type Dalton Proctor MD Attending Provider Physician Family Provider Primary Care Provider Referring Provider Specialty: Internal Medicine Address: [address] [place] [address], [address], [place], [facility] Email: [email or web address] Plan Of Care PT-OP-T Assessment and Plan Start: 08/09/22 17:33 Freq: Status: Active Protocol: Document 08/09/22 16:45 DCW (Rec: 08/10/22 09:51 DCW [id number]) Physical Therapy Assessment Rehab Potential Rehabilitation Potential Fair Evaluation Complexity Number of Personal Factors/Comorbidities 3 or More Number of Body Systems Impaired 4 or More Clinical Presentation at Evaluation Evolving Impairments Impairments Activity Tolerance,Balance, Functional Activities, Functional Mobility,Gait,Pain, Strength Goals Three Impairment Pt unable to stand longer than 10 seconds without support Custodial Goal (LTG) Pt to increased double leg stance time without support to >20 seconds to show increased LE strength and improved ankle strategies. LTG Duration 11/07/22 Two Impairment Pt ambulates with a gait speed of 1.4 ft.sec Impairment A gait speed of less than 1.97 ft/sec is indicative of increased likelihood of further functional decline in older adults. Custodial Goal (LTG) Pt to increase gait distance to 709' using a FWW during a 6 minute walk test in order to demonstrate decreased risk of functional decline LTG Duration 11/07/22 One Impairment Pt does not have an appropriate home exercise program Short Term Goal (STG) Pt to be independent and compliant with an appropriate HEP STG Duration 10/07/22 Assessment Summary Assessment Pt presents with LE weakness, decreased balance, poor activity tolerance, and significant reliance on his upper extremities for transfers, gait, and balance. Pt feels this all traces back to his lumbar surgery ~2 years ago. Pt has undergone therapy for these complaints in the past with minimal improvement, however pt returns again asking for more intense therapy with increased exercise difficulty. This may be difficult for pt to tolerate, as he has relatively poor activity tolerance and was typically very fatigued by end of session when performing much more gentle exercise, but may be worthwhile to try, as he had previously hit a progress plateau. Pt's biggest limiting factor is ankle weakness, left worse than right, which impacts his ability to ambulate without steppage gait , and decreases ability to perform ankle strategies to help stability. Skilled PT should focus mainly on ankle strength, balance, gait, and increasing activity tolerance Physical Therapy Plan Frequency and Duration Frequency of Treatment 2x/Week Plan of Care Start Date 08/09/22 Plan of Care End Date 11/07/22 Therapeutic Interventions Therapeutic Interventions Balance Training,Gait Training ,Home Exercise Program,Joint Mobilizations,Manual Therapy, Neuromuscular Re-education, Patient/Caregiver Education, Self-Care/Home Management,Soft Tissue Mobilization, Therapeutic Activities, Therapeutic Exercises Next Visit Focus/Plan Next Note Type Treatment Note Next Visit Plan LE strengthening, balance training Plan of Care Dates Plan of Care Start Date 08/09/22 Plan of Care End Date 11/07/22 Electronically Signed by: Eligio Trent, PT 08/10/22 0953 If you are in agreement with this Plan of Care, please return a signed and dated copy. I have reviewed this Plan of Care and certify that the skilled therapy services above are required to meet the patient?s needs. Physician Signature Date Printed Name and Credentials Clinical Instructor Signature Printed Name and Credentials
--- NOTE | 2022-08-17 14:32 | PT.OTN ---
Current Diagnoses Other chronic pain (08/17/22) Dorsalgia, unspecified (08/17/22) Pain in right leg (08/17/22) Pain in left leg (08/17/22) Unsteadiness on feet (08/17/22) Other abnormalities of gait and mobility (08/17/22) Physical Therapy Treatment Note PT-OP-A Visit Information Start: 08/09/22 17:33 Freq: Status: Active Protocol: Document 08/17/22 13:45 DCW (Rec: 08/17/22 14:32 DCW [id number]) Out-Patient Physical Therapy Visit Information Visit Information Visit Type Treatment Note Visit Start Time 13:45 Visit Stop Time 14:30 Total Visit Minutes 45 Visit Number 2 Number of PHYSICAL MEDICINE TEACHER Visits 0 Evaluation Information Evaluation Date 08/09/22 PT-OP-B Current Condition Start: 08/09/22 17:33 Freq: Status: Active Protocol: Document 08/09/22 16:45 DCW (Rec: 08/09/22 17:47 DCW [id number]) Current Condition History of Current Condition Onset Date Multi-year history Current Complaints Poor balance, LE weakness History of Current Condition Pt is an 87 year old male well known to this clinic presenting with LE weakness, gait disturbances, and poor balance. Pt has been seen at this clinic for these complaints before, most recently between December and April 2022. At time of discharge, pt had largely plateaued, and it was decided to perform a new evaluation for his shoulder pain. Pt was seen for two months for his shoulder, but was unable to progress, largely because he shoulders were constantly sore due to overuse of FWW secondary to his ongoing imbalance and gait difficulty, and therefore decided to discharge shoulders and return once again with a new referral for his balance and gait in an attempt to decrease reliance on UEs while walking . Pt feels leg weakness and imbalance largely began following lumbar surgery in Nov, 2020. Pt fatigues quickly , has difficulty with anything which relies on leg strength or tolerance to activity. Unable to use LEs to stand up or simply stand without UE support. Does note he has not had any falls recently. Requests more intense, difficult exercises, since he plateaued with his last round of PT. Treatment Goals Patient/Caregiver Goals Decrease use of FWW PT-OP-C Subjective Start: 08/09/22 17:33 Freq: Status: Active Protocol: Document 08/17/22 13:45 DCW (Rec: 08/17/22 14:32 DCW [id number]) OP-PT Subjective Patient Comments Patient Comments Pt notes leg bruising and cuts following a fall in a restaurant, reports he caught the leg of his walker on a rug and flipped forward. Back has been sore, so he has not been able to do bridging. PT-OP-D Balance Start: 08/09/22 17:33 Freq: Status: Active Protocol: Document 08/09/22 16:45 DCW (Rec: 08/09/22 17:52 DCW [id number]) OP-PT Balance Assessment Sitting Balance Static Sitting Balance Ability Normal Dynamic Sitting Balance Ability Normal Standing Balance Static Standing Balance Ability Poor Dynamic Standing Balance Ability Poor Device Used FWW Balance Tests Other Other Balance Tests Performed Standing double leg without UE support: 9.7 max, three other attempts were 1.7, 1.6 , and 7.8 Mazariegos Fall Scale Copyright Permission PT-OP-E Functional Tests Start: 08/09/22 17:33 Freq: Status: Active Protocol: Document 08/09/22 16:45 DCW (Rec: 08/09/22 17:52 DCW [id number]) Functional Tests 2 Minute Walk Test Distance FWW Device Used 168' Comments 1.4 ft/sec Five Times Sit to Stand Test Comments Unable to perform one UE-free sit<->stand Timed Up and Go (TUG) Score 21.57 Comments Three-trial average (22.27, 21 .20, 21.24) TUG Impairment Rating 100% Impaired (Score 20) PT-OP-G Mobility & Gait Start: 08/09/22 17:33 Freq: Status: Active Protocol: Document 08/09/22 16:45 DCW (Rec: 08/09/22 17:52 DCW [id number]) OP Gait Assessment Gait Deviations General Gait Pattern Decreased Stride Length, Decreased Feet Clearance,Wide Based Gait Factors Limiting Gait Function Factors Limiting Gait Function Decreased Activity Tolerance, Decreased Strength,Poor Balance Comments Gait Comments Pt ambulates with left foot slap and steppage gait due to left ankle weakness PT-OP-M Strength Start: 08/09/22 17:33 Freq: Status: Active Protocol: Document 08/09/22 16:45 DCW (Rec: 08/09/22 17:52 DCW [id number]) Hip Strength Hip Manual Muscle Testing Right Flexion (L2) 4- Good- Abduction 4 Good Adduction 4 Good External Rotation 4- Good- Internal Rotation 4- Good- Left Flexion (L2) 4 Good Abduction 4 Good Adduction 4 Good External Rotation 4- Good- Internal Rotation 4- Good- Knee Strength Knee Manual Muscle Testing Right Flexion (S2) 3+ Fair+ Extension (L3) 4- Good- Left Flexion (S2) 3+ Fair+ Extension (L3) 4- Good- Ankle/Foot Strength Ankle and Foot Manual Muscle Testing Right Dorsiflexion (L4) 3- Fair- Left Dorsiflexion (L4) 2- Poor- PT-OP-Q Treatments Start: 08/09/22 17:33 Freq: Status: Active Protocol: Document 08/17/22 13:45 DCW (Rec: 08/17/22 14:32 [facility] [id number]) Gym Equipment Cable Column (Body Solid) Hip Adduction Resistance 40# Reps/Time x15 Hip Abduction Resistance 30# Reps/Time x15 Leg Curl Resistance 30# Reps/Time x15 Leg Extension Resistance 25# Reps/Time x15 Shuttle Recovery Plyometric Hopping Details Hopping Resistance 25# Therapeutic Ball Bridging Exercise Details Bridging, feet on ball, /c and /s UE support Ball Size/Color Red - 55 cm Body Position Supine Therapeutic Exercises Sidelying Exercises Hip Abduction Sidelying Exercise Name SLR Abduction Side bilateral Reverse Clamshell Sidelying Exercise Name Reverse Clamshell Side bilateral Resistance Yellow->Green Clamshells Sidelying Exercise Name Clamshells Side bilateral Resistance Yellow->Green Standing Exercises Hip Hike Standing Exercise Name Hip hiking Side bilateral Equipment Used 6 step Manual Therapy Treatment Soft Tissue Mobilization QL Body Location B QL, lumbar paraspinals PT-OP-T Assessment and Plan Start: 08/09/22 17:33 Freq: Status: Active Protocol: Document 08/17/22 13:45 DCW (Rec: 08/17/22 14:32 [facility] [id number]) Physical Therapy Assessment Impairments Impairments Activity Tolerance,Balance, Functional Activities, Functional Mobility,Gait,Pain, Strength Goals Three Impairment Pt unable to stand longer than 10 seconds without support Artifacts Conservator Goal (LTG) Pt to increased double leg stance time without support to >20 seconds to show increased LE strength and improved ankle strategies. LTG Duration 11/07/22 Two Impairment Pt ambulates with a gait speed of 1.4 ft.sec Impairment A gait speed of less than 1.97 ft/sec is indicative of increased likelihood of further functional decline in older adults. Artifacts Conservator Goal (LTG) Pt to increase gait distance to 709' using a FWW during a 6 minute walk test in order to demonstrate decreased risk of functional decline LTG Duration 11/07/22 One Impairment Pt does not have an appropriate home exercise program Short Term Goal (STG) Pt to be independent and compliant with an appropriate HEP STG Duration 10/07/22 Assessment Summary Assessment Pt fatigued pretty quickly with increased activity during today's session, but wanted to keep working through fatigue and did not want any offered rest breaks. Good muscular response with new strengthening activities, but limited due to back pain following recent fall. Physical Therapy Plan Frequency and Duration Frequency of Treatment 2x/Week Plan of Care Start Date 08/09/22 Plan of Care End Date 11/07/22 Therapeutic Interventions Therapeutic Interventions Balance Training,Gait Training ,Home Exercise Program,Joint Mobilizations,Manual Therapy, Neuromuscular Re-education, Patient/Caregiver Education, Self-Care/Home Management,Soft Tissue Mobilization, Therapeutic Activities, Therapeutic Exercises Next Visit Focus/Plan Next Note Type Treatment Note Next Visit Plan LE strengthening, balance training
--- NOTE | 2022-08-22 09:52 | PT.OTN ---
Current Diagnoses Other chronic pain (08/22/22) Dorsalgia, unspecified (08/22/22) Pain in right leg (08/22/22) Pain in left leg (08/22/22) Unsteadiness on feet (08/22/22) Other abnormalities of gait and mobility (08/22/22) Physical Therapy Treatment Note PT-OP-A Visit Information Start: 08/09/22 17:33 Freq: Status: Active Protocol: Document 08/22/22 09:07 SP (Rec: 08/22/22 09:53 SP [id number]) Out-Patient Physical Therapy Visit Information Visit Information Visit Type Treatment Note Visit Start Time 09:07 Visit Stop Time 09:52 Total Visit Minutes 45 Visit Number 3 Number of DROP SHIPMENT CLERK Visits 1 Evaluation Information Evaluation Date 08/09/22 PT-OP-B Current Condition Start: 08/09/22 17:33 Freq: Status: Active Protocol: Document 08/09/22 16:45 DCW (Rec: 08/09/22 17:47 DCW [id number]) Current Condition History of Current Condition Onset Date Multi-year history Current Complaints Poor balance, LE weakness History of Current Condition Pt is an 87 year old male well known to this clinic presenting with LE weakness, gait disturbances, and poor balance. Pt has been seen at this clinic for these complaints before, most recently between December and April 2022. At time of discharge, pt had largely plateaued, and it was decided to perform a new evaluation for his shoulder pain. Pt was seen for two months for his shoulder, but was unable to progress, largely because he shoulders were constantly sore due to overuse of FWW secondary to his ongoing imbalance and gait difficulty, and therefore decided to discharge shoulders and return once again with a new referral for his balance and gait in an attempt to decrease reliance on UEs while walking . Pt feels leg weakness and imbalance largely began following lumbar surgery in Nov, 2020. Pt fatigues quickly , has difficulty with anything which relies on leg strength or tolerance to activity. Unable to use LEs to stand up or simply stand without UE support. Does note he has not had any falls recently. Requests more intense, difficult exercises, since he plateaued with his last round of PT. Treatment Goals Patient/Caregiver Goals Decrease use of FWW PT-OP-C Subjective Start: 08/09/22 17:33 Freq: Status: Active Protocol: Document 08/22/22 09:07 SP (Rec: 08/22/22 09:53 SP [id number]) OP-PT Subjective Patient Comments Patient Comments Pt stated legs still feeling weakness. Pt report little tired but no soreness after last tx. PT-OP-D Balance Start: 08/09/22 17:33 Freq: Status: Active Protocol: Document 08/09/22 16:45 DCW (Rec: 08/09/22 17:52 DCW [id number]) OP-PT Balance Assessment Sitting Balance Static Sitting Balance Ability Normal Dynamic Sitting Balance Ability Normal Standing Balance Static Standing Balance Ability Poor Dynamic Standing Balance Ability Poor Device Used FWW Balance Tests Other Other Balance Tests Performed Standing double leg without UE support: 9.7 max, three other attempts were 1.7, 1.6 , and 7.8 Mazariegos Fall Scale Copyright Permission PT-OP-E Functional Tests Start: 08/09/22 17:33 Freq: Status: Active Protocol: Document 08/09/22 16:45 DCW (Rec: 08/09/22 17:52 DCW [id number]) Functional Tests 2 Minute Walk Test Distance FWW Device Used 168' Comments 1.4 ft/sec Five Times Sit to Stand Test Comments Unable to perform one UE-free sit<->stand Timed Up and Go (TUG) Score 21.57 Comments Three-trial average (22.27, 21 .20, 21.24) TUG Impairment Rating 100% Impaired (Score 20) PT-OP-G Mobility & Gait Start: 08/09/22 17:33 Freq: Status: Active Protocol: Document 08/09/22 16:45 DCW (Rec: 08/09/22 17:52 DCW [id number]) OP Gait Assessment Gait Deviations General Gait Pattern Decreased Stride Length, Decreased Feet Clearance,Wide Based Gait Factors Limiting Gait Function Factors Limiting Gait Function Decreased Activity Tolerance, Decreased Strength,Poor Balance Comments Gait Comments Pt ambulates with left foot slap and steppage gait due to left ankle weakness PT-OP-M Strength Start: 08/09/22 17:33 Freq: Status: Active Protocol: Document 08/09/22 16:45 DCW (Rec: 08/09/22 17:52 DCW [id number]) Hip Strength Hip Manual Muscle Testing Right Flexion (L2) 4- Good- Abduction 4 Good Adduction 4 Good External Rotation 4- Good- Internal Rotation 4- Good- Left Flexion (L2) 4 Good Abduction 4 Good Adduction 4 Good External Rotation 4- Good- Internal Rotation 4- Good- Knee Strength Knee Manual Muscle Testing Right Flexion (S2) 3+ Fair+ Extension (L3) 4- Good- Left Flexion (S2) 3+ Fair+ Extension (L3) 4- Good- Ankle/Foot Strength Ankle and Foot Manual Muscle Testing Right Dorsiflexion (L4) 3- Fair- Left Dorsiflexion (L4) 2- Poor- PT-OP-Q Treatments Start: 08/09/22 17:33 Freq: Status: Active Protocol: Document 08/22/22 09:07 SP (Rec: 08/22/22 09:53 SP [id number]) Gym Equipment Cable Column (Body Solid) Hip Adduction Details cued TA, Neutral PPT Resistance 4 plates Reps/Time x15 Hip Abduction Details cued TA, Neutral PPT Resistance 3 plates Reps/Time x15 Leg Curl Resistance 3 plates Reps/Time x15 Leg Extension Resistance 2.5> 2.25 plates Reps/Time x15 Shuttle Recovery Plyometric Hopping Details Hopping Resistance 25# Reps/Time unable to perform this tx 08/22 Unilateral Squats Resistance 25# ( new band) Shuttle Recovery Platform Stable Reps/Time x15 Bilateral Squats Details Cued R>L knee alignment little closer (adductor fac) Resistance 50# (1 new band) Shuttle Recovery Platform Stable Reps/Time 2x10 Therapeutic Exercises Sitting Exercises sit to stands Sitting Exercise Name Discussed next tx to continue at home Resistance 1UE support chair arm Reps/Minutes 2x5 reps Comments Initially braced back legs on chair, cued scoot fwd, use 1 UE asc/desc & TA self STMs Sitting Exercise Name introducted self massage: quads, HS, calves Side bilateral Reps/Minutes 30 sec. Comments good feedback massage able to do at home benefits Standing Exercises step taps Side bilateral Resistance 4# leg wt Equipment Used 6 step Reps/Minutes x10 alternate each LE Comments cued slow quiet step asc/desc lower step ups Side bilateral Resistance 4# leg wts Equipment Used 6 step Reps/Minutes x10 alternate each LE Comments Therapist support to anterior L knee eccentric flexion con/ ecc PT-OP-T Assessment and Plan Start: 08/09/22 17:33 Freq: Status: Active Protocol: Document 08/22/22 09:07 SP (Rec: 08/22/22 09:53 SP [id number]) Physical Therapy Assessment Goals Three Impairment Pt unable to stand longer than 10 seconds without support Prison Goal (LTG) Pt to increased double leg stance time without support to >20 seconds to show increased LE strength and improved ankle strategies. LTG Duration 11/07/22 Two Impairment Pt ambulates with a gait speed of 1.4 ft.sec Impairment A gait speed of less than 1.97 ft/sec is indicative of increased likelihood of further functional decline in older adults. Prison Goal (LTG) Pt to increase gait distance to 709' using a FWW during a 6 minute walk test in order to demonstrate decreased risk of functional decline LTG Duration 11/07/22 One Impairment Pt does not have an appropriate home exercise program Short Term Goal (STG) Pt to be independent and compliant with an appropriate HEP STG Duration 10/07/22 Assessment Summary Assessment Pt good effort during ther ex but continues to fatigues quickly, requires brief rests betweens sets and longer rests between exercises. Improved STS mechanics forward and UE support glut full stand/TA sit better controlled. Briefly shown rolling pin quads/HS/ calf end tx for self massage leg muscles if wish. But safety be aware recovered walking after activity for stability. Physical Therapy Plan Frequency and Duration Frequency of Treatment 2x/Week Plan of Care Start Date 08/09/22 Plan of Care End Date 11/07/22 Therapeutic Interventions Therapeutic Interventions Balance Training,Gait Training ,Home Exercise Program,Joint Mobilizations,Manual Therapy, Neuromuscular Re-education, Patient/Caregiver Education, Self-Care/Home Management,Soft Tissue Mobilization, Therapeutic Activities, Therapeutic Exercises Next Visit Focus/Plan Next Note Type Treatment Note Next Visit Plan Continue STS and build HEP for home while work on funcitonal and use machine for strengthening in PT. Progress balance activities. POC: LE strengthening, balance training
--- NOTE | 2022-08-24 10:32 | PT.OTN ---
Addendum entered and electronically signed by Safia Gerardo PTA 08/24/22 11:49: Discussed only 1 appt next week, can call am of if available and see if openings and place on waiting list. Original Note: Current Diagnoses Other chronic pain (08/24/22) Dorsalgia, unspecified (08/24/22) Pain in right leg (08/24/22) Pain in left leg (08/24/22) Unsteadiness on feet (08/24/22) Other abnormalities of gait and mobility (08/24/22) Physical Therapy Treatment Note PT-OP-A Visit Information Start: 08/09/22 17:33 Freq: Status: Active Protocol: Document 08/24/22 09:52 SP (Rec: 08/24/22 10:34 SP [id number]) Out-Patient Physical Therapy Visit Information Visit Information Visit Type Treatment Note Visit Start Time 09:52 Visit Stop Time 10:32 Total Visit Minutes 40 Visit Number 4 Number of CORPORATE LEGAL INTERN Visits 2 Evaluation Information Evaluation Date 08/09/22 PT-OP-B Current Condition Start: 08/09/22 17:33 Freq: Status: Active Protocol: Document 08/09/22 16:45 DCW (Rec: 08/09/22 17:47 DCW [id number]) Current Condition History of Current Condition Onset Date Multi-year history Current Complaints Poor balance, LE weakness History of Current Condition Pt is an 87 year old male well known to this clinic presenting with LE weakness, gait disturbances, and poor balance. Pt has been seen at this clinic for these complaints before, most recently between December and April 2022. At time of discharge, pt had largely plateaued, and it was decided to perform a new evaluation for his shoulder pain. Pt was seen for two months for his shoulder, but was unable to progress, largely because he shoulders were constantly sore due to overuse of FWW secondary to his ongoing imbalance and gait difficulty, and therefore decided to discharge shoulders and return once again with a new referral for his balance and gait in an attempt to decrease reliance on UEs while walking . Pt feels leg weakness and imbalance largely began following lumbar surgery in Nov, 2020. Pt fatigues quickly , has difficulty with anything which relies on leg strength or tolerance to activity. Unable to use LEs to stand up or simply stand without UE support. Does note he has not had any falls recently. Requests more intense, difficult exercises, since he plateaued with his last round of PT. Treatment Goals Patient/Caregiver Goals Decrease use of FWW PT-OP-C Subjective Start: 08/09/22 17:33 Freq: Status: Active Protocol: Document 08/24/22 09:52 SP (Rec: 08/24/22 10:34 SP [id number]) OP-PT Subjective Patient Comments Patient Comments Pt reports was sore after last tx for little while but recovered by later day. Has to focus on L forefoot clearance at times when walking. Pt demonstrates more effort LLE advancement and less eccentric PF control upon arrival, Mod heavy UE WB on FWW. PT-OP-D Balance Start: 08/09/22 17:33 Freq: Status: Active Protocol: Document 08/09/22 16:45 DCW (Rec: 08/09/22 17:52 DCW [id number]) OP-PT Balance Assessment Sitting Balance Static Sitting Balance Ability Normal Dynamic Sitting Balance Ability Normal Standing Balance Static Standing Balance Ability Poor Dynamic Standing Balance Ability Poor Device Used FWW Balance Tests Other Other Balance Tests Performed Standing double leg without UE support: 9.7 max, three other attempts were 1.7, 1.6 , and 7.8 Mazariegos Fall Scale Copyright Permission PT-OP-E Functional Tests Start: 08/09/22 17:33 Freq: Status: Active Protocol: Document 08/09/22 16:45 DCW (Rec: 08/09/22 17:52 DCW [id number]) Functional Tests 2 Minute Walk Test Distance FWW Device Used 168' Comments 1.4 ft/sec Five Times Sit to Stand Test Comments Unable to perform one UE-free sit<->stand Timed Up and Go (TUG) Score 21.57 Comments Three-trial average (22.27, 21 .20, 21.24) TUG Impairment Rating 100% Impaired (Score 20) PT-OP-G Mobility & Gait Start: 08/09/22 17:33 Freq: Status: Active Protocol: Document 08/09/22 16:45 DCW (Rec: 08/09/22 17:52 DCW [id number]) OP Gait Assessment Gait Deviations General Gait Pattern Decreased Stride Length, Decreased Feet Clearance,Wide Based Gait Factors Limiting Gait Function Factors Limiting Gait Function Decreased Activity Tolerance, Decreased Strength,Poor Balance Comments Gait Comments Pt ambulates with left foot slap and steppage gait due to left ankle weakness PT-OP-M Strength Start: 08/09/22 17:33 Freq: Status: Active Protocol: Document 08/09/22 16:45 DCW (Rec: 08/09/22 17:52 DCW [id number]) Hip Strength Hip Manual Muscle Testing Right Flexion (L2) 4- Good- Abduction 4 Good Adduction 4 Good External Rotation 4- Good- Internal Rotation 4- Good- Left Flexion (L2) 4 Good Abduction 4 Good Adduction 4 Good External Rotation 4- Good- Internal Rotation 4- Good- Knee Strength Knee Manual Muscle Testing Right Flexion (S2) 3+ Fair+ Extension (L3) 4- Good- Left Flexion (S2) 3+ Fair+ Extension (L3) 4- Good- Ankle/Foot Strength Ankle and Foot Manual Muscle Testing Right Dorsiflexion (L4) 3- Fair- Left Dorsiflexion (L4) 2- Poor- PT-OP-Q Treatments Start: 08/09/22 17:33 Freq: Status: Active Protocol: Document 08/24/22 09:52 SP (Rec: 08/24/22 10:34 SP [id number]) Gym Equipment Shuttle Recovery Unilateral Squats Resistance 25# (new band) Shuttle Recovery Platform Stable Reps/Time x15 Bilateral Squats Details cued x1 knee alignment little closer (adductor fac) Resistance 50# (1 new band) Shuttle Recovery Platform Stable Reps/Time 2x10 Therapeutic Exercises Sitting Exercises ankle strengthening Sitting Exercise Name reviewed past HEP: PF, DF, EV Resistance Tb #1 RLE, AROM LLE Equipment Used ball between knees L EV, DF Reps/Minutes x15 reps Comments cued much range as can. sit to stands Sitting Exercise Name Review HEP Resistance RUE support on FWW LLE off chair arm Reps/Minutes 3 reps (last activity, tired not tolerate more) Comments improved wt shift over LEs, cued glut full stand tall post , safe LLE on FWW Standing Exercises band walk Standing Exercise Name pretty challenging today. Resistance YTB Equipment Used BUE Mod support on rail Reps/Minutes 10 ft x1 laps Comments therapist contact at anterior L knee con/ecc flexion- prevent locking step taps Side bilateral Resistance 4#>2# leg wt (end tx) Equipment Used 6 step ( R HR/ FWW on L)- future //bars needed for posture Reps/Minutes x10 alternate each LE Comments cued slow quiet step asc/desc lower step ups Side bilateral Resistance 4#>2# leg wts (end tx) Equipment Used 6 step ( R HR/ FWW on L)- future //bars needed for posture Reps/Minutes x5 alternate each LE Comments therapist contact at anterior L knee con/ecc flexion PT-OP-T Assessment and Plan Start: 08/09/22 17:33 Freq: Status: Active Protocol: Document 08/24/22 09:52 SP (Rec: 08/24/22 10:34 SP [id number]) Physical Therapy Assessment Goals Three Impairment Pt unable to stand longer than 10 seconds without support Intermediate Goal (LTG) Pt to increased double leg stance time without support to >20 seconds to show increased LE strength and improved ankle strategies. LTG Duration 11/07/22 Two Impairment Pt ambulates with a gait speed of 1.4 ft.sec Impairment A gait speed of less than 1.97 ft/sec is indicative of increased likelihood of further functional decline in older adults. Edge Trimming Machine Operator Goal (LTG) Pt to increase gait distance to 709' using a FWW during a 6 minute walk test in order to demonstrate decreased risk of functional decline LTG Duration 11/07/22 One Impairment Pt does not have an appropriate home exercise program Short Term Goal (STG) Pt to be independent and compliant with an appropriate HEP STG Duration 10/07/22 Assessment Summary Assessment Pt more fatigued today required sit rest between standing sets activities. He required decreased ankle wts step taps/step ups downs toward end tx. Pt improved AROM LLE DF and EV with target to move to while holding ball between knees for adductor fac hip alignment, unable to perform L ankle against resistance today. Improved ability soft knee flexion against therapist hand L knee to allow RLE lateral side step . Time spent STS with cues for R UE on FWW downward pressure , hip hinge to full stand and slow descend use 1 UE support slow controlled descent, improved with reps. Noted improved DF foot clearance and PF descent leaving. Discussed only give UE support LEs need during gait safety strength/ stability, to allow decrease stress on neck/ upper back/UEs . Physical Therapy Plan Frequency and Duration Frequency of Treatment 2x/Week Plan of Care Start Date 08/09/22 Plan of Care End Date 11/07/22 Therapeutic Interventions Therapeutic Interventions Balance Training,Gait Training ,Home Exercise Program,Joint Mobilizations,Manual Therapy, Neuromuscular Re-education, Patient/Caregiver Education, Self-Care/Home Management,Soft Tissue Mobilization, Therapeutic Activities, Therapeutic Exercises Next Visit Focus/Plan Next Note Type Treatment Note Next Visit Plan Continue review supine HEP, STS and build HEP for home while work on functional and use machine for strengthening in PT. Progress balance activities. POC: LE strengthening, balance training
--- NOTE | 2022-08-30 13:46 | PT.OTN ---
Current Diagnoses Other chronic pain (08/30/22) Dorsalgia, unspecified (08/30/22) Pain in right leg (08/30/22) Pain in left leg (08/30/22) Unsteadiness on feet (08/30/22) Other abnormalities of gait and mobility (08/30/22) Physical Therapy Treatment Note PT-OP-A Visit Information Start: 08/09/22 17:33 Freq: Status: Active Protocol: Document 08/30/22 13:08 SP (Rec: 08/30/22 13:51 SP [id number]) Out-Patient Physical Therapy Visit Information Visit Information Visit Type Treatment Note Visit Start Time 13:08 Visit Stop Time 13:46 Total Visit Minutes 38 Visit Number 5 Number of DANCE ENTERTAINER Visits 3 Evaluation Information Evaluation Date 08/09/22 PT-OP-B Current Condition Start: 08/09/22 17:33 Freq: Status: Active Protocol: Document 08/09/22 16:45 DCW (Rec: 08/09/22 17:47 DCW [id number]) Current Condition History of Current Condition Onset Date Multi-year history Current Complaints Poor balance, LE weakness History of Current Condition Pt is an 87 year old male well known to this clinic presenting with LE weakness, gait disturbances, and poor balance. Pt has been seen at this clinic for these complaints before, most recently between December and April 2022. At time of discharge, pt had largely plateaued, and it was decided to perform a new evaluation for his shoulder pain. Pt was seen for two months for his shoulder, but was unable to progress, largely because he shoulders were constantly sore due to overuse of FWW secondary to his ongoing imbalance and gait difficulty, and therefore decided to discharge shoulders and return once again with a new referral for his balance and gait in an attempt to decrease reliance on UEs while walking . Pt feels leg weakness and imbalance largely began following lumbar surgery in Nov, 2020. Pt fatigues quickly , has difficulty with anything which relies on leg strength or tolerance to activity. Unable to use LEs to stand up or simply stand without UE support. Does note he has not had any falls recently. Requests more intense, difficult exercises, since he plateaued with his last round of PT. Treatment Goals Patient/Caregiver Goals Decrease use of FWW PT-OP-C Subjective Start: 08/09/22 17:33 Freq: Status: Active Protocol: Document 08/30/22 13:08 SP (Rec: 08/30/22 13:51 SP [id number]) OP-PT Subjective Patient Comments Patient Comments Pt reports doesn't see significant improvement in strength, want to know what to do at home and will bring in my HOs to condense what to perform. He reports was told when see's PT again will review/ condense HEP bring HOs to provide comments and discuss what to peform for overall effective/benefits. PT-OP-D Balance Start: 08/09/22 17:33 Freq: Status: Active Protocol: Document 08/09/22 16:45 DCW (Rec: 08/09/22 17:52 DCW [id number]) OP-PT Balance Assessment Sitting Balance Static Sitting Balance Ability Normal Dynamic Sitting Balance Ability Normal Standing Balance Static Standing Balance Ability Poor Dynamic Standing Balance Ability Poor Device Used FWW Balance Tests Other Other Balance Tests Performed Standing double leg without UE support: 9.7 max, three other attempts were 1.7, 1.6 , and 7.8 Mazariegos Fall Scale Copyright Permission PT-OP-E Functional Tests Start: 08/09/22 17:33 Freq: Status: Active Protocol: Document 08/09/22 16:45 DCW (Rec: 08/09/22 17:52 DCW [id number]) Functional Tests 2 Minute Walk Test Distance FWW Device Used 168' Comments 1.4 ft/sec Five Times Sit to Stand Test Comments Unable to perform one UE-free sit<->stand Timed Up and Go (TUG) Score 21.57 Comments Three-trial average (22.27, 21 .20, 21.24) TUG Impairment Rating 100% Impaired (Score 20) PT-OP-G Mobility & Gait Start: 08/09/22 17:33 Freq: Status: Active Protocol: Document 08/09/22 16:45 DCW (Rec: 08/09/22 17:52 DCW [id number]) OP Gait Assessment Gait Deviations General Gait Pattern Decreased Stride Length, Decreased Feet Clearance,Wide Based Gait Factors Limiting Gait Function Factors Limiting Gait Function Decreased Activity Tolerance, Decreased Strength,Poor Balance Comments Gait Comments Pt ambulates with left foot slap and steppage gait due to left ankle weakness PT-OP-M Strength Start: 08/09/22 17:33 Freq: Status: Active Protocol: Document 08/09/22 16:45 DCW (Rec: 08/09/22 17:52 DCW [id number]) Hip Strength Hip Manual Muscle Testing Right Flexion (L2) 4- Good- Abduction 4 Good Adduction 4 Good External Rotation 4- Good- Internal Rotation 4- Good- Left Flexion (L2) 4 Good Abduction 4 Good Adduction 4 Good External Rotation 4- Good- Internal Rotation 4- Good- Knee Strength Knee Manual Muscle Testing Right Flexion (S2) 3+ Fair+ Extension (L3) 4- Good- Left Flexion (S2) 3+ Fair+ Extension (L3) 4- Good- Ankle/Foot Strength Ankle and Foot Manual Muscle Testing Right Dorsiflexion (L4) 3- Fair- Left Dorsiflexion (L4) 2- Poor- PT-OP-Q Treatments Start: 08/09/22 17:33 Freq: Status: Active Protocol: Document 08/30/22 13:08 SP (Rec: 08/30/22 13:51 SP [id number]) Gym Equipment Shuttle Recovery Unilateral Squats Resistance 25# (new band) Shuttle Recovery Platform Stable Reps/Time x15 Bilateral Squats Details cued x1 knee alignment little closer (adductor fac) Resistance 50# (1 new band) Shuttle Recovery Platform Stable Reps/Time 2x10 Therapeutic Exercises Supine Exercises TA knee fall out Supine Exercise Name added to HEP Side bilateral Reps/Minutes 2x5 reps Comments cued TA/ PPT, slow controlled hip abd josey range, painfree TA heel slide Supine Exercise Name added to HEP- alternating each LE Side bilateral Reps/Minutes 2x5 reps Comments cued TA/ PPT, slow light ft contact slide- painfree Sidelying Exercises Hip Abduction Sidelying Exercise Name SLR Abduction- in PT only Side bilateral Reps/Minutes x2 L- hold for now to challenging Comments Max cues alignment, therapist support Reverse Clamshell Sidelying Exercise Name Reverse Clamshell Side bilateral Resistance Yellow->Green Clamshells Sidelying Exercise Name Clamshells- HEP review Side bilateral Resistance AROM (HEP), GTB past pre Reps/Minutes x10 Sitting Exercises sit to stands Sitting Exercise Name Review HEP Resistance RUE support on FWW LLE off chair arm Reps/Minutes 1 reps cued use hands end tx Comments improved wt shift over LEs, cued glut full stand tall post , safe LLE on FWW PT-OP-T Assessment and Plan Start: 08/09/22 17:33 Freq: Status: Active Protocol: Document 08/30/22 13:08 SP (Rec: 08/30/22 13:51 SP [id number]) Physical Therapy Assessment Goals Three Impairment Pt unable to stand longer than 10 seconds without support Web Worker Goal (LTG) Pt to increased double leg stance time without support to >20 seconds to show increased LE strength and improved ankle strategies. LTG Duration 11/07/22 Two Impairment Pt ambulates with a gait speed of 1.4 ft.sec Impairment A gait speed of less than 1.97 ft/sec is indicative of increased likelihood of further functional decline in older adults. Web Worker Goal (LTG) Pt to increase gait distance to 709' using a FWW during a 6 minute walk test in order to demonstrate decreased risk of functional decline LTG Duration 11/07/22 One Impairment Pt does not have an appropriate home exercise program Short Term Goal (STG) Pt to be independent and compliant with an appropriate HEP 08/24/22: added ankle 3 way TB for con/eccentric controll during gait. 08/30/22: Reviewed/added: supine TA heelslide, TA SKFO, side clam/reverse clam, STS STG Duration 10/07/22 progressing 08/30/22 Assessment Summary Assessment Pt better understanding of supine and side HEP with importance of TA engagement and ability to slowly move LEs for added core strengthening benefit. Provided HOs today for recall/review. Will bring all his HOs of different tx been here to condense and provide most efficient overall strengthening HEP. Physical Therapy Plan Frequency and Duration Frequency of Treatment 2x/Week Plan of Care Start Date 08/09/22 Plan of Care End Date 11/07/22 Therapeutic Interventions Therapeutic Interventions Balance Training,Gait Training ,Home Exercise Program,Joint Mobilizations,Manual Therapy, Neuromuscular Re-education, Patient/Caregiver Education, Self-Care/Home Management,Soft Tissue Mobilization, Therapeutic Activities, Therapeutic Exercises Next Visit Focus/Plan Next Note Type Treatment Note Next Visit Plan Review HEP with all HOs condense for home . Will work on functional and use machine for strengthening in PT. Progress balance activities. POC: LE strengthening, balance training
--- NOTE | 2022-09-06 10:32 | PT.OTN ---
Current Diagnoses Other chronic pain (09/06/22) Dorsalgia, unspecified (09/06/22) Pain in right leg (09/06/22) Pain in left leg (09/06/22) Unsteadiness on feet (09/06/22) Other abnormalities of gait and mobility (09/06/22) Physical Therapy Treatment Note PT-OP-A Visit Information Start: 08/09/22 17:33 Freq: Status: Active Protocol: Document 09/06/22 09:52 SP (Rec: 09/06/22 11:22 SP [id number]) Out-Patient Physical Therapy Visit Information Visit Information Visit Type Treatment Note Visit Note 5th visit with PT next tx Visit Start Time 09:52 Visit Stop Time 10:32 Total Visit Minutes 40 Visit Number 6 Number of TMH TEACHER Visits 4 Evaluation Information Evaluation Date 08/09/22 PT-OP-B Current Condition Start: 08/09/22 17:33 Freq: Status: Active Protocol: Document 08/09/22 16:45 DCW (Rec: 08/09/22 17:47 DCW [id number]) Current Condition History of Current Condition Onset Date Multi-year history Current Complaints Poor balance, LE weakness History of Current Condition Pt is an 87 year old male well known to this clinic presenting with LE weakness, gait disturbances, and poor balance. Pt has been seen at this clinic for these complaints before, most recently between December and April 2022. At time of discharge, pt had largely plateaued, and it was decided to perform a new evaluation for his shoulder pain. Pt was seen for two months for his shoulder, but was unable to progress, largely because he shoulders were constantly sore due to overuse of FWW secondary to his ongoing imbalance and gait difficulty, and therefore decided to discharge shoulders and return once again with a new referral for his balance and gait in an attempt to decrease reliance on UEs while walking . Pt feels leg weakness and imbalance largely began following lumbar surgery in Nov, 2020. Pt fatigues quickly , has difficulty with anything which relies on leg strength or tolerance to activity. Unable to use LEs to stand up or simply stand without UE support. Does note he has not had any falls recently. Requests more intense, difficult exercises, since he plateaued with his last round of PT. Treatment Goals Patient/Caregiver Goals Decrease use of FWW PT-OP-C Subjective Start: 08/09/22 17:33 Freq: Status: Active Protocol: Document 09/06/22 09:52 SP (Rec: 09/06/22 11:22 SP [id number]) OP-PT Subjective Patient Comments Patient Comments Pt reports working on ankle strengthening and calf raises but not seeing improvements. Pt reports will be going out of town for week or so. PT-OP-D Balance Start: 08/09/22 17:33 Freq: Status: Active Protocol: Document 08/09/22 16:45 DCW (Rec: 08/09/22 17:52 DCW [id number]) OP-PT Balance Assessment Sitting Balance Static Sitting Balance Ability Normal Dynamic Sitting Balance Ability Normal Standing Balance Static Standing Balance Ability Poor Dynamic Standing Balance Ability Poor Device Used FWW Balance Tests Other Other Balance Tests Performed Standing double leg without UE support: 9.7 max, three other attempts were 1.7, 1.6 , and 7.8 Mazariegos Fall Scale Copyright Permission PT-OP-E Functional Tests Start: 08/09/22 17:33 Freq: Status: Active Protocol: Document 08/09/22 16:45 DCW (Rec: 08/09/22 17:52 DCW [id number]) Functional Tests 2 Minute Walk Test Distance FWW Device Used 168' Comments 1.4 ft/sec Five Times Sit to Stand Test Comments Unable to perform one UE-free sit<->stand Timed Up and Go (TUG) Score 21.57 Comments Three-trial average (22.27, 21 .20, 21.24) TUG Impairment Rating 100% Impaired (Score 20) PT-OP-G Mobility & Gait Start: 08/09/22 17:33 Freq: Status: Active Protocol: Document 08/09/22 16:45 DCW (Rec: 08/09/22 17:52 DCW [id number]) OP Gait Assessment Gait Deviations General Gait Pattern Decreased Stride Length, Decreased Feet Clearance,Wide Based Gait Factors Limiting Gait Function Factors Limiting Gait Function Decreased Activity Tolerance, Decreased Strength,Poor Balance Comments Gait Comments Pt ambulates with left foot slap and steppage gait due to left ankle weakness PT-OP-M Strength Start: 08/09/22 17:33 Freq: Status: Active Protocol: Document 08/09/22 16:45 DCW (Rec: 08/09/22 17:52 DCW [id number]) Hip Strength Hip Manual Muscle Testing Right Flexion (L2) 4- Good- Abduction 4 Good Adduction 4 Good External Rotation 4- Good- Internal Rotation 4- Good- Left Flexion (L2) 4 Good Abduction 4 Good Adduction 4 Good External Rotation 4- Good- Internal Rotation 4- Good- Knee Strength Knee Manual Muscle Testing Right Flexion (S2) 3+ Fair+ Extension (L3) 4- Good- Left Flexion (S2) 3+ Fair+ Extension (L3) 4- Good- Ankle/Foot Strength Ankle and Foot Manual Muscle Testing Right Dorsiflexion (L4) 3- Fair- Left Dorsiflexion (L4) 2- Poor- PT-OP-Q Treatments Start: 08/09/22 17:33 Freq: Status: Active Protocol: Document 09/06/22 09:52 SP (Rec: 09/06/22 11:22 SP [id number]) Gym Equipment Shuttle Recovery Unilateral Squats Resistance 25# (new band) Shuttle Recovery Platform Stable Reps/Time 2x15 Bilateral Squats Details cued x1 knee alignment little closer (adductor fac) Resistance 50# (1 new band) Shuttle Recovery Platform Stable Reps/Time 2x15 Therapeutic Exercises Sitting Exercises HS curls Sitting Exercise Name added to HEP (declined HO) Side bilateral Resistance Tb #1 Equipment Used therapist anchored but discussed how anchor door home. Reps/Minutes 2x10 Comments cued scoot all way back chair, good effort work ankle strengthening Sitting Exercise Name verbal reviewed to continue HEP: PF, DF, EV Resistance Tb #1 RLE, AROM LLE Equipment Used ball between knees L EV, DF Reps/Minutes x15 reps Comments cued much range as can. Standing Exercises calf raise Standing Exercise Name Trial, unable to perform, weakness in calf Side bilateral Equipment Used rail Reps/Minutes x5 reps Comments Discontinue for now- focuse more eccentric TB into DF band walk Standing Exercise Name good tiring challenge (inPT) Resistance R TB Equipment Used BUE Mod support on rail Reps/Minutes 12 ft x1 laps Comments therapist tactile feedback anterior L knee con/ecc flexion- prevent locking Gait Training Gait Activity 2MWT Device Used FWW Level of Assistance S Surface carpet/tile Distance/Duration 161 ft Treatment Focus taller posturing, foot clearance, heel toe Comments improved DF during swing phase and heel strike softer w/ cues and improved eccentric PF Heel toe but still weakness. Neuro Re-Education Treatment Balance Activities static balance Equipment near rail PRN Comments EO 2 sec, 10 sec before loses balance retro. Self-Care/Home Management Treatment Education Patient Education Home Exercise Program Other Education Time spent how anchor TB for self carryover resisted HS curl at home. States is dong 4 way ankle at home. PT-OP-T Assessment and Plan Start: 08/09/22 17:33 Freq: Status: Active Protocol: Document 09/06/22 09:52 SP (Rec: 09/06/22 11:22 SP [id number]) Physical Therapy Assessment Goals Three Impairment Pt unable to stand longer than 10 seconds without support Alf Goal (LTG) Pt to increased double leg stance time without support to >20 seconds to show increased LE strength and improved ankle strategies. 09/06/22: 2 sec, 10 sec LTG Duration 11/07/22 progressin09/06/22 Two Impairment Pt ambulates with a gait speed of 1.4 ft.sec Impairment A gait speed of less than 1.97 ft/sec is indicative of increased likelihood of further functional decline in older adults. Alf Goal (LTG) Pt to increase gait distance to 709' using a FWW during a 6 minute walk test in order to demonstrate decreased risk of functional decline 09/06/22: 2MWT 161 ft LTG Duration 11/07/22 updated 09/06/22 One Impairment Pt does not have an appropriate home exercise program Short Term Goal (STG) Pt to be independent and compliant with an appropriate HEP 08/24/22: added ankle 3 way TB for con/eccentric controll during gait. 08/30/22: Reviewed/added: supine TA heelslide, TA SKFO, side clam/reverse clam, STS 09/06/22: added seated resisted HS curl STG Duration 10/07/22 progressing 09/06/22 Assessment Summary Assessment Pt better understanding of how apply resisted HS curl at home for carryover strengthening at home set up/ performance. Pt able to maintain soft knee on L with tactile cues anterior L knee midstance while RLE repositioning resisted band walk. Physical Therapy Plan Frequency and Duration Frequency of Treatment 2x/Week Plan of Care Start Date 08/09/22 Plan of Care End Date 11/07/22 Therapeutic Interventions Therapeutic Interventions Balance Training,Gait Training ,Home Exercise Program,Joint Mobilizations,Manual Therapy, Neuromuscular Re-education, Patient/Caregiver Education, Self-Care/Home Management,Soft Tissue Mobilization, Therapeutic Activities, Therapeutic Exercises Next Visit Focus/Plan Next Note Type Treatment Note Next Visit Plan Condense HEP, requested bring HOs (hasn't thus far). Will work on functional and use machine for strengthening in PT. Progress balance activities. POC: LE strengthening, balance training
--- NOTE | 2022-09-27 14:30 | PT.OTN ---
Current Diagnoses Other chronic pain (09/27/22) Dorsalgia, unspecified (09/27/22) Pain in right leg (09/27/22) Pain in left leg (09/27/22) Unsteadiness on feet (09/27/22) Other abnormalities of gait and mobility (09/27/22) Physical Therapy Treatment Note PT-OP-A Visit Information Start: 08/09/22 17:33 Freq: Status: Active Protocol: Document 09/27/22 13:45 DCW (Rec: 09/27/22 14:30 DCW [id number]) Out-Patient Physical Therapy Visit Information Visit Information Visit Type Treatment Note Visit Start Time 13:45 Visit Stop Time 14:30 Total Visit Minutes 45 Visit Number 7 Number of NURSE PRIVATE DUTY Visits 0 Evaluation Information Evaluation Date 08/09/22 PT-OP-B Current Condition Start: 08/09/22 17:33 Freq: Status: Active Protocol: Document 08/09/22 16:45 DCW (Rec: 08/09/22 17:47 DCW [id number]) Current Condition History of Current Condition Onset Date Multi-year history Current Complaints Poor balance, LE weakness History of Current Condition Pt is an 87 year old male well known to this clinic presenting with LE weakness, gait disturbances, and poor balance. Pt has been seen at this clinic for these complaints before, most recently between December and April 2022. At time of discharge, pt had largely plateaued, and it was decided to perform a new evaluation for his shoulder pain. Pt was seen for two months for his shoulder, but was unable to progress, largely because he shoulders were constantly sore due to overuse of FWW secondary to his ongoing imbalance and gait difficulty, and therefore decided to discharge shoulders and return once again with a new referral for his balance and gait in an attempt to decrease reliance on UEs while walking . Pt feels leg weakness and imbalance largely began following lumbar surgery in Nov, 2020. Pt fatigues quickly , has difficulty with anything which relies on leg strength or tolerance to activity. Unable to use LEs to stand up or simply stand without UE support. Does note he has not had any falls recently. Requests more intense, difficult exercises, since he plateaued with his last round of PT. Treatment Goals Patient/Caregiver Goals Decrease use of FWW PT-OP-C Subjective Start: 08/09/22 17:33 Freq: Status: Active Protocol: Document 09/27/22 13:45 DCW (Rec: 09/27/22 14:30 DCW [id number]) OP-PT Subjective Patient Comments Patient Comments My balance hasn't really improved, I feel like my leg and ankle strength really hasn 't gotten any better. PT-OP-D Balance Start: 08/09/22 17:33 Freq: Status: Active Protocol: Document 08/09/22 16:45 DCW (Rec: 08/09/22 17:52 DCW [id number]) OP-PT Balance Assessment Sitting Balance Static Sitting Balance Ability Normal Dynamic Sitting Balance Ability Normal Standing Balance Static Standing Balance Ability Poor Dynamic Standing Balance Ability Poor Device Used FWW Balance Tests Other Other Balance Tests Performed Standing double leg without UE support: 9.7 max, three other attempts were 1.7, 1.6 , and 7.8 Mazariegos Fall Scale Copyright Permission PT-OP-E Functional Tests Start: 08/09/22 17:33 Freq: Status: Active Protocol: Document 08/09/22 16:45 DCW (Rec: 08/09/22 17:52 DCW [id number]) Functional Tests 2 Minute Walk Test Distance FWW Device Used 168' Comments 1.4 ft/sec Five Times Sit to Stand Test Comments Unable to perform one UE-free sit<->stand Timed Up and Go (TUG) Score 21.57 Comments Three-trial average (22.27, 21 .20, 21.24) TUG Impairment Rating 100% Impaired (Score 20) PT-OP-G Mobility & Gait Start: 08/09/22 17:33 Freq: Status: Active Protocol: Document 08/09/22 16:45 DCW (Rec: 08/09/22 17:52 DCW [id number]) OP Gait Assessment Gait Deviations General Gait Pattern Decreased Stride Length, Decreased Feet Clearance,Wide Based Gait Factors Limiting Gait Function Factors Limiting Gait Function Decreased Activity Tolerance, Decreased Strength,Poor Balance Comments Gait Comments Pt ambulates with left foot slap and steppage gait due to left ankle weakness PT-OP-M Strength Start: 08/09/22 17:33 Freq: Status: Active Protocol: Document 08/09/22 16:45 DCW (Rec: 08/09/22 17:52 DCW [id number]) Hip Strength Hip Manual Muscle Testing Right Flexion (L2) 4- Good- Abduction 4 Good Adduction 4 Good External Rotation 4- Good- Internal Rotation 4- Good- Left Flexion (L2) 4 Good Abduction 4 Good Adduction 4 Good External Rotation 4- Good- Internal Rotation 4- Good- Knee Strength Knee Manual Muscle Testing Right Flexion (S2) 3+ Fair+ Extension (L3) 4- Good- Left Flexion (S2) 3+ Fair+ Extension (L3) 4- Good- Ankle/Foot Strength Ankle and Foot Manual Muscle Testing Right Dorsiflexion (L4) 3- Fair- Left Dorsiflexion (L4) 2- Poor- PT-OP-Q Treatments Start: 08/09/22 17:33 Freq: Status: Active Protocol: Document 09/27/22 13:45 DCW (Rec: 09/27/22 14:30 DCW [id number]) Gym Equipment Shuttle Recovery Plyometric Hopping Details Hopping Resistance 25# Unilateral Squats Resistance 25# (new band) Shuttle Recovery Platform Stable Reps/Time 2x15 Bilateral Squats Details cued x1 knee alignment little closer (adductor fac) Resistance 50# (1 new band) Shuttle Recovery Platform Stable Reps/Time 2x15 Therapeutic Exercises Standing Exercises band walk Standing Exercise Name good tiring challenge (inPT) Resistance Yellow Equipment Used BUE Mod support on rail Reps/Minutes 10 ft x2 laps Comments side-stepping Neuro Re-Education Treatment Balance Activities Tandem stance Details Tandem Stance Equipment // bars PT-OP-T Assessment and Plan Start: 08/09/22 17:33 Freq: Status: Active Protocol: Document 09/27/22 13:45 DCW (Rec: 09/27/22 14:30 DCW [id number]) Physical Therapy Assessment Goals Three Impairment Pt unable to stand longer than 10 seconds without support Furniture Stainer Goal (LTG) Pt to increased double leg stance time without support to >20 seconds to show increased LE strength and improved ankle strategies. 09/06/22: 2 sec, 10 sec LTG Duration 11/07/22 progressin09/06/22 Two Impairment Pt ambulates with a gait speed of 1.4 ft.sec Impairment A gait speed of less than 1.97 ft/sec is indicative of increased likelihood of further functional decline in older adults. Correction Goal (LTG) Pt to increase gait distance to 709' using a FWW during a 6 minute walk test in order to demonstrate decreased risk of functional decline 09/06/22: 2MWT 161 ft LTG Duration 11/07/22 updated 09/06/22 One Impairment Pt does not have an appropriate home exercise program Short Term Goal (STG) Pt to be independent and compliant with an appropriate HEP 08/24/22: added ankle 3 way TB for con/eccentric controll during gait. 08/30/22: Reviewed/added: supine TA heelslide, TA SKFO, side clam/reverse clam, STS 09/06/22: added seated resisted HS curl STG Duration 10/07/22 progressing 09/06/22 Assessment Summary Assessment Spent time condensing pt's HEP into a more manageable load, continued to work on LE strength and balance. Pt unsure about current level of improvement, but wants to continue to work for another month to make sure he gets as much improvement as he can. Physical Therapy Plan Frequency and Duration Frequency of Treatment 2x/Week Plan of Care Start Date 08/09/22 Plan of Care End Date 11/07/22 Therapeutic Interventions Therapeutic Interventions Balance Training,Gait Training ,Home Exercise Program,Joint Mobilizations,Manual Therapy, Neuromuscular Re-education, Patient/Caregiver Education, Self-Care/Home Management,Soft Tissue Mobilization, Therapeutic Activities, Therapeutic Exercises Next Visit Focus/Plan Next Note Type Treatment Note Next Visit Plan Condense HEP, requested bring HOs (hasn't thus far). Will work on functional and use machine for strengthening in PT. Progress balance activities. POC: LE strengthening, balance training
--- NOTE | 2022-09-29 12:45 | PT.OTN ---
Current Diagnoses Other chronic pain (09/29/22) Dorsalgia, unspecified (09/29/22) Pain in right leg (09/29/22) Pain in left leg (09/29/22) Unsteadiness on feet (09/29/22) Other abnormalities of gait and mobility (09/29/22) Physical Therapy Treatment Note PT-OP-A Visit Information Start: 08/09/22 17:33 Freq: Status: Active Protocol: Document 09/29/22 12:03 DCW (Rec: 09/29/22 12:45 DCW [id number]) Out-Patient Physical Therapy Visit Information Visit Information Visit Type Treatment Note Visit Start Time 12:03 Visit Stop Time 12:45 Total Visit Minutes 42 Visit Number 8 Number of CONSTRUCTION SALES MANAGER Visits 0 Evaluation Information Evaluation Date 08/09/22 PT-OP-B Current Condition Start: 08/09/22 17:33 Freq: Status: Active Protocol: Document 08/09/22 16:45 DCW (Rec: 08/09/22 17:47 DCW [id number]) Current Condition History of Current Condition Onset Date Multi-year history Current Complaints Poor balance, LE weakness History of Current Condition Pt is an 87 year old male well known to this clinic presenting with LE weakness, gait disturbances, and poor balance. Pt has been seen at this clinic for these complaints before, most recently between December and April 2022. At time of discharge, pt had largely plateaued, and it was decided to perform a new evaluation for his shoulder pain. Pt was seen for two months for his shoulder, but was unable to progress, largely because he shoulders were constantly sore due to overuse of FWW secondary to his ongoing imbalance and gait difficulty, and therefore decided to discharge shoulders and return once again with a new referral for his balance and gait in an attempt to decrease reliance on UEs while walking . Pt feels leg weakness and imbalance largely began following lumbar surgery in Nov, 2020. Pt fatigues quickly , has difficulty with anything which relies on leg strength or tolerance to activity. Unable to use LEs to stand up or simply stand without UE support. Does note he has not had any falls recently. Requests more intense, difficult exercises, since he plateaued with his last round of PT. Treatment Goals Patient/Caregiver Goals Decrease use of FWW PT-OP-C Subjective Start: 08/09/22 17:33 Freq: Status: Active Protocol: Document 09/29/22 12:03 DCW (Rec: 09/29/22 12:45 DCW [id number]) OP-PT Subjective Patient Comments Patient Comments I'm doing better than I was Monday. PT-OP-D Balance Start: 08/09/22 17:33 Freq: Status: Active Protocol: Document 08/09/22 16:45 DCW (Rec: 08/09/22 17:52 DCW [id number]) OP-PT Balance Assessment Sitting Balance Static Sitting Balance Ability Normal Dynamic Sitting Balance Ability Normal Standing Balance Static Standing Balance Ability Poor Dynamic Standing Balance Ability Poor Device Used FWW Balance Tests Other Other Balance Tests Performed Standing double leg without UE support: 9.7 max, three other attempts were 1.7, 1.6 , and 7.8 Mazariegos Fall Scale Copyright Permission PT-OP-E Functional Tests Start: 08/09/22 17:33 Freq: Status: Active Protocol: Document 08/09/22 16:45 DCW (Rec: 08/09/22 17:52 DCW [id number]) Functional Tests 2 Minute Walk Test Distance FWW Device Used 168' Comments 1.4 ft/sec Five Times Sit to Stand Test Comments Unable to perform one UE-free sit<->stand Timed Up and Go (TUG) Score 21.57 Comments Three-trial average (22.27, 21 .20, 21.24) TUG Impairment Rating 100% Impaired (Score 20) PT-OP-G Mobility & Gait Start: 08/09/22 17:33 Freq: Status: Active Protocol: Document 08/09/22 16:45 DCW (Rec: 08/09/22 17:52 DCW [id number]) OP Gait Assessment Gait Deviations General Gait Pattern Decreased Stride Length, Decreased Feet Clearance,Wide Based Gait Factors Limiting Gait Function Factors Limiting Gait Function Decreased Activity Tolerance, Decreased Strength,Poor Balance Comments Gait Comments Pt ambulates with left foot slap and steppage gait due to left ankle weakness PT-OP-M Strength Start: 08/09/22 17:33 Freq: Status: Active Protocol: Document 08/09/22 16:45 DCW (Rec: 08/09/22 17:52 DCW [id number]) Hip Strength Hip Manual Muscle Testing Right Flexion (L2) 4- Good- Abduction 4 Good Adduction 4 Good External Rotation 4- Good- Internal Rotation 4- Good- Left Flexion (L2) 4 Good Abduction 4 Good Adduction 4 Good External Rotation 4- Good- Internal Rotation 4- Good- Knee Strength Knee Manual Muscle Testing Right Flexion (S2) 3+ Fair+ Extension (L3) 4- Good- Left Flexion (S2) 3+ Fair+ Extension (L3) 4- Good- Ankle/Foot Strength Ankle and Foot Manual Muscle Testing Right Dorsiflexion (L4) 3- Fair- Left Dorsiflexion (L4) 2- Poor- PT-OP-Q Treatments Start: 08/09/22 17:33 Freq: Status: Active Protocol: Document 09/29/22 12:03 DCW (Rec: 09/29/22 12:45 DCW [id number]) Gym Equipment Cable Column (Body Solid) Hip Adduction Resistance 35# Reps/Time x15 Hip Abduction Resistance 25# Reps/Time x15 Leg Curl Resistance 30# Reps/Time x15 Leg Extension Resistance 2.5> 2.25 plates Reps/Time x15 Shuttle Recovery Plyometric Hopping Details Hopping Resistance 25# Unilateral Squats Resistance 25# Shuttle Recovery Platform Stable Reps/Time x15 Bilateral Squats Details cued x1 knee alignment little closer (adductor fac) Resistance 50# (1 new band) Shuttle Recovery Platform Stable Reps/Time x15 Therapeutic Exercises Standing Exercises Hamstring Curls Standing Exercise Name HS curls Side bilateral Resistance 4# band walk Resistance Yellow Equipment Used BUE Mod support on rail Reps/Minutes 10 ft x2 laps Comments side-stepping Neuro Re-Education Treatment Balance Activities Tandem stance Details Tandem Stance Equipment // bars static balance Surface Black foam pad Equipment // bars PT-OP-T Assessment and Plan Start: 08/09/22 17:33 Freq: Status: Active Protocol: Document 09/29/22 12:03 DCW (Rec: 09/29/22 12:45 DCW [id number]) Physical Therapy Assessment Impairments Impairments Activity Tolerance,Balance, Functional Activities, Functional Mobility,Gait,Pain, Strength Goals Three Impairment Pt unable to stand longer than 10 seconds without support National Sales Trainer Goal (LTG) Pt to increased double leg stance time without support to >20 seconds to show increased LE strength and improved ankle strategies. 09/06/22: 2 sec, 10 sec LTG Duration 11/07/22 progressin09/06/22 Two Impairment Pt ambulates with a gait speed of 1.4 ft.sec Impairment A gait speed of less than 1.97 ft/sec is indicative of increased likelihood of further functional decline in older adults. Fci Goal (LTG) Pt to increase gait distance to 709' using a FWW during a 6 minute walk test in order to demonstrate decreased risk of functional decline 09/06/22: 2MWT 161 ft LTG Duration 11/07/22 updated 09/06/22 One Impairment Pt does not have an appropriate home exercise program Short Term Goal (STG) Pt to be independent and compliant with an appropriate HEP 08/24/22: added ankle 3 way TB for con/eccentric controll during gait. 08/30/22: Reviewed/added: supine TA heelslide, TA SKFO, side clam/reverse clam, STS 09/06/22: added seated resisted HS curl STG Duration 10/07/22 progressing 09/06/22 Assessment Summary Assessment Pt feeling very fatigued by end of session, noted it felt like a good workout. Continues to admit he feels his improvement has been quite limited, want to continue to work on more difficult exercises as he can tolerate. Physical Therapy Plan Frequency and Duration Frequency of Treatment 2x/Week Plan of Care Start Date 08/09/22 Plan of Care End Date 11/07/22 Therapeutic Interventions Therapeutic Interventions Balance Training,Gait Training ,Home Exercise Program,Joint Mobilizations,Manual Therapy, Neuromuscular Re-education, Patient/Caregiver Education, Self-Care/Home Management,Soft Tissue Mobilization, Therapeutic Activities, Therapeutic Exercises Next Visit Focus/Plan Next Note Type Treatment Note Next Visit Plan Condense HEP, requested bring HOs (hasn't thus far). Will work on functional and use machine for strengthening in PT. Progress balance activities. POC: LE strengthening, balance training
--- NOTE | 2022-10-05 11:15 | PT.OTN ---
Current Diagnoses Other chronic pain (10/05/22) Dorsalgia, unspecified (10/05/22) Pain in right leg (10/05/22) Pain in left leg (10/05/22) Unsteadiness on feet (10/05/22) Other abnormalities of gait and mobility (10/05/22) Physical Therapy Treatment Note PT-OP-A Visit Information Start: 08/09/22 17:33 Freq: Status: Active Protocol: Document 10/05/22 10:33 SP (Rec: 10/05/22 11:31 SP [id number]) Out-Patient Physical Therapy Visit Information Visit Information Visit Type Treatment Note Visit Start Time 10:33 Visit Stop Time 11:15 Total Visit Minutes 42 Visit Number 9 Number of LABOR RELATIONS CONSULTANT Visits 1 Evaluation Information Evaluation Date 08/09/22 PT-OP-B Current Condition Start: 08/09/22 17:33 Freq: Status: Active Protocol: Document 08/09/22 16:45 DCW (Rec: 08/09/22 17:47 DCW [id number]) Current Condition History of Current Condition Onset Date Multi-year history Current Complaints Poor balance, LE weakness History of Current Condition Pt is an 87 year old male well known to this clinic presenting with LE weakness, gait disturbances, and poor balance. Pt has been seen at this clinic for these complaints before, most recently between December and April 2022. At time of discharge, pt had largely plateaued, and it was decided to perform a new evaluation for his shoulder pain. Pt was seen for two months for his shoulder, but was unable to progress, largely because he shoulders were constantly sore due to overuse of FWW secondary to his ongoing imbalance and gait difficulty, and therefore decided to discharge shoulders and return once again with a new referral for his balance and gait in an attempt to decrease reliance on UEs while walking . Pt feels leg weakness and imbalance largely began following lumbar surgery in Nov, 2020. Pt fatigues quickly , has difficulty with anything which relies on leg strength or tolerance to activity. Unable to use LEs to stand up or simply stand without UE support. Does note he has not had any falls recently. Requests more intense, difficult exercises, since he plateaued with his last round of PT. Treatment Goals Patient/Caregiver Goals Decrease use of FWW PT-OP-C Subjective Start: 08/09/22 17:33 Freq: Status: Active Protocol: Document 10/05/22 10:33 SP (Rec: 10/05/22 11:31 SP [id number]) OP-PT Subjective Patient Comments Patient Comments I'm doing well today. PT-OP-D Balance Start: 08/09/22 17:33 Freq: Status: Active Protocol: Document 08/09/22 16:45 DCW (Rec: 08/09/22 17:52 DCW [id number]) OP-PT Balance Assessment Sitting Balance Static Sitting Balance Ability Normal Dynamic Sitting Balance Ability Normal Standing Balance Static Standing Balance Ability Poor Dynamic Standing Balance Ability Poor Device Used FWW Balance Tests Other Other Balance Tests Performed Standing double leg without UE support: 9.7 max, three other attempts were 1.7, 1.6 , and 7.8 Mazariegos Fall Scale Copyright Permission PT-OP-E Functional Tests Start: 08/09/22 17:33 Freq: Status: Active Protocol: Document 08/09/22 16:45 DCW (Rec: 08/09/22 17:52 DCW [id number]) Functional Tests 2 Minute Walk Test Distance FWW Device Used 168' Comments 1.4 ft/sec Five Times Sit to Stand Test Comments Unable to perform one UE-free sit<->stand Timed Up and Go (TUG) Score 21.57 Comments Three-trial average (22.27, 21 .20, 21.24) TUG Impairment Rating 100% Impaired (Score 20) PT-OP-G Mobility & Gait Start: 08/09/22 17:33 Freq: Status: Active Protocol: Document 08/09/22 16:45 DCW (Rec: 08/09/22 17:52 DCW [id number]) OP Gait Assessment Gait Deviations General Gait Pattern Decreased Stride Length, Decreased Feet Clearance,Wide Based Gait Factors Limiting Gait Function Factors Limiting Gait Function Decreased Activity Tolerance, Decreased Strength,Poor Balance Comments Gait Comments Pt ambulates with left foot slap and steppage gait due to left ankle weakness PT-OP-M Strength Start: 08/09/22 17:33 Freq: Status: Active Protocol: Document 08/09/22 16:45 DCW (Rec: 08/09/22 17:52 DCW [id number]) Hip Strength Hip Manual Muscle Testing Right Flexion (L2) 4- Good- Abduction 4 Good Adduction 4 Good External Rotation 4- Good- Internal Rotation 4- Good- Left Flexion (L2) 4 Good Abduction 4 Good Adduction 4 Good External Rotation 4- Good- Internal Rotation 4- Good- Knee Strength Knee Manual Muscle Testing Right Flexion (S2) 3+ Fair+ Extension (L3) 4- Good- Left Flexion (S2) 3+ Fair+ Extension (L3) 4- Good- Ankle/Foot Strength Ankle and Foot Manual Muscle Testing Right Dorsiflexion (L4) 3- Fair- Left Dorsiflexion (L4) 2- Poor- PT-OP-Q Treatments Start: 08/09/22 17:33 Freq: Status: Active Protocol: Document 10/05/22 10:33 SP (Rec: 10/05/22 11:31 SP [id number]) Gym Equipment Cable Column (Body Solid) Hip Adduction Details cued head up tall Resistance 35# Reps/Time x15 Hip Abduction Details cued head up tall Resistance 25# Reps/Time x15 Leg Curl Details (back see 2 holes) Resistance 30# Reps/Time 2x10 Leg Extension Details cued head up tall Resistance 2.25 plates (tiring) Reps/Time x15 Shuttle Recovery Plyometric Hopping Details Hopping Resistance 25# Reps/Time x15 (therapist counting and available assist BLE elevation if needs Unilateral Squats Resistance 25# (new band) Shuttle Recovery Platform Stable Reps/Time x15 Bilateral Squats Details cued adductor fac, knees // Resistance 50# (1 new band) Shuttle Recovery Platform Stable Reps/Time x15 Neuro Re-Education Treatment Balance Activities balloon volley Surface black yoga mat, FWW support 1 UE mod/heavy Equipment balloon, PT AIde for partner Comments LABOR RELATIONS CONSULTANT provide CG/ MIn A support, LOB L x2 instances. Improved wt shift between BLEs , balance recovery, cross body switch UE reach/hit improved cues for slower pacing/ easy volley. squat ball/cone transfer Details reach same side, transfer UEs, place same side Surface use FWW support Equipment 5 sets cones, 5 golf balls Reps/Duration 10 ft distance Comments had to face cones last cone due to weakness L knee unsteady. CGA only needed, Mod UE support on FWW 1 UE during squat. PT-OP-T Assessment and Plan Start: 08/09/22 17:33 Freq: Status: Active Protocol: Document 10/05/22 10:33 SP (Rec: 10/05/22 11:31 SP [id number]) Physical Therapy Assessment Goals Three Impairment Pt unable to stand longer than 10 seconds without support Radiologic Technologist Mammogram Goal (LTG) Pt to increased double leg stance time without support to >20 seconds to show increased LE strength and improved ankle strategies. 09/06/22: 2 sec, 10 sec LTG Duration 11/07/22 progressin09/06/22 Two Impairment Pt ambulates with a gait speed of 1.4 ft.sec Impairment A gait speed of less than 1.97 ft/sec is indicative of increased likelihood of further functional decline in older adults. Radiologic Technologist Mammogram Goal (LTG) Pt to increase gait distance to 709' using a FWW during a 6 minute walk test in order to demonstrate decreased risk of functional decline 09/06/22: 2MWT 161 ft LTG Duration 11/07/22 updated 09/06/22 One Impairment Pt does not have an appropriate home exercise program Short Term Goal (STG) Pt to be independent and compliant with an appropriate HEP 08/24/22: added ankle 3 way TB for con/eccentric controll during gait. 08/30/22: Reviewed/added: supine TA heelslide, TA SKFO, side clam/reverse clam, STS 09/06/22: added seated resisted HS curl STG Duration 10/07/22 progressing 09/06/22 Assessment Summary Assessment Pt worked hard, improved standing dynamic UE supported hip hinge squat assimulation safety and functional strengthening picking up items from lower surface (cones) and wt shift between BLEs during static stand balloon volley for progress balance recovery/core fac/ posturing. CGA, Min A as needed w/ additional FWW support 1 UE. Physical Therapy Plan Frequency and Duration Frequency of Treatment 2x/Week Plan of Care Start Date 08/09/22 Plan of Care End Date 11/07/22 Therapeutic Interventions Therapeutic Interventions Balance Training,Gait Training ,Home Exercise Program,Joint Mobilizations,Manual Therapy, Neuromuscular Re-education, Patient/Caregiver Education, Self-Care/Home Management,Soft Tissue Mobilization, Therapeutic Activities, Therapeutic Exercises Next Visit Focus/Plan Next Note Type Treatment Note Next Visit Plan Condense HEP as needed. Continue increase endurance standing activities. POC: Will work on functional and use machine for strengthening in PT. Progress balance activities. POC: LE strengthening, balance training
--- NOTE | 2022-10-11 14:00 | PT-OP ANOTE ---
Pt unable to attend tx, car won't start.
--- NOTE | 2022-10-13 15:15 | PT.OTN ---
Current Diagnoses Other chronic pain (10/13/22) Dorsalgia, unspecified (10/13/22) Pain in right leg (10/13/22) Pain in left leg (10/13/22) Unsteadiness on feet (10/13/22) Other abnormalities of gait and mobility (10/13/22) Physical Therapy Treatment Note PT-OP-A Visit Information Start: 08/09/22 17:33 Freq: Status: Active Protocol: Document 10/13/22 14:35 SP (Rec: 10/13/22 15:28 SP [id number]) Out-Patient Physical Therapy Visit Information Visit Information Visit Type Treatment Note Visit Start Time 14:35 Visit Stop Time 15:15 Total Visit Minutes 40 Visit Number 10 Number of MANAGER SOCIAL Visits 2 Evaluation Information Evaluation Date 08/09/22 PT-OP-B Current Condition Start: 08/09/22 17:33 Freq: Status: Active Protocol: Document 08/09/22 16:45 DCW (Rec: 08/09/22 17:47 DCW [id number]) Current Condition History of Current Condition Onset Date Multi-year history Current Complaints Poor balance, LE weakness History of Current Condition Pt is an 87 year old male well known to this clinic presenting with LE weakness, gait disturbances, and poor balance. Pt has been seen at this clinic for these complaints before, most recently between December and April 2022. At time of discharge, pt had largely plateaued, and it was decided to perform a new evaluation for his shoulder pain. Pt was seen for two months for his shoulder, but was unable to progress, largely because he shoulders were constantly sore due to overuse of FWW secondary to his ongoing imbalance and gait difficulty, and therefore decided to discharge shoulders and return once again with a new referral for his balance and gait in an attempt to decrease reliance on UEs while walking . Pt feels leg weakness and imbalance largely began following lumbar surgery in Nov, 2020. Pt fatigues quickly , has difficulty with anything which relies on leg strength or tolerance to activity. Unable to use LEs to stand up or simply stand without UE support. Does note he has not had any falls recently. Requests more intense, difficult exercises, since he plateaued with his last round of PT. Treatment Goals Patient/Caregiver Goals Decrease use of FWW PT-OP-C Subjective Start: 08/09/22 17:33 Freq: Status: Active Protocol: Document 10/13/22 14:35 SP (Rec: 10/13/22 15:28 SP [id number]) OP-PT Subjective Patient Comments Patient Comments I was little weak after last tx but recover quickly. PT-OP-D Balance Start: 08/09/22 17:33 Freq: Status: Active Protocol: Document 08/09/22 16:45 DCW (Rec: 08/09/22 17:52 DCW [id number]) OP-PT Balance Assessment Sitting Balance Static Sitting Balance Ability Normal Dynamic Sitting Balance Ability Normal Standing Balance Static Standing Balance Ability Poor Dynamic Standing Balance Ability Poor Device Used FWW Balance Tests Other Other Balance Tests Performed Standing double leg without UE support: 9.7 max, three other attempts were 1.7, 1.6 , and 7.8 Mazariegos Fall Scale Copyright Permission PT-OP-E Functional Tests Start: 08/09/22 17:33 Freq: Status: Active Protocol: Document 08/09/22 16:45 DCW (Rec: 08/09/22 17:52 DCW [id number]) Functional Tests 2 Minute Walk Test Distance FWW Device Used 168' Comments 1.4 ft/sec Five Times Sit to Stand Test Comments Unable to perform one UE-free sit<->stand Timed Up and Go (TUG) Score 21.57 Comments Three-trial average (22.27, 21 .20, 21.24) TUG Impairment Rating 100% Impaired (Score 20) PT-OP-G Mobility & Gait Start: 08/09/22 17:33 Freq: Status: Active Protocol: Document 08/09/22 16:45 DCW (Rec: 08/09/22 17:52 DCW [id number]) OP Gait Assessment Gait Deviations General Gait Pattern Decreased Stride Length, Decreased Feet Clearance,Wide Based Gait Factors Limiting Gait Function Factors Limiting Gait Function Decreased Activity Tolerance, Decreased Strength,Poor Balance Comments Gait Comments Pt ambulates with left foot slap and steppage gait due to left ankle weakness PT-OP-M Strength Start: 08/09/22 17:33 Freq: Status: Active Protocol: Document 08/09/22 16:45 DCW (Rec: 08/09/22 17:52 DCW [id number]) Hip Strength Hip Manual Muscle Testing Right Flexion (L2) 4- Good- Abduction 4 Good Adduction 4 Good External Rotation 4- Good- Internal Rotation 4- Good- Left Flexion (L2) 4 Good Abduction 4 Good Adduction 4 Good External Rotation 4- Good- Internal Rotation 4- Good- Knee Strength Knee Manual Muscle Testing Right Flexion (S2) 3+ Fair+ Extension (L3) 4- Good- Left Flexion (S2) 3+ Fair+ Extension (L3) 4- Good- Ankle/Foot Strength Ankle and Foot Manual Muscle Testing Right Dorsiflexion (L4) 3- Fair- Left Dorsiflexion (L4) 2- Poor- PT-OP-Q Treatments Start: 08/09/22 17:33 Freq: Status: Active Protocol: Document 10/13/22 14:35 SP (Rec: 10/13/22 15:28 SP [id number]) Gym Equipment Shuttle Recovery Plyometric Hopping Details Hopping Resistance 25# Reps/Time x15 (therapist counting and available assist BLE elevation if needs Unilateral Squats Details B Resistance 25# (new band) Shuttle Recovery Platform Stable Reps/Time x15 Bilateral Squats Details improved knees // Resistance 50# (1 new band) Shuttle Recovery Platform Stable Reps/Time x20 Therapeutic Exercises Sitting Exercises HS curls Sitting Exercise Name reviewed HEP (declined HO) Side bilateral Resistance TB # 1> #3 Equipment Used therapist anchored, on chair leg with someone sitting on chair home Reps/Minutes 2x10 Comments Cued scoot full back chair, good effort work ankle strengthening Sitting Exercise Name verbal reviewed to continue HEP: PF, DF, EV Resistance Tb #3 RLE full range, LLE partial range Equipment Used therapist anchored, states hold himself at home Reps/Minutes 2x10 reps Comments cued much range as can. Neuro Re-Education Treatment Balance Activities eva stepping Details f/lateral- 2 laps seated rest between sets Surface 1 HR support Equipment 3 sets cones, 2 sets pods ( side by side assimulate hurdles) Reps/Duration 10 ft Comments cued soft L knee during RLE advancement squat ball/cone transfer Details reach same side, transfer UEs, place same side Surface use FWW support Equipment 5 sets cones> swapped for 2 set pods, 5 golf balls Reps/Duration 10 ft distance x1 lap Comments able to Lateral wt shift facing foward to get balls, swap to opp hand then place opp hand. CGA/close SBA only needed. Mod 1 UE support on FWW self stable. PT-OP-T Assessment and Plan Start: 08/09/22 17:33 Freq: Status: Active Protocol: Document 10/13/22 14:35 SP (Rec: 10/13/22 15:28 SP [id number]) Physical Therapy Assessment Goals Three Impairment Pt unable to stand longer than 10 seconds without support Hand Cloth Cutter Goal (LTG) Pt to increased double leg stance time without support to >20 seconds to show increased LE strength and improved ankle strategies. 09/06/22: 2 sec, 10 sec LTG Duration 11/07/22 progressin09/06/22 Two Impairment Pt ambulates with a gait speed of 1.4 ft.sec Impairment A gait speed of less than 1.97 ft/sec is indicative of increased likelihood of further functional decline in older adults. Intermediate Goal (LTG) Pt to increase gait distance to 709' using a FWW during a 6 minute walk test in order to demonstrate decreased risk of functional decline 09/06/22: 2MWT 161 ft LTG Duration 11/07/22 updated 09/06/22 One Impairment Pt does not have an appropriate home exercise program Short Term Goal (STG) Pt to be independent and compliant with an appropriate HEP 08/24/22: added ankle 3 way TB for con/eccentric controll during gait. 08/30/22: Reviewed/added: supine TA heelslide, TA SKFO, side clam/reverse clam, STS 09/06/22: added seated resisted HS curl 10/13/22: increased TB #3 HS curl, DF. STG Duration 10/07/22 progressing 10/13/22 Assessment Summary Assessment Pt worked hard, requires seated rests between sets of standing activities today recover tiring. He was able to increase reps on shuttle recovery and able reach laterally for cone ball transfer today with good hip hinge squat form. Physical Therapy Plan Frequency and Duration Frequency of Treatment 2x/Week Plan of Care Start Date 08/09/22 Plan of Care End Date 11/07/22 Therapeutic Interventions Therapeutic Interventions Balance Training,Gait Training ,Home Exercise Program,Joint Mobilizations,Manual Therapy, Neuromuscular Re-education, Patient/Caregiver Education, Self-Care/Home Management,Soft Tissue Mobilization, Therapeutic Activities, Therapeutic Exercises Next Visit Focus/Plan Next Note Type Progress Note Next Visit Plan PN next visit. Updated goals and what performing as HEP. Continue increase endurance standing activities. POC: Will work on functional and use machine for strengthening in PT. Progress balance activities. POC: LE strengthening, balance training
--- NOTE | 2022-10-19 11:58 | PT.OTN ---
Current Diagnoses Other chronic pain (10/19/22) Dorsalgia, unspecified (10/19/22) Pain in right leg (10/19/22) Pain in left leg (10/19/22) Unsteadiness on feet (10/19/22) Other abnormalities of gait and mobility (10/19/22) Physical Therapy Treatment Note PT-OP-A Visit Information Start: 08/09/22 17:33 Freq: Status: Active Protocol: Document 10/19/22 11:15 DCW (Rec: 10/19/22 11:55 DCW [id number]) Out-Patient Physical Therapy Visit Information Visit Information Visit Type Discharge Summary Visit Start Time 11:15 Visit Stop Time 11:50 Total Visit Minutes 35 Visit Number 11 Number of AUTOMATIC [employer]OVE FORMER Visits 0 Evaluation Information Evaluation Date 08/09/22 PT-OP-B Current Condition Start: 08/09/22 17:33 Freq: Status: Active Protocol: Document 08/09/22 16:45 DCW (Rec: 08/09/22 17:47 DCW [id number]) Current Condition History of Current Condition Onset Date Multi-year history Current Complaints Poor balance, LE weakness History of Current Condition Pt is an 87 year old male well known to this clinic presenting with LE weakness, gait disturbances, and poor balance. Pt has been seen at this clinic for these complaints before, most recently between December and April 2022. At time of discharge, pt had largely plateaued, and it was decided to perform a new evaluation for his shoulder pain. Pt was seen for two months for his shoulder, but was unable to progress, largely because he shoulders were constantly sore due to overuse of FWW secondary to his ongoing imbalance and gait difficulty, and therefore decided to discharge shoulders and return once again with a new referral for his balance and gait in an attempt to decrease reliance on UEs while walking . Pt feels leg weakness and imbalance largely began following lumbar surgery in Nov, 2020. Pt fatigues quickly , has difficulty with anything which relies on leg strength or tolerance to activity. Unable to use LEs to stand up or simply stand without UE support. Does note he has not had any falls recently. Requests more intense, difficult exercises, since he plateaued with his last round of PT. Treatment Goals Patient/Caregiver Goals Decrease use of FWW PT-OP-C Subjective Start: 08/09/22 17:33 Freq: Status: Active Protocol: Document 10/19/22 11:15 DCW (Rec: 10/19/22 11:55 DCW [id number]) OP-PT Subjective Patient Comments Patient Comments It doesn't seem to me like much has changed. PT-OP-D Balance Start: 08/09/22 17:33 Freq: Status: Active Protocol: Document 08/09/22 16:45 DCW (Rec: 08/09/22 17:52 DCW [id number]) OP-PT Balance Assessment Sitting Balance Static Sitting Balance Ability Normal Dynamic Sitting Balance Ability Normal Standing Balance Static Standing Balance Ability Poor Dynamic Standing Balance Ability Poor Device Used FWW Balance Tests Other Other Balance Tests Performed Standing double leg without UE support: 9.7 max, three other attempts were 1.7, 1.6 , and 7.8 Mazariegos Fall Scale Copyright Permission PT-OP-E Functional Tests Start: 08/09/22 17:33 Freq: Status: Active Protocol: Document 10/19/22 11:15 DCW (Rec: 10/19/22 11:58 DCW [id number]) Functional Tests 2 Minute Walk Test Distance FWW Device Used 185' Comments 1.54 ft/sec Five Times Sit to Stand Test Score 33.03 using B UEs Comments Unable to perform one UE-free sit<->stand Timed Up and Go (TUG) Score 21.15 Comments Three-trial average (21.84, 20 .45, 21.15) TUG Impairment Rating 100% Impaired (Score 20) PT-OP-G Mobility & Gait Start: 08/09/22 17:33 Freq: Status: Active Protocol: Document 08/09/22 16:45 DCW (Rec: 08/09/22 17:52 DCW [id number]) OP Gait Assessment Gait Deviations General Gait Pattern Decreased Stride Length, Decreased Feet Clearance,Wide Based Gait Factors Limiting Gait Function Factors Limiting Gait Function Decreased Activity Tolerance, Decreased Strength,Poor Balance Comments Gait Comments Pt ambulates with left foot slap and steppage gait due to left ankle weakness PT-OP-M Strength Start: 08/09/22 17:33 Freq: Status: Active Protocol: Document 08/09/22 16:45 DCW (Rec: 08/09/22 17:52 DCW [id number]) Hip Strength Hip Manual Muscle Testing Right Flexion (L2) 4- Good- Abduction 4 Good Adduction 4 Good External Rotation 4- Good- Internal Rotation 4- Good- Left Flexion (L2) 4 Good Abduction 4 Good Adduction 4 Good External Rotation 4- Good- Internal Rotation 4- Good- Knee Strength Knee Manual Muscle Testing Right Flexion (S2) 3+ Fair+ Extension (L3) 4- Good- Left Flexion (S2) 3+ Fair+ Extension (L3) 4- Good- Ankle/Foot Strength Ankle and Foot Manual Muscle Testing Right Dorsiflexion (L4) 3- Fair- Left Dorsiflexion (L4) 2- Poor- PT-OP-Q Treatments Start: 08/09/22 17:33 Freq: Status: Active Protocol: Document 10/19/22 11:15 DCW (Rec: 10/19/22 11:55 DCW [id number]) Gym Equipment Shuttle Recovery Plyometric Hopping Details Hopping Resistance 25# Reps/Time x15 Unilateral Squats Details B Resistance 25# (new band) Shuttle Recovery Platform Stable Reps/Time x15 Bilateral Squats Resistance 50# (1 new band) Shuttle Recovery Platform Stable Reps/Time x15 PT-OP-T Assessment and Plan Start: 08/09/22 17:33 Freq: Status: Active Protocol: Document 10/19/22 11:15 DCW (Rec: 10/19/22 11:55 DCW [id number]) Physical Therapy Assessment Goals Three Impairment Pt unable to stand longer than 10 seconds without support Halfway Goal (LTG) Pt to increased double leg stance time without support to >20 seconds to show increased LE strength and improved ankle strategies. 09/06/22: 2 sec, 10 sec LTG Duration 11/07/22 progressin09/06/22 Two Impairment Pt ambulates with a gait speed of 1.4 ft.sec Impairment A gait speed of less than 1.97 ft/sec is indicative of increased likelihood of further functional decline in older adults. Refractory Worker Goal (LTG) Pt to increase gait distance to 709' using a FWW during a 6 minute walk test in order to demonstrate decreased risk of functional decline 09/06/22: 2MWT 161 ft LTG Duration 11/07/22 updated 09/06/22 One Impairment Pt does not have an appropriate home exercise program Short Term Goal (STG) Pt to be independent and compliant with an appropriate HEP 08/24/22: added ankle 3 way TB for con/eccentric control during gait. 1/31/23: Reviewed/added: supine TA heelslide, TA SKFO, side clam/reverse clam, STS 09/06/22: added seated resisted HS curl 10/13/22: increased TB #3 HS curl, DF. STG Duration 10/07/22 progressing 10/13/22 Assessment Summary Assessment Retesting today agrees with pt assessment that he has not made any progress since initial evaluation. Therapist and patient in agreement that pt has reached progress plateau, and is unlikely to benefit from any further out- patient therapy. Pt will be discharged from skilled therapy at this time. Physical Therapy Plan Frequency and Duration Frequency of Treatment 2x/Week Plan of Care Start Date 08/09/22 Plan of Care End Date 11/07/22 Therapeutic Interventions Therapeutic Interventions Balance Training,Gait Training ,Home Exercise Program,Joint Mobilizations,Manual Therapy, Neuromuscular Re-education, Patient/Caregiver Education, Self-Care/Home Management,Soft Tissue Mobilization, Therapeutic Activities, Therapeutic Exercises Discharge Physical Therapy Discharge Reasons Plateau in Progress Next Visit Focus/Plan Next Note Type Discharge Summary
== END 2022-10-20 14:21 | disposition home or self-care (01) ==
LOC: PHYS 11:15
PROVIDERS: Family Provider Internal Medicine; PCP Internal Medicine; Referring Provider Internal Medicine; Visit Provider Internal Medicine
DX: R26.81 Unsteadiness on feet (principal); M54.9 Dorsalgia, unspecified; G89.29 Other chronic pain; M79.604 Pain in right leg; M79.605 Pain in left leg; R26.89 Other abnormalities of gait and mobility
CPT/HCPCS: 97110; 97112; 97162

== ENCOUNTER → 2022-11-10 07:14 | Outpatient (CLI) | payer MEDICARE, OTHER, SELFPAY ==
[2022-01-18 15:17] VITALS: BMI 25.8
[2022-11-10 09:11] LABS: Cholesterol 197 mg/dL (140-199); HDL Cholesterol 35 mg/dL (40-60); LDL Cholesterol Calculated 119 mg/dL (<100); Triglycerides 213 mg/dL (35-150)
== END ==
PROVIDERS: Family Provider Internal Medicine; PCP Internal Medicine; Referring Provider Internal Medicine Interventional Cardiology; Visit Provider Internal Medicine Interventional Cardiology
DX: E78.5 Hyperlipidemia, unspecified (principal); I73.9 Peripheral vascular disease, unspecified
CPT/HCPCS: 36415; 80061

== ENCOUNTER 2023-01-15 18:39 | Emergency (ER) | payer MEDICARE, OTHER, SELFPAY ==
[2022-01-18 15:17] VITALS: BMI 25.8
[2023-01-15] VITALS (8 sets, daily range): BP systolic 180–192; BP diastolic 80–91; PULSE 66–73; RESP 13–17; O2SAT 98–100; BMI 25.1
--- NOTE | 2023-01-15 18:45 | DI.CT.S_ITS ---
PROCEDURE: CT HEAD/BRAIN WO CON INDICATIONS: fall hit head on thinners TECHNIQUE: Noncontrast 4.5 mm thick angled axial sections acquired from the foramen magnum to the vertex, with coronal and sagittal reformats. For radiation dose reduction, the following was used: automated exposure control, adjustment of mA and/or kV according to patient size. COMPARISON: [facility], CT, CT HEAD/BRAIN WO CON, 04/13/2022, 23:05. [facility], CT, CT HEAD/BRAIN WO CON, 12/23/2020, 17:04. FINDINGS: Image quality: Excellent. CSF spaces: Basal cisterns are patent. No extra-axial fluid collections. The ventricles are symmetric in size and shape. Brain: No intracranial bleeds or masses. There is cerebral volume loss for age, with resultant ventricular and sulcal prominence. There are periventricular and deep white matter chronic small vessel ischemic changes. There is intracranial internal carotid artery atherosclerosis. Skull and face: Calvarium and visualized facial bones appear intact, without suspicious lesions. Sinuses: Visualized sinuses and mastoids are clear. IMPRESSION: 1. CT head without acute intracranial abnormalities or acute calvarial fractures. 2. Age-related senescent changes and sequela of chronic small vessel ischemic disease. Dictated by: Bora Bolden M.D. on 01/15/2023 at 19:35 Approved by: Bora Bolden M.D. on 01/15/2023 at 19:36
--- NOTE | 2023-01-15 18:45 | DI.CT.S_ITS ---
PROCEDURE: CT CERVICAL SPINE WO CON INDICATIONS: fall hit head on thinners TECHNIQUE: Noncontrast 3 mm thick sections acquired from the skull base to the T4 level. Sagittal and coronal reformats were then constructed. For radiation dose reduction, the following was used: automated exposure control, adjustment of mA and/or kV according to patient size. COMPARISON: [facility], CT, CT CERVICAL SPINE WO CON, 04/13/2022, 23:05. FINDINGS: Image quality: Excellent. Bones: No acute fractures or dislocations. No acute compression fractures of the vertebral bodies. Craniocervical junction is intact. C1-C2 relationship is preserved. Visualized superior ribs are intact. Straightening of normal cervical lordosis. Moderate-severe multilevel cervical spondylosis with degenerative endplate changes, disc space loss, and prominent endplate osteophyte formation. Variable degrees of bilateral bony neuroforaminal stenosis. Severe spinal canal stenosis secondary to prominent posterior endplate osteophytes at C4-5 as well as moderate-severe spinal canal stenosis secondary to posterior disc osteophyte complex at C5-6 and C6-7. Soft tissues: Prevertebral soft tissues are normal in thickness. No paravertebral hematomas. No apical pneumothoraces. IMPRESSION: CT cervical spine without acute fracture or traumatic malalignment. Severe multilevel cervical spondylosis with severe spinal canal stenosis secondary to prominent posterior endplate osteophytes at C4-5 as well as moderate-severe spinal canal stenosis secondary to posterior disc osteophyte complex at C5-6 and C6-7. Mild straightening of normal cervical lordosis likely related to positioning and/or concurrent muscle spasms. Dictated by: Bora Bolden M.D. on 01/15/2023 at 19:36 Approved by: Bora Bolden M.D. on 01/15/2023 at 19:41
--- NOTE | 2023-01-15 18:48 | PC.NURSE ---
pt states that he has had a stroke in the past. takes warfarin. appears confused and unk if baseline due to no family being with him at this time. reports a mechanical fall in his kitchen in which he hit his head. denies pain.
--- NOTE | 2023-01-15 18:54 | DI.RAD.S_ITS ---
PROCEDURE: XR HIP W PEL IF DONE RT 2V INDICATIONS: fall with pain TECHNIQUE: AP pelvis with lateral view(s) of the right hip(s). COMPARISON: None. FINDINGS: Bones: No definite fracture. Normal alignment. Mild degenerative changes. Pelvic ring appears intact. No suspicious bony lesions. Partially imaged lower lumbar spinal fusion hardware. Sacroiliac joints appear symmetric. Soft tissues: The visualized bowel gas pattern is normal. No suspicious soft tissue calcifications. IMPRESSION: Right hip without acute fracture or dislocation. Mild degenerative changes. If there is high clinical suspicion for occult hip fracture, recommend further characterization with CT or MRI. Other chronic findings as above. Dictated by: Bora Bolden M.D. on 01/15/2023 at 19:33 Approved by: Bora Bolden M.D. on 01/15/2023 at 19:35
--- NOTE | 2023-01-15 20:06 | ED_ITS ---
HPI - Fall General Chief Complaint: Fall Stated Complaint: mechanical fall hit head on thinners Time Seen by Provider: 01/15/23 18:45 History of Present Illness HPI Narrative: 87-year-old gentleman the history of neuropathy and gait instability currently anticoagulated on Coumadin per the patient (apixaban and Plavix are listed as his anticoagulation on his med list) for coronary artery disease, peripheral arterial disease history of a AAA. Additionally he does have hypertension and sick sinus syndrome with episodes of syncope. Who turned quickly in the kitchen lost his balance fell backwards and hit his head. Denies headache, neck pain, any other injuries from his fall and was able to walk into the department without difficulty. Related Data Home Medications Medication Instructions Recorded Confirmed losartan 100 mg tablet 100 mg PO DAILY 03/02/18 09/19/22 acetaminophen 325 mg capsule 325 mg PO DAILY PRN Pain 07/29/20 09/19/22 (Tylenol) metoprolol succinate 25 mg 25 mg PO DAILY 12/14/20 09/19/22 tablet,extended release 24 hr apixaban 5 mg tablet (Eliquis) 2.5 mg PO BID 04/26/21 09/19/22 pravastatin 40 mg tablet 40 mg PO BEDTIME 02/25/22 09/19/22 gabapentin 400 mg capsule 600 mg PO BEDTIME 06/10/22 09/19/22 Previous Rx's Medication Instructions Recorded Disabled Parking #1 ea 06/15/20 clopidogrel 75 mg tablet 75 mg PO DAILY #90 tabs 12/14/20 gabapentin 400 mg capsule See Rx Instructions PO .COMPLEX 10/25/22 #270 caps Allergies Allergy/AdvReac Type Severity Reaction Status Date / Time alprazolam [From Xanax] AdvReac Severe Passed Out Verified 09/19/22 11:18 oxycodone AdvReac Severe Passed Out Verified 09/19/22 11:18 Review of Systems Review of Systems Narrative: Pertinent positive and negative findings as per HPI Patient History Medical History (Updated 01/15/23 @ 20:36 by Demi Hastings MD) Acromioclavicular joint separation, type 2 CAD (coronary artery disease) (~2007) Cervical stenosis of spinal canal Chronic back pain Colon polyps (~2010) COVID-19 (~12/2021) CVA (cerebral vascular accident) (2015) Facet arthropathy, lumbar Foraminal stenosis of lumbosacral region Gait instability H/O: stroke (04/10/16) Hyperlipidemia Hypertension (~2016) Lumbar post-laminectomy syndrome Lumbosacral spondylosis Measles Mumps Neuropathy Osteoarthritis PAD (peripheral artery disease) Peripheral neuropathy (~1979) Peripheral vascular disease Rotator cuff impingement syndrome of right shoulder Sick sinus syndrome Skin cancer Spinal stenosis Spinal stenosis of lumbar region without neurogenic claudication Spondylolisthesis at L4-L5 level Squamous cell skin cancer (~2015) Syncope Vertigo (~2013) Vision disorder Surgical History History of lumbar laminectomy (1988) History of lumbar laminectomy (1952) History of surgery (2007) History of surgery (1952) History of vasectomy Hx of bilateral cataract extraction 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 Mother No problems noted. Brother Diabetes mellitus Hypertension Hyperlipidemia Grandfather No problems noted. 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 travel history: other leisure activities: music and other Smoking Status: Former smoker Tobacco: How many years used: 10 Smokeless tobacco user: other quit status: quit date established alcohol intake: current substance use type: does not use Smoking Status: Former smoker alcohol intake frequency: a few times a month Substance Use Type: does not use Exam Initial Vital Signs Initial Vital Signs: Vital Signs Pulse Rate 67 01/15/23 18:41 Respiratory Rate 16 01/15/23 18:41 Blood Pressure 192/91 H 01/15/23 18:41 Pulse Oximetry 100 01/15/23 18:41 Oxygen Delivery Method Room Air 01/15/23 18:41 General: Appears to be at his baseline, in no acute distress. Able to cooperate with exam and history HEENT: Moist mucous membranes, normal sclera with reactive pupils, atraumatic, normocephalic Neck: No JVD, supple, no midline cervical spine tenderness Respiratory: Lungs are clear to auscultation, no wheezing no rales no rhonchi. Full and symmetrical air movement Cardiac: Regular rate and rhythm no murmurs no bruits Abdomen: Soft, nontender, good bowel tones, no flank pain Skin: Warm and dry, no rashes Neurologic: Grossly neurologically mild left eyelid droop secondary to prior stroke. No acute neurologic findings Extremities: No trauma, well perfused, no tenderness with manipulation of both hips and no thoracic or lumbar spine tenderness. Psych: Cooperative, appropriate insight and affect Course Orders Ordered: ED Orders 01/15/23 18:45 CT cervical spine wo con Stat CT head/brain wo con Stat 01/15/23 18:54 XR hip w pel if done RT 2V Stat Vital Signs Vital signs: Vital Signs - 8 hr 01/15/23 18:41 Pulse Rate 67 Respiratory Rate 16 Blood Pressure 192/91 H Pulse Oximetry 100 Oxygen Delivery Method Room Air MDM - Fall MDM Narrative Medical decision making narrative: CC: Mechanical fall anticoagulated, acute issue uncertain prognosis Complicating co-morbidities: Chronic falls, gait instability anticoagulation Data collected from: patient, Medical records reviewed: Cardiology note from July of 2022 Differential considered: Stroke, intracranial hemorrhage, trauma from his fall, cardiac arrhythmia Exam documented above, pertinent findings include: Patient seems to be at his baseline. He is complaining of no pain. His head is atraumatic. He has slight left eyelid drag from his prior stroke. Remainder of exam is entirely benign Lab Test not indicated today Imaging studies independently reviewed: CT scan of the head shows no intracranial hemorrhage, no suggestion of acute stroke CT of the cervical spine shows chronic arthritis with no acute fractures X-ray of the hip shows no acute fractures Discussion: 87-year-old gentleman with multiple medical issues including peripheral neuropathy, gait instability multiple cardiac issues for which he is anticoagulated who suffered a mechanical fall that was witnessed by his this evening. Is adamant that he has been at his baseline and feeling well with no chest pain, orthopnea, weakness, cardiac arrhythmia or syncope type feelings associated with his fall. X-rays and CT scans show no abnormalities. With no additional complaints and with shared decision-making we opted to not do any additional medical workup at this time. He does have a follow-up appointment with his primary care physician in the morning. Did suggest that if he developed any pain in the next day or 2 from his fall this evening, Tylenol would be appropriate. Questions are answered and he is safe for discharge home Discharge Plan Departure Patient Disposition: Home Clinical Impression: Anticoagulated Accident due to mechanical fall without injury Qualifiers: Encounter type: initial encounter Qualified Code(s): W19.XXXA - Unspecified fall, initial encounter Head injury Qualifiers: Encounter type: initial encounter Qualified Code(s): S09.90XA - Unspecified injury of head, initial encounter Instructions: DI for Closed Head Injury Activity Restrictions/Additional Instructions: Thank you for coming in today The CT scanc of your head and your neck were both reassuring. There does not appear to be any bleeding inside your brain. No fractures and nothing else that needs immediate or emergent attention. The x-ray of your hip also did not show any acute fractures. Please continue all of your usual medications. If you do notice that your bit sore from your fall by tomorrow, Tylenol would be appropriate Make sure that you keep your primary care appointment as scheduled in the morning. If you find that you are getting worse or develop any new symptoms, please feel free to return to the emergency department for further evaluation. Prescriptions: No Action (DME) Disabled Parking See Rx Instructions .ROUTE .MEDSUPPLY Qty: 1 0RF Rx Instructions: Patient qualifies for disabled parking as per the attached form. clopidogrel 75 mg tablet 75 mg PO DAILY Qty: 90 3RF gabapentin 400 mg capsule 600 mg PO BEDTIME gabapentin 400 mg capsule See Rx Instructions PO .COMPLEX Qty: 270 3RF Rx Instructions: 1 capsule PO in AM, 2 caps in PM. losartan 100 mg tablet 100 mg PO DAILY Eliquis 5 mg tablet 2.5 mg PO BID pravastatin 40 mg tablet 40 mg PO BEDTIME metoprolol succinate 25 mg Tablet Extended Release 24 Hr 25 mg PO DAILY acetaminophen [Tylenol] 325 mg capsule 325 mg PO DAILY PRN (Reason: Pain) Referrals: Dalton Proctor MD [Primary Care Provider] - Stand Alone Forms: Patient Portal/API
== END 2023-01-15 20:49 | disposition home or self-care (01) ==
PROVIDERS: Emergency Provider Emergency Medicine; Family Provider Internal Medicine; PCP Internal Medicine
DX: S09.90XA Unspecified injury of head, initial encounter (principal); W18.30XA Fall on same level, unspecified, initial encounter; Z79.01 Long term (current) use of anticoagulants
CPT/HCPCS: 70450; 72125; 73502; 99283; 99284

== ENCOUNTER → 2023-03-06 14:02 | Outpatient (CLI) | payer MEDICARE, OTHER, SELFPAY ==
[2022-01-18 15:17] VITALS: BMI 25.8
--- NOTE | 2023-03-06 | DI.CT.S_ITS ---
PROCEDURE: CT LUMBAR SPINE WO CON INDICATIONS: Other spondylosis with radiculopathy, lumbosacral TECHNIQUE: Noncontrast 3 mm thick sections acquired from the T12 level to the sacrum. Sagittal and coronal reformats were constructed. For radiation dose reduction, the following was used: automated exposure control. COMPARISON: [facility], CR, XR LUMBAR SPINE 2 OR 3 VIEWS, 02/23/2023, 8:51. [facility], CT, CT LUMBAR SPINE WO CON, 06/24/2019, 8:39. FINDINGS: Image quality: Excellent. Bones: Postsurgical changes are seen from hemilaminotomy and posterior fixation at L3-4 and L4-5 . Bilateral pedicle screws and interbody rods are seen as well as disc spacers. There is mild levoconvex curvature of the lumbar spine. No acute vertebral body compression fractures. No suspicious lytic or blastic bony lesions. No pars defects. T12-L1: No significant spinal canal stenosis or neural foraminal narrowing. L1-L2: Severe loss of disc space height with 2 mm grade 1 retrolisthesis, circumferential disc bulging, and mild bilateral facet hypertrophy. Findings result in deci-ms-[id number] narrowing of the spinal canal with moderate bilateral neural foraminal narrowing. L2-L3: Mild loss of disc space height and circumferential disc bulging and moderate left and mild right facet hypertrophy as well as buckling of the ligamentum flavum. Findings result in moderate to severe narrowing of the spinal canal as well as moderate to severe right and moderate left neural foraminal narrowing. Findings have progressed when compared to the prior CT from 06/24/2019. L3-L4: Status post hemilaminotomy with decompression of the spinal canal. There is moderate bilateral neural foraminal narrowing. L4-L5: Postsurgical changes from hemilaminectomy with decompression of the spinal canal. Bilateral facet hypertrophy is seen. There is moderate narrowing of the bilateral neural foramina. L5-S1: Disc desiccation and mild circumferential disc bulging as well as moderate to severe bilateral facet hypertrophy. Findings result in mild narrowing of the spinal canal and moderate bilateral neural foraminal narrowing. Soft tissues: No retroperitoneal masses or hematomas. Visualized aorta is normal in caliber. Mild atelectasis in the lung bases. Bilateral benign-appearing renal cysts are partially included. Aortic atherosclerotic calcifications are present. IMPRESSION: 1. Postsurgical changes from hemilaminotomies and posterior fixation at L3-4 and L4-5 with decompression of the spinal canal. 2. Multilevel degenerative disc disease and facet hypertrophy are seen as described in detail in the body of the report. 3. At L2-3, degenerative changes result in moderate to severe narrowing of the spinal canal and moderate to severe right and moderate left neural foraminal narrowing, which has progressed when compared to the CT from 06/24/2019. Approved by: Star Jones M.D. on 03/06/2023 at 22:13
== END ==
PROVIDERS: Family Provider Internal Medicine; PCP Internal Medicine; Referring Provider Orthopaedic Surgery Orthopaedic Surgery of the Spine; Visit Provider Orthopaedic Surgery Orthopaedic Surgery of the Spine
DX: M47.27 Other spondylosis with radiculopathy, lumbosacral region (principal); M47.26 Other spondylosis with radiculopathy, lumbar region; M51.16 Intervertebral disc disorders with radiculopathy, lumbar region; M51.17 Intervertebral disc disorders with radiculopathy, lumbosacral region; M48.061 Spinal stenosis, lumbar region without neurogenic claudication; M48.07 Spinal stenosis, lumbosacral region
CPT/HCPCS: 72131

== ENCOUNTER → 2023-03-09 08:06 | Outpatient (CLI) | payer MEDICARE, OTHER, SELFPAY ==
[2022-01-18 15:17] VITALS: BMI 25.8
[2023-03-09 09:10] LABS: BUN Creatinine Ratio 29.1 (6-22); Blood Urea Nitrogen 25 mg/dL (9-20); Calcium 8.7 mg/dL (8.4-10.2); Carbon Dioxide 26 mmol/L (22-32); Chloride 106 mmol/L (98-107); Estimated Glomerular Filt Rate > 60 mL/min (>60); Glucose 94 mg/dL (80-110); HEMOLYSIS < 15 (0-50); Potassium 4.9 mmol/L (3.4-5.1); Sodium 138 mmol/L (137-145)
== END ==
PROVIDERS: Family Provider Internal Medicine; PCP Internal Medicine; Referring Provider Internal Medicine Interventional Cardiology; Visit Provider Internal Medicine Interventional Cardiology
DX: Z95.5 Presence of coronary angioplasty implant and graft (principal)
CPT/HCPCS: 36415; 80048

== ENCOUNTER 2023-04-22 10:19 | Emergency (ER) | payer MEDICARE, OTHER, SELFPAY ==
[2022-01-18 15:17] VITALS: BMI 25.8
--- NOTE | 2023-04-22 10:24 | ED.GENADULT ---
HPI - General Adult General Chief complaint: Recheck/Abnormal Lab/Rx Stated complaint: post op problems in eye Time Seen by Provider: 04/22/23 10:23 History of Present Illness HPI narrative: 87-year-old male with history of hypertension, pacemaker, prior stroke on chronic anticoagulation presents with a chief complaint of right eye irritation. He had a procedure with the [facility] yesterday to repair a droopy lower lid. he states that he feels like 1 of the sutures is scratching his eye. He called his physician (Dr. Guidry) and was encouraged to present to their office in [place] but given the distance he elected to present here instead. He denies any significant pain, no drainage or bleeding, no fever or chills and is otherwise well and free of complaint Related Data Home Medications Medication Instructions Recorded Confirmed losartan 100 mg tablet 100 mg PO DAILY 03/02/18 03/20/23 acetaminophen 325 mg capsule 325 mg PO DAILY PRN Pain 07/29/20 03/20/23 (Tylenol) metoprolol succinate 25 mg 25 mg PO DAILY 12/14/20 03/20/23 tablet,extended release 24 hr apixaban 5 mg tablet (Eliquis) 2.5 mg PO BID 04/26/21 03/20/23 Previous Rx's Medication Instructions Recorded Disabled Parking #1 ea 06/15/20 gabapentin 400 mg capsule See Rx Instructions PO .COMPLEX 10/25/22 #270 caps pravastatin 40 mg tablet 40 mg PO BEDTIME #90 tabs 01/23/23 Allergies Allergy/AdvReac Type Severity Reaction Status Date / Time alprazolam [From Xanax] AdvReac Severe Passed Out Verified 03/20/23 09:12 oxycodone AdvReac Severe Passed Out Verified 03/20/23 09:12 Review of Systems Review of Systems Narrative: GENERAL: Denies chills, fatigue, malaise, fever, sweats. HEENT: see HPI RESPIRATORY: Denies dyspnea, cough, wheezing, hemoptysis, sputum. CARDIOVASCULAR: Denies chest pain, palpitations, orthopnea, edema, GASTROINTESTINAL: Denies nausea, vomiting, abdominal pain, diarrhea, constipation, melena. : Denies dysuria, frequency, incontinence, hematuria, urinary retention. MUSCULOSKELETAL: denies weakness, joint pain, or bony pain SKIN: Denies rash, skin lesions, or other NEUROLOGIC: Denies weakness, headache, numbness, change in speech, confusion, seizures, incoordination. PSYCHIATRIC: No concerning psychosocial issues. 12 point review of systems is negative except for those stated above Patient History Medical History Acromioclavicular joint separation, type 2 CAD (coronary artery disease) (~2007) Cervical stenosis of spinal canal Chronic back pain Colon polyps (~2010) COVID-19 (~12/2021) CVA (cerebral vascular accident) (2016) Facet arthropathy, lumbar Foraminal stenosis of lumbosacral region Gait instability H/O: stroke (04/10/16) Hyperlipidemia Hypertension (~2016) Lumbar post-laminectomy syndrome Lumbosacral spondylosis Measles Mumps Neuropathy Osteoarthritis PAD (peripheral artery disease) Peripheral neuropathy (~1979) Peripheral vascular disease Rotator cuff impingement syndrome of right shoulder Sick sinus syndrome Skin cancer Spinal stenosis Spinal stenosis of lumbar region without neurogenic claudication Spondylolisthesis at L4-L5 level Squamous cell skin cancer (~2015) Syncope Vertigo (~2013) Vision disorder Surgical History History of lumbar laminectomy (1988) History of lumbar laminectomy (1952) History of surgery (2007) History of surgery (1952) History of vasectomy Hx of bilateral cataract extraction 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 Mother No problems noted. Brother Diabetes mellitus Hypertension Hyperlipidemia Grandfather No problems noted. 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 External silk suture noted with in tact external bolster. Minimal swelling, and ecchymosis. NO drainage. Pupils are equal, round, and reactive to light and accommodation. Extraoccular muscles are intact bilaterally. There is no subconjunctival hemorrhage or exudate. CHEST: Lungs are clear to auscultation bilaterally and free of wheezes, rales, or rhonchi. Heart rate is regular rhythm, there are no murmurs, clicks, rubs, or gallops. There is no chest wall tenderness. ABD: Abdomen is soft and nontender. There is no guarding or rebound. Bowel sounds are normal in all 4 quadrants. There is no mass or organomegaly. EXT: Full painless ROM of all extremities with no loss of sensation or strength. SKIN: Warm, pink, and dry. No erythema or rash Initial Vital Signs Initial Vital Signs: Vital Signs Pulse Rate 78 04/22/23 10:34 Respiratory Rate 18 04/22/23 10:34 Blood Pressure 193/85 H 04/22/23 10:34 Pulse Oximetry 99 04/22/23 10:34 Oxygen Delivery Method Room Air 04/22/23 10:34 Course Orders Ordered: Discontinued Medications Erythromycin (Erythromycin Ophth 1 Gm Oint) 1 applic EYE-RIGHT NOW ONE Stop: 04/22/23 12:04 Fluorescein Sodium (Fluorescein 1 Mg Strip) 1 mg EYE-RIGHT NOW ONE Stop: 04/22/23 10:28 Last Admin: 04/22/23 10:40 Dose: 1 mg Documented By: ANAYA Proparacaine HCl (Proparacaine 0.5% Ophth Beth) 1 drops EYE-RIGHT NOW ONE Stop: 04/22/23 10:28 Last Admin: 04/22/23 10:40 Dose: 1 drop Documented By: ANAYA Consultations Consultation #1: discussed with Dr. Guidry ([phone]) who Recommends removal of external silk suture, assuming this is likely the culprit. There are numerous buried internal sutures that would likely be very difficult to address. No need for ongoing bandage, would recommend erythromycin ointment 4 times daily, follow-up as previously planned or sooner if patient continues to be asymptomatic. Vital Signs Vital signs: Vital Signs - 8 hr 04/22/23 10:34 Pulse Rate 78 Respiratory Rate 18 Blood Pressure 193/85 H Pulse Oximetry 99 Oxygen Delivery Method Room Air Medical Decision Making MDM Narrative Medical decision making narrative: [87] year old patient presents with Right eye irritation after procedure Multiple etiologies for patient's symptoms considered including, but not limited to: [ external suture versus internal suture versus abrasion versus infectious process versus other] Prior Charts reviewed in our EMR Primary Historian: patient Consultations: Discussed with patient's security professionals, see details above Single external suture easily removed and symptoms promptly resolved. No ongoing pain. EOMs in tact. Vision in tact. Patient's symptoms improved over duration of stay with above-stated therapies. Findings and discharge diagnosis discussed with patient/family followed by verbalization of understanding Return precautions discussed with patient/family whom verbalize understanding of diagnosis and plan Discharge Plan Departure Patient Disposition: Home Clinical Impression: Other acute postprocedural pain Activity Restrictions/Additional Instructions: *You have been diagnosed with [ postprocedural discomfort likely from external suture] *What to do: *Please continue to take your regular medications as directed. [x ] Erythromycin ointment. Please apply a small ribbon of ointment in your right eye every 6 hours while awake until your follow up *Please follow up with Dr. Guidry as previously planned. *Return to Emergency Department if you should have any new, worsening or concerning symptoms, such as [fever greater than 101 F, shaking chills, worsening pain, persistent vomiting or other bothersome symptoms] Prescriptions: No Action (DME) Disabled Parking See Rx Instructions .ROUTE .MEDSUPPLY Qty: 1 0RF Rx Instructions: Patient qualifies for disabled parking as per the attached form. gabapentin 400 mg capsule See Rx Instructions PO .COMPLEX Qty: 270 3RF Rx Instructions: 1 capsule PO in AM, 2 caps in PM. pravastatin 40 mg tablet 40 mg PO BEDTIME Qty: 90 3RF losartan 100 mg tablet 100 mg PO DAILY Eliquis 5 mg tablet 2.5 mg PO BID metoprolol succinate 25 mg Tablet Extended Release 24 Hr 25 mg PO DAILY acetaminophen [Tylenol] 325 mg capsule 325 mg PO DAILY PRN (Reason: Pain) Referrals: Dalton Proctor MD [Primary Care Provider] - Stand Alone Forms: Patient Portal/API
[2023-04-22 10:34] VITALS: BP 193/85; PULSE 78; RESP 18; O2SAT 99; BMI 25.1
[2023-04-22] MEDS: FLUORESCEIN 1 MG STRIP EYE-RIGHT (10:40)
[2023-04-22] MEDS: PROPARACAINE 0.5% OPHTH SOL 1 DROPS EYE-RIGHT (10:40)
[2023-04-22 12:14] VITALS: BP 190/88; PULSE 64; RESP 16; O2SAT 100
[2023-04-22] MEDS: ERYTHROMYCIN OPHTH 1 GM OINT 1 APPLIC EYE-RIGHT (12:15)
== END 2023-04-22 12:25 | disposition home or self-care (01) ==
PROVIDERS: Emergency Provider Emergency Medicine; Family Provider Internal Medicine; PCP Internal Medicine
DX: G89.18 Other acute postprocedural pain (principal)
CPT/HCPCS: 99282

== ENCOUNTER → 2023-07-13 08:17 | Outpatient (CLI) | payer MEDICARE, OTHER, SELFPAY ==
[2022-01-18 15:17] VITALS: BMI 25.8
[2023-07-13 09:26] LABS: Cholesterol 173 mg/dL (140-199); HDL Cholesterol 41 mg/dL (40-60); LDL Cholesterol Calculated 103 mg/dL (<100); Triglycerides 145 mg/dL (35-150)
== END ==
PROVIDERS: Family Provider Internal Medicine; PCP Internal Medicine; Referring Provider Internal Medicine Interventional Cardiology; Visit Provider Internal Medicine Interventional Cardiology
DX: I25.10 Atherosclerotic heart disease of native coronary artery without angina pectoris (principal); Z95.5 Presence of coronary angioplasty implant and graft
CPT/HCPCS: 36415; 80061

== ENCOUNTER → 2023-08-22 12:26 | Outpatient (CLI) | payer MEDICARE, OTHER, SELFPAY ==
[2022-01-18 15:17] VITALS: BMI 25.8
--- NOTE | 2023-08-22 12:29 | DI.ECHO.S_ITS ---
[facility] +---------+ : : [address] : : : : [id number] : : : : Phone: [phone]+ Echocardiogram Report + + :Name: RENUKA ARREDONDO Study Date: 08/22/2023 Height: 69 in : :[facility] ReadingLocation: Weight: 175 lb : : Gender: Male BSA: 2.0 m2 : :: 1935 Age: 88 yrs BP: 156/90 mmHg: :Reason For Study: THORACIC AORTIC ECTASIA : :Ordering Physician: IOANA, : :KEMI Performed By: Rosi Christine : :Referring: DARWIN CARCAMO : + + Interpretation Summary The left ventricle is normal in size. The left ventricular ejection fraction is normal. The ejection fraction is estimated to be 60-65%. He recently LVEF about 55 to 60%. The right ventricle is normal in size and function.There is a pacemaker lead in the right ventricle. Mild MR, mild AI, mild TR without any significant change from the previous study. The ascending aorta is moderately enlarged. 4.4 cm in diameter. Previously 4.5 cm. The IVC is of normal diameter and collapses greater than 50% with a sniff. This suggests a low right atrial pressure of 3 mm Hg. Procedure: A two-dimensional transthoracic echocardiogram with color flow and Doppler was performed. The study quality was technically adequate. Comparison is made with the echocardiogram of 10/20/2021. The patient had occasional PVCs during the exam. The patient was in sinus rhythm with heart rates between 60-70 bpm during the exam. Left Ventricle: The left ventricle is normal in size. Proximal septal thickening is noted. There is no echo evidence for significant left ventricular outflow tract obstruction. There is no thrombus. The ejection fraction is estimated to be 60-65%. The left ventricular ejection fraction is normal. There are no focal wall motion abnormalities. Diastolic parameters suggest a relaxation abnormality of the left ventricle, consistent with probable normal filling pressures. Right Ventricle: The right ventricle is normal in size and function. There is a pacemaker lead in the right ventricle. The right ventricular systolic function is normal. Atria: The left atrial size is normal. There has been no significant change since the previous study. Right atrial size is normal. There is no Doppler evidence for an interatrial shunt. Mitral Valve: The mitral valve leaflets are mildly calcified. There is mild mitral annular calcification. There is mild mitral regurgitation. Compared to the prior echo study, there has been no change in the severity of mitral regurgitation. Aortic Valve: The aortic valve is trileaflet. The aortic valve opens well. The aortic valve is mildly calcified. There is discrete nodular thickening of the right coronary cusp. There is no aortic valve stenosis. There is mild aortic regurgitation. Compared to the prior echo study, there has been no change in the severity of aortic regurgitation. Tricuspid Valve: The tricuspid valve is normal in structure and function. The right ventricular systolic pressure is estimated to be at least 27 mmHg based on an estimated right atrial pressure of 3 mm Hg. There is mild tricuspid regurgitation. Pulmonic Valve: The pulmonic valve is not well seen, but is grossly normal. There is mild pulmonic regurgitation. Great Vessels: The aortic root is mildly dilated. The ascending aorta is moderately enlarged. Aortic arch was not well-visualized. The IVC is of normal diameter and collapses greater than 50% with a sniff. This suggests a low right atrial pressure of 3 mm Hg. Pericardium/ Pleura There is no pericardial effusion. There is no pleural effusion. MMode/2D Measurements & Calculations LVIDd: 4.2 cm LVOT diam: 2.4 cm LVIDs: 3.1 cm Ao root diam: 4.1 cm FS: 26.8 % asc Aorta Diam: 4.4 cm IVSd: 1.0 cm LVPWd: 1.1 cm LV martino. diameter/BSA (cm/m^2): 2.2 LV sys. diameter/BSA (cm/m^2): 1.6 LA A2 area: 15.9 cm2 RA long axis: 4.6 cm LA A4 area: 11.0 cm2 RA area: 13.0 cm2 LA length (vol): 4.6 cm RA vol: 31.3 ml LA vol: 32.1 ml RA : 16.0 ml/m2 LA vol index: 16.4 ml/m2 IVC diam: 1.8 cm RVD1 (basal): 3.5 cm TAPSE: 1.7 cm Doppler Measurements & Calculations Ao V2 max: 135.5 cm/sec LVOT Max Dean: 105.4 cm/sec Ao V2 mean: 93.0 cm/sec LV V1 max P.4 mmHg Ao max P.3 mmHg LV V1 VTI: 21.7 cm Ao mean P.9 mmHg BRIDGETTE(I,D): 3.1 cm2 Ao V2 VTI: 31.5 cm BRIDGETTE(V,D): 3.5 cm2 sev ratio: 0.69 BRIDGETTE indexed to BSA (cm^2/m^2): 1.6 AI P1/2t: 743.3 msec AI dec slope: 161.3 cm/sec2 MV E max dean: 60.2 cm/sec TR max dean: 246.2 cm/sec MV A max dean: 87.5 cm/sec TR max P.2 mmHg MV E/A: 0.69 PA V2 max: 64.6 cm/sec Med Peak E' Dean: 6.7 cm/sec PA V2 mean: 50.2 cm/sec E/E' med: 9.0 PA mean P.1 mmHg Lat Peak E' Dean: 6.0 cm/sec PA pr(Accel): 31.0 mmHg E/E' lat: 10.1 E/e' average: 9.5 MV dec time: 0.17 sec SV(LVOT): 97.9 ml Reading Physician:04:02 PM
== END ==
PROVIDERS: Family Provider Internal Medicine; PCP Internal Medicine; Referring Provider Nurse Practitioner Acute Care; Visit Provider Nurse Practitioner Acute Care
DX: I08.3 Combined rheumatic disorders of mitral, aortic and tricuspid valves (principal); I77.810 Thoracic aortic ectasia; I77.89 Other specified disorders of arteries and arterioles; Z95.0 Presence of cardiac pacemaker
CPT/HCPCS: 93306

== ENCOUNTER → 2023-11-16 16:25 | Outpatient (CLI) | payer MEDICARE, OTHER, SELFPAY ==
[2022-01-18 15:17] VITALS: BMI 25.8
[2023-11-16 18:13] LABS: Alanine Aminotransferase 28 IU/L (<50); Albumin 4.5 g/dL (3.5-5.0); Albumin Globulin Ratio 1.4 (1.0-2.8); Alkaline Phosphatase 77 U/L (38-126); Aspartate Aminotransferase 32 IU/L (17-59); BUN Creatinine Ratio 39.7 (6-22); Bilirubin Total 0.5 mg/dL (0.2-1.3); Blood Urea Nitrogen 29 mg/dL (9-20); C-Reactive Protein Quant < 0.5 mg/dL (<1.0); Calcium 9.3 mg/dL (8.4-10.2); Carbon Dioxide 30 mmol/L (22-32); Chloride 105 mmol/L (98-107); Creatine Kinase 115 U/L (55-170); Estimated Glomerular Filt Rate > 60 mL/min (>60); Globulin 3.2 g/dL (1.7-4.1); Glucose 87 mg/dL (80-110); HEMOLYSIS < 15 (0-50); Potassium 4.5 mmol/L (3.4-5.1); Sodium 138 mmol/L (137-145); Total Protein 7.7 g/dL (6.3-8.2)
[2023-11-16 18:22] LABS: Erythrocyte Sedimentation Rate 14 MM/HR (0-15)
[2023-11-16 18:24] LABS: Add Manual Diff / Slide Review NO; Basophils Absolute Auto 0 /uL (0-100); Basophils Percent Auto 0.3 % (0-2); Eosinophils Absolute Auto 100 /uL (0-450); Eosinophils Percent Auto 1.6 % (2-4); Hematocrit 42.3 % (41-53); Hemoglobin 14.2 g/dL (13.5-17.5); Lymphocytes Absolute Auto 1600 /uL (1100-4500); Lymphocytes Percent Auto 22.7 % (25-40); Mean Corpuscular HGB Conc 33.5 % (30-36); Mean Corpuscular Hemoglobin 33.1 PG (26-34); Mean Corpuscular Volume 98.7 fL (80-100); Monocytes Absolute Auto 600 /uL (0-900); Neutrophils Absolute Auto 4600 /uL (1500-7000); Neutrophils Percent Auto 66.4 % (50-75); Platelet Count 179 X10^3/uL (150-400); Red Blood Cell Count 4.28 X10^6/uL (4.5-5.9); Red Cell Distribution Width 13.8 % (11.6-14.8)
[2023-11-16 18:41] LABS: TSH w/ Reflex to FT4 1.32 uIU/mL (0.47-4.68)
== END ==
PROVIDERS: Family Provider Internal Medicine; PCP Internal Medicine; Referring Provider Internal Medicine; Visit Provider Internal Medicine
DX: R53.1 Weakness (principal); D64.9 Anemia, unspecified; M79.10 Myalgia, unspecified site
CPT/HCPCS: 36415; 80053; 82550; 84443; 85025; 85651; 86140

== ENCOUNTER → 2023-11-20 12:37 | Outpatient (CLI) | payer MEDICARE, OTHER, SELFPAY ==
[2022-01-18 15:17] VITALS: BMI 25.8
--- NOTE | 2023-11-20 12:39 | DI.CT.S_ITS ---
PROCEDURE: CT LUMBAR SPINE WO CON INDICATIONS: leg weakness TECHNIQUE: Noncontrast 3 mm thick sections acquired from the T12 level to the sacrum. Sagittal and coronal reformats were constructed. For radiation dose reduction, the following was used: automated exposure control. COMPARISON: [facility], CT, CT LUMBAR SPINE WO CON, 03/06/2023, 14:32. FINDINGS: Prior surgery: Posterior fusion instrumentation with interbody spacer at L3 to L5. No hardware complication. Left laminotomy at L3-4, L4-5. The left transpedicular screw slightly extends to the L2-3 intervertebral disc space, grossly unchanged. Moderate levoscoliosis of the lumbar spine, centered at L3-4. Mild retrolisthesis of L1 on L2. Vertebral body height of the lumbar spine is well maintained. Multilevel, moderate degenerative disease of the lumbar spine. Right neural foraminal stenosis: Moderate at L1-2 and L2-3. Moderate at L3-4, L4-5, and severe at L5-S1. Left neural foraminal stenosis: Severe at L1-2, moderate at L4-5 and mild at L5-S1. Central canal stenosis: Mild at L1-2, moderate L2-3 Other soft tissue findings: Scattered calcification within the pancreas, likely representing sequela of prior pancreatitis. Bilateral renal cysts. Moderate calcification of the abdominal aorta. No abdominal aortic aneurysm. Sigmoid colon diverticulosis compression visualized. Visualized sacrum is intact. IMPRESSION: 1. Posterior fusion instrumentation with interbody spacer , and the left laminotomy at L3-L5. The left transpedicular screw extends to the L2-3 intervertebral disc space, grossly unchanged. 2. Multilevel degenerative change of the lumbar spine, most pronounced at L2-3, there is moderate central canal stenosis and moderate right neural foraminal stenosis, grossly unchanged from prior exam Dictated by: Elvia Jolley M.D. on 11/20/2023 at 15:21 Approved by: Elvia Jolley M.D. on 11/20/2023 at 15:33
== END ==
PROVIDERS: Family Provider Internal Medicine; PCP Internal Medicine; Referring Provider Internal Medicine; Visit Provider Internal Medicine
DX: M96.1 Postlaminectomy syndrome, not elsewhere classified (principal); M43.16 Spondylolisthesis, lumbar region; M47.816 Spondylosis without myelopathy or radiculopathy, lumbar region; M48.061 Spinal stenosis, lumbar region without neurogenic claudication; S43.109A Unspecified dislocation of unspecified acromioclavicular joint, initial encounter; Z98.1 Arthrodesis status
CPT/HCPCS: 72131

== ENCOUNTER 2023-11-21 11:15 | Outpatient (RCR) | payer MEDICARE, OTHER, SELFPAY ==
[2022-01-18 15:17] VITALS: BMI 25.8
--- NOTE | 2023-09-11 17:51 | PT.OIE ---
Current Diagnoses Foot drop, left foot (09/11/23) Unsteadiness on feet (09/11/23) Repeated falls (09/11/23) Weakness (09/11/23) Chronic fatigue, unspecified (09/11/23) Past Medical History (Last Reviewed 04/22/23 @ 12:09 by Erik Montilla DO) Acromioclavicular joint separation, type 2 CAD (coronary artery disease) (~2007) Cervical stenosis of spinal canal Chronic back pain Colon polyps (~2010) COVID-19 (~12/2021) CVA (cerebral vascular accident) (2016) Facet arthropathy, lumbar Foraminal stenosis of lumbosacral region Gait instability H/O: stroke (04/10/16) Hyperlipidemia Hypertension (~2016) Lumbar post-laminectomy syndrome Lumbosacral spondylosis Measles Mumps Neuropathy Osteoarthritis PAD (peripheral artery disease) Peripheral neuropathy (~1979) Peripheral vascular disease Rotator cuff impingement syndrome of right shoulder Sick sinus syndrome Skin cancer Spinal stenosis Spinal stenosis of lumbar region without neurogenic claudication Spondylolisthesis at L4-L5 level Squamous cell skin cancer (~2015) Syncope Vertigo (~2013) Vision disorder Past Surgical History (Last Reviewed 04/22/23 @ 12:09 by Erik Montilla DO) History of lumbar laminectomy (1988) History of lumbar laminectomy (1952) History of surgery (2007) History of surgery (1952) History of vasectomy Hx of bilateral cataract extraction 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) Visit Care Team Role Provider Type Dalton Proctor MD Attending Provider Physician Family Provider Primary Care Provider Referring Provider Specialty: Internal Medicine Address: [address] [place] [address], [address], [facility] Email: [email or web address] Physical Therapy Initial Evaluation PT-OP-A Visit Information Start: 09/11/23 14:15 Freq: Status: Active Protocol: Document 09/11/23 12:00 DCW (Rec: 09/11/23 14:27 DCW [id number]) Out-Patient Physical Therapy Visit Information Visit Information Visit Type Initial Evaluation Visit Start Time 12:00 Visit Stop Time 12:40 Visit Number 1 Number of GAME MASTER Visits 0 Evaluation Information Evaluation Date 09/11/23 PT-OP-B Current Condition Start: 09/11/23 14:15 Freq: Status: Active Protocol: Document 09/11/23 12:00 DCW (Rec: 09/11/23 14:27 DCW [id number]) Current Condition History of Current Condition Onset Date Long-standing history Current Complaints Weakness, declining balance, falls, unsteadiness History of Current Condition Pt is an 88 year old male well known to this clinic presenting with complaints of a fairly severe recent decline in balance, LE strength, and functional mobility. Pt was previously seen at this facility, most recently discharged in 09/2022, for these same complaints. Was discharged at that time due to a plateau in progress, but has declined precipitously since then. Currently uses a manual wheelchair for community mobility, has a FWW and 4WW for home use (on different floors to eliminate need to carry walker up/down stairs). Admits he performs minimal walking on a day to day basis, and can't walk at all without a walker. Has fairly strong fear of falling at this point, admits that is falls typically occur during transition movements/transfers trying to use walker to turn and sit. Does have a known left foot drop, which has been an ongoing issue following back surgery. Treatment Goals Patient/Caregiver Goals I want to get up and move around with my cane and not rely on a walker, but maybe that's unrealistic at this point. PT-OP-C Subjective Start: 09/11/23 14:15 Freq: Status: Active Protocol: Document 09/11/23 12:00 DCW (Rec: 09/11/23 14:27 DCW [id number]) OP-PT Subjective Patient Comments Patient Comments Pt admits to fairly severe functional decline since previous PT discharge Patient Reported Progress Worse Patient Questionnaires ABC- Activity Specific Balance Confidence Scale ABC Score 16.25% Other Questionnaire Name and Score Falls Efficacy Scale- International: 44/64 PT-OP-E Functional Tests Start: 09/11/23 14:15 Freq: Status: Active Protocol: Document 09/11/23 12:00 DCW (Rec: 09/11/23 14:29 DCW [id number]) Functional Tests 30 Second Sit to Stand Test Score x5 repetitions Comments Use of UEs, Back on LEs on table, uncontrolled descent Timed Up and Go (TUG) Score 24.50 with 4WW Comments Three-trial average (25.65, 24 .20, 23.66) PT-OP-G Mobility & Gait Start: 09/11/23 14:15 Freq: Status: Active Protocol: Document 09/11/23 12:00 DCW (Rec: 09/11/23 17:51 DCW [id number]) OP Mobility Evaluation Wheelchair Management Type of Wheelchair Manual Assessment Details Propels with B LEs, B UEs OP Gait Assessment Gait Gait Assistance Required: Contact Guard Assist Assistive Devices Assistive Device Gait Belt,4 Wheeled Walker Comments Gait Comments Decreased stride length, left steppage gait secondary to left foot drop. Poor activity tolerance PT-OP-M Strength Start: 09/11/23 14:15 Freq: Status: Active Protocol: Document 09/11/23 12:00 DCW (Rec: 09/11/23 17:51 DCW [id number]) Hip Strength Hip Manual Muscle Testing Right Flexion (L2) 4- Good- Extension (S1) 4 Good Abduction 4 Good Adduction 4 Good External Rotation 4 Good Internal Rotation 4 Good Left Flexion (L2) 3 Fair Extension (S1) 3 Fair Abduction 4- Good- Adduction 4- Good- External Rotation 3+ Fair+ Internal Rotation 4- Good- Knee Strength Knee Manual Muscle Testing Right Flexion (S2) 4- Good- Extension (L3) 4+ Good+ Left Flexion (S2) 3+ Fair+ Extension (L3) 4 Good Ankle/Foot Strength Ankle and Foot Manual Muscle Testing Right Dorsiflexion (L4) 3 Fair Left Dorsiflexion (L4) 1 Trace PT-OP-T Assessment and Plan Start: 09/11/23 14:15 Freq: Status: Active Protocol: Document 09/11/23 12:00 DCW (Rec: 09/11/23 17:51 DCW [id number]) Physical Therapy Assessment Rehab Potential Rehabilitation Potential Poor Evaluation Complexity Number of Personal Factors/Comorbidities 3 or More Number of Body Systems Impaired 4 or More Clinical Presentation at Evaluation Unstable Impairments Impairments Activity Tolerance,Balance, Functional Activities, Functional Mobility,Gait,ROM, Soft Tissue Mobility,Strength, Tone,Transfers Goals Three Impairment Pt performs 5 repetitions during 30sStS Research Scholar Goal (LTG) Pt to increase score on 30sStS by at least three to 8 repetitions with a controlled descent in order to demonstrate an improved tolerance to activity. LTG Duration 12/10/23 One Impairment Pt does not have an appropriate home exercise program Short Term Goal (STG) Pt to be independent and compliant with an appropriate HEP STG Duration 10/10/23 Two Impairment Pt TUG score of 24.5 using 4WW Mcc Goal (LTG) Pt to demonstrate decreased TUG score by at least nine and a half seconds for a score of 15 using LRAD to demonstrate improve gait ability and decreased falls risk LTG Duration 12/10/23 Assessment Summary Assessment Pt presents with signs and symptoms consistent with referring diagnosis. Pt exhibits significant decline in function since last PT session 11 months ago, mainly with LE strength. Additionally , TUG score has declined by three seconds, and pt has significantly less activity tolerance, relying on a w/c for most mobility, which was previously entirely use of 4WW . Fear of falling and fatigue limits pt's participation in most daily activities, which may be a fairly significant limiting factor going forward. Pt may benefit from skilled therapy focusing on gait, balance, LE strength, and activity tolerance, however pt did have minimal benefit from prior attempts at PT. Is currently starting from a more deconditioned point, so could show some progress in getting to prior level of function. Physical Therapy Plan Frequency and Duration Frequency of Treatment 2x/Week Plan of Care Start Date 09/11/23 Plan of Care End Date 12/10/23 Therapeutic Interventions Therapeutic Interventions Balance Training,Gait Training ,Home Exercise Program,Joint Mobilizations,Manual Therapy, Neuromuscular Re-education, Patient/Caregiver Education, Self-Care/Home Management,Soft Tissue Mobilization, Therapeutic Activities, Therapeutic Exercises, Wheelchair Management Next Visit Focus/Plan Next Note Type Treatment Note Next Visit Plan LE strengthening, activity tolerance, balance
--- NOTE | 2023-09-11 17:53 | PT.OPPOC ---
Physical, Occupational & Speech Therapy At [facility] Current Diagnoses Foot drop, left foot (09/11/23) Unsteadiness on feet (09/11/23) Repeated falls (09/11/23) Weakness (09/11/23) Chronic fatigue, unspecified (09/11/23) Visit Care Team Role Provider Type Dalton Proctor MD Attending Provider Physician Family Provider Primary Care Provider Referring Provider Specialty: Internal Medicine Address: [address] [place] [address], [address], [facility] Email: [email or web address] Plan Of Care PT-OP-T Assessment and Plan Start: 09/11/23 14:15 Freq: Status: Active Protocol: Document 09/11/23 12:00 DCW (Rec: 09/11/23 17:51 DCW [id number]) Physical Therapy Assessment Rehab Potential Rehabilitation Potential Poor Evaluation Complexity Number of Personal Factors/Comorbidities 3 or More Number of Body Systems Impaired 4 or More Clinical Presentation at Evaluation Unstable Impairments Impairments Activity Tolerance,Balance, Functional Activities, Functional Mobility,Gait,ROM, Soft Tissue Mobility,Strength, Tone,Transfers Goals Three Impairment Pt performs 5 repetitions during 30sStS Residential Goal (LTG) Pt to increase score on 30sStS by at least three to 8 repetitions with a controlled descent in order to demonstrate an improved tolerance to activity. LTG Duration 12/10/23 One Impairment Pt does not have an appropriate home exercise program Short Term Goal (STG) Pt to be independent and compliant with an appropriate HEP STG Duration 10/10/23 Two Impairment Pt TUG score of 24.5 using 4WW Residential Goal (LTG) Pt to demonstrate decreased TUG score by at least nine and a half seconds for a score of 15 using LRAD to demonstrate improve gait ability and decreased falls risk LTG Duration 12/10/23 Assessment Summary Assessment Pt presents with signs and symptoms consistent with referring diagnosis. Pt exhibits significant decline in function since last PT session 11 months ago, mainly with LE strength. Additionally , TUG score has declined by three seconds, and pt has significantly less activity tolerance, relying on a w/c for most mobility, which was previously entirely use of 4WW . Fear of falling and fatigue limits pt's participation in most daily activities, which may be a fairly significant limiting factor going forward. Pt may benefit from skilled therapy focusing on gait, balance, LE strength, and activity tolerance, however pt did have minimal benefit from prior attempts at PT. Is currently starting from a more deconditioned point, so could show some progress in getting to prior level of function. Physical Therapy Plan Frequency and Duration Frequency of Treatment 2x/Week Plan of Care Start Date 09/11/23 Plan of Care End Date 12/10/23 Therapeutic Interventions Therapeutic Interventions Balance Training,Gait Training ,Home Exercise Program,Joint Mobilizations,Manual Therapy, Neuromuscular Re-education, Patient/Caregiver Education, Self-Care/Home Management,Soft Tissue Mobilization, Therapeutic Activities, Therapeutic Exercises, Wheelchair Management Next Visit Focus/Plan Next Note Type Treatment Note Next Visit Plan LE strengthening, activity tolerance, balance Plan of Care Dates Plan of Care Start Date 09/11/23 Plan of Care End Date 12/10/23 Electronically Signed by: Eligio Trent, PT 09/11/23 3837 If you are in agreement with this Plan of Care, please return a signed and dated copy. I have reviewed this Plan of Care and certify that the skilled therapy services above are required to meet the patient?s needs. Physician Signature Date Printed Name and Credentials Clinical Instructor Signature Printed Name and Credentials
--- NOTE | 2023-09-14 12:48 | PT.OTN ---
Current Diagnoses Foot drop, left foot (09/14/23) Unsteadiness on feet (09/14/23) Repeated falls (09/14/23) Weakness (09/14/23) Chronic fatigue, unspecified (09/14/23) Physical Therapy Treatment Note PT-OP-A Visit Information Start: 09/11/23 14:15 Freq: Status: Active Protocol: Document 09/14/23 12:00 DCW (Rec: 09/14/23 12:48 DCW [id number]) Out-Patient Physical Therapy Visit Information Visit Information Visit Type Treatment Note Visit Start Time 12:00 Visit Stop Time 12:40 Visit Number 2 Number of BUSINESS APPLICATIONS MANAGER Visits 0 Evaluation Information Evaluation Date 09/11/23 PT-OP-B Current Condition Start: 09/11/23 14:15 Freq: Status: Active Protocol: Document 09/11/23 12:00 DCW (Rec: 09/11/23 14:27 DCW [id number]) Current Condition History of Current Condition Onset Date Long-standing history Current Complaints Weakness, declining balance, falls, unsteadiness History of Current Condition Pt is an 88 year old male well known to this clinic presenting with complaints of a fairly severe recent decline in balance, LE strength, and functional mobility. Pt was previously seen at this facility, most recently discharged in 09/2022, for these same complaints. Was discharged at that time due to a plateau in progress, but has declined precipitously since then. Currently uses a manual wheelchair for community mobility, has a FWW and 4WW for home use (on different floors to eliminate need to carry walker up/down stairs). Admits he performs minimal walking on a day to day basis, and can't walk at all without a walker. Has fairly strong fear of falling at this point, admits that is falls typically occur during transition movements/transfers trying to use walker to turn and sit. Does have a known left foot drop, which has been an ongoing issue following back surgery. Treatment Goals Patient/Caregiver Goals I want to get up and move around with my cane and not rely on a walker, but maybe that's unrealistic at this point. PT-OP-C Subjective Start: 09/11/23 14:15 Freq: Status: Active Protocol: Document 09/14/23 12:00 DCW (Rec: 09/14/23 12:48 DCW [id number]) OP-PT Subjective Patient Comments Patient Comments Pt notes he has a second floor to his house, ~one year ago had a chair lift installed, and uses that to ascend/ descend the stairs at all times. PT-OP-E Functional Tests Start: 09/11/23 14:15 Freq: Status: Active Protocol: Document 09/11/23 12:00 DCW (Rec: 09/11/23 14:29 DCW [id number]) Functional Tests 30 Second Sit to Stand Test Score x5 repetitions Comments Use of UEs, Back on LEs on table, uncontrolled descent Timed Up and Go (TUG) Score 24.50 with 4WW Comments Three-trial average (25.65, 24 .20, 23.66) PT-OP-G Mobility & Gait Start: 09/11/23 14:15 Freq: Status: Active Protocol: Document 09/11/23 12:00 DCW (Rec: 09/11/23 17:51 DCW [id number]) OP Mobility Evaluation Wheelchair Management Type of Wheelchair Manual Assessment Details Propels with B LEs, B UEs OP Gait Assessment Gait Gait Assistance Required: Contact Guard Assist Assistive Devices Assistive Device Gait Belt,4 Wheeled Walker Comments Gait Comments Decreased stride length, left steppage gait secondary to left foot drop. Poor activity tolerance PT-OP-M Strength Start: 09/11/23 14:15 Freq: Status: Active Protocol: Document 09/11/23 12:00 DCW (Rec: 09/11/23 17:51 DCW [id number]) Hip Strength Hip Manual Muscle Testing Right Flexion (L2) 4- Good- Extension (S1) 4 Good Abduction 4 Good Adduction 4 Good External Rotation 4 Good Internal Rotation 4 Good Left Flexion (L2) 3 Fair Extension (S1) 3 Fair Abduction 4- Good- Adduction 4- Good- External Rotation 3+ Fair+ Internal Rotation 4- Good- Knee Strength Knee Manual Muscle Testing Right Flexion (S2) 4- Good- Extension (L3) 4+ Good+ Left Flexion (S2) 3+ Fair+ Extension (L3) 4 Good Ankle/Foot Strength Ankle and Foot Manual Muscle Testing Right Dorsiflexion (L4) 3 Fair Left Dorsiflexion (L4) 1 Trace PT-OP-Q Treatments Start: 09/11/23 14:15 Freq: Status: Active Protocol: Document 09/14/23 12:00 DCW (Rec: 09/14/23 12:48 DCW [id number]) Cardio Equipment Recumbent Elliptical (Biodex) Duration (Minutes) 5 Resistance 5 Seat Position 9 Therapeutic Exercises Supine Exercises Bridging Supine Exercise Name Bridging SLR Supine Exercise Name SLR Side bilateral Reps/Minutes x10 Sidelying Exercises Hip Abduction Sidelying Exercise Name Hip Abduction Side bilateral Reverse Clamshell Sidelying Exercise Name Reverse Clamshell Side bilateral Clamshell Sidelying Exercise Name Clamshell Side bilateral Therapeutic Activity Therapeutic Activity Unassisted Standing Comments Attempted unassisted standing, pt required Min Ax1 to maintain balance/stability Sit Stand Name Sit to Stand Reps/Minutes x5 Comments VCs/TCs for positioning, sequencing PT-OP-T Assessment and Plan Start: 09/11/23 14:15 Freq: Status: Active Protocol: Document 09/14/23 12:00 DCW (Rec: 09/14/23 12:48 DCW [id number]) Physical Therapy Assessment Impairments Impairments Activity Tolerance,Balance, Functional Activities, Functional Mobility,Gait,ROM, Soft Tissue Mobility,Strength, Tone,Transfers Goals Three Impairment Pt performs 5 repetitions during 30sStS Logistics Officer Goal (LTG) Pt to increase score on 30sStS by at least three to 8 repetitions with a controlled descent in order to demonstrate an improved tolerance to activity. LTG Duration 12/10/23 One Impairment Pt does not have an appropriate home exercise program Short Term Goal (STG) Pt to be independent and compliant with an appropriate HEP STG Duration 10/10/23 Two Impairment Pt TUG score of 24.5 using 4WW Prison Goal (LTG) Pt to demonstrate decreased TUG score by at least nine and a half seconds for a score of 15 using LRAD to demonstrate improve gait ability and decreased falls risk LTG Duration 12/10/23 Assessment Summary Assessment Pt fairly significantly fatigued with bed exercises today. Did work some with technique for sit<->stand, pt showed improved ability to control descent, but still quite limited secondary to bilateral LE weakness. Physical Therapy Plan Frequency and Duration Frequency of Treatment 2x/Week Plan of Care Start Date 09/11/23 Plan of Care End Date 12/10/23 Therapeutic Interventions Therapeutic Interventions Balance Training,Gait Training ,Home Exercise Program,Joint Mobilizations,Manual Therapy, Neuromuscular Re-education, Patient/Caregiver Education, Self-Care/Home Management,Soft Tissue Mobilization, Therapeutic Activities, Therapeutic Exercises, Wheelchair Management Next Visit Focus/Plan Next Note Type Treatment Note Next Visit Plan LE strengthening, activity tolerance, balance
--- NOTE | 2023-09-19 11:13 | PT.OTN ---
Current Diagnoses Foot drop, left foot (09/19/23) Unsteadiness on feet (09/19/23) Repeated falls (09/19/23) Weakness (09/19/23) Chronic fatigue, unspecified (09/19/23) Physical Therapy Treatment Note PT-OP-A Visit Information Start: 09/11/23 14:15 Freq: Status: Active Protocol: Document 09/19/23 10:27 SP (Rec: 09/19/23 11:36 SP [id number]) Out-Patient Physical Therapy Visit Information Visit Information Visit Type Treatment Note Visit Start Time 10: Visit Stop Time 11:13 Visit Number 3 Number of ADMINISTRATIVE PROGRAM SPECIALIST Visits 1 Evaluation Information Evaluation Date 09/11/23 PT-OP-B Current Condition Start: 09/11/23 14:15 Freq: Status: Active Protocol: Document 09/11/23 12:00 DCW (Rec: 09/11/23 14:27 DCW [id number]) Current Condition History of Current Condition Onset Date Long-standing history Current Complaints Weakness, declining balance, falls, unsteadiness History of Current Condition Pt is an 88 year old male well known to this clinic presenting with complaints of a fairly severe recent decline in balance, LE strength, and functional mobility. Pt was previously seen at this facility, most recently discharged in 09/2022, for these same complaints. Was discharged at that time due to a plateau in progress, but has declined precipitously since then. Currently uses a manual wheelchair for community mobility, has a FWW and 4WW for home use (on different floors to eliminate need to carry walker up/down stairs). Admits he performs minimal walking on a day to day basis, and can't walk at all without a walker. Has fairly strong fear of falling at this point, admits that is falls typically occur during transition movements/transfers trying to use walker to turn and sit. Does have a known left foot drop, which has been an ongoing issue following back surgery. Treatment Goals Patient/Caregiver Goals I want to get up and move around with my cane and not rely on a walker, but maybe that's unrealistic at this point. PT-OP-C Subjective Start: 09/11/23 14:15 Freq: Status: Active Protocol: Document 09/19/23 10:27 SP (Rec: 09/19/23 11:36 SP [id number]) OP-PT Subjective Patient Comments Patient Comments Pt reports doing his exercises 2x/day. PT-OP-E Functional Tests Start: 09/11/23 14:15 Freq: Status: Active Protocol: Document 09/11/23 12:00 DCW (Rec: 09/11/23 14:29 DCW [id number]) Functional Tests 30 Second Sit to Stand Test Score x5 repetitions Comments Use of UEs, Back on LEs on table, uncontrolled descent Timed Up and Go (TUG) Score 24.50 with 4WW Comments Three-trial average (25.65, 24 .20, 23.66) PT-OP-G Mobility & Gait Start: 09/11/23 14:15 Freq: Status: Active Protocol: Document 09/11/23 12:00 DCW (Rec: 09/11/23 17:51 DCW [id number]) OP Mobility Evaluation Wheelchair Management Type of Wheelchair Manual Assessment Details Propels with B LEs, B UEs OP Gait Assessment Gait Gait Assistance Required: Contact Guard Assist Assistive Devices Assistive Device Gait Belt,4 Wheeled Walker Comments Gait Comments Decreased stride length, left steppage gait secondary to left foot drop. Poor activity tolerance PT-OP-M Strength Start: 09/11/23 14:15 Freq: Status: Active Protocol: Document 09/11/23 12:00 DCW (Rec: 09/11/23 17:51 DCW [id number]) Hip Strength Hip Manual Muscle Testing Right Flexion (L2) 4- Good- Extension (S1) 4 Good Abduction 4 Good Adduction 4 Good External Rotation 4 Good Internal Rotation 4 Good Left Flexion (L2) 3 Fair Extension (S1) 3 Fair Abduction 4- Good- Adduction 4- Good- External Rotation 3+ Fair+ Internal Rotation 4- Good- Knee Strength Knee Manual Muscle Testing Right Flexion (S2) 4- Good- Extension (L3) 4+ Good+ Left Flexion (S2) 3+ Fair+ Extension (L3) 4 Good Ankle/Foot Strength Ankle and Foot Manual Muscle Testing Right Dorsiflexion (L4) 3 Fair Left Dorsiflexion (L4) 1 Trace PT-OP-Q Treatments Start: 09/11/23 14:15 Freq: Status: Active Protocol: Document 09/19/23 10:27 SP (Rec: 09/19/23 11:36 SP [id number]) Cardio Equipment Recumbent Elliptical (Biodex) Duration (Minutes) 5 Resistance 5 Seat Position 9 Other BUE/ BLEs, 35-40 RPMs, Gym Equipment Shuttle Recovery Unilateral Squats Details B Resistance 25# (new band) Shuttle Recovery Platform Stable Reps/Time x15 Bilateral Squats Resistance 50# (both teal) Shuttle Recovery Platform Stable Reps/Time x12 Therapeutic Exercises Supine Exercises Bridging Supine Exercise Name Bridging Reps/Minutes x10 (performs 2x/day) Comments good form SLR Supine Exercise Name SLR Side bilateral Reps/Minutes x10 Comments cued no higher than opp LE. Sidelying Exercises Hip Abduction Sidelying Exercise Name Hip Abduction Side bilateral Reps/Minutes x10 Comments min assist to stay on side and maintain hip abd midline Reverse Clamshell Sidelying Exercise Name Reverse Clamshell- HEP reviewed Side bilateral Reps/Minutes x10 Comments good eccentric control Clamshell Sidelying Exercise Name Clamshell Side bilateral Reps/Minutes x10 Comments good eccentric control Sitting Exercises LAQ Sitting Exercise Name discussed perform as HEP, decline HO Side bilateral Resistance RLE 2# leg wt, LLE 1# leg wt Reps/Minutes x10 each Comments kick to therapist target hand for TKE- DF Sitting Exercise Name discussed perform as HEP, decline HO Side bilateral Resistance L AROM, R TB #2 Reps/Minutes 4, 8 reps L, 2x10 R Comments cued and demo follow- Therapeutic Activity Therapeutic Activity Stand Step Pivot Transfer Reps/Minutes multiple reps throughout tx Comments BUE use onto opposite surface & FWW. Pt tends to pivot to R. Trialed L but challenged with LLE foot clearance, states works better for him going R even though further to go. Sit Stand Name Sit to Stand Reps/Minutes x5 Comments VCs/TCs for positioning, push from chair come to stand and reach back slow descend sit. Gait Training Gait Activity FWW Device Used FWW, transport chair follow Distance/Duration 145 ft Treatment Focus taller posture, LLE foot clearance, eccentric DF PT-OP-T Assessment and Plan Start: 09/11/23 14:15 Freq: Status: Active Protocol: Document 09/19/23 10:27 SP (Rec: 09/19/23 11:36 SP [id number]) Physical Therapy Assessment Goals Three Impairment Pt performs 5 repetitions during 30sStS Alf Goal (LTG) Pt to increase score on 30sStS by at least three to 8 repetitions with a controlled descent in order to demonstrate an improved tolerance to activity. LTG Duration 12/10/23 One Impairment Pt does not have an appropriate home exercise program Short Term Goal (STG) Pt to be independent and compliant with an appropriate HEP STG Duration 10/10/23 Two Impairment Pt TUG score of 24.5 using 4WW Impairment A gait speed of less than 1.97 ft/sec is indicative of increased likelihood of further functional decline in older adults. Alf Goal (LTG) Pt to demonstrate decreased TUG score by at least nine and a half seconds for a score of 15 using LRAD to demonstrate improve gait ability and decreased falls risk LTG Duration 12/10/23 Assessment Summary Assessment Pt worked hard this tx, good feedback with progressing resistance to LE ther ex and standing mobility. He requires seated rests for recovery. Encouraged to continue LAQ, DF /toe raises and use of BLE support during mobility in light wt w/c to support DF and LE strengthening. Pt was challenged with hip abd today, requires MIn A for maintaining alignment, discussed limiting this to PT. Pt only requires CGA during SPT w/c<> table/shuttle press, better RLE foot clearance pivoting to R more I. Physical Therapy Plan Frequency and Duration Frequency of Treatment 2x/Week Plan of Care Start Date 09/11/23 Plan of Care End Date 12/10/23 Therapeutic Interventions Therapeutic Interventions Balance Training,Gait Training ,Home Exercise Program,Joint Mobilizations,Manual Therapy, Neuromuscular Re-education, Patient/Caregiver Education, Self-Care/Home Management,Soft Tissue Mobilization, Therapeutic Activities, Therapeutic Exercises, Wheelchair Management Next Visit Focus/Plan Next Note Type Treatment Note Next Visit Plan Ask response to increased activity last tx. POC: LE strengthening, activity tolerance, balance
--- NOTE | 2023-09-21 13:29 | PT.OTN ---
Current Diagnoses Foot drop, left foot (09/21/23) Unsteadiness on feet (09/21/23) Repeated falls (09/21/23) Weakness (09/21/23) Chronic fatigue, unspecified (09/21/23) Physical Therapy Treatment Note PT-OP-A Visit Information Start: 09/11/23 14:15 Freq: Status: Active Protocol: Document 09/21/23 13:49 SP (Rec: 09/21/23 14:32 SP [id number]) Out-Patient Physical Therapy Visit Information Visit Information Visit Type Treatment Note Visit Start Time 13:49 Visit Stop Time 13:29 Visit Number 4 Number of SALES PERFORMANCE ANALYST Visits 2 Evaluation Information Evaluation Date 09/11/23 PT-OP-B Current Condition Start: 09/11/23 14:15 Freq: Status: Active Protocol: Document 09/11/23 12:00 DCW (Rec: 09/11/23 14:27 DCW [id number]) Current Condition History of Current Condition Onset Date Long-standing history Current Complaints Weakness, declining balance, falls, unsteadiness History of Current Condition Pt is an 88 year old male well known to this clinic presenting with complaints of a fairly severe recent decline in balance, LE strength, and functional mobility. Pt was previously seen at this facility, most recently discharged in 09/2022, for these same complaints. Was discharged at that time due to a plateau in progress, but has declined precipitously since then. Currently uses a manual wheelchair for community mobility, has a FWW and 4WW for home use (on different floors to eliminate need to carry walker up/down stairs). Admits he performs minimal walking on a day to day basis, and can't walk at all without a walker. Has fairly strong fear of falling at this point, admits that is falls typically occur during transition movements/transfers trying to use walker to turn and sit. Does have a known left foot drop, which has been an ongoing issue following back surgery. Treatment Goals Patient/Caregiver Goals I want to get up and move around with my cane and not rely on a walker, but maybe that's unrealistic at this point. PT-OP-C Subjective Start: 09/11/23 14:15 Freq: Status: Active Protocol: Document 09/21/23 13:49 SP (Rec: 09/21/23 14:32 SP [id number]) OP-PT Subjective Patient Comments Patient Comments Pt reports has been having L shld pain and PT is looking into referral. Has had pain reclined in dental chair and wants to have peridontal work but can't tolerate. Thinks want to limit LUE WB on FWW so can recover so hoping can accomodate this in PT. PT-OP-E Functional Tests Start: 09/11/23 14:15 Freq: Status: Active Protocol: Document 09/11/23 12:00 DCW (Rec: 09/11/23 14:29 DCW [id number]) Functional Tests 30 Second Sit to Stand Test Score x5 repetitions Comments Use of UEs, Back on LEs on table, uncontrolled descent Timed Up and Go (TUG) Score 24.50 with 4WW Comments Three-trial average (25.65, 24 .20, 23.66) PT-OP-G Mobility & Gait Start: 09/11/23 14:15 Freq: Status: Active Protocol: Document 09/11/23 12:00 DCW (Rec: 09/11/23 17:51 DCW [id number]) OP Mobility Evaluation Wheelchair Management Type of Wheelchair Manual Assessment Details Propels with B LEs, B UEs OP Gait Assessment Gait Gait Assistance Required: Contact Guard Assist Assistive Devices Assistive Device Gait Belt,4 Wheeled Walker Comments Gait Comments Decreased stride length, left steppage gait secondary to left foot drop. Poor activity tolerance PT-OP-M Strength Start: 09/11/23 14:15 Freq: Status: Active Protocol: Document 09/11/23 12:00 DCW (Rec: 09/11/23 17:51 DCW [id number]) Hip Strength Hip Manual Muscle Testing Right Flexion (L2) 4- Good- Extension (S1) 4 Good Abduction 4 Good Adduction 4 Good External Rotation 4 Good Internal Rotation 4 Good Left Flexion (L2) 3 Fair Extension (S1) 3 Fair Abduction 4- Good- Adduction 4- Good- External Rotation 3+ Fair+ Internal Rotation 4- Good- Knee Strength Knee Manual Muscle Testing Right Flexion (S2) 4- Good- Extension (L3) 4+ Good+ Left Flexion (S2) 3+ Fair+ Extension (L3) 4 Good Ankle/Foot Strength Ankle and Foot Manual Muscle Testing Right Dorsiflexion (L4) 3 Fair Left Dorsiflexion (L4) 1 Trace PT-OP-Q Treatments Start: 09/11/23 14:15 Freq: Status: Active Protocol: Document 09/21/23 13:49 SP (Rec: 09/21/23 14:32 SP [id number]) Gym Equipment Shuttle Recovery Unilateral Squats Details B Resistance 25# (new band) Shuttle Recovery Platform Stable Reps/Time x15 Bilateral Squats Resistance 50# (both teal) Shuttle Recovery Platform Stable Reps/Time x12 Therapeutic Exercises Supine Exercises Bridging Supine Exercise Name Bridging Equipment Used wedge under upper back +pillow head vs 2 pillows under head Reps/Minutes 2 x10 Comments good form SLR Supine Exercise Name SLR Side bilateral Reps/Minutes x10 Comments cued no higher than opp LE. Sidelying Exercises Hip Abduction Sidelying Exercise Name Hip Abduction Side bilateral Reps/Minutes x10 Comments tactile cue maintain hip abd midline Standing Exercises side stepping Resistance AROM Equipment Used rail RUE support Reps/Minutes 15 ft x2 laps Comments cued tall posture, increase L knee flex/DF ft clearance Therapeutic Activity Therapeutic Activity Stand Step Pivot Transfer Reps/Minutes multiple reps throughout tx Comments BUE support R>L. Pt demonstrated pivot L with improved LLE foot clearance. Self-Care/Home Management Treatment Education Other Education Ed and instruction strategies of propping on wedge and pillows post upper trunk, shld and under BLEs for spinal PPT for comfort positioning decrease/eliminate anterior L shld stress/pain, awareness for ability to schedule/ have peridontal tx needed sooner appt. Good feedback response with postioning, painfree L shld. PT-OP-T Assessment and Plan Start: 09/11/23 14:15 Freq: Status: Active Protocol: Document 09/21/23 13:49 SP (Rec: 09/21/23 14:32 SP [id number]) Physical Therapy Assessment Goals Three Impairment Pt performs 5 repetitions during 30sStS Alf Goal (LTG) Pt to increase score on 30sStS by at least three to 8 repetitions with a controlled descent in order to demonstrate an improved tolerance to activity. LTG Duration 12/10/23 One Impairment Pt does not have an appropriate home exercise program Short Term Goal (STG) Pt to be independent and compliant with an appropriate HEP STG Duration 10/10/23 Two Impairment Pt TUG score of 24.5 using 4WW Impairment A gait speed of less than 1.97 ft/sec is indicative of increased likelihood of further functional decline in older adults. Alf Goal (LTG) Pt to demonstrate decreased TUG score by at least nine and a half seconds for a score of 15 using LRAD to demonstrate improve gait ability and decreased falls risk LTG Duration 12/10/23 Assessment Summary Assessment Pt good response to positioning use wedges/pillows for spinal & L shld support reclined for allowance for peridontal work. Pt good effort LE strengthening during bed mobility, side/supine/ standing there x with no require support of LUE required. Pt improved stand pivot both directions with contact support of w/c arm rests minimal LUE support this tx. Physical Therapy Plan Frequency and Duration Frequency of Treatment 2x/Week Plan of Care Start Date 09/11/23 Plan of Care End Date 12/10/23 Therapeutic Interventions Therapeutic Interventions Balance Training,Gait Training ,Home Exercise Program,Joint Mobilizations,Manual Therapy, Neuromuscular Re-education, Patient/Caregiver Education, Self-Care/Home Management,Soft Tissue Mobilization, Therapeutic Activities, Therapeutic Exercises, Wheelchair Management Next Visit Focus/Plan Next Note Type Treatment Note Next Visit Plan LE strengthening, activity tolerance, balance
--- NOTE | 2023-10-05 14:19 | PT.OTN ---
Current Diagnoses Foot drop, left foot (10/05/23) Unsteadiness on feet (10/05/23) Repeated falls (10/05/23) Weakness (10/05/23) Chronic fatigue, unspecified (10/05/23) Physical Therapy Treatment Note PT-OP-A Visit Information Start: 09/11/23 14:15 Freq: Status: Active Protocol: Document 10/05/23 08:07 AB (Rec: 10/05/23 10:41 AB [id number]) Out-Patient Physical Therapy Visit Information Visit Information Visit Type Treatment Note Visit Start Time 09:48 Visit Stop Time 10:32 Visit Number 5 Number of ASSOCIATE PROFESSOR OF [employer]IC Visits 3 Evaluation Information Evaluation Date 09/11/23 PT-OP-B Current Condition Start: 09/11/23 14:15 Freq: Status: Active Protocol: Document 09/11/23 12:00 DCW (Rec: 09/11/23 14:27 DCW [id number]) Current Condition History of Current Condition Onset Date Long-standing history Current Complaints Weakness, declining balance, falls, unsteadiness History of Current Condition Pt is an 88 year old male well known to this clinic presenting with complaints of a fairly severe recent decline in balance, LE strength, and functional mobility. Pt was previously seen at this facility, most recently discharged in 09/2022, for these same complaints. Was discharged at that time due to a plateau in progress, but has declined precipitously since then. Currently uses a manual wheelchair for community mobility, has a FWW and 4WW for home use (on different floors to eliminate need to carry walker up/down stairs). Admits he performs minimal walking on a day to day basis, and can't walk at all without a walker. Has fairly strong fear of falling at this point, admits that is falls typically occur during transition movements/transfers trying to use walker to turn and sit. Does have a known left foot drop, which has been an ongoing issue following back surgery. Treatment Goals Patient/Caregiver Goals I want to get up and move around with my cane and not rely on a walker, but maybe that's unrealistic at this point. PT-OP-C Subjective Start: 09/11/23 14:15 Freq: Status: Active Protocol: Document 10/05/23 08:07 AB (Rec: 10/05/23 10:41 AB [id number]) OP-PT Subjective Patient Comments Patient Comments Patient reports he is the same . Patient reports he tries to do the exercises twice a day, but sometimes it is only once . Patient reports he fell once since previous session, reports he turned with walker and body, reports he more or less got up by himself, did not go to MD. Patient reports only his pride is hurting since the fall. PT-OP-E Functional Tests Start: 09/11/23 14:15 Freq: Status: Active Protocol: Document 09/11/23 12:00 DCW (Rec: 09/11/23 14:29 DCW [id number]) Functional Tests 30 Second Sit to Stand Test Score x5 repetitions Comments Use of UEs, Back on LEs on table, uncontrolled descent Timed Up and Go (TUG) Score 24.50 with 4WW Comments Three-trial average (25.65, 24 .20, 23.66) PT-OP-G Mobility & Gait Start: 09/11/23 14:15 Freq: Status: Active Protocol: Document 09/11/23 12:00 DCW (Rec: 09/11/23 17:51 DCW [id number]) OP Mobility Evaluation Wheelchair Management Type of Wheelchair Manual Assessment Details Propels with B LEs, B UEs OP Gait Assessment Gait Gait Assistance Required: Contact Guard Assist Assistive Devices Assistive Device Gait Belt,4 Wheeled Walker Comments Gait Comments Decreased stride length, left steppage gait secondary to left foot drop. Poor activity tolerance PT-OP-M Strength Start: 09/11/23 14:15 Freq: Status: Active Protocol: Document 09/11/23 12:00 DCW (Rec: 09/11/23 17:51 DCW [id number]) Hip Strength Hip Manual Muscle Testing Right Flexion (L2) 4- Good- Extension (S1) 4 Good Abduction 4 Good Adduction 4 Good External Rotation 4 Good Internal Rotation 4 Good Left Flexion (L2) 3 Fair Extension (S1) 3 Fair Abduction 4- Good- Adduction 4- Good- External Rotation 3+ Fair+ Internal Rotation 4- Good- Knee Strength Knee Manual Muscle Testing Right Flexion (S2) 4- Good- Extension (L3) 4+ Good+ Left Flexion (S2) 3+ Fair+ Extension (L3) 4 Good Ankle/Foot Strength Ankle and Foot Manual Muscle Testing Right Dorsiflexion (L4) 3 Fair Left Dorsiflexion (L4) 1 Trace PT-OP-Q Treatments Start: 09/11/23 14:15 Freq: Status: Active Protocol: Document 10/05/23 08:07 AB (Rec: 10/05/23 10:41 AB [id number]) Therapeutic Exercises Supine Exercises hip flexor stretches Supine Exercise Name edge of bed not josey, modified one LE on bolster one LE on mat, then seated Side bilateral Equipment Used bolster Reps/Minutes one minute modified on bolster with breathing from diaphragm 1 min seated Comments reports little stretch modified with bolster, quad stretch with seated stre Bridging Supine Exercise Name Bridging Reps/Minutes X5 Comments good form reports no increased pain SLR Supine Exercise Name SLR Side bilateral Reps/Minutes X10 Comments verbal cues to rest for a moment between repetitions, the quad set prior Sidelying Exercises Hip Abduction Sidelying Exercise Name Hip Abduction Side bilateral Reps/Minutes x10 Comments verbal and tactile cue maintain hip abd midline Reverse Clamshell Sidelying Exercise Name Reverse Clamshell- HEP reviewed Side bilateral Reps/Minutes x10 Comments good eccentric control Clamshell Sidelying Exercise Name Clamshell Side bilateral Reps/Minutes x10 Comments verbal cues for trunk position Standing Exercises standing hip extension Standing Exercise Name with UE support at parallel bar Side bilateral Reps/Minutes X10 X 2 Comments Verbal cues to avoid excessive AROM side stepping Resistance AROM Equipment Used rail RUE support Reps/Minutes 10 ft x3 laps left and right Comments Verbal cues to avoid toeing out Therapeutic Activity Therapeutic Activity Stand Step Pivot Transfer Reps/Minutes multiple reps throughout tx Comments Patient initiates with bilateral UE support facing the seat he is transfering to, able to perform scoot piviot with buttocks back toward the seat with close supervision and one step verbal cues, from left and right side. Sit Stand Name with UE use, varying seat heights Reps/Minutes X5 X 2 Comments Verbal cues to stand fully upright when reaching upright, to sit down slowly and for hip hinge. PT-OP-T Assessment and Plan Start: 09/11/23 14:15 Freq: Status: Active Protocol: Document 10/05/23 08:07 AB (Rec: 10/05/23 10:41 AB [id number]) Physical Therapy Assessment Goals Three Impairment Pt performs 5 repetitions during 30sStS Automation Engineering Manager Goal (LTG) Pt to increase score on 30sStS by at least three to 8 repetitions with a controlled descent in order to demonstrate an improved tolerance to activity. LTG Duration 12/10/23 One Impairment Pt does not have an appropriate home exercise program Short Term Goal (STG) Pt to be independent and compliant with an appropriate HEP STG Duration 10/10/23 Two Impairment Pt TUG score of 24.5 using 4WW Impairment A gait speed of less than 1.97 ft/sec is indicative of increased likelihood of further functional decline in older adults. Intermediate Goal (LTG) Pt to demonstrate decreased TUG score by at least nine and a half seconds for a score of 15 using LRAD to demonstrate improve gait ability and decreased falls risk LTG Duration 12/10/23 Assessment Summary Assessment Pt reports feeling a little sore in the hamstrings end of session. LE weakness continues to limit functional mobility. Strength takes 6-8 weeks to eh a change in function. Physical Therapy Plan Frequency and Duration Frequency of Treatment 2x/Week Plan of Care Start Date 09/11/23 Plan of Care End Date 12/10/23 Next Visit Focus/Plan Next Note Type Treatment Note Next Visit Plan next session: pivot transfers, hip extension, bilateral LE balance, possibly work on turns in parallel bars. LE strengthening, activity tolerance, balance
--- NOTE | 2023-10-10 16:40 | PT.OTN ---
Current Diagnoses Foot drop, left foot (10/10/23) Unsteadiness on feet (10/10/23) Repeated falls (10/10/23) Weakness (10/10/23) Chronic fatigue, unspecified (10/10/23) Physical Therapy Treatment Note PT-OP-A Visit Information Start: 09/11/23 14:15 Freq: Status: Active Protocol: Document 10/10/23 13:08 AB (Rec: 10/10/23 16:40 AB [id number]) Out-Patient Physical Therapy Visit Information Visit Information Visit Type Treatment Note Visit Note Access Code: [email or web address] Visit Start Time 15:16 Visit Stop Time 16:00 Visit Number 6 Number of BROKERAGE OFFICE MANAGER Visits 4 Evaluation Information Evaluation Date 09/11/23 PT-OP-B Current Condition Start: 09/11/23 14:15 Freq: Status: Active Protocol: Document 09/11/23 12:00 DCW (Rec: 09/11/23 14:27 DCW [id number]) Current Condition History of Current Condition Onset Date Long-standing history Current Complaints Weakness, declining balance, falls, unsteadiness History of Current Condition Pt is an 88 year old male well known to this clinic presenting with complaints of a fairly severe recent decline in balance, LE strength, and functional mobility. Pt was previously seen at this facility, most recently discharged in 09/2022, for these same complaints. Was discharged at that time due to a plateau in progress, but has declined precipitously since then. Currently uses a manual wheelchair for community mobility, has a FWW and 4WW for home use (on different floors to eliminate need to carry walker up/down stairs). Admits he performs minimal walking on a day to day basis, and can't walk at all without a walker. Has fairly strong fear of falling at this point, admits that is falls typically occur during transition movements/transfers trying to use walker to turn and sit. Does have a known left foot drop, which has been an ongoing issue following back surgery. Treatment Goals Patient/Caregiver Goals I want to get up and move around with my cane and not rely on a walker, but maybe that's unrealistic at this point. PT-OP-C Subjective Start: 09/11/23 14:15 Freq: Status: Active Protocol: Document 10/10/23 13:08 AB (Rec: 10/10/23 16:40 AB [id number]) OP-PT Subjective Patient Comments Patient Comments Patient reports he has had no falls, has been doing some of the HEP, but it has not been a priority. PT-OP-E Functional Tests Start: 09/11/23 14:15 Freq: Status: Active Protocol: Document 09/11/23 12:00 DCW (Rec: 09/11/23 14:29 DCW [id number]) Functional Tests 30 Second Sit to Stand Test Score x5 repetitions Comments Use of UEs, Back on LEs on table, uncontrolled descent Timed Up and Go (TUG) Score 24.50 with 4WW Comments Three-trial average (25.65, 24 .20, 23.66) PT-OP-G Mobility & Gait Start: 09/11/23 14:15 Freq: Status: Active Protocol: Document 09/11/23 12:00 DCW (Rec: 09/11/23 17:51 DCW [id number]) OP Mobility Evaluation Wheelchair Management Type of Wheelchair Manual Assessment Details Propels with B LEs, B UEs OP Gait Assessment Gait Gait Assistance Required: Contact Guard Assist Assistive Devices Assistive Device Gait Belt,4 Wheeled Walker Comments Gait Comments Decreased stride length, left steppage gait secondary to left foot drop. Poor activity tolerance PT-OP-M Strength Start: 09/11/23 14:15 Freq: Status: Active Protocol: Document 09/11/23 12:00 DCW (Rec: 09/11/23 17:51 DCW [id number]) Hip Strength Hip Manual Muscle Testing Right Flexion (L2) 4- Good- Extension (S1) 4 Good Abduction 4 Good Adduction 4 Good External Rotation 4 Good Internal Rotation 4 Good Left Flexion (L2) 3 Fair Extension (S1) 3 Fair Abduction 4- Good- Adduction 4- Good- External Rotation 3+ Fair+ Internal Rotation 4- Good- Knee Strength Knee Manual Muscle Testing Right Flexion (S2) 4- Good- Extension (L3) 4+ Good+ Left Flexion (S2) 3+ Fair+ Extension (L3) 4 Good Ankle/Foot Strength Ankle and Foot Manual Muscle Testing Right Dorsiflexion (L4) 3 Fair Left Dorsiflexion (L4) 1 Trace PT-OP-Q Treatments Start: 09/11/23 14:15 Freq: Status: Active Protocol: Document 10/10/23 13:08 AB (Rec: 10/10/23 16:40 AB [id number]) Therapeutic Exercises Sitting Exercises seated hip abduction with band Side bilateral Equipment Used light blue band Reps/Minutes 2X10 and one one minute hold DF Reps/Minutes X10 X 2 post calf stretches Comments Verbal and visual cues Standing Exercises AP weight shift Side bilateral Reps/Minutes X10 Comments with UE support at parallel bars calf stretches on HOLLY Side bilateral Equipment Used parallel bars, HOLLY Reps/Minutes 60 sec X 2 knees straight 30 sec X 3 knees bent Comments CGA to minimal assist Therapeutic Activity Therapeutic Activity scoot pivot Reps/Minutes X1 left and right Comments VC and tactile cues for LE position, visual cues for technique, close supervision Sit Stand Name with UE use on armrests of WC Reps/Minutes 5X2 Comments stagger stance to left LE retro to increase right LE strength CGA to very minimal assist, VC for hip hinge Neuro Re-Education Treatment Balance Activities Romberg on foam pad Details eye open Equipment foam pad Reps/Duration 1 minute Comments hands above bars, CGA SLS with UE support Details right LE single UE support left LE right UE and left fist touching bar Reps/Duration X4 each LE Comments CGA and tactile/assit at left knee to decrease hyper extension Romberg Surface floor Equipment parallel bars Reps/Duration X2 min Comments VC to close eyes, position hands above bars to use as needed and open eyes with LOB. CGA to minimal assist. Self-Care/Home Management Treatment Education Other Education Patient ed to decrease velocity when turning with walker as turning with a walker takes more time and than ambulating forward Activities Self-Care/Home Management Activities seated hip abduction with band without holds and one, one minute hold added to HEP PT-OP-T Assessment and Plan Start: 09/11/23 14:15 Freq: Status: Active Protocol: Document 10/10/23 13:08 AB (Rec: 10/10/23 16:40 AB [id number]) Physical Therapy Assessment Goals Three Impairment Pt performs 5 repetitions during 30sStS Shipping Coordinator Goal (LTG) Pt to increase score on 30sStS by at least three to 8 repetitions with a controlled descent in order to demonstrate an improved tolerance to activity. LTG Duration 12/10/23 One Impairment Pt does not have an appropriate home exercise program Short Term Goal (STG) Pt to be independent and compliant with an appropriate HEP STG Duration 10/10/23 Two Impairment Pt TUG score of 24.5 using 4WW Impairment A gait speed of less than 1.97 ft/sec is indicative of increased likelihood of further functional decline in older adults. Shipping Coordinator Goal (LTG) Pt to demonstrate decreased TUG score by at least nine and a half seconds for a score of 15 using LRAD to demonstrate improve gait ability and decreased falls risk LTG Duration 12/10/23 Assessment Summary Assessment No reports of increased pain during session, visible increase in left ankle DF post calf stretches. left knee hyperextension on initiation of SLS with UE use. Physical Therapy Plan Frequency and Duration Frequency of Treatment 2x/Week Plan of Care Start Date 09/11/23 Plan of Care End Date 12/10/23 Next Visit Focus/Plan Next Note Type Treatment Note Next Visit Plan next session: pivot transfers, hip extension, bilateral LE balance/SLS with one UE use left knee guarded/assist, possibly work on turns in parallel bars/ stagger stance sit to drift miner clinic, calf stretches in clinic LE strengthening, activity tolerance, balance
--- NOTE | 2023-10-12 14:29 | PT.OTN ---
Current Diagnoses Foot drop, left foot (10/12/23) Unsteadiness on feet (10/12/23) Repeated falls (10/12/23) Weakness (10/12/23) Chronic fatigue, unspecified (10/12/23) Physical Therapy Treatment Note PT-OP-A Visit Information Start: 09/11/23 14:15 Freq: Status: Active Protocol: Document 10/12/23 13:45 DCW (Rec: 10/12/23 14:29 DCW [id number]) Out-Patient Physical Therapy Visit Information Visit Information Visit Type Treatment Note Visit Start Time 13:45 Visit Stop Time 14:30 Visit Number 7 Number of PRODUCTION OPERATIONS ENGINEER Visits 0 Evaluation Information Evaluation Date 09/11/23 PT-OP-B Current Condition Start: 09/11/23 14:15 Freq: Status: Active Protocol: Document 09/11/23 12:00 DCW (Rec: 09/11/23 14:27 DCW [id number]) Current Condition History of Current Condition Onset Date Long-standing history Current Complaints Weakness, declining balance, falls, unsteadiness History of Current Condition Pt is an 88 year old male well known to this clinic presenting with complaints of a fairly severe recent decline in balance, LE strength, and functional mobility. Pt was previously seen at this facility, most recently discharged in 09/2022, for these same complaints. Was discharged at that time due to a plateau in progress, but has declined precipitously since then. Currently uses a manual wheelchair for community mobility, has a FWW and 4WW for home use (on different floors to eliminate need to carry walker up/down stairs). Admits he performs minimal walking on a day to day basis, and can't walk at all without a walker. Has fairly strong fear of falling at this point, admits that is falls typically occur during transition movements/transfers trying to use walker to turn and sit. Does have a known left foot drop, which has been an ongoing issue following back surgery. Treatment Goals Patient/Caregiver Goals I want to get up and move around with my cane and not rely on a walker, but maybe that's unrealistic at this point. PT-OP-C Subjective Start: 09/11/23 14:15 Freq: Status: Active Protocol: Document 10/12/23 13:45 DCW (Rec: 10/12/23 14:29 DCW [id number]) OP-PT Subjective Patient Comments Patient Comments Not really much of a change. PT-OP-E Functional Tests Start: 09/11/23 14:15 Freq: Status: Active Protocol: Document 09/11/23 12:00 DCW (Rec: 09/11/23 14:29 DCW [id number]) Functional Tests 30 Second Sit to Stand Test Score x5 repetitions Comments Use of UEs, Back on LEs on table, uncontrolled descent Timed Up and Go (TUG) Score 24.50 with 4WW Comments Three-trial average (25.65, 24 .20, 23.66) PT-OP-G Mobility & Gait Start: 09/11/23 14:15 Freq: Status: Active Protocol: Document 09/11/23 12:00 DCW (Rec: 09/11/23 17:51 DCW [id number]) OP Mobility Evaluation Wheelchair Management Type of Wheelchair Manual Assessment Details Propels with B LEs, B UEs OP Gait Assessment Gait Gait Assistance Required: Contact Guard Assist Assistive Devices Assistive Device Gait Belt,4 Wheeled Walker Comments Gait Comments Decreased stride length, left steppage gait secondary to left foot drop. Poor activity tolerance PT-OP-M Strength Start: 09/11/23 14:15 Freq: Status: Active Protocol: Document 09/11/23 12:00 DCW (Rec: 09/11/23 17:51 DCW [id number]) Hip Strength Hip Manual Muscle Testing Right Flexion (L2) 4- Good- Extension (S1) 4 Good Abduction 4 Good Adduction 4 Good External Rotation 4 Good Internal Rotation 4 Good Left Flexion (L2) 3 Fair Extension (S1) 3 Fair Abduction 4- Good- Adduction 4- Good- External Rotation 3+ Fair+ Internal Rotation 4- Good- Knee Strength Knee Manual Muscle Testing Right Flexion (S2) 4- Good- Extension (L3) 4+ Good+ Left Flexion (S2) 3+ Fair+ Extension (L3) 4 Good Ankle/Foot Strength Ankle and Foot Manual Muscle Testing Right Dorsiflexion (L4) 3 Fair Left Dorsiflexion (L4) 1 Trace PT-OP-Q Treatments Start: 09/11/23 14:15 Freq: Status: Active Protocol: Document 10/12/23 13:45 DCW (Rec: 10/12/23 14:29 DCW [id number]) Cardio Equipment Recumbent Elliptical (Biodex) Duration (Minutes) 5 Resistance 5 Seat Position 9 Other BUE/ BLEs, 35-40 RPMs, Therapeutic Exercises Sitting Exercises LAQ Side bilateral Resistance 1# Reps/Minutes x10 each Comments kick to therapist target hand for TKE- Standing Exercises Hamstring Curls Standing Exercise Name HS curls Side bilateral Resistance 2# calf stretches on HOLLY Side bilateral Equipment Used parallel bars, HOLLY Reps/Minutes 60 sec X 2 knees straight 30 sec X 3 knees bent Comments CGA to minimal assist standing hip extension Standing Exercise Name with UE support at parallel bar Side bilateral Reps/Minutes X10 X 2 Comments Verbal cues to avoid excessive AROM side stepping Resistance AROM Equipment Used rail RUE support Reps/Minutes 10 ft x3 laps left and right Comments Verbal cues to avoid toeing out Neuro Re-Education Treatment Balance Activities Tilt Board Details Lateral, PF/DF Equipment // bars Foam Details Staggered Stance Surface staggered AirEx Romberg Surface floor Equipment parallel bars PT-OP-T Assessment and Plan Start: 09/11/23 14:15 Freq: Status: Active Protocol: Document 10/12/23 13:45 DCW (Rec: 10/12/23 14:29 DCW [id number]) Physical Therapy Assessment Goals Three Impairment Pt performs 5 repetitions during 30sStS Snf Goal (LTG) Pt to increase score on 30sStS by at least three to 8 repetitions with a controlled descent in order to demonstrate an improved tolerance to activity. LTG Duration 12/10/23 One Impairment Pt does not have an appropriate home exercise program Short Term Goal (STG) Pt to be independent and compliant with an appropriate HEP STG Duration 10/10/23 Two Impairment Pt TUG score of 24.5 using 4WW Impairment A gait speed of less than 1.97 ft/sec is indicative of increased likelihood of further functional decline in older adults. Fabricator Artificial Breast Goal (LTG) Pt to demonstrate decreased TUG score by at least nine and a half seconds for a score of 15 using LRAD to demonstrate improve gait ability and decreased falls risk LTG Duration 12/10/23 Assessment Summary Assessment Continues to fatigue pretty quickly, which does limit participation in most activities, but was able to recover quickly and continue activities or move onto next exercise. Struggles with balance challenges, still minimal ability to perform ankle strategies. Physical Therapy Plan Frequency and Duration Frequency of Treatment 2x/Week Plan of Care Start Date 09/11/23 Plan of Care End Date 12/10/23 Next Visit Focus/Plan Next Note Type Treatment Note Next Visit Plan next session: pivot transfers, hip extension, bilateral LE balance/SLS with one UE use left knee guarded/assist, possibly work on turns in parallel bars/ stagger stance sit to advanced nursing professor clinic, calf stretches in clinic LE strengthening, activity tolerance, balance
--- NOTE | 2023-10-16 12:21 | PT.OTN ---
Current Diagnoses Foot drop, left foot (10/16/23) Unsteadiness on feet (10/16/23) Repeated falls (10/16/23) Weakness (10/16/23) Chronic fatigue, unspecified (10/16/23) Physical Therapy Treatment Note PT-OP-A Visit Information Start: 09/11/23 14:15 Freq: Status: Active Protocol: Document 10/16/23 09:46 AB (Rec: 10/16/23 12:21 AB [id number]) Out-Patient Physical Therapy Visit Information Visit Information Visit Type Treatment Note Visit Start Time 10:33 Visit Stop Time 11:15 Visit Number 8 Number of TABLEAU ADMINISTRATOR Visits 1 Evaluation Information Evaluation Date 09/11/23 PT-OP-B Current Condition Start: 09/11/23 14:15 Freq: Status: Active Protocol: Document 09/11/23 12:00 DCW (Rec: 09/11/23 14:27 DCW [id number]) Current Condition History of Current Condition Onset Date Long-standing history Current Complaints Weakness, declining balance, falls, unsteadiness History of Current Condition Pt is an 88 year old male well known to this clinic presenting with complaints of a fairly severe recent decline in balance, LE strength, and functional mobility. Pt was previously seen at this facility, most recently discharged in 09/2022, for these same complaints. Was discharged at that time due to a plateau in progress, but has declined precipitously since then. Currently uses a manual wheelchair for community mobility, has a FWW and 4WW for home use (on different floors to eliminate need to carry walker up/down stairs). Admits he performs minimal walking on a day to day basis, and can't walk at all without a walker. Has fairly strong fear of falling at this point, admits that is falls typically occur during transition movements/transfers trying to use walker to turn and sit. Does have a known left foot drop, which has been an ongoing issue following back surgery. Treatment Goals Patient/Caregiver Goals I want to get up and move around with my cane and not rely on a walker, but maybe that's unrealistic at this point. PT-OP-C Subjective Start: 09/11/23 14:15 Freq: Status: Active Protocol: Document 10/16/23 09:46 AB (Rec: 10/16/23 12:21 AB [id number]) OP-PT Subjective Patient Comments Patient Comments Patient reports he does not feel that he has made much of change. Patient reports he did his exercises at home over the weekend at least once a day, most days twice a day. PT-OP-E Functional Tests Start: 09/11/23 14:15 Freq: Status: Active Protocol: Document 09/11/23 12:00 DCW (Rec: 09/11/23 14:29 DCW [id number]) Functional Tests 30 Second Sit to Stand Test Score x5 repetitions Comments Use of UEs, Back on LEs on table, uncontrolled descent Timed Up and Go (TUG) Score 24.50 with 4WW Comments Three-trial average (25.65, 24 .20, 23.66) PT-OP-G Mobility & Gait Start: 09/11/23 14:15 Freq: Status: Active Protocol: Document 09/11/23 12:00 DCW (Rec: 09/11/23 17:51 DCW [id number]) OP Mobility Evaluation Wheelchair Management Type of Wheelchair Manual Assessment Details Propels with B LEs, B UEs OP Gait Assessment Gait Gait Assistance Required: Contact Guard Assist Assistive Devices Assistive Device Gait Belt,4 Wheeled Walker Comments Gait Comments Decreased stride length, left steppage gait secondary to left foot drop. Poor activity tolerance PT-OP-M Strength Start: 09/11/23 14:15 Freq: Status: Active Protocol: Document 09/11/23 12:00 DCW (Rec: 09/11/23 17:51 DCW [id number]) Hip Strength Hip Manual Muscle Testing Right Flexion (L2) 4- Good- Extension (S1) 4 Good Abduction 4 Good Adduction 4 Good External Rotation 4 Good Internal Rotation 4 Good Left Flexion (L2) 3 Fair Extension (S1) 3 Fair Abduction 4- Good- Adduction 4- Good- External Rotation 3+ Fair+ Internal Rotation 4- Good- Knee Strength Knee Manual Muscle Testing Right Flexion (S2) 4- Good- Extension (L3) 4+ Good+ Left Flexion (S2) 3+ Fair+ Extension (L3) 4 Good Ankle/Foot Strength Ankle and Foot Manual Muscle Testing Right Dorsiflexion (L4) 3 Fair Left Dorsiflexion (L4) 1 Trace PT-OP-Q Treatments Start: 09/11/23 14:15 Freq: Status: Active Protocol: Document 10/16/23 09:46 AB (Rec: 10/16/23 12:21 AB [id number]) Therapeutic Exercises Sidelying Exercises Reverse Clamshell Sidelying Exercise Name Reverse Clamshell- HEP reviewed Side bilateral Reps/Minutes x15 Comments good eccentric control Clamshell Sidelying Exercise Name Clamshell Reps/Minutes X15 Sitting Exercises seated hip abduction with band Side bilateral Equipment Used level 2 band Reps/Minutes 1X10 and one one minute hold Standing Exercises AP weight shift Side bilateral Reps/Minutes X10 x2 Comments with UE support at parallel bars standing hip extension Standing Exercise Name with UE support at parallel bar Side bilateral Reps/Minutes X10 X 2 Comments Verbal cues to avoid excessive AROM side stepping Resistance AROM Equipment Used rail RUE support Reps/Minutes 10 ft x3 laps left and right Comments Verbal cues to avoid toeing out Other Exercises WS lateral Other Exercise Name progressed from to UE to one UE assist Equipment Used with and without scale Reps/Minutes 3X10 Comments tactile cues and assist left LE Therapeutic Activity Therapeutic Activity scoot pivot Reps/Minutes X4 X 2 left and right then X 2 X 2 Comments last 2 sets with one UE use Sit Stand Name with UE use on armrests of WC Reps/Minutes 5X2 Comments stagger stance to left LE retro to increase right LE strength CGA to very minimal assist, VC for hip hinge Neuro Re-Education Treatment Balance Activities Romberg on foam pad Details eye open and eyes closed Equipment foam pad Reps/Duration 1 minute Comments hands above bars, CGA PT-OP-T Assessment and Plan Start: 09/11/23 14:15 Freq: Status: Active Protocol: Document 10/16/23 09:46 (Rec: 10/16/23 12:21 AB [id number]) Physical Therapy Assessment Goals Three Impairment Pt performs 5 repetitions during 30sStS Nursing Home Goal (LTG) Pt to increase score on 30sStS by at least three to 8 repetitions with a controlled descent in order to demonstrate an improved tolerance to activity. LTG Duration 12/10/23 One Impairment Pt does not have an appropriate home exercise program Short Term Goal (STG) Pt to be independent and compliant with an appropriate HEP STG Duration 10/10/23 Two Impairment Pt TUG score of 24.5 using 4WW Impairment A gait speed of less than 1.97 ft/sec is indicative of increased likelihood of further functional decline in older adults. Nursing Home Goal (LTG) Pt to demonstrate decreased TUG score by at least nine and a half seconds for a score of 15 using LRAD to demonstrate improve gait ability and decreased falls risk LTG Duration 12/10/23 Assessment Summary Assessment Continues to fatigue pretty quickly, which does limit participation in most activities, but was able to recover quickly and continue activities or move onto next exercise. Struggles with balance challenges, still minimal ability to perform ankle strategies. Physical Therapy Plan Frequency and Duration Frequency of Treatment 2x/Week Plan of Care Start Date 09/11/23 Plan of Care End Date 12/10/23 Next Visit Focus/Plan Next Note Type Treatment Note Next Visit Plan next session: pivot transfers one UE use,l LE balance/SLS with one UE use left knee guarded/assist when able to support full body weight, possibly work on turns in parallel bars/ stagger stance sit to nuclear waste management engineer clinic 3X10, calf stretches in clinic, light blue band for sidelying clamshell LE strengthening, activity tolerance, balance
--- NOTE | 2023-10-20 12:49 | PT.OTN ---
Current Diagnoses Foot drop, left foot (10/20/23) Unsteadiness on feet (10/20/23) Repeated falls (10/20/23) Weakness (10/20/23) Chronic fatigue, unspecified (10/20/23) Physical Therapy Treatment Note PT-OP-A Visit Information Start: 09/11/23 14:15 Freq: Status: Active Protocol: Document 10/20/23 12:00 DCW (Rec: 10/20/23 12:49 DCW [id number]) Out-Patient Physical Therapy Visit Information Visit Information Visit Type Treatment Note Visit Start Time 12:00 Visit Stop Time 12:45 Visit Number 9 Number of AUTOCAD DRAFTSMAN Visits 0 Evaluation Information Evaluation Date 09/11/23 PT-OP-B Current Condition Start: 09/11/23 14:15 Freq: Status: Active Protocol: Document 09/11/23 12:00 DCW (Rec: 09/11/23 14:27 DCW [id number]) Current Condition History of Current Condition Onset Date Long-standing history Current Complaints Weakness, declining balance, falls, unsteadiness History of Current Condition Pt is an 88 year old male well known to this clinic presenting with complaints of a fairly severe recent decline in balance, LE strength, and functional mobility. Pt was previously seen at this facility, most recently discharged in 09/2022, for these same complaints. Was discharged at that time due to a plateau in progress, but has declined precipitously since then. Currently uses a manual wheelchair for community mobility, has a FWW and 4WW for home use (on different floors to eliminate need to carry walker up/down stairs). Admits he performs minimal walking on a day to day basis, and can't walk at all without a walker. Has fairly strong fear of falling at this point, admits that is falls typically occur during transition movements/transfers trying to use walker to turn and sit. Does have a known left foot drop, which has been an ongoing issue following back surgery. Treatment Goals Patient/Caregiver Goals I want to get up and move around with my cane and not rely on a walker, but maybe that's unrealistic at this point. PT-OP-C Subjective Start: 09/11/23 14:15 Freq: Status: Active Protocol: Document 10/20/23 12:00 DCW (Rec: 10/20/23 12:49 DCW [id number]) OP-PT Subjective Patient Comments Patient Comments Pt continues to note minimal overall change PT-OP-E Functional Tests Start: 09/11/23 14:15 Freq: Status: Active Protocol: Document 09/11/23 12:00 DCW (Rec: 09/11/23 14:29 DCW [id number]) Functional Tests 30 Second Sit to Stand Test Score x5 repetitions Comments Use of UEs, Back on LEs on table, uncontrolled descent Timed Up and Go (TUG) Score 24.50 with 4WW Comments Three-trial average (25.65, 24 .20, 23.66) PT-OP-G Mobility & Gait Start: 09/11/23 14:15 Freq: Status: Active Protocol: Document 09/11/23 12:00 DCW (Rec: 09/11/23 17:51 DCW [id number]) OP Mobility Evaluation Wheelchair Management Type of Wheelchair Manual Assessment Details Propels with B LEs, B UEs OP Gait Assessment Gait Gait Assistance Required: Contact Guard Assist Assistive Devices Assistive Device Gait Belt,4 Wheeled Walker Comments Gait Comments Decreased stride length, left steppage gait secondary to left foot drop. Poor activity tolerance PT-OP-M Strength Start: 09/11/23 14:15 Freq: Status: Active Protocol: Document 09/11/23 12:00 DCW (Rec: 09/11/23 17:51 DCW [id number]) Hip Strength Hip Manual Muscle Testing Right Flexion (L2) 4- Good- Extension (S1) 4 Good Abduction 4 Good Adduction 4 Good External Rotation 4 Good Internal Rotation 4 Good Left Flexion (L2) 3 Fair Extension (S1) 3 Fair Abduction 4- Good- Adduction 4- Good- External Rotation 3+ Fair+ Internal Rotation 4- Good- Knee Strength Knee Manual Muscle Testing Right Flexion (S2) 4- Good- Extension (L3) 4+ Good+ Left Flexion (S2) 3+ Fair+ Extension (L3) 4 Good Ankle/Foot Strength Ankle and Foot Manual Muscle Testing Right Dorsiflexion (L4) 3 Fair Left Dorsiflexion (L4) 1 Trace PT-OP-Q Treatments Start: 09/11/23 14:15 Freq: Status: Active Protocol: Document 10/20/23 12:00 DCW (Rec: 10/20/23 12:49 DCW [id number]) Cardio Equipment Recumbent Elliptical (Biodex) Duration (Minutes) 5 Resistance 5 Seat Position 9 Other BUE/ BLEs, 35-40 RPMs, Gym Equipment Shuttle Recovery Unilateral Squats Details B Resistance 25# (new band) Shuttle Recovery Platform Stable Reps/Time x15 Bilateral Squats Resistance 50# (both teal) Shuttle Recovery Platform Stable Reps/Time x12 Therapeutic Exercises Sitting Exercises Hamstring Curls Sitting Exercise Name Hamstring Curls Side bilateral Resistance Lv 2 Reps/Minutes x10 Standing Exercises calf stretches on HOLLY Side bilateral Equipment Used parallel bars, HOLLY Reps/Minutes 60 sec X 2 knees straight 30 sec X 3 knees bent Comments CGA to minimal assist Neuro Re-Education Treatment Balance Activities Semi-tandem Details Semi-tandem Equipment // bars Tilt Board Details Lateral, PF/DF Equipment // bars Foam Details WBOS Surface AirEx SLS with UE support Details SLS Comments CGA and tactile/assit at left knee to decrease hyper extension PT-OP-T Assessment and Plan Start: 09/11/23 14:15 Freq: Status: Active Protocol: Document 10/20/23 12:00 DCW (Rec: 10/20/23 12:49 DCW [id number]) Physical Therapy Assessment Impairments Impairments Activity Tolerance,Balance, Functional Activities, Functional Mobility,Gait,ROM, Soft Tissue Mobility,Strength, Tone,Transfers Goals Three Impairment Pt performs 5 repetitions during 30sStS Jail Goal (LTG) Pt to increase score on 30sStS by at least three to 8 repetitions with a controlled descent in order to demonstrate an improved tolerance to activity. LTG Duration 12/10/23 One Impairment Pt does not have an appropriate home exercise program Short Term Goal (STG) Pt to be independent and compliant with an appropriate HEP STG Duration 10/10/23 Two Impairment Pt TUG score of 24.5 using 4WW Impairment A gait speed of less than 1.97 ft/sec is indicative of increased likelihood of further functional decline in older adults. Jail Goal (LTG) Pt to demonstrate decreased TUG score by at least nine and a half seconds for a score of 15 using LRAD to demonstrate improve gait ability and decreased falls risk LTG Duration 12/10/23 Assessment Summary Assessment Pt does not feel like there has been much change since beginning therapy. Considering just discharging following his last two scheduled, but would like to take the weekend to think about it. Does note that it is difficult for him to get here, as he relies on his for transportation. Otherwise, continue to focus onLE strengthening, balance, gait, and transfers. Physical Therapy Plan Frequency and Duration Frequency of Treatment 2x/Week Plan of Care Start Date 09/11/23 Plan of Care End Date 12/10/23 Next Visit Focus/Plan Next Note Type Treatment Note Next Visit Plan next session: pivot transfers one UE use,l LE balance/SLS with one UE use left knee guarded/assist when able to support full body weight, possibly work on turns in parallel bars/ stagger stance sit to information resources manager clinic 3X10, calf stretches in clinic, light blue band for sidelying clamshell LE strengthening, activity tolerance, balance
--- NOTE | 2023-10-25 12:13 | PT.OTN ---
Current Diagnoses Foot drop, left foot (10/25/23) Unsteadiness on feet (10/25/23) Repeated falls (10/25/23) Weakness (10/25/23) Chronic fatigue, unspecified (10/25/23) Physical Therapy Treatment Note PT-OP-A Visit Information Start: 09/11/23 14:15 Freq: Status: Active Protocol: Document 10/25/23 11:21 AB (Rec: 10/25/23 12:12 AB [id number]) Out-Patient Physical Therapy Visit Information Visit Information Visit Type Treatment Note Visit Start Time 11:19 Visit Stop Time 12:00 Visit Number 10 Number of CONTROL SUPERVISOR Visits 1 Evaluation Information Evaluation Date 09/11/23 PT-OP-B Current Condition Start: 09/11/23 14:15 Freq: Status: Active Protocol: Document 09/11/23 12:00 DCW (Rec: 09/11/23 14:27 DCW [id number]) Current Condition History of Current Condition Onset Date Long-standing history Current Complaints Weakness, declining balance, falls, unsteadiness History of Current Condition Pt is an 88 year old male well known to this clinic presenting with complaints of a fairly severe recent decline in balance, LE strength, and functional mobility. Pt was previously seen at this facility, most recently discharged in 09/2022, for these same complaints. Was discharged at that time due to a plateau in progress, but has declined precipitously since then. Currently uses a manual wheelchair for community mobility, has a FWW and 4WW for home use (on different floors to eliminate need to carry walker up/down stairs). Admits he performs minimal walking on a day to day basis, and can't walk at all without a walker. Has fairly strong fear of falling at this point, admits that is falls typically occur during transition movements/transfers trying to use walker to turn and sit. Does have a known left foot drop, which has been an ongoing issue following back surgery. Treatment Goals Patient/Caregiver Goals I want to get up and move around with my cane and not rely on a walker, but maybe that's unrealistic at this point. PT-OP-C Subjective Start: 09/11/23 14:15 Freq: Status: Active Protocol: Document 10/25/23 11:21 AB (Rec: 10/25/23 12:12 AB [id number]) OP-PT Subjective Patient Comments Patient Comments Patient reports he feels he is not making any progress. Chuckie reports pain in legs and feet in the morning make it difficult to get out of bed . PT-OP-E Functional Tests Start: 09/11/23 14:15 Freq: Status: Active Protocol: Document 09/11/23 12:00 DCW (Rec: 09/11/23 14:29 DCW [id number]) Functional Tests 30 Second Sit to Stand Test Score x5 repetitions Comments Use of UEs, Back on LEs on table, uncontrolled descent Timed Up and Go (TUG) Score 24.50 with 4WW Comments Three-trial average (25.65, 24 .20, 23.66) PT-OP-G Mobility & Gait Start: 09/11/23 14:15 Freq: Status: Active Protocol: Document 09/11/23 12:00 DCW (Rec: 09/11/23 17:51 DCW [id number]) OP Mobility Evaluation Wheelchair Management Type of Wheelchair Manual Assessment Details Propels with B LEs, B UEs OP Gait Assessment Gait Gait Assistance Required: Contact Guard Assist Assistive Devices Assistive Device Gait Belt,4 Wheeled Walker Comments Gait Comments Decreased stride length, left steppage gait secondary to left foot drop. Poor activity tolerance PT-OP-M Strength Start: 09/11/23 14:15 Freq: Status: Active Protocol: Document 09/11/23 12:00 DCW (Rec: 09/11/23 17:51 DCW [id number]) Hip Strength Hip Manual Muscle Testing Right Flexion (L2) 4- Good- Extension (S1) 4 Good Abduction 4 Good Adduction 4 Good External Rotation 4 Good Internal Rotation 4 Good Left Flexion (L2) 3 Fair Extension (S1) 3 Fair Abduction 4- Good- Adduction 4- Good- External Rotation 3+ Fair+ Internal Rotation 4- Good- Knee Strength Knee Manual Muscle Testing Right Flexion (S2) 4- Good- Extension (L3) 4+ Good+ Left Flexion (S2) 3+ Fair+ Extension (L3) 4 Good Ankle/Foot Strength Ankle and Foot Manual Muscle Testing Right Dorsiflexion (L4) 3 Fair Left Dorsiflexion (L4) 1 Trace PT-OP-Q Treatments Start: 09/11/23 14:15 Freq: Status: Active Protocol: Document 10/25/23 11:21 AB (Rec: 03/27/24 12:12 AB [id number]) Therapeutic Exercises Sitting Exercises seated hip abduction with band Side bilateral Equipment Used level 3 band Reps/Minutes 2X10 and one one minute hold Standing Exercises AP weight shift Side bilateral Reps/Minutes X10 x2 Comments with UE support at parallel bars calf stretches on HOLLY Equipment Used parallel bars, HOLLY Reps/Minutes 60 seconds with knee straight and 60 seconds with knee bent Comments supervision Other Exercises WS lateral Other Exercise Name bilateral and one UE use briefly Equipment Used with and without scale Reps/Minutes X7 Comments tactile cues and assist left LE Therapeutic Activity Therapeutic Activity supine to and from sit Reps/Minutes X2 left and X 2 right Comments one step verbal cues, patient ed to perform from left and right side to gain core strength for ambulation and to perform rolling to sitting prior to out of bed. scoot pivot Reps/Minutes X3 left and right Comments CGA to minimal assist, transfers to level or slight decline one UE use throughout, Verbal cues for tech Sit Stand Name with UE use on armrests of WC Reps/Minutes 5X2 Comments stagger stance to left LE retro to increase right LE strength CGA to very minimal assist, VC for hip hinge Neuro Re-Education Treatment Balance Activities SLS with UE support Details SLS Reps/Duration x6 Comments CGA and tactile/assit at left knee to decrease hyper extension PT-OP-T Assessment and Plan Start: 09/11/23 14:15 Freq: Status: Active Protocol: Document 10/25/23 11:21 AB (Rec: 10/25/23 12:12 AB [id number]) Physical Therapy Assessment Goals Three Impairment Pt performs 5 repetitions during 30sStS Veneer Drier Tailer Goal (LTG) Pt to increase score on 30sStS by at least three to 8 repetitions with a controlled descent in order to demonstrate an improved tolerance to activity. LTG Duration 12/10/23 One Impairment Pt does not have an appropriate home exercise program Short Term Goal (STG) Pt to be independent and compliant with an appropriate HEP STG Duration 10/10/23 Two Impairment Pt TUG score of 24.5 using 4WW Impairment A gait speed of less than 1.97 ft/sec is indicative of increased likelihood of further functional decline in older adults. Residential Goal (LTG) Pt to demonstrate decreased TUG score by at least nine and a half seconds for a score of 15 using LRAD to demonstrate improve gait ability and decreased falls risk LTG Duration 12/10/23 Assessment Summary Assessment Patient able to perform scoot pivot transfer with one UE with CGA to minimal assist this session. Chuckie continues to require assist at left knee with weight shift left with UE support but does place 150 lb of weight through left LE, likely to buckle or hyperextend without physical assist at knee. Physical Therapy Plan Frequency and Duration Frequency of Treatment 2x/Week Plan of Care Start Date 09/11/23 Plan of Care End Date 12/10/23 Next Visit Focus/Plan Next Note Type Treatment Note Next Visit Plan next session: pivot transfers one UE use,l LE balance/SLS with one UE use left knee guarded/assist when able to support full body weight, possibly work on turns in parallel bars/ stagger stance sit to contractor broomcorn threshing clinic 3X10, calf stretches in clinic, light blue band for sidelying clamshell LE strengthening, activity tolerance, balance [id number]
--- NOTE | 2023-10-26 10:21 | PT.OTN ---
Current Diagnoses Foot drop, left foot (10/26/23) Unsteadiness on feet (10/26/23) Repeated falls (10/26/23) Weakness (10/26/23) Chronic fatigue, unspecified (10/26/23) Physical Therapy Treatment Note PT-OP-A Visit Information Start: 09/11/23 14:15 Freq: Status: Active Protocol: Document 10/26/23 09:35 DCW (Rec: 10/26/23 10:21 DCW [id number]) Out-Patient Physical Therapy Visit Information Visit Information Visit Type Treatment Note Visit Start Time 09:35 Visit Stop Time 10:20 Visit Number 11 Number of SUPERVISOR PHOSPHATIC FERTILIZER Visits 0 Evaluation Information Evaluation Date 09/11/23 PT-OP-B Current Condition Start: 09/11/23 14:15 Freq: Status: Active Protocol: Document 09/11/23 12:00 DCW (Rec: 09/11/23 14:27 DCW [id number]) Current Condition History of Current Condition Onset Date Long-standing history Current Complaints Weakness, declining balance, falls, unsteadiness History of Current Condition Pt is an 88 year old male well known to this clinic presenting with complaints of a fairly severe recent decline in balance, LE strength, and functional mobility. Pt was previously seen at this facility, most recently discharged in 09/2022, for these same complaints. Was discharged at that time due to a plateau in progress, but has declined precipitously since then. Currently uses a manual wheelchair for community mobility, has a FWW and 4WW for home use (on different floors to eliminate need to carry walker up/down stairs). Admits he performs minimal walking on a day to day basis, and can't walk at all without a walker. Has fairly strong fear of falling at this point, admits that is falls typically occur during transition movements/transfers trying to use walker to turn and sit. Does have a known left foot drop, which has been an ongoing issue following back surgery. Treatment Goals Patient/Caregiver Goals I want to get up and move around with my cane and not rely on a walker, but maybe that's unrealistic at this point. PT-OP-C Subjective Start: 09/11/23 14:15 Freq: Status: Active Protocol: Document 10/26/23 09:35 DCW (Rec: 10/26/23 10:21 DCW [id number]) OP-PT Subjective Patient Comments Patient Comments Pt notes that he is still a little tired from his PT appointment last week. PT-OP-E Functional Tests Start: 09/11/23 14:15 Freq: Status: Active Protocol: Document 09/11/23 12:00 DCW (Rec: 09/11/23 14:29 DCW [id number]) Functional Tests 30 Second Sit to Stand Test Score x5 repetitions Comments Use of UEs, Back on LEs on table, uncontrolled descent Timed Up and Go (TUG) Score 24.50 with 4WW Comments Three-trial average (25.65, 24 .20, 23.66) PT-OP-G Mobility & Gait Start: 09/11/23 14:15 Freq: Status: Active Protocol: Document 09/11/23 12:00 DCW (Rec: 09/11/23 17:51 DCW [id number]) OP Mobility Evaluation Wheelchair Management Type of Wheelchair Manual Assessment Details Propels with B LEs, B UEs OP Gait Assessment Gait Gait Assistance Required: Contact Guard Assist Assistive Devices Assistive Device Gait Belt,4 Wheeled Walker Comments Gait Comments Decreased stride length, left steppage gait secondary to left foot drop. Poor activity tolerance PT-OP-M Strength Start: 09/11/23 14:15 Freq: Status: Active Protocol: Document 09/11/23 12:00 DCW (Rec: 09/11/23 17:51 DCW [id number]) Hip Strength Hip Manual Muscle Testing Right Flexion (L2) 4- Good- Extension (S1) 4 Good Abduction 4 Good Adduction 4 Good External Rotation 4 Good Internal Rotation 4 Good Left Flexion (L2) 3 Fair Extension (S1) 3 Fair Abduction 4- Good- Adduction 4- Good- External Rotation 3+ Fair+ Internal Rotation 4- Good- Knee Strength Knee Manual Muscle Testing Right Flexion (S2) 4- Good- Extension (L3) 4+ Good+ Left Flexion (S2) 3+ Fair+ Extension (L3) 4 Good Ankle/Foot Strength Ankle and Foot Manual Muscle Testing Right Dorsiflexion (L4) 3 Fair Left Dorsiflexion (L4) 1 Trace PT-OP-Q Treatments Start: 09/11/23 14:15 Freq: Status: Active Protocol: Document 10/26/23 09:35 DCW (Rec: 10/26/23 10:21 DCW [id number]) Cardio Equipment Recumbent Elliptical (Biodex) Duration (Minutes) 5 Resistance 5 Seat Position 9 Other BUE/ BLEs, 35-40 RPMs, Gym Equipment Shuttle Recovery Unilateral Squats Details B Resistance 25# (new band) Shuttle Recovery Platform Stable Reps/Time x15 Bilateral Squats Resistance 50# (two new) Shuttle Recovery Platform Stable Reps/Time x12 Therapeutic Exercises Standing Exercises TKE Standing Exercise Name TKE Side bilateral Resistance Lv 3 Hamstring Curls Standing Exercise Name HS curls Side bilateral Resistance 4# calf stretches on HOLLY Equipment Used parallel bars, HOLLY Reps/Minutes 60 seconds with knee straight and 60 seconds with knee bent Comments supervision Neuro Re-Education Treatment Balance Activities Semi-tandem Details Semi-tandem Equipment @ rail Tilt Board Details Lateral, PF/DF Equipment @ rail PT-OP-T Assessment and Plan Start: 09/11/23 14:15 Freq: Status: Active Protocol: Document 10/26/23 09:35 DCW (Rec: 10/26/23 10:21 DCW [id number]) Physical Therapy Assessment Impairments Impairments Activity Tolerance,Balance, Functional Activities, Functional Mobility,Gait,ROM, Soft Tissue Mobility,Strength, Tone,Transfers Goals Three Impairment Pt performs 5 repetitions during 30sStS Complaints Coordinator Goal (LTG) Pt to increase score on 30sStS by at least three to 8 repetitions with a controlled descent in order to demonstrate an improved tolerance to activity. LTG Duration 12/10/23 One Impairment Pt does not have an appropriate home exercise program Short Term Goal (STG) Pt to be independent and compliant with an appropriate HEP STG Duration 10/10/23 Two Impairment Pt TUG score of 24.5 using 4WW Impairment A gait speed of less than 1.97 ft/sec is indicative of increased likelihood of further functional decline in older adults. Detention Goal (LTG) Pt to demonstrate decreased TUG score by at least nine and a half seconds for a score of 15 using LRAD to demonstrate improve gait ability and decreased falls risk LTG Duration 12/10/23 Assessment Summary Assessment Pt demonstrating improved pivot transfers today, not performing a 270? turn instead of 90?. Biggest limiting factor continues to appear to be nearly no motor function in his ankle, limits stabilization/ankle strategies . Continue to focus on improving activity tolerance, balance, and LE strength. Physical Therapy Plan Frequency and Duration Frequency of Treatment 2x/Week Plan of Care Start Date 09/11/23 Plan of Care End Date 12/10/23 Next Visit Focus/Plan Next Note Type Treatment Note Next Visit Plan next session: pivot transfers one UE use,l LE balance/SLS with one UE use left knee guarded/assist when able to support full body weight, possibly work on turns in parallel bars/ stagger stance sit to automatic typewriter inspector clinic 3X10, calf stretches in clinic, light blue band for sidelying clamshell LE strengthening, activity tolerance, balance
--- NOTE | 2023-10-31 16:54 | PT.OTN ---
Current Diagnoses Foot drop, left foot (10/31/23) Unsteadiness on feet (10/31/23) Repeated falls (10/31/23) Weakness (10/31/23) Chronic fatigue, unspecified (10/31/23) Physical Therapy Treatment Note PT-OP-A Visit Information Start: 09/11/23 14:15 Freq: Status: Active Protocol: Document 10/31/23 14:33 AB (Rec: 10/31/23 15:15 AB [id number]) Out-Patient Physical Therapy Visit Information Visit Information Visit Type Treatment Note Visit Start Time 14:34 Visit Stop Time 15:15 Visit Number 12 Number of FREIGHT ELEVATOR ERECTOR Visits 1 Evaluation Information Evaluation Date 09/11/23 PT-OP-B Current Condition Start: 09/11/23 14:15 Freq: Status: Active Protocol: Document 09/11/23 12:00 DCW (Rec: 09/11/23 14:27 DCW [id number]) Current Condition History of Current Condition Onset Date Long-standing history Current Complaints Weakness, declining balance, falls, unsteadiness History of Current Condition Pt is an 88 year old male well known to this clinic presenting with complaints of a fairly severe recent decline in balance, LE strength, and functional mobility. Pt was previously seen at this facility, most recently discharged in 09/2022, for these same complaints. Was discharged at that time due to a plateau in progress, but has declined precipitously since then. Currently uses a manual wheelchair for community mobility, has a FWW and 4WW for home use (on different floors to eliminate need to carry walker up/down stairs). Admits he performs minimal walking on a day to day basis, and can't walk at all without a walker. Has fairly strong fear of falling at this point, admits that is falls typically occur during transition movements/transfers trying to use walker to turn and sit. Does have a known left foot drop, which has been an ongoing issue following back surgery. Treatment Goals Patient/Caregiver Goals I want to get up and move around with my cane and not rely on a walker, but maybe that's unrealistic at this point. PT-OP-C Subjective Start: 09/11/23 14:15 Freq: Status: Active Protocol: Document 10/31/23 14:33 AB (Rec: 10/31/23 15:15 AB [id number]) OP-PT Subjective Patient Comments Patient Comments Patient reports he is the same to worse, reports 2 days ago was standing in the bathroom, barely made it to the bed and had to help him into bed. Comments he has times where he feels he is losing the power in his legs moving up into his arms. PT-OP-E Functional Tests Start: 09/11/23 14:15 Freq: Status: Active Protocol: Document 09/11/23 12:00 DCW (Rec: 09/11/23 14:29 DCW [id number]) Functional Tests 30 Second Sit to Stand Test Score x5 repetitions Comments Use of UEs, Back on LEs on table, uncontrolled descent Timed Up and Go (TUG) Score 24.50 with 4WW Comments Three-trial average (25.65, 24 .20, 23.66) PT-OP-G Mobility & Gait Start: 09/11/23 14:15 Freq: Status: Active Protocol: Document 09/11/23 12:00 DCW (Rec: 09/11/23 17:51 DCW [id number]) OP Mobility Evaluation Wheelchair Management Type of Wheelchair Manual Assessment Details Propels with B LEs, B UEs OP Gait Assessment Gait Gait Assistance Required: Contact Guard Assist Assistive Devices Assistive Device Gait Belt,4 Wheeled Walker Comments Gait Comments Decreased stride length, left steppage gait secondary to left foot drop. Poor activity tolerance PT-OP-M Strength Start: 09/11/23 14:15 Freq: Status: Active Protocol: Document 09/11/23 12:00 DCW (Rec: 09/11/23 17:51 DCW [id number]) Hip Strength Hip Manual Muscle Testing Right Flexion (L2) 4- Good- Extension (S1) 4 Good Abduction 4 Good Adduction 4 Good External Rotation 4 Good Internal Rotation 4 Good Left Flexion (L2) 3 Fair Extension (S1) 3 Fair Abduction 4- Good- Adduction 4- Good- External Rotation 3+ Fair+ Internal Rotation 4- Good- Knee Strength Knee Manual Muscle Testing Right Flexion (S2) 4- Good- Extension (L3) 4+ Good+ Left Flexion (S2) 3+ Fair+ Extension (L3) 4 Good Ankle/Foot Strength Ankle and Foot Manual Muscle Testing Right Dorsiflexion (L4) 3 Fair Left Dorsiflexion (L4) 1 Trace PT-OP-Q Treatments Start: 09/11/23 14:15 Freq: Status: Active Protocol: Document 10/31/23 14:33 AB (Rec: 10/31/23 15:15 AB [id number]) Therapeutic Exercises Supine Exercises hip flexor stretches Supine Exercise Name edge of bed Side bilateral Reps/Minutes X2 right X3 left with assist on first trial Comments to improve posture for UE clearance during gait and balance exercises Standing Exercises calf stretches on HOLLY Equipment Used parallel bars, HOLLY Reps/Minutes 60 seconds with knee straight and 60 seconds x3 with knee bent Comments supervision Therapeutic Activity Therapeutic Activity scoot pivot Reps/Minutes X3 left and right Comments CGA to minimal assist, transfers to level or slight incline one UE use throughout, Verbal cues for tech Manual Therapy Treatment Manual Techniques hamstring stretch Reps/Duration one minute X 2 Comments to improve posture for standing prior to balance exercises Neuro Re-Education Treatment Balance Activities Tilt Board Details Lateral, PF/DF Equipment @ rail Comments standing with UE use, X10 X 5 with one to no UE use CGA to minimal assist and seated X 10 PT-OP-T Assessment and Plan Start: 09/11/23 14:15 Freq: Status: Active Protocol: Document 10/31/23 14:33 AB (Rec: 10/31/23 15:15 AB [id number]) Physical Therapy Assessment Goals Three Impairment Pt performs 5 repetitions during 30sStS Kiln Loader Goal (LTG) Pt to increase score on 30sStS by at least three to 8 repetitions with a controlled descent in order to demonstrate an improved tolerance to activity. LTG Duration 12/10/23 One Impairment Pt does not have an appropriate home exercise program Short Term Goal (STG) Pt to be independent and compliant with an appropriate HEP STG Duration 10/10/23 Two Impairment Pt TUG score of 24.5 using 4WW Impairment A gait speed of less than 1.97 ft/sec is indicative of increased likelihood of further functional decline in older adults. Kiln Loader Goal (LTG) Pt to demonstrate decreased TUG score by at least nine and a half seconds for a score of 15 using LRAD to demonstrate improve gait ability and decreased falls risk LTG Duration 12/10/23 Assessment Summary Assessment Chuckie was able to perform pivot transfers with one UE use level surface and slight incline this session, but did fatigue rapidly and rquired to scoots to make it to the chair on final trial. Physical Therapy Plan Frequency and Duration Frequency of Treatment 2x/Week Plan of Care Start Date 09/11/23 Plan of Care End Date 12/10/23 Next Visit Focus/Plan Next Note Type Treatment Note Next Visit Plan next session: pivot transfers one UE use,l LE balance/SLS with one UE use left knee guarded/assist when able to support full body weight, possibly work on turns in parallel bars/ stagger stance sit to pelt inspector clinic 3X10, calf stretches in clinic, light blue band for sidelying clamshell LE strengthening, activity tolerance, balance
--- NOTE | 2023-11-02 11:17 | PT.OTN ---
Current Diagnoses Foot drop, left foot (11/02/23) Unsteadiness on feet (11/02/23) Repeated falls (11/02/23) Weakness (11/02/23) Chronic fatigue, unspecified (11/02/23) Physical Therapy Treatment Note PT-OP-A Visit Information Start: 09/11/23 14:15 Freq: Status: Active Protocol: Document 11/02/23 10:30 DCW (Rec: 11/02/23 11:16 DCW [id number]) Out-Patient Physical Therapy Visit Information Visit Information Visit Type Treatment Note Visit Start Time 10:30 Visit Stop Time 11:15 Visit Number 13 Number of GREEN PLUMBER Visits 0 Evaluation Information Evaluation Date 09/11/23 PT-OP-B Current Condition Start: 09/11/23 14:15 Freq: Status: Active Protocol: Document 09/11/23 12:00 DCW (Rec: 09/11/23 14:27 DCW [id number]) Current Condition History of Current Condition Onset Date Long-standing history Current Complaints Weakness, declining balance, falls, unsteadiness History of Current Condition Pt is an 88 year old male well known to this clinic presenting with complaints of a fairly severe recent decline in balance, LE strength, and functional mobility. Pt was previously seen at this facility, most recently discharged in 09/2022, for these same complaints. Was discharged at that time due to a plateau in progress, but has declined precipitously since then. Currently uses a manual wheelchair for community mobility, has a FWW and 4WW for home use (on different floors to eliminate need to carry walker up/down stairs). Admits he performs minimal walking on a day to day basis, and can't walk at all without a walker. Has fairly strong fear of falling at this point, admits that is falls typically occur during transition movements/transfers trying to use walker to turn and sit. Does have a known left foot drop, which has been an ongoing issue following back surgery. Treatment Goals Patient/Caregiver Goals I want to get up and move around with my cane and not rely on a walker, but maybe that's unrealistic at this point. PT-OP-C Subjective Start: 09/11/23 14:15 Freq: Status: Active Protocol: Document 11/02/23 10:30 DCW (Rec: 11/02/23 11:16 DCW [id number]) OP-PT Subjective Patient Comments Patient Comments About the same. I just don't see any improvement. PT-OP-E Functional Tests Start: 09/11/23 14:15 Freq: Status: Active Protocol: Document 09/11/23 12:00 DCW (Rec: 09/11/23 14:29 DCW [id number]) Functional Tests 30 Second Sit to Stand Test Score x5 repetitions Comments Use of UEs, Back on LEs on table, uncontrolled descent Timed Up and Go (TUG) Score 24.50 with 4WW Comments Three-trial average (25.65, 24 .20, 23.66) PT-OP-G Mobility & Gait Start: 09/11/23 14:15 Freq: Status: Active Protocol: Document 09/11/23 12:00 DCW (Rec: 09/11/23 17:51 DCW [id number]) OP Mobility Evaluation Wheelchair Management Type of Wheelchair Manual Assessment Details Propels with B LEs, B UEs OP Gait Assessment Gait Gait Assistance Required: Contact Guard Assist Assistive Devices Assistive Device Gait Belt,4 Wheeled Walker Comments Gait Comments Decreased stride length, left steppage gait secondary to left foot drop. Poor activity tolerance PT-OP-M Strength Start: 09/11/23 14:15 Freq: Status: Active Protocol: Document 09/11/23 12:00 DCW (Rec: 09/11/23 17:51 DCW [id number]) Hip Strength Hip Manual Muscle Testing Right Flexion (L2) 4- Good- Extension (S1) 4 Good Abduction 4 Good Adduction 4 Good External Rotation 4 Good Internal Rotation 4 Good Left Flexion (L2) 3 Fair Extension (S1) 3 Fair Abduction 4- Good- Adduction 4- Good- External Rotation 3+ Fair+ Internal Rotation 4- Good- Knee Strength Knee Manual Muscle Testing Right Flexion (S2) 4- Good- Extension (L3) 4+ Good+ Left Flexion (S2) 3+ Fair+ Extension (L3) 4 Good Ankle/Foot Strength Ankle and Foot Manual Muscle Testing Right Dorsiflexion (L4) 3 Fair Left Dorsiflexion (L4) 1 Trace PT-OP-Q Treatments Start: 09/11/23 14:15 Freq: Status: Active Protocol: Document 11/02/23 10:30 DCW (Rec: 11/02/23 11:16 DCW [id number]) Gym Equipment Shuttle Recovery Unilateral Squats Details B Resistance 25# (new band) Shuttle Recovery Platform Stable Reps/Time x15 Bilateral Squats Resistance 50# (two new) Shuttle Recovery Platform Stable Reps/Time x12 Neuro Re-Education Treatment Balance Activities Semi-tandem Details Semi-tandem Equipment @ rail Self-Care/Home Management Treatment Activities Self-Care/Home Management Activities Trial of AFO to help stabilize left ankle during transfers and gait. PT-OP-T Assessment and Plan Start: 09/11/23 14:15 Freq: Status: Active Protocol: Document 11/02/23 10:30 DCW (Rec: 11/02/23 11:16 DCW [id number]) Physical Therapy Assessment Impairments Impairments Activity Tolerance,Balance, Functional Activities, Functional Mobility,Gait,ROM, Soft Tissue Mobility,Strength, Tone,Transfers Goals Three Impairment Pt performs 5 repetitions during 30sStS Long-Term Goal (LTG) Pt to increase score on 30sStS by at least three to 8 repetitions with a controlled descent in order to demonstrate an improved tolerance to activity. LTG Duration 12/10/23 One Impairment Pt does not have an appropriate home exercise program Short Term Goal (STG) Pt to be independent and compliant with an appropriate HEP STG Duration 10/10/23 Two Impairment Pt TUG score of 24.5 using 4WW Impairment A gait speed of less than 1.97 ft/sec is indicative of increased likelihood of further functional decline in older adults. Long-Term Goal (LTG) Pt to demonstrate decreased TUG score by at least nine and a half seconds for a score of 15 using LRAD to demonstrate improve gait ability and decreased falls risk LTG Duration 12/10/23 Assessment Summary Assessment Spent a lot of time today discussing possibility of a second spinal surgery for pt, he spoke with his surgeon, but appear to be leaning away from any more surgery, feels recovery would be too rough at his age for questionable benefit. Trial of AFO to help stabilize ankle during gait and transfers, minimal benefit . Physical Therapy Plan Frequency and Duration Frequency of Treatment 2x/Week Plan of Care Start Date 09/11/23 Plan of Care End Date 12/10/23 Therapeutic Interventions Therapeutic Interventions Balance Training,Gait Training ,Home Exercise Program,Joint Mobilizations,Manual Therapy, Neuromuscular Re-education, Patient/Caregiver Education, Self-Care/Home Management,Soft Tissue Mobilization, Therapeutic Activities, Therapeutic Exercises, Wheelchair Management Next Visit Focus/Plan Next Note Type Treatment Note Next Visit Plan next session: pivot transfers one UE use,l LE balance/SLS with one UE use left knee guarded/assist when able to support full body weight, possibly work on turns in parallel bars/ stagger stance sit to rooming house keeper clinic 3X10, calf stretches in clinic, light blue band for sidelying clamshell LE strengthening, activity tolerance, balance
--- NOTE | 2023-11-06 17:16 | PT.OTN ---
Current Diagnoses Foot drop, left foot (11/06/23) Unsteadiness on feet (11/06/23) Repeated falls (11/06/23) Weakness (11/06/23) Chronic fatigue, unspecified (11/06/23) Physical Therapy Treatment Note PT-OP-A Visit Information Start: 09/11/23 14:15 Freq: Status: Active Protocol: Document 11/06/23 14:37 AB (Rec: 11/06/23 17:08 AB [id number]) Out-Patient Physical Therapy Visit Information Visit Information Visit Type Treatment Note Visit Note Access Code: [email or web address] Visit Start Time 14:42 Visit Stop Time 15:16 Visit Number 14 Number of WEB MASTER Visits 1 Evaluation Information Evaluation Date 09/11/23 PT-OP-B Current Condition Start: 09/11/23 14:15 Freq: Status: Active Protocol: Document 09/11/23 12:00 DCW (Rec: 09/11/23 14:27 DCW [id number]) Current Condition History of Current Condition Onset Date Long-standing history Current Complaints Weakness, declining balance, falls, unsteadiness History of Current Condition Pt is an 88 year old male well known to this clinic presenting with complaints of a fairly severe recent decline in balance, LE strength, and functional mobility. Pt was previously seen at this facility, most recently discharged in 09/2022, for these same complaints. Was discharged at that time due to a plateau in progress, but has declined precipitously since then. Currently uses a manual wheelchair for community mobility, has a FWW and 4WW for home use (on different floors to eliminate need to carry walker up/down stairs). Admits he performs minimal walking on a day to day basis, and can't walk at all without a walker. Has fairly strong fear of falling at this point, admits that is falls typically occur during transition movements/transfers trying to use walker to turn and sit. Does have a known left foot drop, which has been an ongoing issue following back surgery. Treatment Goals Patient/Caregiver Goals I want to get up and move around with my cane and not rely on a walker, but maybe that's unrealistic at this point. PT-OP-C Subjective Start: 09/11/23 14:15 Freq: Status: Active Protocol: Document 11/06/23 14:37 AB (Rec: 11/06/23 17:08 AB [id number]) OP-PT Subjective Patient Comments Patient Comments Patient reports he had an episode Monday night, was getting ready for bed when legs felt really weak and had to place more force on the walker to walk, and had to help him to bed. Patient comments the arms also felt weaker. PT-OP-E Functional Tests Start: 09/11/23 14:15 Freq: Status: Active Protocol: Document 09/11/23 12:00 DCW (Rec: 09/11/23 14:29 DCW [id number]) Functional Tests 30 Second Sit to Stand Test Score x5 repetitions Comments Use of UEs, Back on LEs on table, uncontrolled descent Timed Up and Go (TUG) Score 24.50 with 4WW Comments Three-trial average (25.65, 24 .20, 23.66) PT-OP-G Mobility & Gait Start: 09/11/23 14:15 Freq: Status: Active Protocol: Document 09/11/23 12:00 DCW (Rec: 09/11/23 17:51 DCW [id number]) OP Mobility Evaluation Wheelchair Management Type of Wheelchair Manual Assessment Details Propels with B LEs, B UEs OP Gait Assessment Gait Gait Assistance Required: Contact Guard Assist Assistive Devices Assistive Device Gait Belt,4 Wheeled Walker Comments Gait Comments Decreased stride length, left steppage gait secondary to left foot drop. Poor activity tolerance PT-OP-M Strength Start: 09/11/23 14:15 Freq: Status: Active Protocol: Document 09/11/23 12:00 DCW (Rec: 09/11/23 17:51 DCW [id number]) Hip Strength Hip Manual Muscle Testing Right Flexion (L2) 4- Good- Extension (S1) 4 Good Abduction 4 Good Adduction 4 Good External Rotation 4 Good Internal Rotation 4 Good Left Flexion (L2) 3 Fair Extension (S1) 3 Fair Abduction 4- Good- Adduction 4- Good- External Rotation 3+ Fair+ Internal Rotation 4- Good- Knee Strength Knee Manual Muscle Testing Right Flexion (S2) 4- Good- Extension (L3) 4+ Good+ Left Flexion (S2) 3+ Fair+ Extension (L3) 4 Good Ankle/Foot Strength Ankle and Foot Manual Muscle Testing Right Dorsiflexion (L4) 3 Fair Left Dorsiflexion (L4) 1 Trace PT-OP-Q Treatments Start: 09/11/23 14:15 Freq: Status: Active Protocol: Document 11/06/23 14:37 AB (Rec: 11/06/23 17:08 AB [id number]) Therapeutic Exercises Sitting Exercises DF Reps/Minutes X15 post calf stretches Comments Verbal and visual cues Standing Exercises AP weight shift Side bilateral Reps/Minutes X10 x2 Comments with UE support at parallel bars calf stretches on HOLLY Equipment Used parallel bars, HOLLY Reps/Minutes 60 secondsx2 with knee straight and 60 seconds x1with knee bent Comments supervision Therapeutic Activity Therapeutic Activity scoot pivot Reps/Minutes X3 left and right Comments CGA to minimal assist, transfers to level one UE use throughout, Verbal cues for tech Sit Stand Name with UE use on armrests of WC Reps/Minutes X10 Comments stagger stance to left LE retro to increase right LE strength CGA to very minimal assist, VC for hip hinge Neuro Re-Education Treatment Balance Activities Semi-tandem Details Semi-tandem Equipment @ rail Tilt Board Details Lateral, PF/DF Equipment @ rail Reps/Duration 2 min Comments with UE use Foam Details WBOS to shoulder width TYREL Surface AirEx Comments CGA patient's hand above bars using bars as needed Romberg on foam pad Details eye open and eyes closed Equipment foam pad Reps/Duration 1 minute Comments hands above bars, CGA SLS with UE support Details SLS Reps/Duration X10 Comments CGA tactile cues at knee to avoid buckling and hyperextension 160 to 115 lb of force through left LE with UE use Romberg Surface floor Equipment parallel bars PT-OP-T Assessment and Plan Start: 09/11/23 14:15 Freq: Status: Active Protocol: Document 11/06/23 14:37 AB (Rec: 11/06/23 17:08 AB [id number]) Physical Therapy Assessment Goals Three Impairment Pt performs 5 repetitions during 30sStS Care Home Goal (LTG) Pt to increase score on 30sStS by at least three to 8 repetitions with a controlled descent in order to demonstrate an improved tolerance to activity. LTG Duration 12/10/23 One Impairment Pt does not have an appropriate home exercise program Short Term Goal (STG) Pt to be independent and compliant with an appropriate HEP STG Duration 10/10/23 Two Impairment Pt TUG score of 24.5 using 4WW Impairment A gait speed of less than 1.97 ft/sec is indicative of increased likelihood of further functional decline in older adults. Care Home Goal (LTG) Pt to demonstrate decreased TUG score by at least nine and a half seconds for a score of 15 using LRAD to demonstrate improve gait ability and decreased falls risk LTG Duration 12/10/23 Assessment Summary Assessment Therapist late. Left LE continues to fatigue rapidly as seen by decreased weight bearing by 10th repetition of SLS with UE use. Physical Therapy Plan Frequency and Duration Frequency of Treatment 2x/Week Plan of Care Start Date 09/11/23 Plan of Care End Date 12/10/23 Next Visit Focus/Plan Next Note Type Treatment Note Next Visit Plan next session: pivot transfers one UE use,l LE balance/SLS with one UE use left knee guarded/assist when able to support full body weight, possibly work on turns in parallel bars/ stagger stance sit to enterprise integration developer clinic 3X10, calf stretches in clinic, light blue band for sidelying clamshell LE strengthening, activity tolerance, balance
--- NOTE | 2023-11-09 15:33 | PT.OTN ---
Current Diagnoses Foot drop, left foot (11/09/23) Unsteadiness on feet (11/09/23) Repeated falls (11/09/23) Weakness (11/09/23) Chronic fatigue, unspecified (11/09/23) Physical Therapy Treatment Note PT-OP-A Visit Information Start: 09/11/23 14:15 Freq: Status: Active Protocol: Document 11/09/23 13:37 SW (Rec: 11/09/23 15:33 SW [id number]) Out-Patient Physical Therapy Visit Information Visit Information Visit Type Treatment Note Visit Note Access Code: [email or web address] Visit Start Time 14:34 Visit Stop Time 15:14 Visit Number 15 Number of RESIDENTIAL SUBSTANCE ABUSE COUNSELOR Visits 2 PT-OP-B Current Condition Start: 09/11/23 14:15 Freq: Status: Active Protocol: Document 09/11/23 12:00 DCW (Rec: 09/11/23 14:27 DCW [id number]) Current Condition History of Current Condition Onset Date Long-standing history Current Complaints Weakness, declining balance, falls, unsteadiness History of Current Condition Pt is an 88 year old male well known to this clinic presenting with complaints of a fairly severe recent decline in balance, LE strength, and functional mobility. Pt was previously seen at this facility, most recently discharged in 09/2022, for these same complaints. Was discharged at that time due to a plateau in progress, but has declined precipitously since then. Currently uses a manual wheelchair for community mobility, has a FWW and 4WW for home use (on different floors to eliminate need to carry walker up/down stairs). Admits he performs minimal walking on a day to day basis, and can't walk at all without a walker. Has fairly strong fear of falling at this point, admits that is falls typically occur during transition movements/transfers trying to use walker to turn and sit. Does have a known left foot drop, which has been an ongoing issue following back surgery. Treatment Goals Patient/Caregiver Goals I want to get up and move around with my cane and not rely on a walker, but maybe that's unrealistic at this point. PT-OP-C Subjective Start: 09/11/23 14:15 Freq: Status: Active Protocol: Document 11/09/23 13:37 SW (Rec: 11/09/23 15:33 SW [id number]) OP-PT Subjective Patient Comments Patient Comments Pt reports about the same, no other changes to report PT-OP-E Functional Tests Start: 09/11/23 14:15 Freq: Status: Active Protocol: Document 09/11/23 12:00 DCW (Rec: 09/11/23 14:29 DCW [id number]) Functional Tests 30 Second Sit to Stand Test Score x5 repetitions Comments Use of UEs, Back on LEs on table, uncontrolled descent Timed Up and Go (TUG) Score 24.50 with 4WW Comments Three-trial average (25.65, 24 .20, 23.66) PT-OP-G Mobility & Gait Start: 09/11/23 14:15 Freq: Status: Active Protocol: Document 09/11/23 12:00 DCW (Rec: 09/11/23 17:51 DCW [id number]) OP Mobility Evaluation Wheelchair Management Type of Wheelchair Manual Assessment Details Propels with B LEs, B UEs OP Gait Assessment Gait Gait Assistance Required: Contact Guard Assist Assistive Devices Assistive Device Gait Belt,4 Wheeled Walker Comments Gait Comments Decreased stride length, left steppage gait secondary to left foot drop. Poor activity tolerance PT-OP-M Strength Start: 09/11/23 14:15 Freq: Status: Active Protocol: Document 09/11/23 12:00 DCW (Rec: 09/11/23 17:51 DCW [id number]) Hip Strength Hip Manual Muscle Testing Right Flexion (L2) 4- Good- Extension (S1) 4 Good Abduction 4 Good Adduction 4 Good External Rotation 4 Good Internal Rotation 4 Good Left Flexion (L2) 3 Fair Extension (S1) 3 Fair Abduction 4- Good- Adduction 4- Good- External Rotation 3+ Fair+ Internal Rotation 4- Good- Knee Strength Knee Manual Muscle Testing Right Flexion (S2) 4- Good- Extension (L3) 4+ Good+ Left Flexion (S2) 3+ Fair+ Extension (L3) 4 Good Ankle/Foot Strength Ankle and Foot Manual Muscle Testing Right Dorsiflexion (L4) 3 Fair Left Dorsiflexion (L4) 1 Trace PT-OP-Q Treatments Start: 09/11/23 14:15 Freq: Status: Active Protocol: Document 11/09/23 13:37 SW (Rec: 11/09/23 15:33 SW [id number]) Therapeutic Exercises Sitting Exercises DF Reps/Minutes X15 post calf stretches Comments Verbal and visual cues Standing Exercises AP weight shift Side bilateral Reps/Minutes X10 x2 Comments with UE support at parallel bars calf stretches on HOLLY Equipment Used parallel bars, HOLLY Reps/Minutes 60 secondsx2 with knee straight and 60 seconds x1with knee bent Comments supervision Therapeutic Activity Therapeutic Activity Stand Pivot Transfer Name Stand pivot transfer Reps/Minutes multiple reps, various height Comments wc<>mat table, cues for hand/ feet placement and setup Sit Stand Name with UE use on armrests of WC Reps/Minutes X10 Comments stagger stance to left LE retro to increase right LE strength CGA to very minimal assist, VC for hip hinge Neuro Re-Education Treatment Balance Activities Weight Shift Details A/P, lateral WBOS>NBOS Surface Stable Equipment @ rail Comments guarding knee for buckle, CGA Semi-tandem Details Semi-tandem Surface stable Equipment @ rail Foam Details WBOS to shoulder width TYREL Surface AirEx Comments CGA patient's hand above bars using bars as needed SLS with UE support Details SLS Comments CGA, guard for bucking/ hyperextension, CGA JUNIOR GRAPHIC DESIGNER @ rail Romberg Surface floor Equipment @rail PT-OP-T Assessment and Plan Start: 09/11/23 14:15 Freq: Status: Active Protocol: Document 11/09/23 13:37 (Rec: 11/09/23 15:33 [id number]) Physical Therapy Assessment Goals Three Impairment Pt performs 5 repetitions during 30sStS Tyre Builder Goal (LTG) Pt to increase score on 30sStS by at least three to 8 repetitions with a controlled descent in order to demonstrate an improved tolerance to activity. LTG Duration 12/10/23 One Impairment Pt does not have an appropriate home exercise program Short Term Goal (STG) Pt to be independent and compliant with an appropriate HEP STG Duration 10/10/23 Two Impairment Pt TUG score of 24.5 using 4WW Impairment A gait speed of less than 1.97 ft/sec is indicative of increased likelihood of further functional decline in older adults. Tyre Builder Goal (LTG) Pt to demonstrate decreased TUG score by at least nine and a half seconds for a score of 15 using LRAD to demonstrate improve gait ability and decreased falls risk LTG Duration 12/10/23 Assessment Summary Assessment Tx focus on strength and balance. Continued wc transfers, verbal/visual cues for hand and feet placement with transfers, pt quick to fatigue with height variance between mat table to chair. Focus on balance and shift weight in RLE, CGA/JUNIOR GRAPHIC DESIGNER prn, blocking for buckling/ hyperextension, cued patient to TKE during exercises. Physical Therapy Plan Frequency and Duration Frequency of Treatment 2x/Week Plan of Care Start Date 09/11/23 Plan of Care End Date 12/10/23 Therapeutic Interventions Therapeutic Interventions Balance Training,Gait Training ,Home Exercise Program,Joint Mobilizations,Manual Therapy, Neuromuscular Re-education, Patient/Caregiver Education, Self-Care/Home Management,Soft Tissue Mobilization, Therapeutic Activities, Therapeutic Exercises, Wheelchair Management Next Visit Focus/Plan Next Note Type Treatment Note Next Visit Plan next session: pivot transfers one UE use,l LE balance/SLS with one UE use left knee guarded/assist when able to support full body weight, possibly work on turns in parallel bars/ stagger stance sit to clipper machine operator clinic 3X10, calf stretches in clinic, light blue band for sidelying clamshell LE strengthening, activity tolerance, balance
--- NOTE | 2023-11-16 11:24 | PT.OTN ---
Current Diagnoses Foot drop, left foot (11/16/23) Unsteadiness on feet (11/16/23) Repeated falls (11/16/23) Weakness (11/16/23) Chronic fatigue, unspecified (11/16/23) Physical Therapy Treatment Note PT-OP-A Visit Information Start: 09/11/23 14:15 Freq: Status: Active Protocol: Document 11/16/23 10:31 SW (Rec: 11/16/23 11:24 SW [id number]) Out-Patient Physical Therapy Visit Information Visit Information Visit Type Treatment Note Visit Note 02/06 PN Access Code: [email or web address] Visit Start Time 10:31 Visit Stop Time 11:11 Visit Number 16 Number of SQUAD BOSS Visits 3 PT-OP-B Current Condition Start: 09/11/23 14:15 Freq: Status: Active Protocol: Document 09/11/23 12:00 DCW (Rec: 09/11/23 14:27 DCW [id number]) Current Condition History of Current Condition Onset Date Long-standing history Current Complaints Weakness, declining balance, falls, unsteadiness History of Current Condition Pt is an 88 year old male well known to this clinic presenting with complaints of a fairly severe recent decline in balance, LE strength, and functional mobility. Pt was previously seen at this facility, most recently discharged in 09/2022, for these same complaints. Was discharged at that time due to a plateau in progress, but has declined precipitously since then. Currently uses a manual wheelchair for community mobility, has a FWW and 4WW for home use (on different floors to eliminate need to carry walker up/down stairs). Admits he performs minimal walking on a day to day basis, and can't walk at all without a walker. Has fairly strong fear of falling at this point, admits that is falls typically occur during transition movements/transfers trying to use walker to turn and sit. Does have a known left foot drop, which has been an ongoing issue following back surgery. Treatment Goals Patient/Caregiver Goals I want to get up and move around with my cane and not rely on a walker, but maybe that's unrealistic at this point. PT-OP-C Subjective Start: 09/11/23 14:15 Freq: Status: Active Protocol: Document 11/16/23 10:31 SW (Rec: 11/16/23 11:22 SW [id number]) OP-PT Subjective Patient Comments Patient Comments Pt reports weakness is still a problem. Pt reports x2 times where pt has had complete loss of strength on both sides. Strength comes back when sitting for awhile. PT-OP-E Functional Tests Start: 09/11/23 14:15 Freq: Status: Active Protocol: Document 09/11/23 12:00 DCW (Rec: 09/11/23 14:29 DCW [id number]) Functional Tests 30 Second Sit to Stand Test Score x5 repetitions Comments Use of UEs, Back on LEs on table, uncontrolled descent Timed Up and Go (TUG) Score 24.50 with 4WW Comments Three-trial average (25.65, 24 .20, 23.66) PT-OP-G Mobility & Gait Start: 09/11/23 14:15 Freq: Status: Active Protocol: Document 09/11/23 12:00 DCW (Rec: 09/11/23 17:51 DCW [id number]) OP Mobility Evaluation Wheelchair Management Type of Wheelchair Manual Assessment Details Propels with B LEs, B UEs OP Gait Assessment Gait Gait Assistance Required: Contact Guard Assist Assistive Devices Assistive Device Gait Belt,4 Wheeled Walker Comments Gait Comments Decreased stride length, left steppage gait secondary to left foot drop. Poor activity tolerance PT-OP-M Strength Start: 09/11/23 14:15 Freq: Status: Active Protocol: Document 09/11/23 12:00 DCW (Rec: 09/11/23 17:51 DCW [id number]) Hip Strength Hip Manual Muscle Testing Right Flexion (L2) 4- Good- Extension (S1) 4 Good Abduction 4 Good Adduction 4 Good External Rotation 4 Good Internal Rotation 4 Good Left Flexion (L2) 3 Fair Extension (S1) 3 Fair Abduction 4- Good- Adduction 4- Good- External Rotation 3+ Fair+ Internal Rotation 4- Good- Knee Strength Knee Manual Muscle Testing Right Flexion (S2) 4- Good- Extension (L3) 4+ Good+ Left Flexion (S2) 3+ Fair+ Extension (L3) 4 Good Ankle/Foot Strength Ankle and Foot Manual Muscle Testing Right Dorsiflexion (L4) 3 Fair Left Dorsiflexion (L4) 1 Trace PT-OP-Q Treatments Start: 09/11/23 14:15 Freq: Status: Active Protocol: Document 11/16/23 10:31 (Rec: 11/16/23 11:22 [id number]) Gym Equipment Shuttle Recovery Unilateral Squats Details B Resistance 25# (new band) Reps/Time 2x10 Bilateral Squats Resistance 50# (two new) Shuttle Recovery Platform Stable Reps/Time x12 Therapeutic Exercises Sitting Exercises Calf Stretch Sitting Exercise Name 1. gastroc 2. soleus Side bilateral DF Reps/Minutes X15 post calf stretches Comments Verbal and visual cues Therapeutic Activity Therapeutic Activity Stand Pivot Transfer Name Stand pivot transfer Comments verbal cue for hand placement during transfers Neuro Re-Education Treatment Balance Activities Semi-tandem Details Semi-tandem Surface stable Equipment @ rail Tilt Board Details Lateral, PF/DF Equipment @ rail Reps/Duration 2 min Comments with UE use Foam Details WBOS to shoulder width TYREL Surface AirEx Comments CGA patient's hand above bars using bars as needed PT-OP-T Assessment and Plan Start: 09/11/23 14:15 Freq: Status: Active Protocol: Document 11/16/23 10:31 (Rec: 11/16/23 11:22 [id number]) Physical Therapy Assessment Goals Three Impairment Pt performs 5 repetitions during 30sStS Brineyard Supervisor Goal (LTG) Pt to increase score on 30sStS by at least three to 8 repetitions with a controlled descent in order to demonstrate an improved tolerance to activity. LTG Duration 12/10/23 One Impairment Pt does not have an appropriate home exercise program Short Term Goal (STG) Pt to be independent and compliant with an appropriate HEP STG Duration 10/10/23 Two Impairment Pt TUG score of 24.5 using 4WW Impairment A gait speed of less than 1.97 ft/sec is indicative of increased likelihood of further functional decline in older adults. Brineyard Supervisor Goal (LTG) Pt to demonstrate decreased TUG score by at least nine and a half seconds for a score of 15 using LRAD to demonstrate improve gait ability and decreased falls risk LTG Duration 12/10/23 Assessment Summary Assessment Verbal cues during balance for decreased CIO as able to increase challenge balance system. Pt reports nausea during balance activities, pt going to PCP later today for checkup, pt plans to followup with primary on nausea and bilateral LE weakness. Pt required extended rest breaks throughout session d/t nausea during balance and fatigue. Physical Therapy Plan Frequency and Duration Frequency of Treatment 2x/Week Plan of Care Start Date 09/11/23 Plan of Care End Date 12/10/23 Therapeutic Interventions Therapeutic Interventions Balance Training,Gait Training ,Home Exercise Program,Joint Mobilizations,Manual Therapy, Neuromuscular Re-education, Patient/Caregiver Education, Self-Care/Home Management,Soft Tissue Mobilization, Therapeutic Activities, Therapeutic Exercises, Wheelchair Management Next Visit Focus/Plan Next Note Type Treatment Note Next Visit Plan next session: pivot transfers one UE use,l LE balance/SLS with one UE use left knee guarded/assist when able to support full body weight, possibly work on turns in parallel bars/ stagger stance sit to instrument and controls technician clinic 3X10, calf stretches in clinic, light blue band for sidelying clamshell LE strengthening, activity tolerance, balance
--- NOTE | 2023-11-21 11:56 | PT.OTN ---
Current Diagnoses Foot drop, left foot (11/21/23) Unsteadiness on feet (11/21/23) Repeated falls (11/21/23) Weakness (11/21/23) Chronic fatigue, unspecified (11/21/23) Physical Therapy Treatment Note PT-OP-A Visit Information Start: 09/11/23 14:15 Freq: Status: Active Protocol: Document 11/21/23 11:15 DCW (Rec: 11/21/23 11:55 DCW [id number]) Out-Patient Physical Therapy Visit Information Visit Information Visit Type Discharge Summary Visit Start Time 11:15 Visit Stop Time 11:50 Visit Number 17 Number of SCHOOL CHILDCARE ATTENDANT Visits 0 PT-OP-B Current Condition Start: 09/11/23 14:15 Freq: Status: Active Protocol: Document 09/11/23 12:00 DCW (Rec: 09/11/23 14:27 DCW [id number]) Current Condition History of Current Condition Onset Date Long-standing history Current Complaints Weakness, declining balance, falls, unsteadiness History of Current Condition Pt is an 88 year old male well known to this clinic presenting with complaints of a fairly severe recent decline in balance, LE strength, and functional mobility. Pt was previously seen at this facility, most recently discharged in 09/2022, for these same complaints. Was discharged at that time due to a plateau in progress, but has declined precipitously since then. Currently uses a manual wheelchair for community mobility, has a FWW and 4WW for home use (on different floors to eliminate need to carry walker up/down stairs). Admits he performs minimal walking on a day to day basis, and can't walk at all without a walker. Has fairly strong fear of falling at this point, admits that is falls typically occur during transition movements/transfers trying to use walker to turn and sit. Does have a known left foot drop, which has been an ongoing issue following back surgery. Treatment Goals Patient/Caregiver Goals I want to get up and move around with my cane and not rely on a walker, but maybe that's unrealistic at this point. PT-OP-C Subjective Start: 09/11/23 14:15 Freq: Status: Active Protocol: Document 11/21/23 11:15 DCW (Rec: 11/21/23 11:55 DCW [id number]) OP-PT Subjective Patient Comments Patient Comments Pt reports he had a CT scan at the request of his PCP, heard from radiology this morning, per pt, reports no lumbar changes, but there is significant stenosis. Admits he doesn't feel like there has been any change at all. If anything, I might be having a more difficulty time geting around. PT-OP-E Functional Tests Start: 09/11/23 14:15 Freq: Status: Active Protocol: Document 11/21/23 11:15 DCW (Rec: 11/21/23 11:56 DCW [id number]) Functional Tests 30 Second Sit to Stand Test Score x5 repetitions Comments Use of UEs, Back on LEs on table, uncontrolled descent Timed Up and Go (TUG) Score 30.17 with 4WW Comments Three-trial average (31.25, 29 .14, 30.13) PT-OP-G Mobility & Gait Start: 09/11/23 14:15 Freq: Status: Active Protocol: Document 09/11/23 12:00 DCW (Rec: 09/11/23 17:51 DCW [id number]) OP Mobility Evaluation Wheelchair Management Type of Wheelchair Manual Assessment Details Propels with B LEs, B UEs OP Gait Assessment Gait Gait Assistance Required: Contact Guard Assist Assistive Devices Assistive Device Gait Belt,4 Wheeled Walker Comments Gait Comments Decreased stride length, left steppage gait secondary to left foot drop. Poor activity tolerance PT-OP-M Strength Start: 09/11/23 14:15 Freq: Status: Active Protocol: Document 09/11/23 12:00 DCW (Rec: 09/11/23 17:51 DCW [id number]) Hip Strength Hip Manual Muscle Testing Right Flexion (L2) 4- Good- Extension (S1) 4 Good Abduction 4 Good Adduction 4 Good External Rotation 4 Good Internal Rotation 4 Good Left Flexion (L2) 3 Fair Extension (S1) 3 Fair Abduction 4- Good- Adduction 4- Good- External Rotation 3+ Fair+ Internal Rotation 4- Good- Knee Strength Knee Manual Muscle Testing Right Flexion (S2) 4- Good- Extension (L3) 4+ Good+ Left Flexion (S2) 3+ Fair+ Extension (L3) 4 Good Ankle/Foot Strength Ankle and Foot Manual Muscle Testing Right Dorsiflexion (L4) 3 Fair Left Dorsiflexion (L4) 1 Trace PT-OP-Q Treatments Start: 09/11/23 14:15 Freq: Status: Active Protocol: Document 11/21/23 11:15 DCW (Rec: 11/21/23 11:55 DCW [id number]) Cardio Equipment Recumbent Elliptical (Biodex) Duration (Minutes) 5 Resistance 5 Seat Position 9 Other BUE/ BLEs, 35-40 RPMs, Therapeutic Activity Therapeutic Activity Stand Pivot Transfer Name Stand pivot transfer Comments verbal cue for hand placement during transfers Neuro Re-Education Treatment Other Activities Testing Comments 30 sec StS, TUG PT-OP-T Assessment and Plan Start: 09/11/23 14:15 Freq: Status: Active Protocol: Document 11/21/23 11:15 DCW (Rec: 11/21/23 11:55 DCW [id number]) Physical Therapy Assessment Goals Three Impairment Pt performs 5 repetitions during 30sStS Halfway Goal (LTG) Pt to increase score on 30sStS by at least three to 8 repetitions with a controlled descent in order to demonstrate an improved tolerance to activity. LTG Duration Unchanged One Impairment Pt does not have an appropriate home exercise program Short Term Goal (STG) Pt to be independent and compliant with an appropriate HEP STG Duration 10/10/23 Two Impairment Pt TUG score of 24.5 using 4WW Emergency Service Restorer Goal (LTG) Pt to demonstrate decreased TUG score by at least nine and a half seconds for a score of 15 using LRAD to demonstrate improve gait ability and decreased falls risk LTG Duration Decline Assessment Summary Assessment Pt has not progressed since initial evaluation, TUG score actually 6 seconds worse. Pt struggling with declining functional mobility, worsening fatigue. At this time, recommend discharge from skilled therapy and return to PCP to determine next step. Physical Therapy Plan Frequency and Duration Frequency of Treatment 2x/Week Plan of Care Start Date 09/11/23 Plan of Care End Date 12/10/23 Therapeutic Interventions Therapeutic Interventions Balance Training,Gait Training ,Home Exercise Program,Joint Mobilizations,Manual Therapy, Neuromuscular Re-education, Patient/Caregiver Education, Self-Care/Home Management,Soft Tissue Mobilization, Therapeutic Activities, Therapeutic Exercises, Wheelchair Management Discharge Physical Therapy Discharge Reasons Plateau in Progress Next Visit Focus/Plan Next Note Type Discharge Summary
== END 2023-11-30 12:02 | disposition home or self-care (01) ==
LOC: PHYS 11:15
PROVIDERS: Family Provider Internal Medicine; PCP Internal Medicine; Referring Provider Internal Medicine; Visit Provider Internal Medicine
DX: R26.81 Unsteadiness on feet (principal); R53.1 Weakness; R53.82 Chronic fatigue, unspecified; M21.372 Foot drop, left foot; R29.6 Repeated falls
CPT/HCPCS: 97110; 97112; 97163; 97530; 97535

== ENCOUNTER → 2024-06-14 08:04 | Outpatient (CLI) | payer MEDICARE, OTHER, SELFPAY ==
[2022-01-18 15:17] VITALS: BMI 25.8
[2024-06-14 09:14] LABS: Add Manual Diff / Slide Review NO; Basophils Absolute Auto 100 /uL (0-100); Basophils Percent Auto 0.9 % (0-2); Eosinophils Absolute Auto 300 /uL (0-450); Eosinophils Percent Auto 5.1 % (2-4); Hematocrit 41.6 % (41-53); Lymphocytes Absolute Auto 1800 /uL (1100-4500); Lymphocytes Percent Auto 28.8 % (25-40); Mean Corpuscular HGB Conc 33.7 % (30-36); Mean Corpuscular Volume 97.9 fL (80-100); Monocytes Absolute Auto 600 /uL (0-900); Neutrophils Absolute Auto 3500 /uL (1500-7000); Neutrophils Percent Auto 55.2 % (50-75); Platelet Count 204 X10^3/uL (150-400); Red Blood Cell Count 4.25 X10^6/uL (4.5-5.9); Red Cell Distribution Width 13.6 % (11.6-14.8); White Blood Cell Count 6.3 X10^3/uL (4.5-11.0)
[2024-06-14 09:28] LABS: Alanine Aminotransferase 33 IU/L (<50); Albumin Globulin Ratio 1.4 (1.0-2.8); Alkaline Phosphatase 91 U/L (38-126); Aspartate Aminotransferase 39 IU/L (17-59); Bilirubin Total 0.6 mg/dL (0.2-1.3); Calcium 9.1 mg/dL (8.4-10.2); Carbon Dioxide 24 mmol/L (22-32); Chloride 106 mmol/L (98-107); Cholesterol 178 mg/dL (140-199); Globulin 2.8 g/dL (1.7-4.1); Glucose 93 mg/dL (80-110); HDL Cholesterol 42 mg/dL (40-60); HEMOLYSIS < 15 (0-50); LDL Cholesterol Calculated 103 mg/dL (<100); Potassium 4.3 mmol/L (3.4-5.1); Sodium 139 mmol/L (137-145); Total Protein 6.8 g/dL (6.3-8.2); Triglycerides 163 mg/dL (35-150)
[2024-06-14 09:29] LABS: BUN Creatinine Ratio 29.3 (6-22); Blood Urea Nitrogen 24 mg/dL (9-20); Estimated Glomerular Filt Rate > 60 mL/min (>60)
== END ==
LOC: LAB 08:05
PROVIDERS: Family Provider Internal Medicine; PCP Internal Medicine; Referring Provider Internal Medicine; Visit Provider Internal Medicine
DX: I10 Essential (primary) hypertension (principal); I25.10 Atherosclerotic heart disease of native coronary artery without angina pectoris; E78.5 Hyperlipidemia, unspecified
CPT/HCPCS: 36415; 80053; 80061; 85025

== ENCOUNTER → 2024-12-10 08:18 | Outpatient (CLI) | payer MEDICARE, OTHER, SELFPAY ==
[2022-01-18 15:17] VITALS: BMI 25.8
[2024-12-10 09:23] LABS: Add Manual Diff / Slide Review NO; Basophils Absolute Auto 0 /uL (0-100); Basophils Percent Auto 0.4 % (0-2); Eosinophils Absolute Auto 100 /uL (0-450); Eosinophils Percent Auto 2.6 % (2-4); Lymphocytes Absolute Auto 1600 /uL (1100-4500); Lymphocytes Percent Auto 29.4 % (25-40); Mean Corpuscular HGB Conc 34.2 % (30-36); Mean Corpuscular Hemoglobin 33.7 PG (26-34); Mean Corpuscular Volume 98.5 fL (80-100); Monocytes Absolute Auto 500 /uL (0-900); Monocytes Percent Auto 9.8 % (3-14); Neutrophils Absolute Auto 3100 /uL (1500-7000); Neutrophils Percent Auto 57.8 % (50-75); Platelet Count 201 X10^3/uL (150-400); Red Blood Cell Count 4.16 X10^6/uL (4.5-5.9); Red Cell Distribution Width 14.1 % (11.6-14.8); White Blood Cell Count 5.3 X10^3/uL (4.5-11.0)
[2024-12-10 09:32] LABS: Alanine Aminotransferase 47 IU/L (<50); Albumin 4.1 g/dL (3.5-5.0); Albumin Globulin Ratio 1.5 (1.0-2.8); Alkaline Phosphatase 86 U/L (38-126); Aspartate Aminotransferase 44 IU/L (17-59); Bilirubin Total 0.6 mg/dL (0.2-1.3); Blood Urea Nitrogen 30 mg/dL (9-20); Calcium 9.2 mg/dL (8.4-10.2); Carbon Dioxide 23 mmol/L (22-32); Chloride 111 mmol/L (98-107); Cholesterol 185 mg/dL (140-199); Estimated Glomerular Filt Rate > 60 mL/min (>60); Globulin 2.8 g/dL (1.7-4.1); Glucose 91 mg/dL (70-99); HDL Cholesterol 42 mg/dL (40-60); HEMOLYSIS < 15 (0-50); LDL Cholesterol Calculated 109 mg/dL (<100); Potassium 4.8 mmol/L (3.4-5.1); Sodium 143 mmol/L (137-145); Total Protein 6.9 g/dL (6.3-8.2); Triglycerides 168 mg/dL (35-150)
== END ==
PROVIDERS: Family Provider Internal Medicine; PCP Internal Medicine; Referring Provider Ophthalmology; Visit Provider Ophthalmology
DX: H02.209 Unspecified lagophthalmos unspecified eye, unspecified eyelid (principal); I10 Essential (primary) hypertension; E78.5 Hyperlipidemia, unspecified; D64.9 Anemia, unspecified
CPT/HCPCS: 36415; 80053; 80061; 85025

== ENCOUNTER → 2024-12-12 09:36 | Outpatient (CLI) | payer MEDICARE, OTHER, SELFPAY ==
[2022-01-18 15:17] VITALS: BMI 25.8
--- NOTE | 2024-12-12 09:40 | DI.CT.S_ITS ---
PROCEDURE: CT ORBIT BI WO/W CON INDICATIONS: Lagophthalmos/alternating exotropia TECHNIQUE: Precontrast images were performed by the request of the referring physician. After the administration of intravenous contrast, 2.5 mm axial images acquired through the orbits, with coronal and sagittal reformats. For radiation dose reduction, the following was used: automated exposure control, adjustment of mA and/or kV according to patient size. COMPARISON: Outside Facility, RG, CT HEAD WITH CONTRAST, 10/06/2016, 13:17. FINDINGS: Image quality: There is artifact associated with the metallic hardware. Artifact from the metallic hardware is reduced by metal reconstruction algorithm. Orbits: There is a right eyelid weight present. Globes are symmetrical. Bilateral moderate exophthalmos can be seen. The optic nerves are normal in size and enhancement. No retrobulbar masses or fat abnormalities. The extra-ocular muscles are normal and symmetrical in appearance. Lacrimal glands are normal. Optic chiasm is normal. Periorbital soft tissues are normal. Intracranial: The pituitary gland is normal, without sellar or suprasellar masses. Visualized cerebral hemispheres, brainstem, and spinal cord appear normal. Bones and sinuses: There is chronic irregularity seen involving the right aspect of the calvarium, as on series 3, image 46. This is similar to 2017. Visualized calvarium and facial bones appear intact. Visualized sinuses and mastoids are clear. 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 No associated masses or abnormal enhancement can be seen. The extraocular muscles demonstrate a normal, symmetric appearance. There is chronic irregularity seen involving the right aspect of the calvarium, which is similar to 2017. Please correlate with prior history of trauma or surgery at this site. There is a right eyelid weight present. Dictated by: Omid Turner M.D. on 12/12/2024 at 16:28 Approved by: Omid Turner M.D. on 12/12/2024 at 16:41
== END ==
LOC: CT 09:39
PROVIDERS: Family Provider Internal Medicine; PCP Internal Medicine; Referring Provider Ophthalmology; Visit Provider Ophthalmology
DX: H02.209 Unspecified lagophthalmos unspecified eye, unspecified eyelid (principal); H05.20 Unspecified exophthalmos; H50.15 Alternating exotropia
CPT/HCPCS: 70482; Q9967

== ENCOUNTER 2025-04-07 10:33 | Emergency (ER) | payer MEDICARE, OTHER, SELFPAY ==
[2022-01-18 15:17] VITALS: BMI 25.8
[2025-04-07] VITALS (21 sets, daily range): BP systolic 137–164; BP diastolic 56–77; PULSE 56–69; RESP 10–20; TEMP 35.7–36.5; O2SAT 94–100; BMI 25.8
--- NOTE | 2025-04-07 10:46 | EKG_ITS ---
[address] [address] Test Date: 2025-04-07 Pat Name: Chuckie Ryder Department: Room: Gender: Male Assistant Cook: STEVE : 1935 Requested By: Order Number: [id number] Reading MD: Blake Ballesteros Measurements Intervals [place] Rate: 60 P: 97 NH: 200 QRS: -13 QRSD: 72 T: 14 QT: 402 QTc: 402 Interpretive Statements NSR Minimal voltage criteria for LVH, may be normal variant ( R in aVL ) Electronically Signed On 04-07-2025 13:47:03 PDT by Blake Ballesteros
--- NOTE | 2025-04-07 10:47 | EKG_ITS ---
[address] [address] Test Date: 2025-04-07 Pat Name: Chuckie Ryder Department: Room: Gender: Male [place]: STEVE : 1935 Requested By: Order Number: [id number] Reading MD: Blake Ballesteros Measurements Intervals [place] Rate: 60 P: 20 MS: 202 QRS: -13 QRSD: 72 T: 15 QT: 406 QTc: 406 Interpretive Statements Atrial-paced rhythm Minimal voltage criteria for LVH, may be normal variant ( R in aVL ) Electronically Signed On 04-07-2025 13:54:32 PDT by Blake Ballesteros
--- NOTE | 2025-04-07 11:21 | DI.RAD.S_ITS ---
PROCEDURE: XR CHEST 1V INDICATIONS: chest pain TECHNIQUE: One view of the chest was acquired. COMPARISON: [facility], , XR CHEST 1V, 04/14/2022, 1:08. FINDINGS: Surgical changes and devices: Left chest wall pacemaker leads are in the region of right atrium and right ventricle. Lungs and pleura: No definite focal infiltrate. No pleural effusions or pneumothorax. Mediastinum: Mildly tortuous thoracic aorta. Heart size is enlarged. Bones and chest wall: No suspicious bony lesions. Overlying soft tissues appear unremarkable. IMPRESSION: No acute cardiopulmonary pathology. Dictated by: Sandoval Encarnacion M.D. on 04/07/2025 at 11:42 Approved by: Sandoval Encarnacion M.D. on 04/07/2025 at 11:43
[2025-04-07 11:33] LABS: Add Manual Diff / Slide Review NO; Hematocrit 39.4 % (41-53); Hemoglobin 13.0 g/dL (13.5-17.5); Lymphocytes Absolute Auto 2200 /uL (1100-4500); Mean Corpuscular HGB Conc 33.1 % (30-36); Mean Corpuscular Hemoglobin 33.1 PG (26-34); Mean Corpuscular Volume 99.9 fL (80-100); Platelet Count 187 X10^3/uL (150-400)
--- NOTE | 2025-04-07 11:33 | PC.NURSE ---
Patient reports feeling funny. This RN asks patient to describe and he reports funny feeling in throat. Initially states some difficulty swallowing, but upon asking again, denies any throat tightness. Provider Amina made aware and goes to bedside to see patient. Breathing is even and unlabored at this time. No facial swelling or hives noted.
--- NOTE | 2025-04-07 11:37 | DI.CT.S_ITS ---
PROCEDURE: CT HEAD/BRAIN WO CON INDICATIONS: syncope on eliquis TECHNIQUE: Noncontrast 4.5 mm thick angled axial sections acquired from the foramen magnum to the vertex, with coronal and sagittal reformats. For radiation dose reduction, the following was used: automated exposure control, adjustment of mA and/or kV according to patient size. COMPARISON: [facility], CT, CT HEAD/BRAIN WO CON, 01/15/2023, 19:07. FINDINGS: Image quality: Diagnostic. CSF spaces: Basal cisterns are patent. No extra-axial fluid collections. The ventricles are symmetric in size and shape. Brain: No intracranial bleeds or mass effect. There is cerebral volume loss, with resultant ventricular and sulcal prominence. There are periventricular and deep white matter chronic small vessel ischemic changes. There is intracranial internal carotid artery atherosclerosis. Skull and face: Calvarium and visualized facial bones appear intact, without suspicious lesions. Sinuses: Visualized sinuses and mastoids are clear. IMPRESSION: No acute intracranial pathology. Dictated by: Sandoval Encarnacion M.D. on 04/07/2025 at 12:13 Approved by: Sandoval Encarnacion M.D. on 04/07/2025 at 12:14
--- NOTE | 2025-04-07 11:37 | DI.CT.S_ITS ---
PROCEDURE: CT ABDOMEN PELVIS W CON INDICATIONS: ab pain syncope TECHNIQUE: After the administration of intravenous contrast, axial sections acquired from the lung bases to the pubic symphysis. Coronal and sagittal reformats were performed. For radiation dose reduction, the following was used: automated exposure control, adjustment of mA and/or kV according to patient size. COMPARISON: [facility], CT, CT ABDOMEN PELVIS W CON, 10/14/2018, 12:39. FINDINGS: Image quality: Diagnostic. Lower Chest: Bibasilar scarring/atelectasis is seen. Heart size is enlarged, pacemaker leads are noted. No pericardial effusion. ABDOMEN: Liver: No solid mass. Gallbladder: No radiopaque gallstones or wall thickening. Biliary ducts: No biliary dilation. Pancreas: No ductal dilation. Spleen: Size is within normal limits. Adrenal Glands: No adrenal nodules. Kidneys and Ureters: No hydronephrosis. No solid mass. Large bilateral simple appearing renal cysts are seen. No complex renal cystic lesion which requires follow up. Stomach and Bowel: Normal colonic caliber, without significant wall thickening. Appendix is visualized in right lower quadrant and is within normal limits. Extensive sigmoid diverticulosis with suggestion of descending colon and sigmoid colon wall thickening. No significant mesenteric fat stranding. No abscess collection. Peritoneum: No abnormal intraperitoneal fluid. No free air. Ventral Wall: No significant ventral hernia. Abdominal Nodes: No retroperitoneal or mesenteric adenopathy by size criteria. Vessels: Aorta and inferior vena cava are normal in size. PELVIS: Pelvic Organs: Enlarged prostate gland with mild mass effect on floor of urinary bladder.. Bladder: No bladder wall thickening, accounting for underdistention. Pelvic Nodes: No enlarged lymph nodes. Miscellaneous: No inguinal hernias are seen. Bones: No aggressive osseous abnormality. Extensive postsurgical changes are noted in mid to lower lumbar spine. No acute vertebral body compression fracture. IMPRESSION: 1. Normal appendix. No bowel obstruction. Extensive sigmoid diverticulosis. Suggestion of low-grade colitis with diffuse colonic wall thickening. Superimposed proximal sigmoid diverticulosis cannot be entirely excluded. No abscess collection. No free fluid or free air. 2. No obstructing renal stones or hydronephrosis. Enlarged prostate gland. Normal appearing urinary bladder. Simple appearing bilateral renal cysts. Dictated by: Sandoval Encarnacion M.D. on 04/07/2025 at 12:10 Approved by: Sandoval Encarnacion M.D. on 04/07/2025 at 12:13
--- NOTE | 2025-04-07 11:39 | ED.CHESTPAIN ---
HPI - Chest Pain General Chief Complaint: Chest Pain Stated Complaint: Syncopal Time Seen by Provider: 04/07/25 11:21 Source: patient Mode of arrival: EMS History of Present Illness HPI narrative: Patient is a 89-year-old male history of syncope peripheral arterial disease, coronary artery disease with pacemaker sick sinus syndrome, presenting today with a syncopal episode. Patient reports that he has previously passed out on the commode however he got a pacemaker and has not happened since then. He thinks his pacemaker was placed in 2018 he is not sure what kind he has. Today he was having a little bit of abdominal discomfort he went to the bathroom had little bit of diarrhea and was told he passed out. His called 911. He did not hit his head or lose consciousness EMS lowered him to the floor. He is on Eliquis that he is not sure why. He is currently in sinus rhythm. He has no complaints now. He no longer has a abdominal pain no nausea vomiting no numbness tingling weakness. He is not having any chest pain or palpitations. Related Data Home Medications ?Medication ?Instructions ?Recorded ?Confirmed losartan 100 mg tablet 100 mg PO DAILY 03/02/18 03/21/25 metoprolol succinate 25 mg 25 mg PO DAILY 12/14/20 03/21/25 tablet,extended release 24 hr apixaban 5 mg tablet (Eliquis) 2.5 mg PO BID 04/26/21 03/21/25 acetaminophen 325 mg capsule 650 mg PO BEDTIME Pain 03/21/25 03/21/25 (Tylenol) Previous Rx's ?Medication ?Instructions ?Recorded wheelchair #1 ea 07/17/23 pravastatin 40 mg tablet 40 mg PO BEDTIME #90 tabs 12/20/23 gabapentin 400 mg capsule See Rx Instructions PO .COMPLEX 01/29/24 #270 caps Disabled Parking #1 ea 12/16/24 omeprazole 40 mg capsule,delayed 40 mg PO BID #60 caps 03/21/25 release Allergies Allergy/AdvReac Type Severity Reaction Status Date / Time alprazolam (From Xanax) AdvReac Severe Passed Out Verified 04/07/25 11:15 oxycodone AdvReac Severe Passed Out Verified 04/07/25 11:15 Patient History Medical History Hidden penis COVID-19 (~12/2021) Peripheral vascular disease Syncope PAD (peripheral artery disease) Neuropathy CVA (cerebral vascular accident) (2015) Spondylolisthesis at L4-L5 level Acromioclavicular joint separation, type 2 Rotator cuff impingement syndrome of right shoulder Facet arthropathy, lumbar Gait instability Foraminal stenosis of lumbosacral region Spinal stenosis of lumbar region without neurogenic claudication Lumbar post-laminectomy syndrome Cervical stenosis of spinal canal Lumbosacral spondylosis Vision disorder Squamous cell skin cancer (~2015) Osteoarthritis Chronic back pain Mumps Measles Vertigo (~2013) Colon polyps (~2010) Skin cancer CAD (coronary artery disease) (~2007) Sick sinus syndrome Spinal stenosis Hypertension (~2016) Peripheral neuropathy (~1979) Hyperlipidemia H/O: stroke (04/10/16) Surgical History History of surgery (1952) History of vasectomy History of surgery (2007) History of lumbar laminectomy (1952) History of lumbar laminectomy (1988) Hx of bilateral cataract extraction 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 Mother No problems noted. Brother Diabetes mellitus Hypertension Hyperlipidemia Grandfather No problems noted. 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 travel history: other leisure activities: music and other Smoking Status: Never smoker Tobacco: How many years used: 10 Smokeless tobacco user: other quit status: quit date established alcohol intake: current substance use type: does not use Smoking Status: Never smoker alcohol intake frequency: a few times a month Exam Initial Vital Signs Initial Vital Signs: Vital Signs Temperature 97.7 F 04/07/25 11:15 Pulse Rate 66 04/07/25 11:15 Respiratory Rate 20 04/07/25 11:15 Blood Pressure 148/63 H 04/07/25 11:15 Pulse Oximetry 98 04/07/25 11:15 Oxygen Delivery Method Room Air 04/07/25 11:15 GENERAL: Alert pleasant 89-year-old and in no acute distress. HEENT: Head atraumatic,EOMI, pupils reactive, face symmetric, moist mucous membranes CARDIOVASCULAR: Regular rate and rhythm without murmurs, rubs or gallops. RESPIRATORY: Breath sounds equal bilaterally, no wheezes rales or rhonchi. ABDOMEN: Soft, nontender. Normoactive bowel sounds all 4 quadrants. No guarding or rebound. EXTREMITIES: Normal range of motion, no clubbing or edema. Neurovascularly intact NEUROLOGICAL: Alert and oriented x4.Normal gait and speech. Cranial nerves II through XII grossly intact. SKIN: Warm, dry, no laceration, no petechiae, no rashes or lesions. Course Orders Ordered: ED Orders 04/07/25 10:30 Complete Blood Count AUTO DIFF Stat Comprehensive Metabolic Panel Stat Lipase Stat NT-proBNP (BNP-Adult 18+) Stat Troponin & CK Cardiac Panel Stat 04/07/25 10:47 EKG-12 Lead Routine 04/07/25 11:21 XR chest 1V Stat 04/07/25 11:37 CT abdomen pelvis w con Stat CT head/brain wo con Stat 04/07/25 12:27 EKG-12 Lead Stat 04/07/25 12:32 EKG-12 Lead Routine 04/07/25 12:42 Troponin I Stat Vital Signs Vital signs: Vital Signs - 8 hr 04/07/25 11:15 04/07/25 11:17 04/07/25 11:17 Temperature 97.7 F Pulse Rate 66 56 L Respiratory Rate 20 Blood Pressure 148/63 H 141/63 H Pulse Oximetry 98 95 Oxygen Delivery Method Room Air 04/07/25 11:22 04/07/25 11:22 04/07/25 11:30 Temperature Pulse Rate 61 61 Respiratory Rate Blood Pressure 137/62 Pulse Oximetry 98 97 Oxygen Delivery Method 04/07/25 11:31 04/07/25 11:31 04/07/25 11:45 Temperature Pulse Rate 62 60 Respiratory Rate Blood Pressure 145/64 H Pulse Oximetry 98 97 Oxygen Delivery Method 04/07/25 11:45 04/07/25 12:05 04/07/25 12:06 Temperature Pulse Rate 69 62 Respiratory Rate Blood Pressure 145/56 H Pulse Oximetry 95 99 Oxygen Delivery Method 04/07/25 12:06 04/07/25 12:15 04/07/25 12:15 Temperature Pulse Rate 60 Respiratory Rate Blood Pressure 157/67 H 151/68 H Pulse Oximetry 100 Oxygen Delivery Method 04/07/25 12:30 04/07/25 12:30 04/07/25 12:45 Temperature Pulse Rate 61 67 Respiratory Rate 12 Blood Pressure 141/66 H Pulse Oximetry 99 100 Oxygen Delivery Method Room Air Room Air 04/07/25 12:45 04/07/25 13:00 04/07/25 13:01 Temperature Pulse Rate 60 Respiratory Rate Blood Pressure 150/67 H 161/74 H Pulse Oximetry 100 Oxygen Delivery Method 04/07/25 13:01 04/07/25 13:15 04/07/25 13:15 Temperature Pulse Rate 60 60 Respiratory Rate Blood Pressure 160/72 H Pulse Oximetry 100 100 Oxygen Delivery Method Room Air 04/07/25 13:30 04/07/25 13:30 04/07/25 13:51 Temperature Pulse Rate 62 69 Respiratory Rate 13 12 Blood Pressure 154/70 H Pulse Oximetry 100 Oxygen Delivery Method 04/07/25 13:51 04/07/25 14:00 04/07/25 14:00 Temperature Pulse Rate 60 Respiratory Rate 15 Blood Pressure 164/77 H 143/76 H Pulse Oximetry 94 99 Oxygen Delivery Method Room Air 04/07/25 14:15 04/07/25 14:15 04/07/25 14:30 Temperature Pulse Rate 60 60 Respiratory Rate 10 L 17 Blood Pressure 162/72 H Pulse Oximetry 99 100 Oxygen Delivery Method 04/07/25 14:30 04/07/25 15:00 04/07/25 15:01 Temperature 96.3 F L Pulse Rate 68 64 Respiratory Rate 16 14 Blood Pressure 148/58 H 148/58 H Pulse Oximetry 99 Oxygen Delivery Method Room Air MDM - Chest Pain Lab Data 04/07/25 10:30 04/07/25 10:30 Labs: Lab Results 04/07/25 04/07/25 Range/Units 10:30 12:42 WBC 7.4 (4.5-11.0) X10^3/uL RBC 3.94 L (4.5-5.9) X10^6/uL Hgb 13.0 L (13.5-17.5) g/dL Hct 39.4 L (41-53) % MCV 99.9 (80-100) fL MCH 33.1 (26-34) PG MCHC 33.1 (30-36) % RDW 13.6 (11.6-14.8) % Plt Count 187 (150-400) X10^3/uL Neut % (Auto) 57.3 (50-75) % Lymph % (Auto) 29.3 (25-40) % [place] % (Auto) 10.5 (3-14) % Eos % (Auto) 2.2 (2-4) % Baso % (Auto) 0.7 (0-2) % Neut # (Auto) 4300 (6773-1066) /uL Lymph # (Auto) 2200 (2813-9998) /uL [place] # (Auto) 800 (0-900) /uL Eos # (Auto) 200 (0-450) /uL Baso # (Auto) 100 (0-100) /uL Sodium 142 (137-145) mmol/L Potassium 4.6 (3.4-5.1) mmol/L Chloride 110 H (98-107) mmol/L Carbon Dioxide 24 (22-32) mmol/L BUN 30 H (9-20) mg/dL Creatinine 1.00 (0.66-1.25) mg/dL Estimated GFR > 60 (>60) mL/min BUN/Creatinine Ratio 30.0 H (6-22) Glucose 91 (70-99) mg/dL Calcium 8.8 (8.4-10.2) mg/dL Total Bilirubin 0.4 (0.2-1.3) mg/dL AST 45 (17-59) IU/L ALT 53 H (<50) IU/L Alkaline Phosphatase 98 (38-126) U/L Total Creatine Kinase 92 (55-170) U/L Troponin I < 0.012 < 0.012 (0.01-0.034) ng/mL NT-Pro-B Natriuret Pep 77 (<450) pg/mL Total Protein 7.3 (6.3-8.2) g/dL Albumin 4.0 (3.5-5.0) g/dL Globulin 3.3 (1.7-4.1) g/dL Albumin/Globulin Ratio 1.2 (1.0-2.8) Lipase 70 (23-300) U/L Imaging Data Chest x-ray: Radiologist's Impression: PROCEDURE: XR CHEST 1V INDICATIONS: chest pain TECHNIQUE: One view of the chest was acquired. COMPARISON: [facility], CR, XR CHEST 1V, 04/14/2022, 1:08. FINDINGS: Surgical changes and devices: Left chest wall pacemaker leads are in the region of right atrium and right ventricle. Lungs and pleura: No definite focal infiltrate. No pleural effusions or pneumothorax. Mediastinum: Mildly tortuous thoracic aorta. Heart size is enlarged. Bones and chest wall: No suspicious bony lesions. Overlying soft tissues appear unremarkable. IMPRESSION: No acute cardiopulmonary pathology. Dictated by: Sandoval Encarnacion M.D. on 04/07/2025 at 11:42 CT scan - abdomen/pelvis: Radiologist's Impression: PROCEDURE: CT ABDOMEN PELVIS W CON INDICATIONS: ab pain syncope TECHNIQUE: After the administration of intravenous contrast, axial sections acquired from the lung bases to the pubic symphysis. Coronal and sagittal reformats were performed. For radiation dose reduction, the following was used: automated exposure control, adjustment of mA and/or kV according to patient size. COMPARISON: [facility], CT, CT ABDOMEN PELVIS W CON, 10/14/2018, 12:39. FINDINGS: Image quality: Diagnostic. Lower Chest: Bibasilar scarring/atelectasis is seen. Heart size is enlarged, pacemaker leads are noted. No pericardial effusion. ABDOMEN: Liver: No solid mass. Gallbladder: No radiopaque gallstones or wall thickening. Biliary ducts: No biliary dilation. Pancreas: No ductal dilation. Spleen: Size is within normal limits. Adrenal Glands: No adrenal nodules. Kidneys and Ureters: No hydronephrosis. No solid mass. Large bilateral simple appearing renal cysts are seen. No complex renal cystic lesion which requires follow up. Stomach and Bowel: Normal colonic caliber, without significant wall thickening. Appendix is visualized in right lower quadrant and is within normal limits. Extensive sigmoid diverticulosis with suggestion of descending colon and sigmoid colon wall thickening. No significant mesenteric fat stranding. No abscess collection. Peritoneum: No abnormal intraperitoneal fluid. No free air. Ventral Wall: No significant ventral hernia. Abdominal Nodes: No retroperitoneal or mesenteric adenopathy by size criteria. Vessels: Aorta and inferior vena cava are normal in size. PELVIS: Pelvic Organs: Enlarged prostate gland with mild mass effect on floor of urinary bladder.. Bladder: No bladder wall thickening, accounting for underdistention. Pelvic Nodes: No enlarged lymph nodes. Miscellaneous: No inguinal hernias are seen. Bones: No aggressive osseous abnormality. Extensive postsurgical changes are noted in mid to lower lumbar spine. No acute vertebral body compression fracture. IMPRESSION: 1. Normal appendix. No bowel obstruction. Extensive sigmoid diverticulosis. Suggestion of low-grade colitis with diffuse colonic wall thickening. Superimposed proximal sigmoid diverticulosis cannot be entirely excluded. No abscess collection. No free fluid or free air. 2. No obstructing renal stones or hydronephrosis. Enlarged prostate gland. Normal appearing urinary bladder. Simple appearing bilateral renal cysts. Dictated by: Sandoval Encarnacion M.D. on 04/07/2025 at 12:1 CT scan - head: Radiologist's Impression: PROCEDURE: CT HEAD/BRAIN WO CON INDICATIONS: syncope on eliquis TECHNIQUE: Noncontrast 4.5 mm thick angled axial sections acquired from the foramen magnum to the vertex, with coronal and sagittal reformats. For radiation dose reduction, the following was used: automated exposure control, adjustment of mA and/or kV according to patient size. COMPARISON: [facility], CT, CT HEAD/BRAIN WO CON, 01/15/2023, 19:07. FINDINGS: Image quality: Diagnostic. CSF spaces: Basal cisterns are patent. No extra-axial fluid collections. The ventricles are symmetric in size and shape. Brain: No intracranial bleeds or mass effect. There is cerebral volume loss, with resultant ventricular and sulcal prominence. There are periventricular and deep white matter chronic small vessel ischemic changes. There is intracranial internal carotid artery atherosclerosis. Skull and face: Calvarium and visualized facial bones appear intact, without suspicious lesions. Sinuses: Visualized sinuses and mastoids are clear. IMPRESSION: No acute intracranial pathology. Dictated by: Sandoval Encarnacion M.D. on 04/07/2025 at 12:13 Approved by: Sandoval Encarnacion M.D. on 04/07/2025 at 12:14 ECG Data Attestation: I personally reviewed and interpreted this ECG as follows: Interpretation: Paced rhythm rate 60 PA interval 202 QRS 72 MDM Narrative Medical decision making narrative: MDM CC: Syncope Complicating co-morbidities: Pacemaker, anticoagulation Data collected from: Patient EMS Medical records reviewed: PCP records reviewed Differential considered: Vasovagal cardiac syncope pacemaker malfunction, abdominal pathology Exam documented above, pertinent findings include: Alert 89-year-old male abdomen is soft no significant tenderness breath sounds equal no peripheral edema Lab Test results independently reviewed as above. Pertinent findings: CBC leukocytosis no anemia No electrolyte abnormality no SAMEER AST ALT slightly elevated Independently reviewed EKG as above Paced rhythm no ischemia Imaging studies independently reviewed: CT abdomen normal appendix no renal stone Head CT no acute intracranial process Chest x-ray no acute cardiopulmonary pathology Consultations: None Treatments: None Re-evaluations: Pacemaker interrogated no abnormalities Discussion: Son at bedside reports that she has passed out from pain before. Patient reports he really was not straining while he was on the commode. Blood work and CT are overall reassuring. Patient has been complaining of kind of flushing in his throat it started before his CT but he describes it as contrast related. He is not having chest pain he is not short of breath he has no anaphylactic symptoms no angioedema. reports that he does take omeprazole at home for acid reflux but he claims this is not related to acid reflux. Patient has 2- troponins this does not feel like it is chest pain or cardiac related no evidence of airway obstruction unclear what he is feeling. I do not feel this needs any further evaluation at this time. Patient ambulated in the emergency department with a walkerm, which is his baseline. Son at bedside says it sometimes he does pass out from pain. Abdomen is soft patient continues to have no pain. Discharge Plan Departure Patient Disposition: Home Clinical Impression: Syncope, vasovagal Instructions: DI for Syncope in Adults (Fainting) Activity Restrictions/Additional Instructions: *You have been diagnosed with syncope *What to do: At this time workup in the emergency department overall reassuring. You may have passed out due to pain *Continue to take medications as directed *Follow up with your primary care provider in 2-3 days or call [phone] *Return to ER if you should have recurrent episode of passing out abdominal pain falling or any new, worsening or concerning symptoms Prescriptions: No Action pravastatin 40 mg tablet 40 mg PO BEDTIME Qty: 90 3RF gabapentin 400 mg capsule See Rx Instructions PO .COMPLEX Qty: 270 3RF Rx Instructions: 1 capsule PO in AM, 2 caps in PM. losartan 100 mg tablet 100 mg PO DAILY Eliquis 5 mg tablet 2.5 mg PO BID (DME) Disabled Parking See Rx Instructions .ROUTE .MEDSUPPLY Qty: 1 0RF Rx Instructions: Patient qualifies for disabled parking as per the attached form. (DME) wheelchair See Rx Instructions .Route .MEDSUPPLY Qty: 1 0RF Rx Instructions: As directed Lightweight as patient/spouse unable to propel normal wheelchair omeprazole 40 mg capsule,delayed release(DR/EC) 40 mg PO BID Qty: 60 3RF metoprolol succinate 25 mg Tablet Extended Release 24 Hr 25 mg PO DAILY acetaminophen [Tylenol] 325 mg capsule 650 mg PO BEDTIME Referrals: Dalton Proctor MD [Primary Care Provider, Internal Medicine] Stand Alone Forms: Patient Portal/API
[2025-04-07 11:40] LABS: Alanine Aminotransferase 53 IU/L (<50); Albumin 4.0 g/dL (3.5-5.0); Albumin Globulin Ratio 1.2 (1.0-2.8); Alkaline Phosphatase 98 U/L (38-126); Blood Urea Nitrogen 30 mg/dL (9-20); Calcium 8.8 mg/dL (8.4-10.2); Carbon Dioxide 24 mmol/L (22-32); Chloride 110 mmol/L (98-107); Creatine Kinase 92 U/L (55-170); Estimated Glomerular Filt Rate > 60 mL/min (>60); Globulin 3.3 g/dL (1.7-4.1); Glucose 91 mg/dL (70-99); HEMOLYSIS 16 (0-50); Lipase 70 U/L (23-300); Potassium 4.6 mmol/L (3.4-5.1); Sodium 142 mmol/L (137-145); Total Protein 7.3 g/dL (6.3-8.2)
[2025-04-07 11:52] LABS: NT-proBNP (BNP-Adult 18+) 77 pg/mL (<450); Troponin I < 0.012 ng/mL (0.01-0.034)
--- NOTE | 2025-04-07 11:54 | PC.NURSE ---
This RN asks if OK to update , Jeni. Patient states yes. This RN speaks to and learns patient has a [facility] [facility] pacemaker. Patient will be coming to the ER.
--- NOTE | 2025-04-07 12:28 | PC.NURSE ---
Addendum entered by Bruce Burgos RN 04/07/25 12:32: Patient denies chest pain, denies pain in his throat or back and denies difficulty swallowing or tongue feeling large. Provider Amina is made aware of patient complaints. New verbal orders for repeat EKG and repeat troponin. Original Note: This RN attempts to interogate patient pacemaker. While in the room, patient states that feeling is coming back. Asked for clarification and patient reports warmness, like when given contrast and tightness in throat. Patient reports it is coming and going quickly. Patient denies chest pain, denies pain
--- NOTE | 2025-04-07 12:32 | EKG_ITS ---
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
--- NOTE | 2025-04-07 12:54 | PC.NURSE ---
[facility] calls and reports no alerts and no episodes today. Provider Amina made aware.
[2025-04-07 13:22] LABS: Troponin I < 0.012 ng/mL (0.01-0.034)
--- NOTE | 2025-04-07 13:52 | PC.NURSE ---
Patient able to ambulate with [facility]ICIO Robledo. Used a walker as he uses at home. Patient was steady on feet.
== END 2025-04-07 15:08 | disposition home or self-care (01) ==
PROVIDERS: Emergency Provider Emergency Medicine; Family Provider Internal Medicine; PCP Internal Medicine
DX: R55 Syncope and collapse (principal); R07.9 Chest pain, unspecified; Z95.0 Presence of cardiac pacemaker; Z86.79 Personal history of other diseases of the circulatory system; Z79.01 Long term (current) use of anticoagulants
CPT/HCPCS: 36415; 70450; 71045; 74177; 80053; 82550; 83690; 83880; 84484; 85025; 93005; 99283; 99284; Q9967